=== PATIENT | female | born 1950 | race Hispanic/Latino ===

== ENCOUNTER 2017-03-18 13:21 | Emergency (ER) | payer MEDICARE, BC ==
[~2017-03-18] VITALS: Ht 165.1 cm; Wt 90.7 kg
[~2017-03-18 13:21] MED LIST: ALPRAZOLAM0.5 MG PO; COLESTIPOL HCL1 GM PO; EMBREL; ENBREL25 MG INJ; GABAPENTIN100 MG PO; HYDROCODONE; HYDROXYZINE HCL25 MG PO; LYRICA50 MG PO; MYRBETRIQ50 MG PO; NORCO 10-325 T1 EACH PO; OTEZLA; OXYBUTYNIN CHLO10 MG PO; OXYBUTYNIN CHLOR5 M1 PO; OXYBUTYNIN PO; PANTOPRAZOLE SO40 MG PO; PEPCID20 MG PO; SERTRALINE HCL50 MG PO; TRAMADOL-ACETAMI1 EA PO; TRAZODONE HCL50 MG PO; TRAZODONE PO; TRIAMCINOLONE A15 G3 TOP; TYLENOL WITH C1 EACH PO; ULTRAM 50MG50 MG PO; VICTOZA; VICTOZA 3-0.6 MG/0.1 IJ; VICTOZA INJ; VICTOZA PO; VIIBRYD40 MG PO; XARELTO10 MG PO; ZANTAC
[2017-03-18 14:53] LABS: BASOPHILS % 0.6 % (0.0-1.0); BILIRUBIN,URINE NEGATIVE (NEGATIVE); CLARITY,URINE HAZY (CLEAR); COLOR,URINE RED (YELLOW); EOSINOPHILS # (AUTO) 0.3 (0.0-0.4); EOSINOPHILS % 9.5 % (0.0-6.0); HEMATOCRIT 33.3 % (34.2-44.1); KETONES,URINE NEGATIVE (NEGATIVE); LEUKOCYTE ESTERASE ,URINE NEGATIVE (NEGATIVE); LYMPHOCYTES # (AUTO) 0.9 (1.0-3.2); LYMPHOCYTES % 25.8 % (18.0-39.1); MEAN CORPUSCULAR HEMOGLOBIN 33.4 pg (28-32); MEAN CORPUSCULAR VOLUME 101.2 fL (81-99); MONOCYTES # (AUTO) 0.3 (0.2-0.8); MONOCYTES % 7.3 % (4.4-11.3); NEUTROPHILS % 56.5 % (38.7-80.0); NITRITE,URINE NEGATIVE (NEGATIVE); PLATELET COUNT 65 x10e3/uL (140-360); PROTEIN,URINE DIPSTICK 3+ (NEGATIVE); RED BLOOD COUNT 3.29 x10e6/uL (3.6-5.1); RED CELL DISTRIBUTION WIDTH 17.2 % (11.7-14.4); URINE UROBILINOGEN 0.2 mg/dL (0.2 - 1)
[2017-03-18 15:00] LABS: INR 1.06; PROTHROMBIN TIME 14.3 seconds (11.9-14.5)
[2017-03-18 15:01] LABS: PARTIAL THROMBOPLASTIN TIME 31.8 seconds (23.8-35.5)
[2017-03-18 15:05] LABS: RBC,URINE >50 /HPF (0-5); WBC,URINE (MAN) 0-5 /HPF (0-5)
[2017-03-18 15:06] LABS: BACTERIA,URINE FEW /HPF; EPITHELIAL CELLS,URINE FEW /LPF; MUCUS,URINE MODERATE (RARE)
[2017-03-18 15:10] LABS: ALANINE AMINOTRANSFERASE 25 IU/L (0-55); ALBUMIN/GLOBULIN RATIO 0.6 (0.8-2.0); ALKALINE PHOSPHATASE 298 IU/L (40-150); ANION GAP 12.3 mmol/L (8-16); BLOOD UREA NITROGEN 15 mg/dL (7-26); BUN/CREATININE RATIO 18 (6-25); CALCIUM 8.7 mg/dL (8.4-10.2); CARBON DIOXIDE 26 mmol/L (22-29); CHLORIDE 104 mmol/L (98-107); CREATININE, SERUM 0.82 mg/dL (0.57-1.11); EST GLOMERULAR FILTRATION RATE > 60 ML/MIN (60-); GLUCOSE 241 mg/dL (74-118); POTASSIUM 4.3 mmol/L (3.5-5.1); SODIUM 138 mmol/L (136-145)
[2017-03-18 16:17] VITALS: BP 110/73
== END 2017-03-18 16:35 | disposition home or self-care (01) ==
LOC: ER 13:21
DX: R31.9 Hematuria, unspecified (principal); I10 Essential (primary) hypertension; E11.9 Type 2 diabetes mellitus without complications; I25.2 Old myocardial infarction; I25.10 Atherosclerotic heart disease of native coronary artery without angina pectoris; G62.9 Polyneuropathy, unspecified; Z86.2 Personal history of diseases of the blood and blood-forming organs and certain disorders involving the immune mechanism
CPT/HCPCS: 36415; 80053; 81001; 85025; 85610; 85730; 99283

== ENCOUNTER 2017-07-28 16:42 | Inpatient (IN) | payer MEDICARE, BC ==
[~2017-07-28] VITALS: Ht 165.1 cm; Wt 99.3 kg
[2017-07-28] MEDS ORDERED: ASPIRIN 81 MG CHEW TAB PO ONE ×2 (17:00→22:30)
[2017-07-28 17:38] LABS: BASOPHILS % 0.7 % (0.0-1.0); EOSINOPHILS # (AUTO) 0.2 (0.0-0.4); HEMATOCRIT 34.1 % (34.2-44.1); LYMPHOCYTES # (AUTO) 1.3 (1.0-3.2); LYMPHOCYTES % 32.7 % (18.0-39.1); MEAN CORPUSCULAR HEMOGLOBIN 30.9 pg (28-32); MEAN CORPUSCULAR HGB CONC 32.3 g/dL (31-35); MEAN CORPUSCULAR VOLUME 95.8 fL (81-99); MONOCYTES # (AUTO) 0.4 (0.2-0.8); MONOCYTES % 9.2 % (4.4-11.3); NEUTROPHILS # (AUTO) 2.1 (2.1-6.9); NEUTROPHILS % 52.2 % (38.7-80.0); PLATELET COUNT 74 x10e3/uL (140-360); RED BLOOD COUNT 3.56 x10e6/uL (3.6-5.1); RED CELL DISTRIBUTION WIDTH 15.2 % (11.7-14.4)
[2017-07-28] MEDS ORDERED: ONDANSETRON HCL 4 MG ORAL DISINTEGRATING TAB PO ONE (17:45)
[2017-07-28 17:48] LABS: INR 1.25; PROTHROMBIN TIME 14.8 seconds (11.9-14.5)
[2017-07-28 17:49] LABS: PARTIAL THROMBOPLASTIN TIME 29.8 seconds (23.8-35.5)
[2017-07-28 17:59] LABS: ALANINE AMINOTRANSFERASE 36 IU/L (0-55); ALBUMIN 3.3 g/dL (3.5-5.0); ALBUMIN/GLOBULIN RATIO 0.8 (0.8-2.0); ALKALINE PHOSPHATASE 239 IU/L (40-150); ANION GAP 12.6 mmol/L (8-16); BLOOD UREA NITROGEN 12 mg/dL (7-26); BUN/CREATININE RATIO 16 (6-25); CALCIUM 8.5 mg/dL (8.4-10.2); CARBON DIOXIDE 27 mmol/L (22-29); CHLORIDE 106 mmol/L (98-107); CREATINE KINASE 311 IU/L (29-168); CREATININE, SERUM 0.74 mg/dL (0.57-1.11); EST GLOMERULAR FILTRATION RATE > 60 ML/MIN (60-); GLUCOSE 164 mg/dL (74-118); POTASSIUM 3.6 mmol/L (3.5-5.1); SODIUM 142 mmol/L (136-145)
[2017-07-28 18:30] LABS: CLARITY,URINE SL CLOUDY (CLEAR); COLOR,URINE YELLOW (YELLOW); KETONES,URINE NEGATIVE (NEGATIVE); LEUKOCYTE ESTERASE ,URINE NEGATIVE (NEGATIVE); NITRITE,URINE NEGATIVE (NEGATIVE); PROTEIN,URINE DIPSTICK NEGATIVE (NEGATIVE)
[2017-07-28 18:31] LABS: BILIRUBIN,URINE NEGATIVE (NEGATIVE); URINE UROBILINOGEN 4 mg/dL (0.2 - 1)
[2017-07-28 18:43] LABS: BACTERIA,URINE MANY /HPF; RBC,URINE 0-5 /HPF (0-5); WBC,URINE (MAN) 0-5 /HPF (0-5)
--- NOTE | 2017-07-28 18:43 | Diagnostic Imaging Report ---
PROCEDURE: A single AP view of the chest. COMPARISON: Patients [facility], , CHEST SINGLE (PORTABLE), 02/05/2017, 11:56. INDICATIONS: CHEST PAIN FINDINGS: Lines/tubes: None. Lungs: The lungs are well inflated and clear. There is no evidence of pneumonia or overt pulmonary edema. Pleura: There is no pleural effusion or pneumothorax. Heart and mediastinum: Stable mild prominence of the cardiac silhouette, which may be partly due to AP projection. Central pulmonary venous congestion. Bones: No acute bony abnormality. IMPRESSION: 1. mild central pulmonary venous congestion. Girma Jamison M.D. Dictated by: Girma Jamison M.D. on 07/28/2017 at 18:45 Electronically approved by: Girma Jamison M.D. on 07/28/2017 at 18:45
[2017-07-28 18:44] LABS: EPITHELIAL CELLS,URINE FEW /LPF; MUCUS,URINE FEW (RARE)
[2017-07-28] MEDS ORDERED: PANTOPRAZOLE 40 MG 10ML VIAL IV STA (20:37)
[2017-07-28] MEDS ORDERED: SODIUM CHLORIDE 0.9% 1000ML 1,000 ML IV STA (20:37)
--- NOTE | 2017-07-28 22:18 | Diagnostic Imaging Report ---
EXAM: CT CHEST W DATE: 07/28/2017 8:37 PM INDICATION: \S\PE PROTOCOL, PLEURITIC CP/SOB AND POS D-DIMER \S\[id number] \S\2100 COMPARISON: None TECHNIQUE: Multidetector CT scanning of the chest was performed. Coronal and sagittal multiplanar reformations were obtained. IV Contrast: 100 ml Isovue 370/300 FINDINGS: LUNGS AND PLEURA: Nonspecific 5 mm right upper lobe nodule. Mild bibasilar scarring with right lower lobe bronchiolectasis. HEART, MEDIASTINUM, VESSELS: Cardiomegaly. Scattered coronary artery and aortic atherosclerotic calcification. Main pulmonary artery is mildly enlarged, 3.3 cm. Slightly suboptimal contrast bolus; otherwise no evidence of acute pulmonary artery embolism. UPPER ABDOMEN: Cirrhotic liver with splenomegaly. Cholecystectomy MUSCULOSKELETAL: Incidental remote anterior right rib fracture. IMPRESSION: 1. No evidence of acute pulmonary artery embolism. 2. Nonspecific 5 mm right upper lobe nodule. Consider 12 month follow-up if at high risk for lung cancer. 3. Cirrhosis with evidence of portal hypertension. Signed by: Dr Julia Ortiz MD on 07/28/2017 10:15 PM
[2017-07-28] MEDS ORDERED: DEXTROSE 50% SYRINGE 50 ML IV PRN (22:30)
[2017-07-29] VITALS (8 sets, daily range): BP systolic 113–169; BP diastolic 65–94
[2017-07-29] MEDS ORDERED: GABAPENTIN 100 MG CAP PO SCH (00:45)
[2017-07-29] MEDS ORDERED: TRAZODONE HCL 50 MG TAB PO SCH ×2 (00:45→21:00)
[2017-07-29] MEDS ORDERED: HYDROCODONE PO SCH (00:45)
[2017-07-29 01:40] LABS: CREATINE KINASE 365 IU/L (29-168)
[2017-07-29 02:41] LABS: FREE THYROXINE INDEX 1.7548 (1.4-3.8); THYROID STIMULATING HORMONE 3.403 uIU/mL (0.350-4.940)
[2017-07-29] MEDS ORDERED: SODIUM CHLORIDE 0.9% 50ML 50 ML ONE (04:19)
[2017-07-29] MEDS ORDERED: IOPAMIDOL 370 MG/ML 200 ML INFUS..BTL INJ ONE (04:20)
[2017-07-29 07:07] LABS: ALANINE AMINOTRANSFERASE 32 IU/L (0-55); ALBUMIN 2.7 g/dL (3.5-5.0); ALBUMIN/GLOBULIN RATIO 0.8 (0.8-2.0); ALKALINE PHOSPHATASE 226 IU/L (40-150); ANION GAP 7.7 mmol/L (8-16); BLOOD UREA NITROGEN 11 mg/dL (7-26); BUN/CREATININE RATIO 17 (6-25); CALCIUM 8.1 mg/dL (8.4-10.2); CARBON DIOXIDE 27 mmol/L (22-29); CHLORIDE 105 mmol/L (98-107); CHOL/HDL RATIO 1.7 (3.0-3.6); CHOLESTEROL 134 MD/DL (0-199); CREATININE, SERUM 0.63 mg/dL (0.57-1.11); EST GLOMERULAR FILTRATION RATE > 60 ML/MIN (60-); GLUCOSE 116 mg/dL (74-118); HDL CHOLESTEROL 77 MG/DL (40-60); LDL CHOLESTEROL 46 MG/DL (60-130); POTASSIUM 3.7 mmol/L (3.5-5.1); SODIUM 136 mmol/L (136-145); TRIGLYCERIDES 55 MG/DL (0-149)
[2017-07-29 07:28] LABS: CREATINE KINASE 406 IU/L (29-168)
[2017-07-29 07:49] LABS: BASOPHILS % 1.1 % (0.0-1.0); EOSINOPHILS # (AUTO) 0.1 (0.0-0.4); EOSINOPHILS % 6.3 % (0.0-6.0); HEMATOCRIT 28.5 % (34.2-44.1); HEMOGLOBIN 9.3 g/dL (12.0-16.0); LYMPHOCYTES # (AUTO) 0.7 (1.0-3.2); LYMPHOCYTES % 36.5 % (18.0-39.1); MEAN CORPUSCULAR HEMOGLOBIN 30.9 pg (28-32); MEAN CORPUSCULAR HGB CONC 32.6 g/dL (31-35); MEAN CORPUSCULAR VOLUME 94.7 fL (81-99); MONOCYTES # (AUTO) 0.2 (0.2-0.8); MONOCYTES % 10.6 % (4.4-11.3); NEUTROPHILS # (AUTO) 0.9 (2.1-6.9); NEUTROPHILS % 45.5 % (38.7-80.0); RED BLOOD COUNT 3.01 x10e6/uL (3.6-5.1); RED CELL DISTRIBUTION WIDTH 15.1 % (11.7-14.4)
[2017-07-29 07:56] LABS: PLATELET COUNT 47 x10e3/uL (140-360)
[2017-07-29] MEDS: INSULIN REGULAR, HUMAN 100 UNIT/1 ML 3ML VIAL SQ SCH ×4 (09:29→20:42)
[2017-07-29] MEDS: ASPIRIN 81 MG ENTERIC COATED PO SCH (09:29)
[2017-07-29 09:41] LABS: PLATELET ESTIMATE MARKEDLY DECREASED; PLATELET MORPHOLOGY COMMENT FEW LARGE; RBC MORPHOLOGY COMMENT NORMAL
[2017-07-29 09:42] LABS: ANISOCYTOSIS SLIG; HYPOCHROMASIA SLIGHT; POIKILOCYTOSIS SLIGHT
[2017-07-29] MEDS: GABAPENTIN 300 MG CAP PO SCH ×2 (15:03→20:44)
[2017-07-29 15:29] LABS: CREATINE KINASE 405 IU/L (29-168)
[2017-07-29] MEDS ORDERED: ACETAMINOPHEN 325 MG TAB PO PRN ×2 (16:15→18:45)
[2017-07-29] MEDS: HYDROCODONE/APAP 5MG-325MG TAB PO PRN ×2 (16:54→23:36)
[2017-07-29] MEDS: AMLODIPINE BESYLATE 5 MG TAB PO SCH (18:36)
[2017-07-29] MEDS: METOPROLOL TARTRATE 25 MG TAB PO SCH (18:36)
--- NOTE | 2017-07-29 20:03 | History and Physical ---
HISTORY OF PRESENT ILLNESS: A 66-year-old female, past medical history positive for diabetes with polyneuropathy, cirrhosis of the liver, history of right above knee amputation that came to the hospital because she was transferred from Dr. Terry's office because of palpitation and chest pain. So far, EKG is normal and troponins are completely normal. REVIEW OF SYSTEMS: CARDIOVASCULAR: She did have an episode of chest pain which is resolved and palpitations which are resolved. RESPIRATORY: No shortness of breath. No cough. GASTROINTESTINAL: No nausea, no vomiting, no diarrhea. GENITOURINARY: No dysuria, but she does have frequent urination. ALLERGIES: ALLERGIC TO MORPHINE. SOCIAL HISTORY: She does not smoke. She does not drink. PAST MEDICAL HISTORY: Overactive bladder, diabetes mellitus type 2 with polyneuropathy, cirrhosis of the liver, pancytopenia, history of right above knee amputation, history of obesity, history of hypertension, history of anemia, history hyperlipidemia, gastroesophageal reflux disease, anxiety, depression. PHYSICAL EXAMINATION: VITAL SIGNS: Blood pressure 146/88, temperature 98.8, heart rate 96 per minute, respiratory rate is 18 per minute, oxygen saturation 97%. Chest CT is completely normal. No evidence of pulmonary embolism. She has a lung nodule. LABS: On the BMP, sodium 136, potassium 3.7, chloride 105, CO2 27, BUN 11, creatinine 0.63, glucose 116. On the CBC, white blood count 1.99, hemoglobin 9.3, hematocrit 28.5, platelet count 47,000. PT 14.8, INR 1.25, PTT 29.8. AST 76, ALT 32, total bilirubin 1.5, alkaline phosphatase 226. FINAL IMPRESSION: 1. Episode of chest pain with negative troponins and normal electrocardiogram. 2. Palpitations which are resolved. 3. Overactive bladder. 4. Uncontrolled diabetes mellitus type 2 with diabetic polyneuropathy. 5. Cirrhosis of the liver. 6. Pancytopenia secondary to cirrhosis of the liver. 7. Left knee pain. 8. Bilateral shoulder pain. PLAN OF TREATMENT: We are going to continue aspirin 81 mg daily. Continue monitoring blood sugar a.c. and nightly. [place] 5 per 325 mg q.4 h. as needed for severe pain and Tylenol 325 mg q.4 h. as needed for mild to moderate pain or fever. Continue gabapentin 600 mg twice a day. She is taking trazodone 100 mg at bedtime also. Cardiology consult with Dr. Terry. We are going to also start her on Vesicare 5 mg daily for the overactive bladder and I am going to order UA and urine culture also. Continue with the rest of medications. We are going to also consult Dr. Tripathi for physical therapy. The patient is unable to ambulate due to the right above knee amputation. She is extremely limited because of that and progressive weakness. So we are going to see if she can qualify for inpatient rehab. Job#: [id number] LUIS FELIPE
--- NOTE | 2017-07-29 20:10 | Diagnostic Imaging Report ---
EXAMINATION: SHOULDER RIGHT COMPLETE 07/29/2017 6:37 PM COMPARISON: None INDICATION: Right shoulder pain DISCUSSION: 2 views of the right shoulder (AP internal and external rotation) Internal and external rotation are adequate No fracture or dislocation. Degenerative changes at the right acromioclavicular joint. Soft tissues are unremarkable IMPRESSION: No acute radiographic abnormality of the right shoulder Gatito Moreau MD Signed by: Dr. Gatito Moreau M.D. on 07/29/2017 8:07 PM
--- NOTE | 2017-07-29 20:11 | Diagnostic Imaging Report ---
EXAMINATION: SHOULDER LEFT COMPLETE 07/29/2017 6:37 PM COMPARISON: None INDICATION: Left shoulder pain DISCUSSION: 2 views of the left shoulder (AP internal and external rotation) Internal and external rotation are adequate No fracture or dislocation. Joint spaces are maintained. Soft tissues are unremarkable IMPRESSION: No acute radiographic abnormality of the left shoulder Gatito Moreau MD Signed by: Dr. Gatito Moreau M.D. on 07/29/2017 8:08 PM
--- NOTE | 2017-07-29 20:14 | Diagnostic Imaging Report ---
EXAMINATION: KNEE LEFT THREE VIEWS 07/29/2017 6:37 PM COMPARISON: None INDICATION: Left knee and ankle pain DISCUSSION: 2 views of the left knee (AP and lateral) Hardware components of a left total knee arthroplasty are in anatomic alignment. No evidence of loosening or other hardware complication. No fracture or dislocation. There is heterotopic bone formation. No fracture. IMPRESSION: Postsurgical changes to the left knee. No fracture. Gatito Moreau MD Signed by: Dr. Gatito Moreau M.D. on 07/29/2017 8:11 PM
--- NOTE | 2017-07-29 20:16 | Diagnostic Imaging Report ---
EXAMINATION: ANKLE 3+ VIEWS LEFT 07/29/2017 6:37 PM COMPARISON: None INDICATION: Left ankle pain DISCUSSION: 3 views of the left ankle (AP, lateral, and oblique) No fracture or dislocation. Degenerative changes of the left ankle. The bones are demineralized. Small calcaneal heel spur and Achilles tendon enthesophyte. Soft tissues are unremarkable IMPRESSION: No acute radiographic abnormality of the left ankle Gatito Moreau MD Signed by: Dr. Gatito Moreau M.D. on 07/29/2017 8:12 PM
[2017-07-29] MEDS: TRAZODONE HCL 50 MG TAB PO SCH (20:44)
--- NOTE | 2017-07-29 21:14 | Consultation ---
DATE OF CONSULTATION: July 29, 2017 REASON FOR CONSULTATION: 1. History of right AKA. 2. Cirrhosis of the liver. 3. Diabetes. 4. Diabetic peripheral polyneuropathy. 5. Recent chest pains. HISTORY: This 66-year-old female who came in to the hospital because of chest pain and palpitations. EKG was normal. Troponins were normal. She has concomitant right AKA. She has a prosthesis, but says that the home health nurse that she was getting was pretty much not able to do anything for her, could not get her up and mobilize. She had a stump sales trainee. Her workup is in progress, and I am being asked to evaluate for rehab needs. The patient also had a recent fall about a week ago. PAST MEDICAL HISTORY: Includes diabetes, diabetic peripheral neuropathy, cirrhosis of the liver, pancytopenia, history of right AKA, obesity, hypertension, anemia, history of hyperlipidemia, reflux, anxiety, depression. PAST SURGICAL HISTORY: Right AKA. ALLERGIES: MORPHINE. HABITS: Nonsmoker, nondrinker. LABORATORY DATA: White cell count 1.89, hemoglobin 9.3, hematocrit 28.5, platelets 47,000, sodium 136. PHYSICAL EXAMINATION GENERAL: The patient is awake and alert, lying in bed in no apparent distress at this time, following commands. For the most part feels well; otherwise, except for some soreness to her backside where she fell. Sensory krishnamurthy, there is neuropathic changes to the left leg. Also, had some tingling sensation to right residual limb. The residual limb is healed well. EYES: Gaze is conjugate. HEART: Regular rate and rhythm. LUNGS: Clear. ABDOMEN: Obese. Bowel sounds are heard. EXTREMITIES: Full range of motion to the arms. She feels weak overall. The left leg demonstrates functional range of motion. The right leg she can move her hip fairly and again the stump has healed. She ___ with her stump sales trainee. IMPRESSION 1. Chest pains. Her pain has improved. Cardiac workup essentially negative. 2. Patient with right [id number] and has not in home therapy been able to get her up and mobilized and use her prosthesis properly. She, in fact, fell the other day. 3. Diabetic neuropathy effecting gait and mobility. 4. Obesity. 5. History of previous leg infections. 6. Cirrhosis of the liver. PLAN: Given her situation, the fact that she probably needs inpatient rehab, so that they can really work on her prosthesis, and prosthetic gait training. She does not really have rehab outpatient, and given her medical issues and her functional issues, inpatient rehab would be of benefit because she will need medical management as well as acute PT and OT management. Will work on trying to get her to rehab on Tuesday. PRECAUTIONS: Falls. Thank you once again for allowing me to participate in the care of this very interesting patient. Job#: [id number]
--- NOTE | 2017-07-29 21:51 | Consultation ---
DATE OF CONSULTATION: CARDIOLOGY CONSULTATION REASON FOR CONSULTATION: Chest pain. PROFESSOR OF MUSIC PHYSICIAN: Dr. Granda. HISTORY OF PRESENT ILLNESS: Ms. Harden is a 66-year-old female that was seen in our clinic yesterday and requested to come to the ER due to reports of chest pain for the last 3 weeks and found to be in A-flutter with a rapid ventricular response. The patient reports experiencing chest pain at rest for the last 3 weeks, however, she was not sure what to do about it, she came to our clinic. Upon examination, the patient was requested to go to the ER. At this moment, the patient denies any chest pain or palpitation. Her EKG, she is currently in sinus rhythm. She does report that she had been in good health, however, she did experience a fall about a week ago and now is experiencing severe left knee and leg pain and also increased swelling. She denies any fever, chills, dizziness, syncope, dysuria or constipation. REVIEW OF SYSTEMS: Negative except as mentioned above. PAST MEDICAL HISTORY: 1. Diabetes mellitus. 2. Hypertension. 3. Dyslipidemia. 4. Prior infected right knee prosthesis, now status post AKA. 5. History of type 2 AR. 6. Anemia. 7. Thrombocytopenia. PAST SURGICAL HISTORY: Knee replacement, right AKA, hysterectomy, appendectomy. FAMILY HISTORY: Noncontributory. PHYSICAL EXAMINATION: VITAL SIGNS: Temperature 98.8, pulse 96, respiratory rate 18, blood pressure 146/88, oxygen saturation 97% on room air. GENERAL: Alert and oriented times 3. Resting comfortably in bed. Does not appear to be in any acute distress at this time. NECK: Supple. No JVD noted. LUNGS: Diminished breath sounds in posterior lower lobes. Otherwise, clear to auscultation. CARDIOVASCULAR: Regular rate and rhythm. Normal S1, S2. A 3/6 systolic ejection murmur noted. ABDOMEN: Soft, nontender. LOWER EXTREMITIES: Right AKA. Left lower extremity 4+ pitting edema, tender to touch. SKIN: Scattered psoriasis patches throughout. CARDIOVASCULAR MEDICATION: Aspirin 81 mg p.o. daily. LABS: WBC 1.89, hemoglobin 9.3, hematocrit 28.5, platelets 47,000. Sodium 136, potassium 3.7, BUN 11, creatinine 0.63. Creatinine kinase 405, CK-MB 2.80, troponin less than 0.001. LDL 46, HDL 77, total cholesterol 134, triglycerides 55. IMAGING: Chest x-ray with mild central pulmonary venous congestion. Chest CT with no evidence of pulmonary emboli and a nonspecific right upper lobe nodule and liver cirrhosis with evidence of hypertension. Telemetry: Sinus tachycardia. IMPRESSION: 1. Paroxysmal atrial flutter, currently in sinus rhythm. 2. Portal hypertension. 3. Liver cirrhosis. 4. Leukopenia. 5. Thrombocytopenia. 6. Anemia. PLAN: Continue with maintaining the patient on telemetry. Discontinue aspirin for now in the light of thrombocytopenia and platelet count less than 50,000. Initiate beta martha and calcium channel martha for now. Consider hematology consult. Obtain left lower extremity Doppler, rule out DVT. Echo ordered, already completed. Consider infectious disease consult in light of leukopenia above. Monitor this patient very closely. Thank you, Dr. Granda, for this consultation. Will continue to follow the patient. Job#: [id number]
[2017-07-30] VITALS (9 sets, daily range): BP systolic 105–135; BP diastolic 55–72
[2017-07-30] MEDS: INSULIN REGULAR, HUMAN 100 UNIT/1 ML 3ML VIAL SQ SCH ×4 (08:53→20:40)
[2017-07-30] MEDS: SOLIFENACIN SUCCINATE 5 MG TAB PO SCH (08:54)
[2017-07-30] MEDS: AMLODIPINE BESYLATE 5 MG TAB PO SCH (08:54)
[2017-07-30] MEDS: ASPIRIN 81 MG ENTERIC COATED PO SCH (08:54)
[2017-07-30] MEDS: GABAPENTIN 300 MG CAP PO SCH ×2 (08:54→20:38)
[2017-07-30] MEDS: FUROSEMIDE 40 MG TAB PO SCH (08:54)
[2017-07-30] MEDS: METOPROLOL TARTRATE 25 MG TAB PO SCH ×2 (08:54→16:55)
[2017-07-30] MEDS: LIRAGLUTIDE 0.6 MG IJ SCH (09:00)
[2017-07-30] MEDS ORDERED: ETANERCEPT 50 MG SQ SCH (09:00)
[2017-07-30] MEDS: HYDROCODONE/APAP 5MG-325MG TAB PO PRN ×2 (11:56→20:41)
--- NOTE | 2017-07-30 14:41 | Progress Note ---
DATE: July 30, 2017 CARDIOLOGY PROGRESS NOTE REFERRING PHYSICIAN: John Granda MD SUBJECTIVE: Shortness of breath overall improved. No chest pain currently, feels better. TELEMETRY: Sinus rhythm. OBJECTIVE VITAL SIGNS: Temperature 96.9, heart rate 67, respiratory rate 18, blood pressure 105/59. O2 sat is 98% on room air. GENERAL: No acute distress. CHEST: Clear to auscultation. CARDIOVASCULAR: Regular rate and rhythm. Normal S1 and S2. ABDOMEN: Soft. EXTREMITIES: Right AKA. There is 2+ edema to left lower extremity. Psoriasis patches throughout. CARDIOVASCULAR MEDICATIONS: Include: 1. Furosemide 40 mg daily. 2. Aspirin 81 mg daily. LABS: Studies from yesterday: White blood cells 1.8, hemoglobin 9.3, platelets 47. INR 1.2. Glucose 161. Troponins were negative x4. Creatinine was 0.6. ASSESSMENT 1. Paroxysmal atrial flutter, currently in sinus rhythm. 2. Portal hypertension. 3. Liver cirrhosis. 4. Pancytopenia. 5. Diabetes mellitus. 6. Hypertension. 7. Dyslipidemia. 8. Status post right above-knee amputation. 9. History of type-2 myocardial infarction in the past. RECOMMENDATIONS 1. Platelets less than 50,000. Can hold off aspirin for now. Once recovered, can resume as needed. 2. Beta martha and amlodipine as well as diuretics can be continued. 3. Consider hematology consultation. 4. Echo reviewed, please see report. 5. Will follow closely with you. Job#: [id number]
[2017-07-30] MEDS: TRAZODONE HCL 50 MG TAB PO SCH (20:38)
[2017-07-31] VITALS (7 sets, daily range): BP systolic 105–126; BP diastolic 59–75
[2017-07-31] MEDS: INSULIN REGULAR, HUMAN 100 UNIT/1 ML 3ML VIAL SQ SCH ×4 (07:30→20:36)
[2017-07-31] MEDS: LIRAGLUTIDE 0.6 MG IJ SCH (07:56)
[2017-07-31] MEDS: METOPROLOL TARTRATE 25 MG TAB PO SCH ×2 (08:44→16:42)
[2017-07-31] MEDS: ASPIRIN 81 MG ENTERIC COATED PO SCH (08:44)
[2017-07-31] MEDS: HYDROCODONE/APAP 5MG-325MG TAB PO PRN ×2 (08:44→20:21)
[2017-07-31] MEDS: GABAPENTIN 300 MG CAP PO SCH (08:44)
[2017-07-31] MEDS: FUROSEMIDE 40 MG TAB PO SCH (08:44)
[2017-07-31] MEDS: AMLODIPINE BESYLATE 5 MG TAB PO SCH (08:44)
[2017-07-31] MEDS: SOLIFENACIN SUCCINATE 5 MG TAB PO SCH (08:44)
[2017-07-31] MEDS ORDERED: ASPIRIN 81 MG CHEW TAB PO ONE (14:30)
--- NOTE | 2017-07-31 15:08 | Progress Note ---
DATE: July 31, 2017 CARDIOLOGY PROGRESS NOTE SUBJECTIVE: Feels better today. Breathing improved. No chest pain. OBJECTIVE VITALS: Temperature 98 degrees, heart rate 69, respiratory rate 19, blood pressure 105/59, O2 sat 95% on room air. GENERAL: No acute distress. CHEST: Clear to auscultation. CARDIOVASCULAR: Regular rate and rhythm. Normal S1 and S2. No S3. No S4. Systolic ejection murmur 1/6. ABDOMEN: Soft, nontender. EXTREMITIES: Right AKA. There is 1+ edema to left lower extremity. Psoriasis patches throughout. CARDIOVASCULAR MEDICATIONS 1. Furosemide 40 mg daily. 2. Amlodipine 5 mg daily. 3. Metoprolol titrate 25 mg b.i.d. 4. Aspirin 81 mg daily. TELEMETRY: Sinus rhythm. ASSESSMENT 1. Paroxysmal atrial flutter, currently in sinus rhythm. 2. Portal hypertension in the setting of liver cirrhosis. 3. Severe pancytopenia. 4. Diabetes mellitus. 5. Hypertension. 6. Dyslipidemia. 7. Status post right above-knee amputation. 8. History of type-2 myocardial infarction in the past. RECOMMENDATIONS 1. Continue current cardiovascular medications, beta martha and calcium channel martha. 2. For platelets less than 50,000, can hold aspirin. No cell block count today, will order for tomorrow. Glucose 170. Job#: [id number]
[2017-07-31 15:18] LABS: CREATINE KINASE 383 IU/L (29-168)
[2017-07-31] MEDS: SODIUM CHLORIDE 0.9% 1000ML 1,000 ML IV SCH (16:38)
[2017-07-31] MEDS: GABAPENTIN 400 MG CAP PO SCH (16:38)
[2017-07-31] MEDS: TRAZODONE HCL 50 MG TAB PO SCH (20:36)
[2017-08-01] VITALS: BP 112/70
[2017-08-01 04:15] VITALS: BP 95/56
[2017-08-01] MEDS: SODIUM CHLORIDE 0.9% 1000ML 1,000 ML IV SCH (05:10)
[2017-08-01 06:37] LABS: BASOPHILS % 0.7 % (0.0-1.0); EOSINOPHILS # (AUTO) 0.2 (0.0-0.4); HEMATOCRIT 28.4 % (34.2-44.1); LYMPHOCYTES # (AUTO) 0.9 (1.0-3.2); LYMPHOCYTES % 32.6 % (18.0-39.1); MEAN CORPUSCULAR HEMOGLOBIN 31.1 pg (28-32); MEAN CORPUSCULAR HGB CONC 32.4 g/dL (31-35); MEAN CORPUSCULAR VOLUME 95.9 fL (81-99); MONOCYTES # (AUTO) 0.4 (0.2-0.8); MONOCYTES % 13.8 % (4.4-11.3); NEUTROPHILS # (AUTO) 1.2 (2.1-6.9); NEUTROPHILS % 44.5 % (38.7-80.0); PLATELET COUNT 51 x10e3/uL (140-360); RED BLOOD COUNT 2.96 x10e6/uL (3.6-5.1); RED CELL DISTRIBUTION WIDTH 15.7 % (11.7-14.4)
[2017-08-01 06:41] LABS: HEMOGLOBIN 9.2 g/dL (12.0-16.0)
[2017-08-01] MEDS: INSULIN REGULAR, HUMAN 100 UNIT/1 ML 3ML VIAL SQ SCH ×4 (07:30→21:00)
[2017-08-01] MEDS: HYDROCODONE/APAP 5MG-325MG TAB PO PRN ×2 (07:42→21:01)
[2017-08-01] MEDS: LIRAGLUTIDE 0.6 MG IJ SCH (07:50)
[2017-08-01] MEDS: GABAPENTIN 400 MG CAP PO SCH ×2 (07:57→16:49)
[2017-08-01] MEDS: AMLODIPINE BESYLATE 5 MG TAB PO SCH (07:57)
[2017-08-01] MEDS: SOLIFENACIN SUCCINATE 5 MG TAB PO SCH (07:57)
[2017-08-01] MEDS: METOPROLOL TARTRATE 25 MG TAB PO SCH ×2 (07:57→16:49)
[2017-08-01] MEDS: FUROSEMIDE 40 MG TAB PO SCH (07:57)
[2017-08-01 08:00] VITALS: BP 114/55
--- NOTE | 2017-08-01 11:32 | Progress Note ---
DATE: August 01, 2017 CARDIOLOGY PROGRESS NOTE SUBJECTIVE: The patient denies chest pain or shortness of breath. She is pending admission to inpatient rehab. OBJECTIVE VITALS: Temperature 96.9 degrees, pulse 75, respiratory rate 18, blood pressure 114/55, oxygen saturation 98% on room air. GENERAL: Awake, alert, in no acute distress. CHEST: Clear to auscultation bilaterally. No wheezes or crackles. CARDIOVASCULAR: Normal rate, regular rhythm. Normal S1 and S2. A systolic murmur 1/6. ABDOMEN: Soft, nontender. EXTREMITIES: Status post right AKA. There is 1+ pitting edema in the left lower extremity. Psoriasis noted. CARDIAC MEDICATIONS 1. Furosemide 40 mg p.o. daily. 2. Amlodipine 5 mg p.o. daily. 3. Metoprolol titrate 25 mg p.o. b.i.d. LABS: WBC 2.76, hemoglobin 9.2, hematocrit 28.4, platelets 51. TELEMETRY: Normal sinus rhythm. IMPRESSION 1. Paroxysmal atrial flutter, currently sinus rhythm. 2. Portal hypertension in the setting of liver cirrhosis. 3. Severe pancytopenia. 4. Diabetes mellitus. 5. Hypertension. 6. Dyslipidemia. 7. Status post right above-knee amputation. 8. History of type-2 myocardial infarction. RECOMMENDATIONS: Continue current cardiac medications. The patient is not anticoagulated due to her thrombocytopenia. As her platelets have now risen over 50,000, resume low-dose aspirin. Monitor patient on telemetry. Thank you for this consult. We will continue to follow. Job#: [id number]
[2017-08-01 11:59] VITALS: BP 114/64
[2017-08-01] MEDS: DIPHENHYDRAMINE HCL 25 MG CAP PO PRN ×2 (13:36→19:43)
[2017-08-01 15:09] LABS: BILIRUBIN,URINE NEGATIVE (NEGATIVE); CLARITY,URINE CLEAR (CLEAR); COLOR,URINE YELLOW (YELLOW); KETONES,URINE NEGATIVE (NEGATIVE); LEUKOCYTE ESTERASE ,URINE NEGATIVE (NEGATIVE); NITRITE,URINE NEGATIVE (NEGATIVE); PROTEIN,URINE DIPSTICK NEGATIVE (NEGATIVE); URINE UROBILINOGEN 0.2 mg/dL (0.2 - 1)
[2017-08-01 15:18] LABS: EPITHELIAL CELLS,URINE RARE /LPF; MUCUS,URINE FEW (RARE); RBC,URINE 0-5 /HPF (0-5); WBC,URINE (MAN) 0-5 /HPF (0-5)
[2017-08-01 16:00] VITALS: BP 121/62
[2017-08-01 20:00] VITALS: BP 130/74
[2017-08-01] MEDS: TRAZODONE HCL 50 MG TAB PO SCH (21:00)
[2017-08-02] VITALS: BP 135/70
[2017-08-02 04:00] VITALS: BP 121/69
[2017-08-02] MEDS: INSULIN REGULAR, HUMAN 100 UNIT/1 ML 3ML VIAL SQ SCH ×3 (07:30→16:30)
[2017-08-02 07:48] VITALS: BP 106/72
[2017-08-02] MEDS: FUROSEMIDE 40 MG TAB PO SCH (08:12)
[2017-08-02] MEDS: GABAPENTIN 400 MG CAP PO SCH ×2 (08:12→16:35)
[2017-08-02] MEDS: SOLIFENACIN SUCCINATE 5 MG TAB PO SCH (08:12)
[2017-08-02] MEDS: METOPROLOL TARTRATE 25 MG TAB PO SCH ×2 (09:00→16:45)
[2017-08-02] MEDS ORDERED: ASPIRIN 81 MG ENTERIC COATED PO SCH (09:00)
[2017-08-02] MEDS: LIRAGLUTIDE 0.6 MG IJ SCH (09:00)
[2017-08-02] MEDS: AMLODIPINE BESYLATE 5 MG TAB PO SCH (09:00)
[2017-08-02 11:57] VITALS: BP 106/72
[2017-08-02 12:20] VITALS: BP 125/92
--- NOTE | 2017-08-02 14:29 | Progress Note ---
DATE: August 02, 2017 CARDIOLOGY PROGRESS NOTE SUBJECTIVE: Patient denies chest pain or shortness of breath. She is awaiting transfer to inpatient rehab. OBJECTIVE VITAL SIGNS: Temperature 96.4 degrees, pulse 89, respiratory rate 18, blood pressure 125/92, oxygen saturation 95% on room air. GENERAL: Awake, alert, in no acute distress. LUNGS: Clear to auscultation bilaterally. No wheezes or crackles. CARDIOVASCULAR: Normal rate, regular rhythm. Normal S1 and S2. Systolic murmur 1/6. ABDOMEN: Soft, nontender. EXTREMITIES: Status post right AKA, 1+ pitting edema of the left lower extremity. Dressings are noted. Psoriasis is present. CARDIAC MEDICATIONS 1. Aspirin 81 mg p.o. daily. 2. Furosemide 40 mg p.o. daily. 3. Amlodipine 5 mg p.o. daily. 4. Metoprolol tartrate 25 mg p.o. b.i.d. LABS: None today. TELEMETRY: Normal sinus rhythm. IMPRESSION 1. Paroxysmal atrial flutter, currently sinus rhythm. 2. Portal hypertension in the setting of liver cirrhosis. 3. Severe pancytopenia. 4. Diabetes mellitus. 5. Hypertension. 6. Dyslipidemia. 7. Status post right above-knee amputation. 8. History of type II myocardial infarction. RECOMMENDATIONS: Continue current cardiac medications. Patient is not on anticoagulation due to her thrombocytopenia. Monitor patient on telemetry while she is admitted. Physical therapy and rehabilitation as tolerated. Thank you for this consult. We will continue to follow. Job#: [id number] EV
[2017-08-02 15:55] VITALS: BP 121/83
--- NOTE | 2017-08-02 16:12 | Discharge Summary ---
Ms. Harden is a 66-year-old female with history of diabetes with neuropathy, liver cirrhosis, right above-knee amputation. She came to the emergency room complaining of chest pain and palpitations. She was seen by the international editorial producer. EKG and troponin were normal. Then the patient was found to have pancytopenia secondary to cirrhosis. The plan is today she is going to go to [facility] to continue her treatment. On physical examination, she is awake and alert. Temperature is 97.4, blood pressure 106/72. The heart is regular rate. The lungs are clear to auscultation. Abdomen is soft. On the blood work, potassium is 3.7, creatinine 0.63, glucose 116, white count 2.76, hemoglobin 9.2, platelets 51. ASSESSMENT AND PLAN 1. Episode of chest pain and palpitations, resolved. 2. Overactive bladder on VESIcare. 3. Urinary frequency. We are going to put a Wynn catheter. 4. Uncontrolled diabetes with neuropathy. 5. Liver cirrhosis. 6. Pancytopenia. 7. Right above-knee amputation of the leg. The plan at the present time is to continue all the medications. The patient is going to be transferred to [facility] to continue her treatment. All of this was discussed with the patient, and all questions were answered to satisfaction. Please see home medication reconciliation list. Job#: [id number]
[2017-08-02] MEDS: DIPHENHYDRAMINE HCL 25 MG CAP PO PRN (17:15)
[2017-08-02] MEDS: HYDROCODONE/APAP 5MG-325MG TAB PO PRN (17:15)
== END 2017-08-02 17:44 | DRG 309 ==
LOC: ER 16:49 → MED/SURG3 23:06
PROVIDERS: ADMIT Internal Medicine; ATTEND Internal Medicine
DX: I48.92 Unspecified atrial flutter (principal); D61.818 Other pancytopenia; K74.60 Unspecified cirrhosis of liver; D69.6 Thrombocytopenia, unspecified; E78.5 Hyperlipidemia, unspecified; I10 Essential (primary) hypertension; I25.2 Old myocardial infarction; D64.9 Anemia, unspecified; K21.9 Gastro-esophageal reflux disease without esophagitis; Z88.5 Allergy status to narcotic agent; R00.2 Palpitations; N32.81 Overactive bladder; E11.42 Type 2 diabetes mellitus with diabetic polyneuropathy; E11.65 Type 2 diabetes mellitus with hyperglycemia; M25.562 Pain in left knee; M25.512 Pain in left shoulder; Z89.611 Acquired absence of right leg above knee; D72.819 Decreased white blood cell count, unspecified; R35.0 Frequency of micturition
CPT/HCPCS: 36415; 71045; 71260; 80053; 80061; 81001; 82550; 82553; 82948; 83880; 84436; 84443; 84479; 84484; 85025; 85379; 85610; 85730; 93005; 93306; 93971; 97139; 99284; J7030; Q9967

== ENCOUNTER → 2018-03-06 | Outpatient (CLI) | payer MEDICARE, BC ==
[2018-03-06 17:52] LABS: BASOPHILS % 0.5 % (0.0-1.0); HEMOGLOBIN 8.4 g/dL (12.0-16.0); LYMPHOCYTES % 23.4 % (18.0-39.1); MEAN CORPUSCULAR HEMOGLOBIN 30.8 pg (28-32); MEAN CORPUSCULAR HGB CONC 31.1 g/dL (31-35); MEAN CORPUSCULAR VOLUME 98.9 fL (81-99); MONOCYTES # (AUTO) 0.3 (0.2-0.8); MONOCYTES % 8.3 % (4.4-11.3); NEUTROPHILS # (AUTO) 2.8 (2.1-6.9); NEUTROPHILS % 67.6 % (38.7-80.0); PLATELET COUNT 87 x10e3/uL (140-360); RED BLOOD COUNT 2.73 x10e6/uL (3.6-5.1); RED CELL DISTRIBUTION WIDTH 19.4 % (11.7-14.4)
[2018-03-06 18:54] LABS: ERYTHROCYTE SEDIMENTATION RATE 115 mm/hr (0-20)
== END ==
LOC: LAB 17:05
PROVIDERS: ATTEND Specialist
DX: T84.53XD Infection and inflammatory reaction due to internal right knee prosthesis, subsequent encounter (principal)
CPT/HCPCS: 36415; 85025; 85651; 86140

== ENCOUNTER 2018-05-11 11:50 | Inpatient (IN) | payer MEDICARE, BC ==
[~2018-05-11] VITALS: Ht 165.1 cm; Wt 101.2 kg
--- OUTSIDE RECORDS SUMMARY | 2018-05-11 11:57 | XMS REPORT ---
[facility] Address Unknown Phone Unavailable Care Team Providers Care Private Duty Lpn Name Role Phone JESSICA JOHN Unavailable Unavailable Jeanna WONG Unavailable Unavailable EDEN ALVAREZ Unavailable Unavailable Payers Payer Name Policy Type Policy Number Effective Date Expiration Date Problems This patient has no known problems. Allergies, Adverse Reactions, Alerts Allergy Name Allergy Type Status Severity Reaction(s) Onset Date Inactive Date Treating Clinician Comments No Known Allergies DA Active U 2018-04-18 00:00:00 No Known Allergies DA Active U 2018-04-07 00:00:00 No Known Allergies DA Active U 2018-01-25 00:00:00 No Known Allergies DA Active U 2017-10-19 00:00:00 Medications This patient has no known medications. Results Test Description Test Time Test Comments Text Results Atomic Results Result Comments GLUBED 2018-04-24 16:48:00 GLUBED (test code=GLUBED) 130 mg/dL 74-106 Performed by certified paper core machine operator at [facility] [id number] 11:41:00* Test Item Value Reference Range Comments GLUBED (test code=GLUBED) 134 mg/dL 74-106 Performed by certified paper core machine operator at [facility] [id number] 07:04:00* Test Item Value Reference Range Comments GLUBED (test code=GLUBED) 141 mg/dL 74-106 [facility] paper core [facility] [id number] 21:36:00* Test Item Value Reference Range Comments GLUBED (test code=GLUBED) 229 mg/dL 74-106 [facility] certified paper core machine [facility] [id number] 16:49:00* Test Item Value Reference Range Comments GLUBED (test code=GLUBED) 142 mg/dL 74-106 Performed by certified paper core machine operator at [facility] [id number] 12:26:00* Test Item Value Reference Range Comments GLUBED (test code=GLUBED) 130 mg/dL 74-106 Performed by certified paper core machine operator at [facility] [id number] 07:00:00* Test Item Value Reference Range Comments GLUBED (test code=GLUBED) 130 mg/dL 74-106 [facility] certified paper core machine [facility] COMPREHENSIVE METABOLIC [id number] 05:10:00* Test Item Value Reference Range Comments SODIUM (test code=NA) 138 mmol/L 136-145 POTASSIUM (test code=K) 4.0 mmol/L 3.5-5.1 CHLORIDE (test code=CL) 104.0 mmol/L 98-107 CARBON DIOXIDE (test code=CO2) 25.0 mmol/L 21-32 ANION GAP (test code=GAP) 13.0 10-20 GLUCOSE (test code=GLU) 119 mg/dL 74-106 BLOOD UREA NITROGEN (test code=BUN) 26 mg/dL 7-18 GLOMERULAR FILTRATION RATE (test code=GFR) 45 mL/min >=60 Estimated GFR by using Modified MDRD formula.Chronic kidney disease is defined as either kidney damageor GFR <60 mL/min/1.73 m2 for >3 months. CREATININE (test code=CREAT) 1.20 mg/dL 0.55-1.02 Note change in reference range due to change in reagent. BUN/CREATININE RATIO (test code=BUN/CREA) 20.8 10-20 TOTAL PROTEIN (test code=PROT) 6.8 gram/dL 6.4-8.2 ALBUMIN (test code=ALB) 2.0 g/dL 3.4-5.0 GLOBULIN (test code=GLOB) 4.8 gram/dL 2.7-4.2 ALBUMIN/GLOBULIN RATIO (test code=A/G) 0.4 0.75-1.50 CALCIUM (test code=CA) 7.6 mg/dL 8.5-10.1 BILIRUBIN TOTAL (test code=BILT) 1.10 mg/dL 0.0-1.0 SGOT/AST (test code=AST) 59 IUnit/L 15-37 SGPT/ALT (test code=ALT) 30 IUnit/L 12-78 ALKALINE PHOSPHATASE TOTAL (test code=ALKP) 162 IUnit/L 45-117 Note change in reference range due to change in reagent. CBC W/AUTO [id number] 04:54:00* Test Item Value Reference Range Comments WHITE BLOOD CELL (test code=WBC) 4.3 K/mm3 4.5-12.5 RED BLOOD CELL (test code=RBC) 2.87 mill/mm3 3.7-5.2 HEMOGLOBIN (test code=HGB) 8.8 gram/dL 11.5-15.5 HEMATOCRIT (test code=HCT) 27.7 % 36.0-46.0 MEAN CELL VOLUME (test code=MCV) 96.5 fL 80-98 MEAN CELL HGB (test code=MCH) 30.7 picogram 27.0-33.0 MEAN CELL HGB CONCETRATION (test code=MCHC) 31.8 gram/dL 33.0-36.0 RED CELL DISTRIBUTION WIDTH (test code=RDW) 19.2 % 11.6-16.2 RED CELL DISTRIBUTION WIDTH SD (test code=RDW-SD) 65.6 fL 37.0-51.0 PLATELET COUNT (test code=PLT) 75 K/mm3 150-450 MEAN PLATELET VOLUME (test code=MPV) 10.9 fL 6.7-11.0 NEUTROPHIL % (test code=NT%) 65.4 % 39.0-69.0 IMMATURE GRANULOCYTE % (test code=IG%) 0.2 % 0.0-5.0 LYMPHOCYTE % (test code=LY%) 18.6 % 25.0-55.0 MONOCYTE % (test code=MO%) 12.0 % 0.0-10.0 EOSINOPHIL % (test code=EO%) 3.1 % 0.0-5.0 BASOPHIL % (test code=BA%) 0.7 % 0.0-1.0 NUCLEATED RBC % (test code=NRBC%) 0.0 % 0-0 NEUTROPHIL # (test code=NT#) 2.78 K/mm3 1.8-7.7 IMMATURE GRANULOCYTE # (test code=IG#) 0.01 x10 3/uL 0-0.03 LYMPHOCYTE # (test code=LY#) 0.79 K/mm3 1.0-5.0 MONOCYTE # (test code=MO#) 0.51 K/mm3 0-0.8 EOSINOPHIL # (test code=EO#) 0.13 K/mm3 0.0-0.5 BASOPHIL # (test code=BA#) 0.03 K/mm3 0.0-0.2 NUCLEATED RBC # (test code=NRBC#) 0.00 K/mm3 0.0-0.1 MANUAL DIFF REQUIRED (test code=MDIFF) NO, ONLY SCAN NEEDED DIFFERENTIAL [id number] 04:54:00* Test Item Value Reference Range Comments STAIN ACCEPTABILITY (test code=STN ACCEPTABLE) STAIN ACCEPTABLE POLYCHROMASIA (test code=POLC) 1+ ANISOCYTOSIS (test code=ANISO) 1+ PLATELET ESTIMATE (test code=PLTEST) DECREASED PLATELET MORPHOLOGY (test code=PLTMORPH) NORMAL [id number] 04:54:00* Test Item Value Reference Range Comments AMMONIA (test code=AMM) 125 umol/L 11-32 COMPREHENSIVE METABOLIC [id number] 04:50:00* Test Item Value Reference Range Comments SODIUM (test code=NA) 138 mmol/L 136-145 POTASSIUM (test code=K) 4.0 mmol/L 3.5-5.1 CHLORIDE (test code=CL) 104.0 mmol/L 98-107 CARBON DIOXIDE (test code=CO2) mmol/L 21-32 ANION GAP (test code=GAP) 10-20 GLUCOSE (test code=GLU) mg/dL 74-106 BLOOD UREA NITROGEN (test code=BUN) mg/dL 7-18 GLOMERULAR FILTRATION RATE (test code=GFR) mL/min >=60 CREATININE (test code=CREAT) mg/dL 0.55-1.02 BUN/CREATININE RATIO (test code=BUN/CREA) 10-20 TOTAL PROTEIN (test code=PROT) gram/dL 6.4-8.2 ALBUMIN (test code=ALB) g/dL 3.4-5.0 GLOBULIN (test code=GLOB) gram/dL 2.7-4.2 ALBUMIN/GLOBULIN RATIO (test code=A/G) 0.75-1.50 CALCIUM (test code=CA) mg/dL 8.5-10.1 BILIRUBIN TOTAL (test code=BILT) mg/dL 0.0-1.0 SGOT/AST (test code=AST) IUnit/L 15-37 SGPT/ALT (test code=ALT) IUnit/L 12-78 ALKALINE PHOSPHATASE TOTAL (test code=ALKP) IUnit/L 45-117 CBC W/AUTO [id number] 04:38:00* Test Item Value Reference Range Comments WHITE BLOOD CELL (test code=WBC) 4.3 K/mm3 4.5-12.5 RED BLOOD CELL (test code=RBC) 2.87 mill/mm3 3.7-5.2 HEMOGLOBIN (test code=HGB) 8.8 gram/dL 11.5-15.5 HEMATOCRIT (test code=HCT) 27.7 % 36.0-46.0 MEAN CELL VOLUME (test code=MCV) 96.5 fL 80-98 MEAN CELL HGB (test code=MCH) 30.7 picogram 27.0-33.0 MEAN CELL HGB CONCETRATION (test code=MCHC) 31.8 gram/dL 33.0-36.0 RED CELL DISTRIBUTION WIDTH (test code=RDW) 19.2 % 11.6-16.2 RED CELL DISTRIBUTION WIDTH SD (test code=RDW-SD) 65.6 fL 37.0-51.0 PLATELET COUNT (test code=PLT) 75 K/mm3 150-450 MEAN PLATELET VOLUME (test code=MPV) 10.9 fL 6.7-11.0 NEUTROPHIL % (test code=NT%) 65.4 % 39.0-69.0 IMMATURE GRANULOCYTE % (test code=IG%) 0.2 % 0.0-5.0 LYMPHOCYTE % (test code=LY%) 18.6 % 25.0-55.0 MONOCYTE % (test code=MO%) 12.0 % 0.0-10.0 EOSINOPHIL % (test code=EO%) 3.1 % 0.0-5.0 BASOPHIL % (test code=BA%) 0.7 % 0.0-1.0 NUCLEATED RBC % (test code=NRBC%) 0.0 % 0-0 NEUTROPHIL # (test code=NT#) 2.78 K/mm3 1.8-7.7 IMMATURE GRANULOCYTE # (test code=IG#) 0.01 x10 3/uL 0-0.03 LYMPHOCYTE # (test code=LY#) 0.79 K/mm3 1.0-5.0 MONOCYTE # (test code=MO#) 0.51 K/mm3 0-0.8 EOSINOPHIL # (test code=EO#) 0.13 K/mm3 0.0-0.5 BASOPHIL # (test code=BA#) 0.03 K/mm3 0.0-0.2 NUCLEATED RBC # (test code=NRBC#) 0.00 K/mm3 0.0-0.1 MANUAL DIFF REQUIRED (test code=MDIFF) NO, ONLY SCAN NEEDED DIFFERENTIAL [id number] 04:38:00* Test Item Value Reference Range Comments STAIN ACCEPTABILITY (test code=STN ACCEPTABLE) CABOT RINGS (test code=CAB) MORPHOLOGY COMMENT (test code=MOC) PLATELET ESTIMATE (test code=PLTEST) PLATELET MORPHOLOGY (test code=PLTMORPH) CBC W/AUTO [id number] 04:38:00* Test Item Value Reference Range Comments WHITE BLOOD CELL (test code=WBC) 4.3 K/mm3 4.5-12.5 RED BLOOD CELL (test code=RBC) 2.87 mill/mm3 3.7-5.2 HEMOGLOBIN (test code=HGB) 8.8 gram/dL 11.5-15.5 HEMATOCRIT (test code=HCT) 27.7 % 36.0-46.0 MEAN CELL VOLUME (test code=MCV) 96.5 fL 80-98 MEAN CELL HGB (test code=MCH) 30.7 picogram 27.0-33.0 MEAN CELL HGB CONCETRATION (test code=MCHC) 31.8 gram/dL 33.0-36.0 RED CELL DISTRIBUTION WIDTH (test code=RDW) 19.2 % 11.6-16.2 RED CELL DISTRIBUTION WIDTH SD (test code=RDW-SD) 65.6 fL 37.0-51.0 PLATELET COUNT (test code=PLT) 75 K/mm3 150-450 MEAN PLATELET VOLUME (test code=MPV) 10.9 fL 6.7-11.0 NEUTROPHIL % (test code=NT%) 65.4 % 39.0-69.0 IMMATURE GRANULOCYTE % (test code=IG%) 0.2 % 0.0-5.0 LYMPHOCYTE % (test code=LY%) 18.6 % 25.0-55.0 MONOCYTE % (test code=MO%) 12.0 % 0.0-10.0 EOSINOPHIL % (test code=EO%) 3.1 % 0.0-5.0 BASOPHIL % (test code=BA%) 0.7 % 0.0-1.0 NUCLEATED RBC % (test code=NRBC%) 0.0 % 0-0 NEUTROPHIL # (test code=NT#) 2.78 K/mm3 1.8-7.7 IMMATURE GRANULOCYTE # (test code=IG#) 0.01 x10 3/uL 0-0.03 LYMPHOCYTE # (test code=LY#) 0.79 K/mm3 1.0-5.0 MONOCYTE # (test code=MO#) 0.51 K/mm3 0-0.8 EOSINOPHIL # (test code=EO#) 0.13 K/mm3 0.0-0.5 BASOPHIL # (test code=BA#) 0.03 K/mm3 0.0-0.2 NUCLEATED RBC # (test code=NRBC#) 0.00 K/mm3 0.0-0.1 MANUAL DIFF REQUIRED (test code=MDIFF) NO, ONLY SCAN NEEDED DIFFERENTIAL [id number] 04:38:00* Test Item Value Reference Range Comments STAIN ACCEPTABILITY (test code=STN ACCEPTABLE) MORPHOLOGY COMMENT (test code=MOC) PLATELET ESTIMATE (test code=PLTEST) PLATELET MORPHOLOGY (test code=PLTMORPH) CBC W/AUTO [id number] 04:38:00* Test Item Value Reference Range Comments WHITE BLOOD CELL (test code=WBC) 4.3 K/mm3 4.5-12.5 RED BLOOD CELL (test code=RBC) 2.87 mill/mm3 3.7-5.2 HEMOGLOBIN (test code=HGB) 8.8 gram/dL 11.5-15.5 HEMATOCRIT (test code=HCT) 27.7 % 36.0-46.0 MEAN CELL VOLUME (test code=MCV) 96.5 fL 80-98 MEAN CELL HGB (test code=MCH) 30.7 picogram 27.0-33.0 MEAN CELL HGB CONCETRATION (test code=MCHC) 31.8 gram/dL 33.0-36.0 RED CELL DISTRIBUTION WIDTH (test code=RDW) 19.2 % 11.6-16.2 RED CELL DISTRIBUTION WIDTH SD (test code=RDW-SD) 65.6 fL 37.0-51.0 PLATELET COUNT (test code=PLT) 75 K/mm3 150-450 MEAN PLATELET VOLUME (test code=MPV) 10.9 fL 6.7-11.0 NEUTROPHIL % (test code=NT%) 65.4 % 39.0-69.0 IMMATURE GRANULOCYTE % (test code=IG%) 0.2 % 0.0-5.0 LYMPHOCYTE % (test code=LY%) 18.6 % 25.0-55.0 MONOCYTE % (test code=MO%) 12.0 % 0.0-10.0 EOSINOPHIL % (test code=EO%) 3.1 % 0.0-5.0 BASOPHIL % (test code=BA%) 0.7 % 0.0-1.0 NUCLEATED RBC % (test code=NRBC%) 0.0 % 0-0 NEUTROPHIL # (test code=NT#) 2.78 K/mm3 1.8-7.7 IMMATURE GRANULOCYTE # (test code=IG#) 0.01 x10 3/uL 0-0.03 LYMPHOCYTE # (test code=LY#) 0.79 K/mm3 1.0-5.0 MONOCYTE # (test code=MO#) 0.51 K/mm3 0-0.8 EOSINOPHIL # (test code=EO#) 0.13 K/mm3 0.0-0.5 BASOPHIL # (test code=BA#) 0.03 K/mm3 0.0-0.2 NUCLEATED RBC # (test code=NRBC#) 0.00 K/mm3 0.0-0.1 MANUAL DIFF REQUIRED (test code=MDIFF) NO, ONLY SCAN NEEDED DIFFERENTIAL [id number] 04:38:00* Test Item Value Reference Range Comments STAIN ACCEPTABILITY (test code=STN ACCEPTABLE) MORPHOLOGY COMMENT (test code=MOC) PLATELET ESTIMATE (test code=PLTEST) PLATELET MORPHOLOGY (test code=PLTMORPH) CBC W/AUTO [id number] 04:38:00* Test Item Value Reference Range Comments WHITE BLOOD CELL (test code=WBC) 4.3 K/mm3 4.5-12.5 RED BLOOD CELL (test code=RBC) 2.87 mill/mm3 3.7-5.2 HEMOGLOBIN (test code=HGB) 8.8 gram/dL 11.5-15.5 HEMATOCRIT (test code=HCT) 27.7 % 36.0-46.0 MEAN CELL VOLUME (test code=MCV) 96.5 fL 80-98 MEAN CELL HGB (test code=MCH) 30.7 picogram 27.0-33.0 MEAN CELL HGB CONCETRATION (test code=MCHC) 31.8 gram/dL 33.0-36.0 RED CELL DISTRIBUTION WIDTH (test code=RDW) 19.2 % 11.6-16.2 RED CELL DISTRIBUTION WIDTH SD (test code=RDW-SD) 65.6 fL 37.0-51.0 PLATELET COUNT (test code=PLT) 75 K/mm3 150-450 MEAN PLATELET VOLUME (test code=MPV) 10.9 fL 6.7-11.0 NEUTROPHIL % (test code=NT%) 65.4 % 39.0-69.0 IMMATURE GRANULOCYTE % (test code=IG%) 0.2 % 0.0-5.0 LYMPHOCYTE % (test code=LY%) 18.6 % 25.0-55.0 MONOCYTE % (test code=MO%) 12.0 % 0.0-10.0 EOSINOPHIL % (test code=EO%) 3.1 % 0.0-5.0 BASOPHIL % (test code=BA%) 0.7 % 0.0-1.0 NUCLEATED RBC % (test code=NRBC%) 0.0 % 0-0 NEUTROPHIL # (test code=NT#) 2.78 K/mm3 1.8-7.7 IMMATURE GRANULOCYTE # (test code=IG#) 0.01 x10 3/uL 0-0.03 LYMPHOCYTE # (test code=LY#) 0.79 K/mm3 1.0-5.0 MONOCYTE # (test code=MO#) 0.51 K/mm3 0-0.8 EOSINOPHIL # (test code=EO#) 0.13 K/mm3 0.0-0.5 BASOPHIL # (test code=BA#) 0.03 K/mm3 0.0-0.2 NUCLEATED RBC # (test code=NRBC#) 0.00 K/mm3 0.0-0.1 MANUAL DIFF REQUIRED (test code=MDIFF) NO, ONLY SCAN NEEDED DIFFERENTIAL [id number] 04:38:00* Test Item Value Reference Range Comments STAIN ACCEPTABILITY (test code=STN ACCEPTABLE) CABOT RINGS (test code=CAB) MORPHOLOGY COMMENT (test code=MOC) PLATELET ESTIMATE (test code=PLTEST) PLATELET MORPHOLOGY (test code=PLTMORPH) [id number] 21:59:00* Test Item Value Reference Range Comments GLUBED (test code=GLUBED) 146 mg/dL 74-106 [facility] paper core [facility] [id number] 16:11:00* Test Item Value Reference Range Comments GLUBED (test code=GLUBED) 125 mg/dL 74-106 Performed by certified paper core machine operator at [facility] [id number] 06:36:00* Test Item Value Reference Range Comments GLUBED (test code=GLUBED) 112 mg/dL 74-106 [facility] certified paper core machine operator [facility] BASIC METABOLIC [id number] 06:05:00* Test Item Value Reference Range Comments SODIUM (test code=NA) 138 mmol/L 136-145 POTASSIUM (test code=K) 3.8 mmol/L 3.5-5.1 CHLORIDE (test code=CL) 104.0 mmol/L 98-107 CARBON DIOXIDE (test code=CO2) 25.0 mmol/L 21-32 ANION GAP (test code=GAP) 12.8 10-20 GLUCOSE (test code=GLU) 96 mg/dL 74-106 BLOOD UREA NITROGEN (test code=BUN) 30 mg/dL 7-18 GLOMERULAR FILTRATION RATE (test code=GFR) 38 mL/min >=60 Estimated GFR by using Modified MDRD formula.Chronic kidney disease is defined as either kidney damageor GFR <60 mL/min/1.73 m2 for >3 months. CREATININE (test code=CREAT) 1.40 mg/dL 0.55-1.02 Note change in reference range due to change in reagent. BUN/CREATININE RATIO (test code=BUN/CREA) 20.8 10-20 CALCIUM (test code=CA) 7.8 mg/dL 8.5-10.1 BASIC METABOLIC [id number] 05:46:00* Test Item Value Reference Range Comments SODIUM (test code=NA) 138 mmol/L 136-145 POTASSIUM (test code=K) 3.8 mmol/L 3.5-5.1 CHLORIDE (test code=CL) 104.0 mmol/L 98-107 CARBON DIOXIDE (test code=CO2) mmol/L 21-32 ANION GAP (test code=GAP) 10-20 GLUCOSE (test code=GLU) mg/dL 74-106 BLOOD UREA NITROGEN (test code=BUN) mg/dL 7-18 GLOMERULAR FILTRATION RATE (test code=GFR) mL/min >=60 CREATININE (test code=CREAT) mg/dL 0.55-1.02 BUN/CREATININE RATIO (test code=BUN/CREA) 10-20 CALCIUM (test code=CA) mg/dL 8.5-10.1 [id number] 04:40:00* Test Item Value Reference Range Comments AMMONIA (test code=AMM) 80 umol/L 11-32 [id number] 21:50:00* Test Item Value Reference Range Comments GLUBED (test code=GLUBED) 160 mg/dL 74-106 Performed by certified paper core machine operator at [facility] [id number] 16:26:00* Test Item Value Reference Range Comments GLUBED (test code=GLUBED) 148 mg/dL 74-106 Performed by certified paper core machine operator at [facility] [id number] 12:22:00* Test Item Value Reference Range Comments GLUBED (test code=GLUBED) 137 mg/dL 74-106 Performed by certified paper core machine operator at [facility] [id number] 12:21:00* Test Item Value Reference Range Comments GLUBED (test code=GLUBED) 117 mg/dL 74-106 Performed by certified paper core machine operator at [facility] BASIC METABOLIC [id number] 05:22:00* Test Item Value Reference Range Comments SODIUM (test code=NA) 140 mmol/L 136-145 POTASSIUM (test code=K) 3.7 mmol/L 3.5-5.1 CHLORIDE (test code=CL) 105.0 mmol/L 98-107 CARBON DIOXIDE (test code=CO2) 26.0 mmol/L 21-32 ANION GAP (test code=GAP) 12.7 10-20 GLUCOSE (test code=GLU) 102 mg/dL 74-106 BLOOD UREA NITROGEN (test code=BUN) 28 mg/dL 7-18 GLOMERULAR FILTRATION RATE (test code=GFR) 41 mL/min >=60 Estimated GFR by using Modified MDRD formula.Chronic kidney disease is defined as either kidney damageor GFR <60 mL/min/1.73 m2 for >3 months. CREATININE (test code=CREAT) 1.30 mg/dL 0.55-1.02 Note change in reference range due to change in reagent. BUN/CREATININE RATIO (test code=BUN/CREA) 21.7 10-20 CALCIUM (test code=CA) 8.0 mg/dL 8.5-10.1 [id number] 05:12:00* Test Item Value Reference Range Comments AMMONIA (test code=AMM) 62 umol/L 11 BASIC METABOLIC [id number] 05:11:00* Test Item Value Reference Range Comments SODIUM (test code=NA) 140 mmol/L 136-145 POTASSIUM (test code=K) 3.7 mmol/L 3.5-5.1 CHLORIDE (test code=CL) 105.0 mmol/L 98-107 CARBON DIOXIDE (test code=CO2) mmol/L -32 ANION GAP (test code=GAP) 10-20 GLUCOSE (test code=GLU) mg/dL 74-106 BLOOD UREA NITROGEN (test code=BUN) mg/dL 7-18 GLOMERULAR FILTRATION RATE (test code=GFR) mL/min >=60 CREATININE (test code=CREAT) mg/dL 0.55-1.02 BUN/CREATININE RATIO (test code=BUN/CREA) 10-20 CALCIUM (test code=CA) mg/dL 8.5-10.1 [id number] 21:49:00* Test Item Value Reference Range Comments GLUBED (test code=GLUBED) 92 mg/dL 74-106 Performed by certified paper core machine operator at [facility] [id number] 15:23:00* Test Item Value Reference Range Comments GLUBED (test code=GLUBED) 132 mg/dL 74-106 Performed by certified paper core machine operator at [facility] [id number] 11:18:00* Test Item Value Reference Range Comments GLUBED (test code=GLUBED) 187 mg/dL 74-106 Performed by certified paper core machine operator at [facility] - US ABDOMEN [id number] 07:37:00 Name: ALEX STANTON [facility] : 1950 Age/S: 67 / F [place] Unit #: [id number] Loc: [place] [address] Phys: Nicole Aguiar Acct: [id number] Dis Date: Status: ADM IN PHONE #: [phone] Exam Date: 04/20/2018 0019 FAX #: [phone] Reason: us abd screen for ascites EXAMS: CPT CODE: [id number] US ABDOMEN LTD [id number] EXAM: Ultrasound abdomen, limited; INFORMATION: HISTORY of cirrhosis; screening for ascites; FINDINGS: The liver shows a nodular surface and coarse echotexture, consistent with cirrhosis; no focal lesions. Status post cholecystectomy; no biliary dilatation. Spleen and pancreas are unremarkable; The right kidney is of normal size and shape; it measures 10.9 x 4.8 x 5.5 cm; no hydronephrosis, no stones and no parenchymal abnormalities. There is no evidence of ascites. IMPRESSION: 1. No ascites. 2. Cirrhotic liver. at 0737 Reported and signed by: Gonsalo Mayorga M.D. CC: Blayne Lopez Shama PA Technologist: SOREN WONG RDMS Trnscb Date/Time: 04/20/2018 (0737) [facility] Print D/T: S: 04/20/2018 (0740) Probe: PAGE 1 Signed Report CBC W/AUTO [id number] 06:56:00* Test Item Value Reference Range Comments WHITE BLOOD CELL (test code=WBC) 4.1 K/mm3 4.5-12.5 RED BLOOD CELL (test code=RBC) 2.95 mill/mm3 3.7-5.2 HEMOGLOBIN (test code=HGB) 9.0 gram/dL 11.5-15.5 HEMATOCRIT (test code=HCT) 28.6 % 36.0-46.0 MEAN CELL VOLUME (test code=MCV) 96.9 fL 80-98 MEAN CELL HGB (test code=MCH) 30.5 picogram 27.0-33.0 MEAN CELL HGB CONCETRATION (test code=MCHC) 31.5 gram/dL 33.0-36.0 RED CELL DISTRIBUTION WIDTH (test code=RDW) 19.7 % 11.6-16.2 RED CELL DISTRIBUTION WIDTH SD (test code=RDW-SD) 69.7 fL 37.0-51.0 PLATELET COUNT (test code=PLT) 82 K/mm3 150-450 MEAN PLATELET VOLUME (test code=MPV) 11.5 fL 6.7-11.0 NEUTROPHIL % (test code=NT%) 60.2 % 39.0-69.0 IMMATURE GRANULOCYTE % (test code=IG%) 0.2 % 0.0-5.0 LYMPHOCYTE % (test code=LY%) 23.8 % 25.0-55.0 MONOCYTE % (test code=MO%) 12.9 % 0.0-10.0 EOSINOPHIL % (test code=EO%) 2.2 % 0.0-5.0 BASOPHIL % (test code=BA%) 0.7 % 0.0-1.0 NUCLEATED RBC % (test code=NRBC%) 0.0 % 0-0 NEUTROPHIL # (test code=NT#) 2.48 K/mm3 1.8-7.7 IMMATURE GRANULOCYTE # (test code=IG#) 0.01 x10 3/uL 0-0.03 LYMPHOCYTE # (test code=LY#) 0.98 K/mm3 1.0-5.0 MONOCYTE # (test code=MO#) 0.53 K/mm3 0-0.8 EOSINOPHIL # (test code=EO#) 0.09 K/mm3 0.0-0.5 BASOPHIL # (test code=BA#) 0.03 K/mm3 0.0-0.2 NUCLEATED RBC # (test code=NRBC#) 0.00 K/mm3 0.0-0.1 MANUAL DIFF REQUIRED (test code=MDIFF) NO, ONLY SCAN NEEDED DIFFERENTIAL [id number] 06:56:00* Test Item Value Reference Range Comments STAIN ACCEPTABILITY (test code=STN ACCEPTABLE) STAIN ACCEPTABLE PLATELET ESTIMATE (test code=PLTEST) DECREASED PLATELET MORPHOLOGY (test code=PLTMORPH) NORMAL BASIC METABOLIC [id number] 06:02:00* Test Item Value Reference Range Comments SODIUM (test code=NA) 142 mmol/L 136-145 POTASSIUM (test code=K) 3.6 mmol/L 3.5-5.1 CHLORIDE (test code=CL) 106.0 mmol/L 98-107 CARBON DIOXIDE (test code=CO2) 28.0 mmol/L 21-32 ANION GAP (test code=GAP) 11.6 10-20 GLUCOSE (test code=GLU) 137 mg/dL 74-106 BLOOD UREA NITROGEN (test code=BUN) 28 mg/dL 7-18 GLOMERULAR FILTRATION RATE (test code=GFR) 38 mL/min >=60 Estimated GFR by using Modified MDRD formula.Chronic kidney disease is defined as either kidney damageor GFR <60 mL/min/1.73 m2 for >3 months. CREATININE (test code=CREAT) 1.40 mg/dL 0.55-1.02 Note change in reference range due to change in reagent. BUN/CREATININE RATIO (test code=BUN/CREA) 20.1 10-20 CALCIUM (test code=CA) 7.9 mg/dL 8.5-10.1 BASIC METABOLIC [id number] 05:58:00* Test Item Value Reference Range Comments SODIUM (test code=NA) 142 mmol/L 136-145 POTASSIUM (test code=K) 3.6 mmol/L 3.5-5.1 CHLORIDE (test code=CL) 106.0 mmol/L 98-107 CARBON DIOXIDE (test code=CO2) mmol/L 21-32 ANION GAP (test code=GAP) 10-20 GLUCOSE (test code=GLU) mg/dL 74-106 BLOOD UREA NITROGEN (test code=BUN) mg/dL 7-18 GLOMERULAR FILTRATION RATE (test code=GFR) mL/min >=60 CREATININE (test code=CREAT) mg/dL 0.55-1.02 BUN/CREATININE RATIO (test code=BUN/CREA) 10-20 CALCIUM (test code=CA) mg/dL 8.5-10.1 [id number] 05:45:00* Test Item Value Reference Range Comments GLUBED (test code=GLUBED) 114 mg/dL 74-106 Performed by certified paper core machine operator at [facility] CBC W/AUTO [id number] 05:36:00* Test Item Value Reference Range Comments WHITE BLOOD CELL (test code=WBC) 4.1 K/mm3 4.5-12.5 RED BLOOD CELL (test code=RBC) 2.95 mill/mm3 3.7-5.2 HEMOGLOBIN (test code=HGB) 9.0 gram/dL 11.5-15.5 HEMATOCRIT (test code=HCT) 28.6 % 36.0-46.0 MEAN CELL VOLUME (test code=MCV) 96.9 fL 80-98 MEAN CELL HGB (test code=MCH) 30.5 picogram 27.0-33.0 MEAN CELL HGB CONCETRATION (test code=MCHC) 31.5 gram/dL 33.0-36.0 RED CELL DISTRIBUTION WIDTH (test code=RDW) 19.7 % 11.6-16.2 RED CELL DISTRIBUTION WIDTH SD (test code=RDW-SD) 69.7 fL 37.0-51.0 PLATELET COUNT (test code=PLT) 82 K/mm3 150-450 MEAN PLATELET VOLUME (test code=MPV) 11.5 fL 6.7-11.0 NEUTROPHIL % (test code=NT%) 60.2 % 39.0-69.0 IMMATURE GRANULOCYTE % (test code=IG%) 0.2 % 0.0-5.0 LYMPHOCYTE % (test code=LY%) 23.8 % 25.0-55.0 MONOCYTE % (test code=MO%) 12.9 % 0.0-10.0 EOSINOPHIL % (test code=EO%) 2.2 % 0.0-5.0 BASOPHIL % (test code=BA%) 0.7 % 0.0-1.0 NUCLEATED RBC % (test code=NRBC%) 0.0 % 0-0 NEUTROPHIL # (test code=NT#) 2.48 K/mm3 1.8-7.7 IMMATURE GRANULOCYTE # (test code=IG#) 0.01 x10 3/uL 0-0.03 LYMPHOCYTE # (test code=LY#) 0.98 K/mm3 1.0-5.0 MONOCYTE # (test code=MO#) 0.53 K/mm3 0-0.8 EOSINOPHIL # (test code=EO#) 0.09 K/mm3 0.0-0.5 BASOPHIL # (test code=BA#) 0.03 K/mm3 0.0-0.2 NUCLEATED RBC # (test code=NRBC#) 0.00 K/mm3 0.0-0.1 MANUAL DIFF REQUIRED (test code=MDIFF) NO, ONLY SCAN NEEDED DIFFERENTIAL [id number] 05:36:00* Test Item Value Reference Range Comments STAIN ACCEPTABILITY (test code=STN ACCEPTABLE) CABOT RINGS (test code=CAB) MORPHOLOGY COMMENT (test code=MOC) PLATELET ESTIMATE (test code=PLTEST) PLATELET MORPHOLOGY (test code=PLTMORPH) CBC W/AUTO [id number] 05:36:00* Test Item Value Reference Range Comments WHITE BLOOD CELL (test code=WBC) 4.1 K/mm3 4.5-12.5 RED BLOOD CELL (test code=RBC) 2.95 mill/mm3 3.7-5.2 HEMOGLOBIN (test code=HGB) 9.0 gram/dL 11.5-15.5 HEMATOCRIT (test code=HCT) 28.6 % 36.0-46.0 MEAN CELL VOLUME (test code=MCV) 96.9 fL 80-98 MEAN CELL HGB (test code=MCH) 30.5 picogram 27.0-33.0 MEAN CELL HGB CONCETRATION (test code=MCHC) 31.5 gram/dL 33.0-36.0 RED CELL DISTRIBUTION WIDTH (test code=RDW) 19.7 % 11.6-16.2 RED CELL DISTRIBUTION WIDTH SD (test code=RDW-SD) 69.7 fL 37.0-51.0 PLATELET COUNT (test code=PLT) 82 K/mm3 150-450 MEAN PLATELET VOLUME (test code=MPV) 11.5 fL 6.7-11.0 NEUTROPHIL % (test code=NT%) 60.2 % 39.0-69.0 IMMATURE GRANULOCYTE % (test code=IG%) 0.2 % 0.0-5.0 LYMPHOCYTE % (test code=LY%) 23.8 % 25.0-55.0 MONOCYTE % (test code=MO%) 12.9 % 0.0-10.0 EOSINOPHIL % (test code=EO%) 2.2 % 0.0-5.0 BASOPHIL % (test code=BA%) 0.7 % 0.0-1.0 NUCLEATED RBC % (test code=NRBC%) 0.0 % 0-0 NEUTROPHIL # (test code=NT#) 2.48 K/mm3 1.8-7.7 IMMATURE GRANULOCYTE # (test code=IG#) 0.01 x10 3/uL 0-0.03 LYMPHOCYTE # (test code=LY#) 0.98 K/mm3 1.0-5.0 MONOCYTE # (test code=MO#) 0.53 K/mm3 0-0.8 EOSINOPHIL # (test code=EO#) 0.09 K/mm3 0.0-0.5 BASOPHIL # (test code=BA#) 0.03 K/mm3 0.0-0.2 NUCLEATED RBC # (test code=NRBC#) 0.00 K/mm3 0.0-0.1 MANUAL DIFF REQUIRED (test code=MDIFF) NO, ONLY SCAN NEEDED DIFFERENTIAL [id number] 05:36:00* Test Item Value Reference Range Comments STAIN ACCEPTABILITY (test code=STN ACCEPTABLE) CABOT RINGS (test code=CAB) MORPHOLOGY COMMENT (test code=MOC) PLATELET ESTIMATE (test code=PLTEST) PLATELET MORPHOLOGY (test code=PLTMORPH) CBC W/AUTO [id number] 05:36:00* Test Item Value Reference Range Comments WHITE BLOOD CELL (test code=WBC) 4.1 K/mm3 4.5-12.5 RED BLOOD CELL (test code=RBC) 2.95 mill/mm3 3.7-5.2 HEMOGLOBIN (test code=HGB) 9.0 gram/dL 11.5-15.5 HEMATOCRIT (test code=HCT) 28.6 % 36.0-46.0 MEAN CELL VOLUME (test code=MCV) 96.9 fL 80-98 MEAN CELL HGB (test code=MCH) 30.5 picogram 27.0-33.0 MEAN CELL HGB CONCETRATION (test code=MCHC) 31.5 gram/dL 33.0-36.0 RED CELL DISTRIBUTION WIDTH (test code=RDW) 19.7 % 11.6-16.2 RED CELL DISTRIBUTION WIDTH SD (test code=RDW-SD) 69.7 fL 37.0-51.0 PLATELET COUNT (test code=PLT) 82 K/mm3 150-450 MEAN PLATELET VOLUME (test code=MPV) 11.5 fL 6.7-11.0 NEUTROPHIL % (test code=NT%) 60.2 % 39.0-69.0 IMMATURE GRANULOCYTE % (test code=IG%) 0.2 % 0.0-5.0 LYMPHOCYTE % (test code=LY%) 23.8 % 25.0-55.0 MONOCYTE % (test code=MO%) 12.9 % 0.0-10.0 EOSINOPHIL % (test code=EO%) 2.2 % 0.0-5.0 BASOPHIL % (test code=BA%) 0.7 % 0.0-1.0 NUCLEATED RBC % (test code=NRBC%) 0.0 % 0-0 NEUTROPHIL # (test code=NT#) 2.48 K/mm3 1.8-7.7 IMMATURE GRANULOCYTE # (test code=IG#) 0.01 x10 3/uL 0-0.03 LYMPHOCYTE # (test code=LY#) 0.98 K/mm3 1.0-5.0 MONOCYTE # (test code=MO#) 0.53 K/mm3 0-0.8 EOSINOPHIL # (test code=EO#) 0.09 K/mm3 0.0-0.5 BASOPHIL # (test code=BA#) 0.03 K/mm3 0.0-0.2 NUCLEATED RBC # (test code=NRBC#) 0.00 K/mm3 0.0-0.1 MANUAL DIFF REQUIRED (test code=MDIFF) NO, ONLY SCAN NEEDED DIFFERENTIAL [id number] 05:36:00* Test Item Value Reference Range Comments STAIN ACCEPTABILITY (test code=STN ACCEPTABLE) MORPHOLOGY COMMENT (test code=MOC) PLATELET ESTIMATE (test code=PLTEST) PLATELET MORPHOLOGY (test code=PLTMORPH) CBC W/AUTO [id number] 05:36:00* Test Item Value Reference Range Comments WHITE BLOOD CELL (test code=WBC) 4.1 K/mm3 4.5-12.5 RED BLOOD CELL (test code=RBC) 2.95 mill/mm3 3.7-5.2 HEMOGLOBIN (test code=HGB) 9.0 gram/dL 11.5-15.5 HEMATOCRIT (test code=HCT) 28.6 % 36.0-46.0 MEAN CELL VOLUME (test code=MCV) 96.9 fL 80-98 MEAN CELL HGB (test code=MCH) 30.5 picogram 27.0-33.0 MEAN CELL HGB CONCETRATION (test code=MCHC) 31.5 gram/dL 33.0-36.0 RED CELL DISTRIBUTION WIDTH (test code=RDW) 19.7 % 11.6-16.2 RED CELL DISTRIBUTION WIDTH SD (test code=RDW-SD) 69.7 fL 37.0-51.0 PLATELET COUNT (test code=PLT) 82 K/mm3 150-450 MEAN PLATELET VOLUME (test code=MPV) 11.5 fL 6.7-11.0 NEUTROPHIL % (test code=NT%) 60.2 % 39.0-69.0 IMMATURE GRANULOCYTE % (test code=IG%) 0.2 % 0.0-5.0 LYMPHOCYTE % (test code=LY%) 23.8 % 25.0-55.0 MONOCYTE % (test code=MO%) 12.9 % 0.0-10.0 EOSINOPHIL % (test code=EO%) 2.2 % 0.0-5.0 BASOPHIL % (test code=BA%) 0.7 % 0.0-1.0 NUCLEATED RBC % (test code=NRBC%) 0.0 % 0-0 NEUTROPHIL # (test code=NT#) 2.48 K/mm3 1.8-7.7 IMMATURE GRANULOCYTE # (test code=IG#) 0.01 x10 3/uL 0-0.03 LYMPHOCYTE # (test code=LY#) 0.98 K/mm3 1.0-5.0 MONOCYTE # (test code=MO#) 0.53 K/mm3 0-0.8 EOSINOPHIL # (test code=EO#) 0.09 K/mm3 0.0-0.5 BASOPHIL # (test code=BA#) 0.03 K/mm3 0.0-0.2 NUCLEATED RBC # (test code=NRBC#) 0.00 K/mm3 0.0-0.1 MANUAL DIFF REQUIRED (test code=MDIFF) NO, ONLY SCAN NEEDED DIFFERENTIAL [id number] 05:36:00* Test Item Value Reference Range Comments STAIN ACCEPTABILITY (test code=STN ACCEPTABLE) CABOT RINGS (test code=CAB) MORPHOLOGY COMMENT (test code=MOC) PLATELET ESTIMATE (test code=PLTEST) PLATELET MORPHOLOGY (test code=PLTMORPH) [id number] 05:16:00* Test Item Value Reference Range Comments AMMONIA (test code=AMM) 91 umol/L 11-32 ACUTE HEPATITIS [id number] 04:11:00* Test Item Value Reference Range Comments AB HEPATITIS A IGM (test code=HAVMAB) Negative Negative AG HEPAT B SURF (test code=HBSAG) Negative Negative HEPATITIS B CORE ANTIBODY,IGM (test code=HBCMAB) Negative Negative AB HEPATITIS C (test code=HCVAB) <0.1 0.0-0.9 INFCE Result Units: s/co ratio Negative: < 0.8 Indeterminate: 0.8 - 0.9 Positive: > 0.9 The CDC recommends that a positive HCV antibody result be followed up with a HCV Nucleic Acid Amplification test (323930).Performed At: [facility] [address] [id number] Lawson Walker MD Ph:[phone] [id number] 20:46:00* Test Item Value Reference Range Comments GLUBED (test code=GLUBED) 121 mg/dL 74-106 Performed by certified paper core machine operator at [facility] BASIC METABOLIC [id number] 18:53:00* Test Item Value Reference Range Comments SODIUM (test code=NA) 141 mmol/L 136-145 POTASSIUM (test code=K) 5.2 mmol/L 3.5-5.1 CHLORIDE (test code=CL) 105.0 mmol/L 98-107 CARBON DIOXIDE (test code=CO2) 24.0 mmol/L 21-32 ANION GAP (test code=GAP) 17.2 10-20 GLUCOSE (test code=GLU) 144 mg/dL 74-106 BLOOD UREA NITROGEN (test code=BUN) 28 mg/dL 7-18 GLOMERULAR FILTRATION RATE (test code=GFR) 35 mL/min >=60 Estimated GFR by using Modified MDRD formula.Chronic kidney disease is defined as either kidney damageor GFR <60 mL/min/1.73 m2 for >3 months. CREATININE (test code=CREAT) 1.50 mg/dL 0.55-1.02 Note change in reference range due to change in reagent. BUN/CREATININE RATIO (test code=BUN/CREA) 18.9 10-20 CALCIUM (test code=CA) 7.9 mg/dL 8.5-10.1 [id number] 16:18:00* Test Item Value Reference Range Comments GLUBED (test code=GLUBED) 102 mg/dL 74-106 Performed by certified paper core machine operator at [facility] [id number] 12:14:00* Test Item Value Reference Range Comments GLUBED (test code=GLUBED) 154 mg/dL 74-106 Performed by certified paper core machine operator at [facility] CBC W/AUTO [id number] 10:20:00* Test Item Value Reference Range Comments WHITE BLOOD CELL (test code=WBC) 3.1 K/mm3 4.5-12.5 RED BLOOD CELL (test code=RBC) 2.93 mill/mm3 3.7-5.2 HEMOGLOBIN (test code=HGB) 8.7 gram/dL 11.5-15.5 HEMATOCRIT (test code=HCT) 28.8 % 36.0-46.0 MEAN CELL VOLUME (test code=MCV) 98.3 fL 80-98 MEAN CELL HGB (test code=MCH) 29.7 picogram 27.0-33.0 MEAN CELL HGB CONCETRATION (test code=MCHC) 30.2 gram/dL 33.0-36.0 RED CELL DISTRIBUTION WIDTH (test code=RDW) 20.2 % 11.6-16.2 RED CELL DISTRIBUTION WIDTH SD (test code=RDW-SD) 72.4 fL 37.0-51.0 PLATELET COUNT (test code=PLT) 75 K/mm3 150-450 MEAN PLATELET VOLUME (test code=MPV) 11.2 fL 6.7-11.0 NEUTROPHIL % (test code=NT%) 56.4 % 39.0-69.0 IMMATURE GRANULOCYTE % (test code=IG%) 0.3 % 0.0-5.0 LYMPHOCYTE % (test code=LY%) 29.0 % 25.0-55.0 MONOCYTE % (test code=MO%) 12.4 % 0.0-10.0 EOSINOPHIL % (test code=EO%) 1.3 % 0.0-5.0 BASOPHIL % (test code=BA%) 0.6 % 0.0-1.0 NUCLEATED RBC % (test code=NRBC%) 0.0 % 0-0 NEUTROPHIL # (test code=NT#) 1.77 K/mm3 1.8-7.7 IMMATURE GRANULOCYTE # (test code=IG#) 0.01 x10 3/uL 0-0.03 LYMPHOCYTE # (test code=LY#) 0.91 K/mm3 1.0-5.0 MONOCYTE # (test code=MO#) 0.39 K/mm3 0-0.8 EOSINOPHIL # (test code=EO#) 0.04 K/mm3 0.0-0.5 BASOPHIL # (test code=BA#) 0.02 K/mm3 0.0-0.2 NUCLEATED RBC # (test code=NRBC#) 0.00 K/mm3 0.0-0.1 MANUAL DIFF REQUIRED (test code=MDIFF) NO, ONLY SCAN NEEDED DIFFERENTIAL [id number] 10:20:00* Test Item Value Reference Range Comments STAIN ACCEPTABILITY (test code=STN ACCEPTABLE) STAIN ACCEPTABLE HYPOCHROMIA (test code=HYPO) 1+ ANISOCYTOSIS (test code=ANISO) 1+ MACROCYTOSIS (test code=MACR) 1+ PLATELET ESTIMATE (test code=PLTEST) DECREASED PLATELET MORPHOLOGY (test code=PLTMORPH) NORMAL [id number] 07:50:00* Test Item Value Reference Range Comments GLUBED (test code=GLUBED) 104 mg/dL 74-106 Performed by certified paper core machine operator at [facility] CBC W/AUTO [id number] 07:21:00* Test Item Value Reference Range Comments WHITE BLOOD CELL (test code=WBC) 3.1 K/mm3 4.5-12.5 RED BLOOD CELL (test code=RBC) 2.93 mill/mm3 3.7-5.2 HEMOGLOBIN (test code=HGB) 8.7 gram/dL 11.5-15.5 HEMATOCRIT (test code=HCT) 28.8 % 36.0-46.0 MEAN CELL VOLUME (test code=MCV) 98.3 fL 80-98 MEAN CELL HGB (test code=MCH) 29.7 picogram 27.0-33.0 MEAN CELL HGB CONCETRATION (test code=MCHC) 30.2 gram/dL 33.0-36.0 RED CELL DISTRIBUTION WIDTH (test code=RDW) 20.2 % 11.6-16.2 RED CELL DISTRIBUTION WIDTH SD (test code=RDW-SD) 72.4 fL 37.0-51.0 PLATELET COUNT (test code=PLT) 75 K/mm3 150-450 MEAN PLATELET VOLUME (test code=MPV) 11.2 fL 6.7-11.0 NEUTROPHIL % (test code=NT%) 56.4 % 39.0-69.0 IMMATURE GRANULOCYTE % (test code=IG%) 0.3 % 0.0-5.0 LYMPHOCYTE % (test code=LY%) 29.0 % 25.0-55.0 MONOCYTE % (test code=MO%) 12.4 % 0.0-10.0 EOSINOPHIL % (test code=EO%) 1.3 % 0.0-5.0 BASOPHIL % (test code=BA%) 0.6 % 0.0-1.0 NUCLEATED RBC % (test code=NRBC%) 0.0 % 0-0 NEUTROPHIL # (test code=NT#) 1.77 K/mm3 1.8-7.7 IMMATURE GRANULOCYTE # (test code=IG#) 0.01 x10 3/uL 0-0.03 LYMPHOCYTE # (test code=LY#) 0.91 K/mm3 1.0-5.0 MONOCYTE # (test code=MO#) 0.39 K/mm3 0-0.8 EOSINOPHIL # (test code=EO#) 0.04 K/mm3 0.0-0.5 BASOPHIL # (test code=BA#) 0.02 K/mm3 0.0-0.2 NUCLEATED RBC # (test code=NRBC#) 0.00 K/mm3 0.0-0.1 MANUAL DIFF REQUIRED (test code=MDIFF) NO, ONLY SCAN NEEDED DIFFERENTIAL [id number] 07:21:00* Test Item Value Reference Range Comments STAIN ACCEPTABILITY (test code=STN ACCEPTABLE) CABOT RINGS (test code=CAB) MORPHOLOGY COMMENT (test code=MOC) PLATELET ESTIMATE (test code=PLTEST) PLATELET MORPHOLOGY (test code=PLTMORPH) CBC W/AUTO [id number] 07:21:00* Test Item Value Reference Range Comments WHITE BLOOD CELL (test code=WBC) 3.1 K/mm3 4.5-12.5 RED BLOOD CELL (test code=RBC) 2.93 mill/mm3 3.7-5.2 HEMOGLOBIN (test code=HGB) 8.7 gram/dL 11.5-15.5 HEMATOCRIT (test code=HCT) 28.8 % 36.0-46.0 MEAN CELL VOLUME (test code=MCV) 98.3 fL 80-98 MEAN CELL HGB (test code=MCH) 29.7 picogram 27.0-33.0 MEAN CELL HGB CONCETRATION (test code=MCHC) 30.2 gram/dL 33.0-36.0 RED CELL DISTRIBUTION WIDTH (test code=RDW) 20.2 % 11.6-16.2 RED CELL DISTRIBUTION WIDTH SD (test code=RDW-SD) 72.4 fL 37.0-51.0 PLATELET COUNT (test code=PLT) 75 K/mm3 150-450 MEAN PLATELET VOLUME (test code=MPV) 11.2 fL 6.7-11.0 NEUTROPHIL % (test code=NT%) 56.4 % 39.0-69.0 IMMATURE GRANULOCYTE % (test code=IG%) 0.3 % 0.0-5.0 LYMPHOCYTE % (test code=LY%) 29.0 % 25.0-55.0 MONOCYTE % (test code=MO%) 12.4 % 0.0-10.0 EOSINOPHIL % (test code=EO%) 1.3 % 0.0-5.0 BASOPHIL % (test code=BA%) 0.6 % 0.0-1.0 NUCLEATED RBC % (test code=NRBC%) 0.0 % 0-0 NEUTROPHIL # (test code=NT#) 1.77 K/mm3 1.8-7.7 IMMATURE GRANULOCYTE # (test code=IG#) 0.01 x10 3/uL 0-0.03 LYMPHOCYTE # (test code=LY#) 0.91 K/mm3 1.0-5.0 MONOCYTE # (test code=MO#) 0.39 K/mm3 0-0.8 EOSINOPHIL # (test code=EO#) 0.04 K/mm3 0.0-0.5 BASOPHIL # (test code=BA#) 0.02 K/mm3 0.0-0.2 NUCLEATED RBC # (test code=NRBC#) 0.00 K/mm3 0.0-0.1 MANUAL DIFF REQUIRED (test code=MDIFF) NO, ONLY SCAN NEEDED DIFFERENTIAL [id number] 07:21:00* Test Item Value Reference Range Comments STAIN ACCEPTABILITY (test code=STN ACCEPTABLE) CABOT RINGS (test code=CAB) MORPHOLOGY COMMENT (test code=MOC) PLATELET ESTIMATE (test code=PLTEST) PLATELET MORPHOLOGY (test code=PLTMORPH) CBC W/AUTO [id number] 07:21:00* Test Item Value Reference Range Comments WHITE BLOOD CELL (test code=WBC) 3.1 K/mm3 4.5-12.5 RED BLOOD CELL (test code=RBC) 2.93 mill/mm3 3.7-5.2 HEMOGLOBIN (test code=HGB) 8.7 gram/dL 11.5-15.5 HEMATOCRIT (test code=HCT) 28.8 % 36.0-46.0 MEAN CELL VOLUME (test code=MCV) 98.3 fL 80-98 MEAN CELL HGB (test code=MCH) 29.7 picogram 27.0-33.0 MEAN CELL HGB CONCETRATION (test code=MCHC) 30.2 gram/dL 33.0-36.0 RED CELL DISTRIBUTION WIDTH (test code=RDW) 20.2 % 11.6-16.2 RED CELL DISTRIBUTION WIDTH SD (test code=RDW-SD) 72.4 fL 37.0-51.0 PLATELET COUNT (test code=PLT) 75 K/mm3 150-450 MEAN PLATELET VOLUME (test code=MPV) 11.2 fL 6.7-11.0 NEUTROPHIL % (test code=NT%) 56.4 % 39.0-69.0 IMMATURE GRANULOCYTE % (test code=IG%) 0.3 % 0.0-5.0 LYMPHOCYTE % (test code=LY%) 29.0 % 25.0-55.0 MONOCYTE % (test code=MO%) 12.4 % 0.0-10.0 EOSINOPHIL % (test code=EO%) 1.3 % 0.0-5.0 BASOPHIL % (test code=BA%) 0.6 % 0.0-1.0 NUCLEATED RBC % (test code=NRBC%) 0.0 % 0-0 NEUTROPHIL # (test code=NT#) 1.77 K/mm3 1.8-7.7 IMMATURE GRANULOCYTE # (test code=IG#) 0.01 x10 3/uL 0-0.03 LYMPHOCYTE # (test code=LY#) 0.91 K/mm3 1.0-5.0 MONOCYTE # (test code=MO#) 0.39 K/mm3 0-0.8 EOSINOPHIL # (test code=EO#) 0.04 K/mm3 0.0-0.5 BASOPHIL # (test code=BA#) 0.02 K/mm3 0.0-0.2 NUCLEATED RBC # (test code=NRBC#) 0.00 K/mm3 0.0-0.1 MANUAL DIFF REQUIRED (test code=MDIFF) NO, ONLY SCAN NEEDED DIFFERENTIAL [id number] 07:21:00* Test Item Value Reference Range Comments STAIN ACCEPTABILITY (test code=STN ACCEPTABLE) MORPHOLOGY COMMENT (test code=MOC) PLATELET ESTIMATE (test code=PLTEST) PLATELET MORPHOLOGY (test code=PLTMORPH) CBC W/AUTO [id number] 07:21:00* Test Item Value Reference Range Comments WHITE BLOOD CELL (test code=WBC) 3.1 K/mm3 4.5-12.5 RED BLOOD CELL (test code=RBC) 2.93 mill/mm3 3.7-5.2 HEMOGLOBIN (test code=HGB) 8.7 gram/dL 11.5-15.5 HEMATOCRIT (test code=HCT) 28.8 % 36.0-46.0 MEAN CELL VOLUME (test code=MCV) 98.3 fL 80-98 MEAN CELL HGB (test code=MCH) 29.7 picogram 27.0-33.0 MEAN CELL HGB CONCETRATION (test code=MCHC) 30.2 gram/dL 33.0-36.0 RED CELL DISTRIBUTION WIDTH (test code=RDW) 20.2 % 11.6-16.2 RED CELL DISTRIBUTION WIDTH SD (test code=RDW-SD) 72.4 fL 37.0-51.0 PLATELET COUNT (test code=PLT) 75 K/mm3 150-450 MEAN PLATELET VOLUME (test code=MPV) 11.2 fL 6.7-11.0 NEUTROPHIL % (test code=NT%) 56.4 % 39.0-69.0 IMMATURE GRANULOCYTE % (test code=IG%) 0.3 % 0.0-5.0 LYMPHOCYTE % (test code=LY%) 29.0 % 25.0-55.0 MONOCYTE % (test code=MO%) 12.4 % 0.0-10.0 EOSINOPHIL % (test code=EO%) 1.3 % 0.0-5.0 BASOPHIL % (test code=BA%) 0.6 % 0.0-1.0 NUCLEATED RBC % (test code=NRBC%) 0.0 % 0-0 NEUTROPHIL # (test code=NT#) 1.77 K/mm3 1.8-7.7 IMMATURE GRANULOCYTE # (test code=IG#) 0.01 x10 3/uL 0-0.03 LYMPHOCYTE # (test code=LY#) 0.91 K/mm3 1.0-5.0 MONOCYTE # (test code=MO#) 0.39 K/mm3 0-0.8 EOSINOPHIL # (test code=EO#) 0.04 K/mm3 0.0-0.5 BASOPHIL # (test code=BA#) 0.02 K/mm3 0.0-0.2 NUCLEATED RBC # (test code=NRBC#) 0.00 K/mm3 0.0-0.1 MANUAL DIFF REQUIRED (test code=MDIFF) NO, ONLY SCAN NEEDED DIFFERENTIAL [id number] 07:21:00* Test Item Value Reference Range Comments STAIN ACCEPTABILITY (test code=STN ACCEPTABLE) CABOT RINGS (test code=CAB) MORPHOLOGY COMMENT (test code=MOC) PLATELET ESTIMATE (test code=PLTEST) PLATELET MORPHOLOGY (test code=PLTMORPH) BASIC METABOLIC [id number] 07:19:00* Test Item Value Reference Range Comments SODIUM (test code=NA) 144 mmol/L 136-145 RESULT VERIFIED BY REPEAT ANALYSIS POTASSIUM (test code=K) 3.9 mmol/L 3.5-5.1 CHLORIDE (test code=CL) 106.0 mmol/L 98-107 CARBON DIOXIDE (test code=CO2) 30.0 mmol/L 21-32 ANION GAP (test code=GAP) 11.9 10-20 GLUCOSE (test code=GLU) 97 mg/dL 74-106 BLOOD UREA NITROGEN (test code=BUN) 29 mg/dL 7-18 GLOMERULAR FILTRATION RATE (test code=GFR) 50 mL/min >=60 Estimated GFR by using Modified MDRD formula.Chronic kidney disease is defined as either kidney damageor GFR <60 mL/min/1.73 m2 for >3 months. CREATININE (test code=CREAT) 1.10 mg/dL 0.55-1.02 Note change in reference range due to change in reagent. BUN/CREATININE RATIO (test code=BUN/CREA) 25.9 10-20 CALCIUM (test code=CA) 8.0 mg/dL 8.5-10.1 [id number] 06:45:00* Test Item Value Reference Range Comments AMMONIA (test code=AMM) 103 umol/L 11-32 ARTERIAL BLOOD [id number] 18:47:00* Test Item Value Reference Range Comments ARTERIAL BLOOD GAS PH (test code=PHA) 7.57 7.35-7.45 Results called to and read back by Violette MCGOVERN 18:46 04/18/2018; by SOCRATES ARTERIAL BLOOD GAS PCO2 (test code=PCO2A) 32.6 mm Hg 35-45 ARTERIAL BLOOD GAS PO2 (test code=PO2A) 73.8 mmHg 80-100 BICARBONATE TOTAL HCO3 (test code=HCO3) 28.9 mmol/L 23.0-27.0 BASE EXCESS (test code=JIMMY) 6.8 mmol/L -3.0-5.0 Results called to and read back by Violette MCGOVERN 18:04/18/2018; by SOCRATES ABRuth O2 SATURATION (test code=SATA) 95.1 % 90.0-98.0 ABG TYPE (test code=TYPEA) Arterial FIO2 (test code=FIO2A) 21.0 ABG SITE (test code=SITEA) Rt RADIAL ARTERY MODIFIED ALLENS (test code=MODALL) Yes CHECK PERFORMED HEMATOCRIT (test code=HCT/ABG) 32 % 35-47 TOTAL HGB (test code=THB) 10.8 gram/dL 11.5-15.5 HGB O2 SAT (test code=HBOSAT) 93.8 % 94.00-98.00 CARBOXYHEMOGLOBIN (test code=HOHGBT) 1.0 %totalHg 0.5-1.5 METHEMOGLOBIN (test code=METHGB) 0.4 % 0.0-1.50 O2 CONTENT (test code=O2CT) 14.3 % vol 18.0-22.0 [id number] 17:30:00* Test Item Value Reference Range Comments GLUBED (test code=GLUBED) 78 mg/dL 74-106 Performed by certified paper core machine operator at [facility] B-TYPE NATRIURETIC [id number] 09:37:00* Test Item Value Reference Range Comments B-TYPE NATRIURETIC PEPTIDE (test code=BNP) 8.63 pgram/mL 0-100 URINALYSIS [id number] 09:18:00* Test Item Value Reference Range Comments UA COLOR (test code=COLU) DARK YELLOW YELLOW UA APPEARANCE (test code=APPU) CLEAR CLEAR UA GLUCOSE DIPSTICK (test code=DGLUU) NEGATIVE mg/dL NEGATIVE UA BILIRUBIN DIPSTICK (test code=BILU) NEGATIVE mg/dL NEGATIVE UA KETONE DIPSTICK (test code=KETU) Negative mg/dL NEGATIVE UA SPECIFIC GRAVITY (test code=SGU) 1.014 1.001-1.035 UA BLOOD DIPSTICK (test code=VIJAY) 3+ (Large) NEGATIVE UA PH DIPSTICK (test code=RACHNA) 8.0 5.0-8.0 UA PROTEIN DIPSTICK (test code=PROU) 30 (1+) mg/dL NEGATIVE UA UROBILINIOGEN DIPSTICK (test code=URO) 1 mg/dL (1+) mg/dL 0.0-0.2 UA NITRITE DIPSTICK (test code=ROCKY) NEGATIVE NEGATIVE UA LEUKOCYTE ESTERASE W REFLEX (test code=LEUUR) NEGATIVE NEGATIVE UA WBC (test code=WBCU) >50 per HPF 0-5 IN SOME URINARY TRACT INFECTIONS THERE MAY NOT BE ENOUGHWBCs IN THE URINE TO TRIGGER AN AUTOMATIC (REFLEX) URINECULTURE. A SEPERATE ORDER FOR URINE CULTURE IS RECOMMENDEDIF THERE IS STRONG SUPPORT FOR A URINARY TRACT INFECTIONCLINICALLY. UA RBC (test code=RBCU) 10-15 per HPF 0-5 UA EPITHELIAL CELLS (test code=EPIU) FEW per HPF Few UA BACTERIA (test code=BACU) RARE per HPF NONE Urine Source? Clean CatchDRUGS OF ABUSE SCREEN [id number] 09:18:00* Test Item Value Reference Range Comments URN COCAINE (test code=COCAURN) NEGATIVE <300 ng/mL URN CANNABINOIDS (test code=CANNABURN) POSITIVE <50 ng/mL This test provides only a preliminary test result. A morespecific alternate chemical method must be used in order toobtain a confirmed analytical result. Gas chromatography/mass spectrometry (GC/MS) is thepreferred confirmatory method. Other chemical confirmationmethods are available. Clinical consideration and professional judgment should be applied to any drug of abusetest result, particularly when preliminary positive resultsare used.Unconfirmed screening results must not be used fornon-medical purposes (e.g., employment testing, legaltesting). URN AMPHETAMINE (test code=AMPHETURN) NEGATIVE <1000 ng/mL URN BARBITURATE (test code=BARBITURN) NEGATIVE <200 ng/mL URN BENZODIAZEPINE (test code=BENZOURN) NEGATIVE <200 ng/mL URN OPIATES (test code=OPIATURN) NEGATIVE <300 ng/mL URN PHENCYCLIDINE (PCP) (test code=PHENCURN) NEGATIVE <25 ng/mL URN METHADONE (test code=METHAURN) NEGATIVE <300 ng/mL Urine Source? Clean CatchURINALYSIS [id number] 09:12:00* Test Item Value Reference Range Comments UA COLOR (test code=COLU) DARK YELLOW YELLOW UA APPEARANCE (test code=APPU) CLEAR CLEAR UA GLUCOSE DIPSTICK (test code=DGLUU) NEGATIVE mg/dL NEGATIVE UA BILIRUBIN DIPSTICK (test code=BILU) NEGATIVE mg/dL NEGATIVE UA KETONE DIPSTICK (test code=KETU) Negative mg/dL NEGATIVE UA SPECIFIC GRAVITY (test code=SGU) 1.014 1.001-1.035 UA BLOOD DIPSTICK (test code=VIJAY) 3+ (Large) NEGATIVE UA PH DIPSTICK (test code=RACHNA) 8.0 5.0-8.0 UA PROTEIN DIPSTICK (test code=PROU) 30 (1+) mg/dL NEGATIVE UA UROBILINIOGEN DIPSTICK (test code=URO) 1 mg/dL (1+) mg/dL 0.0-0.2 UA NITRITE DIPSTICK (test code=ROCKY) NEGATIVE NEGATIVE UA LEUKOCYTE ESTERASE W REFLEX (test code=LEUUR) NEGATIVE NEGATIVE UA WBC (test code=WBCU) per HPF 0-5 Urine Source? Clean CatchDRUGS OF ABUSE SCREEN [id number] 09:12:00* Test Item Value Reference Range Comments URN COCAINE (test code=COCAURN) NEGATIVE <300 ng/mL URN CANNABINOIDS (test code=CANNABURN) POSITIVE <50 ng/mL This test provides only a preliminary test result. A morespecific alternate chemical method must be used in order toobtain a confirmed analytical result. Gas chromatography/mass spectrometry (GC/MS) is thepreferred confirmatory method. Other chemical confirmationmethods are available. Clinical consideration and professional judgment should be applied to any drug of abusetest result, particularly when preliminary positive resultsare used.Unconfirmed screening results must not be used fornon-medical purposes (e.g., employment testing, legaltesting). URN AMPHETAMINE (test code=AMPHETURN) NEGATIVE <1000 ng/mL URN BARBITURATE (test code=BARBITURN) NEGATIVE <200 ng/mL URN BENZODIAZEPINE (test code=BENZOURN) NEGATIVE <200 ng/mL URN OPIATES (test code=OPIATURN) NEGATIVE <300 ng/mL URN PHENCYCLIDINE (PCP) (test code=PHENCURN) NEGATIVE <25 ng/mL URN METHADONE (test code=METHAURN) NEGATIVE <300 ng/mL Urine Source? Clean CatchURINALYSIS [id number] 08:58:00* Test Item Value Reference Range Comments UA COLOR (test code=COLU) DARK YELLOW YELLOW UA APPEARANCE (test code=APPU) CLEAR CLEAR UA GLUCOSE DIPSTICK (test code=DGLUU) NEGATIVE mg/dL NEGATIVE UA BILIRUBIN DIPSTICK (test code=BILU) NEGATIVE mg/dL NEGATIVE UA KETONE DIPSTICK (test code=KETU) Negative mg/dL NEGATIVE UA SPECIFIC GRAVITY (test code=SGU) 1.014 1.001-1.035 UA BLOOD DIPSTICK (test code=VIJAY) 3+ (Large) NEGATIVE UA PH DIPSTICK (test code=RACHNA) 8.0 5.0-8.0 UA PROTEIN DIPSTICK (test code=PROU) 30 (1+) mg/dL NEGATIVE UA UROBILINIOGEN DIPSTICK (test code=URO) 1 mg/dL (1+) mg/dL 0.0-0.2 UA NITRITE DIPSTICK (test code=ROCKY) NEGATIVE NEGATIVE UA LEUKOCYTE ESTERASE W REFLEX (test code=LEUUR) NEGATIVE NEGATIVE UA WBC (test code=WBCU) per HPF 0-5 Urine Source? Clean CatchDRUGS OF ABUSE SCREEN [id number] 08:58:00* Test Item Value Reference Range Comments URN COCAINE (test code=COCAURN) <300 ng/mL URN CANNABINOIDS (test code=CANNABURN) <50 ng/mL URN AMPHETAMINE (test code=AMPHETURN) <1000 ng/mL URN BARBITURATE (test code=BARBITURN) <200 ng/mL URN BENZODIAZEPINE (test code=BENZOURN) <200 ng/mL URN OPIATES (test code=OPIATURN) <300 ng/mL URN PHENCYCLIDINE (PCP) (test code=PHENCURN) <25 ng/mL URN METHADONE (test code=METHAURN) <300 ng/mL Urine Source? Clean CatchBASIC METABOLIC [id number] 08:57:00* Test Item Value Reference Range Comments SODIUM (test code=NA) 139 mmol/L 136-145 POTASSIUM (test code=K) 5.7 mmol/L 3.5-5.1 CHLORIDE (test code=CL) 102.0 mmol/L 98-107 CARBON DIOXIDE (test code=CO2) 31.0 mmol/L 21-32 ANION GAP (test code=GAP) 11.7 10-20 GLUCOSE (test code=GLU) 194 mg/dL 74-106 BLOOD UREA NITROGEN (test code=BUN) 27 mg/dL 7-18 GLOMERULAR FILTRATION RATE (test code=GFR) 55 mL/min >=60 Estimated GFR by using Modified MDRD formula.Chronic kidney disease is defined as either kidney damageor GFR <60 mL/min/1.73 m2 for >3 months. CREATININE (test code=CREAT) 1.00 mg/dL 0.55-1.02 Note change in reference range due to change in reagent. BUN/CREATININE RATIO (test code=BUN/CREA) 26.5 10-20 CALCIUM (test code=CA) 7.5 mg/dL 8.5-10.1 HEPATIC FUNCTION [id number] 08:57:00* Test Item Value Reference Range Comments TOTAL PROTEIN (test code=PROT) 7.1 gram/dL 6.4-8.2 ALBUMIN (test code=ALB) 2.0 g/dL 3.4-5.0 GLOBULIN (test code=GLOB) 5.1 gram/dL 2.7-4.2 ALBUMIN/GLOBULIN RATIO (test code=A/G) 0.4 0.75-1.50 BILIRUBIN TOTAL (test code=BILT) 1.00 mg/dL 0.0-1.0 BILIRUBIN DIRECT (test code=BILD) 0.37 mg/dL 0.0-0.20 SGOT/AST (test code=AST) 62 IUnit/L 15-37 SGPT/ALT (test code=ALT) 28 IUnit/L 12-78 ALKALINE PHOSPHATASE TOTAL (test code=ALKP) 174 IUnit/L 45-117 Note change in reference range due to change in reagent. [id number] 08:57:00* Test Item Value Reference Range Comments TROPONIN-I (test code=TROPI) <0.015 ng/mL 0-0.045 [id number] 08:57:00* Test Item Value Reference Range Comments ACETAMINOPHEN (test code=ACET) < 10 mcg/mL 10-30 A RANGE OF 10-30 mcg/mL IS A THERAPEUTIC RANGE. TOXIC CONCENTRATIONS: >150 mcg/mL AT 4 HOURS AFTER INGESTION >=50 mcg/mL AT 12 HOURS AFTER INGESTION [id number] 08:57:00* Test Item Value Reference Range Comments SALICYLATE (test code=LUNA) < 1.7 mg/dL 2.8-20.0 [id number] 08:57:00* Test Item Value Reference Range Comments ALCOHOL (test code=ALC) < 3 mg/dL 0.0-3.0 INTERPRETIVE DATA NOTE: POSITIVE SCREENING RESULTS SHOULD BE CONSIDERED PRESUMPTIVE.WHEN COLLECTED FOR MEDICAL PURPOSES ONLY. SPECIMEN WILL NOTBE COLLECTED BY CHAIN OF CUSTODY.IF A CONFIRMATION OF POSITIVE RESULTS IS DESIRED, ACONFIRMATION TEST MUST BE REQUESTED BY THE PHYSICIAN AT ANADDITIONAL CHARGE TO THE PATIENT. CBC W/AUTO [id number] 08:53:00* Test Item Value Reference Range Comments WHITE BLOOD CELL (test code=WBC) 3.7 K/mm3 4.5-12.5 RED BLOOD CELL (test code=RBC) 3.06 mill/mm3 3.7-5.2 HEMOGLOBIN (test code=HGB) 9.0 gram/dL 11.5-15.5 HEMATOCRIT (test code=HCT) 29.5 % 36.0-46.0 MEAN CELL VOLUME (test code=MCV) 96.4 fL 80-98 MEAN CELL HGB (test code=MCH) 29.4 picogram 27.0-33.0 MEAN CELL HGB CONCETRATION (test code=MCHC) 30.5 gram/dL 33.0-36.0 RED CELL DISTRIBUTION WIDTH (test code=RDW) 19.8 % 11.6-16.2 RED CELL DISTRIBUTION WIDTH SD (test code=RDW-SD) 69.3 fL 37.0-51.0 PLATELET COUNT (test code=PLT) 78 K/mm3 150-450 MEAN PLATELET VOLUME (test code=MPV) 11.7 fL 6.7-11.0 NEUTROPHIL % (test code=NT%) 73.8 % 39.0-69.0 IMMATURE GRANULOCYTE % (test code=IG%) 1.1 % 0.0-5.0 LYMPHOCYTE % (test code=LY%) 13.9 % 25.0-55.0 MONOCYTE % (test code=MO%) 9.9 % 0.0-10.0 EOSINOPHIL % (test code=EO%) 0.8 % 0.0-5.0 BASOPHIL % (test code=BA%) 0.5 % 0.0-1.0 NUCLEATED RBC % (test code=NRBC%) 0.0 % 0-0 NEUTROPHIL # (test code=NT#) 2.76 K/mm3 1.8-7.7 IMMATURE GRANULOCYTE # (test code=IG#) 0.04 x10 3/uL 0-0.03 LYMPHOCYTE # (test code=LY#) 0.52 K/mm3 1.0-5.0 MONOCYTE # (test code=MO#) 0.37 K/mm3 0-0.8 EOSINOPHIL # (test code=EO#) 0.03 K/mm3 0.0-0.5 BASOPHIL # (test code=BA#) 0.02 K/mm3 0.0-0.2 NUCLEATED RBC # (test code=NRBC#) 0.00 K/mm3 0.0-0.1 MANUAL DIFF REQUIRED (test code=MDIFF) NO, ONLY SCAN NEEDED DIFFERENTIAL [id number] 08:53:00* Test Item Value Reference Range Comments STAIN ACCEPTABILITY (test code=STN ACCEPTABLE) STAIN ACCEPTABLE ANISOCYTOSIS (test code=ANISO) 1+ MACROCYTOSIS (test code=MACR) 1+ PLATELET ESTIMATE (test code=PLTEST) DECREASED PLATELET MORPHOLOGY (test code=PLTMORPH) SIZE VARIABLE [id number] 08:44:00* Test Item Value Reference Range Comments AMMONIA (test code=AMM) 268 umol/L 11-32 BASIC METABOLIC [id number] 08:43:00* Test Item Value Reference Range Comments SODIUM (test code=NA) 139 mmol/L 136-145 POTASSIUM (test code=K) 5.7 mmol/L 3.5-5.1 CHLORIDE (test code=CL) 102.0 mmol/L 98-107 CARBON DIOXIDE (test code=CO2) mmol/L 21-32 ANION GAP (test code=GAP) 10-20 GLUCOSE (test code=GLU) mg/dL 74-106 BLOOD UREA NITROGEN (test code=BUN) mg/dL 7-18 GLOMERULAR FILTRATION RATE (test code=GFR) mL/min >=60 CREATININE (test code=CREAT) mg/dL 0.55-1.02 BUN/CREATININE RATIO (test code=BUN/CREA) 10-20 CALCIUM (test code=CA) mg/dL 8.5-10.1 HEPATIC FUNCTION [id number] 08:43:00* Test Item Value Reference Range Comments TOTAL PROTEIN (test code=PROT) gram/dL 6.4-8.2 ALBUMIN (test code=ALB) g/dL 3.4-5.0 GLOBULIN (test code=GLOB) gram/dL 2.7-4.2 ALBUMIN/GLOBULIN RATIO (test code=A/G) 0.75-1.50 BILIRUBIN TOTAL (test code=BILT) mg/dL 0.0-1.0 BILIRUBIN DIRECT (test code=BILD) mg/dL 0.0-0.20 SGOT/AST (test code=AST) IUnit/L 15-37 SGPT/ALT (test code=ALT) IUnit/L 12-78 ALKALINE PHOSPHATASE TOTAL (test code=ALKP) IUnit/L 45-117 [id number] 08:43:00* Test Item Value Reference Range Comments TROPONIN-I (test code=TROPI) ng/mL 0-0.045 [id number] 08:43:00* Test Item Value Reference Range Comments ACETAMINOPHEN (test code=ACET) mcg/mL 10-30 [id number] 08:43:00* Test Item Value Reference Range Comments SALICYLATE (test code=LUNA) mg/dL 2.8-20.0 [id number] 08:43:00* Test Item Value Reference Range Comments ALCOHOL (test code=ALC) mg/dL 0-3 PROTHROMBIN [id number] 08:40:00* Test Item Value Reference Range Comments PROTHROMBIN TIME PATIENT (test code=PTP) 12.2 seconds 9.0-14.0 INTERNATIONAL NORMAL RATIO (test code=INR) 1.0 0.8-1.2 The therapeutic range for oral anticoagulant therapy formost indications is an international normalized ratio (INR)of between 2.0 and 3.0. The recommended therapeutic INRrange for various clinical situations is listed below: Clinical Situation INR range Pulmonary e mbolism treatment (2.0-3.0)Venous thrombosis treatmentVenous thrombosis prophylaxis (high risk surgery)Prevention of systemic embolism from: Acute myocardial infarction Valvular heart disease Atrial fibrillation Mechanical prosthetic heart valves (2.5-3.5) IS PATIENT ON ANTICOAGULANTS? NTHROMBOPLASTIN TIME [id number] 08:40:00* Test Item Value Reference Range Comments THROMBOPLASTIN TIME PARTIAL (test code=PTT) 30.5 seconds 25.0-36.5 IS PATIENT ON ANTICOAGULANTS? [id number] 08:33:00* Test Item Value Reference Range Comments GLUBED (test code=GLUBED) 192 mg/dL 74-106 Performed by certified paper core machine operator at [facility] - CT HEAD/BRAIN W/O [id number] 08:14:00 Name: ALEX STANTON [facility] : 1950 Age/S: 67 / F [address] Unit #: [id number] Loc: [place] [address] Phys: Xavier Davila MD Acct: [id number] Dis Date: Status: REG ER PHONE #: [phone] Exam Date: 04/18/2018 0749 FAX #: [phone] Reason: Altered Mental Status EXAMS: CPT CODE: [id number] CT HEAD/BRAIN W/O CONT 84613 HISTORY: Confusion COMPARISON: March 22, 2018. CT brain without contrast: Automated exposure control. No acute intracranial bleeds or extra-axial collections are noted. No acute territorial vascular infarction is noted. The sulci, gyri, ventricles and subarachnoid spaces and the basilar cisterns are normal for patient's age. No herniation or hydrocephalus or midline shift is noted. Mild periventricular ischemic gliosis is noted. Age-appropriate atrophy is noted as well. Portions of the visualized paranasal sinuses are normal. No obvious bony calvarial defect is noted. Right mastoiditis. IMPRESSION: No acute intracranial bleeds or extra-axial collections. No acute territorial vascular infarction. No herniation or hydrocephalus or midline shift. Chronic white matter ischemic disease and atrophy . Right mastoiditis. at 0814 Reported and signed by: José Miguel Elias M.D. CC: Xavier Davila MD; John Lopez Technologist:Alexandro Montano RT(R),(MR),(CT); CTDI: DLP: Trnscb Date/Time: 04/18/2018 (813) [email or web address] Orig Print D/T: S: 04/18/2018 (816) CTDI: DLP: PAGE 1 Signed Report CBC W/AUTO [id number] 08:12:00* Test Item Value Reference Range Comments WHITE BLOOD CELL (test code=WBC) 3.7 K/mm3 4.5-12.5 RED BLOOD CELL (test code=RBC) 3.06 mill/mm3 3.7-5.2 HEMOGLOBIN (test code=HGB) 9.0 gram/dL 11.5-15.5 HEMATOCRIT (test code=HCT) 29.5 % 36.0-46.0 MEAN CELL VOLUME (test code=MCV) 96.4 fL 80-98 MEAN CELL HGB (test code=MCH) 29.4 picogram 27.0-33.0 MEAN CELL HGB CONCETRATION (test code=MCHC) 30.5 gram/dL 33.0-36.0 RED CELL DISTRIBUTION WIDTH (test code=RDW) 19.8 % 11.6-16.2 RED CELL DISTRIBUTION WIDTH SD (test code=RDW-SD) 69.3 fL 37.0-51.0 PLATELET COUNT (test code=PLT) 78 K/mm3 150-450 MEAN PLATELET VOLUME (test code=MPV) 11.7 fL 6.7-11.0 NEUTROPHIL % (test code=NT%) 73.8 % 39.0-69.0 IMMATURE GRANULOCYTE % (test code=IG%) 1.1 % 0.0-5.0 LYMPHOCYTE % (test code=LY%) 13.9 % 25.0-55.0 MONOCYTE % (test code=MO%) 9.9 % 0.0-10.0 EOSINOPHIL % (test code=EO%) 0.8 % 0.0-5.0 BASOPHIL % (test code=BA%) 0.5 % 0.0-1.0 NUCLEATED RBC % (test code=NRBC%) 0.0 % 0-0 NEUTROPHIL # (test code=NT#) 2.76 K/mm3 1.8-7.7 IMMATURE GRANULOCYTE # (test code=IG#) 0.04 x10 3/uL 0-0.03 LYMPHOCYTE # (test code=LY#) 0.52 K/mm3 1.0-5.0 MONOCYTE # (test code=MO#) 0.37 K/mm3 0-0.8 EOSINOPHIL # (test code=EO#) 0.03 K/mm3 0.0-0.5 BASOPHIL # (test code=BA#) 0.02 K/mm3 0.0-0.2 NUCLEATED RBC # (test code=NRBC#) 0.00 K/mm3 0.0-0.1 MANUAL DIFF REQUIRED (test code=MDIFF) NO, ONLY SCAN NEEDED DIFFERENTIAL [id number] 08:12:00* Test Item Value Reference Range Comments STAIN ACCEPTABILITY (test code=STN ACCEPTABLE) CABOT RINGS (test code=CAB) MORPHOLOGY COMMENT (test code=MOC) PLATELET ESTIMATE (test code=PLTEST) PLATELET MORPHOLOGY (test code=PLTMORPH) CBC W/AUTO [id number] 08:12:00* Test Item Value Reference Range Comments WHITE BLOOD CELL (test code=WBC) 3.7 K/mm3 4.5-12.5 RED BLOOD CELL (test code=RBC) 3.06 mill/mm3 3.7-5.2 HEMOGLOBIN (test code=HGB) 9.0 gram/dL 11.5-15.5 HEMATOCRIT (test code=HCT) 29.5 % 36.0-46.0 MEAN CELL VOLUME (test code=MCV) 96.4 fL 80-98 MEAN CELL HGB (test code=MCH) 29.4 picogram 27.0-33.0 MEAN CELL HGB CONCETRATION (test code=MCHC) 30.5 gram/dL 33.0-36.0 RED CELL DISTRIBUTION WIDTH (test code=RDW) 19.8 % 11.6-16.2 RED CELL DISTRIBUTION WIDTH SD (test code=RDW-SD) 69.3 fL 37.0-51.0 PLATELET COUNT (test code=PLT) 78 K/mm3 150-450 MEAN PLATELET VOLUME (test code=MPV) 11.7 fL 6.7-11.0 NEUTROPHIL % (test code=NT%) 73.8 % 39.0-69.0 IMMATURE GRANULOCYTE % (test code=IG%) 1.1 % 0.0-5.0 LYMPHOCYTE % (test code=LY%) 13.9 % 25.0-55.0 MONOCYTE % (test code=MO%) 9.9 % 0.0-10.0 EOSINOPHIL % (test code=EO%) 0.8 % 0.0-5.0 BASOPHIL % (test code=BA%) 0.5 % 0.0-1.0 NUCLEATED RBC % (test code=NRBC%) 0.0 % 0-0 NEUTROPHIL # (test code=NT#) 2.76 K/mm3 1.8-7.7 IMMATURE GRANULOCYTE # (test code=IG#) 0.04 x10 3/uL 0-0.03 LYMPHOCYTE # (test code=LY#) 0.52 K/mm3 1.0-5.0 MONOCYTE # (test code=MO#) 0.37 K/mm3 0-0.8 EOSINOPHIL # (test code=EO#) 0.03 K/mm3 0.0-0.5 BASOPHIL # (test code=BA#) 0.02 K/mm3 0.0-0.2 NUCLEATED RBC # (test code=NRBC#) 0.00 K/mm3 0.0-0.1 MANUAL DIFF REQUIRED (test code=MDIFF) NO, ONLY SCAN NEEDED DIFFERENTIAL [id number] 08:12:00* Test Item Value Reference Range Comments STAIN ACCEPTABILITY (test code=STN ACCEPTABLE) CABOT RINGS (test code=CAB) MORPHOLOGY COMMENT (test code=MOC) PLATELET ESTIMATE (test code=PLTEST) PLATELET MORPHOLOGY (test code=PLTMORPH) CBC W/AUTO [id number] 08:12:00* Test Item Value Reference Range Comments WHITE BLOOD CELL (test code=WBC) 3.7 K/mm3 4.5-12.5 RED BLOOD CELL (test code=RBC) 3.06 mill/mm3 3.7-5.2 HEMOGLOBIN (test code=HGB) 9.0 gram/dL 11.5-15.5 HEMATOCRIT (test code=HCT) 29.5 % 36.0-46.0 MEAN CELL VOLUME (test code=MCV) 96.4 fL 80-98 MEAN CELL HGB (test code=MCH) 29.4 picogram 27.0-33.0 MEAN CELL HGB CONCETRATION (test code=MCHC) 30.5 gram/dL 33.0-36.0 RED CELL DISTRIBUTION WIDTH (test code=RDW) 19.8 % 11.6-16.2 RED CELL DISTRIBUTION WIDTH SD (test code=RDW-SD) 69.3 fL 37.0-51.0 PLATELET COUNT (test code=PLT) 78 K/mm3 150-450 MEAN PLATELET VOLUME (test code=MPV) 11.7 fL 6.7-11.0 NEUTROPHIL % (test code=NT%) 73.8 % 39.0-69.0 IMMATURE GRANULOCYTE % (test code=IG%) 1.1 % 0.0-5.0 LYMPHOCYTE % (test code=LY%) 13.9 % 25.0-55.0 MONOCYTE % (test code=MO%) 9.9 % 0.0-10.0 EOSINOPHIL % (test code=EO%) 0.8 % 0.0-5.0 BASOPHIL % (test code=BA%) 0.5 % 0.0-1.0 NUCLEATED RBC % (test code=NRBC%) 0.0 % 0-0 NEUTROPHIL # (test code=NT#) 2.76 K/mm3 1.8-7.7 IMMATURE GRANULOCYTE # (test code=IG#) 0.04 x10 3/uL 0-0.03 LYMPHOCYTE # (test code=LY#) 0.52 K/mm3 1.0-5.0 MONOCYTE # (test code=MO#) 0.37 K/mm3 0-0.8 EOSINOPHIL # (test code=EO#) 0.03 K/mm3 0.0-0.5 BASOPHIL # (test code=BA#) 0.02 K/mm3 0.0-0.2 NUCLEATED RBC # (test code=NRBC#) 0.00 K/mm3 0.0-0.1 MANUAL DIFF REQUIRED (test code=MDIFF) NO, ONLY SCAN NEEDED DIFFERENTIAL [id number] 08:12:00* Test Item Value Reference Range Comments STAIN ACCEPTABILITY (test code=STN ACCEPTABLE) MORPHOLOGY COMMENT (test code=MOC) PLATELET ESTIMATE (test code=PLTEST) PLATELET MORPHOLOGY (test code=PLTMORPH) CBC W/AUTO [id number] 08:12:00* Test Item Value Reference Range Comments WHITE BLOOD CELL (test code=WBC) 3.7 K/mm3 4.5-12.5 RED BLOOD CELL (test code=RBC) 3.06 mill/mm3 3.7-5.2 HEMOGLOBIN (test code=HGB) 9.0 gram/dL 11.5-15.5 HEMATOCRIT (test code=HCT) 29.5 % 36.0-46.0 MEAN CELL VOLUME (test code=MCV) 96.4 fL 80-98 MEAN CELL HGB (test code=MCH) 29.4 picogram 27.0-33.0 MEAN CELL HGB CONCETRATION (test code=MCHC) 30.5 gram/dL 33.0-36.0 RED CELL DISTRIBUTION WIDTH (test code=RDW) 19.8 % 11.6-16.2 RED CELL DISTRIBUTION WIDTH SD (test code=RDW-SD) 69.3 fL 37.0-51.0 PLATELET COUNT (test code=PLT) 78 K/mm3 150-450 MEAN PLATELET VOLUME (test code=MPV) 11.7 fL 6.7-11.0 NEUTROPHIL % (test code=NT%) 73.8 % 39.0-69.0 IMMATURE GRANULOCYTE % (test code=IG%) 1.1 % 0.0-5.0 LYMPHOCYTE % (test code=LY%) 13.9 % 25.0-55.0 MONOCYTE % (test code=MO%) 9.9 % 0.0-10.0 EOSINOPHIL % (test code=EO%) 0.8 % 0.0-5.0 BASOPHIL % (test code=BA%) 0.5 % 0.0-1.0 NUCLEATED RBC % (test code=NRBC%) 0.0 % 0-0 NEUTROPHIL # (test code=NT#) 2.76 K/mm3 1.8-7.7 IMMATURE GRANULOCYTE # (test code=IG#) 0.04 x10 3/uL 0-0.03 LYMPHOCYTE # (test code=LY#) 0.52 K/mm3 1.0-5.0 MONOCYTE # (test code=MO#) 0.37 K/mm3 0-0.8 EOSINOPHIL # (test code=EO#) 0.03 K/mm3 0.0-0.5 BASOPHIL # (test code=BA#) 0.02 K/mm3 0.0-0.2 NUCLEATED RBC # (test code=NRBC#) 0.00 K/mm3 0.0-0.1 MANUAL DIFF REQUIRED (test code=MDIFF) NO, ONLY SCAN NEEDED DIFFERENTIAL [id number] 08:12:00* Test Item Value Reference Range Comments STAIN ACCEPTABILITY (test code=STN ACCEPTABLE) CABOT RINGS (test code=CAB) MORPHOLOGY COMMENT (test code=MOC) PLATELET ESTIMATE (test code=PLTEST) PLATELET MORPHOLOGY (test code=PLTMORPH) - XR CHEST 1 [id number] 07:35:00 FAX: Xavier Davila Dix: B St: REG FAX: John Motta MD [phone] Name: ALEX STANTON [facility] : 1950 Age/S: 67/F [address] Unit #: [id number] Loc: [place] [address] Phys: Xavier Davila MD Acct: [id number] Dis Date: Status: REG ER PHONE #: [phone] Exam Date: 04/18/2018724 FAX #: [phone] Reason: Altered Mental Status EXAMS: CPT CODE: [id number] XR CHEST 1 V 18910 EXAM: Chest x-ray, one view; INFORMATION: Altered mental status, confused and aggressive; IMPRESSION: Compared with the recent study from April 07, 2018 there are increased vascular markings which may in part be due to atelectatic changes but more likely due to mild left heart failure. This is combined with mild cardiomegaly. at 0735 Reported and signed by: Gonsalo Mayorga M.D. CC: Xavier Davila MD; John Lopez Technologist: RT MINE(More) Trnscrd Date/Time/By: 04/18/2018 (0735) : By: AgustoGRW Orig Print D/T: S: 04/18/2018 (0738) PAGE 1 Signed Report [id number] 16:52:00* Test Item Value Reference Range Comments GLUBED (test code=GLUBED) 221 mg/dL 74-106 Performed by certified paper core machine operator at [facility] BASIC METABOLIC [id number] 11:02:00* Test Item Value Reference Range Comments SODIUM (test code=NA) 141 mmol/L 136-145 POTASSIUM (test code=K) 3.5 mmol/L 3.5-5.1 CHLORIDE (test code=CL) 103.0 mmol/L 98-107 CARBON DIOXIDE (test code=CO2) 27.0 mmol/L 21-32 ANION GAP (test code=GAP) 14.5 10-20 GLUCOSE (test code=GLU) 94 mg/dL 74-106 BLOOD UREA NITROGEN (test code=BUN) 14 mg/dL 7-18 GLOMERULAR FILTRATION RATE (test code=GFR) 50 mL/min >=60 Estimated GFR by using Modified MDRD formula.Chronic kidney disease is defined as either kidney damageor GFR <60 mL/min/1.73 m2 for >3 months. CREATININE (test code=CREAT) 1.10 mg/dL 0.55-1.02 Note change in reference range due to change in reagent. BUN/CREATININE RATIO (test code=BUN/CREA) 12.5 10-20 CALCIUM (test code=CA) 7.7 mg/dL 8.5-10.1 BASIC METABOLIC [id number] 10:52:00* Test Item Value Reference Range Comments SODIUM (test code=NA) 141 mmol/L 136-145 POTASSIUM (test code=K) 3.5 mmol/L 3.5-5.1 CHLORIDE (test code=CL) 103.0 mmol/L 98-107 CARBON DIOXIDE (test code=CO2) mmol/L 21-32 ANION GAP (test code=GAP) 10-20 GLUCOSE (test code=GLU) mg/dL 74-106 BLOOD UREA NITROGEN (test code=BUN) mg/dL 7-18 GLOMERULAR FILTRATION RATE (test code=GFR) mL/min >=60 CREATININE (test code=CREAT) mg/dL 0.55-1.02 BUN/CREATININE RATIO (test code=BUN/CREA) 10-20 CALCIUM (test code=CA) mg/dL 8.5-10.1 CBC W/AUTO [id number] 05:23:00* Test Item Value Reference Range Comments WHITE BLOOD CELL (test code=WBC) 3.0 K/mm3 4.5-12.5 RED BLOOD CELL (test code=RBC) 2.81 mill/mm3 3.7-5.2 HEMOGLOBIN (test code=HGB) 8.2 gram/dL 11.5-15.5 HEMATOCRIT (test code=HCT) 26.1 % 36.0-46.0 MEAN CELL VOLUME (test code=MCV) 92.9 fL 80-98 MEAN CELL HGB (test code=MCH) 29.2 picogram 27.0-33.0 MEAN CELL HGB CONCETRATION (test code=MCHC) 31.4 gram/dL 33.0-36.0 RED CELL DISTRIBUTION WIDTH (test code=RDW) 18.2 % 11.6-16.2 RED CELL DISTRIBUTION WIDTH SD (test code=RDW-SD) 59.7 fL 37.0-51.0 PLATELET COUNT (test code=PLT) 81 K/mm3 150-450 MEAN PLATELET VOLUME (test code=MPV) 10.9 fL 6.7-11.0 NEUTROPHIL % (test code=NT%) 53.6 % 39.0-69.0 IMMATURE GRANULOCYTE % (test code=IG%) 0.3 % 0.0-5.0 LYMPHOCYTE % (test code=LY%) 31.5 % 25.0-55.0 MONOCYTE % (test code=MO%) 12.6 % 0.0-10.0 EOSINOPHIL % (test code=EO%) 1.0 % 0.0-5.0 BASOPHIL % (test code=BA%) 1.0 % 0.0-1.0 NUCLEATED RBC % (test code=NRBC%) 0.0 % 0-0 NEUTROPHIL # (test code=NT#) 1.62 K/mm3 1.8-7.7 IMMATURE GRANULOCYTE # (test code=IG#) 0.01 x10 3/uL 0-0.03 LYMPHOCYTE # (test code=LY#) 0.95 K/mm3 1.0-5.0 MONOCYTE # (test code=MO#) 0.38 K/mm3 0-0.8 EOSINOPHIL # (test code=EO#) 0.03 K/mm3 0.0-0.5 BASOPHIL # (test code=BA#) 0.03 K/mm3 0.0-0.2 NUCLEATED RBC # (test code=NRBC#) 0.00 K/mm3 0.0-0.1 MANUAL DIFF REQUIRED (test code=MDIFF) NO, ONLY SCAN NEEDED DIFFERENTIAL [id number] 05:23:00* Test Item Value Reference Range Comments STAIN ACCEPTABILITY (test code=STN ACCEPTABLE) STAIN ACCEPTABLE ANISOCYTOSIS (test code=ANISO) 1+ PLATELET ESTIMATE (test code=PLTEST) DECREASED PLATELET MORPHOLOGY (test code=PLTMORPH) SIZE VARIABLE CBC W/AUTO [id number] 04:55:00* Test Item Value Reference Range Comments WHITE BLOOD CELL (test code=WBC) 3.0 K/mm3 4.5-12.5 RED BLOOD CELL (test code=RBC) 2.81 mill/mm3 3.7-5.2 HEMOGLOBIN (test code=HGB) 8.2 gram/dL 11.5-15.5 HEMATOCRIT (test code=HCT) 26.1 % 36.0-46.0 MEAN CELL VOLUME (test code=MCV) 92.9 fL 80-98 MEAN CELL HGB (test code=MCH) 29.2 picogram 27.0-33.0 MEAN CELL HGB CONCETRATION (test code=MCHC) 31.4 gram/dL 33.0-36.0 RED CELL DISTRIBUTION WIDTH (test code=RDW) 18.2 % 11.6-16.2 RED CELL DISTRIBUTION WIDTH SD (test code=RDW-SD) 59.7 fL 37.0-51.0 PLATELET COUNT (test code=PLT) 81 K/mm3 150-450 MEAN PLATELET VOLUME (test code=MPV) 10.9 fL 6.7-11.0 NEUTROPHIL % (test code=NT%) 53.6 % 39.0-69.0 IMMATURE GRANULOCYTE % (test code=IG%) 0.3 % 0.0-5.0 LYMPHOCYTE % (test code=LY%) 31.5 % 25.0-55.0 MONOCYTE % (test code=MO%) 12.6 % 0.0-10.0 EOSINOPHIL % (test code=EO%) 1.0 % 0.0-5.0 BASOPHIL % (test code=BA%) 1.0 % 0.0-1.0 NUCLEATED RBC % (test code=NRBC%) 0.0 % 0-0 NEUTROPHIL # (test code=NT#) 1.62 K/mm3 1.8-7.7 IMMATURE GRANULOCYTE # (test code=IG#) 0.01 x10 3/uL 0-0.03 LYMPHOCYTE # (test code=LY#) 0.95 K/mm3 1.0-5.0 MONOCYTE # (test code=MO#) 0.38 K/mm3 0-0.8 EOSINOPHIL # (test code=EO#) 0.03 K/mm3 0.0-0.5 BASOPHIL # (test code=BA#) 0.03 K/mm3 0.0-0.2 NUCLEATED RBC # (test code=NRBC#) 0.00 K/mm3 0.0-0.1 MANUAL DIFF REQUIRED (test code=MDIFF) NO, ONLY SCAN NEEDED DIFFERENTIAL [id number] 04:55:00* Test Item Value Reference Range Comments STAIN ACCEPTABILITY (test code=STN ACCEPTABLE) CABOT RINGS (test code=CAB) MORPHOLOGY COMMENT (test code=MOC) PLATELET ESTIMATE (test code=PLTEST) PLATELET MORPHOLOGY (test code=PLTMORPH) CBC W/AUTO [id number] 04:55:00* Test Item Value Reference Range Comments WHITE BLOOD CELL (test code=WBC) 3.0 K/mm3 4.5-12.5 RED BLOOD CELL (test code=RBC) 2.81 mill/mm3 3.7-5.2 HEMOGLOBIN (test code=HGB) 8.2 gram/dL 11.5-15.5 HEMATOCRIT (test code=HCT) 26.1 % 36.0-46.0 MEAN CELL VOLUME (test code=MCV) 92.9 fL 80-98 MEAN CELL HGB (test code=MCH) 29.2 picogram 27.0-33.0 MEAN CELL HGB CONCETRATION (test code=MCHC) 31.4 gram/dL 33.0-36.0 RED CELL DISTRIBUTION WIDTH (test code=RDW) 18.2 % 11.6-16.2 RED CELL DISTRIBUTION WIDTH SD (test code=RDW-SD) 59.7 fL 37.0-51.0 PLATELET COUNT (test code=PLT) 81 K/mm3 150-450 MEAN PLATELET VOLUME (test code=MPV) 10.9 fL 6.7-11.0 NEUTROPHIL % (test code=NT%) 53.6 % 39.0-69.0 IMMATURE GRANULOCYTE % (test code=IG%) 0.3 % 0.0-5.0 LYMPHOCYTE % (test code=LY%) 31.5 % 25.0-55.0 MONOCYTE % (test code=MO%) 12.6 % 0.0-10.0 EOSINOPHIL % (test code=EO%) 1.0 % 0.0-5.0 BASOPHIL % (test code=BA%) 1.0 % 0.0-1.0 NUCLEATED RBC % (test code=NRBC%) 0.0 % 0-0 NEUTROPHIL # (test code=NT#) 1.62 K/mm3 1.8-7.7 IMMATURE GRANULOCYTE # (test code=IG#) 0.01 x10 3/uL 0-0.03 LYMPHOCYTE # (test code=LY#) 0.95 K/mm3 1.0-5.0 MONOCYTE # (test code=MO#) 0.38 K/mm3 0-0.8 EOSINOPHIL # (test code=EO#) 0.03 K/mm3 0.0-0.5 BASOPHIL # (test code=BA#) 0.03 K/mm3 0.0-0.2 NUCLEATED RBC # (test code=NRBC#) 0.00 K/mm3 0.0-0.1 MANUAL DIFF REQUIRED (test code=MDIFF) NO, ONLY SCAN NEEDED DIFFERENTIAL [id number] 04:55:00* Test Item Value Reference Range Comments STAIN ACCEPTABILITY (test code=STN ACCEPTABLE) MORPHOLOGY COMMENT (test code=MOC) PLATELET ESTIMATE (test code=PLTEST) PLATELET MORPHOLOGY (test code=PLTMORPH) CBC W/AUTO [id number] 04:55:00* Test Item Value Reference Range Comments WHITE BLOOD CELL (test code=WBC) 3.0 K/mm3 4.5-12.5 RED BLOOD CELL (test code=RBC) 2.81 mill/mm3 3.7-5.2 HEMOGLOBIN (test code=HGB) 8.2 gram/dL 11.5-15.5 HEMATOCRIT (test code=HCT) 26.1 % 36.0-46.0 MEAN CELL VOLUME (test code=MCV) 92.9 fL 80-98 MEAN CELL HGB (test code=MCH) 29.2 picogram 27.0-33.0 MEAN CELL HGB CONCETRATION (test code=MCHC) 31.4 gram/dL 33.0-36.0 RED CELL DISTRIBUTION WIDTH (test code=RDW) 18.2 % 11.6-16.2 RED CELL DISTRIBUTION WIDTH SD (test code=RDW-SD) 59.7 fL 37.0-51.0 PLATELET COUNT (test code=PLT) 81 K/mm3 150-450 MEAN PLATELET VOLUME (test code=MPV) 10.9 fL 6.7-11.0 NEUTROPHIL % (test code=NT%) 53.6 % 39.0-69.0 IMMATURE GRANULOCYTE % (test code=IG%) 0.3 % 0.0-5.0 LYMPHOCYTE % (test code=LY%) 31.5 % 25.0-55.0 MONOCYTE % (test code=MO%) 12.6 % 0.0-10.0 EOSINOPHIL % (test code=EO%) 1.0 % 0.0-5.0 BASOPHIL % (test code=BA%) 1.0 % 0.0-1.0 NUCLEATED RBC % (test code=NRBC%) 0.0 % 0-0 NEUTROPHIL # (test code=NT#) 1.62 K/mm3 1.8-7.7 IMMATURE GRANULOCYTE # (test code=IG#) 0.01 x10 3/uL 0-0.03 LYMPHOCYTE # (test code=LY#) 0.95 K/mm3 1.0-5.0 MONOCYTE # (test code=MO#) 0.38 K/mm3 0-0.8 EOSINOPHIL # (test code=EO#) 0.03 K/mm3 0.0-0.5 BASOPHIL # (test code=BA#) 0.03 K/mm3 0.0-0.2 NUCLEATED RBC # (test code=NRBC#) 0.00 K/mm3 0.0-0.1 MANUAL DIFF REQUIRED (test code=MDIFF) NO, ONLY SCAN NEEDED DIFFERENTIAL [id number] 04:55:00* Test Item Value Reference Range Comments STAIN ACCEPTABILITY (test code=STN ACCEPTABLE) MORPHOLOGY COMMENT (test code=MOC) PLATELET ESTIMATE (test code=PLTEST) PLATELET MORPHOLOGY (test code=PLTMORPH) CBC W/AUTO [id number] 04:55:00* Test Item Value Reference Range Comments WHITE BLOOD CELL (test code=WBC) 3.0 K/mm3 4.5-12.5 RED BLOOD CELL (test code=RBC) 2.81 mill/mm3 3.7-5.2 HEMOGLOBIN (test code=HGB) 8.2 gram/dL 11.5-15.5 HEMATOCRIT (test code=HCT) 26.1 % 36.0-46.0 MEAN CELL VOLUME (test code=MCV) 92.9 fL 80-98 MEAN CELL HGB (test code=MCH) 29.2 picogram 27.0-33.0 MEAN CELL HGB CONCETRATION (test code=MCHC) 31.4 gram/dL 33.0-36.0 RED CELL DISTRIBUTION WIDTH (test code=RDW) 18.2 % 11.6-16.2 RED CELL DISTRIBUTION WIDTH SD (test code=RDW-SD) 59.7 fL 37.0-51.0 PLATELET COUNT (test code=PLT) 81 K/mm3 150-450 MEAN PLATELET VOLUME (test code=MPV) 10.9 fL 6.7-11.0 NEUTROPHIL % (test code=NT%) 53.6 % 39.0-69.0 IMMATURE GRANULOCYTE % (test code=IG%) 0.3 % 0.0-5.0 LYMPHOCYTE % (test code=LY%) 31.5 % 25.0-55.0 MONOCYTE % (test code=MO%) 12.6 % 0.0-10.0 EOSINOPHIL % (test code=EO%) 1.0 % 0.0-5.0 BASOPHIL % (test code=BA%) 1.0 % 0.0-1.0 NUCLEATED RBC % (test code=NRBC%) 0.0 % 0-0 NEUTROPHIL # (test code=NT#) 1.62 K/mm3 1.8-7.7 IMMATURE GRANULOCYTE # (test code=IG#) 0.01 x10 3/uL 0-0.03 LYMPHOCYTE # (test code=LY#) 0.95 K/mm3 1.0-5.0 MONOCYTE # (test code=MO#) 0.38 K/mm3 0-0.8 EOSINOPHIL # (test code=EO#) 0.03 K/mm3 0.0-0.5 BASOPHIL # (test code=BA#) 0.03 K/mm3 0.0-0.2 NUCLEATED RBC # (test code=NRBC#) 0.00 K/mm3 0.0-0.1 MANUAL DIFF REQUIRED (test code=MDIFF) NO, ONLY SCAN NEEDED DIFFERENTIAL [id number] 04:55:00* Test Item Value Reference Range Comments STAIN ACCEPTABILITY (test code=STN ACCEPTABLE) CABOT RINGS (test code=CAB) MORPHOLOGY COMMENT (test code=MOC) PLATELET ESTIMATE (test code=PLTEST) PLATELET MORPHOLOGY (test code=PLTMORPH) [id number] 20:45:00* Test Item Value Reference Range Comments GLUBED (test code=GLUBED) 124 mg/dL 74-106 Performed by certified paper core machine operator at [facility] [id number] 17:04:00* Test Item Value Reference Range Comments GLUBED (test code=GLUBED) 93 mg/dL 74-106 Performed by certified paper core machine operator at [facility] [id number] 12:50:00* Test Item Value Reference Range Comments GLUBED (test code=GLUBED) 144 mg/dL 74-106 Performed by certified paper core machine operator at [facility] [id number] 12:38:00* Test Item Value Reference Range Comments AMMONIA (test code=AMM) 117 umol/L - [id number] 08:41:00* Test Item Value Reference Range Comments GLUBED (test code=GLUBED) 99 mg/dL 74-106 Performed by certified paper core machine operator at [facility] CBC W/AUTO [id number] 06:01:00* Test Item Value Reference Range Comments WHITE BLOOD CELL (test code=WBC) 2.8 K/mm3 4.5-12.5 RED BLOOD CELL (test code=RBC) 2.59 mill/mm3 3.7-5.2 HEMOGLOBIN (test code=HGB) 7.3 gram/dL 11.5-15.5 HEMATOCRIT (test code=HCT) 24.2 % 36.0-46.0 MEAN CELL VOLUME (test code=MCV) 93.4 fL 80-98 MEAN CELL HGB (test code=MCH) 28.2 picogram 27.0-33.0 MEAN CELL HGB CONCETRATION (test code=MCHC) 30.2 gram/dL 33.0-36.0 RED CELL DISTRIBUTION WIDTH (test code=RDW) 18.8 % 11.6-16.2 RED CELL DISTRIBUTION WIDTH SD (test code=RDW-SD) 62.8 fL 37.0-51.0 PLATELET COUNT (test code=PLT) 80 K/mm3 150-450 MEAN PLATELET VOLUME (test code=MPV) 11.1 fL 6.7-11.0 NEUTROPHIL % (test code=NT%) 52.4 % 39.0-69.0 IMMATURE GRANULOCYTE % (test code=IG%) 0.4 % 0.0-5.0 LYMPHOCYTE % (test code=LY%) 29.3 % 25.0-55.0 MONOCYTE % (test code=MO%) 16.8 % 0.0-10.0 EOSINOPHIL % (test code=EO%) 0.4 % 0.0-5.0 BASOPHIL % (test code=BA%) 0.7 % 0.0-1.0 NUCLEATED RBC % (test code=NRBC%) 0.0 % 0-0 NEUTROPHIL # (test code=NT#) 1.47 K/mm3 1.8-7.7 IMMATURE GRANULOCYTE # (test code=IG#) 0.01 x10 3/uL 0-0.03 LYMPHOCYTE # (test code=LY#) 0.82 K/mm3 1.0-5.0 MONOCYTE # (test code=MO#) 0.47 K/mm3 0-0.8 EOSINOPHIL # (test code=EO#) 0.01 K/mm3 0.0-0.5 BASOPHIL # (test code=BA#) 0.02 K/mm3 0.0-0.2 NUCLEATED RBC # (test code=NRBC#) 0.00 K/mm3 0.0-0.1 MANUAL DIFF REQUIRED (test code=MDIFF) NO, ONLY SCAN NEEDED DIFFERENTIAL [id number] 06:01:00* Test Item Value Reference Range Comments STAIN ACCEPTABILITY (test code=STN ACCEPTABLE) STAIN ACCEPTABLE ANISOCYTOSIS (test code=ANISO) 1+ PLATELET ESTIMATE (test code=PLTEST) DECREASED PLATELET MORPHOLOGY (test code=PLTMORPH) NORMAL CBC W/AUTO [id number] 05:44:00* Test Item Value Reference Range Comments WHITE BLOOD CELL (test code=WBC) 2.8 K/mm3 4.5-12.5 RED BLOOD CELL (test code=RBC) 2.59 mill/mm3 3.7-5.2 HEMOGLOBIN (test code=HGB) 7.3 gram/dL 11.5-15.5 HEMATOCRIT (test code=HCT) 24.2 % 36.0-46.0 MEAN CELL VOLUME (test code=MCV) 93.4 fL 80-98 MEAN CELL HGB (test code=MCH) 28.2 picogram 27.0-33.0 MEAN CELL HGB CONCETRATION (test code=MCHC) 30.2 gram/dL 33.0-36.0 RED CELL DISTRIBUTION WIDTH (test code=RDW) 18.8 % 11.6-16.2 RED CELL DISTRIBUTION WIDTH SD (test code=RDW-SD) 62.8 fL 37.0-51.0 PLATELET COUNT (test code=PLT) 80 K/mm3 150-450 MEAN PLATELET VOLUME (test code=MPV) 11.1 fL 6.7-11.0 NEUTROPHIL % (test code=NT%) 52.4 % 39.0-69.0 IMMATURE GRANULOCYTE % (test code=IG%) 0.4 % 0.0-5.0 LYMPHOCYTE % (test code=LY%) 29.3 % 25.0-55.0 MONOCYTE % (test code=MO%) 16.8 % 0.0-10.0 EOSINOPHIL % (test code=EO%) 0.4 % 0.0-5.0 BASOPHIL % (test code=BA%) 0.7 % 0.0-1.0 NUCLEATED RBC % (test code=NRBC%) 0.0 % 0-0 NEUTROPHIL # (test code=NT#) 1.47 K/mm3 1.8-7.7 IMMATURE GRANULOCYTE # (test code=IG#) 0.01 x10 3/uL 0-0.03 LYMPHOCYTE # (test code=LY#) 0.82 K/mm3 1.0-5.0 MONOCYTE # (test code=MO#) 0.47 K/mm3 0-0.8 EOSINOPHIL # (test code=EO#) 0.01 K/mm3 0.0-0.5 BASOPHIL # (test code=BA#) 0.02 K/mm3 0.0-0.2 NUCLEATED RBC # (test code=NRBC#) 0.00 K/mm3 0.0-0.1 MANUAL DIFF REQUIRED (test code=MDIFF) NO, ONLY SCAN NEEDED DIFFERENTIAL [id number] 05:44:00* Test Item Value Reference Range Comments STAIN ACCEPTABILITY (test code=STN ACCEPTABLE) CABOT RINGS (test code=CAB) MORPHOLOGY COMMENT (test code=MOC) PLATELET ESTIMATE (test code=PLTEST) PLATELET MORPHOLOGY (test code=PLTMORPH) CBC W/AUTO [id number] 05:44:00* Test Item Value Reference Range Comments WHITE BLOOD CELL (test code=WBC) 2.8 K/mm3 4.5-12.5 RED BLOOD CELL (test code=RBC) 2.59 mill/mm3 3.7-5.2 HEMOGLOBIN (test code=HGB) 7.3 gram/dL 11.5-15.5 HEMATOCRIT (test code=HCT) 24.2 % 36.0-46.0 MEAN CELL VOLUME (test code=MCV) 93.4 fL 80-98 MEAN CELL HGB (test code=MCH) 28.2 picogram 27.0-33.0 MEAN CELL HGB CONCETRATION (test code=MCHC) 30.2 gram/dL 33.0-36.0 RED CELL DISTRIBUTION WIDTH (test code=RDW) 18.8 % 11.6-16.2 RED CELL DISTRIBUTION WIDTH SD (test code=RDW-SD) 62.8 fL 37.0-51.0 PLATELET COUNT (test code=PLT) 80 K/mm3 150-450 MEAN PLATELET VOLUME (test code=MPV) 11.1 fL 6.7-11.0 NEUTROPHIL % (test code=NT%) 52.4 % 39.0-69.0 IMMATURE GRANULOCYTE % (test code=IG%) 0.4 % 0.0-5.0 LYMPHOCYTE % (test code=LY%) 29.3 % 25.0-55.0 MONOCYTE % (test code=MO%) 16.8 % 0.0-10.0 EOSINOPHIL % (test code=EO%) 0.4 % 0.0-5.0 BASOPHIL % (test code=BA%) 0.7 % 0.0-1.0 NUCLEATED RBC % (test code=NRBC%) 0.0 % 0-0 NEUTROPHIL # (test code=NT#) 1.47 K/mm3 1.8-7.7 IMMATURE GRANULOCYTE # (test code=IG#) 0.01 x10 3/uL 0-0.03 LYMPHOCYTE # (test code=LY#) 0.82 K/mm3 1.0-5.0 MONOCYTE # (test code=MO#) 0.47 K/mm3 0-0.8 EOSINOPHIL # (test code=EO#) 0.01 K/mm3 0.0-0.5 BASOPHIL # (test code=BA#) 0.02 K/mm3 0.0-0.2 NUCLEATED RBC # (test code=NRBC#) 0.00 K/mm3 0.0-0.1 MANUAL DIFF REQUIRED (test code=MDIFF) NO, ONLY SCAN NEEDED DIFFERENTIAL [id number] 05:44:00* Test Item Value Reference Range Comments STAIN ACCEPTABILITY (test code=STN ACCEPTABLE) CABOT RINGS (test code=CAB) MORPHOLOGY COMMENT (test code=MOC) PLATELET ESTIMATE (test code=PLTEST) PLATELET MORPHOLOGY (test code=PLTMORPH) CBC W/AUTO [id number] 05:44:00* Test Item Value Reference Range Comments WHITE BLOOD CELL (test code=WBC) 2.8 K/mm3 4.5-12.5 RED BLOOD CELL (test code=RBC) 2.59 mill/mm3 3.7-5.2 HEMOGLOBIN (test code=HGB) 7.3 gram/dL 11.5-15.5 HEMATOCRIT (test code=HCT) 24.2 % 36.0-46.0 MEAN CELL VOLUME (test code=MCV) 93.4 fL 80-98 MEAN CELL HGB (test code=MCH) 28.2 picogram 27.0-33.0 MEAN CELL HGB CONCETRATION (test code=MCHC) 30.2 gram/dL 33.0-36.0 RED CELL DISTRIBUTION WIDTH (test code=RDW) 18.8 % 11.6-16.2 RED CELL DISTRIBUTION WIDTH SD (test code=RDW-SD) 62.8 fL 37.0-51.0 PLATELET COUNT (test code=PLT) 80 K/mm3 150-450 MEAN PLATELET VOLUME (test code=MPV) 11.1 fL 6.7-11.0 NEUTROPHIL % (test code=NT%) 52.4 % 39.0-69.0 IMMATURE GRANULOCYTE % (test code=IG%) 0.4 % 0.0-5.0 LYMPHOCYTE % (test code=LY%) 29.3 % 25.0-55.0 MONOCYTE % (test code=MO%) 16.8 % 0.0-10.0 EOSINOPHIL % (test code=EO%) 0.4 % 0.0-5.0 BASOPHIL % (test code=BA%) 0.7 % 0.0-1.0 NUCLEATED RBC % (test code=NRBC%) 0.0 % 0-0 NEUTROPHIL # (test code=NT#) 1.47 K/mm3 1.8-7.7 IMMATURE GRANULOCYTE # (test code=IG#) 0.01 x10 3/uL 0-0.03 LYMPHOCYTE # (test code=LY#) 0.82 K/mm3 1.0-5.0 MONOCYTE # (test code=MO#) 0.47 K/mm3 0-0.8 EOSINOPHIL # (test code=EO#) 0.01 K/mm3 0.0-0.5 BASOPHIL # (test code=BA#) 0.02 K/mm3 0.0-0.2 NUCLEATED RBC # (test code=NRBC#) 0.00 K/mm3 0.0-0.1 MANUAL DIFF REQUIRED (test code=MDIFF) NO, ONLY SCAN NEEDED DIFFERENTIAL [id number] 05:44:00* Test Item Value Reference Range Comments STAIN ACCEPTABILITY (test code=STN ACCEPTABLE) MORPHOLOGY COMMENT (test code=MOC) PLATELET ESTIMATE (test code=PLTEST) PLATELET MORPHOLOGY (test code=PLTMORPH) CBC W/AUTO [id number] 05:44:00* Test Item Value Reference Range Comments WHITE BLOOD CELL (test code=WBC) 2.8 K/mm3 4.5-12.5 RED BLOOD CELL (test code=RBC) 2.59 mill/mm3 3.7-5.2 HEMOGLOBIN (test code=HGB) 7.3 gram/dL 11.5-15.5 HEMATOCRIT (test code=HCT) 24.2 % 36.0-46.0 MEAN CELL VOLUME (test code=MCV) 93.4 fL 80-98 MEAN CELL HGB (test code=MCH) 28.2 picogram 27.0-33.0 MEAN CELL HGB CONCETRATION (test code=MCHC) 30.2 gram/dL 33.0-36.0 RED CELL DISTRIBUTION WIDTH (test code=RDW) 18.8 % 11.6-16.2 RED CELL DISTRIBUTION WIDTH SD (test code=RDW-SD) 62.8 fL 37.0-51.0 PLATELET COUNT (test code=PLT) 80 K/mm3 150-450 MEAN PLATELET VOLUME (test code=MPV) 11.1 fL 6.7-11.0 NEUTROPHIL % (test code=NT%) 52.4 % 39.0-69.0 IMMATURE GRANULOCYTE % (test code=IG%) 0.4 % 0.0-5.0 LYMPHOCYTE % (test code=LY%) 29.3 % 25.0-55.0 MONOCYTE % (test code=MO%) 16.8 % 0.0-10.0 EOSINOPHIL % (test code=EO%) 0.4 % 0.0-5.0 BASOPHIL % (test code=BA%) 0.7 % 0.0-1.0 NUCLEATED RBC % (test code=NRBC%) 0.0 % 0-0 NEUTROPHIL # (test code=NT#) 1.47 K/mm3 1.8-7.7 IMMATURE GRANULOCYTE # (test code=IG#) 0.01 x10 3/uL 0-0.03 LYMPHOCYTE # (test code=LY#) 0.82 K/mm3 1.0-5.0 MONOCYTE # (test code=MO#) 0.47 K/mm3 0-0.8 EOSINOPHIL # (test code=EO#) 0.01 K/mm3 0.0-0.5 BASOPHIL # (test code=BA#) 0.02 K/mm3 0.0-0.2 NUCLEATED RBC # (test code=NRBC#) 0.00 K/mm3 0.0-0.1 MANUAL DIFF REQUIRED (test code=MDIFF) NO, ONLY SCAN NEEDED DIFFERENTIAL [id number] 05:44:00* Test Item Value Reference Range Comments STAIN ACCEPTABILITY (test code=STN ACCEPTABLE) CABOT RINGS (test code=CAB) MORPHOLOGY COMMENT (test code=MOC) PLATELET ESTIMATE (test code=PLTEST) PLATELET MORPHOLOGY (test code=PLTMORPH) [id number] 20:59:00* Test Item Value Reference Range Comments GLUBED (test code=GLUBED) 125 mg/dL 74-106 Performed by certified paper core machine operator at [facility] [id number] 16:43:00* Test Item Value Reference Range Comments GLUBED (test code=GLUBED) 162 mg/dL 74-106 Performed by certified paper core machine operator at [facility] [id number] 11:57:00* Test Item Value Reference Range Comments GLUBED (test code=GLUBED) 162 mg/dL 74-106 Performed by certified paper core machine operator at [facility] CBC W/AUTO [id number] 08:43:00* Test Item Value Reference Range Comments WHITE BLOOD CELL (test code=WBC) 2.7 K/mm3 4.5-12.5 RED BLOOD CELL (test code=RBC) 2.54 mill/mm3 3.7-5.2 HEMOGLOBIN (test code=HGB) 7.4 gram/dL 11.5-15.5 HEMATOCRIT (test code=HCT) 23.2 % 36.0-46.0 MEAN CELL VOLUME (test code=MCV) 91.3 fL 80-98 MEAN CELL HGB (test code=MCH) 29.1 picogram 27.0-33.0 MEAN CELL HGB CONCETRATION (test code=MCHC) 31.9 gram/dL 33.0-36.0 RED CELL DISTRIBUTION WIDTH (test code=RDW) 19.2 % 11.6-16.2 RED CELL DISTRIBUTION WIDTH SD (test code=RDW-SD) 63.5 fL 37.0-51.0 PLATELET COUNT (test code=PLT) 86 K/mm3 150-450 RESULT VERIFIED BY REPEAT ANALYSIS MEAN PLATELET VOLUME (test code=MPV) 11.4 fL 6.7-11.0 NEUTROPHIL % (test code=NT%) 53.6 % 39.0-69.0 IMMATURE GRANULOCYTE % (test code=IG%) 0.4 % 0.0-5.0 LYMPHOCYTE % (test code=LY%) 32.5 % 25.0-55.0 MONOCYTE % (test code=MO%) 12.4 % 0.0-10.0 EOSINOPHIL % (test code=EO%) 0.0 % 0.0-5.0 BASOPHIL % (test code=BA%) 1.1 % 0.0-1.0 NUCLEATED RBC % (test code=NRBC%) 0.0 % 0-0 NEUTROPHIL # (test code=NT#) 1.47 K/mm3 1.8-7.7 IMMATURE GRANULOCYTE # (test code=IG#) 0.01 x10 3/uL 0-0.03 LYMPHOCYTE # (test code=LY#) 0.89 K/mm3 1.0-5.0 MONOCYTE # (test code=MO#) 0.34 K/mm3 0-0.8 EOSINOPHIL # (test code=EO#) 0.00 K/mm3 0.0-0.5 BASOPHIL # (test code=BA#) 0.03 K/mm3 0.0-0.2 NUCLEATED RBC # (test code=NRBC#) 0.00 K/mm3 0.0-0.1 MANUAL DIFF REQUIRED (test code=MDIFF) NO, ONLY SCAN NEEDED DIFFERENTIAL [id number] 08:43:00* Test Item Value Reference Range Comments STAIN ACCEPTABILITY (test code=STN ACCEPTABLE) STAIN ACCEPTABLE POLYCHROMASIA (test code=POLC) 1+ ANISOCYTOSIS (test code=ANISO) 1+ MACROCYTOSIS (test code=MACR) 1+ PLATELET ESTIMATE (test code=PLTEST) DECREASED PLATELET MORPHOLOGY (test code=PLTMORPH) NORMAL [id number] 08:23:00* Test Item Value Reference Range Comments GLUBED (test code=GLUBED) 129 mg/dL 74-106 Performed by certified paper core machine operator at [facility] [id number] 08:06:00* Test Item Value Reference Range Comments GLUBED (test code=GLUBED) 125 mg/dL 74-106 Performed by certified paper core machine operator at [facility] CBC W/AUTO [id number] 07:35:00* Test Item Value Reference Range Comments WHITE BLOOD CELL (test code=WBC) 2.7 K/mm3 4.5-12.5 RED BLOOD CELL (test code=RBC) 2.54 mill/mm3 3.7-5.2 HEMOGLOBIN (test code=HGB) 7.4 gram/dL 11.5-15.5 HEMATOCRIT (test code=HCT) 23.2 % 36.0-46.0 MEAN CELL VOLUME (test code=MCV) 91.3 fL 80-98 MEAN CELL HGB (test code=MCH) 29.1 picogram 27.0-33.0 MEAN CELL HGB CONCETRATION (test code=MCHC) 31.9 gram/dL 33.0-36.0 RED CELL DISTRIBUTION WIDTH (test code=RDW) 19.2 % 11.6-16.2 RED CELL DISTRIBUTION WIDTH SD (test code=RDW-SD) 63.5 fL 37.0-51.0 PLATELET COUNT (test code=PLT) 86 K/mm3 150-450 RESULT VERIFIED BY REPEAT ANALYSIS MEAN PLATELET VOLUME (test code=MPV) 11.4 fL 6.7-11.0 NEUTROPHIL % (test code=NT%) 53.6 % 39.0-69.0 IMMATURE GRANULOCYTE % (test code=IG%) 0.4 % 0.0-5.0 LYMPHOCYTE % (test code=LY%) 32.5 % 25.0-55.0 MONOCYTE % (test code=MO%) 12.4 % 0.0-10.0 EOSINOPHIL % (test code=EO%) 0.0 % 0.0-5.0 BASOPHIL % (test code=BA%) 1.1 % 0.0-1.0 NUCLEATED RBC % (test code=NRBC%) 0.0 % 0-0 NEUTROPHIL # (test code=NT#) 1.47 K/mm3 1.8-7.7 IMMATURE GRANULOCYTE # (test code=IG#) 0.01 x10 3/uL 0-0.03 LYMPHOCYTE # (test code=LY#) 0.89 K/mm3 1.0-5.0 MONOCYTE # (test code=MO#) 0.34 K/mm3 0-0.8 EOSINOPHIL # (test code=EO#) 0.00 K/mm3 0.0-0.5 BASOPHIL # (test code=BA#) 0.03 K/mm3 0.0-0.2 NUCLEATED RBC # (test code=NRBC#) 0.00 K/mm3 0.0-0.1 MANUAL DIFF REQUIRED (test code=MDIFF) NO, ONLY SCAN NEEDED DIFFERENTIAL [id number] 07:35:00* Test Item Value Reference Range Comments STAIN ACCEPTABILITY (test code=STN ACCEPTABLE) CABOT RINGS (test code=CAB) MORPHOLOGY COMMENT (test code=MOC) PLATELET ESTIMATE (test code=PLTEST) PLATELET MORPHOLOGY (test code=PLTMORPH) CBC W/AUTO [id number] 07:35:00* Test Item Value Reference Range Comments WHITE BLOOD CELL (test code=WBC) 2.7 K/mm3 4.5-12.5 RED BLOOD CELL (test code=RBC) 2.54 mill/mm3 3.7-5.2 HEMOGLOBIN (test code=HGB) 7.4 gram/dL 11.5-15.5 HEMATOCRIT (test code=HCT) 23.2 % 36.0-46.0 MEAN CELL VOLUME (test code=MCV) 91.3 fL 80-98 MEAN CELL HGB (test code=MCH) 29.1 picogram 27.0-33.0 MEAN CELL HGB CONCETRATION (test code=MCHC) 31.9 gram/dL 33.0-36.0 RED CELL DISTRIBUTION WIDTH (test code=RDW) 19.2 % 11.6-16.2 RED CELL DISTRIBUTION WIDTH SD (test code=RDW-SD) 63.5 fL 37.0-51.0 PLATELET COUNT (test code=PLT) 86 K/mm3 150-450 RESULT VERIFIED BY REPEAT ANALYSIS MEAN PLATELET VOLUME (test code=MPV) 11.4 fL 6.7-11.0 NEUTROPHIL % (test code=NT%) 53.6 % 39.0-69.0 IMMATURE GRANULOCYTE % (test code=IG%) 0.4 % 0.0-5.0 LYMPHOCYTE % (test code=LY%) 32.5 % 25.0-55.0 MONOCYTE % (test code=MO%) 12.4 % 0.0-10.0 EOSINOPHIL % (test code=EO%) 0.0 % 0.0-5.0 BASOPHIL % (test code=BA%) 1.1 % 0.0-1.0 NUCLEATED RBC % (test code=NRBC%) 0.0 % 0-0 NEUTROPHIL # (test code=NT#) 1.47 K/mm3 1.8-7.7 IMMATURE GRANULOCYTE # (test code=IG#) 0.01 x10 3/uL 0-0.03 LYMPHOCYTE # (test code=LY#) 0.89 K/mm3 1.0-5.0 MONOCYTE # (test code=MO#) 0.34 K/mm3 0-0.8 EOSINOPHIL # (test code=EO#) 0.00 K/mm3 0.0-0.5 BASOPHIL # (test code=BA#) 0.03 K/mm3 0.0-0.2 NUCLEATED RBC # (test code=NRBC#) 0.00 K/mm3 0.0-0.1 MANUAL DIFF REQUIRED (test code=MDIFF) NO, ONLY SCAN NEEDED DIFFERENTIAL [id number] 07:35:00* Test Item Value Reference Range Comments STAIN ACCEPTABILITY (test code=STN ACCEPTABLE) CABOT RINGS (test code=CAB) MORPHOLOGY COMMENT (test code=MOC) PLATELET ESTIMATE (test code=PLTEST) PLATELET MORPHOLOGY (test code=PLTMORPH) CBC W/AUTO [id number] 07:35:00* Test Item Value Reference Range Comments WHITE BLOOD CELL (test code=WBC) 2.7 K/mm3 4.5-12.5 RED BLOOD CELL (test code=RBC) 2.54 mill/mm3 3.7-5.2 HEMOGLOBIN (test code=HGB) 7.4 gram/dL 11.5-15.5 HEMATOCRIT (test code=HCT) 23.2 % 36.0-46.0 MEAN CELL VOLUME (test code=MCV) 91.3 fL 80-98 MEAN CELL HGB (test code=MCH) 29.1 picogram 27.0-33.0 MEAN CELL HGB CONCETRATION (test code=MCHC) 31.9 gram/dL 33.0-36.0 RED CELL DISTRIBUTION WIDTH (test code=RDW) 19.2 % 11.6-16.2 RED CELL DISTRIBUTION WIDTH SD (test code=RDW-SD) 63.5 fL 37.0-51.0 PLATELET COUNT (test code=PLT) 86 K/mm3 150-450 RESULT VERIFIED BY REPEAT ANALYSIS MEAN PLATELET VOLUME (test code=MPV) 11.4 fL 6.7-11.0 NEUTROPHIL % (test code=NT%) 53.6 % 39.0-69.0 IMMATURE GRANULOCYTE % (test code=IG%) 0.4 % 0.0-5.0 LYMPHOCYTE % (test code=LY%) 32.5 % 25.0-55.0 MONOCYTE % (test code=MO%) 12.4 % 0.0-10.0 EOSINOPHIL % (test code=EO%) 0.0 % 0.0-5.0 BASOPHIL % (test code=BA%) 1.1 % 0.0-1.0 NUCLEATED RBC % (test code=NRBC%) 0.0 % 0-0 NEUTROPHIL # (test code=NT#) 1.47 K/mm3 1.8-7.7 IMMATURE GRANULOCYTE # (test code=IG#) 0.01 x10 3/uL 0-0.03 LYMPHOCYTE # (test code=LY#) 0.89 K/mm3 1.0-5.0 MONOCYTE # (test code=MO#) 0.34 K/mm3 0-0.8 EOSINOPHIL # (test code=EO#) 0.00 K/mm3 0.0-0.5 BASOPHIL # (test code=BA#) 0.03 K/mm3 0.0-0.2 NUCLEATED RBC # (test code=NRBC#) 0.00 K/mm3 0.0-0.1 MANUAL DIFF REQUIRED (test code=MDIFF) NO, ONLY SCAN NEEDED DIFFERENTIAL [id number] 07:35:00* Test Item Value Reference Range Comments STAIN ACCEPTABILITY (test code=STN ACCEPTABLE) MORPHOLOGY COMMENT (test code=MOC) PLATELET ESTIMATE (test code=PLTEST) PLATELET MORPHOLOGY (test code=PLTMORPH) CBC W/AUTO [id number] 07:35:00* Test Item Value Reference Range Comments WHITE BLOOD CELL (test code=WBC) 2.7 K/mm3 4.5-12.5 RED BLOOD CELL (test code=RBC) 2.54 mill/mm3 3.7-5.2 HEMOGLOBIN (test code=HGB) 7.4 gram/dL 11.5-15.5 HEMATOCRIT (test code=HCT) 23.2 % 36.0-46.0 MEAN CELL VOLUME (test code=MCV) 91.3 fL 80-98 MEAN CELL HGB (test code=MCH) 29.1 picogram 27.0-33.0 MEAN CELL HGB CONCETRATION (test code=MCHC) 31.9 gram/dL 33.0-36.0 RED CELL DISTRIBUTION WIDTH (test code=RDW) 19.2 % 11.6-16.2 RED CELL DISTRIBUTION WIDTH SD (test code=RDW-SD) 63.5 fL 37.0-51.0 PLATELET COUNT (test code=PLT) 86 K/mm3 150-450 RESULT VERIFIED BY REPEAT ANALYSIS MEAN PLATELET VOLUME (test code=MPV) 11.4 fL 6.7-11.0 NEUTROPHIL % (test code=NT%) 53.6 % 39.0-69.0 IMMATURE GRANULOCYTE % (test code=IG%) 0.4 % 0.0-5.0 LYMPHOCYTE % (test code=LY%) 32.5 % 25.0-55.0 MONOCYTE % (test code=MO%) 12.4 % 0.0-10.0 EOSINOPHIL % (test code=EO%) 0.0 % 0.0-5.0 BASOPHIL % (test code=BA%) 1.1 % 0.0-1.0 NUCLEATED RBC % (test code=NRBC%) 0.0 % 0-0 NEUTROPHIL # (test code=NT#) 1.47 K/mm3 1.8-7.7 IMMATURE GRANULOCYTE # (test code=IG#) 0.01 x10 3/uL 0-0.03 LYMPHOCYTE # (test code=LY#) 0.89 K/mm3 1.0-5.0 MONOCYTE # (test code=MO#) 0.34 K/mm3 0-0.8 EOSINOPHIL # (test code=EO#) 0.00 K/mm3 0.0-0.5 BASOPHIL # (test code=BA#) 0.03 K/mm3 0.0-0.2 NUCLEATED RBC # (test code=NRBC#) 0.00 K/mm3 0.0-0.1 MANUAL DIFF REQUIRED (test code=MDIFF) NO, ONLY SCAN NEEDED DIFFERENTIAL [id number] 07:35:00* Test Item Value Reference Range Comments STAIN ACCEPTABILITY (test code=STN ACCEPTABLE) CABOT RINGS (test code=CAB) MORPHOLOGY COMMENT (test code=MOC) PLATELET ESTIMATE (test code=PLTEST) PLATELET MORPHOLOGY (test code=PLTMORPH) [id number] 20:37:00* Test Item Value Reference Range Comments GLUBED (test code=GLUBED) 140 mg/dL 74-106 Performed by certified paper core machine operator at [facility] [id number] 12:48:00* Test Item Value Reference Range Comments GLUBED (test code=GLUBED) 116 mg/dL 74-106 Performed by certified paper core machine operator at [facility] CBC W/AUTO [id number] 12:16:00* Test Item Value Reference Range Comments WHITE BLOOD CELL (test code=WBC) 2.8 K/mm3 4.5-12.5 RED BLOOD CELL (test code=RBC) 2.73 mill/mm3 3.7-5.2 HEMOGLOBIN (test code=HGB) 7.9 gram/dL 11.5-15.5 HEMATOCRIT (test code=HCT) 25.2 % 36.0-46.0 MEAN CELL VOLUME (test code=MCV) 92.3 fL 80-98 MEAN CELL HGB (test code=MCH) 28.9 picogram 27.0-33.0 MEAN CELL HGB CONCETRATION (test code=MCHC) 31.3 gram/dL 33.0-36.0 RED CELL DISTRIBUTION WIDTH (test code=RDW) 19.5 % 11.6-16.2 RED CELL DISTRIBUTION WIDTH SD (test code=RDW-SD) 65.2 fL 37.0-51.0 PLATELET COUNT (test code=PLT) 61 K/mm3 150-450 RESULT VERIFIED BY REPEAT ANALYSIS MEAN PLATELET VOLUME (test code=MPV) 11.3 fL 6.7-11.0 NEUTROPHIL % (test code=NT%) 64.6 % 39.0-69.0 IMMATURE GRANULOCYTE % (test code=IG%) 0.0 % 0.0-5.0 LYMPHOCYTE % (test code=LY%) 22.4 % 25.0-55.0 MONOCYTE % (test code=MO%) 11.9 % 0.0-10.0 EOSINOPHIL % (test code=EO%) 0.4 % 0.0-5.0 BASOPHIL % (test code=BA%) 0.7 % 0.0-1.0 NUCLEATED RBC % (test code=NRBC%) 0.0 % 0-0 NEUTROPHIL # (test code=NT#) 1.79 K/mm3 1.8-7.7 IMMATURE GRANULOCYTE # (test code=IG#) 0.00 x10 3/uL 0-0.03 LYMPHOCYTE # (test code=LY#) 0.62 K/mm3 1.0-5.0 MONOCYTE # (test code=MO#) 0.33 K/mm3 0-0.8 EOSINOPHIL # (test code=EO#) 0.01 K/mm3 0.0-0.5 BASOPHIL # (test code=BA#) 0.02 K/mm3 0.0-0.2 NUCLEATED RBC # (test code=NRBC#) 0.00 K/mm3 0.0-0.1 MANUAL DIFF REQUIRED (test code=MDIFF) NO, ONLY SCAN NEEDED 04/08/18 0803DIFFERENTIAL [id number] 12:16:00* Test Item Value Reference Range Comments STAIN ACCEPTABILITY (test code=STN ACCEPTABLE) STAIN ACCEPTABLE POLYCHROMASIA (test code=POLC) 1+ PLATELET ESTIMATE (test code=PLTEST) DECREASED PLATELET MORPHOLOGY (test code=PLTMORPH) NORMAL 04/08/18 [id number] 11:52:00* Test Item Value Reference Range Comments GLUBED (test code=GLUBED) 91 mg/dL 74-106 Performed by certified paper core machine operator at [facility] BASIC METABOLIC [id number] 11:13:00* Test Item Value Reference Range Comments SODIUM (test code=NA) 139 mmol/L 136-145 POTASSIUM (test code=K) 4.9 mmol/L 3.5-5.1 CHLORIDE (test code=CL) 108.0 mmol/L 98-107 CARBON DIOXIDE (test code=CO2) 25.0 mmol/L 21-32 ANION GAP (test code=GAP) 10.9 10-20 GLUCOSE (test code=GLU) 95 mg/dL 74-106 BLOOD UREA NITROGEN (test code=BUN) 17 mg/dL 7-18 GLOMERULAR FILTRATION RATE (test code=GFR) > 60 mL/min >=60 Estimated GFR by using Modified MDRD formula.Chronic kidney disease is defined as either kidney damageor GFR <60 mL/min/1.73 m2 for >3 months. CREATININE (test code=CREAT) 0.80 mg/dL 0.55-1.02 Note change in reference range due to change in reagent. BUN/CREATININE RATIO (test code=BUN/CREA) 20.4 10-20 CALCIUM (test code=CA) 7.7 mg/dL 8.5-10.1 04/08/18 0802CBC W/AUTO [id number] 10:31:00* Test Item Value Reference Range Comments WHITE BLOOD CELL (test code=WBC) 2.8 K/mm3 4.5-12.5 RED BLOOD CELL (test code=RBC) 2.73 mill/mm3 3.7-5.2 HEMOGLOBIN (test code=HGB) 7.9 gram/dL 11.5-15.5 HEMATOCRIT (test code=HCT) 25.2 % 36.0-46.0 MEAN CELL VOLUME (test code=MCV) 92.3 fL 80-98 MEAN CELL HGB (test code=MCH) 28.9 picogram 27.0-33.0 MEAN CELL HGB CONCETRATION (test code=MCHC) 31.3 gram/dL 33.0-36.0 RED CELL DISTRIBUTION WIDTH (test code=RDW) 19.5 % 11.6-16.2 RED CELL DISTRIBUTION WIDTH SD (test code=RDW-SD) 65.2 fL 37.0-51.0 PLATELET COUNT (test code=PLT) 61 K/mm3 150-450 RESULT VERIFIED BY REPEAT ANALYSIS MEAN PLATELET VOLUME (test code=MPV) 11.3 fL 6.7-11.0 NEUTROPHIL % (test code=NT%) 64.6 % 39.0-69.0 IMMATURE GRANULOCYTE % (test code=IG%) 0.0 % 0.0-5.0 LYMPHOCYTE % (test code=LY%) 22.4 % 25.0-55.0 MONOCYTE % (test code=MO%) 11.9 % 0.0-10.0 EOSINOPHIL % (test code=EO%) 0.4 % 0.0-5.0 BASOPHIL % (test code=BA%) 0.7 % 0.0-1.0 NUCLEATED RBC % (test code=NRBC%) 0.0 % 0-0 NEUTROPHIL # (test code=NT#) 1.79 K/mm3 1.8-7.7 IMMATURE GRANULOCYTE # (test code=IG#) 0.00 x10 3/uL 0-0.03 LYMPHOCYTE # (test code=LY#) 0.62 K/mm3 1.0-5.0 MONOCYTE # (test code=MO#) 0.33 K/mm3 0-0.8 EOSINOPHIL # (test code=EO#) 0.01 K/mm3 0.0-0.5 BASOPHIL # (test code=BA#) 0.02 K/mm3 0.0-0.2 NUCLEATED RBC # (test code=NRBC#) 0.00 K/mm3 0.0-0.1 MANUAL DIFF REQUIRED (test code=MDIFF) NO, ONLY SCAN NEEDED 04/08/18802DIFFERENTIAL [id number] 10:31:00* Test Item Value Reference Range Comments STAIN ACCEPTABILITY (test code=STN ACCEPTABLE) CABOT RINGS (test code=CAB) MORPHOLOGY COMMENT (test code=MOC) PLATELET ESTIMATE (test code=PLTEST) PLATELET MORPHOLOGY (test code=PLTMORPH) 04/08/18 0803CBC W/AUTO [id number] 10:31:00* Test Item Value Reference Range Comments WHITE BLOOD CELL (test code=WBC) 2.8 K/mm3 4.5-12.5 RED BLOOD CELL (test code=RBC) 2.73 mill/mm3 3.7-5.2 HEMOGLOBIN (test code=HGB) 7.9 gram/dL 11.5-15.5 HEMATOCRIT (test code=HCT) 25.2 % 36.0-46.0 MEAN CELL VOLUME (test code=MCV) 92.3 fL 80-98 MEAN CELL HGB (test code=MCH) 28.9 picogram 27.0-33.0 MEAN CELL HGB CONCETRATION (test code=MCHC) 31.3 gram/dL 33.0-36.0 RED CELL DISTRIBUTION WIDTH (test code=RDW) 19.5 % 11.6-16.2 RED CELL DISTRIBUTION WIDTH SD (test code=RDW-SD) 65.2 fL 37.0-51.0 PLATELET COUNT (test code=PLT) 61 K/mm3 150-450 RESULT VERIFIED BY REPEAT ANALYSIS MEAN PLATELET VOLUME (test code=MPV) 11.3 fL 6.7-11.0 NEUTROPHIL % (test code=NT%) 64.6 % 39.0-69.0 IMMATURE GRANULOCYTE % (test code=IG%) 0.0 % 0.0-5.0 LYMPHOCYTE % (test code=LY%) 22.4 % 25.0-55.0 MONOCYTE % (test code=MO%) 11.9 % 0.0-10.0 EOSINOPHIL % (test code=EO%) 0.4 % 0.0-5.0 BASOPHIL % (test code=BA%) 0.7 % 0.0-1.0 NUCLEATED RBC % (test code=NRBC%) 0.0 % 0-0 NEUTROPHIL # (test code=NT#) 1.79 K/mm3 1.8-7.7 IMMATURE GRANULOCYTE # (test code=IG#) 0.00 x10 3/uL 0-0.03 LYMPHOCYTE # (test code=LY#) 0.62 K/mm3 1.0-5.0 MONOCYTE # (test code=MO#) 0.33 K/mm3 0-0.8 EOSINOPHIL # (test code=EO#) 0.01 K/mm3 0.0-0.5 BASOPHIL # (test code=BA#) 0.02 K/mm3 0.0-0.2 NUCLEATED RBC # (test code=NRBC#) 0.00 K/mm3 0.0-0.1 MANUAL DIFF REQUIRED (test code=MDIFF) NO, ONLY SCAN NEEDED 04/08/18 0803DIFFERENTIAL [id number] 10:31:00* Test Item Value Reference Range Comments STAIN ACCEPTABILITY (test code=STN ACCEPTABLE) MORPHOLOGY COMMENT (test code=MOC) PLATELET ESTIMATE (test code=PLTEST) PLATELET MORPHOLOGY (test code=PLTMORPH) 04/08/18 0803CBC W/AUTO [id number] 10:31:00* Test Item Value Reference Range Comments WHITE BLOOD CELL (test code=WBC) 2.8 K/mm3 4.5-12.5 RED BLOOD CELL (test code=RBC) 2.73 mill/mm3 3.7-5.2 HEMOGLOBIN (test code=HGB) 7.9 gram/dL 11.5-15.5 HEMATOCRIT (test code=HCT) 25.2 % 36.0-46.0 MEAN CELL VOLUME (test code=MCV) 92.3 fL 80-98 MEAN CELL HGB (test code=MCH) 28.9 picogram 27.0-33.0 MEAN CELL HGB CONCETRATION (test code=MCHC) 31.3 gram/dL 33.0-36.0 RED CELL DISTRIBUTION WIDTH (test code=RDW) 19.5 % 11.6-16.2 RED CELL DISTRIBUTION WIDTH SD (test code=RDW-SD) 65.2 fL 37.0-51.0 PLATELET COUNT (test code=PLT) 61 K/mm3 150-450 RESULT VERIFIED BY REPEAT ANALYSIS MEAN PLATELET VOLUME (test code=MPV) 11.3 fL 6.7-11.0 NEUTROPHIL % (test code=NT%) 64.6 % 39.0-69.0 IMMATURE GRANULOCYTE % (test code=IG%) 0.0 % 0.0-5.0 LYMPHOCYTE % (test code=LY%) 22.4 % 25.0-55.0 MONOCYTE % (test code=MO%) 11.9 % 0.0-10.0 EOSINOPHIL % (test code=EO%) 0.4 % 0.0-5.0 BASOPHIL % (test code=BA%) 0.7 % 0.0-1.0 NUCLEATED RBC % (test code=NRBC%) 0.0 % 0-0 NEUTROPHIL # (test code=NT#) 1.79 K/mm3 1.8-7.7 IMMATURE GRANULOCYTE # (test code=IG#) 0.00 x10 3/uL 0-0.03 LYMPHOCYTE # (test code=LY#) 0.62 K/mm3 1.0-5.0 MONOCYTE # (test code=MO#) 0.33 K/mm3 0-0.8 EOSINOPHIL # (test code=EO#) 0.01 K/mm3 0.0-0.5 BASOPHIL # (test code=BA#) 0.02 K/mm3 0.0-0.2 NUCLEATED RBC # (test code=NRBC#) 0.00 K/mm3 0.0-0.1 MANUAL DIFF REQUIRED (test code=MDIFF) NO, ONLY SCAN NEEDED 04/08/18 0803DIFFERENTIAL [id number] 10:31:00* Test Item Value Reference Range Comments STAIN ACCEPTABILITY (test code=STN ACCEPTABLE) MORPHOLOGY COMMENT (test code=MOC) PLATELET ESTIMATE (test code=PLTEST) PLATELET MORPHOLOGY (test code=PLTMORPH) 04/08/18 0803CBC W/AUTO [id number] 10:31:00* Test Item Value Reference Range Comments WHITE BLOOD CELL (test code=WBC) 2.8 K/mm3 4.5-12.5 RED BLOOD CELL (test code=RBC) 2.73 mill/mm3 3.7-5.2 HEMOGLOBIN (test code=HGB) 7.9 gram/dL 11.5-15.5 HEMATOCRIT (test code=HCT) 25.2 % 36.0-46.0 MEAN CELL VOLUME (test code=MCV) 92.3 fL 80-98 MEAN CELL HGB (test code=MCH) 28.9 picogram 27.0-33.0 MEAN CELL HGB CONCETRATION (test code=MCHC) 31.3 gram/dL 33.0-36.0 RED CELL DISTRIBUTION WIDTH (test code=RDW) 19.5 % 11.6-16.2 RED CELL DISTRIBUTION WIDTH SD (test code=RDW-SD) 65.2 fL 37.0-51.0 PLATELET COUNT (test code=PLT) 61 K/mm3 150-450 RESULT VERIFIED BY REPEAT ANALYSIS MEAN PLATELET VOLUME (test code=MPV) 11.3 fL 6.7-11.0 NEUTROPHIL % (test code=NT%) 64.6 % 39.0-69.0 IMMATURE GRANULOCYTE % (test code=IG%) 0.0 % 0.0-5.0 LYMPHOCYTE % (test code=LY%) 22.4 % 25.0-55.0 MONOCYTE % (test code=MO%) 11.9 % 0.0-10.0 EOSINOPHIL % (test code=EO%) 0.4 % 0.0-5.0 BASOPHIL % (test code=BA%) 0.7 % 0.0-1.0 NUCLEATED RBC % (test code=NRBC%) 0.0 % 0-0 NEUTROPHIL # (test code=NT#) 1.79 K/mm3 1.8-7.7 IMMATURE GRANULOCYTE # (test code=IG#) 0.00 x10 3/uL 0-0.03 LYMPHOCYTE # (test code=LY#) 0.62 K/mm3 1.0-5.0 MONOCYTE # (test code=MO#) 0.33 K/mm3 0-0.8 EOSINOPHIL # (test code=EO#) 0.01 K/mm3 0.0-0.5 BASOPHIL # (test code=BA#) 0.02 K/mm3 0.0-0.2 NUCLEATED RBC # (test code=NRBC#) 0.00 K/mm3 0.0-0.1 MANUAL DIFF REQUIRED (test code=MDIFF) NO, ONLY SCAN NEEDED 04/08/18 0803DIFFERENTIAL [id number] 10:31:00* Test Item Value Reference Range Comments STAIN ACCEPTABILITY (test code=STN ACCEPTABLE) CABOT RINGS (test code=CAB) MORPHOLOGY COMMENT (test code=MOC) PLATELET ESTIMATE (test code=PLTEST) PLATELET MORPHOLOGY (test code=PLTMORPH) 04/08/18 0803HGB [id number] 04:10:00* Test Item Value Reference Range Comments HEMOGLOBIN (test code=HGB) 6.6 gram/dL 11.5-15.5 HEMATOCRIT (test code=HCT) 21.9 % 36.0-46.0 Results called to [id number] by ORACIO 04/08/18 0410Critical results verified and read back by Nurse? Y [id number] METABOLIC [id number] 16:10:00* Test Item Value Reference Range Comments SODIUM (test code=NA) 138 mmol/L 136-145 POTASSIUM (test code=K) 5.3 mmol/L 3.5-5.1 CHLORIDE (test code=CL) 106.0 mmol/L 98-107 CARBON DIOXIDE (test code=CO2) 26.0 mmol/L 21-32 ANION GAP (test code=GAP) 11.3 10-20 GLUCOSE (test code=GLU) 99 mg/dL 74-106 BLOOD UREA NITROGEN (test code=BUN) 19 mg/dL 7-18 GLOMERULAR FILTRATION RATE (test code=GFR) > 60 mL/min >=60 Estimated GFR by using Modified MDRD formula.Chronic kidney disease is defined as either kidney damageor GFR <60 mL/min/1.73 m2 for >3 months. CREATININE (test code=CREAT) 0.90 mg/dL 0.55-1.02 Note change in reference range due to change in reagent. BUN/CREATININE RATIO (test code=BUN/CREA) 21.6 10-20 CALCIUM (test code=CA) 8.1 mg/dL 8.5-10.1 HEPATIC FUNCTION [id number] 16:10:00* Test Item Value Reference Range Comments TOTAL PROTEIN (test code=PROT) 7.4 gram/dL 6.4-8.2 ALBUMIN (test code=ALB) 1.8 g/dL 3.4-5.0 GLOBULIN (test code=GLOB) 5.6 gram/dL 2.7-4.2 ALBUMIN/GLOBULIN RATIO (test code=A/G) 0.3 0.75-1.50 BILIRUBIN TOTAL (test code=BILT) 1.00 mg/dL 0.0-1.0 BILIRUBIN DIRECT (test code=BILD) 0.36 mg/dL 0.0-0.20 SGOT/AST (test code=AST) 43 IUnit/L 15-37 SGPT/ALT (test code=ALT) 18 IUnit/L 12-78 ALKALINE PHOSPHATASE TOTAL (test code=ALKP) 147 IUnit/L 45-117 Note change in reference range due to change in reagent. [id number] 16:10:00* Test Item Value Reference Range Comments TROPONIN-I (test code=TROPI) <0.015 ng/mL 0-0.045 BASIC METABOLIC [id number] 15:55:00* Test Item Value Reference Range Comments SODIUM (test code=NA) 138 mmol/L 136-145 POTASSIUM (test code=K) 5.3 mmol/L 3.5-5.1 CHLORIDE (test code=CL) 106.0 mmol/L 98-107 CARBON DIOXIDE (test code=CO2) mmol/L 21-32 ANION GAP (test code=GAP) 10-20 GLUCOSE (test code=GLU) mg/dL 74-106 BLOOD UREA NITROGEN (test code=BUN) mg/dL 7-18 GLOMERULAR FILTRATION RATE (test code=GFR) mL/min >=60 CREATININE (test code=CREAT) mg/dL 0.55-1.02 BUN/CREATININE RATIO (test code=BUN/CREA) 10-20 CALCIUM (test code=CA) mg/dL 8.5-10.1 HEPATIC FUNCTION [id number] 15:55:00* Test Item Value Reference Range Comments TOTAL PROTEIN (test code=PROT) gram/dL 6.4-8.2 ALBUMIN (test code=ALB) g/dL 3.4-5.0 GLOBULIN (test code=GLOB) gram/dL 2.7-4.2 ALBUMIN/GLOBULIN RATIO (test code=A/G) 0.75-1.50 BILIRUBIN TOTAL (test code=BILT) mg/dL 0.0-1.0 BILIRUBIN DIRECT (test code=BILD) mg/dL 0.0-0.20 SGOT/AST (test code=AST) IUnit/L 15-37 SGPT/ALT (test code=ALT) IUnit/L 12-78 ALKALINE PHOSPHATASE TOTAL (test code=ALKP) IUnit/L 45-117 [id number] 15:55:00* Test Item Value Reference Range Comments TROPONIN-I (test code=TROPI) ng/mL 0-0.045 PROTHROMBIN [id number] 14:08:00* Test Item Value Reference Range Comments PROTHROMBIN TIME PATIENT (test code=PTP) 12.2 seconds 9.0-14.0 INTERNATIONAL NORMAL RATIO (test code=INR) 1.0 0.8-1.2 The therapeutic range for oral anticoagulant therapy formost indications is an international normalized ratio (INR)of between 2.0 and 3.0. The recommended therapeutic INRrange for various clinical situations is listed below: Clinical Situation INR range Pulmonary e mbolism treatment (2.0-3.0)Venous thrombosis treatmentVenous thrombosis prophylaxis (high risk surgery)Prevention of systemic embolism from: Acute myocardial infarction Valvular heart disease Atrial fibrillation Mechanical prosthetic heart valves (2.5-3.5) IS PATIENT ON ANTICOAGULANTS? NTHROMBOPLASTIN TIME [id number] 14:08:00* Test Item Value Reference Range Comments THROMBOPLASTIN TIME PARTIAL (test code=PTT) 22.3 seconds 25.0-36.5 IS PATIENT ON ANTICOAGULANTS? NCBC W/O [id number] 14:00:00* Test Item Value Reference Range Comments WHITE BLOOD CELL (test code=WBC) 3.1 K/mm3 4.5-12.5 RED BLOOD CELL (test code=RBC) 2.09 mill/mm3 3.7-5.2 HEMOGLOBIN (test code=HGB) 6.3 gram/dL 11.5-15.5 RESULT VERIFIED BY REPEAT ANALYSIS HEMATOCRIT (test code=HCT) 20.5 % 36.0-46.0 Results called to [id number] by MATTIE 04/07/18 1359Critical results verified and read back by Nurse? Y MEAN CELL VOLUME (test code=MCV) 98.1 fL 80-98 MEAN CELL HGB (test code=MCH) 30.1 picogram 27.0-33.0 MEAN CELL HGB CONCETRATION (test code=MCHC) 30.7 gram/dL 33.0-36.0 RED CELL DISTRIBUTION WIDTH (test code=RDW) 16.9 % 11.6-16.2 PLATELET COUNT (test code=PLT) 96 K/mm3 150-450 MEAN PLATELET VOLUME (test code=MPV) 11.4 fL 6.7-11.0 - XR CHEST 1 [id number] 13:37:00 FAX: Drew Muñoz DO [place]: St: PRE Name: ALEX LANDRUM [facility] : [birth year] Age/S: 67[facility]F [address] [facility]: [id number] Loc: [place] [address] Phys: Drew Muñoz DO Acct: [id number] Dis Date: Status: PRE ER PHONE #: [phone] Exam Date: 04/07/2018 1326 FAX #: [phone] Reason: CHEST PAIN EXAMS: CPT CODE: [id number] XR CHEST 1 V 60935 HISTORY: Chest pain. COMPARISON: March 22, 2018. No acute infiltrates, effusion or c ongestion is noted. Suboptimal inspiration. Dependent changes. Cardiomegaly. IMPRESSION: No acute infi ltrates, effusion or congestion. at 0621 Reported and signed by: Stuart Elias M.D. CC: Drew Muñoz DO Technologist: Inder YODER(R) Trnscrd Date/Time/By: 04/07/2018 (2107) : By: [email or web address] Orig Print D/T: S: 04/07/2018 (6633) PAGE 1 Signed Report SERUM [id number] 13:16:00* Test Item Value Reference Range Comments SERUM IRON (test code=IRON) 43 ug/dL 50-175 VITAMIN [id number] 13:16:00* Test Item Value Reference Range Comments VITAMIN B12 (test code=VITB12) 1015 pg/mL 193-986 FOLIC [id number] 13:16:00* Test Item Value Reference Range Comments FOLIC ACID (test code=FOL) 6.4 ng/mL 3.10-17.50 [id number] 13:16:00* Test Item Value Reference Range Comments FERRITIN (test code=NGUYỄN) 16 ng/mL 8-388 VITAMIN D 1,58-[id number] 13:16:00* Test Item Value Reference Range Comments VITAMIN D 1,25-DIHYDROXY (test cyit=TYEP237) 22.9 pg/mL 19.9-79.3 Performed At: [facility] [id number] Sanjai MD Ph:[phone] performed at: [facility] [address] [place] [address] [id number] 16:18:00* Test Item Value Reference Range Comments GLUBED (test code=GLUBED) 124 mg/dL 74-106 Performed by certified paper core machine operator at [facility] CBC W/AUTO [id number] 13:35:00* Test Item Value Reference Range Comments WHITE BLOOD CELL (test code=WBC) 2.2 K/mm3 4.5-12.5 RED BLOOD CELL (test code=RBC) 2.97 mill/mm3 3.7-5.2 HEMOGLOBIN (test code=HGB) 8.6 gram/dL 11.5-15.5 HEMATOCRIT (test code=HCT) 29.5 % 36.0-46.0 MEAN CELL VOLUME (test code=MCV) 99.3 fL 80-98 MEAN CELL HGB (test code=MCH) 29.0 picogram 27.0-33.0 MEAN CELL HGB CONCETRATION (test code=MCHC) 29.2 gram/dL 33.0-36.0 RED CELL DISTRIBUTION WIDTH (test code=RDW) 17.9 % 11.6-16.2 RED CELL DISTRIBUTION WIDTH SD (test code=RDW-SD) 64.3 fL 37.0-51.0 PLATELET COUNT (test code=PLT) 81 K/mm3 150-450 MEAN PLATELET VOLUME (test code=MPV) 11.7 fL 6.7-11.0 NEUTROPHIL % (test code=NT%) 53.6 % 39.0-69.0 IMMATURE GRANULOCYTE % (test code=IG%) 0.9 % 0.0-5.0 LYMPHOCYTE % (test code=LY%) 27.9 % 25.0-55.0 MONOCYTE % (test code=MO%) 16.7 % 0.0-10.0 EOSINOPHIL % (test code=EO%) 0.0 % 0.0-5.0 BASOPHIL % (test code=BA%) 0.9 % 0.0-1.0 NUCLEATED RBC % (test code=NRBC%) 0.0 % 0-0 NEUTROPHIL # (test code=NT#) 1.19 K/mm3 1.8-7.7 IMMATURE GRANULOCYTE # (test code=IG#) 0.02 x10 3/uL 0-0.03 LYMPHOCYTE # (test code=LY#) 0.62 K/mm3 1.0-5.0 MONOCYTE # (test code=MO#) 0.37 K/mm3 0-0.8 EOSINOPHIL # (test code=EO#) 0.00 K/mm3 0.0-0.5 BASOPHIL # (test code=BA#) 0.02 K/mm3 0.0-0.2 NUCLEATED RBC # (test code=NRBC#) 0.00 K/mm3 0.0-0.1 MANUAL DIFF REQUIRED (test code=MDIFF) NO, ONLY SCAN NEEDED DIFFERENTIAL [id number] 13:35:00* Test Item Value Reference Range Comments STAIN ACCEPTABILITY (test code=STN ACCEPTABLE) STAIN ACCEPTABLE POLYCHROMASIA (test code=POLC) 1+ HYPOCHROMIA (test code=HYPO) 1+ ANISOCYTOSIS (test code=ANISO) 1+ PLATELET ESTIMATE (test code=PLTEST) DECREASED PLATELET MORPHOLOGY (test code=PLTMORPH) NORMAL CBC W/AUTO [id number] 12:40:00* Test Item Value Reference Range Comments WHITE BLOOD CELL (test code=WBC) 2.2 K/mm3 4.5-12.5 RED BLOOD CELL (test code=RBC) 2.97 mill/mm3 3.7-5.2 HEMOGLOBIN (test code=HGB) 8.6 gram/dL 11.5-15.5 HEMATOCRIT (test code=HCT) 29.5 % 36.0-46.0 MEAN CELL VOLUME (test code=MCV) 99.3 fL 80-98 MEAN CELL HGB (test code=MCH) 29.0 picogram 27.0-33.0 MEAN CELL HGB CONCETRATION (test code=MCHC) 29.2 gram/dL 33.0-36.0 RED CELL DISTRIBUTION WIDTH (test code=RDW) 17.9 % 11.6-16.2 RED CELL DISTRIBUTION WIDTH SD (test code=RDW-SD) 64.3 fL 37.0-51.0 PLATELET COUNT (test code=PLT) 81 K/mm3 150-450 MEAN PLATELET VOLUME (test code=MPV) 11.7 fL 6.7-11.0 NEUTROPHIL % (test code=NT%) 53.6 % 39.0-69.0 IMMATURE GRANULOCYTE % (test code=IG%) 0.9 % 0.0-5.0 LYMPHOCYTE % (test code=LY%) 27.9 % 25.0-55.0 MONOCYTE % (test code=MO%) 16.7 % 0.0-10.0 EOSINOPHIL % (test code=EO%) 0.0 % 0.0-5.0 BASOPHIL % (test code=BA%) 0.9 % 0.0-1.0 NUCLEATED RBC % (test code=NRBC%) 0.0 % 0-0 NEUTROPHIL # (test code=NT#) 1.19 K/mm3 1.8-7.7 IMMATURE GRANULOCYTE # (test code=IG#) 0.02 x10 3/uL 0-0.03 LYMPHOCYTE # (test code=LY#) 0.62 K/mm3 1.0-5.0 MONOCYTE # (test code=MO#) 0.37 K/mm3 0-0.8 EOSINOPHIL # (test code=EO#) 0.00 K/mm3 0.0-0.5 BASOPHIL # (test code=BA#) 0.02 K/mm3 0.0-0.2 NUCLEATED RBC # (test code=NRBC#) 0.00 K/mm3 0.0-0.1 MANUAL DIFF REQUIRED (test code=MDIFF) NO, ONLY SCAN NEEDED DIFFERENTIAL [id number] 12:40:00* Test Item Value Reference Range Comments STAIN ACCEPTABILITY (test code=STN ACCEPTABLE) CABOT RINGS (test code=CAB) MORPHOLOGY COMMENT (test code=MOC) PLATELET ESTIMATE (test code=PLTEST) PLATELET MORPHOLOGY (test code=PLTMORPH) CBC W/AUTO [id number] 12:40:00* Test Item Value Reference Range Comments WHITE BLOOD CELL (test code=WBC) 2.2 K/mm3 4.5-12.5 RED BLOOD CELL (test code=RBC) 2.97 mill/mm3 3.7-5.2 HEMOGLOBIN (test code=HGB) 8.6 gram/dL 11.5-15.5 HEMATOCRIT (test code=HCT) 29.5 % 36.0-46.0 MEAN CELL VOLUME (test code=MCV) 99.3 fL 80-98 MEAN CELL HGB (test code=MCH) 29.0 picogram 27.0-33.0 MEAN CELL HGB CONCETRATION (test code=MCHC) 29.2 gram/dL 33.0-36.0 RED CELL DISTRIBUTION WIDTH (test code=RDW) 17.9 % 11.6-16.2 RED CELL DISTRIBUTION WIDTH SD (test code=RDW-SD) 64.3 fL 37.0-51.0 PLATELET COUNT (test code=PLT) 81 K/mm3 150-450 MEAN PLATELET VOLUME (test code=MPV) 11.7 fL 6.7-11.0 NEUTROPHIL % (test code=NT%) 53.6 % 39.0-69.0 IMMATURE GRANULOCYTE % (test code=IG%) 0.9 % 0.0-5.0 LYMPHOCYTE % (test code=LY%) 27.9 % 25.0-55.0 MONOCYTE % (test code=MO%) 16.7 % 0.0-10.0 EOSINOPHIL % (test code=EO%) 0.0 % 0.0-5.0 BASOPHIL % (test code=BA%) 0.9 % 0.0-1.0 NUCLEATED RBC % (test code=NRBC%) 0.0 % 0-0 NEUTROPHIL # (test code=NT#) 1.19 K/mm3 1.8-7.7 IMMATURE GRANULOCYTE # (test code=IG#) 0.02 x10 3/uL 0-0.03 LYMPHOCYTE # (test code=LY#) 0.62 K/mm3 1.0-5.0 MONOCYTE # (test code=MO#) 0.37 K/mm3 0-0.8 EOSINOPHIL # (test code=EO#) 0.00 K/mm3 0.0-0.5 BASOPHIL # (test code=BA#) 0.02 K/mm3 0.0-0.2 NUCLEATED RBC # (test code=NRBC#) 0.00 K/mm3 0.0-0.1 MANUAL DIFF REQUIRED (test code=MDIFF) NO, ONLY SCAN NEEDED DIFFERENTIAL [id number] 12:40:00* Test Item Value Reference Range Comments STAIN ACCEPTABILITY (test code=STN ACCEPTABLE) CABOT RINGS (test code=CAB) MORPHOLOGY COMMENT (test code=MOC) PLATELET ESTIMATE (test code=PLTEST) PLATELET MORPHOLOGY (test code=PLTMORPH) CBC W/AUTO [id number] 12:40:00* Test Item Value Reference Range Comments WHITE BLOOD CELL (test code=WBC) 2.2 K/mm3 4.5-12.5 RED BLOOD CELL (test code=RBC) 2.97 mill/mm3 3.7-5.2 HEMOGLOBIN (test code=HGB) 8.6 gram/dL 11.5-15.5 HEMATOCRIT (test code=HCT) 29.5 % 36.0-46.0 MEAN CELL VOLUME (test code=MCV) 99.3 fL 80-98 MEAN CELL HGB (test code=MCH) 29.0 picogram 27.0-33.0 MEAN CELL HGB CONCETRATION (test code=MCHC) 29.2 gram/dL 33.0-36.0 RED CELL DISTRIBUTION WIDTH (test code=RDW) 17.9 % 11.6-16.2 RED CELL DISTRIBUTION WIDTH SD (test code=RDW-SD) 64.3 fL 37.0-51.0 PLATELET COUNT (test code=PLT) 81 K/mm3 150-450 MEAN PLATELET VOLUME (test code=MPV) 11.7 fL 6.7-11.0 NEUTROPHIL % (test code=NT%) 53.6 % 39.0-69.0 IMMATURE GRANULOCYTE % (test code=IG%) 0.9 % 0.0-5.0 LYMPHOCYTE % (test code=LY%) 27.9 % 25.0-55.0 MONOCYTE % (test code=MO%) 16.7 % 0.0-10.0 EOSINOPHIL % (test code=EO%) 0.0 % 0.0-5.0 BASOPHIL % (test code=BA%) 0.9 % 0.0-1.0 NUCLEATED RBC % (test code=NRBC%) 0.0 % 0-0 NEUTROPHIL # (test code=NT#) 1.19 K/mm3 1.8-7.7 IMMATURE GRANULOCYTE # (test code=IG#) 0.02 x10 3/uL 0-0.03 LYMPHOCYTE # (test code=LY#) 0.62 K/mm3 1.0-5.0 MONOCYTE # (test code=MO#) 0.37 K/mm3 0-0.8 EOSINOPHIL # (test code=EO#) 0.00 K/mm3 0.0-0.5 BASOPHIL # (test code=BA#) 0.02 K/mm3 0.0-0.2 NUCLEATED RBC # (test code=NRBC#) 0.00 K/mm3 0.0-0.1 MANUAL DIFF REQUIRED (test code=MDIFF) NO, ONLY SCAN NEEDED DIFFERENTIAL [id number] 12:40:00* Test Item Value Reference Range Comments STAIN ACCEPTABILITY (test code=STN ACCEPTABLE) MORPHOLOGY COMMENT (test code=MOC) PLATELET ESTIMATE (test code=PLTEST) PLATELET MORPHOLOGY (test code=PLTMORPH) CBC W/AUTO [id number] 12:40:00* Test Item Value Reference Range Comments WHITE BLOOD CELL (test code=WBC) 2.2 K/mm3 4.5-12.5 RED BLOOD CELL (test code=RBC) 2.97 mill/mm3 3.7-5.2 HEMOGLOBIN (test code=HGB) 8.6 gram/dL 11.5-15.5 HEMATOCRIT (test code=HCT) 29.5 % 36.0-46.0 MEAN CELL VOLUME (test code=MCV) 99.3 fL 80-98 MEAN CELL HGB (test code=MCH) 29.0 picogram 27.0-33.0 MEAN CELL HGB CONCETRATION (test code=MCHC) 29.2 gram/dL 33.0-36.0 RED CELL DISTRIBUTION WIDTH (test code=RDW) 17.9 % 11.6-16.2 RED CELL DISTRIBUTION WIDTH SD (test code=RDW-SD) 64.3 fL 37.0-51.0 PLATELET COUNT (test code=PLT) 81 K/mm3 150-450 MEAN PLATELET VOLUME (test code=MPV) 11.7 fL 6.7-11.0 NEUTROPHIL % (test code=NT%) 53.6 % 39.0-69.0 IMMATURE GRANULOCYTE % (test code=IG%) 0.9 % 0.0-5.0 LYMPHOCYTE % (test code=LY%) 27.9 % 25.0-55.0 MONOCYTE % (test code=MO%) 16.7 % 0.0-10.0 EOSINOPHIL % (test code=EO%) 0.0 % 0.0-5.0 BASOPHIL % (test code=BA%) 0.9 % 0.0-1.0 NUCLEATED RBC % (test code=NRBC%) 0.0 % 0-0 NEUTROPHIL # (test code=NT#) 1.19 K/mm3 1.8-7.7 IMMATURE GRANULOCYTE # (test code=IG#) 0.02 x10 3/uL 0-0.03 LYMPHOCYTE # (test code=LY#) 0.62 K/mm3 1.0-5.0 MONOCYTE # (test code=MO#) 0.37 K/mm3 0-0.8 EOSINOPHIL # (test code=EO#) 0.00 K/mm3 0.0-0.5 BASOPHIL # (test code=BA#) 0.02 K/mm3 0.0-0.2 NUCLEATED RBC # (test code=NRBC#) 0.00 K/mm3 0.0-0.1 MANUAL DIFF REQUIRED (test code=MDIFF) NO, ONLY SCAN NEEDED DIFFERENTIAL [id number] 12:40:00* Test Item Value Reference Range Comments STAIN ACCEPTABILITY (test code=STN ACCEPTABLE) CABOT RINGS (test code=CAB) MORPHOLOGY COMMENT (test code=MOC) PLATELET ESTIMATE (test code=PLTEST) PLATELET MORPHOLOGY (test code=PLTMORPH) [id number] 08:33:00* Test Item Value Reference Range Comments GLUBED (test code=GLUBED) 95 mg/dL 74-106 Performed by certified paper core machine operator at [facility] [id number] 22:18:00* Test Item Value Reference Range Comments GLUBED (test code=GLUBED) 139 mg/dL 74-106 Performed by certified paper core machine operator at [facility] [id number] 16:49:00* Test Item Value Reference Range Comments GLUBED (test code=GLUBED) 129 mg/dL 74-106 Performed by certified paper core machine operator at [facility] [id number] 09:41:00* Test Item Value Reference Range Comments GLUBED (test code=GLUBED) 80 mg/dL 74-106 Performed by certified paper core machine operator at [facility] [id number] 19:59:00* Test Item Value Reference Range Comments GLUBED (test code=GLUBED) 164 mg/dL 74-106 Performed by certified paper core machine operator at [facility] [id number] 17:25:00* Test Item Value Reference Range Comments GLUBED (test code=GLUBED) 105 mg/dL 74-106 Performed by certified paper core machine operator at [facility] [id number] 11:59:00* Test Item Value Reference Range Comments GLUBED (test code=GLUBED) 96 mg/dL 74-106 Performed by certified paper core machine operator at [facility] HGB [id number] 10:31:00* Test Item Value Reference Range Comments HEMOGLOBIN (test code=HGB) 8.3 gram/dL 11.5-15.5 HEMATOCRIT (test code=HCT) 28.0 % 36.0-46.0 [id number] 20:22:00* Test Item Value Reference Range Comments GLUBED (test code=GLUBED) 87 mg/dL 74-106 Performed by certified paper core machine operator at [facility] [id number] 16:01:00* Test Item Value Reference Range Comments GLUBED (test code=GLUBED) 103 mg/dL 74-106 Performed by certified paper core machine operator at [facility] [id number] 13:48:00* Test Item Value Reference Range Comments GLUBED (test code=GLUBED) 90 mg/dL 74-106 Performed by certified paper core machine operator at [facility] CBC W/AUTO [id number] 13:36:00* Test Item Value Reference Range Comments WHITE BLOOD CELL (test code=WBC) 2.5 K/mm3 4.5-12.5 RED BLOOD CELL (test code=RBC) 2.26 mill/mm3 3.7-5.2 HEMOGLOBIN (test code=HGB) 6.7 gram/dL 11.5-15.5 HEMATOCRIT (test code=HCT) 21.9 % 36.0-46.0 RESULT VERIFIED BY REPEAT ANALYSISCritical results verified and read back by Nurse? Y MEAN CELL VOLUME (test code=MCV) 96.9 fL 80-98 MEAN CELL HGB (test code=MCH) 29.6 picogram 27.0-33.0 MEAN CELL HGB CONCETRATION (test code=MCHC) 30.6 gram/dL 33.0-36.0 RED CELL DISTRIBUTION WIDTH (test code=RDW) 19.7 % 11.6-16.2 RED CELL DISTRIBUTION WIDTH SD (test code=RDW-SD) 70.1 fL 37.0-51.0 PLATELET COUNT (test code=PLT) 67 K/mm3 150-450 MEAN PLATELET VOLUME (test code=MPV) 11.1 fL 6.7-11.0 NEUTROPHIL % (test code=NT%) 61.3 % 39.0-69.0 IMMATURE GRANULOCYTE % (test code=IG%) 0.0 % 0.0-5.0 LYMPHOCYTE % (test code=LY%) 25.8 % 25.0-55.0 MONOCYTE % (test code=MO%) 12.1 % 0.0-10.0 EOSINOPHIL % (test code=EO%) 0.0 % 0.0-5.0 BASOPHIL % (test code=BA%) 0.8 % 0.0-1.0 NUCLEATED RBC % (test code=NRBC%) 0.0 % 0-0 NEUTROPHIL # (test code=NT#) 1.52 K/mm3 1.8-7.7 IMMATURE GRANULOCYTE # (test code=IG#) 0.00 x10 3/uL 0-0.03 LYMPHOCYTE # (test code=LY#) 0.64 K/mm3 1.0-5.0 MONOCYTE # (test code=MO#) 0.30 K/mm3 0-0.8 EOSINOPHIL # (test code=EO#) 0.00 K/mm3 0.0-0.5 BASOPHIL # (test code=BA#) 0.02 K/mm3 0.0-0.2 NUCLEATED RBC # (test code=NRBC#) 0.00 K/mm3 0.0-0.1 MANUAL DIFF REQUIRED (test code=MDIFF) NO, ONLY SCAN NEEDED DIFFERENTIAL [id number] 13:36:00* Test Item Value Reference Range Comments STAIN ACCEPTABILITY (test code=STN ACCEPTABLE) STAIN ACCEPTABLE HYPOCHROMIA (test code=HYPO) 1+ ANISOCYTOSIS (test code=ANISO) 1+ PLATELET ESTIMATE (test code=PLTEST) DECREASED PLATELET MORPHOLOGY (test code=PLTMORPH) APPEAR LARGE SERUM [id number] 12:16:00* Test Item Value Reference Range Comments SERUM IRON (test code=IRON) 43 ug/dL 50-175 VITAMIN [id number] 12:16:00* Test Item Value Reference Range Comments VITAMIN B12 (test code=VITB12) 1015 pg/mL 193-986 FOLIC [id number] 12:16:00* Test Item Value Reference Range Comments FOLIC ACID (test code=FOL) 6.4 ng/mL 3.10-17.50 [id number] 12:16:00* Test Item Value Reference Range Comments FERRITIN (test code=NGUYỄN) 16 ng/mL 8-388 VITAMIN D 1,77-[id number] 12:16:00* Test Item Value Reference Range Comments VITAMIN D 1,25-DIHYDROXY (test ncwr=[id number]) pgram/mL CBC W/AUTO [id number] 11:52:00* Test Item Value Reference Range Comments WHITE BLOOD CELL (test code=WBC) 2.5 K/mm3 4.5-12.5 RED BLOOD CELL (test code=RBC) 2.26 mill/mm3 3.7-5.2 HEMOGLOBIN (test code=HGB) 6.7 gram/dL 11.5-15.5 HEMATOCRIT (test code=HCT) 21.9 % 36.0-46.0 RESULT VERIFIED BY REPEAT ANALYSISCritical results verified and read back by Nurse? Y MEAN CELL VOLUME (test code=MCV) 96.9 fL 80-98 MEAN CELL HGB (test code=MCH) 29.6 picogram 27.0-33.0 MEAN CELL HGB CONCETRATION (test code=MCHC) 30.6 gram/dL 33.0-36.0 RED CELL DISTRIBUTION WIDTH (test code=RDW) 19.7 % 11.6-16.2 RED CELL DISTRIBUTION WIDTH SD (test code=RDW-SD) 70.1 fL 37.0-51.0 PLATELET COUNT (test code=PLT) 67 K/mm3 150-450 MEAN PLATELET VOLUME (test code=MPV) 11.1 fL 6.7-11.0 NEUTROPHIL % (test code=NT%) 61.3 % 39.0-69.0 IMMATURE GRANULOCYTE % (test code=IG%) 0.0 % 0.0-5.0 LYMPHOCYTE % (test code=LY%) 25.8 % 25.0-55.0 MONOCYTE % (test code=MO%) 12.1 % 0.0-10.0 EOSINOPHIL % (test code=EO%) 0.0 % 0.0-5.0 BASOPHIL % (test code=BA%) 0.8 % 0.0-1.0 NUCLEATED RBC % (test code=NRBC%) 0.0 % 0-0 NEUTROPHIL # (test code=NT#) 1.52 K/mm3 1.8-7.7 IMMATURE GRANULOCYTE # (test code=IG#) 0.00 x10 3/uL 0-0.03 LYMPHOCYTE # (test code=LY#) 0.64 K/mm3 1.0-5.0 MONOCYTE # (test code=MO#) 0.30 K/mm3 0-0.8 EOSINOPHIL # (test code=EO#) 0.00 K/mm3 0.0-0.5 BASOPHIL # (test code=BA#) 0.02 K/mm3 0.0-0.2 NUCLEATED RBC # (test code=NRBC#) 0.00 K/mm3 0.0-0.1 MANUAL DIFF REQUIRED (test code=MDIFF) NO, ONLY SCAN NEEDED DIFFERENTIAL [id number] 11:52:00* Test Item Value Reference Range Comments STAIN ACCEPTABILITY (test code=STN ACCEPTABLE) MORPHOLOGY COMMENT (test code=MOC) PLATELET ESTIMATE (test code=PLTEST) PLATELET MORPHOLOGY (test code=PLTMORPH) CBC W/AUTO [id number] 11:49:00* Test Item Value Reference Range Comments WHITE BLOOD CELL (test code=WBC) 2.5 K/mm3 4.5-12.5 RED BLOOD CELL (test code=RBC) 2.26 mill/mm3 3.7-5.2 HEMOGLOBIN (test code=HGB) 6.7 gram/dL 11.5-15.5 HEMATOCRIT (test code=HCT) 21.9 % 36.0-46.0 RESULT VERIFIED BY REPEAT ANALYSISCritical results verified and read back by Nurse? Y MEAN CELL VOLUME (test code=MCV) 96.9 fL 80-98 MEAN CELL HGB (test code=MCH) 29.6 picogram 27.0-33.0 MEAN CELL HGB CONCETRATION (test code=MCHC) 30.6 gram/dL 33.0-36.0 RED CELL DISTRIBUTION WIDTH (test code=RDW) 19.7 % 11.6-16.2 RED CELL DISTRIBUTION WIDTH SD (test code=RDW-SD) 70.1 fL 37.0-51.0 PLATELET COUNT (test code=PLT) 67 K/mm3 150-450 MEAN PLATELET VOLUME (test code=MPV) 11.1 fL 6.7-11.0 NEUTROPHIL % (test code=NT%) 61.3 % 39.0-69.0 IMMATURE GRANULOCYTE % (test code=IG%) 0.0 % 0.0-5.0 LYMPHOCYTE % (test code=LY%) 25.8 % 25.0-55.0 MONOCYTE % (test code=MO%) 12.1 % 0.0-10.0 EOSINOPHIL % (test code=EO%) 0.0 % 0.0-5.0 BASOPHIL % (test code=BA%) 0.8 % 0.0-1.0 NUCLEATED RBC % (test code=NRBC%) 0.0 % 0-0 NEUTROPHIL # (test code=NT#) 1.52 K/mm3 1.8-7.7 IMMATURE GRANULOCYTE # (test code=IG#) 0.00 x10 3/uL 0-0.03 LYMPHOCYTE # (test code=LY#) 0.64 K/mm3 1.0-5.0 MONOCYTE # (test code=MO#) 0.30 K/mm3 0-0.8 EOSINOPHIL # (test code=EO#) 0.00 K/mm3 0.0-0.5 BASOPHIL # (test code=BA#) 0.02 K/mm3 0.0-0.2 NUCLEATED RBC # (test code=NRBC#) 0.00 K/mm3 0.0-0.1 MANUAL DIFF REQUIRED (test code=MDIFF) NO, ONLY SCAN NEEDED DIFFERENTIAL [id number] 11:49:00* Test Item Value Reference Range Comments STAIN ACCEPTABILITY (test code=STN ACCEPTABLE) CABOT RINGS (test code=CAB) MORPHOLOGY COMMENT (test code=MOC) PLATELET ESTIMATE (test code=PLTEST) PLATELET MORPHOLOGY (test code=PLTMORPH) CBC W/AUTO [id number] 11:49:00* Test Item Value Reference Range Comments WHITE BLOOD CELL (test code=WBC) 2.5 K/mm3 4.5-12.5 RED BLOOD CELL (test code=RBC) 2.26 mill/mm3 3.7-5.2 HEMOGLOBIN (test code=HGB) 6.7 gram/dL 11.5-15.5 HEMATOCRIT (test code=HCT) 21.9 % 36.0-46.0 RESULT VERIFIED BY REPEAT ANALYSISCritical results verified and read back by Nurse? Y MEAN CELL VOLUME (test code=MCV) 96.9 fL 80-98 MEAN CELL HGB (test code=MCH) 29.6 picogram 27.0-33.0 MEAN CELL HGB CONCETRATION (test code=MCHC) 30.6 gram/dL 33.0-36.0 RED CELL DISTRIBUTION WIDTH (test code=RDW) 19.7 % 11.6-16.2 RED CELL DISTRIBUTION WIDTH SD (test code=RDW-SD) 70.1 fL 37.0-51.0 PLATELET COUNT (test code=PLT) 67 K/mm3 150-450 MEAN PLATELET VOLUME (test code=MPV) 11.1 fL 6.7-11.0 NEUTROPHIL % (test code=NT%) 61.3 % 39.0-69.0 IMMATURE GRANULOCYTE % (test code=IG%) 0.0 % 0.0-5.0 LYMPHOCYTE % (test code=LY%) 25.8 % 25.0-55.0 MONOCYTE % (test code=MO%) 12.1 % 0.0-10.0 EOSINOPHIL % (test code=EO%) 0.0 % 0.0-5.0 BASOPHIL % (test code=BA%) 0.8 % 0.0-1.0 NUCLEATED RBC % (test code=NRBC%) 0.0 % 0-0 NEUTROPHIL # (test code=NT#) 1.52 K/mm3 1.8-7.7 IMMATURE GRANULOCYTE # (test code=IG#) 0.00 x10 3/uL 0-0.03 LYMPHOCYTE # (test code=LY#) 0.64 K/mm3 1.0-5.0 MONOCYTE # (test code=MO#) 0.30 K/mm3 0-0.8 EOSINOPHIL # (test code=EO#) 0.00 K/mm3 0.0-0.5 BASOPHIL # (test code=BA#) 0.02 K/mm3 0.0-0.2 NUCLEATED RBC # (test code=NRBC#) 0.00 K/mm3 0.0-0.1 MANUAL DIFF REQUIRED (test code=MDIFF) NO, ONLY SCAN NEEDED DIFFERENTIAL [id number] 11:49:00* Test Item Value Reference Range Comments STAIN ACCEPTABILITY (test code=STN ACCEPTABLE) MORPHOLOGY COMMENT (test code=MOC) PLATELET ESTIMATE (test code=PLTEST) PLATELET MORPHOLOGY (test code=PLTMORPH) CBC W/AUTO [id number] 11:49:00* Test Item Value Reference Range Comments WHITE BLOOD CELL (test code=WBC) 2.5 K/mm3 4.5-12.5 RED BLOOD CELL (test code=RBC) 2.26 mill/mm3 3.7-5.2 HEMOGLOBIN (test code=HGB) 6.7 gram/dL 11.5-15.5 HEMATOCRIT (test code=HCT) 21.9 % 36.0-46.0 RESULT VERIFIED BY REPEAT ANALYSISCritical results verified and read back by Nurse? Y MEAN CELL VOLUME (test code=MCV) 96.9 fL 80-98 MEAN CELL HGB (test code=MCH) 29.6 picogram 27.0-33.0 MEAN CELL HGB CONCETRATION (test code=MCHC) 30.6 gram/dL 33.0-36.0 RED CELL DISTRIBUTION WIDTH (test code=RDW) 19.7 % 11.6-16.2 RED CELL DISTRIBUTION WIDTH SD (test code=RDW-SD) 70.1 fL 37.0-51.0 PLATELET COUNT (test code=PLT) 67 K/mm3 150-450 MEAN PLATELET VOLUME (test code=MPV) 11.1 fL 6.7-11.0 NEUTROPHIL % (test code=NT%) 61.3 % 39.0-69.0 IMMATURE GRANULOCYTE % (test code=IG%) 0.0 % 0.0-5.0 LYMPHOCYTE % (test code=LY%) 25.8 % 25.0-55.0 MONOCYTE % (test code=MO%) 12.1 % 0.0-10.0 EOSINOPHIL % (test code=EO%) 0.0 % 0.0-5.0 BASOPHIL % (test code=BA%) 0.8 % 0.0-1.0 NUCLEATED RBC % (test code=NRBC%) 0.0 % 0-0 NEUTROPHIL # (test code=NT#) 1.52 K/mm3 1.8-7.7 IMMATURE GRANULOCYTE # (test code=IG#) 0.00 x10 3/uL 0-0.03 LYMPHOCYTE # (test code=LY#) 0.64 K/mm3 1.0-5.0 MONOCYTE # (test code=MO#) 0.30 K/mm3 0-0.8 EOSINOPHIL # (test code=EO#) 0.00 K/mm3 0.0-0.5 BASOPHIL # (test code=BA#) 0.02 K/mm3 0.0-0.2 NUCLEATED RBC # (test code=NRBC#) 0.00 K/mm3 0.0-0.1 MANUAL DIFF REQUIRED (test code=MDIFF) NO, ONLY SCAN NEEDED DIFFERENTIAL [id number] 11:49:00* Test Item Value Reference Range Comments STAIN ACCEPTABILITY (test code=STN ACCEPTABLE) CABOT RINGS (test code=CAB) MORPHOLOGY COMMENT (test code=MOC) PLATELET ESTIMATE (test code=PLTEST) PLATELET MORPHOLOGY (test code=PLTMORPH) [id number] 08:28:00* Test Item Value Reference Range Comments GLUBED (test code=GLUBED) 91 mg/dL 74-106 Performed by certified paper core machine operator at [facility] [id number] 22:08:00* Test Item Value Reference Range Comments GLUBED (test code=GLUBED) 118 mg/dL 74-106 Performed by certified paper core machine operator at [facility] [id number] 16:55:00* Test Item Value Reference Range Comments GLUBED (test code=GLUBED) 86 mg/dL 74-106 Performed by certified paper core machine operator at [facility] HGB [id number] 16:01:00* Test Item Value Reference Range Comments HEMOGLOBIN (test code=HGB) 7.1 gram/dL 11.5-15.5 HEMATOCRIT (test code=HCT) 24.6 % 36.0-46.0 [id number] 15:01:00* Test Item Value Reference Range Comments GLUBED (test code=GLUBED) 95 mg/dL 74-106 Performed by certified paper core machine operator at [facility] [id number] 12:45:00* Test Item Value Reference Range Comments GLUBED (test code=GLUBED) 61 mg/dL 74-106 Performed by certified paper core machine operator at [facility] CBC W/AUTO [id number] 10:17:00* Test Item Value Reference Range Comments WHITE BLOOD CELL (test code=WBC) 2.5 K/mm3 4.5-12.5 RED BLOOD CELL (test code=RBC) 2.13 mill/mm3 3.7-5.2 HEMOGLOBIN (test code=HGB) 6.2 gram/dL 11.5-15.5 HEMATOCRIT (test code=HCT) 21.2 % 36.0-46.0 Results called to [id number] by TERESSA 03/23/18 1016Critical results verified and read back by Nurse? Y MEAN CELL VOLUME (test code=MCV) 99.5 fL 80-98 MEAN CELL HGB (test code=MCH) 29.1 picogram 27.0-33.0 MEAN CELL HGB CONCETRATION (test code=MCHC) 29.2 gram/dL 33.0-36.0 RED CELL DISTRIBUTION WIDTH (test code=RDW) 20.8 % 11.6-16.2 RED CELL DISTRIBUTION WIDTH SD (test code=RDW-SD) 74.3 fL 37.0-51.0 PLATELET COUNT (test code=PLT) 69 K/mm3 150-450 MEAN PLATELET VOLUME (test code=MPV) 11.2 fL 6.7-11.0 NEUTROPHIL % (test code=NT%) 62.1 % 39.0-69.0 IMMATURE GRANULOCYTE % (test code=IG%) 0.4 % 0.0-5.0 LYMPHOCYTE % (test code=LY%) 24.7 % 25.0-55.0 MONOCYTE % (test code=MO%) 12.0 % 0.0-10.0 EOSINOPHIL % (test code=EO%) 0.0 % 0.0-5.0 BASOPHIL % (test code=BA%) 0.8 % 0.0-1.0 NUCLEATED RBC % (test code=NRBC%) 0.0 % 0-0 NEUTROPHIL # (test code=NT#) 1.56 K/mm3 1.8-7.7 IMMATURE GRANULOCYTE # (test code=IG#) 0.01 x10 3/uL 0-0.03 LYMPHOCYTE # (test code=LY#) 0.62 K/mm3 1.0-5.0 MONOCYTE # (test code=MO#) 0.30 K/mm3 0-0.8 EOSINOPHIL # (test code=EO#) 0.00 K/mm3 0.0-0.5 BASOPHIL # (test code=BA#) 0.02 K/mm3 0.0-0.2 NUCLEATED RBC # (test code=NRBC#) 0.00 K/mm3 0.0-0.1 MANUAL DIFF REQUIRED (test code=MDIFF) NO HGB [id number] 05:48:00* Test Item Value Reference Range Comments HEMOGLOBIN (test code=HGB) 6.5 gram/dL 11.5-15.5 HEMATOCRIT (test code=HCT) 21.7 % 36.0-46.0 Results called to [id number] by CINDA 03/23/18 0548Critical results verified and read back by Nurse? Y [id number] 22:09:00* Test Item Value Reference Range Comments GLUBED (test code=GLUBED) 70 mg/dL 74-106 Performed by certified paper core machine operator at [facility] URINALYSIS [id number] 20:07:00* Test Item Value Reference Range Comments UA COLOR (test code=COLU) ISRA YELLOW UA APPEARANCE (test code=APPU) TURBID CLEAR UA GLUCOSE DIPSTICK (test code=DGLUU) NEGATIVE mg/dL NEGATIVE UA BILIRUBIN DIPSTICK (test code=BILU) NEGATIVE mg/dL NEGATIVE UA KETONE DIPSTICK (test code=KETU) Negative mg/dL NEGATIVE UA SPECIFIC GRAVITY (test code=SGU) 1.013 1.001-1.035 UA BLOOD DIPSTICK (test code=VIJAY) 3+ (Large) NEGATIVE UA PH DIPSTICK (test code=RACHNA) 7.0 5.0-8.0 UA PROTEIN DIPSTICK (test code=PROU) 30 (1+) mg/dL NEGATIVE UA UROBILINIOGEN DIPSTICK (test code=URO) 4.0 (2+) mg/dL NEGATIVE UA NITRITE DIPSTICK (test code=ROCKY) POSITIVE NEGATIVE UA LEUKOCYTE ESTERASE W REFLEX (test code=LEUUR) 3+ NEGATIVE UA WBC (test code=WBCU) >50 #/HPF 0-5 UA RBC (test code=RBCU) >20 #/HPF 0-5 UA WBC CLUMPS (test code=WBCUCL) >10 /HPF NONE UA EPITHELIAL CELLS (test code=EPIU) FEW per HPF FEW UA BACTERIA (test code=BACU) MANY #/HPF NONE UA RENAL CELLS (test code=RENNY) 0-2 #/HPF 0-5 Urine Source? Clean CatchURINALYSIS [id number] 20:03:00* Test Item Value Reference Range Comments UA COLOR (test code=COLU) ISRA YELLOW UA APPEARANCE (test code=APPU) TURBID CLEAR UA GLUCOSE DIPSTICK (test code=DGLUU) NEGATIVE mg/dL NEGATIVE UA BILIRUBIN DIPSTICK (test code=BILU) NEGATIVE mg/dL NEGATIVE UA KETONE DIPSTICK (test code=KETU) Negative mg/dL NEGATIVE UA SPECIFIC GRAVITY (test code=SGU) 1.013 1.001-1.035 UA BLOOD DIPSTICK (test code=VIJAY) 3+ (Large) NEGATIVE UA PH DIPSTICK (test code=RACHNA) 7.0 5.0-8.0 UA PROTEIN DIPSTICK (test code=PROU) 30 (1+) mg/dL NEGATIVE UA UROBILINIOGEN DIPSTICK (test code=URO) 4.0 (2+) mg/dL NEGATIVE UA NITRITE DIPSTICK (test code=ROCKY) POSITIVE NEGATIVE UA LEUKOCYTE ESTERASE W REFLEX (test code=LEUUR) 3+ NEGATIVE UA WBC (test code=WBCU) per HPF 0-5 Urine Source? Clean Catch- XR CHEST 1 [id number] 19:08:00 FAX: Beth Pizarro DO Dix: B St: REG Name: ALEX LANDRUM [facility] : [birth year] Age/S: 67/F [address] Unit #: [id number] Loc: [place] [address] Phys: Beth Pizarro DO Acct: [id number] Dis Date: Status: REG ER PHONE #: [phone] Exam Date: 03/22/2018 190 FAX #: [phone] Reason: Altered Mental Status EXAMS: CPT CODE: [id number] XR CHEST 1 V 32200 EXAM: Chest x-ray, one view; INFORMATION: Altered mental status; IMPRESSION: 1. Mild cardiomegaly. 2. No evidence of acute cardiothoracic abnormal ities. 3. No major change compared with a study from January 28, 2018. at 1908 Reporte d and signed by: Gonsalo Mayorga M.D. CC: Beth Duke DO Technologist: SAI GARCIA; MARI ERNST RT (R) Trnscrd Date/Time/By: 03/22/2018 (1907) : By: AgustoGRW Orig Print D/T: S: 03/22/2018 (1910) PAGE 1 Signed Report CBC W/AUTO [id number] 18:57:00* Test Item Value Reference Range Comments WHITE BLOOD CELL (test code=WBC) 3.4 K/mm3 4.5-12.5 RED BLOOD CELL (test code=RBC) 2.19 mill/mm3 3.7-5.2 HEMOGLOBIN (test code=HGB) 6.4 gram/dL 11.5-15.5 HEMATOCRIT (test code=HCT) 22.4 % 36.0-46.0 MEAN CELL VOLUME (test code=MCV) 102.3 fL 80-98 MEAN CELL HGB (test code=MCH) 29.2 picogram 27.0-33.0 MEAN CELL HGB CONCETRATION (test code=MCHC) 28.6 gram/dL 33.0-36.0 RED CELL DISTRIBUTION WIDTH (test code=RDW) 18.5 % 11.6-16.2 RED CELL DISTRIBUTION WIDTH SD (test code=RDW-SD) 69.0 fL 37.0-51.0 PLATELET COUNT (test code=PLT) 95 K/mm3 150-450 MEAN PLATELET VOLUME (test code=MPV) 11.5 fL 6.7-11.0 NEUTROPHIL % (test code=NT%) 64.5 % 39.0-69.0 IMMATURE GRANULOCYTE % (test code=IG%) 0.3 % 0.0-5.0 LYMPHOCYTE % (test code=LY%) 24.5 % 25.0-55.0 MONOCYTE % (test code=MO%) 10.1 % 0.0-10.0 EOSINOPHIL % (test code=EO%) 0.0 % 0.0-5.0 BASOPHIL % (test code=BA%) 0.6 % 0.0-1.0 NUCLEATED RBC % (test code=NRBC%) 0.0 % 0-0 NEUTROPHIL # (test code=NT#) 2.16 K/mm3 1.8-7.7 IMMATURE GRANULOCYTE # (test code=IG#) 0.01 x10 3/uL 0-0.03 LYMPHOCYTE # (test code=LY#) 0.82 K/mm3 1.0-5.0 MONOCYTE # (test code=MO#) 0.34 K/mm3 0-0.8 EOSINOPHIL # (test code=EO#) 0.00 K/mm3 0.0-0.5 BASOPHIL # (test code=BA#) 0.02 K/mm3 0.0-0.2 NUCLEATED RBC # (test code=NRBC#) 0.00 K/mm3 0.0-0.1 MANUAL DIFF REQUIRED (test code=MDIFF) NO, ONLY SCAN NEEDED DIFFERENTIAL [id number] 18:57:00* Test Item Value Reference Range Comments STAIN ACCEPTABILITY (test code=STN ACCEPTABLE) STAIN ACCEPTABLE POLYCHROMASIA (test code=POLC) 1+ HYPOCHROMIA (test code=HYPO) 2+ ANISOCYTOSIS (test code=ANISO) 1+ MACROCYTOSIS (test code=MACR) 1+ PLATELET ESTIMATE (test code=PLTEST) DECREASED PLATELET MORPHOLOGY (test code=PLTMORPH) SIZE VARIABLE BASIC METABOLIC [id number] 18:52:00* Test Item Value Reference Range Comments SODIUM (test code=NA) 142 mmol/L 136-145 POTASSIUM (test code=K) 4.0 mmol/L 3.5-5.1 CHLORIDE (test code=CL) 106.0 mmol/L 98-107 CARBON DIOXIDE (test code=CO2) 31.0 mmol/L 21-32 ANION GAP (test code=GAP) 9.0 10-20 GLUCOSE (test code=GLU) 64 mg/dL 74-106 BLOOD UREA NITROGEN (test code=BUN) 15 mg/dL 7-18 GLOMERULAR FILTRATION RATE (test code=GFR) > 60 mL/min >=60 Estimated GFR by using Modified MDRD formula.Chronic kidney disease is defined as either kidney damageor GFR <60 mL/min/1.73 m2 for >3 months. CREATININE (test code=CREAT) 0.90 mg/dL 0.55-1.02 Note change in reference range due to change in reagent. BUN/CREATININE RATIO (test code=BUN/CREA) 17.4 10-20 CALCIUM (test code=CA) 7.5 mg/dL 8.5-10.1 HEPATIC FUNCTION [id number] 18:52:00* Test Item Value Reference Range Comments TOTAL PROTEIN (test code=PROT) 6.9 gram/dL 6.4-8.2 ALBUMIN (test code=ALB) 1.7 g/dL 3.4-5.0 GLOBULIN (test code=GLOB) 5.2 gram/dL 2.7-4.2 ALBUMIN/GLOBULIN RATIO (test code=A/G) 0.3 0.75-1.50 BILIRUBIN TOTAL (test code=BILT) 0.90 mg/dL 0.0-1.0 BILIRUBIN DIRECT (test code=BILD) 0.55 mg/dL 0.0-0.20 SGOT/AST (test code=AST) 51 IUnit/L 15-37 SGPT/ALT (test code=ALT) 18 IUnit/L 12-78 ALKALINE PHOSPHATASE TOTAL (test code=ALKP) 161 IUnit/L 45-117 Note change in reference range due to change in reagent. [id number] 18:52:00* Test Item Value Reference Range Comments TROPONIN-I (test code=TROPI) <0.015 ng/mL 0-0.045 BASIC METABOLIC [id number] 18:48:00* Test Item Value Reference Range Comments SODIUM (test code=NA) 142 mmol/L 136-145 POTASSIUM (test code=K) 4.0 mmol/L 3.5-5.1 CHLORIDE (test code=CL) 106.0 mmol/L 98-107 CARBON DIOXIDE (test code=CO2) mmol/L 21-32 ANION GAP (test code=GAP) 10-20 GLUCOSE (test code=GLU) mg/dL 74-106 BLOOD UREA NITROGEN (test code=BUN) mg/dL 7-18 GLOMERULAR FILTRATION RATE (test code=GFR) mL/min >=60 CREATININE (test code=CREAT) mg/dL 0.55-1.02 BUN/CREATININE RATIO (test code=BUN/CREA) 10-20 CALCIUM (test code=CA) mg/dL 8.5-10.1 HEPATIC FUNCTION [id number] 18:48:00* Test Item Value Reference Range Comments TOTAL PROTEIN (test code=PROT) gram/dL 6.4-8.2 ALBUMIN (test code=ALB) g/dL 3.4-5.0 GLOBULIN (test code=GLOB) gram/dL 2.7-4.2 ALBUMIN/GLOBULIN RATIO (test code=A/G) 0.75-1.50 BILIRUBIN TOTAL (test code=BILT) mg/dL 0.0-1.0 BILIRUBIN DIRECT (test code=BILD) mg/dL 0.0-0.20 SGOT/AST (test code=AST) IUnit/L 15-37 SGPT/ALT (test code=ALT) IUnit/L 12-78 ALKALINE PHOSPHATASE TOTAL (test code=ALKP) IUnit/L 45-117 [id number] 18:48:00* Test Item Value Reference Range Comments TROPONIN-I (test code=TROPI) ng/mL 0-0.045 [id number] 18:48:00* Test Item Value Reference Range Comments AMMONIA (test code=AMM) 146 umol/L 11-32 THROMBOPLASTIN TIME [id number] 18:42:00* Test Item Value Reference Range Comments THROMBOPLASTIN TIME PARTIAL (test code=PTT) 33.3 seconds 25.0-36.5 IS PATIENT ON ANTICOAGULANTS? N- CT HEAD/BRAIN W/O [id number] 18:36:00 Name: ALEX STANTON [facility] : 1950 Age/S: 67 / F [address] Unit #: [id number] Loc: [place] [address] Phys: Aaron Pizarro DO Acct: [id number] Di s Date: Status: PRE ER PHONE #: Exam Date: 03/22/20181820 FAX #: Reason: Altered Mental Status EXAMS: CPT CODE: [id number] CT HEAD/BRAIN W/O CONT [id number] EXAM: CT of the head; INFORMATION: AMS; TECHNIQUE AND FINDINGS: CT dose reduction protocol; The ventricles are symmetric and of normal di ameter; normal width of basilar cisterns and sulci; normal valero/white mat ter differentiation; no evidence of intra or extra-axial hemorrhage, mass lesion or midline shift. Bone windows show no abnormalities. There is opacification of right mastoid air cells. IMPRESSION: 1. Normal CT scan of the brain. 2. Right mastoiditis. at 1836 Report ed and signed by: Gonsalo Mayorga M.D. CC: Beth Pizarro DO Technologist:Geovanna Kan RT(R); STEPAN Isidro CTDI: DLP: Trnscb Date/Time: 03/22/2018 (183) [email or web address] Orig Print D/T: S: 03/22/2018 (183) CTDI: DLP: PAGE 1 Signed Report CBC W/AUTO [id number] 18:33:00* Test Item Value Reference Range Comments WHITE BLOOD CELL (test code=WBC) 3.4 K/mm3 4.5-12.5 RED BLOOD CELL (test code=RBC) 2.19 mill/mm3 3.7-5.2 HEMOGLOBIN (test code=HGB) 6.4 gram/dL 11.5-15.5 HEMATOCRIT (test code=HCT) 22.4 % 36.0-46.0 MEAN CELL VOLUME (test code=MCV) 102.3 fL 80-98 MEAN CELL HGB (test code=MCH) 29.2 picogram 27.0-33.0 MEAN CELL HGB CONCETRATION (test code=MCHC) 28.6 gram/dL 33.0-36.0 RED CELL DISTRIBUTION WIDTH (test code=RDW) 18.5 % 11.6-16.2 RED CELL DISTRIBUTION WIDTH SD (test code=RDW-SD) 69.0 fL 37.0-51.0 PLATELET COUNT (test code=PLT) 95 K/mm3 150-450 MEAN PLATELET VOLUME (test code=MPV) 11.5 fL 6.7-11.0 NEUTROPHIL % (test code=NT%) 64.5 % 39.0-69.0 IMMATURE GRANULOCYTE % (test code=IG%) 0.3 % 0.0-5.0 LYMPHOCYTE % (test code=LY%) 24.5 % 25.0-55.0 MONOCYTE % (test code=MO%) 10.1 % 0.0-10.0 EOSINOPHIL % (test code=EO%) 0.0 % 0.0-5.0 BASOPHIL % (test code=BA%) 0.6 % 0.0-1.0 NUCLEATED RBC % (test code=NRBC%) 0.0 % 0-0 NEUTROPHIL # (test code=NT#) 2.16 K/mm3 1.8-7.7 IMMATURE GRANULOCYTE # (test code=IG#) 0.01 x10 3/uL 0-0.03 LYMPHOCYTE # (test code=LY#) 0.82 K/mm3 1.0-5.0 MONOCYTE # (test code=MO#) 0.34 K/mm3 0-0.8 EOSINOPHIL # (test code=EO#) 0.00 K/mm3 0.0-0.5 BASOPHIL # (test code=BA#) 0.02 K/mm3 0.0-0.2 NUCLEATED RBC # (test code=NRBC#) 0.00 K/mm3 0.0-0.1 MANUAL DIFF REQUIRED (test code=MDIFF) NO, ONLY SCAN NEEDED DIFFERENTIAL [id number] 18:33:00* Test Item Value Reference Range Comments STAIN ACCEPTABILITY (test code=STN ACCEPTABLE) CABOT RINGS (test code=CAB) MORPHOLOGY COMMENT (test code=MOC) PLATELET ESTIMATE (test code=PLTEST) PLATELET MORPHOLOGY (test code=PLTMORPH) CBC W/AUTO [id number] 18:33:00* Test Item Value Reference Range Comments WHITE BLOOD CELL (test code=WBC) 3.4 K/mm3 4.5-12.5 RED BLOOD CELL (test code=RBC) 2.19 mill/mm3 3.7-5.2 HEMOGLOBIN (test code=HGB) 6.4 gram/dL 11.5-15.5 HEMATOCRIT (test code=HCT) 22.4 % 36.0-46.0 MEAN CELL VOLUME (test code=MCV) 102.3 fL 80-98 MEAN CELL HGB (test code=MCH) 29.2 picogram 27.0-33.0 MEAN CELL HGB CONCETRATION (test code=MCHC) 28.6 gram/dL 33.0-36.0 RED CELL DISTRIBUTION WIDTH (test code=RDW) 18.5 % 11.6-16.2 RED CELL DISTRIBUTION WIDTH SD (test code=RDW-SD) 69.0 fL 37.0-51.0 PLATELET COUNT (test code=PLT) 95 K/mm3 150-450 MEAN PLATELET VOLUME (test code=MPV) 11.5 fL 6.7-11.0 NEUTROPHIL % (test code=NT%) 64.5 % 39.0-69.0 IMMATURE GRANULOCYTE % (test code=IG%) 0.3 % 0.0-5.0 LYMPHOCYTE % (test code=LY%) 24.5 % 25.0-55.0 MONOCYTE % (test code=MO%) 10.1 % 0.0-10.0 EOSINOPHIL % (test code=EO%) 0.0 % 0.0-5.0 BASOPHIL % (test code=BA%) 0.6 % 0.0-1.0 NUCLEATED RBC % (test code=NRBC%) 0.0 % 0-0 NEUTROPHIL # (test code=NT#) 2.16 K/mm3 1.8-7.7 IMMATURE GRANULOCYTE # (test code=IG#) 0.01 x10 3/uL 0-0.03 LYMPHOCYTE # (test code=LY#) 0.82 K/mm3 1.0-5.0 MONOCYTE # (test code=MO#) 0.34 K/mm3 0-0.8 EOSINOPHIL # (test code=EO#) 0.00 K/mm3 0.0-0.5 BASOPHIL # (test code=BA#) 0.02 K/mm3 0.0-0.2 NUCLEATED RBC # (test code=NRBC#) 0.00 K/mm3 0.0-0.1 MANUAL DIFF REQUIRED (test code=MDIFF) NO, ONLY SCAN NEEDED DIFFERENTIAL [id number] 18:33:00* Test Item Value Reference Range Comments STAIN ACCEPTABILITY (test code=STN ACCEPTABLE) MORPHOLOGY COMMENT (test code=MOC) PLATELET ESTIMATE (test code=PLTEST) PLATELET MORPHOLOGY (test code=PLTMORPH) CBC W/AUTO [id number] 18:33:00* Test Item Value Reference Range Comments WHITE BLOOD CELL (test code=WBC) 3.4 K/mm3 4.5-12.5 RED BLOOD CELL (test code=RBC) 2.19 mill/mm3 3.7-5.2 HEMOGLOBIN (test code=HGB) 6.4 gram/dL 11.5-15.5 HEMATOCRIT (test code=HCT) 22.4 % 36.0-46.0 MEAN CELL VOLUME (test code=MCV) 102.3 fL 80-98 MEAN CELL HGB (test code=MCH) 29.2 picogram 27.0-33.0 MEAN CELL HGB CONCETRATION (test code=MCHC) 28.6 gram/dL 33.0-36.0 RED CELL DISTRIBUTION WIDTH (test code=RDW) 18.5 % 11.6-16.2 RED CELL DISTRIBUTION WIDTH SD (test code=RDW-SD) 69.0 fL 37.0-51.0 PLATELET COUNT (test code=PLT) 95 K/mm3 150-450 MEAN PLATELET VOLUME (test code=MPV) 11.5 fL 6.7-11.0 NEUTROPHIL % (test code=NT%) 64.5 % 39.0-69.0 IMMATURE GRANULOCYTE % (test code=IG%) 0.3 % 0.0-5.0 LYMPHOCYTE % (test code=LY%) 24.5 % 25.0-55.0 MONOCYTE % (test code=MO%) 10.1 % 0.0-10.0 EOSINOPHIL % (test code=EO%) 0.0 % 0.0-5.0 BASOPHIL % (test code=BA%) 0.6 % 0.0-1.0 NUCLEATED RBC % (test code=NRBC%) 0.0 % 0-0 NEUTROPHIL # (test code=NT#) 2.16 K/mm3 1.8-7.7 IMMATURE GRANULOCYTE # (test code=IG#) 0.01 x10 3/uL 0-0.03 LYMPHOCYTE # (test code=LY#) 0.82 K/mm3 1.0-5.0 MONOCYTE # (test code=MO#) 0.34 K/mm3 0-0.8 EOSINOPHIL # (test code=EO#) 0.00 K/mm3 0.0-0.5 BASOPHIL # (test code=BA#) 0.02 K/mm3 0.0-0.2 NUCLEATED RBC # (test code=NRBC#) 0.00 K/mm3 0.0-0.1 MANUAL DIFF REQUIRED (test code=MDIFF) NO, ONLY SCAN NEEDED DIFFERENTIAL [id number] 18:33:00* Test Item Value Reference Range Comments STAIN ACCEPTABILITY (test code=STN ACCEPTABLE) MORPHOLOGY COMMENT (test code=MOC) PLATELET ESTIMATE (test code=PLTEST) PLATELET MORPHOLOGY (test code=PLTMORPH) CBC W/AUTO [id number] 18:33:00* Test Item Value Reference Range Comments WHITE BLOOD CELL (test code=WBC) 3.4 K/mm3 4.5-12.5 RED BLOOD CELL (test code=RBC) 2.19 mill/mm3 3.7-5.2 HEMOGLOBIN (test code=HGB) 6.4 gram/dL 11.5-15.5 HEMATOCRIT (test code=HCT) 22.4 % 36.0-46.0 MEAN CELL VOLUME (test code=MCV) 102.3 fL 80-98 MEAN CELL HGB (test code=MCH) 29.2 picogram 27.0-33.0 MEAN CELL HGB CONCETRATION (test code=MCHC) 28.6 gram/dL 33.0-36.0 RED CELL DISTRIBUTION WIDTH (test code=RDW) 18.5 % 11.6-16.2 RED CELL DISTRIBUTION WIDTH SD (test code=RDW-SD) 69.0 fL 37.0-51.0 PLATELET COUNT (test code=PLT) 95 K/mm3 150-450 MEAN PLATELET VOLUME (test code=MPV) 11.5 fL 6.7-11.0 NEUTROPHIL % (test code=NT%) 64.5 % 39.0-69.0 IMMATURE GRANULOCYTE % (test code=IG%) 0.3 % 0.0-5.0 LYMPHOCYTE % (test code=LY%) 24.5 % 25.0-55.0 MONOCYTE % (test code=MO%) 10.1 % 0.0-10.0 EOSINOPHIL % (test code=EO%) 0.0 % 0.0-5.0 BASOPHIL % (test code=BA%) 0.6 % 0.0-1.0 NUCLEATED RBC % (test code=NRBC%) 0.0 % 0-0 NEUTROPHIL # (test code=NT#) 2.16 K/mm3 1.8-7.7 IMMATURE GRANULOCYTE # (test code=IG#) 0.01 x10 3/uL 0-0.03 LYMPHOCYTE # (test code=LY#) 0.82 K/mm3 1.0-5.0 MONOCYTE # (test code=MO#) 0.34 K/mm3 0-0.8 EOSINOPHIL # (test code=EO#) 0.00 K/mm3 0.0-0.5 BASOPHIL # (test code=BA#) 0.02 K/mm3 0.0-0.2 NUCLEATED RBC # (test code=NRBC#) 0.00 K/mm3 0.0-0.1 MANUAL DIFF REQUIRED (test code=MDIFF) NO, ONLY SCAN NEEDED DIFFERENTIAL [id number] 18:33:00* Test Item Value Reference Range Comments STAIN ACCEPTABILITY (test code=STN ACCEPTABLE) CABOT RINGS (test code=CAB) MORPHOLOGY COMMENT (test code=MOC) PLATELET ESTIMATE (test code=PLTEST) PLATELET MORPHOLOGY (test code=PLTMORPH) SHOULDER RIGHT COMPLETE [place] [address] Patient Name: ALEX STANTON MR #: [id number] : 1950 Age/Sex: 66/F Req #: [id number] Adm Physician: JOHN LOPEZ MD Ordered by: JOHN LOPEZ MD Report #: [id number] Location: MED/SURG3 Room/Bed: [facility] Procedure: [id number] DX/SHOULDER RIGHT COMPLETE Exam Date: 07/29/17 Exam Time: 1857 REPORT STATUS: Signed EXAMINATION: SHOULDER RIGHT COMPLETE 07/29/2017 6:37 PM COMPARISON: None INDICATION: Right shoulder pain DISCUSSION: 2 views of the right shoulder (AP internal and external rotation) Internal and external rotation are adequate No fracture or dis location. Degenerative changes at the right acromioclavicular joint. Soft ti ssues are unremarkable IMPRESSION: No acute radiographic abnormality of the right shoulder Deion Carter MD Signed by: Dr. Deion Carter M.D. on 07/29/2017 8:07 PM Dictated By: DEION CARTER MD 06 Transcribed By: NIRMALA on 03/17 COPY TO: JOHN LOPEZ MD SHOULDER LEFT COMPLETE [place] [address] Patient Name: ALEX STANTON MR #: [id number] : 1950 Age/Sex: 66/F Req #: [id number] Adm Physician: JOHN LOPEZ MD Ordered by: JOHN LOPEZ MD Report #: [id number] Loc ation: MED/SURG3 Room/Bed: [facility] Procedure: DX/SHOULDER LEFT COMPLETE Exam Date: 07/29/17 Exam Time: 1857 REPORT STATUS: Signed EXAMINATION: SHOULDER LEFT COMPLETE 07/29/2017 6:37 PM COMPARISON: None INDICATION: Left shoulder pain DISCUSSION: 2 views of the left shoulder (AP internal and external rot ation) Internal and external rotation are adequate No fracture or disloca tion. Joint spaces are maintained. Soft tissues are unremarkable IMPRES MONO: No acute radiographic abnormality of the left shoulder Deion francisco MD Signed by: Dr. Deion Carter M.D. on 07/29/2017 8:08 PM Dic tated By: DEION CARTER MD 07 Transcribed By: NIRMALA on 07/29/172007 COPY TO: JOHN VELAZQUEZ MD KNEE LEFT THREE VIEWS [place] [address] Patient Name: ALEX STANTON MR #: [id number] : 1950 Age/Sex: 66/F Req #: [id number] [facility] Physician: JOHN LOPEZ MD Ordered by: JOHN LOPEZ MD Report #: [id number] Location: [facility] Room/Bed: [facility] Procedure: DX/KNEE LEFT THREE VIEWS Exam Date: 07/29/17 Exam T unique: 1858 REPORT STATUS: Signed EXAMINATION: KNEE LEFT THREE VIEWS 07/29/2017 6:37 PM COMPARISON: None INDICATION: Left knee and ankle yonas n DISCUSSION: 2 views of the left knee (AP and lateral) Hardwar e components of a left total knee arthroplasty are in anatomic alignment. No e vidence of loosening or other hardware complication. No fracture or dislocatio n. There is heterotopic bone formation. No fracture. IMPRESSION: Po stsurgical changes to the left knee. No fracture. Deion Carter MD Si gned by: Dr. Deion Carter M.D. on 07/29/2017 8:11 PM Dictated By: DEION CARTER MD 10 Transcribed By: NIRMALA on 07/29/172010 COPY TO: JOHN LOPEZ MD ANKLE 3+ VIEWS LEFT [place] [address] Patient Name: ALEX STANTON MR #: [id number] : 1950 Age/Sex: 66/F Req #: [id number] Adm Physician: JOHN LOPEZ MD Ordered by: JOHN LOPEZ MD Report #: [id number] Location: MED/SURG3 Room/Bed: [facility] Procedure: [id number] DX/ANKLE 3+ VIEWS LEFT Exam Date: 07/29/17 Exam Patricio e: 1858 REPORT STATUS: Signed EXAMINATION: ANKLE 3+ VIEWS LEFT 2017 6:37 PM COMPARISON: None INDICATION: Left ankle pain D ISCUSSION: 3 views of the left ankle (AP, lateral, and oblique) No fractu re or dislocation. Degenerative changes of the left ankle. The bones are dem ineralized. Small calcaneal heel spur and Achilles tendon enthesophyte. Soft tissues are unremarkable IMPRESSION: No acute radiographic abnormality of the left ankle Deion Carter MD Signed by: Josr Sims on 07/29/2017 8:12 PM Dictated By: DEION CARTER MD 11 Transcribed By: NIRMALA on 03/17 COPY TO: JOHN LOPEZ MD CT CHEST W [place] [address] Patient Name: ALEX STANTON MR #: [id number] : 1950 Age/Sex: 66/F Req #: [id number] Adm Physician: Ordered by: CARLOS PEDROZA MD Report #: [id number] Location: ER Room/Bed: Procedure: [id number] CT/CT CHEST W Exam Date: 07/28/17 Exam Time: 2100 REPORT STATUS: Signed EXAM: CT CHEST W DATE: 07/28/2017 8:37 PM INDICATION: S PE PROTOCOL, PL EURITIC CP/SOB AND POS D-DIMER S [id number] COMPARISON: None TECHNIQUE: M ultidetector CT scanning of the chest was performed. Coronal and sagittal mul tiplanar reformations were obtained. IV Contrast: 100 ml Isovue 370/300 FINDINGS: LUNGS AND PLEURA: Nonspecific 5 mm right upper lobe nodule. Mild bibasilar scarring with right lower lobe bronchiolectasis. HEART, MEDIAST INUM, VESSELS: Cardiomegaly. Scattered coronary artery and aortic atherosclero tic calcification. Main pulmonary artery is mildly enlarged, 3.3 cm. Slightly suboptimal contrast bolus; otherwise no evidence of acute pulmonary artery em bolism. UPPER ABDOMEN: Cirrhotic liver with splenomegaly. Cholecystectomy MUSCULOSKELETAL: Incidental remote anterior right rib fracture. IMPRESSION: 1. No evidence of acute pulmonary artery embolism. 2. Nonspecific 5 mm right upper lobe nodule. Consider 12 month follow-up if at high risk for lung can cer. 3. Cirrhosis with evidence of portal hypertension. Signed by: Dr Zach Alfaro MD on 07/28/2017 10:15 PM Dictated By: LILIANA ALFARO MD Carmen ctronically Signed By: LILIANA ALFARO MD on 07/28/172214 Transcribed By: DAVID RAN on 07/28/172214 COPY TO: CARLOS PEDROZA MD CHEST SINGLE (PORTABLE) [place] [address] Patient Name: ALEX STANTON MR #: [id number] : 1950 Age/Sex: 66/F Req #: [id number] Adm Physician: Ordered by: PAVITHRA ROMAN MD Report #: [id number] Location: ER Room/Bed: Procedure: [id number] DX/CHEST SINGLE (PORTAB LE) Exam Date: 07/28/17 Exam Time: 1800 REPORT STATUS: Signed PROCEDURE: A single AP view of the chest. COMPARISON: [facility], DX, CHEST SINGLE (PORTABLE), 02/05/2017, 11:56. INDICATIONS: CHEST PAIN FINDINGS: Lines/tubes: None. Marilia gs: The lungs are well inflated and clear. There is no evidence of pneumonia or overt pulmonary edema. Pleura: There is no pleural effusion or pneumo thorax. Heart and mediastinum: Stable mild prominence of the cardiac si lhouette, which may be partly due to AP projection. Central pulmonary venous congestion. Bones: No acute bony abnormality. IMPRESSION: 1. mild central pulmonary venous congestion. Girma Morris M.D. Dictated by: Girma Morris M.D. on 07/28/2017 at 18:45 Electronica lly approved by: Girma Morris M.D. on 07/28/2017 at 18:45 Dictated By: GIRMA MORRIS MD 44 Transcribed By: SUZANNE on 07/28/171844 COPY TO: PAVITHRA STEPHEN MD CHEST SINGLE (PORTABLE) [place] [address] Patient Name: ALEX STANTON MR #: [id number] : 1950 Age/Sex: 66/F Req #: [id number] Adm Physician: JOHN LOPEZ MD Ordered by: GLORIA CALIX MD Report #: [id number] Location: [facility] Room/Bed: [facility] Procedure: [id number] DX/CHEST SINGLE (PORTABLE) Exam Date: 02/05/17 Exam Time: 1210 REPORT STATUS: Signed EXAMINATION: Chest, CHEST SINGLE (PO RTABLE) INDICATION: Shortness of breath. COMPARISON: Chest 2 view s 01/10/2012 FINDINGS: LINES: Right peripherally inserted ce ntral venous catheter with tip projecting over the expected region of the supe rior vena cava. Heart: Normal cardiac silhouette. Vascular: The pulmo nary vasculature is within normal limits. Atherosclerotic calcifications of t he aortic arch. Mediastinum: No mediastinal, hilar, or axillary mass or lym phadenopathy. Lungs: No parenchymal mass. No focal consolidation. The lung volumes are present bilaterally. Bilateral perihilar opacifications. Ple ura: No pleural effusion. No pneumothorax. Bones: No acute osseous abnorm ality. Degenerative changes of the thoracic spine. Soft tissues: Normal . Impression: Bilateral perihilar opacifications may represent pulmonary edema. Signed by: Dr. Billy Beckford M.D. on 02/05/2017 12:24 PM Dicta lorenza By: BILLY BECKFORD MD 122 4 Transcribed By: NIRMALA on 02/05/17 1224 COPY TO: GLORIA CALIX MD KNEE RIGHT THREE VIEWS [place] [address] Patient Name: ALEX STANTON MR #: [id number] : 1950 Age/Sex: 66/F Req #: [id number] Adm Physician: Ordered by: OBINNA BOBO [employer] Report #: [id number] Location: ER Room/Bed: Procedure: [id number] DX/KNEE RIGHT THREE VIE WS Exam Date: 02/02/17 Exam Time: 1150 REPORT STATUS: Signed PROCEDURE: X-RAY RIGHT KNEE, THREE OR MORE VIEWS MANDY RISON: None. INDICATIONS: INFECTED KNEE, DIABETIC, KNEE PAIN REPLACEME NT FINDINGS: Postoperative changes of remote right total knee arthrop lasty are present with interval removal of the tibial and fibular prostheses. Cemented filling of the osseous defect is present. Cortical irregularity along the anterior surface of the cortex at the level of the distal femur is visualized best on the lateral projection. CONCLUSION: Mildly displac ed fracture of the distal right femur. Postoperative changes of total knee art hroplasty with subsequent removal of the surgical hardware. Dictated b y: Billy Beckford M.D. on 02/02/2017 at 14:18 Electronically approved by: Billy Beckford M.D. on 02/02/2017 at 14:18 Dictated By: BILLY BECKFORD MD 17 Transcribed By: SUZANNE on 02/02/171417 COPY TO: OBINNA BOBO [employer] CHEST XRAY LINE PLACEMENT [place] [address] Patient Name: ALEX STANTON MR #: [id number] : 1950 Age/Sex: 66/F Req #: [id number] Adm Physician: JOHN LOPEZ MD Ordered by: JOHN LOPEZ MD Report #: [id number] Location: MED[facility]URG [facility] Procedure: [id number] DX/CHEST XRAY LINE PLACEMENT Exam Date: Exam Time: REPORT STATUS: Signed PROCEDURE: A single AP view of the chest. COMPARISON: Same day at 1516 hrs. INDICATIONS: PICC LINE PLACEMENT FINDINGS: See below. IMPRESSION: Interval retraction of right PICC with tip overlying the inferior SVC. Pulmonary status is unchanged. No vi sible pneumothorax. Dictated by: Danita Hodgson M.D. on 12/28/2016 at 18: 07 Electronically approved by: Danita Hodgson M.D. on 12/28/2016 at 18:0 7 Dictated By: DANITA HODGSON MD 06 Transcribed By: SUZANNE on 12/28/161806 WORM PACKER Y TO: JOHN LOPEZ MD CHEST XRAY LINE PLACEMENT [place] [address] Patient Name: ALEX STANTON MR #: [id number] : 1950 Age/Sex: 66/F Req #: [id number] Adm Physician: JOHN LOPEZ MD Ordered by: EDEN ALVAREZ MD Report #: [id number] Location: MED/SURG Room/Bed: 109-1 Procedure: [id number] DX/CHEST XRAY LINE PLACEMENT Exam Date: 12/28/16 Expamela m Time: 1632 REPORT STATUS: Signed PROCEDURE: A single AP view of the chest. COMPARISON: Same day at 1445 hrs. INDICATIONS: PICC LINE P LACEMENT FINDINGS: See below. IMPRESSION: Interval adva ncement of right PICC, with tip now overlying the right atrium. Pulmonary s tatus is unchanged. No visible pneumothorax. Dictated by: Danita Hodgson M.D. on 12/28/2016 at 16:44 Electronically approved by: Danita Hodgson M.D. on 12/28/2016 at 16:44 Dictated By: DANITA HODGSON MD El ectronically Signed By: DANITA HODGSON MD on 12/28/161643 Transcribed By: SUZANNE on 12/28/161643 COPY TO: EDEN ALVAREZ MD CHEST XRAY LINE PLACEMENT [place] [address] Patient Name: ALEX STANTON MR #: [id number] : 1950 Age/Sex: 66/F Req #: [id number] Adm Physician: JOHN LOPEZ MD Ordered by: EDEN ALVARZE MD Report #: [id number] Location: MED/SURG Room/Bed: 109-1 Procedure: [id number] DX/CHEST XRAY LINE PLACEMENT Exam Date: 12/28/16 Sonny johnson Time: 1550 REPORT STATUS: Signed PROCEDURE: A single AP view of the chest. COMPARISON: 11/08/16 INDICATIONS: PICC LINE PLACEMENT FINDINGS: Lines/tubes: Status post right upper extremity PICC placement w ith tip overlying right brachiocephalic or proximal SVC. Lungs: Limited by low lung volumes and body habitus. Significant central peribronchovascular thickening/cuffing. Pleura: There is no pleural effusion or pneumothorax. Heart and mediastinum: Enlarged cardiac silhouette. Bones: No acute bony abnormality. IMPRESSION: Status post right upper extremity PICC placement with tip overlying right brachiocephalic or proximal SVC. No visi ble pneumothorax. Limited by low lung volumes and body habitus. Significant ce ntral peribronchovascular thickening/cuffing, accentuated by low lung volu mes. Underlying infiltrates cannot be excluded. Dictated by: Danita Mayorga i, M.D. on 12/28/2016 at 16:14 Electronically approved by: Danita Hodgson M.D. on 12/28/2016 at 16:14 Dictated By: DANITA Torres lectronically Signed By: DANITA HODGSON MD on 12/28/161613 Transcribed By: [facility] E on 12/28/161613 COPY TO: EDEN ALVAREZ MD KNEE RIGHT 1-2 VIEWS [place] [address] Patient Name: ALEX STANTON MR #: [id number] DO B: 1950 Age/Sex: 66/F Req #: [id number] Adm Physici an: JOHN LOPEZ MD Ordered by: EDEN ALVAREZ MD Report #: [id number] Loc ation: MED/SURG Room/Bed: 109-1 Procedure: [id number] DX/KNEE RIGHT 1-2 VIEWS Exam Date: 12/28/16 Exam Patricio e: 1255 REPORT STATUS: Signed PROCEDURE: X-RAY RIGHT KNEE, ONE OR TWO V IEWS COMPARISON: 11/09/16 INDICATIONS: POST OPERATIVE RIGHT KNEE SURGERY FINDINGS: See conclusion. CONCLUSION: Status post removal of right knee prosthesis with surrounding soft tissue swelling, surgical drain, air and ayush consistent with recent surgery. Loss of joint spaces. Nond isplaced anterior distal femoral fracture. Dictated by: Rani Barba on 12/28/2016 at 13:45 Electronically approved by: Devante Barba on 12/28/2016 at 13:45 Dictated By: DANITA HODGSON MD Electr onically Signed By: DANITA HODGSON MD on 12/28/16 1345 Transcribed By: SUZANNE on 12/28/16 1345 COPY TO: EDEN ALVAREZ MD KNEE RIGHT 1-2 VIEWS [place] [address] Patient Name: ALEX STANTON MR #: [id number] DO B: 1950 Age/Sex: 66/F Req #: [id number] Adm Physici an: JOHN LOEPZ MD Ordered by: EDEN ALVAREZ MD Report #: [id number] Loc ation: MED/SURG Room/Bed: 114-1 Procedure: DX/KNEE RIGHT 1-2 VIEWS Exam Date: 11/09/16 Exam Patricio e: 1330 REPORT STATUS: Signed PROCEDURE: X-RAY RIGHT KNEE, ONE OR TWO VIEWS COMPARISON: Patients [facility], DX, KNEE RIGHT 1-2 VIEWS, 01/12/2016, 13:20. INDICATIONS: POST KNEE SURGERY, THIRD KNEE REPLACEME NT FINDINGS: Status post total right knee arthroplasty with intact stemm ed femoral and tibial prosthetic components in adequate anatomic alignment . There is post-operative suprapatellar effusion, soft tissue swelling and g as. Overlying surgical drain. Multiple surgical skin ayush. No acute fra cture-dislocation. CONCLUSION: Status post total right knee arthroplas ty with intact prosthesis in adequate anatomic alignment. Ramona Manley M.D. Dictated by: Ramona Manley M.D. on 11/09/2016 at 14:52 Electronically approved by: Ramona Manley M.D. on 7 at 14:52 Dictated By: CHRIS MANLEY MD, MD Electronically S igned By: CHRIS MANLEY MD, MD on 11/09/161451 Transcribed By: USZANNE on 1451 COPY TO: EDEN ALVAREZ MD [facility] [place] [address] Patient Name: ALEX STANTON MR #: [id number] : 1950 Age/Sex: 66/F Req #: [id number] Adm Physician: JOHN LOPEZ MD Ordered by: CARLOS PEDROZA MD Report #: [id number] Loc ation: MED/SURG Room/Bed: 114 Procedure: DX/CHEST SINGLE (PORTABLE) Exam Date: 11/08/16 Exam Time: 2200 REPORT STATUS: Signed EXAM: CHEST SINGLE (PORTABLE), AP 1 vi ew DATE: 11/08/2016 9:13 PM Time stamp on exam: 2153 hours INDICATION: Preop for knee surgery COMPARISON: AP view of the chest September 06, 2016 FINDINGS: LINES/TUBES: None LUNGS: Low inspiration with bibasilar atelectasis and vascular prominence. PLEURA: No effusions or pneumothorax. HEART AND MEDIASTINUM: Stable enlargement of the cardiomediastinal silhouette with prom inent central vessels and right paratracheal stripe likely due to ectatic vasc ulature. BONES AND SOFT TISSUES: No acute findings. IMPRESSION: No interval change from prior exam. Signed by: Rani Merino on 11/08/2016 10:16 PM Dictated By: GIBSON BLANCAS MD Electronically Si gned By: GIBSON BLANCAS MD on 11/08/162215 Transcribed By: NIRMALA on 11/08/162215 COPY TO: CARLOS PEDROZA MD [facility] COMPLETE [place] [address] Patient Name: ALEX STANTON MR #: [id number] : 1950 Age/Sex: 66/F Req #: [id number] Adm Physician: JOHN LOPEZ MD Ordered by: DOROTA HOLLIS MD Report #: [id number] Location: [facility] Room/Bed: [place] [address] Procedure: U S/US ABDOMEN COMPLETE Exam Date: 11/03/16 Exam Time: 1740 REPORT STATUS: Signed PROCEDURE: ABDOMINAL ULTRASOUND COMPARI SON: [facility], US, US ABDOMEN LIMITED, 05/31/2016, 10:48. I NDICATIONS: Liver cirrhosis, evaluate liver and spleen FINDINGS: Liver: 19.0 cm. Nodular contour. Increased hepatic parenchymal echogenicity. No focal mass. Main portal vein: 1.2 cm. Hepatopetal flow. Gallbladd er: Absent. Common Bile Duct: 0.5 cm. No echogenic filling defect. Sonograp hic Pinto's sign: Negative Right kidney: 10.9 cm. No solid or cystic mass , echogenic calculi, or hydronephrosis. Normal parenchymal echogenicity. Le ft kidney: 12.0 cm. No solid or cystic mass, echogenic calculi, or hydronephr osis. Normal parenchymal echogenicity. Spleen: 15.7 cm. No focal lesions. Pancreas: The visualized portions of the pancreas are normal. Inferior vena cava: Normal. Aorta: Normal. Ascites: None. CONCLUSION: 1. hepatomegaly with nodular contour suggestive of cirrhosis. Increased paren chymal echogenicity, representing fatty infiltration. No focal lesions. 2. Splenomegaly, which may reflect portal hypertension. Haritha Morris M.D. Dictated by: Girma Morris M.D. on 11/03/2016 at 19:13 Electronically approved by: Girma Morris M.D. on 11/03/2016 at 19:13 Dictated By: GIRMA MORRIS MD 12 Transcribed By: SUZANNE on 11/03/161912 COPY TO: DOROTA HOLLIS MD CHEST SINGLE (PORTABLE) [place] [address] Patient Name: ALEX STANTON MR #: [id number] : 1950 Age/Sex: 66/F Req #: [id number] Adm Physician: Ordered by: MABEL WONG MD Report #: [id number] Location: ER Room/Bed: Procedure: [id number] DX/CHEST SINGLE (PORTABLE) Exam Date: Exam Time: REPORT STATUS: Signed PROCEDURE: A single AP view of the chest. COMPARISON: Portable chest . INDICATIONS: Cough FINDINGS: Lines/tubes: None. Lungs: Low lung volumes are present bilaterally. Bibasilar atelectasis. No parenchymal mass. Pleura: There is no pleural effusion or pneumothorax. Heart and mediastinum: The heart and the mediastinum are unremarkable. Bones: No acute bony abnormality. Degenerative changes of the thoracic spine. IMPRESSION: No acute radiographic abnormality. Dictate d by: Billy Beckford M.D. on 09/06/2016 at 18:23 Electronically approved by : Billy Beckford M.D. on 09/06/2016 at 18:23 Dictated By: BILLY WHELAN MD 22 Transcribed By : SUZANNE on 09/06/161822 COPY TO: MABEL WONG MD, I [place] [address] Patient Name: ALEX STANTON MR #: [id number] : 1950 Age/Sex: 66/F Req #: [id number] Adm Physician: JOHN LOPEZ MD Ordered by: JENNIFER MESSINA MD Report #: [id number] Lo cation: IMSOPHIE Room/Bed: IMCU 186-1 Procedure: 1 NM/G I BLEED Exam Date: 08/03/16 Exam Time: 1100 REPORT STATUS: Signed Tagged-RBC GI Bleed Study Clinical informatio n: 65-year-old female with anemia and dark stools.. Discussion: The patient 's own red blood cells were labeled with 27 mCi of technetium-99m pertechnetat e using the in vitro method (UltraTag). Dynamic images of the abdomen were ob tained through 60 minutes. Distribution of tracer activity appears physiolo gic throughout the abdomen. No abnormal accumulation of tracer is seen within the gastrointestinal lumen. Impression: No scan evidence of active g astrointestinal bleeding at this time. Signed by: Dr. Ellen Long M.D. on 08/03/2016 1:41 PM Dictated By: ELLEN LONG MD Electronically Sign ed By: ELLEN LONG MD on 08/03/16 1341 Transcribed By: NIRMALA on 08/03/16 1341 COPY TO: JENNIFER MESSINA MD CHEST SINGLE (PORTABLE) [place] [address] Patient Name: ALEX STANTON MR #: [id number] : 1950 Age/Sex: 66/F Req #: [id number] Adm Physician: JOHN LOPEZ MD Ordered by: MABEL WONG MD Report #: [id number] Loca tion: [facility] Room/Bed: [place] [address] Procedure: DX/CHEST SINGLE (PORTABLE) Exam Date: 08/02/16 Exam Time: 1500 REPORT STATUS: Signed PROCEDURE: A single AP view of the c hest. COMPARISON: Portable chest 05/28/2016. INDICATIONS: CHEST YONAS N FINDINGS: Lines/tubes: None. Lungs: Low lung volumes are pr esent bilaterally. Bibasilar atelectasis. No parenchymal mass. Pleura: There is no pleural effusion or pneumothorax. Heart and mediastinum: The heart and the mediastinum are unremarkable. Bones: No acute bony abnorma lity. Degenerative changes of the thoracic spine. IMPRESSION: No acute radiographic abnormality. Dictated by: Billy Beckford M.D. on 017 at 15:53 Electronically approved by: Billy Beckford M.D. on 08/02/2016 at 15:53 Dictated By: BILLY BECKFORD MD 52 Transcribed By: SUZANNE on 08/02/163 WORM PACKER Y TO: MABEL WONG MD US ABDOMEN LIMITED [place] [address] Patient Name: ALEX STANTON MR #: [id number] : 1950 Age/Sex: 66/F Req #: [id number] Adm Physician: JOHN LOPEZ MD Ordered by: JENNIFER MESSINA MD Report #: [id number] Location: MED/SURG2 Room/Bed: [facility] Procedure: [id number] US/US ABDOMEN LIMITED Exam Date: 05/31/16 Exam Patricio e: 1048 REPORT STATUS: Signed PROCEDURE: LIMITED ABDOMINAL ULTRASOUND COMPARISON: Right upper quadrant ultrasound 03/26/2016. INDICATIONS: Cir rhosis, anemia FINDINGS: Liver: 16.5 cm. Increased hepatic parenc hymal echogenicity. Minimal nodular contour. No focal mass. Main portal ve in: 1.4 cm. Hepatopedal flow. Gallbladder: Cholecystectomy. Common Bile Duct: 7.0 mm. No echogenic filling defect. Sonographic Pinto's sign: Negati ve. Right kidney: 10.5 cm. No solid or cystic mass, echogenic calculi, or hydronephrosis. Normal parenchymal echogenicity. Pancreas: The pancreas was insufficiently visualized for comment secondary to overlying bowel gas and i ncreased body habitus. Inferior vena cava: Normal. Aorta: Normal. Asci natalya: None. CONCLUSION: 1. No acute sonographic abnormality. 2. Hepatic steatosis. Minimal hepatomegaly. 3. Nodular contour of the liver may r epresent cirrhosis. Dictated by: Billy Beckford M.D. on 05/31/2016 a t 12:31 Electronically approved by: Billy Beckford M.D. on 05/31/2016 at 12 :31 Dictated By: BILLY BECKFORD MD 1231 Transcribed By: SUZANNE on 05/31/16 1231 COPY TO: JENNIFER MESSINA MD CHEST SINGLE (PORTABLE) [place] [address] Patient Name: ALEX STANTON MR #: [id number] : 1950 Age/Sex: 66/F Req #: [id number] Adm Physician: JOHN LOPEZ MD Ordered by: OBINNA STEVENSON MD Report #: [id number] Location: MED/SURG2 Room/Bed: [facility] Procedure: DX/CHEST SINGLE (PORTABLE) Exam Date: 05/28/16 Exam Time: 2054 REPORT STATUS: Signed EXAM: CHEST SINGLE (PORTABLE), AP Portable DATE: 05/28/2016 8:23 PM Time stamp on exam: 2056 hours INDICAT ION: Blood transfusion COMPARISON: AP view of the chest were 17/10/2016 FI NDINGS: LINES/TUBES: None LUNGS: No consolidations or edema. PLEURA : No effusions or pneumothorax. HEART AND MEDIASTINUM: Cardiomegaly and ned tral vascular congestion. BONES AND SOFT TISSUES: No acute findings. I MPRESSION: Cardiomegaly and central vascular congestion. Signed by: Dr. Gibson Blancas M.D. on 05/28/2016 9:46 PM Dictated By: GIBSON AUSTIN MD 45 Transcribed By: NIRMALA on 05/28/162145 COPY TO: OBINNA STEVENSON MD CHEST SINGLE (PORTABLE) [place] [address] Patient Name: ALEX STANTON MR #: [id number] : 1950 Age/Sex: 66/F Req #: [id number] Adm Physician: JOHN LOPEZ MD Ordered by: JENNIFER MESSINA MD Report #: [id number] Location: MED/SURG3 Room/Bed: [facility] Procedure: [id number] DX/CHEST SINGLE (PORTABLE) Exam Date: 03/27/16 Exa m Time: 444 REPORT STATUS: Signed EXAMINATION: CHEST SINGLE (PORTABLE ) INDICATION: Pneumonia, follow-up COMPARISON: 03/25/19 FINDINGS: TUBES and LINES: Right upper extremity PICC line is in good position with tip overlying the distal SVC LUNGS: Lungs are not we ll inflated. There are bibasilar atelectasis. There is perihilar interstiti al opacities, consistent with fluid overload/ interstitial edema. PLEURA: Small right pleural effusion is now visualized HEART AND MEDIASTINUM: Ca rdiac size is mildly enlarged. There are atherosclerotic calcifications within the aorta. BONES AND SOFT TISSUES: No acute osseous lesion. Soft tissues are unremarkable. UPPER ABDOMEN: No free air under the diaphragm. IMPRESSION: Findings are compatible with worsening fluid overload/pulmonary edema. Pneumonia is not longer conspicuous. Signed by: Dr. Amilcar hudson M.D. on 03/27/2016 5:36 AM Dictated By: AMILCAR CASTORENA MD El ectronically Signed By: AMILCAR CASTORENA MD on 03/27/16535 Transcribed By : NIRMALA on 03/27/16535 COPY TO: JENNIFER MESSINA MD LIVER [place] [address] Patient Name: ALEX STANTON MR #: [id number] DO B: 1950 Age/Sex: 66/F Req #: [id number] Adm Physici an: JOHN LOPEZ MD Ordered by: JOHN LOPEZ MD Report #: [id number] Loc ation: MED/SURG3 Room/Bed: [facility] Procedure: [id number] US/US LIVER Exam Date: 03/26/16 Exam Time: 1310 REPORT STATUS: Signed PROCEDURE: US LIVER COMPARISON: None. INDICA TIONS: Elevated Billirubin FINDINGS: LIVER: Size: 16.8 cm in the right midclavicular line, mildly enlarged Appearance: Heterogeneous ech ogenicity, nodular contour Mass: No focal masses GALLBLADDER: Cho lecystectomy. BILE DUCTS: Intrahepatic Ducts: No dilation E xtrahepatic Ducts: Common bile duct measures 0.7 cm, normal. PANCREAS: Visualized portions of the neck and proximal body are normal. RIGHT KIDNE Y: Size: 13.6cm in length Echogenicity: Normal Collecting System: No hydronephrosis Stone: None Cyst/Mass: None VESSELS: Aorta: Vi sualized portions are normal. Inferior Vena Cava: Visualized portions are no rmal. Main Portal Vein: 1 cm, normal size with hepatopedal flow. FREE FLUID: No ascites or pleural effusions. CONCLUSION: 1. Nodular contour of the liver suggestive of cirrhosis. 2. Cholecystectomy. 3. Otherw ise, unremarkable right upper quadrant ultrasound. Dictated by: Rodo Gibson M.D. on 03/26/2016 at 14:41 Electronically approved by: Nuno Gibson M.D. on 03/26/2016 at 14:41 Dictated By: FREIDA MARIN MD 1441 Transcribed By: SUZANNE on 03/26/16 1441 COPY TO: JOHN LOPEZ MD CHEST XRAY LINE PLACEMENT [place] [address] Patient Name: ALXE STANTON MR #: [id number] : 1950 Age/Sex: 66/F Req #: [id number] Adm Physician: JOHN LOPEZ MD Ordered by: JOHN LOPEZ MD Report #: [id number] Location: MED/SURG3 Room/Bed: [facility] Procedure: [id number] DX/CHEST XRAY LINE PLACEMENT Exam Date: Exam Time: REPORT STATUS: Signed EXAMINATION: CHEST XRAY LINE PLACEMENT 03/25 7:11 PM COMPARISON: Chest x-ray from 03/24/2016. INDICATION: Phoebe e placement. DISCUSSION: LINES: Right approach PICC has its tip in the distal SVC. LUNGS: Increasing interstitial opacities. PLEURA: No pleural effusion or pneumothorax. HEART AND MEDIASTINUM: The heart is mil dly enlarged. BONES AND SOFT TISSUES: No acute osseous lesion. The soft ti ssues are normal. IMPRESSION: Increasing interstitial opacities sugge st worsening pulmonary edema. Right PICC tip is in the distal SVC. Signed by: Dr. Bjorn Kennedy M.D. on 03/25/2016 7:28 PM Dictated By: BJORN KENNEDY MD 27 Transcribed By: NIRMALA on 03/25/161927 COPY TO: JOHN LOPEZ MD CHEST SINGLE (PORTABLE) [place] [address] Patient Name: ALEX STANTON MR #: [id number] : 1950 Age/Sex: 66/F Req #: [id number] Adm Physician: JOHN LOPEZ MD Ordered by: OBINNA STEVENSON MD Report #: [id number] Location: MED/SURG3 Room/Bed: [facility] Procedure: DX/CHEST SINGLE (PORTABLE) Exam Date: 03/24/16 Exam Time: 2039 REPORT STATUS: Signed EXAMINATION: CHEST SINGLE (PO RTABLE) INDICATION: Fever. COMPARISON: 01/12/2016 and 01/09/2016 FINDINGS: TUBES and LINES: EKG leads overlie the chest. Right PICC line has been removed. LUNGS: Lungs are not well inflated. T here are bibasilar atelectasis. Patchy perihilar opacities right [place] n left with mid left lung involvement is suspicious for multifocal pneumonia PLEURA: No pleural effusion or pneumothorax. HEART AND MEDIASTINUM: C ardiac size is mildly enlarged. BONES AND SOFT TISSUES: No acute osseo us lesion. Moderate degenerative changes of the right glenohumeral joint. Soft tissues are unremarkable. UPPER ABDOMEN: No free air under the diaphragm. IMPRESSION: Findings are suspicious for atypical infection involving the hilar regions and left midlung Signed by: Dr. Amilcar Piedra M.D. on 03/24/2016 9:04 PM Dictated By: AMILCAR CASTORENA MD 03 Transcribed By: NIRMALA on 03/24/162103 COPY TO: OBINNA STEVENSON MD CHEST XRAY LINE PLACEMENT [place] [address] Patient Name: ALEX STANTON MR #: [id number] : 1950 Age/Sex: 66/F Req #: [id number] Adm Physician: EDEN ALVAREZ MD Ordered by: EDEN ALVAREZ MD Report #: [id number] Location: MED/SURG Room/Bed: [facility] Procedure: [id number] DX/CHEST XRAY LINE PLACEMENT Exam Date: 01/12/16 Sonny m Time: 1610 REPORT STATUS: Signed PROCEDURE: A single AP view of the chest. COMPARISON: Chest 2 views 01/09/2016 INDICATIONS: PICC LINE PLACEMENT FINDINGS: Lines/tubes: Right peripherally inserted cent ral venous catheter with tip projecting over the expected region of the super ior vena cava. Lungs: The lungs are well inflated and clear. There is no evidence of pneumonia or pulmonary edema. Bibasilar atelectasis. Pleura : There is no pleural effusion or pneumothorax. Heart and mediastinum: T he heart and the mediastinum are unremarkable. Bones: No acute bony abnor mality. Degenerative changes of the thoracic spine. IMPRESSION: No acute radiographic abnormality. Dictated by: Billy Beckford M.D. on 12/29 at 17:18 Electronically approved by: Billy Beckford M.D. on 016 at 17:18 Dictated By: BILLY BECKFORD MD Electronically Sign ed By: BILLY BECKFORD MD on 01/12/161717 Transcribed By: SUZANNE on 01/12/161717 COPY TO: EDEN ALVAREZ MD KNEE RIGHT 1-2 VIEWS [place] [address] Patient Name: ALEX STANTON MR #: [id number] : 1950 Age/Sex: 66/F Req #: [id number] Adm Physician: EDEN ALVAREZ MD Ordered by: EDEN ALVAREZ MD Report #: [id number] Loc ation: MED/SURG Room/Bed: [facility] Procedure: [id number] DX/KNEE RIGHT 1-2 VIEWS Exam Date: 01/12/16 Exam Patricio e: 1307 REPORT STATUS: Signed PROCEDURE: X-RAY RIGHT KNEE, ONE OR TWO V IEWS COMPARISON: None. INDICATIONS: POST OPERATIVE KNEE SURGERY FIND INGS: See conclusion. CONCLUSION: Status post total right knee r eplacement with surrounding soft tissue swelling, air and ayush consistent with recent surgery. No acute fractures. Dictated by: Devante Fabian on 01/12/2016 at 13:43 Electronically approved by: Billy Beckford M.D. o n 01/12/2016 at 13:43 Dictated By: BILLY BECKFORD MD Electronic ally Signed By: BILLY BECKFORD MD on 01/12/16 1343 Transcribed By: SUZANNE on 1343 COPY TO: EDEN ALVAREZ MD CHEST 2 VIEWS [place] [address] Patient Name: ALEX STANTON MR #: [id number] : 1950 Age/Sex: 66/F Req #: [id number] Adm Physician: EDEN ALVAREZ MD Ordered by: EDEN ALVAREZ MD Report #: [id number] Loc ation: MED/SURG Room/Bed: 106 Procedure: [id number] DX/CHEST 2 VIEWS Exam Date: 01/09/16 Exam Time: 1350 REPORT STATUS: Signed PROCEDURE: CHEST 2 VIEWS TECHNIQUE: PA and lateral chest INDICATION: Preoperative evaluation for right knee replacement COMPARISON: [facility], DX, CHEST 2 VIEWS, 09/19/2015, 14:26. FINDINGS: Lungs are clear and symmetrically inflated. No pleural effu sions. Mild cardiac enlargement with left ventricular prominence. Normal m ediastinal contour and central vasculature. Intact skeleton. CONCLUSIO N: Mild cardiomegaly with left ventricular hypertrophy unchanged from August 2015. Dictated by: Dianna Villarreal M.D. on 01/09/2016 at 14:2 4 Electronically approved by: Dianna Villarreal M.D. on 01/09/2016 at 14:24 Dictated By: DIANNA VILLARREAL MD 1424 Transcribed By: SUZANNE on 01/09/161423 COPY TO: EDEN ALVAREZ MD CHEST 2 VIEWS [facility] [address] [place] [address] Patient Name: ALEX STANTON MR #: [id number] : 1950 Age/Sex: 66/F Req #: [id number] Adm Physician: Ordered by: EDEN ALVAREZ MD Report #: [id number] Location: OR Room/Bed: Procedure: [id number] DX/CHEST 2 VIEWS Exam Date : 09/19/15 Exam Time: 1430 REPORT STATUS: Ikm d PROCEDURE: Frontal and lateral views of the chest. COMPARISON: [facility], DX, CHEST SINGLE (NOT PORTABLE), 08/14/2015, 8:37. INDICATIONS: PRE-OPERATIVE CHEST XRAY FOR RIGHT KNEE SURGERY FINDING S: Lines/tubes: None. Lungs: The lungs are well inflated. There is no evidence of pneumonia or pulmonary edema. Pleura: There is no pleural effusion or pneumothorax. Stable eventration of the right anterior hemidiaphr agm. Heart and mediastinum: Stable borderline to mild enlargement of the cardiac silhouette. Unchanged prominence of the pulmonary arteries. Mild ce ntral pulmonary venous congestion Bones: No acute bony abnormality. IMPRESSION: 1. stable borderline to mild enlargement of cardiac silhouet te and mild central pulmonary venous congestion. No overt pulmonary edema, consolidation, or effusion. Girma Morris M.D. Dictated by: Althea Morris M.D. on 09/19/2015 at 15:06 Electronically approved by: Girma Morris M.D. on 09/19/2015 at 15:06 Dictated By: ZACH MORRIS MD 1501 Tr anscribed By: SUZANNE on 09/19/15 1506 COPY TO: EDEN ALVAREZ MD G I BLEED [facility] [address] [place] [id number] Patient Name: ALEX STANTON MR #: [id number] : 1950 Age/Sex: 66/F Req #: [id number] Adm Physician: JOHN LOPEZ MD Ordered by: JENNIFER MESSINA MD Report #: [id number] Location: MED/SURG3 Room/Bed: [facility] Procedure: [id number] NM/G I BLEED Exam Date: 08/18/15 Exam Time: 1521 REPORT STATUS: Signed Tagged-RBC GI Bleed Study for Detection of Active GI Bleed Clinical information: 64-year-old female with positive guaiac, ane morgan and is easy bruisability. Discussion: The patient's own red blood levon ls were labeled with 22.5 mCi of technetium-99m pertechnetate using the in vit ro method (UltraTag). Dynamic images of the abdomen were obtained through 60 minutes. Distribution of tracer activity appears physiologic throughout the abdomen. No abnormal accumulation of tracer is seen within the gastrointesti nal lumen. Impression: No scan evidence of active gastrointestinal bl eeding at this time. Dictated By: ELLEN LONG MD 1403 Transcribed By: NIRMALA on 08/18/15 2943 COPY TO: JENNIFER MESSINA MD ANKLE 3 + VIEWS RIGHT [address], [place] [address] Patient Name: ALEX STANTON MR #: [id number] : 1950 Age/Sex: 66/F Req #: [id number] Adm Physician: JOHN LOPEZ MD Ordered by: KENZIE THOMAS MD, MD Report #: [id number] Location: [facility] Room/Bed: [facility] Procedure: [id number] DX/ANKLE 3 + VIEWS RIGHT Exam Date: 08/14/15 Ex am Time: 0855 REPORT STATUS: Signed PROCEDURE: X-RAY RIGHT ANKLE, COM PLETE INDICATION: Pain COMPARISON: None. FINDINGS: Mild so ft tissue swelling adjacent to the lateral malleolus. The ankle mortise is in tact. No fracture or dislocation. Bony spurring of the calcaneus. CONCLUSION: Soft tissue swelling without evidence of acute bony abnormal ity. Nora Landa D.O. Dictated by: Nora Landa D.O. on 08/14/2015 at 9:58 Electronically approved by: Kojo Nolan on 08/14/2015 at 9:58 Dictated By: NORA LANDA DO Electro nically Signed By: NORA LANDA DO on 08/14/15 0950 Transcribed By: SUZANNE on 0 08/14/15 0958 COPY TO: KENZIE THOMAS CHEST SINGLE (NOT PORTABLE) [facility] [address] [place] [address] Patient Name: ALEX STANTON MR #: [id number] DO B: 1950 Age/Sex: 66/F Req #: [id number] Adm Physici an: JOHN LOPEZ MD Ordered by: KENZIE THOMAS MD, MD Report #: [id number] Location: MED/SURG3 Room/Bed: 295-1 Procedure: [id number] DX/CHEST SINGLE (NOT PORTABLE) Exam Date: 08/14/15 Exam Time: 0855 REPORT STATUS: Signed PROCEDURE: X-RAY CHEST, ONE VIEW COMPARISON: None. INDICATIONS: RIGHT KNEE/ANKLE PAIN FINDINGS: There are no consolidations, pleural effusions or pneumothorax. The cardiomediastinal silhouette is prominent. The pulmonary vasculature is normal. There are no acute osseous abnormalities. CONCLUSION: No ac [place] cardiopulmonary abnormality. Nora Landa D.O. Dictated by: Nora Landa D.O. on 08/14/2015 at 9:52 Electronically approved by: Russell Landa D.O. on 08/14/2015 at 9:52 Dictated By: NORA SMART DO 0944 Transcribe d By: SUZANNE on 08/14/15 0952 COPY TO: KENZIE THOMAS KNEE RIGHT THREE VIEWS [place] [address] Patient Name: ALEX STANTON MR #: [id number] : 1950 Age/Sex: 66/F Req #: [id number] Adm Physician: JOHN LOPEZ MD Ordered by: KENZIE THOMAS MD, MD Report #: [id number] Location: MED/SURG3 Room/Bed: 295-1 Procedure: [id number] DX/KNEE RIGHT THREE VIEWS Exam Date: 08/14/15 E xam Time: 0855 REPORT STATUS: Signed PROCEDURE: X-RAY RIGHT KNEE, THREE OR MORE VIEWS COMPARISON: None. INDICATIONS: RIGHT KNEE PAIN FINDIN GS: See conclusion. CONCLUSION: Status post total right knee rep lacement with no acute fractures. Mild soft tissue swelling about the knee. S mall suprapatellar effusion. Lucency adjacent to the femoral prosthesis is in determinate but could represent some loosening. MRI of the knee may provide a dditional information. Nora Landa D.O. Dictated by: Nora Landa D.O. on 08/14/2015 at 9:56 Electronically approved by: Nora deshpande D.O. on 08/14/2015 at 9:56 Dictated By: NORA Savage 0947 Transcribed By: SUZANNE on 08/14/15 0956 COPY TO: KENZIE THOMAS
[2018-05-11] MEDS ORDERED: SODIUM CHLORIDE 0.9% 1000ML 1,000 ML ONE (13:11)
[2018-05-11 13:43] LABS: BASOPHILS % 0.2 % (0.0-1.0); EOSINOPHILS # (AUTO) 0.1 (0.0-0.4); EOSINOPHILS % 2.7 % (0.0-6.0); LYMPHOCYTES # (AUTO) 0.6 (1.0-3.2); LYMPHOCYTES % 14.3 % (18.0-39.1); MEAN CORPUSCULAR HEMOGLOBIN 32.2 pg (28-32); MEAN CORPUSCULAR HGB CONC 30.1 g/dL (31-35); MEAN CORPUSCULAR VOLUME 107.1 fL (81-99); MONOCYTES # (AUTO) 0.4 (0.2-0.8); MONOCYTES % 8.5 % (4.4-11.3); NEUTROPHILS # (AUTO) 3.3 (2.1-6.9); NEUTROPHILS % 73.9 % (38.7-80.0); PLATELET COUNT 94 x10e3/uL (140-360); RED BLOOD COUNT 1.83 x10e6/uL (3.6-5.1); RED CELL DISTRIBUTION WIDTH 19.7 % (11.7-14.4)
[2018-05-11 13:47] LABS: INR 1.01; PROTHROMBIN TIME 13.8 seconds (11.9-14.5)
[2018-05-11 13:54] LABS: ALBUMIN 2.2 g/dL (3.5-5.0); ALBUMIN/GLOBULIN RATIO 0.6 (0.8-2.0); ANION GAP 11.1 mmol/L (8-16); CALCIUM 7.4 mg/dL (8.4-10.2); CREATININE, SERUM 1.6 mg/dL (0.57-1.11); POTASSIUM 4.1 mmol/L (3.5-5.1)
[2018-05-11 13:59] LABS: HEMATOCRIT 19.6 % (34.2-44.1); HEMOGLOBIN 5.9 g/dL (12.0-16.0)
[2018-05-11] MEDS ORDERED: SODIUM CHLORIDE 0.9% 250ML 250 ML IV ONE (14:30)
[2018-05-11] MEDS ORDERED: SODIUM CHLORIDE 0.9% 1000ML 1,000 ML IV SCH (14:45)
[2018-05-11] MEDS ORDERED: PANTOPRAZOLE INJ 80 MG in SODIUM CHLORIDE 0.9% 100 ML IV SCH (15:30)
[2018-05-11] MEDS ORDERED: DEXTROSE 50% SYRINGE 50 ML IV PRN (15:30)
[2018-05-11] MEDS ORDERED: PANTOPRAZOLE 40 MG 10ML VIAL IV ONE (15:45)
--- NOTE | 2018-05-11 15:47 | NUR ---
PATIENT UNCERTAIN OF HOME MEDS; LEFT MSG WITH SON TO CALL BACK
[2018-05-11] MEDS: INSULIN LISPRO 100 UNIT/1 ML 3ML VIAL SQ SCH ×2 (16:30→21:00)
[2018-05-11 17:00] VITALS: BP 84/54
[2018-05-11 17:02] LABS: CREATINE KINASE MB 1.9 ng/mL (0-5.0)
[2018-05-11 17:33] VITALS: BP 54/64
[2018-05-11] MEDS: PANTOPRAZOL 40MG/SOD CHL 0.9% 50 ML IV SCH ×2 (17:56→21:37)
[2018-05-11 18:00] VITALS: BP 101/63
[2018-05-11 19:00] VITALS: BP 94/60
[2018-05-11] MEDS ORDERED: SODIUM CHLORIDE 0.9% 250ML 250 ML ONE (20:16)
[2018-05-11] MEDS ORDERED: HYDROMORPHONE 1MG/1ML INJ IV PRN (21:30)
[2018-05-11] MEDS: SODIUM CHLORIDE 0.9% 1000ML 1,000 ML IV SCH (21:31)
[2018-05-11] MEDS: TRAZODONE HCL 50 MG TAB PO SCH (21:37)
[2018-05-11] MEDS: GABAPENTIN 300 MG CAP PO SCH (21:37)
[2018-05-11] MEDS: HYDROMORPHONE 2MG/ML 2 MG/ML ML IV PRN (21:37)
[2018-05-11 23:59] VITALS: BP 81/54
[2018-05-12] VITALS (19 sets, daily range): BP systolic 72–112; BP diastolic 56–77
[2018-05-12] MEDS ORDERED: SODIUM CHLORIDE 0.9% 250ML 250 ML ONE (00:09)
[2018-05-12] MEDS: PANTOPRAZOL 40MG/SOD CHL 0.9% 50 ML IV SCH ×5 (03:02→22:00)
[2018-05-12] MEDS: HYDROMORPHONE 2MG/ML 2 MG/ML ML IV PRN (03:03)
[2018-05-12] MEDS: SODIUM CHLORIDE 0.9% 1000ML 1,000 ML IV SCH ×4 (03:53→23:18)
[2018-05-12 05:08] LABS: HEMOGLOBIN 8.7 g/dL (12.0-16.0)
[2018-05-12 05:41] LABS: ANION GAP 11.3 mmol/L (8-16); CALCIUM 7.2 mg/dL (8.4-10.2); CREATINE KINASE MB 1.2 ng/mL (0-5.0); CREATININE, SERUM 1.15 mg/dL (0.57-1.11); POTASSIUM 4.3 mmol/L (3.5-5.1)
[2018-05-12 05:50] LABS: FERRITIN 55.57 ng/mL (4.63-204.00)
[2018-05-12 06:10] LABS: FOLATE 4.2 ng/mL (7.0-15.4)
[2018-05-12] MEDS ORDERED: LASIX40 MG PO (07:08)
[2018-05-12] MEDS: INSULIN LISPRO 100 UNIT/1 ML 3ML VIAL SQ SCH ×4 (07:30→21:00)
[2018-05-12] MEDS: GABAPENTIN 300 MG CAP PO SCH ×2 (11:30→17:00)
[2018-05-12] MEDS: LACTULOSE SYRUP 20 GM/30 ML UDC PO SCH (11:30)
[2018-05-12] MEDS ORDERED: SODIUM CHLORIDE 0.9% 500ML 500 ML ONE (11:55)
[2018-05-12 13:50] LABS: HEMATOCRIT 30.2 % (34.2-44.1); HEMOGLOBIN 9.6 g/dL (12.0-16.0)
[2018-05-12 14:17] LABS: CREATINE KINASE MB 0.9 ng/mL (0-5.0)
[2018-05-12 18:38] LABS: HEMATOCRIT 25.8 % (34.2-44.1); HEMOGLOBIN 8.1 g/dL (12.0-16.0)
[2018-05-12] MEDS ORDERED: PROPOFOL IV EMULSION 10 MG/ML 50 ML VIAL ONE (18:45)
[2018-05-12] MEDS ORDERED: GLUCAGON FOR INJ 1 MG VIAL ONE (18:45)
[2018-05-12] MEDS ORDERED: METOCLOPRAMIDE HCL 10 MG/2ML VIAL ONE (18:45)
[2018-05-12] MEDS: TRAZODONE HCL 50 MG TAB PO SCH (23:16)
[2018-05-13] VITALS (14 sets, daily range): BP systolic 81–136; BP diastolic 51–78
--- NOTE | 2018-05-13 02:23 | NUR ---
egd completed in endo and back to room this evening. patient alert and asking for food. dr. jenkins at bedside earlier and spoke with patient and son. pt can have full liquids. vss. pt denies pain.
[2018-05-13] MEDS: PANTOPRAZOL 40MG/SOD CHL 0.9% 50 ML IV SCH ×4 (03:00→17:12)
--- NOTE | 2018-05-13 04:48 | Operative Report ---
DATE OF PROCEDURE: 05/12/2018 SURGEON: Gerson Denton MD PROCEDURE: EGD with fulguration of gastric vascular ectasia with APC probe. INDICATIONS FOR PROCEDURE: Anemia and history of GAVE. MEDICATIONS: The patient was done under MAC, please see anesthesiologist's note. PROCEDURE IN DETAIL: With the patient in the left lateral decubitus position, flexible fiberoptic Olympus gastroscope was introduced into the esophagus under direct visualization without any difficulty. Grade 1 esophageal varices were noted without active bleeding or stigmata of recent hemorrhage. There was a small sliding hiatal hernia noted and the vascular ectasia was noted in the hiatal hernia sac and somewhat fulgurated with the APC probe. The scope was then advanced with ease into the stomach and numerous vascular ectasias were noted in the antrum and fulguration was carried out with the APC probe with excellent hemostasis. Pylorus was normal in contour and shape. It was intubated with ease and the scope was advanced all the way to the second portion of the duodenum. The scope was then withdrawn slowly. Mucosa overlying the proximal second portion and the duodenal bulb appeared to be within normal limits. The scope was then withdrawn back into the stomach and retroflexed. Mucosa overlying the fundus and the cardia grossly appeared to be within normal limits. The scope was then straightened out and it was subsequently withdrawn. The patient tolerated the procedure well. IMPRESSION: 1. Grade 1 esophageal varices without active bleeding or stigmata of recent hemorrhage. 2. Small sliding hiatal hernia. 3. Vascular ectasia and hiatal hernia sac fulgurated with APC probe. 4. Gastric antral vascular ectasia fulgurated with APC probe. PLAN: Follow H and H. Add Carafate 1 g p.o. a.c. t.i.d. and at bedtime. Start full liquid diet. Gerson Denton MD [facility] /[id number] cc: MD John Guillen MD
[2018-05-13] MEDS: SODIUM CHLORIDE 0.9% 1000ML 1,000 ML IV SCH (06:21)
[2018-05-13 07:16] LABS: ANION GAP 7.9 mmol/L (8-16); BLOOD UREA NITROGEN 18 mg/dL (7-26); BUN/CREATININE RATIO 21 (6-25); CALCIUM 7.2 mg/dL (8.4-10.2); CARBON DIOXIDE 27 mmol/L (22-29); CHLORIDE 110 mmol/L (98-107); CREATININE, SERUM 0.87 mg/dL (0.57-1.11); EST GLOMERULAR FILTRATION RATE > 60 ML/MIN (60-); GLUCOSE 80 mg/dL (74-118); POTASSIUM 3.9 mmol/L (3.5-5.1); SODIUM 141 mmol/L (136-145)
[2018-05-13 07:16] LABS: BASOPHILS % 0.7 % (0.0-1.0); EOSINOPHILS # (AUTO) 0.1 (0.0-0.4); EOSINOPHILS % 3.7 % (0.0-6.0); HEMATOCRIT 24.2 % (34.2-44.1); HEMOGLOBIN 7.7 g/dL (12.0-16.0); LYMPHOCYTES # (AUTO) 0.6 (1.0-3.2); LYMPHOCYTES % 22.7 % (18.0-39.1); MEAN CORPUSCULAR HEMOGLOBIN 30.8 pg (28-32); MEAN CORPUSCULAR HGB CONC 31.8 g/dL (31-35); MEAN CORPUSCULAR VOLUME 96.8 fL (81-99); MONOCYTES # (AUTO) 0.2 (0.2-0.8); MONOCYTES % 8.8 % (4.4-11.3); NEUTROPHILS # (AUTO) 1.7 (2.1-6.9); NEUTROPHILS % 63.4 % (38.7-80.0); PLATELET COUNT 54 x10e3/uL (140-360); RED CELL DISTRIBUTION WIDTH 23.2 % (11.7-14.4)
--- NOTE | 2018-05-13 07:16 | NUR ---
nursing report given to day shift RN
[2018-05-13] MEDS: INSULIN LISPRO 100 UNIT/1 ML 3ML VIAL SQ SCH ×4 (07:30→20:53)
[2018-05-13] MEDS: SUCRALFATE 1 GM TAB PO SCH ×4 (07:32→21:03)
[2018-05-13] MEDS: GABAPENTIN 300 MG CAP PO SCH ×2 (10:00→17:14)
[2018-05-13] MEDS: LACTULOSE SYRUP 20 GM/30 ML UDC PO SCH ×3 (10:00→21:03)
[2018-05-13 12:09] LABS: HEMATOCRIT 26.8 % (34.2-44.1); HEMOGLOBIN 8.6 g/dL (12.0-16.0)
[2018-05-13 18:22] LABS: HEMATOCRIT 30.7 % (34.2-44.1); HEMOGLOBIN 9.5 g/dL (12.0-16.0)
[2018-05-13] MEDS: TRAZODONE HCL 50 MG TAB PO SCH (21:03)
[2018-05-14] VITALS (9 sets, daily range): BP systolic 93–134; BP diastolic 59–104
[2018-05-14] MEDS: PANTOPRAZOL 40MG/SOD CHL 0.9% 50 ML IV SCH ×3 (00:11→10:16)
--- NOTE | 2018-05-14 05:36 | NUR ---
dr Josr Denton made round, and ordered to change diet to ADA diet mechanical soft 1800 calories. order carried out.
[2018-05-14 05:42] LABS: BASOPHILS % 0.5 % (0.0-1.0); EOSINOPHILS # (AUTO) 0.1 (0.0-0.4); EOSINOPHILS % 3.7 % (0.0-6.0); HEMATOCRIT 23.7 % (34.2-44.1); HEMOGLOBIN 7.6 g/dL (12.0-16.0); LYMPHOCYTES # (AUTO) 0.8 (1.0-3.2); LYMPHOCYTES % 20.6 % (18.0-39.1); MEAN CORPUSCULAR HEMOGLOBIN 31.3 pg (28-32); MEAN CORPUSCULAR HGB CONC 32.1 g/dL (31-35); MEAN CORPUSCULAR VOLUME 97.5 fL (81-99); MONOCYTES # (AUTO) 0.4 (0.2-0.8); MONOCYTES % 10.1 % (4.4-11.3); NEUTROPHILS # (AUTO) 2.5 (2.1-6.9); NEUTROPHILS % 64.8 % (38.7-80.0); PLATELET COUNT 59 x10e3/uL (140-360); RED BLOOD COUNT 2.43 x10e6/uL (3.6-5.1); RED CELL DISTRIBUTION WIDTH 22.6 % (11.7-14.4)
[2018-05-14 05:59] LABS: ALBUMIN 1.8 g/dL (3.5-5.0); ALBUMIN/GLOBULIN RATIO 0.5 (0.8-2.0); ANION GAP 7.8 mmol/L (8-16); CALCIUM 7.4 mg/dL (8.4-10.2); CREATININE, SERUM 0.98 mg/dL (0.57-1.11); POTASSIUM 3.8 mmol/L (3.5-5.1)
[2018-05-14] MEDS: INSULIN LISPRO 100 UNIT/1 ML 3ML VIAL SQ SCH ×4 (07:30→21:35)
[2018-05-14] MEDS: SUCRALFATE 1 GM TAB PO SCH ×5 (07:30→21:31)
[2018-05-14] MEDS: LACTULOSE SYRUP 20 GM/30 ML UDC PO SCH ×2 (09:00→16:34)
[2018-05-14] MEDS: GABAPENTIN 300 MG CAP PO SCH ×2 (09:00→16:34)
[2018-05-14] MEDS: HYDROMORPHONE 2MG/ML 2 MG/ML ML IV PRN ×2 (10:16→21:44)
[2018-05-14] MEDS: DIPHENHYDRAMINE HCL 25 MG CAP PO PRN (12:00)
--- NOTE | 2018-05-14 13:30 | NUR ---
transferred patient to [facility]
--- NOTE | 2018-05-14 13:58 | NUR ---
Received transfer from [facility], alert and responsive, states has been having itching, was medicated this morning, will follow and treat, IV line left EJ in place, call light within reach, denies pain at this time, will monitor
[2018-05-14] MEDS ORDERED: FOLIC ACID 1 MG TAB PO ONE (20:00)
--- NOTE | 2018-05-14 20:00 | NUR ---
Patient refused SCD.
[2018-05-14] MEDS ORDERED: SODIUM CHLORIDE 0.9% 250ML 250 ML ONE (21:15)
[2018-05-14] MEDS: TRAZODONE HCL 50 MG TAB PO SCH (21:31)
[2018-05-14] MEDS: IRON SUCROSE 100 MG in SODIUM CHLORIDE 0.9% 100 ML 100 ML IV SCH (21:45)
[2018-05-15] VITALS (7 sets, daily range): BP systolic 99–119; BP diastolic 53–68
[2018-05-15] MEDS ORDERED: CYANOCOBALAMIN INJ 1,000 MCG/ML VIAL IM ONE
[2018-05-15 05:46] LABS: BASOPHILS % 0.3 % (0.0-1.0); EOSINOPHILS # (AUTO) 0.1 (0.0-0.4); EOSINOPHILS % 4.4 % (0.0-6.0); HEMOGLOBIN 7.5 g/dL (12.0-16.0); LYMPHOCYTES # (AUTO) 0.5 (1.0-3.2); LYMPHOCYTES % 16.7 % (18.0-39.1); MEAN CORPUSCULAR HEMOGLOBIN 30.9 pg (28-32); MEAN CORPUSCULAR HGB CONC 31.3 g/dL (31-35); MEAN CORPUSCULAR VOLUME 98.8 fL (81-99); MONOCYTES # (AUTO) 0.3 (0.2-0.8); MONOCYTES % 10.7 % (4.4-11.3); NEUTROPHILS # (AUTO) 2.1 (2.1-6.9); NEUTROPHILS % 67.6 % (38.7-80.0); PLATELET COUNT 60 x10e3/uL (140-360); RED BLOOD COUNT 2.43 x10e6/uL (3.6-5.1); RED CELL DISTRIBUTION WIDTH 22.5 % (11.7-14.4)
[2018-05-15 06:09] LABS: ALBUMIN 1.8 g/dL (3.5-5.0); ALBUMIN/GLOBULIN RATIO 0.5 (0.8-2.0); CALCIUM 7.4 mg/dL (8.4-10.2); CREATININE, SERUM 1.18 mg/dL (0.57-1.11)
--- NOTE | 2018-05-15 07:15 | NUR ---
PT RESTING IN BED AA0X3. FAMILY IS AT BEDSIDE. PT DENIES PAIN AT THIS TIME. PT HAS A LEFT EJ 18 SL . PT HAS A DIAPER ON . AKA OT THE RIGHT LOWER EXTREMITY. PT UNDERSTANDS PLAN OF CARE OF REASON WHY SHE WILL STAY TODAY ( MD LOPEZ STATES WE WILL MONITOR H&H ONE MORE DAY). WILL CONTINUE TO CARE FOR PT AT THIS TIME. SIDE RAILSX2, BED WHEELS LOCKED ,CALL LIGHT IS WITHIN EASY REACH, INSTRUCTED TO CALL FOR ASSISTANCE IF NEEDED
[2018-05-15] MEDS: FOLIC ACID 1 MG TAB PO SCH (08:42)
[2018-05-15] MEDS: LACTULOSE SYRUP 20 GM/30 ML UDC PO SCH ×2 (08:42→17:09)
[2018-05-15] MEDS: SUCRALFATE 1 GM TAB PO SCH ×4 (08:42→21:00)
[2018-05-15] MEDS: GABAPENTIN 300 MG CAP PO SCH ×2 (08:42→17:09)
[2018-05-15] MEDS: CYANOCOBALAMIN INJ 1,000 MCG/ML VIAL IM SCH (08:42)
[2018-05-15] MEDS: PANTOPRAZOLE SOD 40 MG TABEC PO SCH (08:42)
[2018-05-15] MEDS: INSULIN LISPRO 100 UNIT/1 ML 3ML VIAL SQ SCH ×4 (08:43→21:00)
--- NOTE | 2018-05-15 12:35 | Progress Note ---
DATE: Internal Medicine Progress Note SUBJECTIVE: The patient is doing better. Still is very confused and sleepy. PHYSICAL EXAMINATION: HEART: Showed regular rhythm. No murmur or added sound. LUNGS: Clear bilaterally. ABDOMEN: Soft. EXTREMITIES: Showed right above-knee amputation. FINAL IMPRESSION: 1. Acute anemia secondary to upper gastrointestinal bleed. 2. Cirrhosis of the liver. 3. Hepatic encephalopathy. 4. Diabetes mellitus type 2 with diabetic neuropathy. PLAN OF TREATMENT: Continue monitoring hemoglobin and hematocrit. Continue lactulose. Continue B12. Continue iron infusion. MD IMANI [facility] /[id number]
[2018-05-15] MEDS: LIDOCAINE 5% PATCH TP SCH (13:20)
[2018-05-15] MEDS: DIPHENHYDRAMINE HCL 25 MG CAP PO PRN (15:14)
[2018-05-15] MEDS: HYDROMORPHONE 2MG/ML 2 MG/ML ML IV PRN (15:14)
[2018-05-15] MEDS: IRON SUCROSE 100 MG in SODIUM CHLORIDE 0.9% 100 ML 100 ML IV SCH (20:00)
--- NOTE | 2018-05-15 20:00 | NUR ---
INITIAL ASSESSMENT COMPLETE, VS STABLE, NO DISTRESS NOTED, PT WITH LT AKA, DIAPER ON PT, LEFT EJ INTACT, CALL LIGHT IN REACH,
[2018-05-15] MEDS: TRAZODONE HCL 50 MG TAB PO SCH (21:00)
[2018-05-16 00:24] VITALS: BP 117/65
--- NOTE | 2018-05-16 00:30 | NUR ---
pt in bed, no distress noted, call light in reach, bed changed, vs stable
[2018-05-16] MEDS: HYDROMORPHONE 2MG/ML 2 MG/ML ML IV PRN (03:28)
[2018-05-16] MEDS: DIPHENHYDRAMINE HCL 25 MG CAP PO PRN (03:28)
[2018-05-16 04:00] VITALS: BP 106/56
[2018-05-16 06:05] LABS: BASOPHILS % 0.6 % (0.0-1.0); EOSINOPHILS # (AUTO) 0.2 (0.0-0.4); EOSINOPHILS % 5.6 % (0.0-6.0); HEMATOCRIT 25.1 % (34.2-44.1); LYMPHOCYTES # (AUTO) 0.6 (1.0-3.2); LYMPHOCYTES % 19.7 % (18.0-39.1); MEAN CORPUSCULAR HEMOGLOBIN 31.4 pg (28-32); MEAN CORPUSCULAR HGB CONC 31.9 g/dL (31-35); MEAN CORPUSCULAR VOLUME 98.4 fL (81-99); MONOCYTES # (AUTO) 0.4 (0.2-0.8); MONOCYTES % 13.5 % (4.4-11.3); NEUTROPHILS # (AUTO) 1.9 (2.1-6.9); NEUTROPHILS % 60.3 % (38.7-80.0); PLATELET COUNT 65 x10e3/uL (140-360); RED BLOOD COUNT 2.55 x10e6/uL (3.6-5.1); RED CELL DISTRIBUTION WIDTH 22.6 % (11.7-14.4)
--- NOTE | 2018-05-16 06:37 | NUR ---
pt in bed, no distress noted, call light in reach, vs stable
--- NOTE | 2018-05-16 07:20 | NUR ---
pt resting in bed aa0x3. pt c/o pain to neck 10/07, will administer morning lidocaine patch for comfort. pt has her left ej 18 sl patent and dry. pt refused to be turned. states she can turn herself. will continue monitor pt at this time, side railsx2, bed wheels locked, call light is within easy reach, instructed to call for assistance if needed
[2018-05-16] MEDS: INSULIN LISPRO 100 UNIT/1 ML 3ML VIAL SQ SCH (07:30)
[2018-05-16 07:55] VITALS: BP 106/59
[2018-05-16 08:25] VITALS: BP 106/59
[2018-05-16] MEDS: SUCRALFATE 1 GM TAB PO SCH (08:25)
[2018-05-16] MEDS: CYANOCOBALAMIN INJ 1,000 MCG/ML VIAL IM SCH (08:26)
[2018-05-16] MEDS: GABAPENTIN 300 MG CAP PO SCH (08:26)
[2018-05-16] MEDS: LIDOCAINE 5% PATCH TP SCH (08:26)
[2018-05-16] MEDS: FOLIC ACID 1 MG TAB PO SCH (08:26)
[2018-05-16] MEDS: PANTOPRAZOLE SOD 40 MG TABEC PO SCH (08:26)
[2018-05-16] MEDS: LACTULOSE SYRUP 20 GM/30 ML UDC PO SCH (08:26)
--- NOTE | 2018-05-16 08:38 | NUR ---
SPOKE WITH MD Josr MESSINA REGARDING PT DC . MD SHAR BYNUM. STATES TO FOLLOW UP AT HIS OFFICE IN 1-2 WEEKS
[2018-05-16] MEDS ORDERED: TRAMADOL/APAP 37.5MG-325MG TAB PO PRN (08:45)
--- NOTE | 2018-05-16 08:52 | NUR ---
FAXING CLINICALS TO [facility] FOR RESUME OF CARE
[2018-05-16] MEDS ORDERED: ULTRACET TABLE1 EACH PO (09:34)
--- NOTE | 2018-05-16 09:53 | NUR ---
discharge instructions and prescriptions given. pt verbalized understanding . iv dc pressure dressing applied and taped. pt is now waiting on ride
--- NOTE | 2018-05-16 11:29 | NUR ---
PT OFF UNIT TO HOME VIA WHEEL CHAIR TO HOME
[2018-05-16 11:58] VITALS: BP 93/56
[2018-05-16] MEDS ORDERED: LIDOCAINE 5% PATCH TP SCH (12:50)
--- NOTE | 2018-05-17 05:40 | Discharge Summary ---
HOSPITAL COURSE: This is a 67-year-old female, who had a past medical history positive for cirrhosis of the liver, history of diabetes, history of hypertension, status post right above-knee amputation, came with anemia and confusion. She was found to have portal hypertension with varicose veins. She underwent EGD with fulguration with APC probe. Received blood transfusion, iron infusion, . Hemoglobin is 8.0 right now, ammonia level is normal. The patient is complaining of neck pain. She might go home today. PHYSICAL EXAMINATION: VITAL SIGNS: Blood pressure 106/69, temperature 98.5, heart rate 97 per minute, respiratory rate 18 per minute, and oxygen saturation 94%. HEART: Showed regular rhythm. LUNGS: Clear bilaterally. ABDOMEN: Soft. EXTREMITIES: Show right above-knee amputation. LABORATORY DATA: Blood work, with a sodium 137, potassium 4.0, chloride 107, CO2 of 26, BUN 13, creatinine 1.18, glucose 155. CBC, white blood count 3.19, hemoglobin 8.0, hematocrit 25.1, and platelet count 65,000. PT is 13.8, INR 1.01, PTT 32.0. AST 31, ALT 14, total bilirubin 1.1, alkaline phosphatase 110. FINAL IMPRESSION: 1. Upper gastrointestinal bleed secondary to varicose veins, status post fulguration. 2. Acute anemia secondary to upper gastrointestinal bleed secondary to portal hypertension and varicose veins . 3. Confusion secondary to hepatic encephalopathy, which is resolved. 4. Neck pain. 5. Uncontrolled diabetes mellitus type 2 with diabetic neuropathy. 6. Cirrhosis of the liver. PLAN OF TREATMENT: Continue with gabapentin 600 mg twice a day, Ultram 50 mg q.6 hours as needed for pain, twice a day, Lidoderm patch . Continue trazodone 200 mg at bedtime, Protonix 40 mg daily. Continue Carafate 1 g before meals folic acid 1 mg daily. FOLLOWUP: The patient is going to be discharged today. Follow up with me in a week. Home health has been arranged. MD IMANI [facility]/[facility] /[id number]
== END 2018-05-16 11:10 | disposition home health service (06) | DRG 432 ==
LOC: ER 11:50 → ERHOLD 15:32 → ICU 16:13 → IMCU 05-13 10:42 → MED/SURG 05-14 13:50
PROVIDERS: ADMIT Internal Medicine; ATTEND Internal Medicine
PROC: 30233N1 Transfusion of Nonautologous Red Blood Cells into Peripheral Vein, Percutaneous Approach (ICD-10-PCS; 2018-05-11)
PROC: 06L38ZZ Occlusion of Esophageal Vein, Via Natural or Artificial Opening Endoscopic (ICD-10-PCS; principal; 2018-05-12 21:51)
DX: K74.60 Unspecified cirrhosis of liver (principal); I85.11 Secondary esophageal varices with bleeding; K31.811 Angiodysplasia of stomach and duodenum with bleeding; D62 Acute posthemorrhagic anemia; K76.6 Portal hypertension; K44.9 Diaphragmatic hernia without obstruction or gangrene; J44.9 Chronic obstructive pulmonary disease, unspecified; K21.9 Gastro-esophageal reflux disease without esophagitis; E11.22 Type 2 diabetes mellitus with diabetic chronic kidney disease; I12.9 Hypertensive chronic kidney disease with stage 1 through stage 4 chronic kidney disease, or unspecified chronic kidney disease; N18.3 Chronic kidney disease, stage 3 (moderate); E78.5 Hyperlipidemia, unspecified; K72.90 Hepatic failure, unspecified without coma; K76.0 Fatty (change of) liver, not elsewhere classified; E11.40 Type 2 diabetes mellitus with diabetic neuropathy, unspecified; E11.65 Type 2 diabetes mellitus with hyperglycemia
CPT/HCPCS: 36415; 43255; 80048; 80053; 82140; 82270; 82550; 82553; 82607; 82728; 82746; 82948; 83540; 84466; 84484; 85014; 85018; 85025; 85045; 85610; 85730; 86850; 86900; 86920; 93005; 99284; J1610; J1756; J2765; J3420; J7030; J7040; J7050; P9016

== ENCOUNTER 2018-10-06 18:03 | Inpatient (IN) | payer MEDICARE, BC ==
[~2018-10-06] VITALS: Ht 165.1 cm; Wt 101.6 kg
[~2018-10-06 18:03] MED LIST changes: +LASIX40 MG PO; +ULTRACET TABLE1 EACH PO
[2018-10-06 18:34] LABS: BASOPHILS % 0.2 % (0.0-1.0); EOSINOPHILS # (AUTO) 0.3 (0.0-0.4); EOSINOPHILS % 7.2 % (0.0-6.0); LYMPHOCYTES # (AUTO) 0.7 (1.0-3.2); LYMPHOCYTES % 16.8 % (18.0-39.1); MEAN CORPUSCULAR HEMOGLOBIN 32.9 pg (28-32); MEAN CORPUSCULAR HGB CONC 31.8 g/dL (31-35); MEAN CORPUSCULAR VOLUME 103.5 fL (81-99); MONOCYTES # (AUTO) 0.4 (0.2-0.8); MONOCYTES % 9.8 % (4.4-11.3); NEUTROPHILS # (AUTO) 2.8 (2.1-6.9); NEUTROPHILS % 65.5 % (38.7-80.0); PLATELET COUNT 86 x10e3/uL (140-360); RED BLOOD COUNT 1.73 x10e6/uL (3.6-5.1); RED CELL DISTRIBUTION WIDTH 18.2 % (11.7-14.4)
[2018-10-06 18:35] LABS: BILIRUBIN,URINE NEGATIVE (NEGATIVE); CLARITY,URINE CLEAR (CLEAR); COLOR,URINE YELLOW (YELLOW); KETONES,URINE NEGATIVE (NEGATIVE); LEUKOCYTE ESTERASE ,URINE NEGATIVE (NEGATIVE); NITRITE,URINE NEGATIVE (NEGATIVE); PROTEIN,URINE DIPSTICK NEGATIVE (NEGATIVE); URINE UROBILINOGEN 1 mg/dL (0.2 - 1)
[2018-10-06 18:45] LABS: INR 1.07; PROTHROMBIN TIME 14.4 seconds (11.9-14.5)
[2018-10-06] MEDS ORDERED: SODIUM CHLORIDE 0.9% 1000ML 1,000 ML IV SCH (18:45)
[2018-10-06 18:46] LABS: PARTIAL THROMBOPLASTIN TIME 34.6 seconds (23.8-35.5)
[2018-10-06 18:48] LABS: HEMATOCRIT 17.9 % (34.2-44.1); HEMOGLOBIN 5.7 g/dL (12.0-16.0)
[2018-10-06] MEDS ORDERED: SODIUM CHLORIDE 0.9% 1000ML 1,000 ML ONE (18:50)
[2018-10-06 18:59] LABS: EPITHELIAL CELLS,URINE RARE /LPF
[2018-10-06] MEDS ORDERED: FAMOTIDINE 20 MG/2 ML VIAL IV ONE ×2 (19:00→23:31)
[2018-10-06] MEDS ORDERED: LACTULOSE SYRUP 20 GM/30 ML UDC PO PRN (19:00)
[2018-10-06] MEDS ORDERED: SODIUM CHLORIDE 0.9% 250ML 250 ML IV ONE (19:00)
[2018-10-06 19:02] LABS: ALANINE AMINOTRANSFERASE 14 IU/L (0-55); ALBUMIN 2.1 g/dL (3.5-5.0); ALBUMIN/GLOBULIN RATIO 0.8 (0.8-2.0); ALKALINE PHOSPHATASE 158 IU/L (40-150); ANION GAP 7.1 mmol/L (8-16); BLOOD UREA NITROGEN 19 mg/dL (7-26); BUN/CREATININE RATIO 23 (6-25); CALCIUM 7.8 mg/dL (8.4-10.2); CARBON DIOXIDE 37 mmol/L (22-29); CHLORIDE 99 mmol/L (98-107); CREATINE KINASE 41 IU/L (29-168); CREATININE, SERUM 0.81 mg/dL (0.57-1.11); EST GLOMERULAR FILTRATION RATE > 60 ML/MIN (60-); GLUCOSE 100 mg/dL (74-118); POTASSIUM 3.1 mmol/L (3.5-5.1); SODIUM 140 mmol/L (136-145)
--- NOTE | 2018-10-06 19:30 | NUR ---
ATTEMPTED TO OBTAIN MED LIST. PT DOES NOT KNOW MEDICATIONS. PATIENT STATES THAT FAMILY TO VISIT [facility] AND CAN OBTAIN LIST FROM SISTER.
[2018-10-06] MEDS: SODIUM CHLORIDE 0.9% 1000ML 1,000 ML IV SCH ×2 (19:40→22:58)
--- NOTE | 2018-10-06 20:06 | Diagnostic Imaging Report ---
Examination: Single AP view of the chest. COMPARISON: CT chest 07/28/2017 INDICATION: AMS, weakness IMPRESSION: 1. Lines and Tubes: None 2. Markedly hypoinflated lungs. No consolidation or effusion. 3. Prominent cardiac silhouette and central pulmonary vascular crowding due to low lung volumes. 4. No acute bony abnormalities. Signed by: Dr. Girma Jamison M.D. on 10/06/2018 8:03 PM
--- NOTE | 2018-10-06 20:06 | Diagnostic Imaging Report ---
EXAMINATION: Head CT without contrast. HISTORY:Altered mental status. COMPARISON:None. TECHNIQUE: Multidetector axial images were obtained from the foramen magnum to the vertex without contrast. The images were reconstructed using brain and bone algorithms. Thin section brain images were reformatted into coronal and sagittal planes. Dose modulation, iterative reconstruction, and/or weight based adjustment of the mA/kV was utilized to reduce the radiation dose to as low as reasonably achievable. Intravenous contrast: None IMAGE QUALITY: Acceptable. FINDINGS: Skull/scalp: Nonspecific left parieto-occipital scalp soft tissue swelling that extends to the right parietal scalp near the vertex. No acute depressed or displaced calvarial fracture. Parenchyma: Nonspecific few, scattered supratentorial white matter hypodensity are likely related to small vessel ischemic changes. No acute hemorrhage, mass or acute major vascular territorial infarct. Arteries: No density suggestive of thrombosis. Atherosclerotic calcification in bilateral carotid siphon. Dural sinuses: No abnormal density suggestive of thrombosis. Ventricles: No hydrocephalus or displacement. Extra-axial spaces: No abnormal density. Brain volume: Mild generalized cerebral volume loss. Craniocervical junction: No mass, Chiari malformation, or basilar invagination. Sella: No mass. Paranasal/mastoid sinuses: Partial opacification of right mastoid air cells. IMPRESSION: 1. Nonspecific moderate left parieto-occipital and right parietal scalp soft tissue swelling may represent hematoma if there is clinical history of trauma or represent soft tissue edema and inflammation in appropriate clinical setting. No acute fracture or underlying osseous abnormality. 2. No acute intracranial abnormality. 3. Mild supratentorial white matter microvascular ischemic changes. 4. Mild generalized cerebral volume loss. Signed by: Dr. Monae Jordan M.D. on 10/06/2018 8:02 PM
[2018-10-06] MEDS ORDERED: POTASSIUM CHLORIDE 20MEQ/15ML UDC ONE (20:28)
[2018-10-06] MEDS ORDERED: POTASSIUM CHLORIDE 20MEQ/15ML UDC PO ONE (20:30)
[2018-10-06 21:00] VITALS: BP 102/60
--- NOTE | 2018-10-06 21:40 | NUR ---
Received patient from ER via stretcher. Lethargic, easily arouse, obeys commands. Denies pain at this time. No resp distress at this time. Has 02 n/c @ 2L. Call light within reach and instructed to call for assistance. Bed alarm on.
[2018-10-06 21:48] VITALS: BP 111/60
[2018-10-06 23:56] VITALS: BP 109/62
[2018-10-07] VITALS (9 sets, daily range): BP systolic 108–138; BP diastolic 57–84
--- NOTE | 2018-10-07 00:30 | NUR ---
Started blood transfusion at this time. DENAE, patient tolerated well.
[2018-10-07] MEDS ORDERED: XIFAXAN550 MG (01:49)
[2018-10-07] MEDS ORDERED: PANTOPRAZOLE SO40 MG PO (01:49)
[2018-10-07] MEDS ORDERED: BENADRYL25 M1 (01:49)
[2018-10-07] MEDS ORDERED: SUCRALFATE1 GM PO (01:49)
[2018-10-07] MEDS ORDERED: LACTULOSE20 GM/30 M PO (01:49)
[2018-10-07] MEDS ORDERED: AMLODIPINE BESYL5 MG PO (01:49)
[2018-10-07] MEDS ORDERED: DETROL LA4 MG PO (01:49)
[2018-10-07] MEDS ORDERED: PROPRANOLOL HCL20 MG (01:49)
[2018-10-07] MEDS ORDERED: TRAZODONE HCL300 MG (01:52)
--- NOTE | 2018-10-07 04:00 | NUR ---
Completed first unit of blood. Patient tolerated well.
[2018-10-07] MEDS ORDERED: SODIUM CHLORIDE 0.9% 250ML 250 ML ONE (04:25)
[2018-10-07] MEDS: FUROSEMIDE INJ 10 MG/ML 2 ML VIAL IV PRN ×3 (04:30→14:47)
--- NOTE | 2018-10-07 04:30 | NUR ---
Started second unit of blood at this time.
--- NOTE | 2018-10-07 07:00 | NUR ---
BEDSIDE SHIFT CHANGE REPORT FROM SAMAN MUNOZ. PT DENIES NEEDS AT THIS TIME.
[2018-10-07] MEDS: SODIUM CHLORIDE 0.9% 1000ML 1,000 ML IV SCH ×2 (10:57→18:57)
--- NOTE | 2018-10-07 15:20 | NUR ---
Nutrition Screen Note RD Recommendation for Physician: Continue diet as ordered Plan of Care: RD following, monitoring for tolerance and adequacy Nutrition reason for involvement: Nutrition Risk Trigger - MST Primary Diagnose(s):severe anemia, hepatic encephalopathy PMH: Right AKA, T2DM, liver cirrhosis, anemia, Ht:65 in Wt:224lb BMI:37.3 kg/m2 IBW:125lb +/-10% IBW not adjusted for right AKA RD Assessment: (10/07/2018) Chart reviewed. Labs and meds reviewed. Initial encounter with patient. Pt lethargic and confused. Pt ate about half of her lunch tray. Pt was not able to provide a nutrition hx at time of visit. No N,V. Overweight/obesity. Pt was able to feed herself. No known food allergies. Current Diet:Cardiac Malnutrition Evaluation (10/07/2018) The patient does not meet criteria for a specified degree of malnutrition at this time. Will re-evaluate at follow-up as appropriate. Diet Education Needs Assessment: Diet education not indicated. Nutrition Care Level: Low Signed: Gaudencio Curtis RD, LD, [facility]
[2018-10-08] VITALS (8 sets, daily range): BP systolic 116–136; BP diastolic 60–74
[2018-10-08] MEDS ORDERED: RIFAXIMIN 550 MG TABLET PO STA (02:18)
--- NOTE | 2018-10-08 02:43 | NUR ---
Dr. Rani Denton here for rounding. Orders received.
[2018-10-08] MEDS: SODIUM CHLORIDE 0.9% 1000ML 1,000 ML IV SCH ×3 (03:27→18:57)
[2018-10-08 06:03] LABS: BASOPHILS % 0.3 % (0.0-1.0); EOSINOPHILS # (AUTO) 0.3 (0.0-0.4); EOSINOPHILS % 7.2 % (0.0-6.0); HEMATOCRIT 23.8 % (34.2-44.1); HEMOGLOBIN 7.6 g/dL (12.0-16.0); LYMPHOCYTES # (AUTO) 0.7 (1.0-3.2); LYMPHOCYTES % 18.8 % (18.0-39.1); MEAN CORPUSCULAR HEMOGLOBIN 31.8 pg (28-32); MEAN CORPUSCULAR HGB CONC 31.9 g/dL (31-35); MEAN CORPUSCULAR VOLUME 99.6 fL (81-99); MONOCYTES # (AUTO) 0.4 (0.2-0.8); MONOCYTES % 10.4 % (4.4-11.3); NEUTROPHILS # (AUTO) 2.2 (2.1-6.9); PLATELET COUNT 70 x10e3/uL (140-360); RED BLOOD COUNT 2.39 x10e6/uL (3.6-5.1); RED CELL DISTRIBUTION WIDTH 20.5 % (11.7-14.4)
[2018-10-08 06:19] LABS: ANION GAP 10.2 mmol/L (8-16); BLOOD UREA NITROGEN 12 mg/dL (7-26); BUN/CREATININE RATIO 18 (6-25); CALCIUM 8.2 mg/dL (8.4-10.2); CARBON DIOXIDE 31 mmol/L (22-29); CHLORIDE 105 mmol/L (98-107); CREATININE, SERUM 0.66 mg/dL (0.57-1.11); EST GLOMERULAR FILTRATION RATE > 60 ML/MIN (60-); GLUCOSE 105 mg/dL (74-118); POTASSIUM 3.2 mmol/L (3.5-5.1); SODIUM 143 mmol/L (136-145)
--- NOTE | 2018-10-08 10:04 | NUR ---
Call placed to Dr. Josr Denton regarding medication contraindication. Awaiting call back.
[2018-10-08] MEDS: RIFAXIMIN 550 MG TABLET PO SCH ×2 (10:14→17:32)
--- NOTE | 2018-10-08 10:14 | NUR ---
melvin to give Xifaxan per Dr. Josr Denton
[2018-10-08 10:44] LABS: FERRITIN 27.08 ng/mL (4.63-204.00)
[2018-10-08] MEDS ORDERED: POTASSIUM CHLORIDE 10MEQ EA PO NR (10:45)
[2018-10-08] MEDS ORDERED: SODIUM CHLORIDE 0.9% 250ML 250 ML IV NR (10:45)
[2018-10-08] MEDS ORDERED: FUROSEMIDE INJ 10 MG/ML 2 ML VIAL IV PRN (10:45)
[2018-10-08 11:04] LABS: FOLATE 5.5 ng/mL (7.0-15.4)
--- NOTE | 2018-10-08 12:40 | NUR ---
Blood product administration stopped due to infiltrated IV. Blood returned to blood bank and new unit ordered after patent IV access obtained. See chart for details.
[2018-10-08] MEDS ORDERED: SODIUM CHLORIDE 0.9% 250ML 250 ML IV SCH (13:00)
--- NOTE | 2018-10-08 18:03 | NUR ---
Blood product administration complete at this time. No s/s of transfusion reactions observed or reported. 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
--- NOTE | 2018-10-08 20:30 | NUR ---
Patient returned from radiology.
--- NOTE | 2018-10-08 20:53 | Diagnostic Imaging Report ---
Tagged-RBC GI Bleed Study Clinical information: 68-year-old female with severe anemia. Discussion: The patient's own red blood cells were labeled with 25 mCi of technetium-99m pertechnetate using the in vitro method (UltraTag). Dynamic images of the abdomen were obtained through 60 minutes. Distribution of tracer activity appears physiologic throughout the abdomen except that the spleen has an unusually high uptake of the labeled red blood cells. No abnormal accumulation of tracer is seen within the gastrointestinal lumen. Impression: 1. No scan evidence of active gastrointestinal bleeding at this time. 2. Increased uptake of RBC's by the spleen suggests hemolytic anemia or other process of alteration of RBC's. Signed by: Dr. Ellen Long M.D. on 10/08/2018 8:49 PM
[2018-10-09] VITALS (7 sets, daily range): BP systolic 107–137; BP diastolic 57–83
[2018-10-09] MEDS: TRAZODONE HCL 50 MG TAB PO PRN ×2 (00:09→21:52)
--- NOTE | 2018-10-09 00:31 | NUR ---
Obtained consent for EGD - Enteroscopy at this time.
[2018-10-09] MEDS: SODIUM CHLORIDE 0.9% 1000ML 1,000 ML IV SCH ×3 (03:12→21:52)
[2018-10-09 05:30] LABS: BASOPHILS % 0.8 % (0.0-1.0); EOSINOPHILS # (AUTO) 0.2 (0.0-0.4); EOSINOPHILS % 6.3 % (0.0-6.0); HEMATOCRIT 25.4 % (34.2-44.1); HEMOGLOBIN 8.1 g/dL (12.0-16.0); LYMPHOCYTES # (AUTO) 0.6 (1.0-3.2); LYMPHOCYTES % 16.1 % (18.0-39.1); MEAN CORPUSCULAR HEMOGLOBIN 31.4 pg (28-32); MEAN CORPUSCULAR HGB CONC 31.9 g/dL (31-35); MEAN CORPUSCULAR VOLUME 98.4 fL (81-99); MONOCYTES # (AUTO) 0.4 (0.2-0.8); MONOCYTES % 10.1 % (4.4-11.3); NEUTROPHILS # (AUTO) 2.4 (2.1-6.9); NEUTROPHILS % 66.4 % (38.7-80.0); PLATELET COUNT 65 x10e3/uL (140-360); RED BLOOD COUNT 2.58 x10e6/uL (3.6-5.1); RED CELL DISTRIBUTION WIDTH 20.5 % (11.7-14.4)
[2018-10-09 05:59] LABS: ANION GAP 9.3 mmol/L (8-16); BLOOD UREA NITROGEN 9 mg/dL (7-26); BUN/CREATININE RATIO 16 (6-25); CALCIUM 8.3 mg/dL (8.4-10.2); CARBON DIOXIDE 30 mmol/L (22-29); CHLORIDE 103 mmol/L (98-107); CREATININE, SERUM 0.56 mg/dL (0.57-1.11); EST GLOMERULAR FILTRATION RATE > 60 ML/MIN (60-); GLUCOSE 99 mg/dL (74-118); POTASSIUM 3.3 mmol/L (3.5-5.1); SODIUM 139 mmol/L (136-145)
[2018-10-09 08:24] LABS: ANISOCYTOSIS SLIGHT; EOSINOPHILS % (MANUAL) 1 % (0-7); LYMPHOCYTES % (MANUAL) 14 % (19-48); MONOCYTES % (MANUAL) 5 % (3.4-9.0); NEUTROPHILS % (MANUAL) 80 % (40-74); PLATELET ESTIMATE MARKEDLY DECREASED; PLATELET MORPHOLOGY COMMENT NORMAL; POIKILOCYTOSIS SLIGHT; RBC MORPHOLOGY COMMENT ABNORMAL
[2018-10-09] MEDS: RIFAXIMIN 550 MG TABLET PO SCH (09:00)
--- NOTE | 2018-10-09 12:15 | NUR ---
EDUCATED ABOUT IMM, SIGNED, FILED IN CHART, WITH COPY LEFT WITH FAMILY AT BEDSIDE.
[2018-10-09] MEDS ORDERED: POTASSIUM CHLORIDE 20 MEQ TAB CR PO ONE (13:44)
[2018-10-09] MEDS ORDERED: DIPHENHYDRAMINE HCL 25 MG CAP PO PRN (14:45)
[2018-10-09] MEDS ORDERED: GABAPENTIN 100 MG CAP PO SCH (14:45)
[2018-10-09] MEDS ORDERED: TRAMADOL/APAP 37.5MG-325MG TAB PO PRN (14:45)
--- NOTE | 2018-10-09 16:09 | Progress Note ---
DATE: Internal Medicine Progress Note SUBJECTIVE: The patient is confused. PHYSICAL EXAMINATION: VITAL SIGNS: Blood pressure 125/66, temperature 99 degrees, heart rate 92 per minute, respiratory rate 16 per minute, oxygen saturation 95%. HEART: Showed regular rhythm. Normal S1 and S2 sound. LUNGS: Clear bilaterally. ABDOMEN: Soft. EXTREMITIES: Show no evidence of edema, but she has right above-knee amputation. LABORATORY DATA: On the BMP; sodium 139, potassium 3.3, chloride 103, CO2 of 30, BUN 9, creatinine 0.56, glucose 99. On the CBC; white blood count 3.67, hemoglobin 8.1, hematocrit 25.4, platelet count 65,000. PT 14.4, INR 1.07, PTT 34.6. AST 31, ALT 14, total bilirubin 1.7, alkaline phosphatase 158. IMPRESSION: 1. Hepatic encephalopathy. 2. Acute on chronic anemia. 3. Cirrhosis of the liver. 4. Diabetes mellitus type 2. 5. Hypokalemia. 6. Morbid obesity. The patient received blood transfusion. Hemoglobin is 8.1. We are going to discontinue the IV fluids. Continue with the lactulose 20 g twice a day. Ammonia level tomorrow, CBC tomorrow. Xifaxan 550 mg twice a day, trazodone 300 mg at bedtime. MD IMANI Olmstead/LUPIS /[id number]
[2018-10-09] MEDS: LACTULOSE SYRUP 20 GM/30 ML UDC PO SCH (17:04)
[2018-10-09] MEDS: RIFAXIMIN 550 MG TABLET PEG SCH (17:04)
[2018-10-09] MEDS: SUCRALFATE 1 GM TAB PO SCH ×2 (17:04→21:52)
[2018-10-09] MEDS: FUROSEMIDE 40 MG TAB PO SCH (17:04)
[2018-10-09] MEDS: PANTOPRAZOLE SOD 40 MG TABEC PO SCH (17:04)
[2018-10-09] MEDS: TOLTERODINE TARTRATE 4 MG CAPCR PO SCH (21:52)
[2018-10-09] MEDS: GABAPENTIN 300 MG CAP PO SCH (21:52)
[2018-10-10] VITALS (8 sets, daily range): BP systolic 113–148; BP diastolic 67–83
[2018-10-10 05:02] LABS: BASOPHILS % 0.3 % (0.0-1.0); EOSINOPHILS # (AUTO) 0.2 (0.0-0.4); EOSINOPHILS % 5.9 % (0.0-6.0); HEMATOCRIT 24.2 % (34.2-44.1); HEMOGLOBIN 7.9 g/dL (12.0-16.0); LYMPHOCYTES # (AUTO) 0.7 (1.0-3.2); LYMPHOCYTES % 22.1 % (18.0-39.1); MEAN CORPUSCULAR HEMOGLOBIN 32.1 pg (28-32); MEAN CORPUSCULAR HGB CONC 32.6 g/dL (31-35); MEAN CORPUSCULAR VOLUME 98.4 fL (81-99); MONOCYTES # (AUTO) 0.3 (0.2-0.8); MONOCYTES % 10.6 % (4.4-11.3); NEUTROPHILS # (AUTO) 1.9 (2.1-6.9); NEUTROPHILS % 61.1 % (38.7-80.0); PLATELET COUNT 57 x10e3/uL (140-360); RED BLOOD COUNT 2.46 x10e6/uL (3.6-5.1); RED CELL DISTRIBUTION WIDTH 19.6 % (11.7-14.4)
[2018-10-10 05:32] LABS: ANION GAP 10.7 mmol/L (8-16); BLOOD UREA NITROGEN 11 mg/dL (7-26); BUN/CREATININE RATIO 18 (6-25); CARBON DIOXIDE 28 mmol/L (22-29); CHLORIDE 105 mmol/L (98-107); CREATININE, SERUM 0.62 mg/dL (0.57-1.11); EST GLOMERULAR FILTRATION RATE > 60 ML/MIN (60-); GLUCOSE 95 mg/dL (74-118); POTASSIUM 3.7 mmol/L (3.5-5.1); SODIUM 140 mmol/L (136-145)
--- NOTE | 2018-10-10 06:41 | NUR ---
report given to day nurse. patient is resting comfortably in bed. bed is in lowest position and call garza is within reach.
[2018-10-10] MEDS: LIRAGLUTIDE 0.6 MG IJ SCH (09:00)
[2018-10-10] MEDS: PANTOPRAZOLE SOD 40 MG TABEC PO SCH ×2 (09:00→17:57)
[2018-10-10] MEDS: SUCRALFATE 1 GM TAB PO SCH ×3 (09:00→20:19)
[2018-10-10] MEDS: LACTULOSE SYRUP 20 GM/30 ML UDC PO SCH ×2 (09:00→17:57)
[2018-10-10] MEDS: GABAPENTIN 300 MG CAP PO SCH ×2 (09:00→20:19)
[2018-10-10] MEDS: RIFAXIMIN 550 MG TABLET PEG SCH ×2 (09:00→17:57)
[2018-10-10] MEDS: FUROSEMIDE 40 MG TAB PO SCH ×2 (09:00→17:57)
--- NOTE | 2018-10-10 10:33 | Progress Note ---
DATE: Internal Medicine Progress Note SUBJECTIVE: She is doing well, more oriented today. PHYSICAL EXAMINATION: HEART: Showed regular rhythm. Normal S1, S2 sound. LUNGS: Clear bilaterally. ABDOMEN: Soft. EXTREMITIES: Show right above-knee amputation. VITAL SIGNS: Blood pressure 121/71, temperature 98 degrees, heart rate 111 per minute, respiratory rate 18 per minute, and oxygen saturation 99%. LABORATORY DATA: On the BMP; sodium 140, potassium 3.7, chloride 105, CO2 28, BUN 11, creatinine 0.62, glucose 95. On the CBC; white blood count 3.03, hemoglobin 7.9, hematocrit 24.2, platelet count 57,000. PT 14.4, INR 1.07, PTT 34.6. AST 31, ALT of 14, total bilirubin 1.7, alkaline phosphatase 158. FINAL IMPRESSION: 1. Zyobs-xb-vbnpoke anemia. 2. Hepatic encephalopathy secondary to cirrhosis of the liver. 3. Cirrhosis of the liver. 4. Diabetes mellitus type 2. 5. Hypokalemia. 6. Morbid obesity. PLAN OF TREATMENT: 1. The patient going to get an EGD today to rule out GI bleed. 2. Continue with IV fluids. 3. Continue lactulose 20 g twice a day. 4. Trazodone 300 mg at bedtime. 5. Amlodipine 5 mg daily. 6. Protonix 40 mg twice a day. 7. Ultracet 1 tablet q.6 hours as needed. 8. Benadryl 25 mg at bedtime as needed. 9. Xifaxan 550 mg twice a day. 10. Furosemide 40 mg twice a day. 11. Carafate 1 g three times a day. 12. Gabapentin 600 mg twice a day. 13. Lactulose 20 g twice a day. 14. Detrol LA 4 mg at bedtime. MD IMANI Olmstead/LUPIS /[id number]
[2018-10-10] MEDS: SODIUM CHLORIDE 0.9% 1000ML 1,000 ML IV SCH ×2 (10:57→22:02)
--- NOTE | 2018-10-10 11:12 | NUR ---
patient resting in bed, Alert with no distress, on NPO
[2018-10-10] MEDS ORDERED: PROPOFOL IV EMULSION 10 MG/ML 50 ML VIAL ONE (14:24)
[2018-10-10] MEDS ORDERED: LIDOCAINE HCL 2% LOCAL INJ 5 ML SDV VIAL INJ ONE (14:24)
[2018-10-10] MEDS ORDERED: FENTANYL CITRATE/PF 100MCG/2 ML INJ ONE (14:42)
--- NOTE | 2018-10-10 14:46 | NUR ---
Patient off the unit for EGD, Stable
--- NOTE | 2018-10-10 16:40 | NUR ---
patient back from EGD, Stable, on IV fluids,
[2018-10-10] MEDS: AMLODIPINE BESYLATE 5 MG TAB PO SCH (17:57)
--- NOTE | 2018-10-10 19:00 | NUR ---
received report from day nurse. patient is resting comfortably in bed. bed is in lowest position and call garza is within reach. will continue to monitor patient.
[2018-10-10] MEDS: TOLTERODINE TARTRATE 4 MG CAPCR PO SCH (20:19)
[2018-10-10] MEDS: TRAZODONE HCL 50 MG TAB PO PRN (22:02)
[2018-10-11 00:44] VITALS: BP 127/68
[2018-10-11 05:23] LABS: BASOPHILS % 0.4 % (0.0-1.0); EOSINOPHILS # (AUTO) 0.3 (0.0-0.4); EOSINOPHILS % 5.6 % (0.0-6.0); HEMATOCRIT 26.4 % (34.2-44.1); HEMOGLOBIN 8.5 g/dL (12.0-16.0); LYMPHOCYTES # (AUTO) 0.7 (1.0-3.2); LYMPHOCYTES % 15.9 % (18.0-39.1); MEAN CORPUSCULAR HEMOGLOBIN 32.2 pg (28-32); MEAN CORPUSCULAR HGB CONC 32.2 g/dL (31-35); MONOCYTES # (AUTO) 0.5 (0.2-0.8); MONOCYTES % 11.2 % (4.4-11.3); NEUTROPHILS % 66.5 % (38.7-80.0); PLATELET COUNT 69 x10e3/uL (140-360); RED BLOOD COUNT 2.64 x10e6/uL (3.6-5.1); RED CELL DISTRIBUTION WIDTH 19.5 % (11.7-14.4)
--- NOTE | 2018-10-11 05:39 | Operative Report ---
DATE OF PROCEDURE: 10/10/2018 SURGEON: Gerson Denton MD PROCEDURE: Small bowel enteroscopy note. INDICATIONS FOR PROCEDURE: Anemia, guaiac-positive stools. MEDICATIONS: The patient was done under MAC, please see anesthesiologist's note. PROCEDURE IN DETAIL: With the patient in left lateral decubitus position, a flexible fiberoptic Olympus pediatric colonoscope was inserted into the esophagus under direct visualization and advanced to approximately 120 cm from the incisors. It could not be advanced any further as the small bowel was excessively spastic and irritable and did not distend adequately with air insufflation. The patient was frequently belching the insufflated air. The scope was then withdrawn slowly whatever was visualized, the mucosa overlying the small bowel examined, grossly appeared to be within normal limits. The scope was then withdrawn back into the stomach and several erosions were noted in the antrum without active bleeding. There was also some scattered vascular ectasia noted in the antrum and body. The scope was then retroflexed and mucosa overlying the fundus grossly appeared to be within normal limits. There were some also vascular ectasia noted in the cardia. The scope was subsequently withdrawn and the patient tolerated the procedure well. IMPRESSION: 1. Enteroscopy to approximately 120 cm from the incisors, scope could not be advanced any further as the small bowel was excessively spastic and irritable and could not be adequately distended with air insufflation. The patient was belching the insufflated air during the procedure. 2. No esophageal varices were noted. 3. Vascular ectasia, cardia without active bleeding. 4. Erosive gastritis. 5. Scattered vascular ectasia in antrum and body without active bleeding. PLAN: We will augment current antibiotic therapy. The patient will need electively an EGD with fulguration of the vascular ectasia with APC probe. Gerson Denton MD [facility] [place]/MOD /[id number] cc: John Granda MD
[2018-10-11 05:52] VITALS: BP 117/69
--- NOTE | 2018-10-11 07:00 | NUR ---
RCD PT AT BED PT IS ALERT AND ORIENTED PT RESTING ON BED NO SIGNS OF ANY DISTRESS NOTED IV PATENT BED LOW AND LOCKED CALL LIGHT IN REACH
[2018-10-11 07:16] LABS: ANISOCYTOSIS SLIGHT; PLATELET ESTIMATE MARKEDLY DECREASED; PLATELET MORPHOLOGY COMMENT NORMAL; RBC MORPHOLOGY COMMENT NORMAL
[2018-10-11 07:17] LABS: OVALOCYTES FEW
[2018-10-11 08:00] VITALS: BP 122/78
[2018-10-11 08:15] VITALS: BP 122/78
[2018-10-11] MEDS: FUROSEMIDE 40 MG TAB PO SCH ×2 (09:00→16:20)
[2018-10-11] MEDS: SUCRALFATE 1 GM TAB PO SCH ×2 (09:00→15:00)
[2018-10-11] MEDS: LACTULOSE SYRUP 20 GM/30 ML UDC PO SCH ×2 (09:00→16:20)
[2018-10-11] MEDS: LIRAGLUTIDE 0.6 MG IJ SCH (09:00)
[2018-10-11] MEDS: GABAPENTIN 300 MG CAP PO SCH (09:00)
[2018-10-11] MEDS: PANTOPRAZOLE SOD 40 MG TABEC PO SCH ×2 (09:00→16:20)
[2018-10-11] MEDS: AMLODIPINE BESYLATE 5 MG TAB PO SCH (09:00)
[2018-10-11] MEDS: RIFAXIMIN 550 MG TABLET PEG SCH ×2 (09:00→16:20)
[2018-10-11] MEDS: SODIUM CHLORIDE 0.9% 1000ML 1,000 ML IV SCH ×2 (09:08→10:57)
[2018-10-11] MEDS ORDERED: SPIRONOLACTONE25 MG PO (09:13)
[2018-10-11] MEDS ORDERED: LASIX40 MG PO (09:14)
[2018-10-11] MEDS ORDERED: NORVASC5 MG PO (09:14)
--- NOTE | 2018-10-11 09:16 | NUR ---
PAGED DR Josr CARY TO GET DISCHARGE APPROVAL
--- NOTE | 2018-10-11 10:06 | NUR ---
DR Josr MESSINA RETURNED THE CALL HE IS OK TO DISCHARGE THE PT
--- NOTE | 2018-10-11 11:06 | NUR ---
EDUCATED ABOUT IMM, SIGNED, FILED IN CHART, WITH COPY LEFT WITH FAMILY AT BEDSIDE.
[2018-10-11 11:52] VITALS: BP 122/87
--- NOTE | 2018-10-11 12:15 | Progress Note ---
DATE: Internal Medicine Progress Note SUBJECTIVE: She is doing well. No significant complaint today. She had an endoscopy done yesterday, which showed no esophageal varices, vascular ectasia in the cardia without active bleeding, erosive gastritis, scattered vascular ectasia in the antrum and the body without active bleeding. Dr. Denton tried an enteroscopy to approximately 120 cm from the incisors, the scope could not be advanced any further as the small bowel was excessively spastic and irritable and could not be adequately distended with air insufflation. PHYSICAL EXAMINATION: HEART: Showed regular rhythm. Normal S1, S2 sound. LUNGS: Clear bilaterally. ABDOMEN: Soft. LABORATORY DATA: On the BMP, sodium 140, potassium 3.7, chloride 105, CO2 of 28, BUN 11, creatinine 0.62, and glucose 95. CBC, white blood count 4.46, hemoglobin 8.5, hematocrit 26.4, and platelet count 69,000. FINAL IMPRESSION: 1. Acute anemia. 2. Pancytopenia. 3. Cirrhosis of the liver. 4. Hypertension. 5. Diabetes mellitus type 2 with diabetic neuropathy. PLAN OF TREATMENT: Continue: 1. Lactulose 20 g twice a day. 2. Trazodone 300 mg at bedtime. 3. Amlodipine 5 mg daily. 4. Protonix 40 mg twice a day. 5. Ultracet 1 tablet q.6 hours as needed. 6. Xifaxan 550 mg twice a day. 7. Furosemide 40 mg twice a day. 8. Carafate 1 g before meals. 9. Gabapentin 600 mg twice a day. 10. Detrol LA 4 mg daily. Tentative discharge for today if okay with Dr. Denton. MD IMANI Olmstead/LUPIS /[id number]
--- NOTE | 2018-10-11 19:10 | NUR ---
PT RESTING ON BED BED SIDE REPORT GIVEN TO ONCOMING NURSE
--- NOTE | 2018-10-12 02:39 | Discharge Summary ---
HOSPITAL COURSE: The patient is a 68-year-old female with past medical history positive for end-stage cirrhosis of the liver, history of diabetes, right above-knee amputation, came here with confusion and anemia. She received blood transfusion. She was restarted on lactulose and Xifaxan. The patient is much more alert now. Hemoglobin and hematocrit are stable. EGD showed no evidence of any active bleeding. The patient is going home today if okay with the consultants. PHYSICAL EXAMINATION: HEART: Showed regular rhythm. Normal S1 and S2 sound. LUNGS: Clear bilaterally. ABDOMEN: Soft. FINAL IMPRESSION: 1. Hlhzn-dx-ugmchgu anemia. 2. Pancytopenia secondary to cirrhosis of the liver. 3. Cirrhosis of the liver. 4. Diabetes mellitus type 2 with diabetic neuropathy. 5. Hypertension. PLAN OF TREATMENT: Continue current medication regimen that I already dictated in my progress note. Follow up with me in a couple of weeks. MD IMANI Olmstead/LUPIS /[id number]
== END 2018-10-11 19:12 | disposition home or self-care (01) | DRG 811 ==
LOC: ER 18:06 → ERHOLD 19:15 → MED/SURG2 21:27
PROVIDERS: ADMIT Internal Medicine; ATTEND Internal Medicine
PROC: 30250N1 (ICD-10-PCS; principal; 2018-10-08)
PROC: 0DJ08ZZ Inspection of Upper Intestinal Tract, Via Natural or Artificial Opening Endoscopic (ICD-10-PCS; 2018-10-10)
DX: D62 Acute posthemorrhagic anemia (principal); K31.811 Angiodysplasia of stomach and duodenum with bleeding; K29.71 Gastritis, unspecified, with bleeding; D61.818 Other pancytopenia; K31.819 Angiodysplasia of stomach and duodenum without bleeding; K72.90 Hepatic failure, unspecified without coma; K74.60 Unspecified cirrhosis of liver; E87.6 Hypokalemia; E11.40 Type 2 diabetes mellitus with diabetic neuropathy, unspecified; Z79.4 Long term (current) use of insulin; I10 Essential (primary) hypertension; I25.10 Atherosclerotic heart disease of native coronary artery without angina pectoris; E66.01 Morbid (severe) obesity due to excess calories; Z68.37 Body mass index [BMI] 37.0-37.9, adult
CPT/HCPCS: 36415; 43239; 70450; 71045; 78278; 80048; 80053; 81001; 82140; 82270; 82550; 82553; 82607; 82728; 82746; 82948; 83540; 83735; 84466; 84484; 85025; 85045; 85610; 85730; 86850; 86900; 86920; 93005; 96361; 97139; 99285; A9512; J1940; J2001; J3010; J7030; J7050; P9016

== ENCOUNTER 2018-10-20 18:30 | Observation (INO) | payer MEDICARE, BC ==
[~2018-10-20] VITALS: Ht 152.4 cm; Wt 104.9 kg
[~2018-10-20 18:30] MED LIST changes: +AMLODIPINE BESYL5 MG PO; +BENADRYL25 M1; +DETROL LA4 MG PO; +LACTULOSE20 GM/30 M PO; +NORVASC5 MG PO; +PROPRANOLOL HCL20 MG; +SPIRONOLACTONE25 MG PO; +SUCRALFATE1 GM PO; +TRAZODONE HCL300 MG; +XIFAXAN550 MG
[2018-10-20 19:36] LABS: BASOPHILS % 1.1 % (0.0-1.0); EOSINOPHILS # (AUTO) 0.3 (0.0-0.4); EOSINOPHILS % 8.9 % (0.0-6.0); LYMPHOCYTES # (AUTO) 0.7 (1.0-3.2); LYMPHOCYTES % 17.4 % (18.0-39.1); MEAN CORPUSCULAR HEMOGLOBIN 31.8 pg (28-32); MEAN CORPUSCULAR HGB CONC 30.8 g/dL (31-35); MEAN CORPUSCULAR VOLUME 103.2 fL (81-99); MONOCYTES # (AUTO) 0.4 (0.2-0.8); MONOCYTES % 11.3 % (4.4-11.3); NEUTROPHILS # (AUTO) 2.3 (2.1-6.9); PLATELET COUNT 94 x10e3/uL (140-360); RED CELL DISTRIBUTION WIDTH 18.6 % (11.7-14.4)
[2018-10-20 19:41] LABS: HEMATOCRIT 22.7 % (34.2-44.1)
[2018-10-20 19:47] LABS: INR 1.01; PROTHROMBIN TIME 13.8 seconds (11.9-14.5)
[2018-10-20 19:48] LABS: PARTIAL THROMBOPLASTIN TIME 24.6 seconds (23.8-35.5)
[2018-10-20 20:07] LABS: ALANINE AMINOTRANSFERASE 14 IU/L (0-55); ALBUMIN 2.4 g/dL (3.5-5.0); ALBUMIN/GLOBULIN RATIO 0.8 (0.8-2.0); ALKALINE PHOSPHATASE 133 IU/L (40-150); ANION GAP 11.2 mmol/L (8-16); BLOOD UREA NITROGEN 13 mg/dL (7-26); BUN/CREATININE RATIO 15 (6-25); CALCIUM 8.1 mg/dL (8.4-10.2); CARBON DIOXIDE 34 mmol/L (22-29); CHLORIDE 95 mmol/L (98-107); CREATINE KINASE 124 IU/L (29-168); CREATININE, SERUM 0.85 mg/dL (0.57-1.11); EST GLOMERULAR FILTRATION RATE > 60 ML/MIN (60-); GLUCOSE 104 mg/dL (74-118); POTASSIUM 3.2 mmol/L (3.5-5.1); SODIUM 137 mmol/L (136-145)
--- NOTE | 2018-10-20 20:52 | NUR ---
consent obtained for transfusion of blood
[2018-10-20] MEDS ORDERED: ONDANSETRON HCL INJ 2MG/ML 2ML 2 MG/ML VIAL IV PRN (21:00)
[2018-10-20] MEDS ORDERED: SODIUM CHLORIDE FLUSH 10 ML SYR INJ PRN (21:00)
[2018-10-20] MEDS ORDERED: SODIUM CHLORIDE 0.9% 250ML 250 ML IV ONE (21:00)
[2018-10-20] MEDS ORDERED: SPIRONOLACTONE25 MG PO (21:06)
[2018-10-20] MEDS ORDERED: ULTRAM 50MG50 MG PO (21:06)
[2018-10-20] MEDS ORDERED: LACTULOSE10 GM/151 PO (21:06)
[2018-10-20] MEDS ORDERED: POTASSIUM CHLO10 MEQ PO (21:06)
[2018-10-20] MEDS ORDERED: AMLODIPINE BESYL5 MG PO (21:07)
[2018-10-20] MEDS ORDERED: LOPRESSOR25 MG PO (21:09)
[2018-10-20] MEDS ORDERED: GLIMEPIRIDE2 MG PO (21:09)
[2018-10-20] MEDS ORDERED: TRAZODONE HCL50 MG PO (21:09)
[2018-10-20] MEDS ORDERED: PROPRANOLOL HCL60 MG PO (21:09)
[2018-10-20] MEDS ORDERED: FUROSEMIDE40 MG PO (21:09)
[2018-10-20] MEDS ORDERED: GABAPENTIN600 MG PO (21:09)
[2018-10-20] MEDS ORDERED: XIFAXAN550 MG PO (21:10)
[2018-10-20] MEDS ORDERED: DEXTROSE 50% SYRINGE 50 ML IV PRN (21:15)
[2018-10-20 22:15] VITALS: BP 106/59
[2018-10-20 22:18] VITALS: BP 106/59
[2018-10-20 22:27] VITALS: BP 106/59
[2018-10-20] MEDS ORDERED: SODIUM CHLORIDE 0.9% 500ML 500 ML ONE (22:57)
[2018-10-20 23:20] VITALS: BP 111/63
[2018-10-20 23:35] VITALS: BP 103/58
[2018-10-20 23:50] VITALS: BP 116/57
[2018-10-21] VITALS (14 sets, daily range): BP systolic 84–118; BP diastolic 50–72
[2018-10-21] MEDS: FUROSEMIDE INJ 10 MG/ML 2 ML VIAL IV PRN ×2 (01:40→05:38)
[2018-10-21 06:08] LABS: BASOPHILS % 0.6 % (0.0-1.0); EOSINOPHILS # (AUTO) 0.3 (0.0-0.4); EOSINOPHILS % 7.9 % (0.0-6.0); HEMATOCRIT 27.3 % (34.2-44.1); HEMOGLOBIN 8.7 g/dL (12.0-16.0); LYMPHOCYTES # (AUTO) 0.6 (1.0-3.2); LYMPHOCYTES % 17.2 % (18.0-39.1); MEAN CORPUSCULAR HEMOGLOBIN 31.3 pg (28-32); MEAN CORPUSCULAR HGB CONC 31.9 g/dL (31-35); MEAN CORPUSCULAR VOLUME 98.2 fL (81-99); MONOCYTES # (AUTO) 0.5 (0.2-0.8); MONOCYTES % 13.8 % (4.4-11.3); NEUTROPHILS # (AUTO) 2.1 (2.1-6.9); NEUTROPHILS % 60.2 % (38.7-80.0); PLATELET COUNT 81 x10e3/uL (140-360); RED BLOOD COUNT 2.78 x10e6/uL (3.6-5.1); RED CELL DISTRIBUTION WIDTH 19.3 % (11.7-14.4)
[2018-10-21 06:26] LABS: ANION GAP 12.2 mmol/L (8-16); BLOOD UREA NITROGEN 14 mg/dL (7-26); BUN/CREATININE RATIO 16 (6-25); CALCIUM 8.1 mg/dL (8.4-10.2); CARBON DIOXIDE 35 mmol/L (22-29); CHLORIDE 97 mmol/L (98-107); CREATININE, SERUM 0.88 mg/dL (0.57-1.11); EST GLOMERULAR FILTRATION RATE > 60 ML/MIN (60-); GLUCOSE 147 mg/dL (74-118); POTASSIUM 3.2 mmol/L (3.5-5.1); SODIUM 141 mmol/L (136-145)
--- NOTE | 2018-10-21 07:20 | NUR ---
PATIENT IS ALERT AND IS IN STABLE CONDITION WITH NO S/S OF RESPIRATORY DISTRESS. NO PAIN VOICED. TELEMETRY, PUREWICK AND DIAPER APPLIED. PATIENT HAS A RIGHT AKA. LEFT LOWER EXTREMITY NONPITTING. DAUGHTER PRESENT IN ROOM. CALL LIGHT IS WITHIN REACH, PATIENT INSTRUCTED TO CALL FOR ASSISTANCE NEEDED.
[2018-10-21] MEDS: INSULIN REGULAR, HUMAN 100 UNIT/1 ML 3ML VIAL SQ SCH ×2 (07:30→11:30)
[2018-10-21] MEDS ORDERED: POTASSIUM CHLORIDE 20 MEQ TAB CR PO NR (12:00)
--- NOTE | 2018-10-21 17:35 | NUR ---
PATIENT DISCHARGE HOME- PATIENT OFF THE UNIT AT 1509 PER HER OWN PERSONAL WHEELCHAIR ACCOMPANIED BY STAFF MEMBER TO THE FRONT LOBBY. PATIENT IN STABLE CONDITION WITH NO S/S OF RESPIRATORY DISTRESS. IV REMOVED WITH TIP INTACT. DISCHARGE TEACHING AND INSTRUCTIONS GIVEN TO THE PATIENT. ALL PERSONAL ITEMS TAKEN WITH THE PATIENT AND HER SON.
[2018-10-21] MEDS ORDERED: FAMOTIDINE 20 MG/2 ML VIAL IV SCH (21:00)
== END 2018-10-21 15:09 | disposition home or self-care (01) ==
LOC: ER 18:30 → ERHOLD 20:50 → MED/SURG3 22:06
PROVIDERS: ADMIT Internal Medicine; ATTEND Internal Medicine
DX: D50.0 Iron deficiency anemia secondary to blood loss (chronic) (principal); Z82.49 Family history of ischemic heart disease and other diseases of the circulatory system; Z83.3 Family history of diabetes mellitus; E11.51 Type 2 diabetes mellitus with diabetic peripheral angiopathy without gangrene; I48.91 Unspecified atrial fibrillation; I25.10 Atherosclerotic heart disease of native coronary artery without angina pectoris; Z79.84 Long term (current) use of oral hypoglycemic drugs
CPT/HCPCS: 36415 ×2; 36430; 80048; 80053; 82550; 82553; 82948; 84484; 85025 ×2; 85610; 85730; 86850; 86900; 86920; 99284; G0378 ×2; J1817; J1940; J7040; P9016 ×2

== ENCOUNTER → 2018-12-01 | Outpatient (CLI) | payer MEDICARE, BC ==
[~2018-12-01] MED LIST changes: +FUROSEMIDE40 MG PO; +GABAPENTIN600 MG PO; +GLIMEPIRIDE2 MG PO; +LACTULOSE10 GM/151 PO; +LOPRESSOR25 MG PO; +POTASSIUM CHLO10 MEQ PO; +PROPRANOLOL HCL60 MG PO; +XIFAXAN550 MG PO
--- NOTE | 2018-12-01 11:40 | Diagnostic Imaging Report ---
EXAM: Focused Ultrasound Evaluation of the abdomen INDICATION: ^[id number] ^1109 ^ASCITES COMPARISON: None TECHNIQUE: Monahan scale images of the 4 quadrants of the abdomen were obtained. FINDINGS/IMPRESSION: Trace ascites in the right and left upper quadrants, insufficient for safe performance of paracentesis. Signed by: Reed Haddad MD on 12/01/2018 11:37 AM
== END ==
LOC: US 10:41
PROVIDERS: ATTEND Internal Medicine
DX: R18.8 Other ascites (principal)
CPT/HCPCS: 76705

== ENCOUNTER → 2019-01-12 | Outpatient (CLI) | payer MEDICARE, BC ==
--- NOTE | 2019-01-12 17:39 | Myoview Stress Test ---
DATE OF STUDY: 01/12/2019 07:59:00 Stress Test - Treadmill ONLY REPORT TITLE: Cardiology Nuclear Stress Test BODY AFTER REPORT TITLE: STRESS SUMMARY: The patient underwent pharmacologic stress test under the usual Lexiscan protocol. Baseline heart rate was 78 beats per minute and bety to a maximum of 90 beats per minute. Blood pressure was 101/63 at rest and bety to 105/65 during stress. The patient elicited no cardiac symptoms throughout the stress protocol. ELECTROCARDIOGRAPHIC STRESS SUMMARY: The patient's baseline 12-lead electrocardiogram showed normal sinus rhythm with nonspecific ST-T wave abnormalities. There are no ST changes or arrhythmias noted throughout the stress protocol. MYOCARDIAL PERFUSION IMAGING: The patient received technetium-99m tetrofosmin with 11 millicuries at rest and 33 millicuries at stress. Myocardial perfusion images revealed a small mild inferior defect that improved with stress compared with rest. Gated images revealed a normal left ventricular ejection fraction estimated at 66%. CONCLUSIONS: 1. Normal clinical, electrocardiographic, and hemodynamic Lexiscan stress test. 2. Normal myocardial perfusion imaging showing a small mild inferior attenuation artifact. 3. Left ventricular ejection fraction of 66%. DO DULCE MARIA Orourke/GUILLERMOL /[id number]
== END ==
LOC: NM 07:49
PROVIDERS: ATTEND Internal Medicine Interventional Cardiology
DX: I20.8 Other forms of angina pectoris (principal)
CPT/HCPCS: 78452; 93017; A9502

== ENCOUNTER 2019-01-22 15:53 | Observation (INO) | payer MEDICARE, BC ==
[~2019-01-22] VITALS: Ht 162.6 cm; Wt 91.2 kg
[2019-01-22 17:05] LABS: BASOPHILS % 0.8 % (0.0-1.0); EOSINOPHILS # (AUTO) 0.3 (0.0-0.4); EOSINOPHILS % 8.9 % (0.0-6.0); LYMPHOCYTES # (AUTO) 0.6 (1.0-3.2); LYMPHOCYTES % 15.5 % (18.0-39.1); MEAN CORPUSCULAR HEMOGLOBIN 26.6 pg (28-32); MEAN CORPUSCULAR VOLUME 91.6 fL (81-99); MONOCYTES # (AUTO) 0.4 (0.2-0.8); NEUTROPHILS # (AUTO) 2.4 (2.1-6.9); NEUTROPHILS % 63.3 % (38.7-80.0); RED BLOOD COUNT 2.37 x10e6/uL (3.6-5.1); RED CELL DISTRIBUTION WIDTH 16.5 % (11.7-14.4)
[2019-01-22 17:06] LABS: PLATELET COUNT 79 x10e3/uL (140-360)
[2019-01-22 17:07] LABS: HEMATOCRIT 21.7 % (34.2-44.1); HEMOGLOBIN 6.3 g/dL (12.0-16.0)
--- NOTE | 2019-01-22 17:09 | NUR ---
md and primary nurse notified of h/h
[2019-01-22 17:11] LABS: INR 1.03; PARTIAL THROMBOPLASTIN TIME 32.9 seconds (23.8-35.5)
[2019-01-22 17:20] LABS: ALANINE AMINOTRANSFERASE 14 IU/L (0-55); ALBUMIN 2.6 g/dL (3.5-5.0); ALBUMIN/GLOBULIN RATIO 0.7 (0.8-2.0); ALKALINE PHOSPHATASE 137 IU/L (40-150); AMYLASE 63 U/L (25-125); ANION GAP 9.6 mmol/L (8-16); BLOOD UREA NITROGEN 10 mg/dL (7-26); BUN/CREATININE RATIO 12 (6-25); CALCIUM 8.1 mg/dL (8.4-10.2); CARBON DIOXIDE 34 mmol/L (22-29); CHLORIDE 96 mmol/L (98-107); CREATINE KINASE 44 IU/L (29-168); CREATININE, SERUM 0.83 mg/dL (0.57-1.11); EST GLOMERULAR FILTRATION RATE > 60 ML/MIN (60-); GLUCOSE 83 mg/dL (74-118); LIPASE 27 U/L (8-78); POTASSIUM 3.6 mmol/L (3.5-5.1); SODIUM 136 mmol/L (136-145)
--- NOTE | 2019-01-22 17:33 | Diagnostic Imaging Report ---
EXAMINATION: CHEST SINGLE (PORTABLE) INDICATION: Anemia COMPARISON: Chest radiograph 10/06/2018 FINDINGS: LINES/TUBES:EKG leads overlie the chest. LUNGS:The lung volumes are low. No focal consolidation. Central pulmonary vascular congestion without davion pulmonary edema. PLEURA:No pleural effusion or pneumothorax. MEDIASTINUM:Cardiomediastinal silhouette is stably enlarged. BONES/SOFT TISSUES:No acute osseous injury. ABDOMEN:No free air under the diaphragm. IMPRESSION: Low lung volumes. No focal pneumonia or davion pulmonary edema. Unchanged cardiomegaly and central pulmonary vascular congestion. Signed by: Reed Haddad MD on 01/22/2019 5:29 PM
[2019-01-22] MEDS ORDERED: SODIUM CHLORIDE 0.9% 250ML 250 ML IV ONE (18:30)
[2019-01-22 19:26] VITALS: BP 116/61
--- NOTE | 2019-01-22 21:18 | NUR ---
Patient arrived from ED via stretcher, assisted to transfer to bed with x2 nurse assist. She is awake, alert denies any CP, SOB or dizziness at this time. Tele#[phone] verified with telegraph office manager. Diaper changed and patient repositioned for comfort. POC discussed. Patient instructed to call for assistance as needed and verbalized understanding. Bed in lowest position, locked and call garza within reach.
[2019-01-22 21:28] VITALS: BP 116/61
[2019-01-22 21:34] VITALS: BP 116/61
--- NOTE | 2019-01-22 22:30 | NUR ---
x2 nurse at bedside for blood verification. first unit of blood initiated at time per orders. this nurse in rm first 15 min of transfusion. no ss of distress noted. no reaction noted. pt tolerating well. call garza within reach. primary nurse notified.
[2019-01-22] MEDS ORDERED: SODIUM CHLORIDE 0.9% 250ML 250 ML ONE (22:35)
[2019-01-22] MEDS: TRAZODONE HCL 50 MG TAB PO SCH ×2 (23:28→23:53)
[2019-01-23] VITALS: BP 89/56
[2019-01-23] MEDS ORDERED: TRAMADOL HCL 50 MG TAB PO PRN
[2019-01-23] MEDS ORDERED: TRAMADOL HCL 50 MG TAB PO SCH
--- NOTE | 2019-01-23 | NUR ---
Patient tolerating unit PRBC's without any s/s of reaction. Will continue to monitor.
[2019-01-23] MEDS ORDERED: SODIUM CHLORIDE 0.9% 250ML 250 ML ONE (02:11)
[2019-01-23 04:00] VITALS: BP 99/64
--- NOTE | 2019-01-23 06:10 | NUR ---
Second unit complete of PRBC's and patient tolerated well without any signs or symptoms of reaction. Call garza within reach.
[2019-01-23 07:32] VITALS: BP 107/62
[2019-01-23] MEDS ORDERED: GLIMEPIRIDE 2 MG TAB PO SCH (08:00)
[2019-01-23 08:29] LABS: BASOPHILS % 0.6 % (0.0-1.0); EOSINOPHILS # (AUTO) 0.2 (0.0-0.4); EOSINOPHILS % 7.1 % (0.0-6.0); HEMATOCRIT 24.5 % (34.2-44.1); HEMOGLOBIN 7.5 g/dL (12.0-16.0); LYMPHOCYTES # (AUTO) 0.5 (1.0-3.2); LYMPHOCYTES % 15.4 % (18.0-39.1); MEAN CORPUSCULAR HEMOGLOBIN 27.6 pg (28-32); MEAN CORPUSCULAR HGB CONC 30.6 g/dL (31-35); MEAN CORPUSCULAR VOLUME 90.1 fL (81-99); MONOCYTES # (AUTO) 0.3 (0.2-0.8); MONOCYTES % 9.6 % (4.4-11.3); NEUTROPHILS # (AUTO) 2.2 (2.1-6.9); NEUTROPHILS % 66.7 % (38.7-80.0); PLATELET COUNT 66 x10e3/uL (140-360); RED BLOOD COUNT 2.72 x10e6/uL (3.6-5.1); RED CELL DISTRIBUTION WIDTH 16.7 % (11.7-14.4)
[2019-01-23] MEDS ORDERED: AMLODIPINE BESYLATE 5 MG TAB PO SCH (09:00)
[2019-01-23] MEDS ORDERED: RIFAXIMIN 550 MG TABLET PO SCH (09:00)
[2019-01-23] MEDS ORDERED: GABAPENTIN 300 MG CAP PO SCH (09:00)
[2019-01-23] MEDS ORDERED: PANTOPRAZOLE 40 MG 10ML VIAL IV SCH (09:00)
[2019-01-23] MEDS ORDERED: LACTULOSE SYRUP 20 GM/30 ML UDC PO SCH (09:00)
[2019-01-23] MEDS ORDERED: SPIRONOLACTONE 25 MG TAB PO SCH (09:00)
[2019-01-23] MEDS ORDERED: POTASSIUM CHLORIDE 10MEQ EA PO SCH (09:00)
[2019-01-23] MEDS ORDERED: FUROSEMIDE 40 MG TAB PO SCH (09:00)
[2019-01-23] MEDS ORDERED: PROPRANOLOL HCL 60 MG ER CAP PO SCH (09:00)
[2019-01-23] MEDS ORDERED: METOPROLOL TARTRATE 25 MG TAB PO SCH (09:00)
--- NOTE | 2019-01-23 09:10 | NUR ---
DAY 1 OBS 24 HRS UP AT 6PM ANEMIA, LIVER DX AND THROMBOCYTOPENIA HGB 6.3; TRANSFUSED 2 UNITS UP TO 7.5 STOOL OB PENDING PLATELETS 79 AND 66 BARRIERS TO DC: STOOL OB PER DR SAHNI POSSIBLE DC HOME TODAY AFTER STOOL OB BACK
[2019-01-23 11:44] VITALS: BP 102/62
--- NOTE | 2019-01-23 16:55 | Discharge Summary ---
HOSPITAL COURSE: Ms. Harden is a 68-year-old female with history of diabetes, liver cirrhosis, right above knee amputation of her leg, pancytopenia due to liver cirrhosis, recurrent episodes of admission due to anemia. She was found to have very low hemoglobin at her PCP's office, so she was called and sent to the emergency room. PHYSICAL EXAMINATION: GENERAL: She is awake and alert. She is feeling better. She wants to go home. She received already 2 units of packed red blood cells. VITAL SIGNS: Temperature is 97.7, blood pressure 107/62. HEART: Regular rate. LUNGS: Clear to auscultation. ABDOMEN: Soft. LABORATORY DATA: On the blood work, white count 3.24, hemoglobin 7.5, hematocrit 24.5. Potassium 3.6, creatinine 0.83, glucose 136. Stool guaiac is pending. Chest x-ray shows low lung volume and unchanged cardiomegaly with central pulmonary vascular congestion. DISCHARGE DIAGNOSES: 1. Ddhed-hb-juztbpp anemia. 2. Pancytopenia secondary to liver cirrhosis. 3. Liver cirrhosis. 4. Diabetes type 2 with right above-knee amputation. 5. Right above-knee amputation. 6. Hypertension. PLAN: At present time is to the discharge the patient home. She already received 2 units of packed red blood cells. She needs follow up with Dr. Granda next week, so we can monitor her CBC then. The patient states she was feeling fine. She just came because she was called telling her that her hemoglobin was very low. Followup with a Dr. Gerson Denton, apparently her GI doctor. All this was discussed in extensive with the patient. All questions were answered to satisfaction. Please see home medication reconciliation list. MD BASSEM Guillen/GUILLERMOL /[id number]
[2019-01-23] MEDS ORDERED: TRAZODONE HCL 50 MG TAB PO SCH (21:00)
== END 2019-01-23 14:50 | disposition home or self-care (01) ==
LOC: ER 15:53 → ERHOLD 18:21 → IMCU 21:20
PROVIDERS: ADMIT Internal Medicine; ATTEND Internal Medicine
DX: D64.9 Anemia, unspecified (principal); R55 Syncope and collapse; D69.6 Thrombocytopenia, unspecified; K74.60 Unspecified cirrhosis of liver; D61.818 Other pancytopenia; E11.9 Type 2 diabetes mellitus without complications; Z89.611 Acquired absence of right leg above knee; Z88.5 Allergy status to narcotic agent; Z79.84 Long term (current) use of oral hypoglycemic drugs
CPT/HCPCS: 36415 ×2; 36430; 71045; 80053; 82150; 82270; 82550; 82553; 82948 ×2; 83690; 84484; 85025 ×2; 85610; 85730; 86850; 86900; 86920; 93005; 99284; C9113; G0378 ×2; J7050 ×2; P9016 ×2

== ENCOUNTER 2019-02-05 19:15 | Emergency (ER) | payer MEDICARE, BC ==
[~2019-02-05] VITALS: Ht 162.6 cm; Wt 91.2 kg
[2019-02-05 20:04] LABS: BASOPHILS % 0.7 % (0.0-1.0); EOSINOPHILS # (AUTO) 0.4 (0.0-0.4); EOSINOPHILS % 9.3 % (0.0-6.0); HEMATOCRIT 27.1 % (34.2-44.1); HEMOGLOBIN 7.9 g/dL (12.0-16.0); LYMPHOCYTES # (AUTO) 0.7 (1.0-3.2); LYMPHOCYTES % 16.4 % (18.0-39.1); MEAN CORPUSCULAR HEMOGLOBIN 27.1 pg (28-32); MEAN CORPUSCULAR HGB CONC 29.2 g/dL (31-35); MEAN CORPUSCULAR VOLUME 93.1 fL (81-99); MONOCYTES # (AUTO) 0.3 (0.2-0.8); MONOCYTES % 7.9 % (4.4-11.3); NEUTROPHILS # (AUTO) 2.8 (2.1-6.9); NEUTROPHILS % 65.5 % (38.7-80.0); RED BLOOD COUNT 2.91 x10e6/uL (3.6-5.1); RED CELL DISTRIBUTION WIDTH 17.7 % (11.7-14.4)
[2019-02-05 20:05] LABS: PLATELET COUNT 94 x10e3/uL (140-360)
[2019-02-05 20:14] LABS: ANION GAP 11.7 mmol/L (8-16); BLOOD UREA NITROGEN 15 mg/dL (7-26); BUN/CREATININE RATIO 18 (6-25); CALCIUM 8.5 mg/dL (8.4-10.2); CARBON DIOXIDE 27 mmol/L (22-29); CHLORIDE 97 mmol/L (98-107); CREATININE, SERUM 0.84 mg/dL (0.57-1.11); EST GLOMERULAR FILTRATION RATE > 60 ML/MIN (60-); GLUCOSE 267 mg/dL (74-118); POTASSIUM 3.7 mmol/L (3.5-5.1); SODIUM 132 mmol/L (136-145)
[2019-02-05 22:48] VITALS: BP 110/82
[2019-02-07] MEDS ORDERED: SUCRALFATE1 GM PO (16:47)
[2019-02-07] MEDS ORDERED: PANTOPRAZOLE SO40 MG PO (16:47)
[2019-02-07] MEDS ORDERED: VITAMIN D250 MCG PO (16:47)
[2019-02-07] MEDS ORDERED: CYMBALTA30 MG PO (16:47)
== END 2019-02-05 23:01 | disposition home or self-care (01) ==
LOC: ER 19:15
DX: D50.9 Iron deficiency anemia, unspecified (principal)
CPT/HCPCS: 36415; 80048; 85025; 86850; 86900; 99283

== ENCOUNTER → 2019-02-09 | Day surgery (SDC) | payer MEDICARE, BC ==
[2019-02-08 13:16] LABS: BASOPHILS % 0.6 % (0.0-1.0); EOSINOPHILS # (AUTO) 0.3 (0.0-0.4); EOSINOPHILS % 8.5 % (0.0-6.0); HEMATOCRIT 25.3 % (34.2-44.1); HEMOGLOBIN 7.5 g/dL (12.0-16.0); LYMPHOCYTES # (AUTO) 0.7 (1.0-3.2); LYMPHOCYTES % 18.4 % (18.0-39.1); MEAN CORPUSCULAR HEMOGLOBIN 27.4 pg (28-32); MEAN CORPUSCULAR HGB CONC 29.6 g/dL (31-35); MEAN CORPUSCULAR VOLUME 92.3 fL (81-99); MONOCYTES # (AUTO) 0.3 (0.2-0.8); MONOCYTES % 9.3 % (4.4-11.3); NEUTROPHILS # (AUTO) 2.2 (2.1-6.9); NEUTROPHILS % 62.9 % (38.7-80.0); PLATELET COUNT 71 x10e3/uL (140-360); RED BLOOD COUNT 2.74 x10e6/uL (3.6-5.1)
[2019-02-08 13:22] LABS: INR 1.01; PROTHROMBIN TIME 13.8 seconds (11.9-14.5)
[2019-02-08 13:30] LABS: ALANINE AMINOTRANSFERASE 26 IU/L (0-55); ALBUMIN 2.7 g/dL (3.5-5.0); ALBUMIN/GLOBULIN RATIO 0.8 (0.8-2.0); ALKALINE PHOSPHATASE 158 IU/L (40-150); ANION GAP 13.2 mmol/L (8-16); BLOOD UREA NITROGEN 12 mg/dL (7-26); BUN/CREATININE RATIO 16 (6-25); CALCIUM 8.3 mg/dL (8.4-10.2); CARBON DIOXIDE 27 mmol/L (22-29); CHLORIDE 99 mmol/L (98-107); CREATININE, SERUM 0.77 mg/dL (0.57-1.11); EST GLOMERULAR FILTRATION RATE > 60 ML/MIN (60-); GLUCOSE 179 mg/dL (74-118); POTASSIUM 4.2 mmol/L (3.5-5.1); SODIUM 135 mmol/L (136-145)
[~2019-02-09] MED LIST changes: +CYMBALTA30 MG PO; +FENTANYL CITRATE/PF 100MCG/2 ML INJ ONE; +PROPOFOL IV EMULSION 10 MG/ML 50 ML VIAL ONE; +VICTOZA 2-0.6 MG/0.1 SQ; +VITAMIN D250 MCG PO
[2019-02-09 10:40] VITALS: BP 114/69
--- NOTE | 2019-02-09 18:08 | Operative Report ---
DATE OF PROCEDURE: 02/09/2019 SURGEON: Gerson Denton MD INDICATIONS FOR EGD: Anemia, history of cirrhosis of the liver, history of GAVE. MEDICATIONS: The patient was done under MAC, please see anesthesiologist's note. PROCEDURE IN DETAIL: With the patient lateral decubitus position, a flexible fiberoptic Olympus gastroscope was introduced into the esophagus under direct visualization without any difficulty. Grade 2 esophageal varices were noted in the esophagus without active bleeding. The scope was then advanced with ease into the stomach and some changes compatible with portal hypertensive gastropathy were noted. Gastric antral vascular ectasia were noted and fulguration was carried out with the APC probe with excellent hemostasis. Pylorus was of normal contour and shape, was intubated with ease and the scope was advanced all the way to the second portion of the duodenum. The scope was then withdrawn slowly and the mucosa overlying the proximal second portion and duodenal bulb appeared to be within normal limits. The scope was then withdrawn back into the stomach and retroflexed mucosa overlying the fundus grossly appeared to be within normal limits. Some cardiac varices were noted and also there were some vascular ectasia noted overlying the varices in the cardia. The scope was then straightened out. The stomach was decompressed. The scope was subsequently withdrawn. The patient tolerated the procedure well. IMPRESSION: 1. Esophageal varices grade 2 without active bleeding. 2. Cardiac varices with some overlying vascular ectasia. 3. Portal hypertensive gastropathy. 4. Gastric antral vascular ectasia fulgurated with APC probe with excellent hemostasis. PLAN: Followup H and H. Increase Protonix to 40 mg one p.o. a.c. b.i.d. Continue Carafate 1 g p.o. a.c. t.i.d. and at bedtime. Gerson Denton MD [facility] [place] /[id number] cc: MD Gerson Olmstead MD
== END | disposition home or self-care (01) ==
LOC: OR 05:55
PROVIDERS: ATTEND Internal Medicine Gastroenterology
DX: K74.60 Unspecified cirrhosis of liver (principal); I85.10 Secondary esophageal varices without bleeding; K31.819 Angiodysplasia of stomach and duodenum without bleeding; I86.4 Gastric varices; K76.6 Portal hypertension; K31.89 Other diseases of stomach and duodenum; J44.9 Chronic obstructive pulmonary disease, unspecified; I25.10 Atherosclerotic heart disease of native coronary artery without angina pectoris; I25.2 Old myocardial infarction; E11.22 Type 2 diabetes mellitus with diabetic chronic kidney disease; I12.9 Hypertensive chronic kidney disease with stage 1 through stage 4 chronic kidney disease, or unspecified chronic kidney disease; N18.9 Chronic kidney disease, unspecified; Z88.6 Allergy status to analgesic agent; Z79.84 Long term (current) use of oral hypoglycemic drugs
CPT/HCPCS: 36415; 43270; 80053; 85025; 85610; 85730; J3010

== ENCOUNTER 2019-04-15 00:15 | Inpatient (IN) | payer MEDICARE, BC ==
[~2019-04-15] VITALS: Ht 162.6 cm; Wt 99.1 kg
[~2019-04-15 00:15] MED LIST changes: -FENTANYL CITRATE/PF 100MCG/2 ML INJ ONE; -PROPOFOL IV EMULSION 10 MG/ML 50 ML VIAL ONE
[2019-04-15] MEDS ORDERED: SODIUM CHLORIDE 0.9% 500ML 500 ML IV STA (00:21)
[2019-04-15 01:15] LABS: BASOPHILS % 0.6 % (0.0-1.0); EOSINOPHILS # (AUTO) 0.5 (0.0-0.4); EOSINOPHILS % 8.7 % (0.0-6.0); LYMPHOCYTES # (AUTO) 0.8 (1.0-3.2); LYMPHOCYTES % 15.1 % (18.0-39.1); MEAN CORPUSCULAR HEMOGLOBIN 26.4 pg (28-32); MEAN CORPUSCULAR HGB CONC 28.8 g/dL (31-35); MONOCYTES # (AUTO) 0.6 (0.2-0.8); MONOCYTES % 10.6 % (4.4-11.3); NEUTROPHILS # (AUTO) 3.4 (2.1-6.9); NEUTROPHILS % 64.8 % (38.7-80.0); PLATELET COUNT 88 x10e3/uL (140-360); RED BLOOD COUNT 2.61 x10e6/uL (3.6-5.1); RED CELL DISTRIBUTION WIDTH 16.7 % (11.7-14.4)
--- NOTE | 2019-04-15 01:17 | NUR ---
ER MD AND PRIMARY RN NOTIFIED AND AWARE OF CRITICAL LAB VALUE, HGB 6.9.
[2019-04-15 01:18] LABS: HEMOGLOBIN 6.9 g/dL (12.0-16.0)
[2019-04-15] MEDS ORDERED: SODIUM CHLORIDE 0.9% 250ML 250 ML IV ONE (01:30)
[2019-04-15 01:41] LABS: ALANINE AMINOTRANSFERASE 19 IU/L (0-55); ALBUMIN 2.8 g/dL (3.5-5.0); ALBUMIN/GLOBULIN RATIO 0.8 (0.8-2.0); ALKALINE PHOSPHATASE 162 IU/L (40-150); ANION GAP 13.2 mmol/L (8-16); BLOOD UREA NITROGEN 11 mg/dL (7-26); BUN/CREATININE RATIO 11 (6-25); CALCIUM 8.2 mg/dL (8.4-10.2); CARBON DIOXIDE 27 mmol/L (22-29); CHLORIDE 98 mmol/L (98-107); CREATINE KINASE 44 IU/L (29-168); CREATININE, SERUM 1.02 mg/dL (0.57-1.11); EST GLOMERULAR FILTRATION RATE 54 ML/MIN (60-); GLUCOSE 324 mg/dL (74-118); POTASSIUM 4.2 mmol/L (3.5-5.1); SODIUM 134 mmol/L (136-145)
[2019-04-15 02:05] LABS: ABG HCO3 30 mmol/L (23-28); ABG PCO2 50 mmHg (41-51); ABG PH 7.38 (7.31-7.41); ABG PO2 66 mmHg (80-105)
[2019-04-15 02:47] LABS: CLARITY,URINE CLEAR (CLEAR); COLOR,URINE YELLOW (YELLOW); LEUKOCYTE ESTERASE ,URINE NEGATIVE (NEGATIVE); NITRITE,URINE NEGATIVE (NEGATIVE); PROTEIN,URINE DIPSTICK NEGATIVE (NEGATIVE)
[2019-04-15 02:48] LABS: BACTERIA,URINE FEW /HPF; BILIRUBIN,URINE NEGATIVE (NEGATIVE); EPITHELIAL CELLS,URINE FEW /LPF; KETONES,URINE NEGATIVE (NEGATIVE); URINE UROBILINOGEN 0.2 mg/dL (0.2 - 1); WBC,URINE (MAN) 0-5 /HPF (0-5)
[2019-04-15] MEDS ORDERED: DEXTROSE 50% SYRINGE 50 ML IV PRN (06:45)
--- NOTE | 2019-04-15 07:00 | NUR ---
RECEIVED BEDSIDE REPORT FROM REAL ESTATE RENTAL AGENT. PATIENT SLEEPING, EASILY ARROUSED. RECEIVING 1ST UNIT OF PRBC VIA LEFT AC 20 GAUGE. PATIENT DOES NOT HAVE MED LIST, PER NURSE HE SON WILL BRING IT TO THE HOSPITAL WHEN HE COMES BACK PATIENT LINEN IS SATURATED WITH URINE. LINEN CHANGED, PATIENT CLEANED. PLACED PURE WICK ON PATIENT FOR URINE
[2019-04-15] MEDS: INSULIN REGULAR, HUMAN 100 UNIT/1 ML 3ML VIAL SQ SCH ×4 (07:30→20:50)
--- NOTE | 2019-04-15 08:05 | NUR ---
2ND UNIT PRBC INFUSING. PATIENT TOLERATED 1ST UNIT. PATIENTS SON AT BEDSIDE, URSULA MEDICATION
--- NOTE | 2019-04-15 09:02 | NUR ---
DR. CALIX AT BEDSIDE EVLAUATING PATIENT
[2019-04-15 09:30] LABS: PLATELET ESTIMATE MARKEDLY DECREASED
--- NOTE | 2019-04-15 09:37 | Diagnostic Imaging Report ---
EXAMINATION: CHEST SINGLE (PORTABLE) INDICATION: Pneumonia COMPARISON: Chest radiograph dated 03/20/2019. FINDINGS: LINES/TUBES:None LUNGS:The lungs are hypoinflated.. No focal consolidation or davion pulmonary edema. Mild elevation of the right hemidiaphragm. PLEURA:No pleural effusion or pneumothorax. MEDIASTINUM:The cardiomediastinal silhouette appears unchanged in size and shape. Atherosclerotic calcifications of the thoracic aorta. BONES/SOFT TISSUES:No acute osseous injury. ABDOMEN:No free air under the diaphragm. IMPRESSION: Bilateral hypoinflation. Signed by: Dr. Ramona Manley M.D. on 04/15/2019 9:35 AM
[2019-04-15 09:56] LABS: FERRITIN 12.18 ng/mL (4.63-204.00)
[2019-04-15 10:14] LABS: FOLATE 11.7 ng/mL (7.0-15.4)
--- NOTE | 2019-04-15 10:22 | History and Physical ---
CHIEF COMPLAINT: "My sugar was high." HISTORY OF PRESENT ILLNESS: This is a 68-year-old woman who was brought to [facility] because of elevated glucose levels. The patient has also been more confused over the last couple of days. The patient also states for the past couple of days she has been very weak. The patient denies any melena, hematochezia, but in the emergency room the patient was found to have a hemoglobin of 6.9 g/dL. The patient unfortunately is not a reliable historian. She has history of decompensated liver cirrhosis as well as esophageal varices. She also has a history of recurrent bouts of hepatic encephalopathy. The patient was admitted on March 01, 2019, to [facility] because of anemia. During the hospitalization, the patient underwent EGD, which revealed grade 1-2 esophageal varices without active bleeding or stigmata of recent hemorrhage. 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 In the emergency room on this admission, the patient was found to have white blood cell count of 5200 with 64% segmented neutrophils. The patient's BUN and creatinine is 11 and 1.02 respectively. Serum glucose in emergency room was 324 mg/dL. Urinalysis performed in the emergency room was unremarkable. REVIEW OF SYSTEMS: GENERAL: Weight is increased, but she cannot quantify. No fever or chills, been more confused lately according to family members. HEENT: No headaches. No vision changes. CARDIOVASCULAR/RESPIRATORY: The patient denies any chest pain. No shortness of breath or cough. GI: Denies any melena or hematochezia, but states she has had some mid epigastric pain for past couple of days. The patient unfortunately is a poor historian. GENITOURINARY: The patient denies any UTI symptoms. NEUROMUSCULAR: She is bedbound. The patient states that she has weakness in both of her arms as well as her left lower extremity. PAST MEDICAL HISTORY: 1. Decompensated liver cirrhosis. 2. Esophageal varices. 3. Recurrent upper gastrointestinal bleeding secondary to esophageal varices. 4. Extreme obesity, BMI of 42. 5. Type 2 diabetes with neuropathy. 6. Depression. 7. Mild cognitive impairment. 8. Chronic diastolic congestive heart failure as well as stage 3 chronic kidney disease. 9. Hyperlipidemia. 10. Hypertensive heart disease. 11. Ischemic heart disease. 12. GERD. 13. Anxiety disorder. ALLERGIES: MORPHINE. PAST SURGICAL HISTORY: 1. Left hip replacement. 2. Right knee replacement. 3. Left [id number]-ega-[id number] amputation. 4. Laparoscopic cholecystectomy. 5. Hysterectomy. FAMILY HISTORY: The patient's mother from complications of diabetes mellitus. SOCIAL HISTORY: Ms. Harden is , lives with her . She smokes tobacco. She denies any alcohol use. MEDICATIONS: 1. Cymbalta 60 mg every night. 2. Vitamin D2 of 50,000 units once a week. 3. Furosemide 40 mg b.i.d. 4. Gabapentin 600 mg every 6 hours. 5. Glimepiride 2 mg daily. 6. Lactulose 10 g twice a day. 7. Pantoprazole 40 mg daily. 8. Potassium chloride 10 mEq twice a day. 9. Propranolol 10 mg twice daily. 10. Xifaxan 500 mg twice a day. 11. Spironolactone 25 mg b.i.d. 12. Carafate 1 g every 6 hours. 13. Trazodone 30 mg at bedtime. PHYSICAL EXAMINATION: GENERAL: She is semi alert. She is oriented to herself only. She is confused very easily. She appears to be encephalopathic. VITAL SIGNS: Height is 5 feet 4 inches, weight is 250 pounds, BMI 43. Blood pressure is 100/60. In the emergency room, the blood pressure was as low as 85/65, pulse 78, respiratory rate 22, oxygen saturation 100% on room air, and temperature 98.3. INTEGUMENT: Skin is warm and dry. No obvious pallor. No jaundice or diaphoresis. HEENT: The patient has icteric sclerae. Moist mucous membranes. NECK: Supple. CARDIOVASCULAR: Distant heart sounds. Regular rate and rhythm. No S3 or gallop. LUNGS: No rales. No rhonchi. ABDOMEN: Obese, nontender. Difficult to assess for hepatosplenomegaly due to the patient's body habitus. EXTREMITIES: The patient has a right [id number]-ipx-piqd amputation. The left lower leg has 1+ edema. NEUROLOGIC: She has weakness in all three of her extremities. No pinprick sensation in the plantar aspect left foot. DIAGNOSES: 1. Acute on chronic anemia likely secondary to upper gastrointestinal bleeding. 2. History of esophageal varices. 3. Decompensated liver cirrhosis. 4. Recurrent bouts of hepatic encephalopathy. 5. Extreme obesity, BMI of 43. 6. Type 2 diabetes mellitus with neuropathy. 7. Chronic diastolic congestive heart failure. PLAN: 1. Glucose control. 2. Order chest x-ray. 3. Follow hemoglobin and hematocrit. 4. Transfuse blood. 5. Consult Gastroenterology since the patient may have another esophageal variceal bleed. 6. Poor overall prognosis. 7. Palliative care in the form of hospice should be considered. I spent 50 minutes in the care of this patient. MD STEFAN Ge/GUILLERMOL /[id number] MTDD
[2019-04-15] MEDS: SUCRALFATE 1 GM TAB PO SCH ×3 (11:30→20:50)
[2019-04-15] MEDS: RIFAXIMIN 550 MG TABLET PO SCH ×2 (11:30→16:37)
[2019-04-15] MEDS: LACTULOSE SYRUP 20 GM/30 ML UDC PO SCH ×2 (11:30→16:38)
[2019-04-15 12:26] LABS: HEMATOCRIT 26.5 % (34.2-44.1); HEMOGLOBIN 7.9 g/dL (12.0-16.0)
--- NOTE | 2019-04-15 12:30 | NUR ---
RECEIVED TO RM PT IN STABLE CONDITION, DENIES PAIN AT THIS TIME, L FA 20G NO SS OF INFILTRATION NOTED, UPDATED ON POC VOCIED UNDERSTANDING, CALL LIGHT IN REACH WILL CONTINUE TO MONITOR
[2019-04-15 12:39] VITALS: BP 115/58
[2019-04-15 12:59] VITALS: BP 115/58
[2019-04-15] MEDS: PROPRANOLOL HCL 10 MG TAB PO SCH (16:36)
[2019-04-15] MEDS: SPIRONOLACTONE 25 MG TAB PO SCH (16:36)
[2019-04-15] MEDS: FUROSEMIDE 40 MG TAB PO SCH (16:37)
[2019-04-15] MEDS: POTASSIUM CHLORIDE 10MEQ EA PO SCH (16:37)
[2019-04-15 17:08] VITALS: BP 109/59
--- NOTE | 2019-04-15 19:33 | NUR ---
Received bedside report from day nurse. Patient resting in bed, no s/s of distress or c/o pain at this time. All safety measures in place. Will continue to monitor.
[2019-04-15 20:00] VITALS: BP 115/71
[2019-04-15] MEDS: DULOXETINE HCL 30 MG DELAYED RELEASE PO SCH (20:50)
--- NOTE | 2019-04-15 20:50 | NUR ---
Patient requesting trazodone. Per melvin Fitzpatrick to give patient trazodone as ordered and scheduled.
[2019-04-15] MEDS: TRAZODONE HCL 50 MG TAB PO SCH (20:57)
[2019-04-15 21:38] VITALS: BP 115/71
[2019-04-16] VITALS (8 sets, daily range): BP systolic 98–118; BP diastolic 53–69
[2019-04-16 06:38] LABS: BASOPHILS % 0.3 % (0.0-1.0); EOSINOPHILS # (AUTO) 0.4 (0.0-0.4); EOSINOPHILS % 11.7 % (0.0-6.0); HEMATOCRIT 25.1 % (34.2-44.1); HEMOGLOBIN 7.4 g/dL (12.0-16.0); LYMPHOCYTES # (AUTO) 0.7 (1.0-3.2); LYMPHOCYTES % 19.7 % (18.0-39.1); MEAN CORPUSCULAR HEMOGLOBIN 26.5 pg (28-32); MEAN CORPUSCULAR HGB CONC 29.5 g/dL (31-35); MONOCYTES # (AUTO) 0.4 (0.2-0.8); MONOCYTES % 10.1 % (4.4-11.3); NEUTROPHILS # (AUTO) 2.1 (2.1-6.9); NEUTROPHILS % 57.7 % (38.7-80.0); PLATELET COUNT 62 x10e3/uL (140-360); RED BLOOD COUNT 2.79 x10e6/uL (3.6-5.1); RED CELL DISTRIBUTION WIDTH 18.1 % (11.7-14.4)
--- NOTE | 2019-04-16 06:58 | NUR ---
Received patient lying in bed with eyes open. Respiration even and unlabored without SOB. Call light in reach.
[2019-04-16 07:00] LABS: ALANINE AMINOTRANSFERASE 17 IU/L (0-55); ALBUMIN 2.4 g/dL (3.5-5.0); ALBUMIN/GLOBULIN RATIO 0.8 (0.8-2.0); ALKALINE PHOSPHATASE 148 IU/L (40-150); ANION GAP 10.9 mmol/L (8-16); BLOOD UREA NITROGEN 12 mg/dL (7-26); BUN/CREATININE RATIO 15 (6-25); CALCIUM 7.9 mg/dL (8.4-10.2); CARBON DIOXIDE 27 mmol/L (22-29); CHLORIDE 104 mmol/L (98-107); CREATININE, SERUM 0.78 mg/dL (0.57-1.11); EST GLOMERULAR FILTRATION RATE > 60 ML/MIN (60-); GLUCOSE 143 mg/dL (74-118); POTASSIUM 3.9 mmol/L (3.5-5.1); SODIUM 138 mmol/L (136-145)
--- NOTE | 2019-04-16 07:04 | NUR ---
Bedside report given to day nurse. Patient awake and resting in bed, no s/s of distress or c/o pain at this time. All safety measures in place.
[2019-04-16] MEDS: INSULIN REGULAR, HUMAN 100 UNIT/1 ML 3ML VIAL SQ SCH ×4 (07:30→20:45)
[2019-04-16] MEDS: PROPRANOLOL HCL 10 MG TAB PO SCH ×4 (09:00→19:44)
[2019-04-16] MEDS: SUCRALFATE 1 GM TAB PO SCH ×4 (09:06→22:00)
[2019-04-16] MEDS: SPIRONOLACTONE 25 MG TAB PO SCH ×2 (09:06→19:43)
[2019-04-16] MEDS: PANTOPRAZOLE SOD 40 MG TABEC PO SCH (09:06)
[2019-04-16] MEDS: FUROSEMIDE 40 MG TAB PO SCH ×2 (09:08→19:44)
[2019-04-16] MEDS: LACTULOSE SYRUP 20 GM/30 ML UDC PO SCH ×2 (09:08→19:44)
[2019-04-16] MEDS: POTASSIUM CHLORIDE 10MEQ EA PO SCH ×2 (09:08→19:44)
[2019-04-16] MEDS: RIFAXIMIN 550 MG TABLET PO SCH ×2 (09:08→19:44)
--- NOTE | 2019-04-16 10:35 | NUR ---
Patient is transported via bed for CT at this time.
[2019-04-16 10:43] LABS: BASOPHILS % 0.5 % (0.0-1.0); EOSINOPHILS # (AUTO) 0.5 (0.0-0.4); EOSINOPHILS % 12.4 % (0.0-6.0); HEMOGLOBIN 7.6 g/dL (12.0-16.0); LYMPHOCYTES # (AUTO) 0.6 (1.0-3.2); LYMPHOCYTES % 16.9 % (18.0-39.1); MEAN CORPUSCULAR HGB CONC 30.4 g/dL (31-35); MEAN CORPUSCULAR VOLUME 88.7 fL (81-99); MONOCYTES # (AUTO) 0.4 (0.2-0.8); MONOCYTES % 9.9 % (4.4-11.3); NEUTROPHILS # (AUTO) 2.2 (2.1-6.9); PLATELET COUNT 61 x10e3/uL (140-360); RED BLOOD COUNT 2.82 x10e6/uL (3.6-5.1); RED CELL DISTRIBUTION WIDTH 18.1 % (11.7-14.4)
--- NOTE | 2019-04-16 13:03 | NUR ---
Patient is transported back to room from GI Scan at this time.
[2019-04-16] MEDS: IRON SUCROSE 100 MG in SODIUM CHLORIDE 0.9% 100 ML 100 ML IV SCH (13:07)
[2019-04-16] MEDS ORDERED: HEPARIN SOD (PORCINE) 1000 UNIT/ML SDV ONE (13:23)
--- NOTE | 2019-04-16 15:16 | Diagnostic Imaging Report ---
Tagged-RBC GI Bleed Study Clinical information: 68-year-old male with anemia.. Discussion: The patient's own red blood cells were labeled with 27.5 mCi of technetium-99m pertechnetate using the in vitro method (UltraTag). Dynamic images of the abdomen were obtained through 60 minutes. Distribution of tracer activity appears physiologic throughout the abdomen. No abnormal accumulation of tracer is seen within the gastrointestinal lumen. Impression: No scan evidence of active gastrointestinal bleeding at this time. Signed by: Dr. Ellen Long M.D. on 04/16/2019 3:13 PM
--- NOTE | 2019-04-16 17:33 | Progress Note ---
DATE: Internal Medicine Progress Note SUBJECTIVE: A 68 years old female with past medical history positive for cirrhosis of the liver, diabetes, hypertension, alcohol abuse in the past, hyperlipidemia, admitted with anemia. The patient was seen by Dr. Gerson Denton of Gastroenterology, who recommended a bleeding scan. The patient had several EGDs done in the past, which showed esophageal varices. The patient underwent blood transfusion. Hemoglobin is better now. REVIEW OF SYSTEMS: CARDIOVASCULAR: No chest pain or palpitation. RESPIRATORY: No shortness of breath. No cough. GASTROINTESTINAL: No nausea or vomiting. No diarrhea. GENITOURINARY: No frequency or dysuria. ALLERGIES: ARE LISTED IN THE CHART. PAST MEDICAL HISTORY: Positive for cirrhosis of the liver secondary to alcohol abuse, diabetes mellitus, hypertension. SOCIAL HISTORY: She used to drink alcohol in the past, not anymore. She does not smoke anymore. PHYSICAL EXAMINATION: HEART: Showed regular rhythm. Normal S1, S2 sound. LUNGS: Clear bilaterally. ABDOMEN: Soft. EXTREMITIES: Show right above-knee amputation. VITAL SIGNS: Blood pressure 198/53, temperature 97.5, heart rate 80 per minute, respiratory rate 18 per minute, O2 saturation 94%. LABORATORY DATA: CBC; white blood count is 3.63, hemoglobin 7.4, hematocrit 25.1, MCV is 90, and platelet count 62,000. Neutrophils 57%, lymphocytes 19.7%, monocytes 10.1%, eosinophils 11.7%, basophils 0.3%. BMP; sodium 138, potassium 3.9, chloride 104, CO2 27, BUN 12, creatinine 0.78, glucose 143, calcium 7.9, total bilirubin 1.7, AST 27, ALT 17, alkaline phosphatase 148. Ammonia level is 96. Urinalysis did not show anything. Chest x-ray came back negative. FINAL IMPRESSION: 1. Acute anemia secondary to gastrointestinal bleed. 2. Cirrhosis of the liver. 3. Uncontrolled diabetes mellitus type 2. 4. Obesity. PLAN OF TREATMENT: Continue with iron sucrose 100 mg IV once a day, D50 IV push as needed for hypoglycemia, Cymbalta 60 mg daily, furosemide 40 mg twice a day. Monitor blood sugar before meals and at bedtime. Lactulose 15 g twice a day, Protonix 40 mg daily, potassium 10 mEq twice a day, propranolol 10 mg twice a day, Xifaxan 550 mg twice a day, Aldactone 25 mg twice a day, Carafate 1 g before meals and at bedtime, trazodone 300 mg at bedtime. As I said the bleeding scan has been ordered. We are going to monitor hemoglobin and hematocrit. If bleeding scan is negative, the patient might be able to go home today. MD IMANI Olmstead/LUPIS /[id number]
--- NOTE | 2019-04-16 19:12 | NUR ---
Report given to night coordinator. Respiration even and unlabored without SOB. Call light in reach.
--- NOTE | 2019-04-16 21:00 | NUR ---
PATIENT RESTING IN BED IN STABLE CONDITION, NO SIGNS OF RESPIRATORY DISTRESS NOTED. PUREWICK IN INTACT AND RUNNING AND PATIENT VOICES NO PAIN AT THIS TIME. SKIN IS INTACT PSORIASIS IS NOTED ON LEFT LEG AND RIGHT ARM AND BLOOD SUGAR WAS WITHIN NORMAL RANGE. BED IS IN LOWEST POSITION, SIDE RAILS ARE UP, CALL LIGHT WITHIN REACH, WILL CONTINUE TO MONITOR.
[2019-04-16] MEDS: DULOXETINE HCL 30 MG DELAYED RELEASE PO SCH (22:00)
[2019-04-16] MEDS: TRAZODONE HCL 50 MG TAB PO SCH (22:00)
--- NOTE | 2019-04-17 00:30 | NUR ---
DR. Rani MESSINA HAS MADE ROUNDS WITH THE PATIENT, INFORMED HER THAT SHE WILL UNDERGO A SMALL BOWEL SERIES IN THE MORNING AND TO STAY NPO.
[2019-04-17 02:27] VITALS: BP 90/52
[2019-04-17 04:00] VITALS: BP 89/60
[2019-04-17] MEDS: INSULIN REGULAR, HUMAN 100 UNIT/1 ML 3ML VIAL SQ SCH ×3 (07:30→16:39)
--- NOTE | 2019-04-17 07:52 | NUR ---
am PO meds being held due to NPO status.
[2019-04-17 08:27] VITALS: BP 111/52
[2019-04-17 08:50] VITALS: BP 111/82
[2019-04-17] MEDS: IRON SUCROSE 100 MG in SODIUM CHLORIDE 0.9% 100 ML 100 ML IV SCH (09:03)
--- NOTE | 2019-04-17 10:51 | Progress Note ---
DATE: Internal Medicine Progress Note. SUBJECTIVE: The patient is a doing well. No significant complaint. She is going for a small bowel series today. PHYSICAL EXAMINATION: VITAL SIGNS: Blood pressure 111/52, temperature 96.8, heart rate 95 per minute, respiratory rate 18 per minute, oxygen saturation 95%. HEART: Showed regular rhythm. Normal S1, S2 sound. LUNGS: Clear bilaterally. ABDOMEN: Soft. EXTREMITIES: Show right above-knee amputation. IMAGING: The bleeding scan came back negative for evidence of any active bleeding. LABORATORY DATA: BMP, sodium 138, potassium 3.9, chloride 104, CO2 of 27, BUN 12, creatinine 0.78, glucose 143. CBC; white blood count 3.72, hemoglobin 7.6, hematocrit 25.0, platelet count 61,000. AST 27, ALT 17, total bilirubin 1.7, and alkaline phosphatase 148. ASSESSMENT AND PLAN: The patient is going to go for a small bowel series today. If that is negative, the patient might be able to go home. In the meantime, the patient received iron infusion. Continue to monitoring blood sugar before meals and at bedtime. Continue Cymbalta 60 mg daily, lactulose 15 g twice a day, trazodone 300 mg at bedtime, furosemide 40 mg twice a day, Xifaxan 550 mg twice a day, propranolol 10 mg twice a day, Protonix 40 mg daily, Carafate 1 g before meals and at bedtime, potassium chloride 10 mEq twice a day, and spironolactone 25 mg twice a day, so if small bowel series negative, the patient might be able to go home today. MD IMANI Olmstead/GUILLERMOL /[id number]
[2019-04-17] MEDS: SUCRALFATE 1 GM TAB PO SCH ×3 (11:30→16:30)
[2019-04-17] MEDS: PANTOPRAZOLE SOD 40 MG TABEC PO SCH (13:04)
[2019-04-17] MEDS: SPIRONOLACTONE 25 MG TAB PO SCH ×2 (13:07→16:36)
[2019-04-17] MEDS: LACTULOSE SYRUP 20 GM/30 ML UDC PO SCH ×2 (13:08→16:36)
[2019-04-17] MEDS: RIFAXIMIN 550 MG TABLET PO SCH ×2 (13:08→16:36)
[2019-04-17] MEDS: POTASSIUM CHLORIDE 10MEQ EA PO SCH ×2 (13:08→16:36)
[2019-04-17] MEDS: FUROSEMIDE 40 MG TAB PO SCH ×2 (13:08→16:36)
[2019-04-17] MEDS: PROPRANOLOL HCL 10 MG TAB PO SCH ×2 (13:08→16:36)
--- NOTE | 2019-04-17 16:12 | Diagnostic Imaging Report ---
FLUOROSCOPIC SMALL BOWEL SERIES MARINATOR(S): Reed Haddad MD Indication: Anemia Comparison: None. Radiation Dose: Total dose: 11.7 mGy Total fluoroscopy time: 0.6 minutes Procedure: Small bowel follow through exam was performed using oral barium. Preliminary image was obtained before administration of contrast and serial overhead images were obtained after administration of oral barium. Fluoroscopy was performed and spot images were obtained. DISCUSSION: SMALL BOWEL: Bulb and sweep are normal. Duodenal-jejunal junction is in the normal expected position. Small bowel loops are normal in caliber and distribution. There is no evidence of fistula, mucosal changes, stricture or dilation. The transit time was within normal limits. COLON: Diverticulosis of the sigmoid colon. Partially visualized proximal colon is unremarkable. IMPRESSION: Unremarkable fluoroscopic small bowel series. Sigmoid diverticulosis. Signed by: Reed Haddad MD on 04/17/2019 4:09 PM
[2019-04-17 16:33] VITALS: BP 103/58
== END 2019-04-17 19:59 | disposition home or self-care (01) | DRG 378 ==
LOC: ER 00:15 → ERHOLD 01:55 → OBSVTOIN 09:11 → MED/SURG 12:25
PROVIDERS: ADMIT Internal Medicine; ATTEND Internal Medicine
PROC: 30233N1 Transfusion of Nonautologous Red Blood Cells into Peripheral Vein, Percutaneous Approach (ICD-10-PCS; principal; 2019-04-15)
DX: K92.2 Gastrointestinal hemorrhage, unspecified (principal); D62 Acute posthemorrhagic anemia; I50.32 Chronic diastolic (congestive) heart failure; Z68.41 Body mass index [BMI] 40.0-44.9, adult; I13.0 Hypertensive heart and chronic kidney disease with heart failure and stage 1 through stage 4 chronic kidney disease, or unspecified chronic kidney disease; K70.30 Alcoholic cirrhosis of liver without ascites; I85.10 Secondary esophageal varices without bleeding; K72.90 Hepatic failure, unspecified without coma; E11.65 Type 2 diabetes mellitus with hyperglycemia; E11.40 Type 2 diabetes mellitus with diabetic neuropathy, unspecified; Z79.4 Long term (current) use of insulin; E66.01 Morbid (severe) obesity due to excess calories; Z89.611 Acquired absence of right leg above knee; N18.3 Chronic kidney disease, stage 3 (moderate); E11.22 Type 2 diabetes mellitus with diabetic chronic kidney disease; E78.5 Hyperlipidemia, unspecified; D50.0 Iron deficiency anemia secondary to blood loss (chronic)
CPT/HCPCS: 36415; 36600; 71045; 74250; 78278; 80053; 81001; 82140; 82550; 82553; 82607; 82728; 82746; 82805; 82948; 83540; 83880; 84466; 84484; 85014; 85018; 85025; 85045; 86850; 86900; 86920; 93005; 96372; 99284; A9512; J1644; J1756; J1817; J7040; J7050; P9016

== ENCOUNTER 2019-07-20 18:20 | Inpatient (IN) | payer MEDICARE, BC, OTHER ==
[~2019-07-20] VITALS: Ht 162.6 cm; Wt 107.5 kg
[~2019-07-20 18:20] MED LIST changes: -CYMBALTA60 MG PO; -GADOBENATE DIMEGLUMINE 1 ML IV ONE; -HEMOCYTE PLUS1 EACH PO; -POTASSIUM CHLO20 ME1 PO; -PROPRANOLOL HCL10 MG PO; -SODIUM CHLORIDE 0.9% 50ML 50 ML ONE; -TRAZODONE HCL300 MG PO; -VICTOZA 18 MG/3 ML SC
--- OUTSIDE RECORDS SUMMARY | 2019-07-20 18:27 | XMS REPORT ---
Author Author [facility] t Organization [facility] t Address [address] [place] [address] Phone Unavailable Care Team Providers Care Lube Technician Name Role Phone JOHN LOPEZ MD PCP JOHN LOPEZ Attphys Unavailable Shiv MEYER Attphys Unavailable NEIDA CASTAÑEDA Attphys Unavailable LUKASZ OWUSU Attphys Unavailable MARVIN, Jeanna MONROE Attphys Unavailable EDEN ALVAREZ Attphys Unavailable JOHN LOPEZ Admphys Unavailable Shiv MEYER Admphys Unavailable EDEN ALVAREZ Admphys Unavailable Payers Payer Name Policy Type Policy Number Effective Date Expiration Date Shiv mcknight [facility] [id number] 2008 00:00:00 [facility] Medicare A & B [id number] 2006 00:00:00 [facility] Medicare A & B [id number] 2006 00:00:00 [facility] Employees [id number] 2008 00:00:[address] [facility] Medicare A & B [id number] 2006 00:00:00 [facility] Employees [id number] 2008 00:00:0 0 [facility] Medicare A & B [id number] 2006 00:00:00 [facility] Employees [id number] 2008 00:00:[address] [facility] Medicare A & B [id number] 2006 00:00:00 C [facility] Employees [id number] 2008 00:00:0 0 [facility] Medicare A & B [id number] 2006 00:00:00 C [facility] Employees [id number] 2008 00:00:[address] [facility] Medicare A & B [id number] 2006 00:00:00 C [facility] Employees [id number] 2008 00:00:0 0 [facility] Medicare A & B [id number] 2006 00:00:00 C [facility] Problems Condition Name Condition Details Condition Category Status Onset Date Resolution Date Last Treatment Date Treating Clinician Comments Source Anemia Anemia Problem Active 2015-08-14 00:00:00 [facility] Cellulitis Cellulitis Problem Active 2015-08-14 00:00:00 [facility] Knee pain, right Knee pain, right Problem Active 2015-08-14 00:00:00 [facility] Weakness Weakness Problem Active 2015-08-14 00:00:00 [facility] Chest pain Chest pain Problem Active [facility] Hepatic cirrhosis Cirrhosis Problem Active [facility] Hyperglycemia Hyperglycemia Problem Active [facility] Infected hardware in right lower extremity Infected hardware in right leg Problem Active [facility] Pneumonia Pneumonia Problem Active [facility] Tachycardia Tachycardia Problem Active [facility] Urinary tract infection UTI (urinary tract infection) Problem Active [facility] Volume depletion Volume depletion Problem Active [facility] Elevated troponin level Elevated troponin Problem Active [facility] Allergies, Adverse Reactions, Alerts Allergy Name Allergy Type Status Severity Reaction(s) Onset Date Inacti ve Date Treating Clinician Comments Source No Known Allergies DA Active U 2018-08-29 00:00:00 [facility] No Known Allergies DA Active U 2018-06-30 00:00:00 [facility] No Known Allergies DA Active U 2018-04-18 00:00:00 [facility] No Known Allergies DA Active U 2018-04-07 00:00:00 [facility] No Known Allergies DA Active U 2018-01-25 00:00:00 [facility] No Known Allergies DA Active U 2017-10-19 00:00:00 [facility] Morphine Allergy to Substance Active Moderate itching 2017-03-18 00:00:00 [facility] Medications Ordered Medication Name Filled Medication Name Start Date Stop Da te Current Medication? Ordering Clinician Indication Dosage Frequency Signature (SIG) Comments Components Source Duloxetine Hcl (Cymbalta) 30 Mg Capsule. Duloxetine Hcl (Cymbalta) 30 Mg Capsule. Yes 60 Bedtime [facility] Ergocalciferol (Vitamin D2) (Vitamin D2) 50 Mcg Capsul e Ergocalciferol (Vitamin D2) (Vitamin D2) 50 Mcg Capsule Yes 1.25 Q Week [facility] Furosemide 40 Mg Tablet Furosemide 40 Mg Tablet Yes 40 Twice A Day [facility] Gabapentin 600 Mg Tablet Gabapentin 600 Mg Tablet Yes [address] [facility] Glimepiride 2 Mg Tablet Glimepiride 2 Mg Tablet Yes 2 Daily [facility] Lactulose 10 Gm/15 Ml Solution Lactulose 10 Gm/15 Ml Solution Yes [address] [facility] Pantoprazole Sodium (Protonix) 40 Mg Tablet. Pantopr azole Sodium (Protonix) 40 Mg Tablet. Yes 40 Daily [facility] Potassium Chloride 10 Meq Tablet.er Potassium Chloride 10 Meq Tablet. er Yes 10 Twice A Day [facility] Propranolol Hcl 60 Mg Cap.sa.24h Propranolol Hcl 60 Mg Cap.sa.24h Yes 10 Twice A Day [facility] Rifaximin (Xifaxan) 550 Mg Tablet Rifaximin (Xifaxan) 550 Mg Tablet Yes 550 Twice A Day [facility] Spironolactone 25 Mg Tablet Spironolactone 25 Mg Tablet Yes [address] [facility] Sucralfate 1 Gm Tablet Sucralfate 1 Gm Tablet Yes 1 Every 6 Hours [facility] Trazodone Hcl 50 Mg Tablet Trazodone Hcl 50 Mg Tablet Yes 300 Bedtime [facility] Liraglutide (Victoza 2-Elias) 0.6 Mg/0.1 Ml Pen.injctr, 18 Mg Sub-Q Liraglutide (Victoza 2-Elias) 0.6 Mg/0.1 Ml Pen.injctr, 18 Mg Sub-Q 2019-04-15 00:00:00 No 18 Bedtime [facility] Metoprolol Tartrate (Lopressor) 25 Mg Tab, 25 Mg Oral Metoprolol Tartrate (Lopressor) 25 Mg Tab, 25 Mg Oral 2019-04-15 00:00:00 No 25 Twice A Day [facility] Amlodipine Besylate 5 Mg Tablet, 5 Mg Oral Amlodipine Besylate 5 Mg Tablet, 5 Mg Oral 2019-02-07 00:00:00 No 5 Daily [facility] Tramadol Hcl (Ultram 50MG*) 50 Mg Tab, 50 Mg Oral Tram adol Hcl (Ultram 50MG*) 50 Mg Tab, 50 Mg Oral 2019-02-07 00:00:00 No 50 Every 6 Hours [facility] Amlodipine Besylate 5 Mg Tablet, 5 Mg Oral Amlodipine Besylate 5 Mg Tablet, 5 Mg Oral 2018-10-20 00:00:00 No 5 Daily [facility] Diphenhydramine Hcl (Benadryl) 25 Mg Capsule, 50 Diphe nhydramine Hcl (Benadryl) 25 Mg Capsule, 50 2018-10-20 00:00:00 No 50 Bedtim e [facility] Embrel , 50 Mg Embrel , 50 Mg 2018-10-20 00:00:00 No 50 Twice A Day [facility] Furosemide (Lasix) 40 Mg Tablet, 40 Mg Oral Furosemide (Lasix) 40 Mg Tablet, 40 Mg Oral 2018-10-20 00:00:00 No 40 Twice A Day [facility] Gabapentin 100 Mg Capsule, 600 Mg Oral Gabapentin 100 Mg Capsule , 600 Mg Oral 2018-10-20 00:00:00 No 600 Every 12 Hours [facility] Lactulose 20 Gm/30 Ml Solution, 30 Ml Oral Lactulose 2 0 Gm/30 Ml Solution, 30 Ml Oral 2018-10-20 00:00:00 No 30 Twice A Day [facility] Liraglutide (Victoza 3-Elias) 0.6 Mg/0.1 Ml Pen.injctr, 0.6 Mg Injection Liraglutide (Victoza 3-Elias) 0.6 Mg/0.1 Ml Pen.injctr, 0.6 Mg Injection 2018-10-20 00:00:00 No .6 Daily [facility] Otezla , Otezla , 2018-10-20 00:00:00 No [facility] Pantoprazole Sodium (Protonix) 40 Mg Tablet.dr, 40 Mg Oral Pantoprazole Sodium (Protonix) 40 Mg Tablet.dr, 40 Mg Oral 2018-10-20 00:00:00 No [address] [facility] Propranolol Hcl 20 Mg Tablet, Propranolol Hcl 20 Mg Tablet, 2018-10-20 00:00:00 No Daily [facility] Rifaximin (Xifaxan) 550 Mg Tablet, 550 Rifaximin (Xifaxan) 550 M g Tablet, 550 2018-10-20 00:00:00 No 550 Twice A Day [facility] Spironolactone 25 Mg Tablet, 25 Mg Oral Spironolactone 25 Mg Tablet, 25 Mg Oral 2018-10-20 00:00:00 No 25 Twice A Day [facility] Sucralfate 1 Gm Tablet, 1 Gm Oral Sucralfate 1 Gm Tablet, 1 Gm O ral 2018-10-20 00:00:00 No 1 Three Times A Day for Before Me als [facility] Tolterodine Tartrate (Detrol La) 4 Mg Cap.er.24h, 4 Mg Oral Tolterodine Tartrate (Detrol La) 4 Mg Cap.er.24h, 4 Mg Oral 2018-10-20 00:00:00 No 4 Bedtime [facility] Tramadol Hcl/Acetaminophen (Ultracet Tablet) 1 Each Ta blet, 1 Tab Oral Tramadol Hcl/Acetaminophen (Ultracet Tablet) 1 Each Tablet, 1 Tab Oral 2018-10-20 00:00:00 No 1 Every 6 Hours as needed for Iban n [facility] Trazodone Hcl 300 Mg Tablet, Trazodone Hcl 300 Mg Tablet, 2018-10-20 00:00:00 No Bedtime [facility] Victoza , 6 Units Victoza , 6 Units 2018-10-20 00:00:00 No 6 Daily [facility] Amlodipine Besylate (Norvasc) 5 Mg Tab, 5 Mg Oral Amlo dipine Besylate (Norvasc) 5 Mg Tab, 5 Mg Oral 2018-10-11 00:00:00 No 5 Srini y [facility] Furosemide (Lasix) 40 Mg Tablet, 40 Mg Oral Furosemide (Lasix) 40 Mg Tablet, 40 Mg Oral 2018-10-11 00:00:00 No 40 Twice A Day [facility] Hydrocodone , 500 Mg Hydrocodone , 500 Mg 2018-10-07 00:00:[address] [facility] Trazodone Hcl 50 Mg Tablet, 100 Mg Oral Trazodone Hcl 50 Mg Tablet, 100 Mg Oral 2018-10-07 00:00:00 No 100 Bedtime [facility] Zantac , Zantac , 2018-10-07 00:00:00 No As Need ed [facility] Pantoprazole Sodium (Protonix) 40 Mg Tablet.dr, 40 Mg Oral Pantoprazole Sodium (Protonix) 40 Mg Tablet.dr, 40 Mg Oral 2016-11-05 00:00:00 No 40 Daily [facility] Acetaminophen With Codeine (Tylenol With Codeine #3 Tablet) 1 Each Tablet, 300 Mg Oral Acetaminophen With Codeine (Tylenol With Codeine #3 Tablet) 1 Each Tablet, 300 Mg Oral 2016-11-02 00:00:00 No 300 Twic e A Day [facility] Oxybutynin Chloride (Oxybutynin Chloride Er) 5 Mg Tab. er.24, 30 Mg Oral Oxybutynin Chloride (Oxybutynin Chloride Er) 5 Mg Tab.er.24, 30 Mg Oral 2016-11-02 00:00:00 No 30 Twice A Day [facility] Vilazodone Hydrochloride (Viibryd) 40 Mg Tablet, 40 Mg Oral Vilazodone Hydrochloride (Viibryd) 40 Mg Tablet, 40 Mg Oral 2016-11-02 00:00:00 No 40 Daily [facility] Tramadol Hcl (Ultram 50MG*) 50 Mg Tab, 50 Mg Oral Tram adol Hcl (Ultram 50MG*) 50 Mg Tab, 50 Mg Oral 2016-08-02 00:00:00 No 50 Every 8 Hours as needed for Pain [facility] Trazodone 40 Mg, 80 Mg Oral Trazodone 40 Mg, 80 Mg Oral 2016-05-28 00:00:00 No 80 Bedtime [facility] Oxybutynin , Oral Oxybutynin , Oral 2016-03-27 00:00:00 No Daily [facility] Victoza , Injection Victoza , Injection 2016-03-27 00:00:00 No Daily [facility] Colestipol Hcl,Micronized (Colestipol Hcl) 1 Gm Tablet , 1 Gm Oral Colestipol Hcl,Micronized (Colestipol Hcl) 1 Gm Tablet, 1 Gm Oral 2015-12-30 1 00:00:00 No 1 Daily [facility] Etanercept (Enbrel) 25 Mg Kit, Injection Etanercept (Enbrel) 25 Mg Kit, Injection 2016-01-09 00:00:00 No 2XWK [facility] Gabapentin 100 Mg Capsule, 100 Mg Oral Gabapentin 100 Mg Capsule , 100 Mg Oral 2016-01-09 00:00:00 No 100 Twice A Day [facility] Mirabegron (Myrbetriq) 50 Mg Tab.er.24h, 50 Mg Oral Mi rabegron (Myrbetriq) 50 Mg Tab.er.24h, 50 Mg Oral 2016-01-09 00:00:00 No 50 D aily [facility] Trazodone Hcl 50 Mg Tablet, 50 Mg Oral Trazodone Hcl 50 Mg Table t, 50 Mg Oral 2016-01-09 00:00:00 No 50 Bedtime [facility] Victoza , Victoza , 2016-01-09 00:00:00 No Daily [facility] Oxybutynin Chloride (Oxybutynin Chloride Er) 10 Mg Tab .er.24, 10 Mg Oral Oxybutynin Chloride (Oxybutynin Chloride Er) 10 Mg Tab.er.24, 10 Mg Oral 2015-09-22 00:00:00 No 10 Daily [facility] Pregabalin (Lyrica) 50 Mg Cap, 50 Mg Oral Pregabalin ( Lyrica) 50 Mg Cap, 50 Mg Oral 2015-09-22 00:00:00 No 50 Bedtime [facility] Sertraline Hcl 50 Mg Tablet, 50 Mg Oral Sertraline Hcl 50 Mg Tablet, 50 Mg Oral 2015-09-22 00:00:00 No 50 Daily [facility] Tramadol/Acetaminophen (Tramadol-Acetaminophn 37.5-325 ) 1 Ea Tab, 1 Tab Oral Tramadol/Acetaminophen (Tramadol-Acetaminophn 37.5-325) 1 Ea Tab, 1 Tab Oral 2015-09-22 00:00:00 No 1 As Needed [facility] Victoza , Oral Victoza , Oral 2015-09-22 00:00:00 No Daily [facility] Alprazolam 0.5 Mg Tablet, 0.5 Mg Oral Alprazolam 0.5 Mg Tablet, 0.5 Mg Oral 2015-01-29 00:00:00 No .5 Tid Prn [facility] Famotidine (Pepcid) 20 Mg Tablet, 20 Mg Oral Famotidin e (Pepcid) 20 Mg Tablet, 20 Mg Oral 2015-01-29 00:00:00 No 20 Daily [facility] Hydrocodone Bit/Acetaminophen (Himrod 10-325 Tablet) 1 Each Tablet, 1 Tab Oral Hydrocodone Bit/Acetaminophen (Himrod 10-325 Tablet) 1 Each Tablet, 1 Tab Oral 2015-01-29 00:00:00 No 1 Q6 Prn [facility] Hydroxyzine Hcl 25 Mg Tablet, 25 Mg Oral Hydroxyzine H cl 25 Mg Tablet, 25 Mg Oral 2015-01-29 00:00:00 No 25 Q6 Prn [facility] Trazodone Hcl 50 Mg Tablet, 50 Mg Oral Trazodone Hcl 50 Mg Table t, 50 Mg Oral 2015-01-29 00:00:00 No 50 Daily [facility] Triamcinolone (Triamcinolone Acetonide) 15 Gm Oint, Topically Triamcinolone (Triamcinolone Acetonide) 15 Gm Oint, Topically 2015-01-29 00:00:00 No Twice A Day [facility] Rivaroxaban (Xarelto) 10 Mg Tablet, 10 Mg Oral Rivarox aban (Xarelto) 10 Mg Tablet, 10 Mg Oral 2013-06-13 00:00:00 No 10 Daily [facility] Procedures Procedure Date / Time Performed Performing Clinician [facility] e X-ray of chest, two views 2019-03-20 00:00:00 JESSICAJOHN I [facility] DESTRUCTION OF STOMACH, PYLORUS, ENDO 2019-03-03 00:00:00 GERSON MESSINA [facility] US abdomen complete 2019-03-02 00:00:00 DAYO EDOUARD [facility] TRANSFUSE NONAUT RED BLOOD CELLS IN PERIPH VEIN, PERC 03-01 00:00:00 ABDULLAHI MEYER [facility] EGD LESION ABLATION 2019-02-09 00:00:00 GERSON MESSINA [facility] BLOOD TRANSFUSION SERVICE 2019-01-22 00:00:00 NEIDA CASTAÑEDA [facility] US Abdomen limited 2018-12-01 [facility] [facility] 2018-10-20 00:00:00 HAMIDA STEVENSON [facility] INSPECTION OF UPPER INTESTINAL TRACT, ENDO 2018-10-10 00:00:00 H GERSON EMANUEL [facility] TRANSFUSE NONAUT RED BLOOD CELLS IN PERIPH ART, OPEN 2018-09 00:00:00 GERSON MESSINA [facility] Computed tomography of brain without radiopaque contrast 201 11-05-08 00:00:00 INGRID ZHENG [facility] Encounters Start Date/Time End Date/Time Encounter Type [facility] Encounter ID Source 2019-04-15 09:11:00 2019-04-17 19:59:00 Discharged Inpatient [address] [facility] [id number] [facility] 2019-03-20 13:31:00 2019-03-20 13:31:00 Registered Clinic [address] [facility] [id number] [facility] 2019-03-01 17:07:00 2019-03-04 16:41:00 Discharged Inpatient [address] [facility] [id number] [facility] 2019-02-09 05:55:00 2019-02-09 05:55:00 Registered Surgical Day Care [facility] [id number] [facility] 2019-02-05 19:15:00 2019-02-05 23:01:[address] [facility] [id number] [facility] 2019-01-22 18:21:00 2019-01-23 14:50:00 Discharged Inpatient (obs) [address] [facility] [id number] [facility] 2019-01-12 07:49:00 2019-01-12 07:49:00 Registered Clinic [address] [facility] [id number] [facility] 2018-12-01 10:41:00 2018-12-01 10:41:00 Registered Clinic [address] [facility] [id number] [facility] 2018-10-20 20:50:00 2018-10-21 15:09:00 Discharged Inpatient (obs) [facility] [id number] [facility] 2018-10-06 19:15:00 2018-10-11 19:12:00 Discharged Inpatient [address] [facility] [id number] [facility] 2018-05-11 15:32:00 2018-05-16 11:10:[address] [facility] [id number] [facility] 2018-03-06 17:05:00 2018-03-06 17:05:[address] [facility] [id number] [facility] 2017-07-28 23:06:00 2017-08-02 17:44:00 Discharged Inpatient 1 [facility] [id number] [facility] 2017-03-18 13:21:00 2017-03-18 16:35:[address] [facility] [id number] [facility] 2017-02-02 14:34:00 2017-02-14 19:14:00 Discharged Inpatient ER [facility] [id number] [facility] 2016-12-28 12:38:00 2016-12-29 16:38:00 Discharged Inpatient ER [facility] [id number] [facility] 2016-11-08 23:19:00 2016-11-11 20:15:00 Discharged Inpatient ER [facility] [id number] [facility] 2016-11-02 12:04:00 2016-11-05 17:44:00 Discharged Inpatient (obs) ER [facility] [id number] [facility] 2016-11-02 05:00:00 2016-11-02 05:00:[address] [facility] [id number] [facility] Results Test Description Test Time Test Comments Results Result Comments Source MRI ABDOMEN WOW 2019-07-20 14:12:00 [facility] [address] [address] Patient Name: ALEX STANTON MR #: [id number] : 1950 Age/Sex: 68/F Req #: [id number] [facility] Physician: Ordered by: JOHN LOPEZ MD Report #: [id number] Location: MRI Room/Bed: Procedure: [id number] MRI/MRI ABDOMEN WOW Exam Date: Exam Time: REPORT STATUS: Signed TECHNIQUE: MRI of the abdomen WITHOUT and WITH intravenous contrast. INDICATION: 68-year-old woman with liver mass. COMPARISON: Abdomen ultrasound 03/02/2019. FINDINGS: Suboptimal evaluation secondary to motion artifact and body habitus/ascites. LOWER THORAX: Unremarkable. LIVER: Cirrhotic morphology of the liver. No definite suspicious hepatic lesions. BILIARY: Gallbladder is not clearly visualized and may have been removed. No biliary ductal dilatation or filling defect. SPLEEN: Spleen is prominent and measures 14.5 cm in the anteroposterior dimension. PANCREAS: No focal masses or ductal dilatation. ADRENALS: No adrenal nodules. KIDNEYS/URETERS: No hydronephrosis or solid mass lesions. PERITONEUM/RETROPERITONEUM: Moderate volume ascites. LYMPH NODES: No lymphadenopathy. VESSELS: Portal vein is patent and measures 1.4 cm in diameter. Suspected small recanalized umbilical vein. Abdominal aorta is normal in caliber. GI TRACT: No distention or wall thickening. BONES AND SOFT TISSUES: Degenerative changes of the visualized spine. Mild edema in the soft tissues of the abdomen. IMPRESSION: Suboptimal evaluation secondary to motion artifact and body habitus/ascites. Cirrhosis with portal hypertension and moderate volume ascites. No definite suspicious liver lesion. If there is continued concern for liver mass, then abdomen CT with and without intravenous contrast (liver protocol) may be obtained for further evaluation. Signed by: Tico Thomas MD on 07/20/2019 2:22 PM Dictated By: TICO THOMAS MD [id number] Transcribed By: NIRMALA on 07/20/19 1422 COPY TO: JOHN LOPEZ MD - US ABDOMEN COMPLETE 2019-05-25 13:25:00 Name : ALEX STANTON [facility] : 1950 Age/S: 68 / F [place] Unit #: [id number] Loc: [place] [address] Phys: Virgilio Ram MD Acct: [id number] Dis Date: Status: REG CLI PHONE #: [phone] Exam Date: 05/25/2019 1245 FAX #: [phone] Reason: CIRRHOSIS OF LIVER EXAMS: CPT CODE: [id number] US ABDOMEN COMPLETE [id number] REASON FOR EXAM: CIRRHOSIS OF LIVER EXAM ORDER DATE: 05/25/2019 12:16 PM Attending M.D.: Virgilio Ram MD PROCEDURE: - US ABDOMEN COMPLETE Technique: Grayscale and color Doppler images of the abdomen. Comparison study: CT of the abdomen and pelvis December 08, 2018 FINDINGS: Aorta and IVC: Patent and grossly normal in caliber. Liver: Size: 14.9 cm craniocaudally Parenchyma and contour: Nodular contour with coarsened echotexture Cysts and/or masses: None. Intrahepatic bile ducts: No intrahepatic biliary ductal dilation Common bile duct: 4.1 mm in diameter. No echogenic filling defects in visualized duct. Gallbladder: Surgically absent Portal vein: Portal vein caliber is within normal limits. Portal vein is patent with hepatopetal flow. Pancreas: Incompletely visualized. However the visualized portions are grossly within normal limits. Right kidney: parenchyma echogenicity: Normal echogenicity size: 9.4 x 5.2 x 4.4 cm stones: none cysts/masses: none hydronephrosis: none Left kidney: parenchyma echogenicity: Normal echogenicity size: 9.9 x 5.5 x 4.8 cm stones: none PAGE 1 Signed Report (CONTINUED) Name: ALEX STANTON [facility] : 1950 Age/S: 68 / F [place] Unit #: [id number] Loc: [place] [address] Phys: Virgilio Ram MD Acct: [id number] Dis Date: Status: REG CLI PHONE #: [phone] Exam Date: 05/25/2019 1245 FAX #: [phone] Reason: CIRRHOSIS OF LIVER EXAMS: CPT CODE: [id number] US ABDOMEN COMPLETE 02198 <Continued> cysts/masses: none hydronephrosis: none Spleen: size: 12.2 x 7.0 x 6.6 cm cysts/masses: Parenchyma is sonographically unremarkable. Ascites/pleural effusions: None IMPRESSION: Cirrhotic liver. Splenomegaly. This may be due to portal venous hypertension secondary to patient's cirrhosis. Location: [facility] at 1325 Reported and signed by: Dick Junior MD CC: Virgilio Ram MD; John Lopez Technologist: Montserrat Torres RDMS Trnhib Date/Time: 05/25/2019 (1325) [id number] Orig Print D/T: S: 05/25/2019 (5616) Probe: PAGE 2 Signed Report SMALL BOWEL SERIES 2019-04-17 16:07:[address] [address] Patient Name: ALEX STANTON MR #: [id number] : 1950 Age/Sex: 68/F Req #: [id number] [facility] Physician: JOHN LOPEZ MD Ordered by: GERSON MESSINA MD Report #: [id number] Location: MED/SURG Room/Bed: [facility] Procedure: [id number] DX/SMALL BOWEL SERIES Exam Date: 04/17/19 Exam Time: 1535 REPORT STATUS: Signed FLUOROSCOPIC SMALL BOWEL SERIES COGNOS ADMINISTRATOR(S): Mayra Viramontes MD Indication: Anemia Comparison: None. Radiation Dose: Total dose: 11.7 mGy Total fluoroscopy time: 0.6 minutes Procedure: Small bowel follow through exam was performed using oral barium. Preliminary image was obtained before administration of contrast and serial overhead images were obtained after administration of oral barium. Fluoroscopy was performed and spot images were obtained. DISCUSSION: SMALL BOWEL: Bulb and sweep are normal. Duodenal-jejunal junction is in the normal expected position. Small bowel loops are normal in caliber and distribution. There is no evidence of fistula, mucosal changes, stricture or dilation. The transit time was within normal limits. COLON: Diverticulosis of the sigmoid colon. Partially visualized proximal colon is unremarkable. IMPRESSION: Unremarkable fluoroscopic small bowel series. Sigmoid diverticulosis. Signed by: Mayra Viramontes MD on 04/17/2019 4:09 PM Dictated By: MAYRA VIRAMONTES MD 08 Transcribed By: NIRMALA on 04/17/191608 COPY TO: GERSON MESSINA MD Bedside Glucose 2019-04-17 08:28:00 Test Item Bedside Glucose (test code = 40315-1) 152 70-120 Meter ID: [id number] [facility] PEFEN0414-15-83 15:12:00 [place] [address] Patient Name: ALEX STANTON MR #: [id number] : 1950 Age/Sex: 68/F Req #: [id number] Adm Physician: JOHN LOPEZ MD Ordered by: GERSON MESSINA MD Report #: [id number] Location: MED/SURG Room/Bed: [facility] Procedure: [id number] NM/G I BLEED Exam Date: 04/16/19 Exam Time: 1100 REPORT STATUS: Signed Tagged-RBC GI Bleed Study Clinical information: 68-year-old male with anemia.. Disc ussion: The patient's own red blood cells were labeled with 27.5 mCi of techne tium-99m pertechnetate using the in vitro method (UltraTag). Dynamic images o f the abdomen were obtained through 60 minutes. Distribution of tracer acti vity appears physiologic throughout the abdomen. No abnormal accumulation of tracer is seen within the gastrointestinal lumen. Impression: No scan evidence of active gastrointestinal bleeding at this time. Signed by: Dr. Ellen Long M.D. on 04/16/2019 3:13 PM Dictated By: ELLEN LONG MD Carmen ctronically Signed By: ELLEN LONG MD on 04/16/191512 Transcribed By: NIRMALA on 04/16/191512 COPY TO: GERSON MESSINA MD White Blood Count 2019-04-16 10:46:00* Test Item Value Reference Range Interpretation Comments White Blood Count (test code = 6690-2) 3.72 4.8-10.8 [facility] Blood Ovciv0343-86-43 10:46:00* Test Item Value Reference Range Interpretation Comments Red Blood Count (test code = 789-8) 2.82 3.6-5.1 [facility]cosHemoglobin2020-02-17 10:46:00* Test Item Value Reference Range Interpretation Comments Hemoglobin (test code = 02329-7) 7.6 12.0-16.0 [facility]cosHematocrit2020-02-17 10:46:00* Test Item Value Reference Range Interpretation Comments Hematocrit (test code = 4544-3) 25.0 34.2-44.1 [facility] MarcosMean Corpuscular Xvfszp8619-31-49 10:46:00* Test Item Value Reference Range Interpretation Comments Mean Corpuscular Volume (test code = 787-2) 88.7 81-99 [facility]cosMean Corpuscular Vttckzqvdp2759-26-74 10:46:00* Test Item Value Reference Range Interpretation Comments Mean Corpuscular Hemoglobin (test code = 785-6) 27.0 28-32 [facility]cosMean Corpuscular Hemoglobin Concent 2019-04-16 10:46:00* Test Item Value Reference Range Interpretation Comments Mean Corpuscular Hemoglobin Concent (test code = 786-4) 30.4 31-35 [facility]cosRed Cell Distribution Gacku4754-06-74 10:46:00* Test Item Value Reference Range Interpretation Comments Red Cell Distribution Width (test code = 11875-8) 18.1 11.7 -14.4 [facility]cosPlatelet Qzdtf8288-46-14 10:46:00* Test Item Value Reference Range Interpretation Comments Platelet Count (test code = 777-3) 61 140-360 [facility]cosNeutrophils (%) (Auto)2019-04-16 10:46:00 * Test Item Value Reference Range Interpretation Comments Neutrophils (%) (Auto) (test code = 96583-4) 60.0 38.7-80.0 [facility]cosLymphocytes (%) (Auto)2019-04-16 10:46:00 * Test Item Value Reference Range Interpretation Comments Lymphocytes (%) (Auto) (test code = 736-9) 16.9 18.0-39.1 [facility]cosMonocytes (%) (Auto)2019-04-16 10:46:00* Test Item Value Reference Range Interpretation Comments Monocytes (%) (Auto) (test code = 5905-5) 9.9 4.4-11.3 [facility]cosEosinophils (%) (Auto)2019-04-16 10:46:00 * Test Item Value Reference Range Interpretation Comments Eosinophils (%) (Auto) (test code = 713-8) 12.4 0.0-6.0 [facility]cosBasophils (%) (Auto)2019-04-16 10:46:00* Test Item Value Reference Range Interpretation Comments Basophils (%) (Auto) (test code = 706-2) 0.5 0.0-1.0 [facility] MarcosIM GRANULOCYTES %2019-04-16 10:46:00* Test Item Value Reference Range Interpretation Comments IM GRANULOCYTES % (test code = IM GRANULOCYTES %) 0.3 0.0- 1.0 [facility]cosNeutrophils # (Auto)2019-04-16 10:46:00* Test Item Value Reference Range Interpretation Comments Neutrophils # (Auto) (test code = 751-8) 2.2 2.1-6.9 [facility]cosLymphocytes # (Auto)2019-04-16 10:46:00* Test Item Value Reference Range Interpretation Comments Lymphocytes # (Auto) (test code = 56960-7) 0.6 1.0-3.2 [facility]cosMonocytes # (Auto)2019-04-16 10:46:00* Test Item Value Reference Range Interpretation Comments Monocytes # (Auto) (test code = 742-7) 0.4 0.2-0.8 [facility]cosEosinophils # (Auto)2019-04-16 10:46:00* Test Item Value Reference Range Interpretation Comments Eosinophils # (Auto) (test code = 711-2) 0.5 0.0-0.4 [facility]cosBasophils # (Auto)2019-04-16 10:46:00* Test Item Value Reference Range Interpretation Comments Basophils # (Auto) (test code = 704-7) 0.0 0.0-0.1 [facility] MarcosAbsolute Immature Granulocyte (auto 2019-04-16 10:46:00* Test Item Value Reference Range Interpretation Comments Absolute Immature Granulocyte (auto (natalya t code = Absolute Immature Granulocyte (auto) 0.01 0-0.1 [facility] Hospitalodium Qsuzp4935-34-16 07:01:00* Test Item Value Reference Range Interpretation Comments Sodium Level (test code = 2951-2) 138 136-145 [facility]cosPotassium Uzcgn2204-53-30 07:01:00* Test Item Value Reference Range Interpretation Comments Potassium Level (test code = 2823-3) 3.9 3.5-5.1 [facility]cosChloride Eihvf0365-81-61 07:01:00* Test Item Value Reference Range Interpretation Comments Chloride Level (test code = 2075-0) 104 98-107 [facility] MarcosCarbon Dioxide Lsmzm9497-08-83 07:01:00* Test Item Value Reference Range Interpretation Comments Carbon Dioxide Level (test code = 2028-9) 27 22-29 [facility] MarcosAnion Rke3860-85-15 07:01:00* Test Item Value Reference Range Interpretation Comments Anion Gap (test code = 55667-4) 10.9 8-16 [facility] MarcosBlood Urea Mefvowgw7745-31-28 07:01:00* Test Item Value Reference Range Interpretation Comments Blood Urea Nitrogen (test code = 3094-0) 12 7-26 [facility] MarcosCreatinine2020-02-17 07:01:00* Test Item Value Reference Range Interpretation Comments Creatinine (test code = 2160-0) 0.78 0.57-1.11 [facility] MarcosBUN/Creatinine Ggwvn5612-28-95 07:01:00* Test Item Value Reference Range Interpretation Comments BUN/Creatinine Ratio (test code = 3097-3) 15 6-25 [facility] MarcosEstimat Glomerular Filtration Rate 2019-04-16 07:01:00* Test Item Value Reference Range Interpretation Comments Estimat Glomerular Filtration Rate (test code = 440345458) > 60 >60 Ranges were taken from the National Kidney Disease Education Program and the [facility] Kid[facility] Foundation literature.Reference ranges:60 or greater: Djynoi12-91 ( for 3 consecutive months): Chronic kidney disease 15 or less: Kidney failureChristus Santa Rosa Hospital – San MarcosGlucose Vewxc0331-52-23 07:01:00* Test Item Value Reference Range Interpretation Comments Glucose Level (test code = CJE0483) 143 74-118 [facility] MarcosCalcium Iirrd5160-27-20 07:01:00* Test Item Value Reference Range Interpretation Comments Calcium Level (test code = 25136-2) 7.9 8.4-10.2 [facility] MarcosTotal Zcbonzxlb9534-55-60 07:01:00* Test Item Value Reference Range Interpretation Comments Total Bilirubin (test code = 1975-2) 1.7 0.2-1.2 [facility] MarcosAspartate Amino Transf (AST/SGOT) 2019-04-16 07:01:00* Test Item Value Reference Range Interpretation Comments Aspartate Amino Transf (AST/SGOT) (test code = Aspartate Amino Transf (AST/SGOT)) 27 5-34 [facility] MarcosAlanine Aminotransferase (ALT/SGPT) 2019-04-16 07:01:00* Test Item Value Reference Range Interpretation Comments Alanine Aminotransferase (ALT/SGPT) (test code = 1742-6) 17 0-55 [facility] MarcosTotal Pweuyws4557-17-34 07:01:00* Test Item Value Reference Range Interpretation Comments Total Protein (test code = 2885-2) 5.6 6.5-8.1 [facility] MarcosAlbumin2020-02-17 07:01:00* Test Item Value Reference Range Interpretation Comments Albumin (test code = 1751-7) 2.4 3.5-5.0 [facility] MarcosGlobulin2020-02-17 07:01:00* Test Item Value Reference Range Interpretation Comments Globulin (test code = 58403-3) 3.2 2.3-3.5 [facility] MarcosAlbumin/Globulin Fgjnh0077-66-77 07:01:00 * Test Item Value Reference Range Interpretation Comments Albumin/Globulin Ratio (test code = 1759-0) 0.8 0.8-2.0 [facility] MarcosAlkaline Nghdlhcxamf5389-47-97 07:01:00* Test Item Value Reference Range Interpretation Comments Alkaline Phosphatase (test code = 6768-6) 148 40-150 [facility] MarcosAmmonia2020-02-17 06:49:00* Test Item Value Reference Range Interpretation Comments Ammonia (test code = 08681-0) 96 31-123 [facility] MarcosVitamin B12 Ncvab0290-08-80 10:15:00* Test Item Value Reference Range Interpretation Comments Vitamin B12 Level (test code = 72251-1) 1143 213-816 [facility] MarcosFolate2020-02-16 10:15:00* Test Item Value Reference Range Interpretation Comments Folate (test code = 2284-8) 11.7 7.0-15.4 [facility] MarcosFerritin2020-02-16 10:02:00* Test Item Value Reference Range Interpretation Comments Ferritin (test code = 2276-4) 12.18 4.63-204.00 [facility] MarcosIron Vblnx4029-28-69 09:39:00* Test Item Value Reference Range Interpretation Comments Iron Level (test code = 2498-4) 61 50-170 [facility] MarcosTotal Iron Binding Sozltozw1479-40-03 09:39:00* Test Item Value Reference Range Interpretation Comments Total Iron Binding Capacity (test code = 2500-7) 489 261-4 78 [facility] MarcosPercent Iron Qocupzlmlz1035-02-64 09:39:00* Test Item Value Reference Range Interpretation Comments Percent Iron Saturation (test code = 2502-3) 12 15-50 [facility] MarcosTransferrin2020-02-16 09:39:00* Test Item Value Reference Range Interpretation Comments Transferrin (test code = 3034-6) 349 180-382 [facility] MarcosCHEST SINGLE (PORTABLE)2019-04-15 09:34:00 [facility] [address] [place] [address] Patient Name: ALEX STANTON MR #: [id number] : 1950 Age/Sex: 68/F Req #: [id number] Adm Physician: JOHN LOPEZ MD Ordered by: GLORIA CALIX MD Report #: [id number] Location: [facility] Room/Bed: [place] [address] Procedure: [id number] D X/CHEST SINGLE (PORTABLE) Exam Date: 04/15/19 Exam T unique: 0845 REPORT STATUS: Signed EXAMINATION: CHEST SINGLE (PORTABLE) INDICATION: Pneumonia COMPAR JUAQUIN: Chest radiograph dated 03/20/2019. FINDINGS: LINES/TUBES: None LUNGS:The lungs are hypoinflated.. No focal consolidation or davion pul monary edema. Mild elevation of the right hemidiaphragm. PLEURA:No pleura l effusion or pneumothorax. MEDIASTINUM:The cardiomediastinal silhouette ap pears unchanged in size and shape. Atherosclerotic calcifications of the thora cic aorta. BONES/SOFT TISSUES:No acute osseous injury. ABDOMEN:No free air under the diaphragm. IMPRESSION: Bilateral hypoinflation. S igned by: Dr. Ramona Manley M.D. on 04/15/2019 9:35 AM Dictated By : CHRIS MANLEY MD, MD 4 COPY TO: GLORIA CALIX MD Platelet Zvdaufin6543-87-69 09:31:00* Test Item Value Reference Range Interpretation Comments Platelet Estimate (test code = 80115-5) MARKEDLY DECREASED [facility] MarcosPlatelet Morphology Ivwipan8687-38-02 09:31:00* Test Item Value Reference Range Interpretation Comments Platelet Morphology Comment (test code = 33950-7) NO EDTA PLT CLUMP S [facility] San MarcosPercent Reticulocyte Uywgj6904-09-38 09:28:00* Test Item Value Reference Range Interpretation Comments Percent Reticulocyte Count (test code = 49718-0) 5.0 0.8-2 .2 [facility] MarcosCreatine Kinase AW4527-00-45 06:08:00* Test Item Value Reference Range Interpretation Comments Creatine Kinase MB (test code = 77871-6) 1.50 0-5.0 [facility] MarcosTroponin N1279-71-48 06:08:00* Test Item Value Reference Range Interpretation Comments Troponin I (test code = WSY8721) < 0.001 0-0.300 [facility] MarcosUrine Hivkt7199-46-72 02:48:00* Test Item Value Reference Range Interpretation Comments Urine Color (test code = 5778-6) YELLOW YELLOW [facility] San MarcosUrine Yundfed7865-38-84 02:48:00* Test Item Value Reference Range Interpretation Comments Urine Clarity (test code = 15290-4) CLEAR CLEAR [facility] MarcosUrine Specific Yfdcgjj4202-81-16 02:48:00 * Test Item Value Reference Range Interpretation Comments Urine Specific [place] (test code = 5811-5) 1.025 1.010-1.02 5 [facility] MarcosUrine rN9241-17-80 02:48:00* Test Item Value Reference Range Interpretation Comments Urine pH (test code = 99851-9) 6 5-7 [facility] Leukocyte Zdoawuio7513-83-35 02:48:00* Test Item Value Reference Range Interpretation Comments Urine Leukocyte Esterase (test code = 5799-2) NEGATIVE NEGATIVE [facility] MarcosUrine Zhukrec8223-01-01 02:48:00* Test Item Value Reference Range Interpretation Comments Urine Nitrite (test code = 44610-7) NEGATIVE NEGATIVE [facility] MarcosUrine Icmudev6434-58-20 02:48:00* Test Item Value Reference Range Interpretation Comments Urine Protein (test code = 5804-0) NEGATIVE NEGATIVE [facility] MarcosUrine Glucose (UA)2019-04-15 02:48:00* Test Item Value Reference Range Interpretation Comments Urine Glucose (UA) (test code = 2349-9) 3+ NEGATIVE [facility] MarcosUrine Bzebaye5763-68-62 02:48:00* Test Item Value Reference Range Interpretation Comments Urine Ketones (test code = 36756-3) NEGATIVE NEGATIVE [facility] MarcosUrine Ffgroqbvzuqg4127-20-69 02:48:00* Test Item Value Reference Range Interpretation Comments Urine Urobilinogen (test code = 43651-6) 0.2 0.2-1 [facility] MarcosUrine Ujrzslacq7382-79-45 02:48:00* Test Item Value Reference Range Interpretation Comments Urine Bilirubin (test code = 1978-6) NEGATIVE NEGATIVE [facility] MarcosUrine Ymqcq7912-32-42 02:48:00* Test Item Value Reference Range Interpretation Comments Urine Blood (test code = 58804-3) TRACE NEGATIVE [facility] MarcosUrine FEZ7565-00-64 02:48:00* Test Item Value Reference Range Interpretation Comments Urine WBC (test code = 5821-4) 0-5 0-5 [facility] MarcosUrine TXE6446-30-11 02:48:00* Test Item Value Reference Range Interpretation Comments Urine RBC (test code = 40486-7) 6-10 0-5 [facility] MarcosUrine Arigarkk2387-94-66 02:48:00* Test Item Value Reference Range Interpretation Comments Urine Bacteria (test code = 60034-4) FEW NONE [facility] MarcosUrine Epithelial Ubmip3323-94-03 02:48:00 * Test Item Value Reference Range Interpretation Comments Urine Epithelial Cells (test code = 57476-5) FEW NONE [facility] MarcosB-Type Natriuretic Bmdegdg4610-22-17 02:08:00* Test Item Value Reference Range Interpretation Comments B-Type Natriuretic Peptide (test code = 10171-3) < 10.0 0-100 [facility] MarcosArterial Blood uO9179-88-38 02:06:00* Test Item Value Reference Range Interpretation Comments Arterial Blood pH (test code = 2744-1) 7.38 7.31-7.41 [facility] MarcosArterial Blood Partial Pressure CO2 2019-04-15 02:06:00* Test Item Value Reference Range Interpretation Comments Arterial Blood Partial Pressure CO2 (test code = 2018-8) 50 41-51 [facility] MarcosArterial Blood Partial Pressure O2 2019-04-15 02:06:00* Test Item Value Reference Range Interpretation Comments Arterial Blood Partial Pressure O2 (test code = 2018-8) 66 80-105 [facility] MarcosArterial Blood HJR62259-93-49 02:06:00* Test Item Value Reference Range Interpretation Comments Arterial Blood HCO3 (test code = 1960-4) 30 23-28 [facility] MarcosArterial Blood Base Jgactn7071-16-38 02:06:00* Test Item Value Reference Range Interpretation Comments Arterial Blood Base Excess (test code = 1925-7) 4.0 -2-3 [facility] MarcosArterial Blood Oxygen Saturation 2019-04-15 02:06:00* Test Item Value Reference Range Interpretation Comments Arterial Blood Oxygen Saturation (test code = 2708-6) 92.0 95-98 [facility] MarcosFiO22020-02-16 02:06:00* Test Item Value Reference Range Interpretation Comments FiO2 (test code = FiO2) 21 Pt was on room air when ABG was drawnChristus Santa Rosa Hospital – San Marcos Creatine Ejokev9542-09-22 01:44:00* Test Item Value Reference Range Interpretation Comments Creatine Kinase (test code = 2157-6) 44 29-168 [facility] MarcosCHEST 2 FRGJS8271-18-91 14:17:00 [facility] [address] [place] [address] Patient Name: ALEX STANTON MR #: [id number] : 1950 Age/Sex: 68/F Req #: [id number] Adm Physician: Ordered by: JOHN LOPEZ MD Report #: [id number] Location: [facility] Room/Bed: Procedure: [id number] DX /CHEST 2 VIEWS Exam Date: 03/20/19 Exam Time: 1357 REPORT STATUS: Signed EXAMINATION: CHEST 2 VIEWS INDICATION: Pneumonia COMPARISON: Chest are graft 01/22/2019 FINDINGS: The patient is right rotated. LINES/TU BES:None LUNGS:The lungs are moderately inflated. No focal consolidation or davion pulmonary edema. PLEURA:No pleural effusion or pneumothorax. MEDIASTINUM:The cardiomediastinal silhouette appears unchanged in size and sha pe. Atherosclerotic calcifications of the thoracic aorta. BONES/SOFT TISSUE S:No acute osseous injury. ABDOMEN:No free air under the diaphragm. IMPRESSION: No focal pneumonia or pulmonary edema. Unchanged mild cardi omegaly and central pulmonary venous congestion. Signed by: Mayra Viramontes MD on 03/20/2019 2:19 PM Dictated By: MAYRA VIRAMONTES MD 18 Transcribed By: NIRMALA on 03/20/191418 COPY TO: JOHN LOPEZ MD Hedrvwemgsf4436-12-76 23:21:00* Test Item Value Reference Range Interpretation Comments Haptoglobin (test code = 4542-7) <10 37-355 Please note reference interval changePerformed at: [facility] [address] [id number] Director: Kamaljit dugan MD, Phone: [phone] Santa Rosa Hospital – San MarcosAnti- Mitochondrial Bjhdjaoj8442-54-06 23:21:00* Test Item Value Reference Range Interpretation Comments Anti-Mitochondrial Antibody (test code = 69582-0) <20.0 0.0- 20.0 Negative 0.0 - 20.0 Equivocal 20.1 - 24.9 Positive > 24.9Mitochondrial (M2) Antibodies are found in 90-96% ofpatients with primary bi liary cirrhosis.Performed at: [facility] [address] [id number] Director: Kamaljit Wagner MD, Phone: [phone] Santa Rosa Hospital – San MarcosFolate2020-01-05 01:59:00* Test Item Value Reference Range Interpretation Comments Folate (test code = 2284-8) 7.0 >3.0 A serum folate concentration of less than 3.1 ng/mL isconsidered to represent cl inical deficiency.Performed at: - [address] [id number] Director: Lawson Jalloh MD, Phone: [phone] Heart & Surgical Hospitaltool Occult Fqokc6377-43-48 12:47:00* Test Item Value Reference Range Interpretation Comments Stool Occult Blood (test code = 2335-8) POSITIVE NEGATIVE [facility]EN ZDCKLRRZ7304-37-85 17:55:00 [facility] [address] [address] Patient Name: ALEX STANTON MR #: [id number] : 1950 Age/Sex: 68/F Req #: [id number] Adm Physician: ABDULLAHI MEYER MD Ordered by: DAYO EDOUARD Report #: [id number] Location: MED/SURG Room/Bed: [facility] Procedure: [id number] US/US ABDOMEN COMPLETE Exam Date: 03/02/19 Exam Patricio e: 1636 REPORT STATUS: Signed EX AM: US ABDOMEN COMPLETE DATE: 03/02/2019 12:00 AM INDICATION: Cirrhosis COMPARISON: Abdominal ultrasound 12/01/2018 TECHNIQUE: Transverse and longitud inal monahan scale and color doppler sonographic images of the upper abdomen were obtained. FINDINGS: LIVER 14.2 cm in the right midclavicular line. Coarse echotexture of the liver with nodular surface contour, no masses. SPLEEN 14.3 cm in maximum diameter. Normal echogenicity, no masses. GALLBLADDER Status post cholecystectomy. BILE DUCTS No intra nor ex tra-hepatic biliary dilation. Common bile duct measures 4mm PANCREAS: Vis ualized portions are normal. RIGHT KIDNEY: 9.9 cm Echogenicity: Normal Collecting System: No hydronephrosis Stones: None Cyst/Mass: None LEF T KIDNEY: 9.2 cm Echogenicity: Normal Collecting System: No hydronephrosis Stones: None Cyst/Mass: None VESSELS: Aorta: Visualized portions are within normal size limits Inferior Vena Cava: Visualized portions are normal Main Portal Vein: 1.2 cm, normal size with hepatopetal flow. FREE FLUID: Trace ascites. IMPRESSION: Coarse echotexture and nodular liver surface c ontour consistent with cirrhosis. Mild splenomegaly. Trace ascites. Signed by: Mayra Viramontes MD on 03/02/2019 5:57 PM Dictated By: MAYRA VIRAMONTES MD 56 Transcribed By: JOHN AZAR on 03/02/191756 COPY TO: DAYO EDOUARD Prothrombin Yifv9258-02-26 17:24:00* Test Item Value Reference Range Interpretation Comments Prothrombin Time (test code = 5902-2) 14.6 11.9-14.5 [facility] MarcosProthromb Time International Ratio 2019-03-02 17:24:00* Test Item Value Reference Range Interpretation Comments Prothromb Time International Ratio (test code = 6301-6) 1.09 Oral Anticoagulant Therapy INR Values:1. Low Intensity Therapy 1.5 - 2.02 . Moderate Intensity Therapy 2.0 - 3.03. High Intensity Therapy(1) 2.5 - 3. 54. High Intensity Therapy(2) 3.0 - 4.05. Panic Value INR > 5.0 [facility] MarcosLactate Mousaupoqxybm0648-11-14 11:41:00 * Test Item Value Reference Range Interpretation Comments Lactate Dehydrogenase (test code = 857067755) 191 125-220 [facility] San MarcosActivated Partial Thromboplast Time 2019-02-08 13:28:00* Test Item Value Reference Range Interpretation Comments Activated Partial Thromboplast Time (test code = 64555-7) 30.0 23.8-35.5 [facility] MarcosCHEST SINGLE (PORTABLE)2019-01-22 17:28:00 [place] [address] Patient Name: ALEX STANTON MR #: [id number] : 1950 Age/Sex: 68/F Req #: [id number] Adm Physician: Ordered by: NEIDA CASTAÑEDA MD Report #: [id number] Location: ER Room/Bed: Procedure: [id number] DX/CHEST SINGLE (PORTABLE) Exam Date: 01/22/19 Exam Time: 1703 REPORT STATUS: Signed EXAMINATION: CHEST SINGLE (PORTABLE) INDICATION: Anemia COMPARIS ON: Chest radiograph 10/06/2018 FINDINGS: LINES/TUBES:EKG leads ove rlie the chest. LUNGS:The lung volumes are low. No focal consolidation. Ned tral pulmonary vascular congestion without davion pulmonary edema. PLEURA: No pleural effusion or pneumothorax. MEDIASTINUM:Cardiomediastinal silhouet te is stably enlarged. BONES/SOFT TISSUES:No acute osseous injury. ABD OMEN:No free air under the diaphragm. IMPRESSION: Low lung volumes. N o focal pneumonia or davion pulmonary edema. Unchanged cardiomegaly and cent ral pulmonary vascular congestion. Signed by: Mayra Viramontes MD on 01/22/2019 5:29 PM Dictated By: MAYRA VIRAMONTES MD 28 Transcribed By: NIRMALA on 01/22/191728 COPY TO: NEIDA FLORES MD Amylase [id number] 17:24:00* Test Item Value Reference Range Interpretation Comments Amylase Level (test code = 1798-8) 63 25-125 [facility] 17:24[facility]* Test Item Value Reference Range Interpretation Comments Lipase (test code = 3040-3) 27 8-78 [facility] [id number] 14:26:00 [facility] [address] [address] Patient Name : ALEX STANTON MR #: [id number] : 1950 Age/Sex: 68/F Adm Physician : LUKASZ OWUSU MD Admit Date : 01/12/19 Location : OK Room/Bed : REPORT: Myoview Stress Te st DATE OF STUDY: 01/12/2019 07:59:00 Stress Test - Treadmill ONLY REPORT TITLE: Cardiology Nuclear Stress Test BODY AFTER REPORT TITLE: STRESS SUMMARY: The patient underwent pharmacologic stress test under the usual Lexiscan protocol. Baseline heart rate was 78 beats per minute and bety to a maximum of 90 beats per minute. Blood pressure was 101/63 at rest and bety to 105/65 during stress. The patient elicited no cardiac symptoms thro ughout the stress protocol. ELECTROCARDIOGRAPHIC STRESS SUMMARY: The pat ient's baseline 12-lead electrocardiogram showed normal sinus rhythm with nons pecific ST-T wave abnormalities. There are no ST changes or arrhythmias noted throughout the stress protocol. MYOCARDIAL PERFUSION IMAGING: The patie nt received technetium-99m tetrofosmin with 11 millicuries at rest and 33 mill icuries at stress. Myocardial perfusion images revealed a small mild inferior defect that improved with stress compared with rest. Gated images revealed a normal left ventricular ejection fraction estimated at 66%. CONCLUSIONS: 1. Normal clinical, electrocardiographic, and hemodynamic Lexiscan stress t est. 2. Normal myocardial perfusion imaging showing a small mild inferior atte nuation artifact. 3. Left ventricular ejection fraction of 66%. DO DULCE MARIA Orourke/LUPIS D: 14:26:54 /[id number] Signature Date Dictated By: RASHEL COREY DO Transcribed By: LUPIS on 01/12/19 <Electronically signed by RASHEL COREY DO><<Signature on File>> 01/18/191943 COPY TO: [id number] 12:02:00* Test Item Value Reference Range Interpretation Comments GLUBED (test code = GLUBED) 134 mg/dL 74-106 H Performed by certified collar turner operator at [facility] CBC W/AUTO [id number] 08:24:00* Test Item Value Reference Range Interpretation Comments WHITE BLOOD CELL (test code = WBC) 3.1 K/mm3 4.5-12.5 L RED BLOOD CELL (test code = RBC) 2.66 mill/mm3 3.7-5.2 L HEMOGLOBIN (test code = HGB) 7.9 gram/dL 11.5-15.5 L HEMATOCRIT (test code = HCT) 26.3 % 36.0-46.0 L MEAN CELL VOLUME (test code = MCV) 98.9 fL 80-98 H MEAN CELL HGB (test code = MCH) 29.7 picogram 27.0-33.0 N MEAN CELL HGB CONCETRATION (test code = MCHC) 30.0 gram/dL 33.0-36. 0 L RED CELL DISTRIBUTION WIDTH (test code = RDW) 21.5 % 11.6-16. 2 H RED CELL DISTRIBUTION WIDTH SD (test code = RDW-SD) 74.4 fL 37 .0-51.0 H PLATELET COUNT (test code = PLT) 78 K/mm3 150-450 L MEAN PLATELET VOLUME (test code = MPV) 11.2 fL 6.7-11.0 H NEUTROPHIL % (test code = NT%) 50.4 % 39.0-69.0 N IMMATURE GRANULOCYTE % (test code = IG%) 0.3 % 0.0-5.0 N LYMPHOCYTE % (test code = LY%) 23.7 % 25.0-55.0 L MONOCYTE % (test code = MO%) 13.3 % 0.0-10.0 H EOSINOPHIL % (test code = EO%) 11.7 % 0.0-5.0 H BASOPHIL % (test code = BA%) 0.6 % 0.0-1.0 N NUCLEATED RBC % (test code = NRBC%) 0.0 % 0-0 N NEUTROPHIL # (test code = NT#) 1.55 K/mm3 1.8-7.7 L IMMATURE GRANULOCYTE # (test code = IG#) 0.01 x10 3/uL 0-0.03 N LYMPHOCYTE # (test code = LY#) 0.73 K/mm3 1.0-5.0 L MONOCYTE # (test code = MO#) 0.41 K/mm3 0-0.8 N EOSINOPHIL # (test code = EO#) 0.36 K/mm3 0.0-0.5 N BASOPHIL # (test code = BA#) 0.02 K/mm3 0.0-0.2 N NUCLEATED RBC # (test code = NRBC#) 0.00 K/mm3 0.0-0.1 N MANUAL DIFF REQUIRED (test code = MDIFF) NO, ONLY SCAN NEEDED DIFFERENTIAL [id number] 08:24:00* Test Item Value Reference Range Interpretation Comments STAIN ACCEPTABILITY (test code = STN ACCEPTABLE) STAIN ACCEPTABLE ANISOCYTOSIS (test code = ANISO) 1+ MACROCYTOSIS (test code = MACR) 1+ PLATELET ESTIMATE (test code = PLTEST) DECREASED PLATELET MORPHOLOGY (test code = PLTMORPH) NORMAL CBC W/AUTO [id number] 07:55:00* Test Item Value Reference Range Interpretation Comments WHITE BLOOD CELL (test code = WBC) 3.1 K/mm3 4.5-12.5 L RED BLOOD CELL (test code = RBC) 2.66 mill/mm3 3.7-5.2 L HEMOGLOBIN (test code = HGB) 7.9 gram/dL 11.5-15.5 L HEMATOCRIT (test code = HCT) 26.3 % 36.0-46.0 L MEAN CELL VOLUME (test code = MCV) 98.9 fL 80-98 H MEAN CELL HGB (test code = MCH) 29.7 picogram 27.0-33.0 N MEAN CELL HGB CONCETRATION (test code = MCHC) 30.0 gram/dL 33.0-36. 0 L RED CELL DISTRIBUTION WIDTH (test code = RDW) 21.5 % 11.6-16. 2 H RED CELL DISTRIBUTION WIDTH SD (test code = RDW-SD) 74.4 fL 37 .0-51.0 H PLATELET COUNT (test code = PLT) 78 K/mm3 150-450 L MEAN PLATELET VOLUME (test code = MPV) 11.2 fL 6.7-11.0 H NEUTROPHIL % (test code = NT%) 50.4 % 39.0-69.0 N IMMATURE GRANULOCYTE % (test code = IG%) 0.3 % 0.0-5.0 N LYMPHOCYTE % (test code = LY%) 23.7 % 25.0-55.0 L MONOCYTE % (test code = MO%) 13.3 % 0.0-10.0 H EOSINOPHIL % (test code = EO%) 11.7 % 0.0-5.0 H BASOPHIL % (test code = BA%) 0.6 % 0.0-1.0 N NUCLEATED RBC % (test code = NRBC%) 0.0 % 0-0 N NEUTROPHIL # (test code = NT#) 1.55 K/mm3 1.8-7.7 L IMMATURE GRANULOCYTE # (test code = IG#) 0.01 x10 3/uL 0-0.03 N LYMPHOCYTE # (test code = LY#) 0.73 K/mm3 1.0-5.0 L MONOCYTE # (test code = MO#) 0.41 K/mm3 0-0.8 N EOSINOPHIL # (test code = EO#) 0.36 K/mm3 0.0-0.5 N BASOPHIL # (test code = BA#) 0.02 K/mm3 0.0-0.2 N NUCLEATED RBC # (test code = NRBC#) 0.00 K/mm3 0.0-0.1 N MANUAL DIFF REQUIRED (test code = MDIFF) NO, ONLY SCAN NEEDED DIFFERENTIAL [id number] 07:55:00* Test Item Value Reference Range Interpretation Comments STAIN ACCEPTABILITY (test code = STN ACCEPTABLE) MORPHOLOGY COMMENT (test code = MOC) PLATELET ESTIMATE (test code = PLTEST) PLATELET MORPHOLOGY (test code = PLTMORPH) CBC W/AUTO [id number] 07:53:00* Test Item Value Reference Range Interpretation Comments WHITE BLOOD CELL (test code = WBC) 3.1 K/mm3 4.5-12.5 L RED BLOOD CELL (test code = RBC) 2.66 mill/mm3 3.7-5.2 L HEMOGLOBIN (test code = HGB) 7.9 gram/dL 11.5-15.5 L HEMATOCRIT (test code = HCT) 26.3 % 36.0-46.0 L MEAN CELL VOLUME (test code = MCV) 98.9 fL 80-98 H MEAN CELL HGB (test code = MCH) 29.7 picogram 27.0-33.0 N MEAN CELL HGB CONCETRATION (test code = MCHC) 30.0 gram/dL 33.0-36. 0 L RED CELL DISTRIBUTION WIDTH (test code = RDW) 21.5 % 11.6-16. 2 H RED CELL DISTRIBUTION WIDTH SD (test code = RDW-SD) 74.4 fL 37 .0-51.0 H PLATELET COUNT (test code = PLT) 78 K/mm3 150-450 L MEAN PLATELET VOLUME (test code = MPV) 11.2 fL 6.7-11.0 H NEUTROPHIL % (test code = NT%) 50.4 % 39.0-69.0 N IMMATURE GRANULOCYTE % (test code = IG%) 0.3 % 0.0-5.0 N LYMPHOCYTE % (test code = LY%) 23.7 % 25.0-55.0 L MONOCYTE % (test code = MO%) 13.3 % 0.0-10.0 H EOSINOPHIL % (test code = EO%) 11.7 % 0.0-5.0 H BASOPHIL % (test code = BA%) 0.6 % 0.0-1.0 N NUCLEATED RBC % (test code = NRBC%) 0.0 % 0-0 N NEUTROPHIL # (test code = NT#) 1.55 K/mm3 1.8-7.7 L IMMATURE GRANULOCYTE # (test code = IG#) 0.01 x10 3/uL 0-0.03 N LYMPHOCYTE # (test code = LY#) 0.73 K/mm3 1.0-5.0 L MONOCYTE # (test code = MO#) 0.41 K/mm3 0-0.8 N EOSINOPHIL # (test code = EO#) 0.36 K/mm3 0.0-0.5 N BASOPHIL # (test code = BA#) 0.02 K/mm3 0.0-0.2 N NUCLEATED RBC # (test code = NRBC#) 0.00 K/mm3 0.0-0.1 N MANUAL DIFF REQUIRED (test code = MDIFF) NO, ONLY SCAN NEEDED DIFFERENTIAL [id number] 07:53:00* Test Item Value Reference Range Interpretation Comments STAIN ACCEPTABILITY (test code = STN ACCEPTABLE) CABOT RINGS (test code = CAB) MORPHOLOGY COMMENT (test code = MOC) PLATELET ESTIMATE (test code = PLTEST) PLATELET MORPHOLOGY (test code = PLTMORPH) CBC W/AUTO [id number] 07:53:00* Test Item Value Reference Range Interpretation Comments WHITE BLOOD CELL (test code = WBC) 3.1 K/mm3 4.5-12.5 L RED BLOOD CELL (test code = RBC) 2.66 mill/mm3 3.7-5.2 L HEMOGLOBIN (test code = HGB) 7.9 gram/dL 11.5-15.5 L HEMATOCRIT (test code = HCT) 26.3 % 36.0-46.0 L MEAN CELL VOLUME (test code = MCV) 98.9 fL 80-98 H MEAN CELL HGB (test code = MCH) 29.7 picogram 27.0-33.0 N MEAN CELL HGB CONCETRATION (test code = MCHC) 30.0 gram/dL 33.0-36. 0 L RED CELL DISTRIBUTION WIDTH (test code = RDW) 21.5 % 11.6-16. 2 H RED CELL DISTRIBUTION WIDTH SD (test code = RDW-SD) 74.4 fL 37 .0-51.0 H PLATELET COUNT (test code = PLT) 78 K/mm3 150-450 L MEAN PLATELET VOLUME (test code = MPV) 11.2 fL 6.7-11.0 H NEUTROPHIL % (test code = NT%) 50.4 % 39.0-69.0 N IMMATURE GRANULOCYTE % (test code = IG%) 0.3 % 0.0-5.0 N LYMPHOCYTE % (test code = LY%) 23.7 % 25.0-55.0 L MONOCYTE % (test code = MO%) 13.3 % 0.0-10.0 H EOSINOPHIL % (test code = EO%) 11.7 % 0.0-5.0 H BASOPHIL % (test code = BA%) 0.6 % 0.0-1.0 N NUCLEATED RBC % (test code = NRBC%) 0.0 % 0-0 N NEUTROPHIL # (test code = NT#) 1.55 K/mm3 1.8-7.7 L IMMATURE GRANULOCYTE # (test code = IG#) 0.01 x10 3/uL 0-0.03 N LYMPHOCYTE # (test code = LY#) 0.73 K/mm3 1.0-5.0 L MONOCYTE # (test code = MO#) 0.41 K/mm3 0-0.8 N EOSINOPHIL # (test code = EO#) 0.36 K/mm3 0.0-0.5 N BASOPHIL # (test code = BA#) 0.02 K/mm3 0.0-0.2 N NUCLEATED RBC # (test code = NRBC#) 0.00 K/mm3 0.0-0.1 N MANUAL DIFF REQUIRED (test code = MDIFF) NO, ONLY SCAN NEEDED DIFFERENTIAL [id number] 07:53:00* Test Item Value Reference Range Interpretation Comments STAIN ACCEPTABILITY (test code = STN ACCEPTABLE) MORPHOLOGY COMMENT (test code = MOC) PLATELET ESTIMATE (test code = PLTEST) PLATELET MORPHOLOGY (test code = PLTMORPH) CBC W/AUTO [id number] 07:53:00* Test Item Value Reference Range Interpretation Comments WHITE BLOOD CELL (test code = WBC) 3.1 K/mm3 4.5-12.5 L RED BLOOD CELL (test code = RBC) 2.66 mill/mm3 3.7-5.2 L HEMOGLOBIN (test code = HGB) 7.9 gram/dL 11.5-15.5 L HEMATOCRIT (test code = HCT) 26.3 % 36.0-46.0 L MEAN CELL VOLUME (test code = MCV) 98.9 fL 80-98 H MEAN CELL HGB (test code = MCH) 29.7 picogram 27.0-33.0 N MEAN CELL HGB CONCETRATION (test code = MCHC) 30.0 gram/dL 33.0-36. 0 L RED CELL DISTRIBUTION WIDTH (test code = RDW) 21.5 % 11.6-16. 2 H RED CELL DISTRIBUTION WIDTH SD (test code = RDW-SD) 74.4 fL 37 .0-51.0 H PLATELET COUNT (test code = PLT) 78 K/mm3 150-450 L MEAN PLATELET VOLUME (test code = MPV) 11.2 fL 6.7-11.0 H NEUTROPHIL % (test code = NT%) 50.4 % 39.0-69.0 N IMMATURE GRANULOCYTE % (test code = IG%) 0.3 % 0.0-5.0 N LYMPHOCYTE % (test code = LY%) 23.7 % 25.0-55.0 L MONOCYTE % (test code = MO%) 13.3 % 0.0-10.0 H EOSINOPHIL % (test code = EO%) 11.7 % 0.0-5.0 H BASOPHIL % (test code = BA%) 0.6 % 0.0-1.0 N NUCLEATED RBC % (test code = NRBC%) 0.0 % 0-0 N NEUTROPHIL # (test code = NT#) 1.55 K/mm3 1.8-7.7 L IMMATURE GRANULOCYTE # (test code = IG#) 0.01 x10 3/uL 0-0.03 N LYMPHOCYTE # (test code = LY#) 0.73 K/mm3 1.0-5.0 L MONOCYTE # (test code = MO#) 0.41 K/mm3 0-0.8 N EOSINOPHIL # (test code = EO#) 0.36 K/mm3 0.0-0.5 N BASOPHIL # (test code = BA#) 0.02 K/mm3 0.0-0.2 N NUCLEATED RBC # (test code = NRBC#) 0.00 K/mm3 0.0-0.1 N MANUAL DIFF REQUIRED (test code = MDIFF) NO, ONLY SCAN NEEDED DIFFERENTIAL [id number] 07:53:00* Test Item Value Reference Range Interpretation Comments STAIN ACCEPTABILITY (test code = STN ACCEPTABLE) CABOT RINGS (test code = CAB) MORPHOLOGY COMMENT (test code = MOC) PLATELET ESTIMATE (test code = PLTEST) PLATELET MORPHOLOGY (test code = PLTMORPH) [id number] 16:34:00* Test Item Value Reference Range Interpretation Comments GLUBED (test code = GLUBED) 105 mg/dL 74-106 N Performed by certified collar turner operator at [facility] [id number] 12:33:00* Test Item Value Reference Range Interpretation Comments GLUBED (test code = GLUBED) 145 mg/dL 74-106 H Performed by certified collar turner operator at [facility] CBC W/AUTO [id number] 07:31:00* Test Item Value Reference Range Interpretation Comments WHITE BLOOD CELL (test code = WBC) 2.9 K/mm3 4.5-12.5 L RED BLOOD CELL (test code = RBC) 2.64 mill/mm3 3.7-5.2 L HEMOGLOBIN (test code = HGB) 7.8 gram/dL 11.5-15.5 L HEMATOCRIT (test code = HCT) 25.2 % 36.0-46.0 L MEAN CELL VOLUME (test code = MCV) 95.5 fL 80-98 N MEAN CELL HGB (test code = MCH) 29.5 picogram 27.0-33.0 N MEAN CELL HGB CONCETRATION (test code = MCHC) 31.0 gram/dL 33.0-36. 0 L RED CELL DISTRIBUTION WIDTH (test code = RDW) 22.1 % 11.6-16. 2 H RED CELL DISTRIBUTION WIDTH SD (test code = RDW-SD) 73.6 fL 37 .0-51.0 H PLATELET COUNT (test code = PLT) 75 K/mm3 150-450 L MEAN PLATELET VOLUME (test code = MPV) 10.9 fL 6.7-11.0 N NEUTROPHIL % (test code = NT%) 57.0 % 39.0-69.0 N IMMATURE GRANULOCYTE % (test code = IG%) 0.3 % 0.0-5.0 N LYMPHOCYTE % (test code = LY%) 20.1 % 25.0-55.0 L MONOCYTE % (test code = MO%) 12.3 % 0.0-10.0 H EOSINOPHIL % (test code = EO%) 9.6 % 0.0-5.0 H BASOPHIL % (test code = BA%) 0.7 % 0.0-1.0 N NUCLEATED RBC % (test code = NRBC%) 0.0 % 0-0 N NEUTROPHIL # (test code = NT#) 1.67 K/mm3 1.8-7.7 L IMMATURE GRANULOCYTE # (test code = IG#) 0.01 x10 3/uL 0-0.03 N LYMPHOCYTE # (test code = LY#) 0.59 K/mm3 1.0-5.0 L MONOCYTE # (test code = MO#) 0.36 K/mm3 0-0.8 N EOSINOPHIL # (test code = EO#) 0.28 K/mm3 0.0-0.5 N BASOPHIL # (test code = BA#) 0.02 K/mm3 0.0-0.2 N NUCLEATED RBC # (test code = NRBC#) 0.00 K/mm3 0.0-0.1 N MANUAL DIFF REQUIRED (test code = MDIFF) NO, ONLY SCAN NEEDED DIFFERENTIAL [id number] 07:31:00* Test Item Value Reference Range Interpretation Comments STAIN ACCEPTABILITY (test code = STN ACCEPTABLE) STAIN ACCEPTABLE ANISOCYTOSIS (test code = ANISO) 1+ MACROCYTOSIS (test code = MACR) 1+ PLATELET ESTIMATE (test code = PLTEST) DECREASED PLATELET MORPHOLOGY (test code = PLTMORPH) NORMAL [id number] 05:51:00* Test Item Value Reference Range Interpretation Comments GLUBED (test code = GLUBED) 106 mg/dL 74-106 N Performed by certified collar turner operator at [facility] CBC W/AUTO [id number] 05:12:00* Test Item Value Reference Range Interpretation Comments WHITE BLOOD CELL (test code = WBC) 2.9 K/mm3 4.5-12.5 L RED BLOOD CELL (test code = RBC) 2.64 mill/mm3 3.7-5.2 L HEMOGLOBIN (test code = HGB) 7.8 gram/dL 11.5-15.5 L HEMATOCRIT (test code = HCT) 25.2 % 36.0-46.0 L MEAN CELL VOLUME (test code = MCV) 95.5 fL 80-98 N MEAN CELL HGB (test code = MCH) 29.5 picogram 27.0-33.0 N MEAN CELL HGB CONCETRATION (test code = MCHC) 31.0 gram/dL 33.0-36. 0 L RED CELL DISTRIBUTION WIDTH (test code = RDW) 22.1 % 11.6-16. 2 H RED CELL DISTRIBUTION WIDTH SD (test code = RDW-SD) 73.6 fL 37 .0-51.0 H PLATELET COUNT (test code = PLT) 75 K/mm3 150-450 L MEAN PLATELET VOLUME (test code = MPV) 10.9 fL 6.7-11.0 N NEUTROPHIL % (test code = NT%) 57.0 % 39.0-69.0 N IMMATURE GRANULOCYTE % (test code = IG%) 0.3 % 0.0-5.0 N LYMPHOCYTE % (test code = LY%) 20.1 % 25.0-55.0 L MONOCYTE % (test code = MO%) 12.3 % 0.0-10.0 H EOSINOPHIL % (test code = EO%) 9.6 % 0.0-5.0 H BASOPHIL % (test code = BA%) 0.7 % 0.0-1.0 N NUCLEATED RBC % (test code = NRBC%) 0.0 % 0-0 N NEUTROPHIL # (test code = NT#) 1.67 K/mm3 1.8-7.7 L IMMATURE GRANULOCYTE # (test code = IG#) 0.01 x10 3/uL 0-0.03 N LYMPHOCYTE # (test code = LY#) 0.59 K/mm3 1.0-5.0 L MONOCYTE # (test code = MO#) 0.36 K/mm3 0-0.8 N EOSINOPHIL # (test code = EO#) 0.28 K/mm3 0.0-0.5 N BASOPHIL # (test code = BA#) 0.02 K/mm3 0.0-0.2 N NUCLEATED RBC # (test code = NRBC#) 0.00 K/mm3 0.0-0.1 N MANUAL DIFF REQUIRED (test code = MDIFF) NO, ONLY SCAN NEEDED DIFFERENTIAL [id number] 05:12:00* Test Item Value Reference Range Interpretation Comments STAIN ACCEPTABILITY (test code = STN ACCEPTABLE) CABOT RINGS (test code = CAB) MORPHOLOGY COMMENT (test code = MOC) PLATELET ESTIMATE (test code = PLTEST) PLATELET MORPHOLOGY (test code = PLTMORPH) CBC W/AUTO [id number] 05:12:00* Test Item Value Reference Range Interpretation Comments WHITE BLOOD CELL (test code = WBC) 2.9 K/mm3 4.5-12.5 L RED BLOOD CELL (test code = RBC) 2.64 mill/mm3 3.7-5.2 L HEMOGLOBIN (test code = HGB) 7.8 gram/dL 11.5-15.5 L HEMATOCRIT (test code = HCT) 25.2 % 36.0-46.0 L MEAN CELL VOLUME (test code = MCV) 95.5 fL 80-98 N MEAN CELL HGB (test code = MCH) 29.5 picogram 27.0-33.0 N MEAN CELL HGB CONCETRATION (test code = MCHC) 31.0 gram/dL 33.0-36. 0 L RED CELL DISTRIBUTION WIDTH (test code = RDW) 22.1 % 11.6-16. 2 H RED CELL DISTRIBUTION WIDTH SD (test code = RDW-SD) 73.6 fL 37 .0-51.0 H PLATELET COUNT (test code = PLT) 75 K/mm3 150-450 L MEAN PLATELET VOLUME (test code = MPV) 10.9 fL 6.7-11.0 N NEUTROPHIL % (test code = NT%) 57.0 % 39.0-69.0 N IMMATURE GRANULOCYTE % (test code = IG%) 0.3 % 0.0-5.0 N LYMPHOCYTE % (test code = LY%) 20.1 % 25.0-55.0 L MONOCYTE % (test code = MO%) 12.3 % 0.0-10.0 H EOSINOPHIL % (test code = EO%) 9.6 % 0.0-5.0 H BASOPHIL % (test code = BA%) 0.7 % 0.0-1.0 N NUCLEATED RBC % (test code = NRBC%) 0.0 % 0-0 N NEUTROPHIL # (test code = NT#) 1.67 K/mm3 1.8-7.7 L IMMATURE GRANULOCYTE # (test code = IG#) 0.01 x10 3/uL 0-0.03 N LYMPHOCYTE # (test code = LY#) 0.59 K/mm3 1.0-5.0 L MONOCYTE # (test code = MO#) 0.36 K/mm3 0-0.8 N EOSINOPHIL # (test code = EO#) 0.28 K/mm3 0.0-0.5 N BASOPHIL # (test code = BA#) 0.02 K/mm3 0.0-0.2 N NUCLEATED RBC # (test code = NRBC#) 0.00 K/mm3 0.0-0.1 N MANUAL DIFF REQUIRED (test code = MDIFF) NO, ONLY SCAN NEEDED DIFFERENTIAL [id number] 05:12:00* Test Item Value Reference Range Interpretation Comments STAIN ACCEPTABILITY (test code = STN ACCEPTABLE) MORPHOLOGY COMMENT (test code = MOC) PLATELET ESTIMATE (test code = PLTEST) PLATELET MORPHOLOGY (test code = PLTMORPH) CBC W/AUTO [id number] 05:11:00* Test Item Value Reference Range Interpretation Comments WHITE BLOOD CELL (test code = WBC) 2.9 K/mm3 4.5-12.5 L RED BLOOD CELL (test code = RBC) 2.64 mill/mm3 3.7-5.2 L HEMOGLOBIN (test code = HGB) 7.8 gram/dL 11.5-15.5 L HEMATOCRIT (test code = HCT) 25.2 % 36.0-46.0 L MEAN CELL VOLUME (test code = MCV) 95.5 fL 80-98 N MEAN CELL HGB (test code = MCH) 29.5 picogram 27.0-33.0 N MEAN CELL HGB CONCETRATION (test code = MCHC) 31.0 gram/dL 33.0-36. 0 L RED CELL DISTRIBUTION WIDTH (test code = RDW) 22.1 % 11.6-16. 2 H RED CELL DISTRIBUTION WIDTH SD (test code = RDW-SD) 73.6 fL 37 .0-51.0 H PLATELET COUNT (test code = PLT) 75 K/mm3 150-450 L MEAN PLATELET VOLUME (test code = MPV) 10.9 fL 6.7-11.0 N NEUTROPHIL % (test code = NT%) 57.0 % 39.0-69.0 N IMMATURE GRANULOCYTE % (test code = IG%) 0.3 % 0.0-5.0 N LYMPHOCYTE % (test code = LY%) 20.1 % 25.0-55.0 L MONOCYTE % (test code = MO%) 12.3 % 0.0-10.0 H EOSINOPHIL % (test code = EO%) 9.6 % 0.0-5.0 H BASOPHIL % (test code = BA%) 0.7 % 0.0-1.0 N NUCLEATED RBC % (test code = NRBC%) 0.0 % 0-0 N NEUTROPHIL # (test code = NT#) 1.67 K/mm3 1.8-7.7 L IMMATURE GRANULOCYTE # (test code = IG#) 0.01 x10 3/uL 0-0.03 N LYMPHOCYTE # (test code = LY#) 0.59 K/mm3 1.0-5.0 L MONOCYTE # (test code = MO#) 0.36 K/mm3 0-0.8 N EOSINOPHIL # (test code = EO#) 0.28 K/mm3 0.0-0.5 N BASOPHIL # (test code = BA#) 0.02 K/mm3 0.0-0.2 N NUCLEATED RBC # (test code = NRBC#) 0.00 K/mm3 0.0-0.1 N MANUAL DIFF REQUIRED (test code = MDIFF) NO, ONLY SCAN NEEDED DIFFERENTIAL [id number] 05:11:00* Test Item Value Reference Range Interpretation Comments STAIN ACCEPTABILITY (test code = STN ACCEPTABLE) CABOT RINGS (test code = CAB) MORPHOLOGY COMMENT (test code = MOC) PLATELET ESTIMATE (test code = PLTEST) PLATELET MORPHOLOGY (test code = PLTMORPH) CBC W/AUTO [id number] 05:11:00* Test Item Value Reference Range Interpretation Comments WHITE BLOOD CELL (test code = WBC) 2.9 K/mm3 4.5-12.5 L RED BLOOD CELL (test code = RBC) 2.64 mill/mm3 3.7-5.2 L HEMOGLOBIN (test code = HGB) 7.8 gram/dL 11.5-15.5 L HEMATOCRIT (test code = HCT) 25.2 % 36.0-46.0 L MEAN CELL VOLUME (test code = MCV) 95.5 fL 80-98 N MEAN CELL HGB (test code = MCH) 29.5 picogram 27.0-33.0 N MEAN CELL HGB CONCETRATION (test code = MCHC) 31.0 gram/dL 33.0-36. 0 L RED CELL DISTRIBUTION WIDTH (test code = RDW) 22.1 % 11.6-16. 2 H RED CELL DISTRIBUTION WIDTH SD (test code = RDW-SD) 73.6 fL 37 .0-51.0 H PLATELET COUNT (test code = PLT) 75 K/mm3 150-450 L MEAN PLATELET VOLUME (test code = MPV) 10.9 fL 6.7-11.0 N NEUTROPHIL % (test code = NT%) 57.0 % 39.0-69.0 N IMMATURE GRANULOCYTE % (test code = IG%) 0.3 % 0.0-5.0 N LYMPHOCYTE % (test code = LY%) 20.1 % 25.0-55.0 L MONOCYTE % (test code = MO%) 12.3 % 0.0-10.0 H EOSINOPHIL % (test code = EO%) 9.6 % 0.0-5.0 H BASOPHIL % (test code = BA%) 0.7 % 0.0-1.0 N NUCLEATED RBC % (test code = NRBC%) 0.0 % 0-0 N NEUTROPHIL # (test code = NT#) 1.67 K/mm3 1.8-7.7 L IMMATURE GRANULOCYTE # (test code = IG#) 0.01 x10 3/uL 0-0.03 N LYMPHOCYTE # (test code = LY#) 0.59 K/mm3 1.0-5.0 L MONOCYTE # (test code = MO#) 0.36 K/mm3 0-0.8 N EOSINOPHIL # (test code = EO#) 0.28 K/mm3 0.0-0.5 N BASOPHIL # (test code = BA#) 0.02 K/mm3 0.0-0.2 N NUCLEATED RBC # (test code = NRBC#) 0.00 K/mm3 0.0-0.1 N MANUAL DIFF REQUIRED (test code = MDIFF) NO, ONLY SCAN NEEDED DIFFERENTIAL [id number] 05:11:00* Test Item Value Reference Range Interpretation Comments STAIN ACCEPTABILITY (test code = STN ACCEPTABLE) CABOT RINGS (test code = CAB) MORPHOLOGY COMMENT (test code = MOC) PLATELET ESTIMATE (test code = PLTEST) PLATELET MORPHOLOGY (test code = PLTMORPH) [id number] 21:16:00* Test Item Value Reference Range Interpretation Comments GLUBED (test code = GLUBED) 139 mg/dL 74-106 H Performed by certified collar turner operator at [facility] HGB [id number] 19:55:00* Test Item Value Reference Range Interpretation Comments HEMOGLOBIN (test code = HGB) 8.0 gram/dL 11.5-15.5 L HEMATOCRIT (test code = HCT) 27.0 % 36.0-46.0 L [id number] 18:56:00* Test Item Value Reference Range Interpretation Comments GLUBED (test code = GLUBED) 101 mg/dL 74-106 N Performed by certified collar turner operator at [facility] HGB [id number] 13:48:00* Test Item Value Reference Range Interpretation Comments HEMOGLOBIN (test code = HGB) 8.0 gram/dL 11.5-15.5 L HEMATOCRIT (test code = HCT) 26.9 % 36.0-46.0 L [id number] 13:01:00* Test Item Value Reference Range Interpretation Comments GLUBED (test code = GLUBED) 106 mg/dL 74-106 N Performed by certified collar turner operator at [facility] [id number] 13:01:00* Test Item Value Reference Range Interpretation Comments GLUBED (test code = GLUBED) < 10 mg/dL 74-106 LL Test performed as P.O.C. by nursing staff.[facility] CBC W/AUTO [id number] 10:45:00* Test Item Value Reference Range Interpretation Comments WHITE BLOOD CELL (test code = WBC) 2.5 K/mm3 4.5-12.5 L RED BLOOD CELL (test code = RBC) 2.47 mill/mm3 3.7-5.2 L HEMOGLOBIN (test code = HGB) 7.1 gram/dL 11.5-15.5 L HEMATOCRIT (test code = HCT) 24.2 % 36.0-46.0 L MEAN CELL VOLUME (test code = MCV) 98.0 fL 80-98 N MEAN CELL HGB (test code = MCH) 28.7 picogram 27.0-33.0 N MEAN CELL HGB CONCETRATION (test code = MCHC) 29.3 gram/dL 33.0-36. 0 L RED CELL DISTRIBUTION WIDTH (test code = RDW) 21.9 % 11.6-16. 2 H RED CELL DISTRIBUTION WIDTH SD (test code = RDW-SD) 76.8 fL 37 .0-51.0 H PLATELET COUNT (test code = PLT) 67 K/mm3 150-450 L MEAN PLATELET VOLUME (test code = MPV) 11.0 fL 6.7-11.0 N NEUTROPHIL % (test code = NT%) 62.7 % 39.0-69.0 N IMMATURE GRANULOCYTE % (test code = IG%) 0.4 % 0.0-5.0 N LYMPHOCYTE % (test code = LY%) 18.1 % 25.0-55.0 L MONOCYTE % (test code = MO%) 8.0 % 0.0-10.0 N EOSINOPHIL % (test code = EO%) 10.4 % 0.0-5.0 H BASOPHIL % (test code = BA%) 0.4 % 0.0-1.0 N NUCLEATED RBC % (test code = NRBC%) 0.0 % 0-0 N NEUTROPHIL # (test code = NT#) 1.56 K/mm3 1.8-7.7 L IMMATURE GRANULOCYTE # (test code = IG#) 0.01 x10 3/uL 0-0.03 N LYMPHOCYTE # (test code = LY#) 0.45 K/mm3 1.0-5.0 L MONOCYTE # (test code = MO#) 0.20 K/mm3 0-0.8 N EOSINOPHIL # (test code = EO#) 0.26 K/mm3 0.0-0.5 N BASOPHIL # (test code = BA#) 0.01 K/mm3 0.0-0.2 N NUCLEATED RBC # (test code = NRBC#) 0.00 K/mm3 0.0-0.1 N MANUAL DIFF REQUIRED (test code = MDIFF) NO, ONLY SCAN NEEDED DIFFERENTIAL [id number] 10:45:00* Test Item Value Reference Range Interpretation Comments STAIN ACCEPTABILITY (test code = STN ACCEPTABLE) STAIN ACCEPTABLE POLYCHROMASIA (test code = POLC) 1+ HYPOCHROMIA (test code = HYPO) 1+ ANISOCYTOSIS (test code = ANISO) 1+ PLATELET ESTIMATE (test code = PLTEST) DECREASED PLATELET MORPHOLOGY (test code = PLTMORPH) NORMAL CBC W/AUTO [id number] 10:16:00* Test Item Value Reference Range Interpretation Comments WHITE BLOOD CELL (test code = WBC) 2.5 K/mm3 4.5-12.5 L RED BLOOD CELL (test code = RBC) 2.47 mill/mm3 3.7-5.2 L HEMOGLOBIN (test code = HGB) 7.1 gram/dL 11.5-15.5 L HEMATOCRIT (test code = HCT) 24.2 % 36.0-46.0 L MEAN CELL VOLUME (test code = MCV) 98.0 fL 80-98 N MEAN CELL HGB (test code = MCH) 28.7 picogram 27.0-33.0 N MEAN CELL HGB CONCETRATION (test code = MCHC) 29.3 gram/dL 33.0-36. 0 L RED CELL DISTRIBUTION WIDTH (test code = RDW) 21.9 % 11.6-16. 2 H RED CELL DISTRIBUTION WIDTH SD (test code = RDW-SD) 76.8 fL 37 .0-51.0 H PLATELET COUNT (test code = PLT) 67 K/mm3 150-450 L MEAN PLATELET VOLUME (test code = MPV) 11.0 fL 6.7-11.0 N NEUTROPHIL % (test code = NT%) 62.7 % 39.0-69.0 N IMMATURE GRANULOCYTE % (test code = IG%) 0.4 % 0.0-5.0 N LYMPHOCYTE % (test code = LY%) 18.1 % 25.0-55.0 L MONOCYTE % (test code = MO%) 8.0 % 0.0-10.0 N EOSINOPHIL % (test code = EO%) 10.4 % 0.0-5.0 H BASOPHIL % (test code = BA%) 0.4 % 0.0-1.0 N NUCLEATED RBC % (test code = NRBC%) 0.0 % 0-0 N NEUTROPHIL # (test code = NT#) 1.56 K/mm3 1.8-7.7 L IMMATURE GRANULOCYTE # (test code = IG#) 0.01 x10 3/uL 0-0.03 N LYMPHOCYTE # (test code = LY#) 0.45 K/mm3 1.0-5.0 L MONOCYTE # (test code = MO#) 0.20 K/mm3 0-0.8 N EOSINOPHIL # (test code = EO#) 0.26 K/mm3 0.0-0.5 N BASOPHIL # (test code = BA#) 0.01 K/mm3 0.0-0.2 N NUCLEATED RBC # (test code = NRBC#) 0.00 K/mm3 0.0-0.1 N MANUAL DIFF REQUIRED (test code = MDIFF) NO, ONLY SCAN NEEDED DIFFERENTIAL [id number] 10:16:00* Test Item Value Reference Range Interpretation Comments STAIN ACCEPTABILITY (test code = STN ACCEPTABLE) CABOT RINGS (test code = CAB) MORPHOLOGY COMMENT (test code = MOC) PLATELET ESTIMATE (test code = PLTEST) PLATELET MORPHOLOGY (test code = PLTMORPH) CBC W/AUTO [id number] 10:16:00* Test Item Value Reference Range Interpretation Comments WHITE BLOOD CELL (test code = WBC) 2.5 K/mm3 4.5-12.5 L RED BLOOD CELL (test code = RBC) 2.47 mill/mm3 3.7-5.2 L HEMOGLOBIN (test code = HGB) 7.1 gram/dL 11.5-15.5 L HEMATOCRIT (test code = HCT) 24.2 % 36.0-46.0 L MEAN CELL VOLUME (test code = MCV) 98.0 fL 80-98 N MEAN CELL HGB (test code = MCH) 28.7 picogram 27.0-33.0 N MEAN CELL HGB CONCETRATION (test code = MCHC) 29.3 gram/dL 33.0-36. 0 L RED CELL DISTRIBUTION WIDTH (test code = RDW) 21.9 % 11.6-16. 2 H RED CELL DISTRIBUTION WIDTH SD (test code = RDW-SD) 76.8 fL 37 .0-51.0 H PLATELET COUNT (test code = PLT) 67 K/mm3 150-450 L MEAN PLATELET VOLUME (test code = MPV) 11.0 fL 6.7-11.0 N NEUTROPHIL % (test code = NT%) 62.7 % 39.0-69.0 N IMMATURE GRANULOCYTE % (test code = IG%) 0.4 % 0.0-5.0 N LYMPHOCYTE % (test code = LY%) 18.1 % 25.0-55.0 L MONOCYTE % (test code = MO%) 8.0 % 0.0-10.0 N EOSINOPHIL % (test code = EO%) 10.4 % 0.0-5.0 H BASOPHIL % (test code = BA%) 0.4 % 0.0-1.0 N NUCLEATED RBC % (test code = NRBC%) 0.0 % 0-0 N NEUTROPHIL # (test code = NT#) 1.56 K/mm3 1.8-7.7 L IMMATURE GRANULOCYTE # (test code = IG#) 0.01 x10 3/uL 0-0.03 N LYMPHOCYTE # (test code = LY#) 0.45 K/mm3 1.0-5.0 L MONOCYTE # (test code = MO#) 0.20 K/mm3 0-0.8 N EOSINOPHIL # (test code = EO#) 0.26 K/mm3 0.0-0.5 N BASOPHIL # (test code = BA#) 0.01 K/mm3 0.0-0.2 N NUCLEATED RBC # (test code = NRBC#) 0.00 K/mm3 0.0-0.1 N MANUAL DIFF REQUIRED (test code = MDIFF) NO, ONLY SCAN NEEDED DIFFERENTIAL [id number] 10:16:00* Test Item Value Reference Range Interpretation Comments STAIN ACCEPTABILITY (test code = STN ACCEPTABLE) CABOT RINGS (test code = CAB) MORPHOLOGY COMMENT (test code = MOC) PLATELET ESTIMATE (test code = PLTEST) PLATELET MORPHOLOGY (test code = PLTMORPH) CBC W/AUTO [id number] 10:16:00* Test Item Value Reference Range Interpretation Comments WHITE BLOOD CELL (test code = WBC) 2.5 K/mm3 4.5-12.5 L RED BLOOD CELL (test code = RBC) 2.47 mill/mm3 3.7-5.2 L HEMOGLOBIN (test code = HGB) 7.1 gram/dL 11.5-15.5 L HEMATOCRIT (test code = HCT) 24.2 % 36.0-46.0 L MEAN CELL VOLUME (test code = MCV) 98.0 fL 80-98 N MEAN CELL HGB (test code = MCH) 28.7 picogram 27.0-33.0 N MEAN CELL HGB CONCETRATION (test code = MCHC) 29.3 gram/dL 33.0-36. 0 L RED CELL DISTRIBUTION WIDTH (test code = RDW) 21.9 % 11.6-16. 2 H RED CELL DISTRIBUTION WIDTH SD (test code = RDW-SD) 76.8 fL 37 .0-51.0 H PLATELET COUNT (test code = PLT) 67 K/mm3 150-450 L MEAN PLATELET VOLUME (test code = MPV) 11.0 fL 6.7-11.0 N NEUTROPHIL % (test code = NT%) 62.7 % 39.0-69.0 N IMMATURE GRANULOCYTE % (test code = IG%) 0.4 % 0.0-5.0 N LYMPHOCYTE % (test code = LY%) 18.1 % 25.0-55.0 L MONOCYTE % (test code = MO%) 8.0 % 0.0-10.0 N EOSINOPHIL % (test code = EO%) 10.4 % 0.0-5.0 H BASOPHIL % (test code = BA%) 0.4 % 0.0-1.0 N NUCLEATED RBC % (test code = NRBC%) 0.0 % 0-0 N NEUTROPHIL # (test code = NT#) 1.56 K/mm3 1.8-7.7 L IMMATURE GRANULOCYTE # (test code = IG#) 0.01 x10 3/uL 0-0.03 N LYMPHOCYTE # (test code = LY#) 0.45 K/mm3 1.0-5.0 L MONOCYTE # (test code = MO#) 0.20 K/mm3 0-0.8 N EOSINOPHIL # (test code = EO#) 0.26 K/mm3 0.0-0.5 N BASOPHIL # (test code = BA#) 0.01 K/mm3 0.0-0.2 N NUCLEATED RBC # (test code = NRBC#) 0.00 K/mm3 0.0-0.1 N MANUAL DIFF REQUIRED (test code = MDIFF) NO, ONLY SCAN NEEDED DIFFERENTIAL [id number] 10:16:00* Test Item Value Reference Range Interpretation Comments STAIN ACCEPTABILITY (test code = STN ACCEPTABLE) MORPHOLOGY COMMENT (test code = MOC) PLATELET ESTIMATE (test code = PLTEST) PLATELET MORPHOLOGY (test code = PLTMORPH) CBC W/AUTO [id number] 10:16:00* Test Item Value Reference Range Interpretation Comments WHITE BLOOD CELL (test code = WBC) 2.5 K/mm3 4.5-12.5 L RED BLOOD CELL (test code = RBC) 2.47 mill/mm3 3.7-5.2 L HEMOGLOBIN (test code = HGB) 7.1 gram/dL 11.5-15.5 L HEMATOCRIT (test code = HCT) 24.2 % 36.0-46.0 L MEAN CELL VOLUME (test code = MCV) 98.0 fL 80-98 N MEAN CELL HGB (test code = MCH) 28.7 picogram 27.0-33.0 N MEAN CELL HGB CONCETRATION (test code = MCHC) 29.3 gram/dL 33.0-36. 0 L RED CELL DISTRIBUTION WIDTH (test code = RDW) 21.9 % 11.6-16. 2 H RED CELL DISTRIBUTION WIDTH SD (test code = RDW-SD) 76.8 fL 37 .0-51.0 H PLATELET COUNT (test code = PLT) 67 K/mm3 150-450 L MEAN PLATELET VOLUME (test code = MPV) 11.0 fL 6.7-11.0 N NEUTROPHIL % (test code = NT%) 62.7 % 39.0-69.0 N IMMATURE GRANULOCYTE % (test code = IG%) 0.4 % 0.0-5.0 N LYMPHOCYTE % (test code = LY%) 18.1 % 25.0-55.0 L MONOCYTE % (test code = MO%) 8.0 % 0.0-10.0 N EOSINOPHIL % (test code = EO%) 10.4 % 0.0-5.0 H BASOPHIL % (test code = BA%) 0.4 % 0.0-1.0 N NUCLEATED RBC % (test code = NRBC%) 0.0 % 0-0 N NEUTROPHIL # (test code = NT#) 1.56 K/mm3 1.8-7.7 L IMMATURE GRANULOCYTE # (test code = IG#) 0.01 x10 3/uL 0-0.03 N LYMPHOCYTE # (test code = LY#) 0.45 K/mm3 1.0-5.0 L MONOCYTE # (test code = MO#) 0.20 K/mm3 0-0.8 N EOSINOPHIL # (test code = EO#) 0.26 K/mm3 0.0-0.5 N BASOPHIL # (test code = BA#) 0.01 K/mm3 0.0-0.2 N NUCLEATED RBC # (test code = NRBC#) 0.00 K/mm3 0.0-0.1 N MANUAL DIFF REQUIRED (test code = MDIFF) NO, ONLY SCAN NEEDED DIFFERENTIAL [id number] 10:16:00* Test Item Value Reference Range Interpretation Comments STAIN ACCEPTABILITY (test code = STN ACCEPTABLE) CABOT RINGS (test code = CAB) MORPHOLOGY COMMENT (test code = MOC) PLATELET ESTIMATE (test code = PLTEST) PLATELET MORPHOLOGY (test code = PLTMORPH) HGB [id number] 08:37:00* Test Item Value Reference Range Interpretation Comments HEMOGLOBIN (test code = HGB) 8.6 gram/dL 11.5-15.5 L HEMATOCRIT (test code = HCT) 29.0 % 36.0-46.0 L HGB [id number] 02:08:00* Test Item Value Reference Range Interpretation Comments HEMOGLOBIN (test code = HGB) 7.0 gram/dL 11.5-15.5 L HEMATOCRIT (test code = HCT) 24.2 % 36.0-46.0 L URINALYSIS [id number] 21:13:00* Test Item Value Reference Range Interpretation Comments UA COLOR (test code = COLU) LIGHT YELLOW YELLOW UA APPEARANCE (test code = APPU) CLEAR CLEAR UA GLUCOSE DIPSTICK (test code = DGLUU) NEGATIVE mg/dL NEGATIVE UA BILIRUBIN DIPSTICK (test code = BILU) NEGATIVE NEGATIVE UA KETONE DIPSTICK (test code = KETU) NEGATIVE mg/dL NEGATIVE UA SPECIFIC GRAVITY (test code = SGU) 1.010 1.001-1.035 UA BLOOD DIPSTICK (test code = VIJYA) 1+ (Small) NEGATIVE A UA PH DIPSTICK (test code = RACHNA) 8.5 5.0-8.0 UA PROTEIN DIPSTICK (test code = PROU) NEGATIVE mg/dL Neg-15 UA UROBILINIOGEN DIPSTICK (test code = URO) 1 mg/dL (1+) mg/dL 0.0 -0.2 UA NITRITE DIPSTICK (test code = ROCKY) NEGATIVE NEGATIVE UA LEUKOCYTE ESTERASE W REFLEX (test code = LEUUR) NEGATIVE NEG ATIVE UA WBC (test code = WBCU) 0-5 per HPF 0-5 UA RBC (test code = RBCU) 6-10 #/HPF 0-5 A UA EPITHELIAL CELLS (test code = EPIU) FEW per HPF FEW UA BACTERIA (test code = BACU) FEW #/HPF NONE A UA RENAL CELLS (test code = RENNY) 0-2 #/HPF 0-5 Urine Source? Clean CatchURINALYSIS [id number] 21:08:00* Test Item Value Reference Range Interpretation Comments UA COLOR (test code = COLU) YELLOW UA APPEARANCE (test code = APPU) CLEAR UA BILIRUBIN DIPSTICK (test code = BILU) NEGATIVE UA SPECIFIC GRAVITY (test code = SGU) 1.001-1.035 UA PH DIPSTICK (test code = RACHNA) 5.0-8.0 UA UROBILINIOGEN DIPSTICK (test code = URO) mg/dL 0.0-0.2 UA NITRITE DIPSTICK (test code = ROCKY) NEGATIVE UA LEUKOCYTE ESTERASE W REFLEX (test code = LEUUR) NEG ATIVE UA WBC (test code = WBCU) 0-5 per HPF 0-5 UA RBC (test code = RBCU) 6-10 #/HPF 0-5 A UA EPITHELIAL CELLS (test code = EPIU) FEW per HPF FEW UA BACTERIA (test code = BACU) FEW #/HPF NONE A UA RENAL CELLS (test code = RENNY) 0-2 #/HPF 0-5 Urine Source? Clean [id number] 20:49:00* Test Item Value Reference Range Interpretation Comments AMMONIA (test code = AMM) 116 umol/L 11-32 H BASIC METABOLIC [id number] 20:48:00* Test Item Value Reference Range Interpretation Comments SODIUM (test code = NA) 144 mmol/L 136-145 N POTASSIUM (test code = K) 4.1 mmol/L 3.5-5.1 N CHLORIDE (test code = CL) 105.0 mmol/L 98-107 N CARBON DIOXIDE (test code = CO2) 33.0 mmol/L 21-32 H ANION GAP (test code = GAP) 10.1 10-20 N GLUCOSE (test code = GLU) 114 mg/dL 74-106 H BLOOD UREA NITROGEN (test code = BUN) 12 mg/dL 7-18 N GLOMERULAR FILTRATION RATE (test code = GFR) > 60 mL/min >=60 Estimated GFR by using Modified MDRD formula.Chronic kidney disease is defined as either kidney damageor GFR <60 mL/min/1.73 m2 for >3 months. CREATININE (test code = CREAT) 0.80 mg/dL 0.55-1.02 N Note change in reference range due to change in reagent. BUN/CREATININE RATIO (test code = BUN/CREA) 15.1 10-20 N CALCIUM (test code = CA) 8.4 mg/dL 8.5-10.1 L HEPATIC FUNCTION [id number] 20:48:00* Test Item Value Reference Range Interpretation Comments TOTAL PROTEIN (test code = PROT) 6.3 gram/dL 6.4-8.2 L ALBUMIN (test code = ALB) 2.4 g/dL 3.4-5.0 L GLOBULIN (test code = GLOB) 3.9 gram/dL 2.7-4.2 N ALBUMIN/GLOBULIN RATIO (test code = A/G) 0.6 0.75-1.50 L BILIRUBIN TOTAL (test code = BILT) 2.00 mg/dL 0.0-1.0 H BILIRUBIN DIRECT (test code = BILD) 0.93 mg/dL 0.0-0.20 H SGOT/AST (test code = AST) 32 IUnit/L 15-37 N SGPT/ALT (test code = ALT) 19 IUnit/L 12-78 N ALKALINE PHOSPHATASE TOTAL (test code = ALKP) 165 IUnit/L 45-117 H Note change in reference range due to change in reagent. [id number] 20:48:00* Test Item Value Reference Range Interpretation Comments LIPASE (test code = LIP) 45 U/L 73.0-393.0 L [id number] 20:48:00* Test Item Value Reference Range Interpretation Comments TROPONIN-I (test code = TROPI) <0.015 ng/mL 0-0.045 N - CT HEAD/BRAIN W/O [id number] 20:43:00 Name: ALEX STANTON [facility] : 1950 Age/S: 68 / F [address] [facility] Unit #: [id number] Loc: [place] [address] Phys: Sugey Burkett MD Acct: [id number] Dis Date: Status: REG ER PHONE #: [phone] Exam Date: 12/20/20182022 FAX #: [phone] Reason: ams EXAMS: CPT CODE: [id number] CT HEAD/BRAIN W/O CONT 26660 HISTORY: ams TECHNIQUE: Noncontrast 2.[address] of the head. Examination acquired within 24 hours of arrival. Automated exposure control for dose reduction. COMPARISON: Noncontrast CT brain June 30, 2018 FINDINGS: No lacerations or contusions of the scalp or facial soft tissues. Calvarium and skull base are intact. No acute hemorrhage. No intracranial mass, mass effect, or midline shift. No effacement of the sulci or lebron- white matter interface. There is age-appropriate cortical atrophy. Mildly decreased attenuation of the periventricular white matter is unchanged from the prior exam and likely represents chronic microvascular ischemic changes. No hydrocephalus.. No extra- axial fluid collection. Visualized paranasal sinuses are clear. Mild opacification of the right mastoid air cells, similar to prior exam. The left mastoid air cells and both middle ear cavities are clear. Prior lens extraction bilaterally. IMPRESSION: No acute intracranial process or significant change from prior exam. See a braulio discussion. Location: [facility] Pao li Signed by Dick Junior MD on 12/20/2018 at 2042 Rep orted and signed by: Dick Junior MD PAGE 1 Sign ed Report (CONTINUED) Name: ALEX STANTON [facility] : 1950 Age/S: 68 / F [address] [facility] Unit #: [id number] Loc: [place] [address] Phys: Sugey Burkett MD Acct: [id number] Dis Date: Status: REG ER PHONE #: [phone] Exam Date: 12/20/20182022 FAX #: [phone] Reason: ams EXAMS: CPT CODE: [id number] CT HEAD/BRAIN W/O CONT 76748 <Continued> CC: Sugey Burkett MD Technologist:STEPAN ACOSTA RT(R) CT CTDI: DLP: Trnscb Date/Time: 12/20/2018 (2042) [email or web address] Orig Print D/T: S: 12/20/2018 (2045) PAGE 2 Signed Report PROTHROMBIN [id number] 20:42:00* Test Item Value Reference Range Interpretation Comments PROTHROMBIN TIME PATIENT (test code = PTP) 13.2 seconds 9.0-14.0 N INTERNATIONAL NORMAL RATIO (test code = INR) 1.1 0.8-1.2 N The therapeutic range for oral anticoagulant therapy [...] (2.5-3.5) IS PATIENT ON ANTICOAGULANTS? NTHROMBOPLASTIN TIME [id number] 20:42:00* Test Item Value Reference Range Interpretation Comments THROMBOPLASTIN TIME PARTIAL (test code = PTT) 34.2 seconds 25.0-36. 5 N IS PATIENT ON ANTICOAGULANTS? NBASIC METABOLIC [id number] 20:37:00* Test Item Value Reference Range Interpretation Comments SODIUM (test code = NA) 144 mmol/L 136-145 N POTASSIUM (test code = K) 4.1 mmol/L 3.5-5.1 N CHLORIDE (test code = CL) 105.0 mmol/L 98-107 N CARBON DIOXIDE (test code = CO2) mmol/L 21-32 ANION GAP (test code = GAP) 10-20 GLUCOSE (test code = GLU) mg/dL 74-106 BLOOD UREA NITROGEN (test code = BUN) mg/dL 7-18 GLOMERULAR FILTRATION RATE (test code = GFR) mL/min >=60 CREATININE (test code = CREAT) mg/dL 0.55-1.02 BUN/CREATININE RATIO (test code = BUN/CREA) 10-20 CALCIUM (test code = CA) mg/dL 8.5-10.1 HEPATIC FUNCTION [id number] 20:37:00* Test Item Value Reference Range Interpretation Comments TOTAL PROTEIN (test code = PROT) gram/dL 6.4-8.2 ALBUMIN (test code = ALB) g/dL 3.4-5.0 GLOBULIN (test code = GLOB) gram/dL 2.7-4.2 ALBUMIN/GLOBULIN RATIO (test code = A/G) 0.75-1.50 BILIRUBIN TOTAL (test code = BILT) mg/dL 0.0-1.0 BILIRUBIN DIRECT (test code = BILD) mg/dL 0.0-0.20 SGOT/AST (test code = AST) IUnit/L 15-37 SGPT/ALT (test code = ALT) IUnit/L 12-78 ALKALINE PHOSPHATASE TOTAL (test code = ALKP) IUnit/L 45-117 [id number] 20:37:00* Test Item Value Reference Range Interpretation Comments LIPASE (test code = LIP) U/L 73.0-393.0 [id number] 20:37:00* Test Item Value Reference Range Interpretation Comments TROPONIN-I (test code = TROPI) ng/mL 0-0.045 CBC W/O [id number] 20:29:00* Test Item Value Reference Range Interpretation Comments WHITE BLOOD CELL (test code = WBC) 3.5 K/mm3 4.5-12.5 L RED BLOOD CELL (test code = RBC) 2.49 mill/mm3 3.7-5.2 L HEMOGLOBIN (test code = HGB) 7.2 gram/dL 11.5-15.5 L HEMATOCRIT (test code = HCT) 24.6 % 36.0-46.0 L MEAN CELL VOLUME (test code = MCV) 98.8 fL 80-98 H MEAN CELL HGB (test code = MCH) 28.9 picogram 27.0-33.0 N MEAN CELL HGB CONCETRATION (test code = MCHC) 29.3 gram/dL 33.0-36. 0 L RED CELL DISTRIBUTION WIDTH (test code = RDW) 21.3 % 11.6-16. 2 H PLATELET COUNT (test code = PLT) 78 K/mm3 150-450 L RESULT VERIFIED BY REPEAT ANALYSIS MEAN PLATELET VOLUME (test code = MPV) 10.9 fL 6.7-11.0 N [id number] 12:28:00* Test Item Value Reference Range Interpretation Comments GLUBED (test code = GLUBED) 123 mg/dL 74-106 H Performed by certified collar turner operator at [facility] [id number] 08:13:00* Test Item Value Reference Range Interpretation Comments GLUBED (test code = GLUBED) 124 mg/dL 74-106 H Performed by certified collar turner operator at [facility] [id number] 21:01:00* Test Item Value Reference Range Interpretation Comments GLUBED (test code = GLUBED) 129 mg/dL 74-106 H Performed by certified collar turner operator at [facility] [id number] 15:56:00* Test Item Value Reference Range Interpretation Comments GLUBED (test code = GLUBED) 155 mg/dL 74-106 H Performed by certified collar turner operator at [facility] BASIC METABOLIC [id number] 12:04:00* Test Item Value Reference Range Interpretation Comments SODIUM (test code = NA) 141 mmol/L 136-145 N POTASSIUM (test code = K) 4.0 mmol/L 3.5-5.1 N CHLORIDE (test code = CL) 109.0 mmol/L 98-107 H CARBON DIOXIDE (test code = CO2) 29.0 mmol/L 21-32 N ANION GAP (test code = GAP) 7.0 10-20 L GLUCOSE (test code = GLU) 131 mg/dL 74-106 H BLOOD UREA NITROGEN (test code = BUN) 6 mg/dL 7-18 L GLOMERULAR FILTRATION RATE (test code = GFR) > 60 mL/min >=60 Estimated GFR by using Modified MDRD formula.Chronic kidney disease is defined as either kidney damageor GFR <60 mL/min/1.73 m2 for >3 months. CREATININE (test code = CREAT) 0.70 mg/dL 0.55-1.02 N Note change in reference range due to change in reagent. BUN/CREATININE RATIO (test code = BUN/CREA) 8.7 10-20 L CALCIUM (test code = CA) 8.0 mg/dL 8.5-10.1 L BASIC METABOLIC [id number] 11:51:00* Test Item Value Reference Range Interpretation Comments SODIUM (test code = NA) 141 mmol/L 136-145 N POTASSIUM (test code = K) 4.0 mmol/L 3.5-5.1 N CHLORIDE (test code = CL) 109.0 mmol/L 98-107 H CARBON DIOXIDE (test code = CO2) mmol/L 21-32 ANION GAP (test code = GAP) 10-20 GLUCOSE (test code = GLU) mg/dL 74-106 BLOOD UREA NITROGEN (test code = BUN) mg/dL 7-18 GLOMERULAR FILTRATION RATE (test code = GFR) mL/min >=60 CREATININE (test code = CREAT) mg/dL 0.55-1.02 BUN/CREATININE RATIO (test code = BUN/CREA) 10-20 CALCIUM (test code = CA) mg/dL 8.5-10.1 [id number] 11:45:00* Test Item Value Reference Range Interpretation Comments GLUBED (test code = GLUBED) 125 mg/dL 74-106 H Performed by certified collar turner operator at [facility] [id number] 08:02:00* Test Item Value Reference Range Interpretation Comments GLUBED (test code = GLUBED) 108 mg/dL 74-106 H Performed by certified collar turner operator at [facility] [id number] 05:07:00* Test Item Value Reference Range Interpretation Comments AMMONIA (test code = AMM) 94 umol/L 11-32 H [id number] 21:06:00* Test Item Value Reference Range Interpretation Comments GLUBED (test code = GLUBED) 139 mg/dL 74-106 H Performed by certified collar turner operator at [facility] CBC W/AUTO [id number] 18:14:00* Test Item Value Reference Range Interpretation Comments WHITE BLOOD CELL (test code = WBC) 3.9 K/mm3 4.5-12.5 L RED BLOOD CELL (test code = RBC) 3.20 mill/mm3 3.7-5.2 L HEMOGLOBIN (test code = HGB) 9.1 gram/dL 11.5-15.5 L HEMATOCRIT (test code = HCT) 31.9 % 36.0-46.0 L MEAN CELL VOLUME (test code = MCV) 99.7 fL 80-98 H RESULT VERIFIED BY REPEAT ANALYSIS MEAN CELL HGB (test code = MCH) 28.4 picogram 27.0-33.0 N MEAN CELL HGB CONCETRATION (test code = MCHC) 28.5 gram/dL 33.0-36. 0 L RED CELL DISTRIBUTION WIDTH (test code = RDW) 17.3 % 11.6-16. 2 H RED CELL DISTRIBUTION WIDTH SD (test code = RDW-SD) 57.8 fL 37 .0-51.0 H PLATELET COUNT (test code = PLT) 63 K/mm3 150-450 L MEAN PLATELET VOLUME (test code = MPV) 11.3 fL 6.7-11.0 H NEUTROPHIL % (test code = NT%) 64.2 % 39.0-69.0 N IMMATURE GRANULOCYTE % (test code = IG%) 0.3 % 0.0-5.0 N LYMPHOCYTE % (test code = LY%) 17.1 % 25.0-55.0 L MONOCYTE % (test code = MO%) 10.1 % 0.0-10.0 H EOSINOPHIL % (test code = EO%) 7.8 % 0.0-5.0 H BASOPHIL % (test code = BA%) 0.5 % 0.0-1.0 N NUCLEATED RBC % (test code = NRBC%) 0.0 % 0-0 N NEUTROPHIL # (test code = NT#) 2.49 K/mm3 1.8-7.7 N IMMATURE GRANULOCYTE # (test code = IG#) 0.01 x10 3/uL 0-0.03 N LYMPHOCYTE # (test code = LY#) 0.66 K/mm3 1.0-5.0 L MONOCYTE # (test code = MO#) 0.39 K/mm3 0-0.8 N EOSINOPHIL # (test code = EO#) 0.30 K/mm3 0.0-0.5 N BASOPHIL # (test code = BA#) 0.02 K/mm3 0.0-0.2 N NUCLEATED RBC # (test code = NRBC#) 0.00 K/mm3 0.0-0.1 N MANUAL DIFF REQUIRED (test code = MDIFF) NO, ONLY SCAN NEEDED DIFFERENTIAL [id number] 18:14:00* Test Item Value Reference Range Interpretation Comments STAIN ACCEPTABILITY (test code = STN ACCEPTABLE) STAIN ACCEPTABLE HYPOCHROMIA (test code = HYPO) 2+ PLATELET ESTIMATE (test code = PLTEST) DECREASED PLATELET MORPHOLOGY (test code = PLTMORPH) NORMAL [id number] 17:51:00* Test Item Value Reference Range Interpretation Comments AMMONIA (test code = AMM) 114 umol/L 11-32 H CBC W/AUTO [id number] 17:38:00* Test Item Value Reference Range Interpretation Comments WHITE BLOOD CELL (test code = WBC) 3.9 K/mm3 4.5-12.5 L RED BLOOD CELL (test code = RBC) 3.20 mill/mm3 3.7-5.2 L HEMOGLOBIN (test code = HGB) 9.1 gram/dL 11.5-15.5 L HEMATOCRIT (test code = HCT) 31.9 % 36.0-46.0 L MEAN CELL VOLUME (test code = MCV) 99.7 fL 80-98 H RESULT VERIFIED BY REPEAT ANALYSIS MEAN CELL HGB (test code = MCH) 28.4 picogram 27.0-33.0 N MEAN CELL HGB CONCETRATION (test code = MCHC) 28.5 gram/dL 33.0-36. 0 L RED CELL DISTRIBUTION WIDTH (test code = RDW) 17.3 % 11.6-16. 2 H RED CELL DISTRIBUTION WIDTH SD (test code = RDW-SD) 57.8 fL 37 .0-51.0 H PLATELET COUNT (test code = PLT) 63 K/mm3 150-450 L MEAN PLATELET VOLUME (test code = MPV) 11.3 fL 6.7-11.0 H NEUTROPHIL % (test code = NT%) 64.2 % 39.0-69.0 N IMMATURE GRANULOCYTE % (test code = IG%) 0.3 % 0.0-5.0 N LYMPHOCYTE % (test code = LY%) 17.1 % 25.0-55.0 L MONOCYTE % (test code = MO%) 10.1 % 0.0-10.0 H EOSINOPHIL % (test code = EO%) 7.8 % 0.0-5.0 H BASOPHIL % (test code = BA%) 0.5 % 0.0-1.0 N NUCLEATED RBC % (test code = NRBC%) 0.0 % 0-0 N NEUTROPHIL # (test code = NT#) 2.49 K/mm3 1.8-7.7 N IMMATURE GRANULOCYTE # (test code = IG#) 0.01 x10 3/uL 0-0.03 N LYMPHOCYTE # (test code = LY#) 0.66 K/mm3 1.0-5.0 L MONOCYTE # (test code = MO#) 0.39 K/mm3 0-0.8 N EOSINOPHIL # (test code = EO#) 0.30 K/mm3 0.0-0.5 N BASOPHIL # (test code = BA#) 0.02 K/mm3 0.0-0.2 N NUCLEATED RBC # (test code = NRBC#) 0.00 K/mm3 0.0-0.1 N MANUAL DIFF REQUIRED (test code = MDIFF) NO, ONLY SCAN NEEDED DIFFERENTIAL [id number] 17:38:00* Test Item Value Reference Range Interpretation Comments STAIN ACCEPTABILITY (test code = STN ACCEPTABLE) CABOT RINGS (test code = CAB) MORPHOLOGY COMMENT (test code = MOC) PLATELET ESTIMATE (test code = PLTEST) PLATELET MORPHOLOGY (test code = PLTMORPH) CBC W/AUTO [id number] 17:38:00* Test Item Value Reference Range Interpretation Comments WHITE BLOOD CELL (test code = WBC) 3.9 K/mm3 4.5-12.5 L RED BLOOD CELL (test code = RBC) 3.20 mill/mm3 3.7-5.2 L HEMOGLOBIN (test code = HGB) 9.1 gram/dL 11.5-15.5 L HEMATOCRIT (test code = HCT) 31.9 % 36.0-46.0 L MEAN CELL VOLUME (test code = MCV) 99.7 fL 80-98 H RESULT VERIFIED BY REPEAT ANALYSIS MEAN CELL HGB (test code = MCH) 28.4 picogram 27.0-33.0 N MEAN CELL HGB CONCETRATION (test code = MCHC) 28.5 gram/dL 33.0-36. 0 L RED CELL DISTRIBUTION WIDTH (test code = RDW) 17.3 % 11.6-16. 2 H RED CELL DISTRIBUTION WIDTH SD (test code = RDW-SD) 57.8 fL 37 .0-51.0 H PLATELET COUNT (test code = PLT) 63 K/mm3 150-450 L MEAN PLATELET VOLUME (test code = MPV) 11.3 fL 6.7-11.0 H NEUTROPHIL % (test code = NT%) 64.2 % 39.0-69.0 N IMMATURE GRANULOCYTE % (test code = IG%) 0.3 % 0.0-5.0 N LYMPHOCYTE % (test code = LY%) 17.1 % 25.0-55.0 L MONOCYTE % (test code = MO%) 10.1 % 0.0-10.0 H EOSINOPHIL % (test code = EO%) 7.8 % 0.0-5.0 H BASOPHIL % (test code = BA%) 0.5 % 0.0-1.0 N NUCLEATED RBC % (test code = NRBC%) 0.0 % 0-0 N NEUTROPHIL # (test code = NT#) 2.49 K/mm3 1.8-7.7 N IMMATURE GRANULOCYTE # (test code = IG#) 0.01 x10 3/uL 0-0.03 N LYMPHOCYTE # (test code = LY#) 0.66 K/mm3 1.0-5.0 L MONOCYTE # (test code = MO#) 0.39 K/mm3 0-0.8 N EOSINOPHIL # (test code = EO#) 0.30 K/mm3 0.0-0.5 N BASOPHIL # (test code = BA#) 0.02 K/mm3 0.0-0.2 N NUCLEATED RBC # (test code = NRBC#) 0.00 K/mm3 0.0-0.1 N MANUAL DIFF REQUIRED (test code = MDIFF) NO, ONLY SCAN NEEDED DIFFERENTIAL [id number] 17:38:00* Test Item Value Reference Range Interpretation Comments STAIN ACCEPTABILITY (test code = STN ACCEPTABLE) CABOT RINGS (test code = CAB) MORPHOLOGY COMMENT (test code = MOC) PLATELET ESTIMATE (test code = PLTEST) PLATELET MORPHOLOGY (test code = PLTMORPH) CBC W/AUTO [id number] 17:38:00* Test Item Value Reference Range Interpretation Comments WHITE BLOOD CELL (test code = WBC) 3.9 K/mm3 4.5-12.5 L RED BLOOD CELL (test code = RBC) 3.20 mill/mm3 3.7-5.2 L HEMOGLOBIN (test code = HGB) 9.1 gram/dL 11.5-15.5 L HEMATOCRIT (test code = HCT) 31.9 % 36.0-46.0 L MEAN CELL VOLUME (test code = MCV) 99.7 fL 80-98 H RESULT VERIFIED BY REPEAT ANALYSIS MEAN CELL HGB (test code = MCH) 28.4 picogram 27.0-33.0 N MEAN CELL HGB CONCETRATION (test code = MCHC) 28.5 gram/dL 33.0-36. 0 L RED CELL DISTRIBUTION WIDTH (test code = RDW) 17.3 % 11.6-16. 2 H RED CELL DISTRIBUTION WIDTH SD (test code = RDW-SD) 57.8 fL 37 .0-51.0 H PLATELET COUNT (test code = PLT) 63 K/mm3 150-450 L MEAN PLATELET VOLUME (test code = MPV) 11.3 fL 6.7-11.0 H NEUTROPHIL % (test code = NT%) 64.2 % 39.0-69.0 N IMMATURE GRANULOCYTE % (test code = IG%) 0.3 % 0.0-5.0 N LYMPHOCYTE % (test code = LY%) 17.1 % 25.0-55.0 L MONOCYTE % (test code = MO%) 10.1 % 0.0-10.0 H EOSINOPHIL % (test code = EO%) 7.8 % 0.0-5.0 H BASOPHIL % (test code = BA%) 0.5 % 0.0-1.0 N NUCLEATED RBC % (test code = NRBC%) 0.0 % 0-0 N NEUTROPHIL # (test code = NT#) 2.49 K/mm3 1.8-7.7 N IMMATURE GRANULOCYTE # (test code = IG#) 0.01 x10 3/uL 0-0.03 N LYMPHOCYTE # (test code = LY#) 0.66 K/mm3 1.0-5.0 L MONOCYTE # (test code = MO#) 0.39 K/mm3 0-0.8 N EOSINOPHIL # (test code = EO#) 0.30 K/mm3 0.0-0.5 N BASOPHIL # (test code = BA#) 0.02 K/mm3 0.0-0.2 N NUCLEATED RBC # (test code = NRBC#) 0.00 K/mm3 0.0-0.1 N MANUAL DIFF REQUIRED (test code = MDIFF) NO, ONLY SCAN NEEDED DIFFERENTIAL [id number] 17:38:00* Test Item Value Reference Range Interpretation Comments STAIN ACCEPTABILITY (test code = STN ACCEPTABLE) MORPHOLOGY COMMENT (test code = MOC) PLATELET ESTIMATE (test code = PLTEST) PLATELET MORPHOLOGY (test code = PLTMORPH) CBC W/AUTO [id number] 17:38:00* Test Item Value Reference Range Interpretation Comments WHITE BLOOD CELL (test code = WBC) 3.9 K/mm3 4.5-12.5 L RED BLOOD CELL (test code = RBC) 3.20 mill/mm3 3.7-5.2 L HEMOGLOBIN (test code = HGB) 9.1 gram/dL 11.5-15.5 L HEMATOCRIT (test code = HCT) 31.9 % 36.0-46.0 L MEAN CELL VOLUME (test code = MCV) 99.7 fL 80-98 H RESULT VERIFIED BY REPEAT ANALYSIS MEAN CELL HGB (test code = MCH) 28.4 picogram 27.0-33.0 N MEAN CELL HGB CONCETRATION (test code = MCHC) 28.5 gram/dL 33.0-36. 0 L RED CELL DISTRIBUTION WIDTH (test code = RDW) 17.3 % 11.6-16. 2 H RED CELL DISTRIBUTION WIDTH SD (test code = RDW-SD) 57.8 fL 37 .0-51.0 H PLATELET COUNT (test code = PLT) 63 K/mm3 150-450 L MEAN PLATELET VOLUME (test code = MPV) 11.3 fL 6.7-11.0 H NEUTROPHIL % (test code = NT%) 64.2 % 39.0-69.0 N IMMATURE GRANULOCYTE % (test code = IG%) 0.3 % 0.0-5.0 N LYMPHOCYTE % (test code = LY%) 17.1 % 25.0-55.0 L MONOCYTE % (test code = MO%) 10.1 % 0.0-10.0 H EOSINOPHIL % (test code = EO%) 7.8 % 0.0-5.0 H BASOPHIL % (test code = BA%) 0.5 % 0.0-1.0 N NUCLEATED RBC % (test code = NRBC%) 0.0 % 0-0 N NEUTROPHIL # (test code = NT#) 2.49 K/mm3 1.8-7.7 N IMMATURE GRANULOCYTE # (test code = IG#) 0.01 x10 3/uL 0-0.03 N LYMPHOCYTE # (test code = LY#) 0.66 K/mm3 1.0-5.0 L MONOCYTE # (test code = MO#) 0.39 K/mm3 0-0.8 N EOSINOPHIL # (test code = EO#) 0.30 K/mm3 0.0-0.5 N BASOPHIL # (test code = BA#) 0.02 K/mm3 0.0-0.2 N NUCLEATED RBC # (test code = NRBC#) 0.00 K/mm3 0.0-0.1 N MANUAL DIFF REQUIRED (test code = MDIFF) NO, ONLY SCAN NEEDED DIFFERENTIAL [id number] 17:38:00* Test Item Value Reference Range Interpretation Comments STAIN ACCEPTABILITY (test code = STN ACCEPTABLE) CABOT RINGS (test code = CAB) MORPHOLOGY COMMENT (test code = MOC) PLATELET ESTIMATE (test code = PLTEST) PLATELET MORPHOLOGY (test code = PLTMORPH) [id number] 15:22:00* Test Item Value Reference Range Interpretation Comments FERRITIN (test code = NGUYỄN) 22 ng/mL 8-388 N [id number] 15:09:00* Test Item Value Reference Range Interpretation Comments GLUBED (test code = GLUBED) 133 mg/dL 74-106 H Performed by certified collar turner operator at [facility] [id number] 11:43:00* Test Item Value Reference Range Interpretation Comments GLUBED (test code = GLUBED) 168 mg/dL 74-106 H Performed by certified collar turner operator at [facility] [id number] 07:31:00* Test Item Value Reference Range Interpretation Comments GLUBED (test code = GLUBED) 90 mg/dL 74-106 N Performed by certified collar turner operator at [facility] [id number] 20:42:00* Test Item Value Reference Range Interpretation Comments GLUBED (test code = GLUBED) 157 mg/dL 74-106 H Performed by certified collar turner operator at [facility] [id number] 20:30:00* Test Item Value Reference Range Interpretation Comments GLUBED (test code = GLUBED) 116 mg/dL 74-106 H Performed by certified collar turner operator at [facility] [id number] 11:22:00* Test Item Value Reference Range Interpretation Comments GLUBED (test code = GLUBED) 147 mg/dL 74-106 H Performed by certified collar turner operator at [facility] CBC W/AUTO [id number] 04:23:00* Test Item Value Reference Range Interpretation Comments WHITE BLOOD CELL (test code = WBC) 3.8 K/mm3 4.5-12.5 L RED BLOOD CELL (test code = RBC) 3.02 mill/mm3 3.7-5.2 L HEMOGLOBIN (test code = HGB) 8.3 gram/dL 11.5-15.5 L HEMATOCRIT (test code = HCT) 26.8 % 36.0-46.0 L MEAN CELL VOLUME (test code = MCV) 88.7 fL 80-98 N MEAN CELL HGB (test code = MCH) 27.5 picogram 27.0-33.0 N MEAN CELL HGB CONCETRATION (test code = MCHC) 31.0 gram/dL 33.0-36. 0 L RED CELL DISTRIBUTION WIDTH (test code = RDW) 15.9 % 11.6-16. 2 N RED CELL DISTRIBUTION WIDTH SD (test code = RDW-SD) 50.4 fL 37 .0-51.0 N PLATELET COUNT (test code = PLT) 67 K/mm3 150-450 L MEAN PLATELET VOLUME (test code = MPV) 11.5 fL 6.7-11.0 H NEUTROPHIL % (test code = NT%) 69.9 % 39.0-69.0 H IMMATURE GRANULOCYTE % (test code = IG%) 0.3 % 0.0-5.0 N LYMPHOCYTE % (test code = LY%) 15.7 % 25.0-55.0 L MONOCYTE % (test code = MO%) 7.6 % 0.0-10.0 N EOSINOPHIL % (test code = EO%) 6.0 % 0.0-5.0 H BASOPHIL % (test code = BA%) 0.5 % 0.0-1.0 N NUCLEATED RBC % (test code = NRBC%) 0.0 % 0-0 N NEUTROPHIL # (test code = NT#) 2.67 K/mm3 1.8-7.7 N IMMATURE GRANULOCYTE # (test code = IG#) 0.01 x10 3/uL 0-0.03 N LYMPHOCYTE # (test code = LY#) 0.60 K/mm3 1.0-5.0 L MONOCYTE # (test code = MO#) 0.29 K/mm3 0-0.8 N EOSINOPHIL # (test code = EO#) 0.23 K/mm3 0.0-0.5 N BASOPHIL # (test code = BA#) 0.02 K/mm3 0.0-0.2 N NUCLEATED RBC # (test code = NRBC#) 0.00 K/mm3 0.0-0.1 N MANUAL DIFF REQUIRED (test code = MDIFF) NO, ONLY SCAN NEEDED DIFFERENTIAL [id number] 04:23:00* Test Item Value Reference Range Interpretation Comments STAIN ACCEPTABILITY (test code = STN ACCEPTABLE) STAIN ACCEPTABLE POLYCHROMASIA (test code = POLC) 1+ ELLIPTOCYTES (test code = ELL) 1+ PLATELET ESTIMATE (test code = PLTEST) DECREASED PLATELET MORPHOLOGY (test code = PLTMORPH) NORMAL BASIC METABOLIC [id number] 04:22:00* Test Item Value Reference Range Interpretation Comments SODIUM (test code = NA) 143 mmol/L 136-145 N POTASSIUM (test code = K) 3.5 mmol/L 3.5-5.1 N CHLORIDE (test code = CL) 109.0 mmol/L 98-107 H CARBON DIOXIDE (test code = CO2) 31.0 mmol/L 21-32 N ANION GAP (test code = GAP) 6.5 10-20 L GLUCOSE (test code = GLU) 100 mg/dL 74-106 N BLOOD UREA NITROGEN (test code = BUN) 9 mg/dL 7-18 N GLOMERULAR FILTRATION RATE (test code = GFR) > 60 mL/min >=60 Estimated GFR by using Modified MDRD formula.Chronic kidney disease is defined as either kidney damageor GFR <60 mL/min/1.73 m2 for >3 months. CREATININE (test code = CREAT) 0.80 mg/dL 0.55-1.02 N Note change in reference range due to change in reagent. BUN/CREATININE RATIO (test code = BUN/CREA) 11.7 10-20 N CALCIUM (test code = CA) 7.8 mg/dL 8.5-10.1 L [id number] 04:22:00* Test Item Value Reference Range Interpretation Comments PHOSPHORUS (test code = PHOS) 2.2 mg/dL 2.5-4.9 L [id number] 04:22:00* Test Item Value Reference Range Interpretation Comments MAGNESIUM (test code = MAG) 2.0 mg/dL 1.8-2.4 N CALCIUM [id number] 04:22:00* Test Item Value Reference Range Interpretation Comments CALCIUM IONIZED (test code = CARYN) 1.18 mmol/L 1.12-1.32 N BASIC METABOLIC [id number] 03:28:00* Test Item Value Reference Range Interpretation Comments SODIUM (test code = NA) 143 mmol/L 136-145 N POTASSIUM (test code = K) 3.5 mmol/L 3.5-5.1 N CHLORIDE (test code = CL) 109.0 mmol/L 98-107 H CARBON DIOXIDE (test code = CO2) 31.0 mmol/L 21-32 N ANION GAP (test code = GAP) 6.5 10-20 L GLUCOSE (test code = GLU) 100 mg/dL 74-106 N BLOOD UREA NITROGEN (test code = BUN) 9 mg/dL 7-18 N GLOMERULAR FILTRATION RATE (test code = GFR) > 60 mL/min >=60 Estimated GFR by using Modified MDRD formula.Chronic kidney disease is defined as either kidney damageor GFR <60 mL/min/1.73 m2 for >3 months. CREATININE (test code = CREAT) 0.80 mg/dL 0.55-1.02 N Note change in reference range due to change in reagent. BUN/CREATININE RATIO (test code = BUN/CREA) 11.7 10-20 N CALCIUM (test code = CA) 7.8 mg/dL 8.5-10.1 L [id number] 03:28:00* Test Item Value Reference Range Interpretation Comments PHOSPHORUS (test code = PHOS) 2.2 mg/dL 2.5-4.9 L [id number] 03:28:00* Test Item Value Reference Range Interpretation Comments MAGNESIUM (test code = MAG) 2.0 mg/dL 1.8-2.4 N CALCIUM [id number] 03:28:00* Test Item Value Reference Range Interpretation Comments CALCIUM IONIZED (test code = CARYN) mmol/L 1.12-1.32 BASIC METABOLIC [id number] 03:21:00* Test Item Value Reference Range Interpretation Comments SODIUM (test code = NA) 143 mmol/L 136-145 N POTASSIUM (test code = K) 3.5 mmol/L 3.5-5.1 N CHLORIDE (test code = CL) 109.0 mmol/L 98-107 H CARBON DIOXIDE (test code = CO2) mmol/L 21-32 ANION GAP (test code = GAP) 10-20 GLUCOSE (test code = GLU) mg/dL 74-106 BLOOD UREA NITROGEN (test code = BUN) mg/dL 7-18 GLOMERULAR FILTRATION RATE (test code = GFR) mL/min >=60 CREATININE (test code = CREAT) mg/dL 0.55-1.02 BUN/CREATININE RATIO (test code = BUN/CREA) 10-20 CALCIUM (test code = CA) mg/dL 8.5-10.1 [id number] 03:21:00* Test Item Value Reference Range Interpretation Comments PHOSPHORUS (test code = PHOS) mg/dL 2.5-4.9 [id number] 03:21:00* Test Item Value Reference Range Interpretation Comments MAGNESIUM (test code = MAG) mg/dL 1.8-2.4 CALCIUM [id number] 03:21:00* Test Item Value Reference Range Interpretation Comments CALCIUM IONIZED (test code = CARYN) mmol/L 1.12-1.32 CBC W/AUTO [id number] 02:59:00* Test Item Value Reference Range Interpretation Comments WHITE BLOOD CELL (test code = WBC) 3.8 K/mm3 4.5-12.5 L RED BLOOD CELL (test code = RBC) 3.02 mill/mm3 3.7-5.2 L HEMOGLOBIN (test code = HGB) 8.3 gram/dL 11.5-15.5 L HEMATOCRIT (test code = HCT) 26.8 % 36.0-46.0 L MEAN CELL VOLUME (test code = MCV) 88.7 fL 80-98 N MEAN CELL HGB (test code = MCH) 27.5 picogram 27.0-33.0 N MEAN CELL HGB CONCETRATION (test code = MCHC) 31.0 gram/dL 33.0-36. 0 L RED CELL DISTRIBUTION WIDTH (test code = RDW) 15.9 % 11.6-16. 2 N RED CELL DISTRIBUTION WIDTH SD (test code = RDW-SD) 50.4 fL 37 .0-51.0 N PLATELET COUNT (test code = PLT) 67 K/mm3 150-450 L MEAN PLATELET VOLUME (test code = MPV) 11.5 fL 6.7-11.0 H NEUTROPHIL % (test code = NT%) 69.9 % 39.0-69.0 H IMMATURE GRANULOCYTE % (test code = IG%) 0.3 % 0.0-5.0 N LYMPHOCYTE % (test code = LY%) 15.7 % 25.0-55.0 L MONOCYTE % (test code = MO%) 7.6 % 0.0-10.0 N EOSINOPHIL % (test code = EO%) 6.0 % 0.0-5.0 H BASOPHIL % (test code = BA%) 0.5 % 0.0-1.0 N NUCLEATED RBC % (test code = NRBC%) 0.0 % 0-0 N NEUTROPHIL # (test code = NT#) 2.67 K/mm3 1.8-7.7 N IMMATURE GRANULOCYTE # (test code = IG#) 0.01 x10 3/uL 0-0.03 N LYMPHOCYTE # (test code = LY#) 0.60 K/mm3 1.0-5.0 L MONOCYTE # (test code = MO#) 0.29 K/mm3 0-0.8 N EOSINOPHIL # (test code = EO#) 0.23 K/mm3 0.0-0.5 N BASOPHIL # (test code = BA#) 0.02 K/mm3 0.0-0.2 N NUCLEATED RBC # (test code = NRBC#) 0.00 K/mm3 0.0-0.1 N MANUAL DIFF REQUIRED (test code = MDIFF) NO, ONLY SCAN NEEDED DIFFERENTIAL [id number] 02:59:00* Test Item Value Reference Range Interpretation Comments STAIN ACCEPTABILITY (test code = STN ACCEPTABLE) CABOT RINGS (test code = CAB) MORPHOLOGY COMMENT (test code = MOC) PLATELET ESTIMATE (test code = PLTEST) PLATELET MORPHOLOGY (test code = PLTMORPH) CBC W/AUTO [id number] 02:59:00* Test Item Value Reference Range Interpretation Comments WHITE BLOOD CELL (test code = WBC) 3.8 K/mm3 4.5-12.5 L RED BLOOD CELL (test code = RBC) 3.02 mill/mm3 3.7-5.2 L HEMOGLOBIN (test code = HGB) 8.3 gram/dL 11.5-15.5 L HEMATOCRIT (test code = HCT) 26.8 % 36.0-46.0 L MEAN CELL VOLUME (test code = MCV) 88.7 fL 80-98 N MEAN CELL HGB (test code = MCH) 27.5 picogram 27.0-33.0 N MEAN CELL HGB CONCETRATION (test code = MCHC) 31.0 gram/dL 33.0-36. 0 L RED CELL DISTRIBUTION WIDTH (test code = RDW) 15.9 % 11.6-16. 2 N RED CELL DISTRIBUTION WIDTH SD (test code = RDW-SD) 50.4 fL 37 .0-51.0 N PLATELET COUNT (test code = PLT) 67 K/mm3 150-450 L MEAN PLATELET VOLUME (test code = MPV) 11.5 fL 6.7-11.0 H NEUTROPHIL % (test code = NT%) 69.9 % 39.0-69.0 H IMMATURE GRANULOCYTE % (test code = IG%) 0.3 % 0.0-5.0 N LYMPHOCYTE % (test code = LY%) 15.7 % 25.0-55.0 L MONOCYTE % (test code = MO%) 7.6 % 0.0-10.0 N EOSINOPHIL % (test code = EO%) 6.0 % 0.0-5.0 H BASOPHIL % (test code = BA%) 0.5 % 0.0-1.0 N NUCLEATED RBC % (test code = NRBC%) 0.0 % 0-0 N NEUTROPHIL # (test code = NT#) 2.67 K/mm3 1.8-7.7 N IMMATURE GRANULOCYTE # (test code = IG#) 0.01 x10 3/uL 0-0.03 N LYMPHOCYTE # (test code = LY#) 0.60 K/mm3 1.0-5.0 L MONOCYTE # (test code = MO#) 0.29 K/mm3 0-0.8 N EOSINOPHIL # (test code = EO#) 0.23 K/mm3 0.0-0.5 N BASOPHIL # (test code = BA#) 0.02 K/mm3 0.0-0.2 N NUCLEATED RBC # (test code = NRBC#) 0.00 K/mm3 0.0-0.1 N MANUAL DIFF REQUIRED (test code = MDIFF) NO, ONLY SCAN NEEDED DIFFERENTIAL [id number] 02:59:00* Test Item Value Reference Range Interpretation Comments STAIN ACCEPTABILITY (test code = STN ACCEPTABLE) CABOT RINGS (test code = CAB) MORPHOLOGY COMMENT (test code = MOC) PLATELET ESTIMATE (test code = PLTEST) PLATELET MORPHOLOGY (test code = PLTMORPH) CBC W/AUTO [id number] 02:59:00* Test Item Value Reference Range Interpretation Comments WHITE BLOOD CELL (test code = WBC) 3.8 K/mm3 4.5-12.5 L RED BLOOD CELL (test code = RBC) 3.02 mill/mm3 3.7-5.2 L HEMOGLOBIN (test code = HGB) 8.3 gram/dL 11.5-15.5 L HEMATOCRIT (test code = HCT) 26.8 % 36.0-46.0 L MEAN CELL VOLUME (test code = MCV) 88.7 fL 80-98 N MEAN CELL HGB (test code = MCH) 27.5 picogram 27.0-33.0 N MEAN CELL HGB CONCETRATION (test code = MCHC) 31.0 gram/dL 33.0-36. 0 L RED CELL DISTRIBUTION WIDTH (test code = RDW) 15.9 % 11.6-16. 2 N RED CELL DISTRIBUTION WIDTH SD (test code = RDW-SD) 50.4 fL 37 .0-51.0 N PLATELET COUNT (test code = PLT) 67 K/mm3 150-450 L MEAN PLATELET VOLUME (test code = MPV) 11.5 fL 6.7-11.0 H NEUTROPHIL % (test code = NT%) 69.9 % 39.0-69.0 H IMMATURE GRANULOCYTE % (test code = IG%) 0.3 % 0.0-5.0 N LYMPHOCYTE % (test code = LY%) 15.7 % 25.0-55.0 L MONOCYTE % (test code = MO%) 7.6 % 0.0-10.0 N EOSINOPHIL % (test code = EO%) 6.0 % 0.0-5.0 H BASOPHIL % (test code = BA%) 0.5 % 0.0-1.0 N NUCLEATED RBC % (test code = NRBC%) 0.0 % 0-0 N NEUTROPHIL # (test code = NT#) 2.67 K/mm3 1.8-7.7 N IMMATURE GRANULOCYTE # (test code = IG#) 0.01 x10 3/uL 0-0.03 N LYMPHOCYTE # (test code = LY#) 0.60 K/mm3 1.0-5.0 L MONOCYTE # (test code = MO#) 0.29 K/mm3 0-0.8 N EOSINOPHIL # (test code = EO#) 0.23 K/mm3 0.0-0.5 N BASOPHIL # (test code = BA#) 0.02 K/mm3 0.0-0.2 N NUCLEATED RBC # (test code = NRBC#) 0.00 K/mm3 0.0-0.1 N MANUAL DIFF REQUIRED (test code = MDIFF) NO, ONLY SCAN NEEDED DIFFERENTIAL [id number] 02:59:00* Test Item Value Reference Range Interpretation Comments STAIN ACCEPTABILITY (test code = STN ACCEPTABLE) MORPHOLOGY COMMENT (test code = MOC) PLATELET ESTIMATE (test code = PLTEST) PLATELET MORPHOLOGY (test code = PLTMORPH) CBC W/AUTO [id number] 02:59:00* Test Item Value Reference Range Interpretation Comments WHITE BLOOD CELL (test code = WBC) 3.8 K/mm3 4.5-12.5 L RED BLOOD CELL (test code = RBC) 3.02 mill/mm3 3.7-5.2 L HEMOGLOBIN (test code = HGB) 8.3 gram/dL 11.5-15.5 L HEMATOCRIT (test code = HCT) 26.8 % 36.0-46.0 L MEAN CELL VOLUME (test code = MCV) 88.7 fL 80-98 N MEAN CELL HGB (test code = MCH) 27.5 picogram 27.0-33.0 N MEAN CELL HGB CONCETRATION (test code = MCHC) 31.0 gram/dL 33.0-36. 0 L RED CELL DISTRIBUTION WIDTH (test code = RDW) 15.9 % 11.6-16. 2 N RED CELL DISTRIBUTION WIDTH SD (test code = RDW-SD) 50.4 fL 37 .0-51.0 N PLATELET COUNT (test code = PLT) 67 K/mm3 150-450 L MEAN PLATELET VOLUME (test code = MPV) 11.5 fL 6.7-11.0 H NEUTROPHIL % (test code = NT%) 69.9 % 39.0-69.0 H IMMATURE GRANULOCYTE % (test code = IG%) 0.3 % 0.0-5.0 N LYMPHOCYTE % (test code = LY%) 15.7 % 25.0-55.0 L MONOCYTE % (test code = MO%) 7.6 % 0.0-10.0 N EOSINOPHIL % (test code = EO%) 6.0 % 0.0-5.0 H BASOPHIL % (test code = BA%) 0.5 % 0.0-1.0 N NUCLEATED RBC % (test code = NRBC%) 0.0 % 0-0 N NEUTROPHIL # (test code = NT#) 2.67 K/mm3 1.8-7.7 N IMMATURE GRANULOCYTE # (test code = IG#) 0.01 x10 3/uL 0-0.03 N LYMPHOCYTE # (test code = LY#) 0.60 K/mm3 1.0-5.0 L MONOCYTE # (test code = MO#) 0.29 K/mm3 0-0.8 N EOSINOPHIL # (test code = EO#) 0.23 K/mm3 0.0-0.5 N BASOPHIL # (test code = BA#) 0.02 K/mm3 0.0-0.2 N NUCLEATED RBC # (test code = NRBC#) 0.00 K/mm3 0.0-0.1 N MANUAL DIFF REQUIRED (test code = MDIFF) NO, ONLY SCAN NEEDED DIFFERENTIAL [id number] 02:59:00* Test Item Value Reference Range Interpretation Comments STAIN ACCEPTABILITY (test code = STN ACCEPTABLE) CABOT RINGS (test code = CAB) MORPHOLOGY COMMENT (test code = MOC) PLATELET ESTIMATE (test code = PLTEST) PLATELET MORPHOLOGY (test code = PLTMORPH) HGB [id number] 22:11:00* Test Item Value Reference Range Interpretation Comments HEMOGLOBIN (test code = HGB) 8.5 gram/dL 11.5-15.5 L HEMATOCRIT (test code = HCT) 28.0 % 36.0-46.0 L [id number] 20:39:00* Test Item Value Reference Range Interpretation Comments GLUBED (test code = GLUBED) 122 mg/dL 74-106 H Performed by certified collar turner operator at [facility] [id number] 16:11:00* Test Item Value Reference Range Interpretation Comments GLUBED (test code = GLUBED) 125 mg/dL 74-106 H Performed by certified collar turner operator at [facility] FE W/TOTAL IRON BINDING CAP.2018-12-09 15:32:00* Test Item Value Reference Range Interpretation Comments SERUM IRON (test code = IRON) 253 ug/dL 50-175 H TOTAL IRON BINDING CAPACITY (test code = TIBC) 329 mcg/dL 250-450 N IRON SATURATION (test code = FESAT) 76.90 % 13-45 H VITAMIN [id number] 15:32:00* Test Item Value Reference Range Interpretation Comments VITAMIN B12 (test code = VITB12) 1411 pg/mL 193-986 H FOLIC [id number] 15:32:00* Test Item Value Reference Range Interpretation Comments FOLIC ACID (test code = FOL) 5.8 ng/mL 3.10-17.50 N CBC W/AUTO [id number] 15:20:00* Test Item Value Reference Range Interpretation Comments WHITE BLOOD CELL (test code = WBC) 3.7 K/mm3 4.5-12.5 L RED BLOOD CELL (test code = RBC) 2.96 mill/mm3 3.7-5.2 L HEMOGLOBIN (test code = HGB) 8.2 gram/dL 11.5-15.5 L HEMATOCRIT (test code = HCT) 26.7 % 36.0-46.0 L MEAN CELL VOLUME (test code = MCV) 90.2 fL 80-98 N MEAN CELL HGB (test code = MCH) 27.7 picogram 27.0-33.0 N MEAN CELL HGB CONCETRATION (test code = MCHC) 30.7 gram/dL 33.0-36. 0 L RED CELL DISTRIBUTION WIDTH (test code = RDW) 16.0 % 11.6-16. 2 N RED CELL DISTRIBUTION WIDTH SD (test code = RDW-SD) 51.8 fL 37 .0-51.0 H PLATELET COUNT (test code = PLT) 66 K/mm3 150-450 L RESULT VERIFIED BY REPEAT ANALYSIS MEAN PLATELET VOLUME (test code = MPV) 11.0 fL 6.7-11.0 N NEUTROPHIL % (test code = NT%) 69.1 % 39.0-69.0 H IMMATURE GRANULOCYTE % (test code = IG%) 0.5 % 0.0-5.0 N LYMPHOCYTE % (test code = LY%) 13.3 % 25.0-55.0 L MONOCYTE % (test code = MO%) 9.5 % 0.0-10.0 N EOSINOPHIL % (test code = EO%) 7.1 % 0.0-5.0 H BASOPHIL % (test code = BA%) 0.5 % 0.0-1.0 N NUCLEATED RBC % (test code = NRBC%) 0.0 % 0-0 N NEUTROPHIL # (test code = NT#) 2.54 K/mm3 1.8-7.7 N IMMATURE GRANULOCYTE # (test code = IG#) 0.02 x10 3/uL 0-0.03 N LYMPHOCYTE # (test code = LY#) 0.49 K/mm3 1.0-5.0 L MONOCYTE # (test code = MO#) 0.35 K/mm3 0-0.8 N EOSINOPHIL # (test code = EO#) 0.26 K/mm3 0.0-0.5 N BASOPHIL # (test code = BA#) 0.02 K/mm3 0.0-0.2 N NUCLEATED RBC # (test code = NRBC#) 0.00 K/mm3 0.0-0.1 N [id number] 11:05:00* Test Item Value Reference Range Interpretation Comments GLUBED (test code = GLUBED) 129 mg/dL 74-106 H Performed by certified collar turner operator at [facility] [id number] 08:31:00* Test Item Value Reference Range Interpretation Comments GLUBED (test code = GLUBED) 93 mg/dL 74-106 N Performed by certified collar turner operator at [facility] B-TYPE NATRIURETIC [id number] 06:25:00* Test Item Value Reference Range Interpretation Comments B-TYPE NATRIURETIC PEPTIDE (test code = BNP) 213.89 pgram/mL 0-100 H CBC W/AUTO [id number] 05:07:00* Test Item Value Reference Range Interpretation Comments WHITE BLOOD CELL (test code = WBC) 4.0 K/mm3 4.5-12.5 L RED BLOOD CELL (test code = RBC) 2.97 mill/mm3 3.7-5.2 L HEMOGLOBIN (test code = HGB) 8.5 gram/dL 11.5-15.5 L HEMATOCRIT (test code = HCT) 26.6 % 36.0-46.0 L MEAN CELL VOLUME (test code = MCV) 89.6 fL 80-98 N MEAN CELL HGB (test code = MCH) 28.6 picogram 27.0-33.0 N MEAN CELL HGB CONCETRATION (test code = MCHC) 32.0 gram/dL 33.0-36. 0 L RED CELL DISTRIBUTION WIDTH (test code = RDW) 15.6 % 11.6-16. 2 N RED CELL DISTRIBUTION WIDTH SD (test code = RDW-SD) 49.1 fL 37 .0-51.0 N PLATELET COUNT (test code = PLT) 70 K/mm3 150-450 L MEAN PLATELET VOLUME (test code = MPV) 11.8 fL 6.7-11.0 H NEUTROPHIL % (test code = NT%) 64.1 % 39.0-69.0 N IMMATURE GRANULOCYTE % (test code = IG%) 0.5 % 0.0-5.0 N LYMPHOCYTE % (test code = LY%) 16.0 % 25.0-55.0 L MONOCYTE % (test code = MO%) 11.3 % 0.0-10.0 H EOSINOPHIL % (test code = EO%) 7.3 % 0.0-5.0 H BASOPHIL % (test code = BA%) 0.8 % 0.0-1.0 N NUCLEATED RBC % (test code = NRBC%) 0.0 % 0-0 N NEUTROPHIL # (test code = NT#) 2.57 K/mm3 1.8-7.7 N IMMATURE GRANULOCYTE # (test code = IG#) 0.02 x10 3/uL 0-0.03 N LYMPHOCYTE # (test code = LY#) 0.64 K/mm3 1.0-5.0 L MONOCYTE # (test code = MO#) 0.45 K/mm3 0-0.8 N EOSINOPHIL # (test code = EO#) 0.29 K/mm3 0.0-0.5 N BASOPHIL # (test code = BA#) 0.03 K/mm3 0.0-0.2 N NUCLEATED RBC # (test code = NRBC#) 0.00 K/mm3 0.0-0.1 N MANUAL DIFF REQUIRED (test code = MDIFF) NO, ONLY SCAN NEEDED DIFFERENTIAL [id number] 05:07:00* Test Item Value Reference Range Interpretation Comments STAIN ACCEPTABILITY (test code = STN ACCEPTABLE) STAIN ACCEPTABLE POLYCHROMASIA (test code = POLC) 2+ ANISOCYTOSIS (test code = ANISO) 1+ MORPHOLOGY COMMENT (test code = MOC) NORMAL PLATELET ESTIMATE (test code = PLTEST) DECREASED PLATELET MORPHOLOGY (test code = PLTMORPH) NORMAL RETICULOCYTE [id number] 05:07:00* Test Item Value Reference Range Interpretation Comments RETICULOCYTE COUNT (test code = RETICT) 3.6 % 0.5-2.0 H RETIC COUNT ABSOLUTE (test code = RET#) 0.107 mill/mm3 0.016-0.095 H IMMATURE RETICULOCYTE FRACTION (test code = IRF) 32.7 % 3.0-1 5.9 H Values above normal range indicate an increase in RBCcellular response from bone marrow. RETICULOCYTE HGB EQUIVALENT (test code = RETHE) 20.1 pg 28.2-3 5.7 L RET-He is a direct estimate of recent functionalavailability of iron in the cell, therefore, decreasedRET-He is indicative of iron deficiency. COMPREHENSIVE METABOLIC [id number] 05:01:00* Test Item Value Reference Range Interpretation Comments SODIUM (test code = NA) 141 mmol/L 136-145 N POTASSIUM (test code = K) 3.6 mmol/L 3.5-5.1 N CHLORIDE (test code = CL) 106.0 mmol/L 98-107 N CARBON DIOXIDE (test code = CO2) 29.0 mmol/L 21-32 N ANION GAP (test code = GAP) 9.6 10-20 L GLUCOSE (test code = GLU) 121 mg/dL 74-106 H BLOOD UREA NITROGEN (test code = BUN) 14 mg/dL 7-18 N GLOMERULAR FILTRATION RATE (test code = GFR) 55 mL/min >=60 Estimated GFR by using Modified MDRD formula.Chronic kidney disease is defined as either kidney damageor GFR <60 mL/min/1.73 m2 for >3 months. CREATININE (test code = CREAT) 1.00 mg/dL 0.55-1.02 N Note change in reference range due to change in reagent. BUN/CREATININE RATIO (test code = BUN/CREA) 13.9 10-20 N TOTAL PROTEIN (test code = PROT) 5.3 gram/dL 6.4-8.2 L ALBUMIN (test code = ALB) 2.1 g/dL 3.4-5.0 L GLOBULIN (test code = GLOB) 3.2 gram/dL 2.7-4.2 N ALBUMIN/GLOBULIN RATIO (test code = A/G) 0.7 0.75-1.50 L CALCIUM (test code = CA) 7.2 mg/dL 8.5-10.1 L BILIRUBIN TOTAL (test code = BILT) 2.90 mg/dL 0.0-1.0 H SGOT/AST (test code = AST) 24 IUnit/L 15-37 N SGPT/ALT (test code = ALT) 15 IUnit/L 12-78 N ALKALINE PHOSPHATASE TOTAL (test code = ALKP) 128 IUnit/L 45-117 H Note change in reference range due to change in reagent. [id number] 05:01:00* Test Item Value Reference Range Interpretation Comments PHOSPHORUS (test code = PHOS) 2.8 mg/dL 2.5-4.9 N [id number] 05:01:00* Test Item Value Reference Range Interpretation Comments MAGNESIUM (test code = MAG) 2.0 mg/dL 1.8-2.4 N CALCIUM [id number] 05:01:00* Test Item Value Reference Range Interpretation Comments CALCIUM IONIZED (test code = CARYN) 1.15 mmol/L 1.12-1.32 N CBC W/AUTO [id number] 04:51:00* Test Item Value Reference Range Interpretation Comments WHITE BLOOD CELL (test code = WBC) 4.0 K/mm3 4.5-12.5 L RED BLOOD CELL (test code = RBC) 2.97 mill/mm3 3.7-5.2 L HEMOGLOBIN (test code = HGB) 8.5 gram/dL 11.5-15.5 L HEMATOCRIT (test code = HCT) 26.6 % 36.0-46.0 L MEAN CELL VOLUME (test code = MCV) 89.6 fL 80-98 N MEAN CELL HGB (test code = MCH) 28.6 picogram 27.0-33.0 N MEAN CELL HGB CONCETRATION (test code = MCHC) 32.0 gram/dL 33.0-36. 0 L RED CELL DISTRIBUTION WIDTH (test code = RDW) 15.6 % 11.6-16. 2 N RED CELL DISTRIBUTION WIDTH SD (test code = RDW-SD) 49.1 fL 37 .0-51.0 N PLATELET COUNT (test code = PLT) 70 K/mm3 150-450 L MEAN PLATELET VOLUME (test code = MPV) 11.8 fL 6.7-11.0 H NEUTROPHIL % (test code = NT%) 64.1 % 39.0-69.0 N IMMATURE GRANULOCYTE % (test code = IG%) 0.5 % 0.0-5.0 N LYMPHOCYTE % (test code = LY%) 16.0 % 25.0-55.0 L MONOCYTE % (test code = MO%) 11.3 % 0.0-10.0 H EOSINOPHIL % (test code = EO%) 7.3 % 0.0-5.0 H BASOPHIL % (test code = BA%) 0.8 % 0.0-1.0 N NUCLEATED RBC % (test code = NRBC%) 0.0 % 0-0 N NEUTROPHIL # (test code = NT#) 2.57 K/mm3 1.8-7.7 N IMMATURE GRANULOCYTE # (test code = IG#) 0.02 x10 3/uL 0-0.03 N LYMPHOCYTE # (test code = LY#) 0.64 K/mm3 1.0-5.0 L MONOCYTE # (test code = MO#) 0.45 K/mm3 0-0.8 N EOSINOPHIL # (test code = EO#) 0.29 K/mm3 0.0-0.5 N BASOPHIL # (test code = BA#) 0.03 K/mm3 0.0-0.2 N NUCLEATED RBC # (test code = NRBC#) 0.00 K/mm3 0.0-0.1 N MANUAL DIFF REQUIRED (test code = MDIFF) NO, ONLY SCAN NEEDED DIFFERENTIAL [id number] 04:51:00* Test Item Value Reference Range Interpretation Comments STAIN ACCEPTABILITY (test code = STN ACCEPTABLE) CABOT RINGS (test code = CAB) MORPHOLOGY COMMENT (test code = MOC) PLATELET ESTIMATE (test code = PLTEST) PLATELET MORPHOLOGY (test code = PLTMORPH) RETICULOCYTE [id number] 04:51:00* Test Item Value Reference Range Interpretation Comments RETICULOCYTE COUNT (test code = RETICT) 3.6 % 0.5-2.0 H RETIC COUNT ABSOLUTE (test code = RET#) 0.107 mill/mm3 0.016-0.095 H IMMATURE RETICULOCYTE FRACTION (test code = IRF) 32.7 % 3.0-1 5.9 H Values above normal range indicate an increase in RBCcellular response from bone marrow. RETICULOCYTE HGB EQUIVALENT (test code = RETHE) 20.1 pg 28.2-3 5.7 L RET-He is a direct estimate of recent functionalavailability of iron in the cell, therefore, decreasedRET-He is indicative of iron deficiency. CBC W/AUTO [id number] 04:51:00* Test Item Value Reference Range Interpretation Comments WHITE BLOOD CELL (test code = WBC) 4.0 K/mm3 4.5-12.5 L RED BLOOD CELL (test code = RBC) 2.97 mill/mm3 3.7-5.2 L HEMOGLOBIN (test code = HGB) 8.5 gram/dL 11.5-15.5 L HEMATOCRIT (test code = HCT) 26.6 % 36.0-46.0 L MEAN CELL VOLUME (test code = MCV) 89.6 fL 80-98 N MEAN CELL HGB (test code = MCH) 28.6 picogram 27.0-33.0 N MEAN CELL HGB CONCETRATION (test code = MCHC) 32.0 gram/dL 33.0-36. 0 L RED CELL DISTRIBUTION WIDTH (test code = RDW) 15.6 % 11.6-16. 2 N RED CELL DISTRIBUTION WIDTH SD (test code = RDW-SD) 49.1 fL 37 .0-51.0 N PLATELET COUNT (test code = PLT) 70 K/mm3 150-450 L MEAN PLATELET VOLUME (test code = MPV) 11.8 fL 6.7-11.0 H NEUTROPHIL % (test code = NT%) 64.1 % 39.0-69.0 N IMMATURE GRANULOCYTE % (test code = IG%) 0.5 % 0.0-5.0 N LYMPHOCYTE % (test code = LY%) 16.0 % 25.0-55.0 L MONOCYTE % (test code = MO%) 11.3 % 0.0-10.0 H EOSINOPHIL % (test code = EO%) 7.3 % 0.0-5.0 H BASOPHIL % (test code = BA%) 0.8 % 0.0-1.0 N NUCLEATED RBC % (test code = NRBC%) 0.0 % 0-0 N NEUTROPHIL # (test code = NT#) 2.57 K/mm3 1.8-7.7 N IMMATURE GRANULOCYTE # (test code = IG#) 0.02 x10 3/uL 0-0.03 N LYMPHOCYTE # (test code = LY#) 0.64 K/mm3 1.0-5.0 L MONOCYTE # (test code = MO#) 0.45 K/mm3 0-0.8 N EOSINOPHIL # (test code = EO#) 0.29 K/mm3 0.0-0.5 N BASOPHIL # (test code = BA#) 0.03 K/mm3 0.0-0.2 N NUCLEATED RBC # (test code = NRBC#) 0.00 K/mm3 0.0-0.1 N MANUAL DIFF REQUIRED (test code = MDIFF) NO, ONLY SCAN NEEDED DIFFERENTIAL [id number] 04:51:00* Test Item Value Reference Range Interpretation Comments STAIN ACCEPTABILITY (test code = STN ACCEPTABLE) CABOT RINGS (test code = CAB) MORPHOLOGY COMMENT (test code = MOC) PLATELET ESTIMATE (test code = PLTEST) PLATELET MORPHOLOGY (test code = PLTMORPH) RETICULOCYTE [id number] 04:51:00* Test Item Value Reference Range Interpretation Comments RETICULOCYTE COUNT (test code = RETICT) 3.6 % 0.5-2.0 H RETIC COUNT ABSOLUTE (test code = RET#) 0.107 mill/mm3 0.016-0.095 H IMMATURE RETICULOCYTE FRACTION (test code = IRF) 32.7 % 3.0-1 5.9 H Values above normal range indicate an increase in RBCcellular response from bone marrow. RETICULOCYTE HGB EQUIVALENT (test code = RETHE) 20.1 pg 28.2-3 5.7 L RET-He is a direct estimate of recent functionalavailability of iron in the cell, therefore, decreasedRET-He is indicative of iron deficiency. CBC W/AUTO [id number] 04:51:00* Test Item Value Reference Range Interpretation Comments WHITE BLOOD CELL (test code = WBC) 4.0 K/mm3 4.5-12.5 L RED BLOOD CELL (test code = RBC) 2.97 mill/mm3 3.7-5.2 L HEMOGLOBIN (test code = HGB) 8.5 gram/dL 11.5-15.5 L HEMATOCRIT (test code = HCT) 26.6 % 36.0-46.0 L MEAN CELL VOLUME (test code = MCV) 89.6 fL 80-98 N MEAN CELL HGB (test code = MCH) 28.6 picogram 27.0-33.0 N MEAN CELL HGB CONCETRATION (test code = MCHC) 32.0 gram/dL 33.0-36. 0 L RED CELL DISTRIBUTION WIDTH (test code = RDW) 15.6 % 11.6-16. 2 N RED CELL DISTRIBUTION WIDTH SD (test code = RDW-SD) 49.1 fL 37 .0-51.0 N PLATELET COUNT (test code = PLT) 70 K/mm3 150-450 L MEAN PLATELET VOLUME (test code = MPV) 11.8 fL 6.7-11.0 H NEUTROPHIL % (test code = NT%) 64.1 % 39.0-69.0 N IMMATURE GRANULOCYTE % (test code = IG%) 0.5 % 0.0-5.0 N LYMPHOCYTE % (test code = LY%) 16.0 % 25.0-55.0 L MONOCYTE % (test code = MO%) 11.3 % 0.0-10.0 H EOSINOPHIL % (test code = EO%) 7.3 % 0.0-5.0 H BASOPHIL % (test code = BA%) 0.8 % 0.0-1.0 N NUCLEATED RBC % (test code = NRBC%) 0.0 % 0-0 N NEUTROPHIL # (test code = NT#) 2.57 K/mm3 1.8-7.7 N IMMATURE GRANULOCYTE # (test code = IG#) 0.02 x10 3/uL 0-0.03 N LYMPHOCYTE # (test code = LY#) 0.64 K/mm3 1.0-5.0 L MONOCYTE # (test code = MO#) 0.45 K/mm3 0-0.8 N EOSINOPHIL # (test code = EO#) 0.29 K/mm3 0.0-0.5 N BASOPHIL # (test code = BA#) 0.03 K/mm3 0.0-0.2 N NUCLEATED RBC # (test code = NRBC#) 0.00 K/mm3 0.0-0.1 N MANUAL DIFF REQUIRED (test code = MDIFF) NO, ONLY SCAN NEEDED DIFFERENTIAL [id number] 04:51:00* Test Item Value Reference Range Interpretation Comments STAIN ACCEPTABILITY (test code = STN ACCEPTABLE) MORPHOLOGY COMMENT (test code = MOC) PLATELET ESTIMATE (test code = PLTEST) PLATELET MORPHOLOGY (test code = PLTMORPH) RETICULOCYTE [id number] 04:51:00* Test Item Value Reference Range Interpretation Comments RETICULOCYTE COUNT (test code = RETICT) 3.6 % 0.5-2.0 H RETIC COUNT ABSOLUTE (test code = RET#) 0.107 mill/mm3 0.016-0.095 H IMMATURE RETICULOCYTE FRACTION (test code = IRF) 32.7 % 3.0-1 5.9 H Values above normal range indicate an increase in RBCcellular response from bone marrow. RETICULOCYTE HGB EQUIVALENT (test code = RETHE) 20.1 pg 28.2-3 5.7 L RET-He is a direct estimate of recent functionalavailability of iron in the cell, therefore, decreasedRET-He is indicative of iron deficiency. CBC W/AUTO [id number] 04:51:00* Test Item Value Reference Range Interpretation Comments WHITE BLOOD CELL (test code = WBC) 4.0 K/mm3 4.5-12.5 L RED BLOOD CELL (test code = RBC) 2.97 mill/mm3 3.7-5.2 L HEMOGLOBIN (test code = HGB) 8.5 gram/dL 11.5-15.5 L HEMATOCRIT (test code = HCT) 26.6 % 36.0-46.0 L MEAN CELL VOLUME (test code = MCV) 89.6 fL 80-98 N MEAN CELL HGB (test code = MCH) 28.6 picogram 27.0-33.0 N MEAN CELL HGB CONCETRATION (test code = MCHC) 32.0 gram/dL 33.0-36. 0 L RED CELL DISTRIBUTION WIDTH (test code = RDW) 15.6 % 11.6-16. 2 N RED CELL DISTRIBUTION WIDTH SD (test code = RDW-SD) 49.1 fL 37 .0-51.0 N PLATELET COUNT (test code = PLT) 70 K/mm3 150-450 L MEAN PLATELET VOLUME (test code = MPV) 11.8 fL 6.7-11.0 H NEUTROPHIL % (test code = NT%) 64.1 % 39.0-69.0 N IMMATURE GRANULOCYTE % (test code = IG%) 0.5 % 0.0-5.0 N LYMPHOCYTE % (test code = LY%) 16.0 % 25.0-55.0 L MONOCYTE % (test code = MO%) 11.3 % 0.0-10.0 H EOSINOPHIL % (test code = EO%) 7.3 % 0.0-5.0 H BASOPHIL % (test code = BA%) 0.8 % 0.0-1.0 N NUCLEATED RBC % (test code = NRBC%) 0.0 % 0-0 N NEUTROPHIL # (test code = NT#) 2.57 K/mm3 1.8-7.7 N IMMATURE GRANULOCYTE # (test code = IG#) 0.02 x10 3/uL 0-0.03 N LYMPHOCYTE # (test code = LY#) 0.64 K/mm3 1.0-5.0 L MONOCYTE # (test code = MO#) 0.45 K/mm3 0-0.8 N EOSINOPHIL # (test code = EO#) 0.29 K/mm3 0.0-0.5 N BASOPHIL # (test code = BA#) 0.03 K/mm3 0.0-0.2 N NUCLEATED RBC # (test code = NRBC#) 0.00 K/mm3 0.0-0.1 N MANUAL DIFF REQUIRED (test code = MDIFF) NO, ONLY SCAN NEEDED DIFFERENTIAL [id number] 04:51:00* Test Item Value Reference Range Interpretation Comments STAIN ACCEPTABILITY (test code = STN ACCEPTABLE) CABOT RINGS (test code = CAB) MORPHOLOGY COMMENT (test code = MOC) PLATELET ESTIMATE (test code = PLTEST) PLATELET MORPHOLOGY (test code = PLTMORPH) RETICULOCYTE [id number] 04:51:00* Test Item Value Reference Range Interpretation Comments RETICULOCYTE COUNT (test code = RETICT) 3.6 % 0.5-2.0 H RETIC COUNT ABSOLUTE (test code = RET#) 0.107 mill/mm3 0.016-0.095 H IMMATURE RETICULOCYTE FRACTION (test code = IRF) 32.7 % 3.0-1 5.9 H Values above normal range indicate an increase in RBCcellular response from bone marrow. RETICULOCYTE HGB EQUIVALENT (test code = RETHE) 20.1 pg 28.2-3 5.7 L RET-He is a direct estimate of recent functionalavailability of iron in the cell, therefore, decreasedRET-He is indicative of iron deficiency. COMPREHENSIVE METABOLIC [id number] 04:42:00* Test Item Value Reference Range Interpretation Comments SODIUM (test code = NA) mmol/L 136-145 POTASSIUM (test code = K) mmol/L 3.5-5.1 CHLORIDE (test code = CL) mmol/L 98-107 CARBON DIOXIDE (test code = CO2) mmol/L 21-32 ANION GAP (test code = GAP) 10-20 GLUCOSE (test code = GLU) mg/dL 74-106 BLOOD UREA NITROGEN (test code = BUN) mg/dL 7-18 GLOMERULAR FILTRATION RATE (test code = GFR) mL/min >=60 CREATININE (test code = CREAT) mg/dL 0.55-1.02 BUN/CREATININE RATIO (test code = BUN/CREA) 10-20 TOTAL PROTEIN (test code = PROT) gram/dL 6.4-8.2 ALBUMIN (test code = ALB) g/dL 3.4-5.0 GLOBULIN (test code = GLOB) gram/dL 2.7-4.2 ALBUMIN/GLOBULIN RATIO (test code = A/G) 0.75-1.50 CALCIUM (test code = CA) mg/dL 8.5-10.1 BILIRUBIN TOTAL (test code = BILT) mg/dL 0.0-1.0 SGOT/AST (test code = AST) IUnit/L 15-37 SGPT/ALT (test code = ALT) IUnit/L 12-78 ALKALINE PHOSPHATASE TOTAL (test code = ALKP) IUnit/L 45-117 [id number] 04:42:00* Test Item Value Reference Range Interpretation Comments PHOSPHORUS (test code = PHOS) mg/dL 2.5-4.9 [id number] 04:42:00* Test Item Value Reference Range Interpretation Comments MAGNESIUM (test code = MAG) mg/dL 1.8-2.4 CALCIUM [id number] 04:42:00* Test Item Value Reference Range Interpretation Comments CALCIUM IONIZED (test code = CARYN) 1.15 mmol/L 1.12-1.32 N [id number] 04:42:00* Test Item Value Reference Range Interpretation Comments AMMONIA (test code = AMM) 114 umol/L 11-32 H [id number] 20:08:00* Test Item Value Reference Range Interpretation Comments GLUBED (test code = GLUBED) 105 mg/dL 74-106 N Performed by certified collar turner operator at [facility] PLATELET [id number] 19:45:00* Test Item Value Reference Range Interpretation Comments PLATELET COUNT (test code = PLT) 67 K/mm3 150-450 L RESULT VERIFIED BY REPEAT ANALYSIS [id number] 16:33:00* Test Item Value Reference Range Interpretation Comments GLUBED (test code = GLUBED) 132 mg/dL 74-106 H Performed by certified collar turner operator at [facility] HGB [id number] 15:25:00* Test Item Value Reference Range Interpretation Comments HEMOGLOBIN (test code = HGB) 6.7 gram/dL 11.5-15.5 L HEMATOCRIT (test code = HCT) 21.5 % 36.0-46.0 LL Results called to [id number] by V.LAB.LL 12/08/18 1525Critical results verified and read back by Nurse? Y [id number] 15:02:00* Test Item Value Reference Range Interpretation Comments GLUBED (test code = GLUBED) 134 mg/dL 74-106 H Performed by certified collar turner operator at [facility] - CT ABD PELVIS W/O [id number] 14:23:00 Name: ALEX STANTON [facility] : 1950 Age/S: 68 / F [address] [facility] Unit #: [id number] Loc: [place] [address] Phys: Kevin Cutler MD Acct: [id number] Dis Date: Status: ADM IN PHONE #: [phone] Exam Date: 12/08/2018 1255 FAX #: [phone] Reason: ANEMIA, R/O GI BLEED EXAMS: CPT CODE: [id number] CT ABD PELVIS W/O CONT 00010 HISTORY: Anemia and evaluate for GI bleed. COMPARISON: CT scan from August 30, 2018. CT of abdomen and pelvis: Stone protocol. Automated exposure control. CT of abdomen: The lung bases demonstrating dependent changes bilaterally. Cirrhotic nodular shrunken liver without discrete parenchymal mass is being obscured extensively by beam hardening artifact from patient's overlying arms. Patient is post cholecystectomy. The liver measured 13.3 cm in length. The spleen is moderately enlarged at 17 cm in AP direction. Small perisplenic varices visible. The stomach distended incompletely and is limited in evaluation. Small perigastric varices. No periesophageal varices visible on this noncontrast study. Noncontrast pancreas is normal. Adrenals are normal. Kidneys are free from hydroureteronephrosis. No calyceal stones. No pathologic adenopathy. Mild atherosclerotic change of the unopacified abdominal and pelvic vasculature. No bowel obstruction or colitis or di verticulitis or enteritis. Constipation. Small fluid in either paracolic g utter. Moderate perihepatic fluid as well. CT PELVIS: Pelvic bowel loops are unobstructed. Appendix is not visible however no inflammatory changes are noted. Mild sigmoid diverticulosis. Unremarkable urinary bladder. Moderate pelvic free fluid. No free air. No pelvic pathologic adenopathy. Patient is post hysterectomy. Diffu se subcutaneous edema. Fluid collection as well in the subcutaneous tissue s subjacent to the umbilicus. No lytic or blastic lesions are noted within the bony skeleton. DJD. IMPRESSION: PAGE 1 Signed Report (CONTINUED) Name: ALEX STANTON [facility] : 1950 Age/S : 68 / F [address] [facility] Unit #: [id number] Loc: [place] [address] Phys: Kevin Cutler MD Acct: [id number] Dis Date: Status: ADM IN PHONE #: [phone] Exam Date: 12/08/2018 1255 FAX #: [phone] Reason: A NEMIA, R/O GI BLEED EXAMS: CPT CODE: [id number] CT ABD PELVIS W/O CONT 03084 <Continued> Nodular cirrhotic shrunken liver without discrete mass on this noncontrast study with moderate perihepatic fluid. Patient is post cholecystectomy. Mild splenomegaly at 17 cm in length. Perisplenic and perigastric varices barely visible on this noncontrast exam. Moderate ascites. Fluid in the paracolic gutters as well. No bowel obstruction or colitis or diverticulitis or enteritis with mild sigmoid diverticulosis. Appendix is not visible. No overt evidence for hemorrhage. Diffuse subcutaneous edema. at 1423 Reported and signed by: José Miguel Elias M.D. CC: John Lopez; Kevin Cutler MD Technologist:Alexandro Montano RT(R),(MR),(CT) CTDI: DLP: Trnscb Date/Time: 12/08/2018 (1423) t.[email or web address] Orig Print D/T: S: 12/08/2018 (2580) PAGE 2 Signed Report [id number] 14:20:00* Test Item Value Reference Range Interpretation Comments GLYCOSYLATED HEMOGLOBIN (HA1C) (test code = GLYHGB) < 3.5 % HbA1 4. 8-6.0 L ESTIMATED AVERAGE GLUCOSE (test code = EAG) 54 MG/DL PT HARDSTICK COULD NOT AHOLD OF ALEXANDER PÉREZ.SC1 [id number] 12:28:00* Test Item Value Reference Range Interpretation Comments HEMOGLOBIN (test code = HGB) 6.8 gram/dL 11.5-15.5 L RESULT VERIFIED BY REPEAT ANALYSIS HEMATOCRIT (test code = HCT) 22.6 % 36.0-46.0 L [id number] 08:41:00* Test Item Value Reference Range Interpretation Comments GLUBED (test code = GLUBED) 95 mg/dL 74-106 N Performed by certified collar turner operator at [facility] B-TYPE NATRIURETIC [id number] 19:03:00* Test Item Value Reference Range Interpretation Comments B-TYPE NATRIURETIC PEPTIDE (test code = BNP) 201.28 pgram/mL 0-100 H PROTHROMBIN [id number] 18:49:00* Test Item Value Reference Range Interpretation Comments PROTHROMBIN TIME PATIENT (test code = PTP) 14.3 seconds 9.0-14.0 H INTERNATIONAL NORMAL RATIO (test code = INR) 1.2 0.8-1.2 N The therapeutic range for oral anticoagulant therapy [...] (2.5-3.5) IS PATIENT ON ANTICOAGULANTS? NTHROMBOPLASTIN TIME [id number] 18:49:00* Test Item Value Reference Range Interpretation Comments THROMBOPLASTIN TIME PARTIAL (test code = PTT) 31.2 seconds 25.0-36. 5 N IS PATIENT ON ANTICOAGULANTS? NCBC W/O [id number] 18:38:00* Test Item Value Reference Range Interpretation Comments WHITE BLOOD CELL (test code = WBC) 4.3 K/mm3 4.5-12.5 L RED BLOOD CELL (test code = RBC) 1.64 mill/mm3 3.7-5.2 L HEMOGLOBIN (test code = HGB) 4.2 gram/dL 11.5-15.5 L HEMATOCRIT (test code = HCT) 15.0 % 36.0-46.0 Results called to [id number] by [employer]. 12/07/18 1828Critical results verified and read back by Nurse? Y MEAN CELL VOLUME (test code = MCV) 91.5 fL 80-98 N MEAN CELL HGB (test code = MCH) 25.6 picogram 27.0-33.0 L MEAN CELL HGB CONCETRATION (test code = MCHC) 28.0 gram/dL 33.0-36. 0 L RED CELL DISTRIBUTION WIDTH (test code = RDW) 16.2 % 11.6-16. 2 N PLATELET COUNT (test code = PLT) 97 K/mm3 150-450 L MEAN PLATELET VOLUME (test code = MPV) 11.9 fL 6.7-11.0 H BASIC METABOLIC [id number] 18:35:00* Test Item Value Reference Range Interpretation Comments SODIUM (test code = NA) 139 mmol/L 136-145 N POTASSIUM (test code = K) 3.2 mmol/L 3.5-5.1 L CHLORIDE (test code = CL) 103.0 mmol/L 98-107 N CARBON DIOXIDE (test code = CO2) 29.0 mmol/L 21-32 N ANION GAP (test code = GAP) 10.2 10-20 N GLUCOSE (test code = GLU) 81 mg/dL 74-106 N BLOOD UREA NITROGEN (test code = BUN) 15 mg/dL 7-18 N GLOMERULAR FILTRATION RATE (test code = GFR) 37 mL/min >=60 Estimated GFR by using Modified MDRD formula.Chronic kidney disease is defined as either kidney damageor GFR <60 mL/min/1.73 m2 for >3 months. CREATININE (test code = CREAT) 1.40 mg/dL 0.55-1.02 H Note change in reference range due to change in reagent. BUN/CREATININE RATIO (test code = BUN/CREA) 11.1 10-20 N CALCIUM (test code = CA) 7.9 mg/dL 8.5-10.1 L HEPATIC FUNCTION [id number] 18:35:00* Test Item Value Reference Range Interpretation Comments TOTAL PROTEIN (test code = PROT) 5.9 gram/dL 6.4-8.2 L ALBUMIN (test code = ALB) 2.3 g/dL 3.4-5.0 L GLOBULIN (test code = GLOB) 3.6 gram/dL 2.7-4.2 N ALBUMIN/GLOBULIN RATIO (test code = A/G) 0.6 0.75-1.50 L BILIRUBIN TOTAL (test code = BILT) 1.30 mg/dL 0.0-1.0 H BILIRUBIN DIRECT (test code = BILD) 0.69 mg/dL 0.0-0.20 H SGOT/AST (test code = AST) 24 IUnit/L 15-37 N SGPT/ALT (test code = ALT) 17 IUnit/L 12-78 N ALKALINE PHOSPHATASE TOTAL (test code = ALKP) 147 IUnit/L 45-117 H Note change in reference range due to change in reagent. [id number] 18:35:00* Test Item Value Reference Range Interpretation Comments MAGNESIUM (test code = MAG) 2.1 mg/dL 1.8-2.4 N [id number] 18:35:00* Test Item Value Reference Range Interpretation Comments TROPONIN-I (test code = TROPI) <0.015 ng/mL 0-0.045 N [id number] 18:28:00* Test Item Value Reference Range Interpretation Comments AMMONIA (test code = AMM) 74 umol/L 11-32 H BASIC METABOLIC [id number] 18:24:00* Test Item Value Reference Range Interpretation Comments SODIUM (test code = NA) 139 mmol/L 136-145 N POTASSIUM (test code = K) 3.2 mmol/L 3.5-5.1 L CHLORIDE (test code = CL) 103.0 mmol/L 98-107 N CARBON DIOXIDE (test code = CO2) mmol/L 21-32 ANION GAP (test code = GAP) 10-20 GLUCOSE (test code = GLU) mg/dL 74-106 BLOOD UREA NITROGEN (test code = BUN) mg/dL 7-18 GLOMERULAR FILTRATION RATE (test code = GFR) mL/min >=60 CREATININE (test code = CREAT) mg/dL 0.55-1.02 BUN/CREATININE RATIO (test code = BUN/CREA) 10-20 CALCIUM (test code = CA) mg/dL 8.5-10.1 HEPATIC FUNCTION [id number] 18:24:00* Test Item Value Reference Range Interpretation Comments TOTAL PROTEIN (test code = PROT) gram/dL 6.4-8.2 ALBUMIN (test code = ALB) g/dL 3.4-5.0 GLOBULIN (test code = GLOB) gram/dL 2.7-4.2 ALBUMIN/GLOBULIN RATIO (test code = A/G) 0.75-1.50 BILIRUBIN TOTAL (test code = BILT) mg/dL 0.0-1.0 BILIRUBIN DIRECT (test code = BILD) mg/dL 0.0-0.20 SGOT/AST (test code = AST) IUnit/L 15-37 SGPT/ALT (test code = ALT) IUnit/L 12-78 ALKALINE PHOSPHATASE TOTAL (test code = ALKP) IUnit/L 45-117 [id number] 18:24:00* Test Item Value Reference Range Interpretation Comments MAGNESIUM (test code = MAG) mg/dL 1.8-2.4 [id number] 18:24:00* Test Item Value Reference Range Interpretation Comments TROPONIN-I (test code = TROPI) ng/mL 0-0.045 - XR CHEST 1 [id number] 16:55:00 FAX: Elaine Fleming [phone] [place]: [address]: REG Name: ALEX [facility]DRUM [facility] : 09[birth year]18 [birth year] Age/S: 68/F [address] [facility] Unit #: [id number] Loc: [place] [address] Phys: Elaine Golden MD Acct: [id number] Dis Date: Status: REG ER PHONE #: [phone] Exam Date: 12/07/2018 1650 FAX #: [phone] Reason: Shortness of Breath EXAMS: CPT CODE: [id number] XR CHEST 1 V [id number] REASON FOR EXAM: Shortness of Breath Exam Order Date: 12/07/2018 4:16 PM Ordering M.D.: Elaine Golden MD PROCEDURE: - XR CHEST 1 V COMPARISON: Frontal chest x-ray August 29, 2018 FINDINGS: Lung volumes are diminished which causes crowding of the bronchovascular structures. The cardiomediastinal silhouette appears markedly e nlarged however this may be secondary to low lung volumes. M usculoskeletal structures are within normal limits. The visualized upper abdomen is within normal limits. IMPRESSION: Diminished lung volumes with crowding of the bronchovascular structu res. Cardiomegaly is present however this may be a spurious finding secondary to diminished lung volumes. at 1655 Reported and signed by: Dick Junior MD CC: Elaine Golden MD Technologist: SAI GARCIA; RT OKSANA(More) Pranav rnscrd Date/Time/By: 12/07/2018 (1654) : By: [email or web address] Orig Print D/T: S: 12/07/2018 (1658) PAGE 1 Sign ed Report US ABDOMEN [id number] 11:35:00 [place] [address] Patient Name: ALEX STANTON MR #: [id number] : 1950 Age/Sex: 68/F Req #: [id number] Adm Physician: Ordered by: JOHN LOPEZ MD Report #: [id number] Location: Room/Bed: Procedure: [id number] US /US ABDOMEN LIMITED Exam Date: 12/01/18 Exam Time: 1 109 REPORT STATUS: Signed EXAM: Focused Ultrasound Evaluation of the abdomen INDICATION: 110 ASCITES COMPARISON: None TECHNIQUE: Monahan scale image s of the 4 quadrants of the abdomen were obtained. FINDINGS/IMPRESSION: Trace ascites in the right and left upper quadrants, insufficient for safe per formance of paracentesis. Signed by: Mayra Viramontes MD on 12/01/2018 11:37 AM Dictated By: MAYRA VIRAMONTES MD 36 COPY TO: Aaron LOPEZ MD [id number] 07:18:00* Test Item Value Reference Range Interpretation Comments Anisocytosis (test code = 702-1) [facility]IGHT [facility]2019-08-14 07:18:00* Test Item Value Reference Range Interpretation Comments Macrocytosis (test code = 738-5) SLIGHT [facility]valocytes2019-08-14 07:18:00* Test Item Value Reference Range Interpretation Comments Ovalocytes (test code = 774-0) FEW [facility] Cell Morphology [id number] 07:18:00* Test Item Value Reference Range Interpretation Comments Red Cell Morphology Comment (test code = 6742-1) NORMAL [facility]Magnesium [id number] 15:35:00* Test Item Value Reference Range Interpretation Comments Magnesium Level (test code = 20986-3) 1.7 1.3-2.1 [facility] Total Cells Counted 2018-10-09 08:25:00* Test Item Value Reference Range Interpretation Comments Differential Total Cells Counted (test code = Differen tial Total Cells Counted) 100 [facility]Neutrophils % (Manual)2018-10-09 08:25:00 * Test Item Value Reference Range Interpretation Comments Neutrophils % (Manual) (test code = 02838-7) 80 40-74 [facility]ymphocytes % (Manual)2018-10-09 08:25:00 * Test Item Value Reference Range Interpretation Comments Lymphocytes % (Manual) (test code = 737-7) 14 19-48 [facility] % (Manual)2018-10-09 08:25:00* Test Item Value Reference Range Interpretation Comments Monocytes % (Manual) (test code = 744-3) 5 3.4-9.0 [facility]osin[facility] % (Manual)2018-10-09 08:25:00 * Test Item Value Reference Range Interpretation Comments Eosinophils % (Manual) (test code = 714-6) 1 0-7 [facility]Poikilocytosis2019-08-12 08:25:00* Test Item Value Reference Range Interpretation Comments Poikilocytosis (test code = 779-9) SLIGHT [facility]G I [id number] 20:39:00 [facility] [address] [place] [address] Patient Name: ALEX STANTON MR #: [id number] : 1950 Age/Sex: 68/F Req #: [id number] Adm Physician: JOHN LOPEZ MD Ordered by: GERSON MESSINA MD Report #: [id number] Location: MED/SURG2 Room/Bed: [facility] Procedure: 0811-000 1 NM/G I BLEED Exam Date: Exam Time: REPORT STATUS: Signed Tagged-RBC GI Bleed David dy Clinical information: 68-year-old female with severe anemia. Discus jakub: The patient's own red blood cells were labeled with 25 mCi of technetium -99m pertechnetate using the in vitro method (UltraTag). Dynamic images of th e abdomen were obtained through 60 minutes. Distribution of tracer activity appears physiologic throughout the abdomen except that the spleen has an unus ually high uptake of the labeled red blood cells. No abnormal accumulation of tracer is seen within the gastrointestinal lumen. Impression: 1. No scan evidence of active gastrointestinal bleeding at this time. 2. Incre ased uptake of RBC's by the spleen suggests hemolytic anemia or other process of alteration of RBC's. Signed by: Dr. Ellen Long M.D. on 10/08/2018 8: 49 PM Dictated By: ELLEN LONG MD 48 Transcribed By: NIRMALA on 10/08/182048 COPY TO: GERSON ROBLEDO MD CHEST SINGLE (PORTABLE)2018-10-06 20:02:00 [place] [address] Patient Name: ALEX STANTON MR #: [id number] : 1950 Age/Sex: 68/F Req #: [id number] Adm Physician: SHIVA MESSINA MD Ordered by: INGRID ZHENG SLACK LINE YARDER Report #: [id number] Location: [facility] Room/Bed: [place] [address] Procedure: 9 DX/CHEST SINGLE (PORTABLE) Exam Date: 10/06/18 Sonny johnson Time: 1942 REPORT STATUS: Signed Examination: Single AP view of the chest. COMPARISON: CT chest 07/28/2017 INDICATION: AMS, weakness IMPRESSION: 1. Lines and Tubes: None 2. Markedly hypoinflated lungs. No consolidation or effusion. 3. Prom inent cardiac silhouette and central pulmonary vascular crowding due to low alexandrea ng volumes. 4. No acute bony abnormalities. Signed by: Dr. Girma Morris M.D. on 10/06/2018 8:03 PM Dictated By: GIRMA MORRIS MD Elect ronically Signed By: GIRMA MORRIS MD on 10/06/182002 Transcribed By: NIRMALA on 10/06/182002 COPY TO: INGRID ZHENG NP CT BRAIN [id number] 19:55:00 [place] [address] Patient Name: ALEX STANTON MR #: [id number] : 1950 Age/Sex: 68/F Req #: [id number] Adm Physician: SHIVA MESSINA MD Ordered by: INGRID ZHENG NP Report #: [id number] Location: [facility] Room/Bed: [place] [address] Procedure: 808-[address]/CT BRAIN WO Exam Date: 10/06/18 Exam Time: 1942 REPORT STATUS: Signed EXAMINATI ON: Head CT without contrast. HISTORY:Altered mental status. COMP ARISON:None. TECHNIQUE: Multidetector axial images were obtained from the fora men magnum to the vertex without contrast. The images were reconstructed using brain and bone algorithms. Thin section brain images were reformatted into c oronal and sagittal planes. Dose modulation, iterative reconstruction, and/o r weight based adjustment of the mA/kV was utilized to reduce the radiation do se to as low as reasonably achievable. Intravenous contrast: None IMAGE QUALITY: Acceptable. FINDINGS: Skull/scalp: Nonspecific left pa rieto-occipital scalp soft tissue swelling that extends to the right parietal scalp near the vertex. No acute depressed or displaced calvarial fracture. Parenchyma: Nonspecific few, scattered supratentorial white matter hypodens ity are likely related to small vessel ischemic changes. No acute hemorrhage, mass or acute major vascular territorial infarct. Arteries: No density sug gestive of thrombosis. Atherosclerotic calcification in bilateral carotid siph on. Dural sinuses: No abnormal density suggestive of thrombosis. Ventricles: No hydrocephalus or displacement. Extra-axial spaces: No abno rmal density. Brain volume: Mild generalized cerebral volume loss. Craniocervical junction: No mass, Chiari malformation, or basilar invaginatio n. Sella: No mass. Paranasal/mastoid sinuses: Partial opacification of right mastoid air cells. IMPRESSION: 1. Nonspecific moderate left parieto-occipital and right parietal scalp soft tissue swelling may repre sent hematoma if there is clinical history of trauma or represent soft tissue edema and inflammation in appropriate clinical setting. No acute fracture or u nderlying osseous abnormality. 2. No acute intracranial abnormality. 3 . Mild supratentorial white matter microvascular ischemic changes. 4. Mild generalized cerebral volume loss. Signed by: Dr. Porfirio Jordan M.D. on 8:02 PM Dictated By: PORFIRIO JORDAN MD 01 Transcribed By: NIRMALA on 10/06/182001 COPY TO: INGRID ZHENG NP Urine Hyaline [id number] 18:59:00 * Test Item Value Reference Range Interpretation Comments Urine Hyaline Casts (test code = 27245-4) 6-10 0-1 [facility]GLUBED2019-07-08 15:50:00* Test Item Value Reference Range Interpretation Comments GLUBED (test code = GLUBED) 101 mg/dL 74-106 N Performed by certified collar turner operator at [facility] [id number] 11:12:00* Test Item Value Reference Range Interpretation Comments GLUBED (test code = GLUBED) 122 mg/dL 74-106 H Performed by certified collar turner operator at [facility] [id number] 06:48:00* Test Item Value Reference Range Interpretation Comments AMMONIA (test code = AMM) 66 umol/L 11-32 H [id number] 02:29:00* Test Item Value Reference Range Interpretation Comments GLUBED (test code = GLUBED) 99 mg/dL 74-106 N Performed by certified collar turner operator at [facility] [id number] 17:03:00* Test Item Value Reference Range Interpretation Comments GLUBED (test code = GLUBED) 118 mg/dL 74-106 H Performed by certified collar turner operator at [facility] [id number] 17:03:00* Test Item Value Reference Range Interpretation Comments GLUBED (test code = GLUBED) 130 mg/dL 74-106 H Performed by certified collar turner operator at [facility] [id number] 14:21:00* Test Item Value Reference Range Interpretation Comments GLUBED (test code = GLUBED) 127 mg/dL 74-106 H Performed by certified collar turner operator at [facility] [id number] 05:37:00* Test Item Value Reference Range Interpretation Comments GLUBED (test code = GLUBED) 86 mg/dL 74-106 N Performed by certified collar turner operator at [facility] [id number] 17:45:00* Test Item Value Reference Range Interpretation Comments GLUBED (test code = GLUBED) 126 mg/dL 74-106 H Performed by certified collar turner operator at [facility] [id number] 17:45:00* Test Item Value Reference Range Interpretation Comments GLUBED (test code = GLUBED) 94 mg/dL 74-106 N Performed by certified collar turner operator at [facility] CBC W/AUTO [id number] 08:22:00* Test Item Value Reference Range Interpretation Comments WHITE BLOOD CELL (test code = WBC) 5.3 K/mm3 4.5-12.5 N RED BLOOD CELL (test code = RBC) 3.03 mill/mm3 3.7-5.2 L HEMOGLOBIN (test code = HGB) 9.2 gram/dL 11.5-15.5 L HEMATOCRIT (test code = HCT) 30.3 % 36.0-46.0 L MEAN CELL VOLUME (test code = MCV) 100.0 fL 80-98 H MEAN CELL HGB (test code = MCH) 30.4 picogram 27.0-33.0 N MEAN CELL HGB CONCETRATION (test code = MCHC) 30.4 gram/dL 33.0-36. 0 L RED CELL DISTRIBUTION WIDTH (test code = RDW) 16.2 % 11.6-16. 2 N RED CELL DISTRIBUTION WIDTH SD (test code = RDW-SD) 56.1 fL 37 .0-51.0 H PLATELET COUNT (test code = PLT) 71 K/mm3 150-450 L MEAN PLATELET VOLUME (test code = MPV) 11.1 fL 6.7-11.0 H NEUTROPHIL % (test code = NT%) 59.6 % 39.0-69.0 N IMMATURE GRANULOCYTE % (test code = IG%) 0.4 % 0.0-5.0 N LYMPHOCYTE % (test code = LY%) 18.4 % 25.0-55.0 L MONOCYTE % (test code = MO%) 13.8 % 0.0-10.0 H EOSINOPHIL % (test code = EO%) 7.2 % 0.0-5.0 H BASOPHIL % (test code = BA%) 0.6 % 0.0-1.0 N NUCLEATED RBC % (test code = NRBC%) 0.0 % 0-0 N NEUTROPHIL # (test code = NT#) 3.15 K/mm3 1.8-7.7 N IMMATURE GRANULOCYTE # (test code = IG#) 0.02 x10 3/uL 0-0.03 N LYMPHOCYTE # (test code = LY#) 0.97 K/mm3 1.0-5.0 L MONOCYTE # (test code = MO#) 0.73 K/mm3 0-0.8 N EOSINOPHIL # (test code = EO#) 0.38 K/mm3 0.0-0.5 N BASOPHIL # (test code = BA#) 0.03 K/mm3 0.0-0.2 N NUCLEATED RBC # (test code = NRBC#) 0.00 K/mm3 0.0-0.1 N MANUAL DIFF REQUIRED (test code = MDIFF) NO, ONLY SCAN NEEDED DIFFERENTIAL [id number] 08:22:00* Test Item Value Reference Range Interpretation Comments STAIN ACCEPTABILITY (test code = STN ACCEPTABLE) STAIN ACCEPTABLE PLATELET ESTIMATE (test code = PLTEST) DECREASED PLATELET MORPHOLOGY (test code = PLTMORPH) NORMAL CBC W/AUTO [id number] 07:40:00* Test Item Value Reference Range Interpretation Comments WHITE BLOOD CELL (test code = WBC) 5.3 K/mm3 4.5-12.5 N RED BLOOD CELL (test code = RBC) 3.03 mill/mm3 3.7-5.2 L HEMOGLOBIN (test code = HGB) 9.2 gram/dL 11.5-15.5 L HEMATOCRIT (test code = HCT) 30.3 % 36.0-46.0 L MEAN CELL VOLUME (test code = MCV) 100.0 fL 80-98 H MEAN CELL HGB (test code = MCH) 30.4 picogram 27.0-33.0 N MEAN CELL HGB CONCETRATION (test code = MCHC) 30.4 gram/dL 33.0-36. 0 L RED CELL DISTRIBUTION WIDTH (test code = RDW) 16.2 % 11.6-16. 2 N RED CELL DISTRIBUTION WIDTH SD (test code = RDW-SD) 56.1 fL 37 .0-51.0 H PLATELET COUNT (test code = PLT) 71 K/mm3 150-450 L MEAN PLATELET VOLUME (test code = MPV) 11.1 fL 6.7-11.0 H NEUTROPHIL % (test code = NT%) 59.6 % 39.0-69.0 N IMMATURE GRANULOCYTE % (test code = IG%) 0.4 % 0.0-5.0 N LYMPHOCYTE % (test code = LY%) 18.4 % 25.0-55.0 L MONOCYTE % (test code = MO%) 13.8 % 0.0-10.0 H EOSINOPHIL % (test code = EO%) 7.2 % 0.0-5.0 H BASOPHIL % (test code = BA%) 0.6 % 0.0-1.0 N NUCLEATED RBC % (test code = NRBC%) 0.0 % 0-0 N NEUTROPHIL # (test code = NT#) 3.15 K/mm3 1.8-7.7 N IMMATURE GRANULOCYTE # (test code = IG#) 0.02 x10 3/uL 0-0.03 N LYMPHOCYTE # (test code = LY#) 0.97 K/mm3 1.0-5.0 L MONOCYTE # (test code = MO#) 0.73 K/mm3 0-0.8 N EOSINOPHIL # (test code = EO#) 0.38 K/mm3 0.0-0.5 N BASOPHIL # (test code = BA#) 0.03 K/mm3 0.0-0.2 N NUCLEATED RBC # (test code = NRBC#) 0.00 K/mm3 0.0-0.1 N MANUAL DIFF REQUIRED (test code = MDIFF) NO, ONLY SCAN NEEDED DIFFERENTIAL [id number] 07:40:00* Test Item Value Reference Range Interpretation Comments STAIN ACCEPTABILITY (test code = STN ACCEPTABLE) CABOT RINGS (test code = CAB) MORPHOLOGY COMMENT (test code = MOC) PLATELET ESTIMATE (test code = PLTEST) PLATELET MORPHOLOGY (test code = PLTMORPH) CBC W/AUTO [id number] 07:40:00* Test Item Value Reference Range Interpretation Comments WHITE BLOOD CELL (test code = WBC) 5.3 K/mm3 4.5-12.5 N RED BLOOD CELL (test code = RBC) 3.03 mill/mm3 3.7-5.2 L HEMOGLOBIN (test code = HGB) 9.2 gram/dL 11.5-15.5 L HEMATOCRIT (test code = HCT) 30.3 % 36.0-46.0 L MEAN CELL VOLUME (test code = MCV) 100.0 fL 80-98 H MEAN CELL HGB (test code = MCH) 30.4 picogram 27.0-33.0 N MEAN CELL HGB CONCETRATION (test code = MCHC) 30.4 gram/dL 33.0-36. 0 L RED CELL DISTRIBUTION WIDTH (test code = RDW) 16.2 % 11.6-16. 2 N RED CELL DISTRIBUTION WIDTH SD (test code = RDW-SD) 56.1 fL 37 .0-51.0 H PLATELET COUNT (test code = PLT) 71 K/mm3 150-450 L MEAN PLATELET VOLUME (test code = MPV) 11.1 fL 6.7-11.0 H NEUTROPHIL % (test code = NT%) 59.6 % 39.0-69.0 N IMMATURE GRANULOCYTE % (test code = IG%) 0.4 % 0.0-5.0 N LYMPHOCYTE % (test code = LY%) 18.4 % 25.0-55.0 L MONOCYTE % (test code = MO%) 13.8 % 0.0-10.0 H EOSINOPHIL % (test code = EO%) 7.2 % 0.0-5.0 H BASOPHIL % (test code = BA%) 0.6 % 0.0-1.0 N NUCLEATED RBC % (test code = NRBC%) 0.0 % 0-0 N NEUTROPHIL # (test code = NT#) 3.15 K/mm3 1.8-7.7 N IMMATURE GRANULOCYTE # (test code = IG#) 0.02 x10 3/uL 0-0.03 N LYMPHOCYTE # (test code = LY#) 0.97 K/mm3 1.0-5.0 L MONOCYTE # (test code = MO#) 0.73 K/mm3 0-0.8 N EOSINOPHIL # (test code = EO#) 0.38 K/mm3 0.0-0.5 N BASOPHIL # (test code = BA#) 0.03 K/mm3 0.0-0.2 N NUCLEATED RBC # (test code = NRBC#) 0.00 K/mm3 0.0-0.1 N MANUAL DIFF REQUIRED (test code = MDIFF) NO, ONLY SCAN NEEDED DIFFERENTIAL [id number] 07:40:00* Test Item Value Reference Range Interpretation Comments STAIN ACCEPTABILITY (test code = STN ACCEPTABLE) CABOT RINGS (test code = CAB) MORPHOLOGY COMMENT (test code = MOC) PLATELET ESTIMATE (test code = PLTEST) PLATELET MORPHOLOGY (test code = PLTMORPH) CBC W/AUTO [id number] 07:40:00* Test Item Value Reference Range Interpretation Comments WHITE BLOOD CELL (test code = WBC) 5.3 K/mm3 4.5-12.5 N RED BLOOD CELL (test code = RBC) 3.03 mill/mm3 3.7-5.2 L HEMOGLOBIN (test code = HGB) 9.2 gram/dL 11.5-15.5 L HEMATOCRIT (test code = HCT) 30.3 % 36.0-46.0 L MEAN CELL VOLUME (test code = MCV) 100.0 fL 80-98 H MEAN CELL HGB (test code = MCH) 30.4 picogram 27.0-33.0 N MEAN CELL HGB CONCETRATION (test code = MCHC) 30.4 gram/dL 33.0-36. 0 L RED CELL DISTRIBUTION WIDTH (test code = RDW) 16.2 % 11.6-16. 2 N RED CELL DISTRIBUTION WIDTH SD (test code = RDW-SD) 56.1 fL 37 .0-51.0 H PLATELET COUNT (test code = PLT) 71 K/mm3 150-450 L MEAN PLATELET VOLUME (test code = MPV) 11.1 fL 6.7-11.0 H NEUTROPHIL % (test code = NT%) 59.6 % 39.0-69.0 N IMMATURE GRANULOCYTE % (test code = IG%) 0.4 % 0.0-5.0 N LYMPHOCYTE % (test code = LY%) 18.4 % 25.0-55.0 L MONOCYTE % (test code = MO%) 13.8 % 0.0-10.0 H EOSINOPHIL % (test code = EO%) 7.2 % 0.0-5.0 H BASOPHIL % (test code = BA%) 0.6 % 0.0-1.0 N NUCLEATED RBC % (test code = NRBC%) 0.0 % 0-0 N NEUTROPHIL # (test code = NT#) 3.15 K/mm3 1.8-7.7 N IMMATURE GRANULOCYTE # (test code = IG#) 0.02 x10 3/uL 0-0.03 N LYMPHOCYTE # (test code = LY#) 0.97 K/mm3 1.0-5.0 L MONOCYTE # (test code = MO#) 0.73 K/mm3 0-0.8 N EOSINOPHIL # (test code = EO#) 0.38 K/mm3 0.0-0.5 N BASOPHIL # (test code = BA#) 0.03 K/mm3 0.0-0.2 N NUCLEATED RBC # (test code = NRBC#) 0.00 K/mm3 0.0-0.1 N MANUAL DIFF REQUIRED (test code = MDIFF) NO, ONLY SCAN NEEDED DIFFERENTIAL [id number] 07:40:00* Test Item Value Reference Range Interpretation Comments STAIN ACCEPTABILITY (test code = STN ACCEPTABLE) MORPHOLOGY COMMENT (test code = MOC) PLATELET ESTIMATE (test code = PLTEST) PLATELET MORPHOLOGY (test code = PLTMORPH) CBC W/AUTO [id number] 07:40:00* Test Item Value Reference Range Interpretation Comments WHITE BLOOD CELL (test code = WBC) 5.3 K/mm3 4.5-12.5 N RED BLOOD CELL (test code = RBC) 3.03 mill/mm3 3.7-5.2 L HEMOGLOBIN (test code = HGB) 9.2 gram/dL 11.5-15.5 L HEMATOCRIT (test code = HCT) 30.3 % 36.0-46.0 L MEAN CELL VOLUME (test code = MCV) 100.0 fL 80-98 H MEAN CELL HGB (test code = MCH) 30.4 picogram 27.0-33.0 N MEAN CELL HGB CONCETRATION (test code = MCHC) 30.4 gram/dL 33.0-36. 0 L RED CELL DISTRIBUTION WIDTH (test code = RDW) 16.2 % 11.6-16. 2 N RED CELL DISTRIBUTION WIDTH SD (test code = RDW-SD) 56.1 fL 37 .0-51.0 H PLATELET COUNT (test code = PLT) 71 K/mm3 150-450 L MEAN PLATELET VOLUME (test code = MPV) 11.1 fL 6.7-11.0 H NEUTROPHIL % (test code = NT%) 59.6 % 39.0-69.0 N IMMATURE GRANULOCYTE % (test code = IG%) 0.4 % 0.0-5.0 N LYMPHOCYTE % (test code = LY%) 18.4 % 25.0-55.0 L MONOCYTE % (test code = MO%) 13.8 % 0.0-10.0 H EOSINOPHIL % (test code = EO%) 7.2 % 0.0-5.0 H BASOPHIL % (test code = BA%) 0.6 % 0.0-1.0 N NUCLEATED RBC % (test code = NRBC%) 0.0 % 0-0 N NEUTROPHIL # (test code = NT#) 3.15 K/mm3 1.8-7.7 N IMMATURE GRANULOCYTE # (test code = IG#) 0.02 x10 3/uL 0-0.03 N LYMPHOCYTE # (test code = LY#) 0.97 K/mm3 1.0-5.0 L MONOCYTE # (test code = MO#) 0.73 K/mm3 0-0.8 N EOSINOPHIL # (test code = EO#) 0.38 K/mm3 0.0-0.5 N BASOPHIL # (test code = BA#) 0.03 K/mm3 0.0-0.2 N NUCLEATED RBC # (test code = NRBC#) 0.00 K/mm3 0.0-0.1 N MANUAL DIFF REQUIRED (test code = MDIFF) NO, ONLY SCAN NEEDED DIFFERENTIAL [id number] 07:40:00* Test Item Value Reference Range Interpretation Comments STAIN ACCEPTABILITY (test code = STN ACCEPTABLE) CABOT RINGS (test code = CAB) MORPHOLOGY COMMENT (test code = MOC) PLATELET ESTIMATE (test code = PLTEST) PLATELET MORPHOLOGY (test code = PLTMORPH) [id number] 05:49:00* Test Item Value Reference Range Interpretation Comments GLUBED (test code = GLUBED) 97 mg/dL 74-106 N Performed by certified collar turner operator at [facility] ALPHA FETOPROTEIN TUMOR [id number] 03:06:00* Test Item Value Reference Range Interpretation Comments ALPHA FETOPROTEIN TUMOR MARKER (test code = AFPTM) 4.3 ng/mL 0.0 -8.3 [facility] Electrochemiluminescence Immunoassay(ECLIA)Values obtained with different assay methods or kits cannotbe used interchangeably. Results cannot be interpreted asabsolute evidence of the presence or absence of malignantdisease.This test is not interpretable in females.Performed At: [facility] [id number] Lawson Walker MD Ph:[phone] [id number] 21:20:00* Test Item Value Reference Range Interpretation Comments GLUBED (test code = GLUBED) 81 mg/dL 74-106 N Performed by certified collar turner operator at [facility] [id number] 17:02:00* Test Item Value Reference Range Interpretation Comments GLUBED (test code = GLUBED) 65 mg/dL 74-106 L Performed by certified collar turner operator at [facility] COMPREHENSIVE METABOLIC [id number] 07:45:00* Test Item Value Reference Range Interpretation Comments SODIUM (test code = NA) 143 mmol/L 136-145 N POTASSIUM (test code = K) 3.7 mmol/L 3.5-5.1 N CHLORIDE (test code = CL) 107.0 mmol/L 98-107 N CARBON DIOXIDE (test code = CO2) 32.0 mmol/L 21-32 N ANION GAP (test code = GAP) 7.7 10-20 L GLUCOSE (test code = GLU) 115 mg/dL 74-106 H BLOOD UREA NITROGEN (test code = BUN) 15 mg/dL 7-18 N GLOMERULAR FILTRATION RATE (test code = GFR) > 60 mL/min >=60 Estimated GFR by using Modified MDRD formula.Chronic kidney disease is defined as either kidney damageor GFR <60 mL/min/1.73 m2 for >3 months. CREATININE (test code = CREAT) 0.80 mg/dL 0.55-1.02 N Note change in reference range due to change in reagent. BUN/CREATININE RATIO (test code = BUN/CREA) 19.7 10-20 N TOTAL PROTEIN (test code = PROT) 6.0 gram/dL 6.4-8.2 L ALBUMIN (test code = ALB) 2.5 g/dL 3.4-5.0 L GLOBULIN (test code = GLOB) 3.5 gram/dL 2.7-4.2 N ALBUMIN/GLOBULIN RATIO (test code = A/G) 0.7 0.75-1.50 L CALCIUM (test code = CA) 8.2 mg/dL 8.5-10.1 L BILIRUBIN TOTAL (test code = BILT) 1.80 mg/dL 0.0-1.0 H SGOT/AST (test code = AST) 29 IUnit/L 15-37 N SGPT/ALT (test code = ALT) 15 IUnit/L 12-78 N ALKALINE PHOSPHATASE TOTAL (test code = ALKP) 148 IUnit/L 45-117 H Note change in reference range due to change in reagent. COMPREHENSIVE METABOLIC [id number] 07:20:00* Test Item Value Reference Range Interpretation Comments SODIUM (test code = NA) 143 mmol/L 136-145 N POTASSIUM (test code = K) 3.7 mmol/L 3.5-5.1 N CHLORIDE (test code = CL) 107.0 mmol/L 98-107 N CARBON DIOXIDE (test code = CO2) mmol/L 21-32 ANION GAP (test code = GAP) 10-20 GLUCOSE (test code = GLU) mg/dL 74-106 BLOOD UREA NITROGEN (test code = BUN) mg/dL 7-18 GLOMERULAR FILTRATION RATE (test code = GFR) mL/min >=60 CREATININE (test code = CREAT) mg/dL 0.55-1.02 BUN/CREATININE RATIO (test code = BUN/CREA) 10-20 TOTAL PROTEIN (test code = PROT) gram/dL 6.4-8.2 ALBUMIN (test code = ALB) g/dL 3.4-5.0 GLOBULIN (test code = GLOB) gram/dL 2.7-4.2 ALBUMIN/GLOBULIN RATIO (test code = A/G) 0.75-1.50 CALCIUM (test code = CA) mg/dL 8.5-10.1 BILIRUBIN TOTAL (test code = BILT) mg/dL 0.0-1.0 SGOT/AST (test code = AST) IUnit/L 15-37 SGPT/ALT (test code = ALT) IUnit/L 12-78 ALKALINE PHOSPHATASE TOTAL (test code = ALKP) IUnit/L 45-117 CBC W/AUTO [id number] 06:35:00* Test Item Value Reference Range Interpretation Comments WHITE BLOOD CELL (test code = WBC) 5.6 K/mm3 4.5-12.5 N RED BLOOD CELL (test code = RBC) 2.94 mill/mm3 3.7-5.2 L HEMOGLOBIN (test code = HGB) 9.0 gram/dL 11.5-15.5 L RESULT VERIFIED BY REPEAT ANALYSIS HEMATOCRIT (test code = HCT) 28.7 % 36.0-46.0 L MEAN CELL VOLUME (test code = MCV) 97.6 fL 80-98 N MEAN CELL HGB (test code = MCH) 30.6 picogram 27.0-33.0 N MEAN CELL HGB CONCETRATION (test code = MCHC) 31.4 gram/dL 33.0-36. 0 L RED CELL DISTRIBUTION WIDTH (test code = RDW) 15.7 % 11.6-16. 2 N RED CELL DISTRIBUTION WIDTH SD (test code = RDW-SD) 54.2 fL 37 .0-51.0 H PLATELET COUNT (test code = PLT) 74 K/mm3 150-450 L MEAN PLATELET VOLUME (test code = MPV) 11.3 fL 6.7-11.0 H NEUTROPHIL % (test code = NT%) 79.6 % 39.0-69.0 H IMMATURE GRANULOCYTE % (test code = IG%) 0.7 % 0.0-5.0 N LYMPHOCYTE % (test code = LY%) 9.9 % 25.0-55.0 L MONOCYTE % (test code = MO%) 8.2 % 0.0-10.0 N EOSINOPHIL % (test code = EO%) 1.4 % 0.0-5.0 N BASOPHIL % (test code = BA%) 0.2 % 0.0-1.0 N NUCLEATED RBC % (test code = NRBC%) 0.0 % 0-0 N NEUTROPHIL # (test code = NT#) 4.48 K/mm3 1.8-7.7 N IMMATURE GRANULOCYTE # (test code = IG#) 0.04 x10 3/uL 0-0.03 H LYMPHOCYTE # (test code = LY#) 0.56 K/mm3 1.0-5.0 L MONOCYTE # (test code = MO#) 0.46 K/mm3 0-0.8 N EOSINOPHIL # (test code = EO#) 0.08 K/mm3 0.0-0.5 N BASOPHIL # (test code = BA#) 0.01 K/mm3 0.0-0.2 N NUCLEATED RBC # (test code = NRBC#) 0.00 K/mm3 0.0-0.1 N MANUAL DIFF REQUIRED (test code = MDIFF) NO [id number] 05:43:00* Test Item Value Reference Range Interpretation Comments GLUBED (test code = GLUBED) 99 mg/dL 74-106 N Performed by certified collar turner operator at [facility] [id number] 21:57:00* Test Item Value Reference Range Interpretation Comments GLUBED (test code = GLUBED) 119 mg/dL 74-106 H Performed by certified collar turner operator at [facility] [id number] 16:29:00* Test Item Value Reference Range Interpretation Comments GLUBED (test code = GLUBED) 169 mg/dL 74-106 H [facility] [id number] 12:17:00* Test Item Value Reference Range Interpretation Comments AMMONIA (test code = AMM) 74 umol/L 11-32 H [id number] 12:05:00* Test Item Value Reference Range Interpretation Comments GLUBED (test code = GLUBED) 170 mg/dL 74-106 H [facility] CBC W/AUTO [id number] 06:22:00* Test Item Value Reference Range Interpretation Comments WHITE BLOOD CELL (test code = WBC) 2.8 K/mm3 4.5-12.5 L RED BLOOD CELL (test code = RBC) 2.27 mill/mm3 3.7-5.2 L HEMOGLOBIN (test code = HGB) 7.0 gram/dL 11.5-15.5 L HEMATOCRIT (test code = HCT) 22.5 % 36.0-46.0 L MEAN CELL VOLUME (test code = MCV) 99.1 fL 80-98 H MEAN CELL HGB (test code = MCH) 30.8 picogram 27.0-33.0 N MEAN CELL HGB CONCETRATION (test code = MCHC) 31.1 gram/dL 33.0-36. 0 L RED CELL DISTRIBUTION WIDTH (test code = RDW) 15.7 % 11.6-16. 2 N RED CELL DISTRIBUTION WIDTH SD (test code = RDW-SD) 55.0 fL 37 .0-51.0 H PLATELET COUNT (test code = PLT) 64 K/mm3 150-450 L MEAN PLATELET VOLUME (test code = MPV) 11.4 fL 6.7-11.0 H NEUTROPHIL % (test code = NT%) 88.4 % 39.0-69.0 H IMMATURE GRANULOCYTE % (test code = IG%) 0.7 % 0.0-5.0 N LYMPHOCYTE % (test code = LY%) 7.9 % 25.0-55.0 L MONOCYTE % (test code = MO%) 2.2 % 0.0-10.0 N EOSINOPHIL % (test code = EO%) 0.4 % 0.0-5.0 N BASOPHIL % (test code = BA%) 0.4 % 0.0-1.0 N NUCLEATED RBC % (test code = NRBC%) 0.0 % 0-0 N NEUTROPHIL # (test code = NT#) 2.46 K/mm3 1.8-7.7 N IMMATURE GRANULOCYTE # (test code = IG#) 0.02 x10 3/uL 0-0.03 N LYMPHOCYTE # (test code = LY#) 0.22 K/mm3 1.0-5.0 L MONOCYTE # (test code = MO#) 0.06 K/mm3 0-0.8 N EOSINOPHIL # (test code = EO#) 0.01 K/mm3 0.0-0.5 N BASOPHIL # (test code = BA#) 0.01 K/mm3 0.0-0.2 N NUCLEATED RBC # (test code = NRBC#) 0.00 K/mm3 0.0-0.1 N MANUAL DIFF REQUIRED (test code = MDIFF) NO, ONLY SCAN NEEDED DIFFERENTIAL [id number] 06:22:00* Test Item Value Reference Range Interpretation Comments STAIN ACCEPTABILITY (test code = STN ACCEPTABLE) STAIN ACCEPTABLE POLYCHROMASIA (test code = POLC) 1+ HYPOCHROMIA (test code = HYPO) 1+ PLATELET ESTIMATE (test code = PLTEST) DECREASED PLATELET MORPHOLOGY (test code = PLTMORPH) NORMAL [id number] 05:19:00* Test Item Value Reference Range Interpretation Comments GLUBED (test code = GLUBED) 159 mg/dL 74-106 H Performed by certified collar turner operator at [facility] CBC W/AUTO [id number] 05:09:00* Test Item Value Reference Range Interpretation Comments WHITE BLOOD CELL (test code = WBC) 2.8 K/mm3 4.5-12.5 L RED BLOOD CELL (test code = RBC) 2.27 mill/mm3 3.7-5.2 L HEMOGLOBIN (test code = HGB) 7.0 gram/dL 11.5-15.5 L HEMATOCRIT (test code = HCT) 22.5 % 36.0-46.0 L MEAN CELL VOLUME (test code = MCV) 99.1 fL 80-98 H MEAN CELL HGB (test code = MCH) 30.8 picogram 27.0-33.0 N MEAN CELL HGB CONCETRATION (test code = MCHC) 31.1 gram/dL 33.0-36. 0 L RED CELL DISTRIBUTION WIDTH (test code = RDW) 15.7 % 11.6-16. 2 N RED CELL DISTRIBUTION WIDTH SD (test code = RDW-SD) 55.0 fL 37 .0-51.0 H PLATELET COUNT (test code = PLT) 64 K/mm3 150-450 L MEAN PLATELET VOLUME (test code = MPV) 11.4 fL 6.7-11.0 H NEUTROPHIL % (test code = NT%) 88.4 % 39.0-69.0 H IMMATURE GRANULOCYTE % (test code = IG%) 0.7 % 0.0-5.0 N LYMPHOCYTE % (test code = LY%) 7.9 % 25.0-55.0 L MONOCYTE % (test code = MO%) 2.2 % 0.0-10.0 N EOSINOPHIL % (test code = EO%) 0.4 % 0.0-5.0 N BASOPHIL % (test code = BA%) 0.4 % 0.0-1.0 N NUCLEATED RBC % (test code = NRBC%) 0.0 % 0-0 N NEUTROPHIL # (test code = NT#) 2.46 K/mm3 1.8-7.7 N IMMATURE GRANULOCYTE # (test code = IG#) 0.02 x10 3/uL 0-0.03 N LYMPHOCYTE # (test code = LY#) 0.22 K/mm3 1.0-5.0 L MONOCYTE # (test code = MO#) 0.06 K/mm3 0-0.8 N EOSINOPHIL # (test code = EO#) 0.01 K/mm3 0.0-0.5 N BASOPHIL # (test code = BA#) 0.01 K/mm3 0.0-0.2 N NUCLEATED RBC # (test code = NRBC#) 0.00 K/mm3 0.0-0.1 N MANUAL DIFF REQUIRED (test code = MDIFF) NO, ONLY SCAN NEEDED DIFFERENTIAL [id number] 05:09:00* Test Item Value Reference Range Interpretation Comments STAIN ACCEPTABILITY (test code = STN ACCEPTABLE) CABOT RINGS (test code = CAB) MORPHOLOGY COMMENT (test code = MOC) PLATELET ESTIMATE (test code = PLTEST) PLATELET MORPHOLOGY (test code = PLTMORPH) CBC W/AUTO [id number] 05:09:00* Test Item Value Reference Range Interpretation Comments WHITE BLOOD CELL (test code = WBC) 2.8 K/mm3 4.5-12.5 L RED BLOOD CELL (test code = RBC) 2.27 mill/mm3 3.7-5.2 L HEMOGLOBIN (test code = HGB) 7.0 gram/dL 11.5-15.5 L HEMATOCRIT (test code = HCT) 22.5 % 36.0-46.0 L MEAN CELL VOLUME (test code = MCV) 99.1 fL 80-98 H MEAN CELL HGB (test code = MCH) 30.8 picogram 27.0-33.0 N MEAN CELL HGB CONCETRATION (test code = MCHC) 31.1 gram/dL 33.0-36. 0 L RED CELL DISTRIBUTION WIDTH (test code = RDW) 15.7 % 11.6-16. 2 N RED CELL DISTRIBUTION WIDTH SD (test code = RDW-SD) 55.0 fL 37 .0-51.0 H PLATELET COUNT (test code = PLT) 64 K/mm3 150-450 L MEAN PLATELET VOLUME (test code = MPV) 11.4 fL 6.7-11.0 H NEUTROPHIL % (test code = NT%) 88.4 % 39.0-69.0 H IMMATURE GRANULOCYTE % (test code = IG%) 0.7 % 0.0-5.0 N LYMPHOCYTE % (test code = LY%) 7.9 % 25.0-55.0 L MONOCYTE % (test code = MO%) 2.2 % 0.0-10.0 N EOSINOPHIL % (test code = EO%) 0.4 % 0.0-5.0 N BASOPHIL % (test code = BA%) 0.4 % 0.0-1.0 N NUCLEATED RBC % (test code = NRBC%) 0.0 % 0-0 N NEUTROPHIL # (test code = NT#) 2.46 K/mm3 1.8-7.7 N IMMATURE GRANULOCYTE # (test code = IG#) 0.02 x10 3/uL 0-0.03 N LYMPHOCYTE # (test code = LY#) 0.22 K/mm3 1.0-5.0 L MONOCYTE # (test code = MO#) 0.06 K/mm3 0-0.8 N EOSINOPHIL # (test code = EO#) 0.01 K/mm3 0.0-0.5 N BASOPHIL # (test code = BA#) 0.01 K/mm3 0.0-0.2 N NUCLEATED RBC # (test code = NRBC#) 0.00 K/mm3 0.0-0.1 N MANUAL DIFF REQUIRED (test code = MDIFF) NO, ONLY SCAN NEEDED DIFFERENTIAL [id number] 05:09:00* Test Item Value Reference Range Interpretation Comments STAIN ACCEPTABILITY (test code = STN ACCEPTABLE) CABOT RINGS (test code = CAB) MORPHOLOGY COMMENT (test code = MOC) PLATELET ESTIMATE (test code = PLTEST) PLATELET MORPHOLOGY (test code = PLTMORPH) CBC W/AUTO [id number] 05:09:00* Test Item Value Reference Range Interpretation Comments WHITE BLOOD CELL (test code = WBC) 2.8 K/mm3 4.5-12.5 L RED BLOOD CELL (test code = RBC) 2.27 mill/mm3 3.7-5.2 L HEMOGLOBIN (test code = HGB) 7.0 gram/dL 11.5-15.5 L HEMATOCRIT (test code = HCT) 22.5 % 36.0-46.0 L MEAN CELL VOLUME (test code = MCV) 99.1 fL 80-98 H MEAN CELL HGB (test code = MCH) 30.8 picogram 27.0-33.0 N MEAN CELL HGB CONCETRATION (test code = MCHC) 31.1 gram/dL 33.0-36. 0 L RED CELL DISTRIBUTION WIDTH (test code = RDW) 15.7 % 11.6-16. 2 N RED CELL DISTRIBUTION WIDTH SD (test code = RDW-SD) 55.0 fL 37 .0-51.0 H PLATELET COUNT (test code = PLT) 64 K/mm3 150-450 L MEAN PLATELET VOLUME (test code = MPV) 11.4 fL 6.7-11.0 H NEUTROPHIL % (test code = NT%) 88.4 % 39.0-69.0 H IMMATURE GRANULOCYTE % (test code = IG%) 0.7 % 0.0-5.0 N LYMPHOCYTE % (test code = LY%) 7.9 % 25.0-55.0 L MONOCYTE % (test code = MO%) 2.2 % 0.0-10.0 N EOSINOPHIL % (test code = EO%) 0.4 % 0.0-5.0 N BASOPHIL % (test code = BA%) 0.4 % 0.0-1.0 N NUCLEATED RBC % (test code = NRBC%) 0.0 % 0-0 N NEUTROPHIL # (test code = NT#) 2.46 K/mm3 1.8-7.7 N IMMATURE GRANULOCYTE # (test code = IG#) 0.02 x10 3/uL 0-0.03 N LYMPHOCYTE # (test code = LY#) 0.22 K/mm3 1.0-5.0 L MONOCYTE # (test code = MO#) 0.06 K/mm3 0-0.8 N EOSINOPHIL # (test code = EO#) 0.01 K/mm3 0.0-0.5 N BASOPHIL # (test code = BA#) 0.01 K/mm3 0.0-0.2 N NUCLEATED RBC # (test code = NRBC#) 0.00 K/mm3 0.0-0.1 N MANUAL DIFF REQUIRED (test code = MDIFF) NO, ONLY SCAN NEEDED DIFFERENTIAL [id number] 05:09:00* Test Item Value Reference Range Interpretation Comments STAIN ACCEPTABILITY (test code = STN ACCEPTABLE) MORPHOLOGY COMMENT (test code = MOC) PLATELET ESTIMATE (test code = PLTEST) PLATELET MORPHOLOGY (test code = PLTMORPH) CBC W/AUTO [id number] 05:09:00* Test Item Value Reference Range Interpretation Comments WHITE BLOOD CELL (test code = WBC) 2.8 K/mm3 4.5-12.5 L RED BLOOD CELL (test code = RBC) 2.27 mill/mm3 3.7-5.2 L HEMOGLOBIN (test code = HGB) 7.0 gram/dL 11.5-15.5 L HEMATOCRIT (test code = HCT) 22.5 % 36.0-46.0 L MEAN CELL VOLUME (test code = MCV) 99.1 fL 80-98 H MEAN CELL HGB (test code = MCH) 30.8 picogram 27.0-33.0 N MEAN CELL HGB CONCETRATION (test code = MCHC) 31.1 gram/dL 33.0-36. 0 L RED CELL DISTRIBUTION WIDTH (test code = RDW) 15.7 % 11.6-16. 2 N RED CELL DISTRIBUTION WIDTH SD (test code = RDW-SD) 55.0 fL 37 .0-51.0 H PLATELET COUNT (test code = PLT) 64 K/mm3 150-450 L MEAN PLATELET VOLUME (test code = MPV) 11.4 fL 6.7-11.0 H NEUTROPHIL % (test code = NT%) 88.4 % 39.0-69.0 H IMMATURE GRANULOCYTE % (test code = IG%) 0.7 % 0.0-5.0 N LYMPHOCYTE % (test code = LY%) 7.9 % 25.0-55.0 L MONOCYTE % (test code = MO%) 2.2 % 0.0-10.0 N EOSINOPHIL % (test code = EO%) 0.4 % 0.0-5.0 N BASOPHIL % (test code = BA%) 0.4 % 0.0-1.0 N NUCLEATED RBC % (test code = NRBC%) 0.0 % 0-0 N NEUTROPHIL # (test code = NT#) 2.46 K/mm3 1.8-7.7 N IMMATURE GRANULOCYTE # (test code = IG#) 0.02 x10 3/uL 0-0.03 N LYMPHOCYTE # (test code = LY#) 0.22 K/mm3 1.0-5.0 L MONOCYTE # (test code = MO#) 0.06 K/mm3 0-0.8 N EOSINOPHIL # (test code = EO#) 0.01 K/mm3 0.0-0.5 N BASOPHIL # (test code = BA#) 0.01 K/mm3 0.0-0.2 N NUCLEATED RBC # (test code = NRBC#) 0.00 K/mm3 0.0-0.1 N MANUAL DIFF REQUIRED (test code = MDIFF) NO, ONLY SCAN NEEDED DIFFERENTIAL [id number] 05:09:00* Test Item Value Reference Range Interpretation Comments STAIN ACCEPTABILITY (test code = STN ACCEPTABLE) CABOT RINGS (test code = CAB) MORPHOLOGY COMMENT (test code = MOC) PLATELET ESTIMATE (test code = PLTEST) PLATELET MORPHOLOGY (test code = PLTMORPH) [id number] 20:41:00* Test Item Value Reference Range Interpretation Comments GLUBED (test code = GLUBED) 79 mg/dL 74-106 N Performed by certified collar turner operator at [facility] - CT ABD PELVIS [id number] 19:31:00 Name: ALEX STANTON [facility] : 1950 Age/S: 67 / F [address] Unit #: [id number] Loc: [place] [address] Phys: Alessandra Tompkins MD Acct: [id number] Dis Date: Status: ADM IN PHONE #: [phone] Exam Date: 08/30/2018 192 FAX #: [phone] Reason: cirrhosis EXAMS: CPT CODE: [id number] CT ABD PELVIS W/CONT [id number] REASON FOR EXAM: cirrhosis EXAM ORDER DATE: 08/30/2018 5:36 PM Ordering M.Edna: Alessandra Tompkins MD PROCEDURE: - CT ABD PELVIS W/CONT COMPARISON: FINDINGS: CT images of the abdomen and pelvis were obtained with IV and without oral contrast at 5mm. Dose modulation, iterative reconstruction, and/or weight based adjustment of the MA/KV was utilized to reduce the radiation dose to as low as reasonably achievable. Intravenous contrast: 100cc of Omnipaque 370. The pancreas is unremarkable. The patient is status post cholecystectomy The kidneys are within normal limits. The urinary bladder is unremarkable. The colon, small bowel, and stomach are within normal limits without evidence of obstruction. The appendix was not seen No evidence of free air within the. 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 Mild ascites. Carmen ctronically Signed by Jaime Cole on 08/30/2018 at 1931 Reported and signed by: Drew Cole M.D. CC: Alessandra Tompkins MD; John Villavicencio i Technologist:Geovanna Kan RT(R) CTDI: DLP: Trnscb Date/Time: 08/30/2018 (1930) tWERO Orig Print D/T: S: 08/30/2018 (193) PAGE 1 Signed Report [id number] 19:19:00* Test Item Value Reference Range Interpretation Comments AMMONIA (test code = AMM) 86 umol/L 11-32 H CBC W/AUTO [id number] 17:12:00* Test Item Value Reference Range Interpretation Comments WHITE BLOOD CELL (test code = WBC) 4.5 K/mm3 4.5-12.5 N RED BLOOD CELL (test code = RBC) 2.57 mill/mm3 3.7-5.2 L HEMOGLOBIN (test code = HGB) 7.7 gram/dL 11.5-15.5 L RESULT VERIFIED BY REPEAT ANALYSIS HEMATOCRIT (test code = HCT) 25.0 % 36.0-46.0 L MEAN CELL VOLUME (test code = MCV) 97.3 fL 80-98 N MEAN CELL HGB (test code = MCH) 30.0 picogram 27.0-33.0 N MEAN CELL HGB CONCETRATION (test code = MCHC) 30.8 gram/dL 33.0-36. 0 L RED CELL DISTRIBUTION WIDTH (test code = RDW) 15.9 % 11.6-16. 2 N RED CELL DISTRIBUTION WIDTH SD (test code = RDW-SD) 56.0 fL 37 .0-51.0 H PLATELET COUNT (test code = PLT) 77 K/mm3 150-450 L RESULT VERIFIED BY REPEAT ANALYSIS MEAN PLATELET VOLUME (test code = MPV) 11.1 fL 6.7-11.0 H NEUTROPHIL % (test code = NT%) 69.9 % 39.0-69.0 H IMMATURE GRANULOCYTE % (test code = IG%) 0.7 % 0.0-5.0 N LYMPHOCYTE % (test code = LY%) 13.3 % 25.0-55.0 L MONOCYTE % (test code = MO%) 10.4 % 0.0-10.0 H EOSINOPHIL % (test code = EO%) 5.3 % 0.0-5.0 H BASOPHIL % (test code = BA%) 0.4 % 0.0-1.0 N NUCLEATED RBC % (test code = NRBC%) 0.0 % 0-0 N NEUTROPHIL # (test code = NT#) 3.15 K/mm3 1.8-7.7 N IMMATURE GRANULOCYTE # (test code = IG#) 0.03 x10 3/uL 0-0.03 N LYMPHOCYTE # (test code = LY#) 0.60 K/mm3 1.0-5.0 L MONOCYTE # (test code = MO#) 0.47 K/mm3 0-0.8 N EOSINOPHIL # (test code = EO#) 0.24 K/mm3 0.0-0.5 N BASOPHIL # (test code = BA#) 0.02 K/mm3 0.0-0.2 N NUCLEATED RBC # (test code = NRBC#) 0.00 K/mm3 0.0-0.1 N MANUAL DIFF REQUIRED (test code = MDIFF) NO, ONLY SCAN NEEDED QNS, REDRAW TO [employer]. 08/30/18 1539DIFFERENTIAL [id number] 17:12:00* Test Item Value Reference Range Interpretation Comments STAIN ACCEPTABILITY (test code = STN ACCEPTABLE) STAIN ACCEPTABLE POLYCHROMASIA (test code = POLC) 1+ PLATELET ESTIMATE (test code = PLTEST) DECREASED PLATELET MORPHOLOGY (test code = PLTMORPH) NORMAL QNS, REDRAW TO [employer]. 08/30/18 1539CBC W/AUTO [id number] 16:32:00 * Test Item Value Reference Range Interpretation Comments WHITE BLOOD CELL (test code = WBC) 4.5 K/mm3 4.5-12.5 N RED BLOOD CELL (test code = RBC) 2.57 mill/mm3 3.7-5.2 L HEMOGLOBIN (test code = HGB) 7.7 gram/dL 11.5-15.5 L RESULT VERIFIED BY REPEAT ANALYSIS HEMATOCRIT (test code = HCT) 25.0 % 36.0-46.0 L MEAN CELL VOLUME (test code = MCV) 97.3 fL 80-98 N MEAN CELL HGB (test code = MCH) 30.0 picogram 27.0-33.0 N MEAN CELL HGB CONCETRATION (test code = MCHC) 30.8 gram/dL 33.0-36. 0 L RED CELL DISTRIBUTION WIDTH (test code = RDW) 15.9 % 11.6-16. 2 N RED CELL DISTRIBUTION WIDTH SD (test code = RDW-SD) 56.0 fL 37 .0-51.0 H PLATELET COUNT (test code = PLT) 77 K/mm3 150-450 L RESULT VERIFIED BY REPEAT ANALYSIS MEAN PLATELET VOLUME (test code = MPV) 11.1 fL 6.7-11.0 H NEUTROPHIL % (test code = NT%) 69.9 % 39.0-69.0 H IMMATURE GRANULOCYTE % (test code = IG%) 0.7 % 0.0-5.0 N LYMPHOCYTE % (test code = LY%) 13.3 % 25.0-55.0 L MONOCYTE % (test code = MO%) 10.4 % 0.0-10.0 H EOSINOPHIL % (test code = EO%) 5.3 % 0.0-5.0 H BASOPHIL % (test code = BA%) 0.4 % 0.0-1.0 N NUCLEATED RBC % (test code = NRBC%) 0.0 % 0-0 N NEUTROPHIL # (test code = NT#) 3.15 K/mm3 1.8-7.7 N IMMATURE GRANULOCYTE # (test code = IG#) 0.03 x10 3/uL 0-0.03 N LYMPHOCYTE # (test code = LY#) 0.60 K/mm3 1.0-5.0 L MONOCYTE # (test code = MO#) 0.47 K/mm3 0-0.8 N EOSINOPHIL # (test code = EO#) 0.24 K/mm3 0.0-0.5 N BASOPHIL # (test code = BA#) 0.02 K/mm3 0.0-0.2 N NUCLEATED RBC # (test code = NRBC#) 0.00 K/mm3 0.0-0.1 N MANUAL DIFF REQUIRED (test code = MDIFF) NO, ONLY SCAN NEEDED QNS, REDRAW TO [employer] 08/30/18 1539DIFFERENTIAL [id number] 16:32:00* Test Item Value Reference Range Interpretation Comments STAIN ACCEPTABILITY (test code = STN ACCEPTABLE) CABOT RINGS (test code = CAB) MORPHOLOGY COMMENT (test code = MOC) PLATELET ESTIMATE (test code = PLTEST) PLATELET MORPHOLOGY (test code = PLTMORPH) QNS, REDRAW TO [employer] 08/30/18 1539CBC W/AUTO [id number] 16:32:00 * Test Item Value Reference Range Interpretation Comments WHITE BLOOD CELL (test code = WBC) 4.5 K/mm3 4.5-12.5 N RED BLOOD CELL (test code = RBC) 2.57 mill/mm3 3.7-5.2 L HEMOGLOBIN (test code = HGB) 7.7 gram/dL 11.5-15.5 L RESULT VERIFIED BY REPEAT ANALYSIS HEMATOCRIT (test code = HCT) 25.0 % 36.0-46.0 L MEAN CELL VOLUME (test code = MCV) 97.3 fL 80-98 N MEAN CELL HGB (test code = MCH) 30.0 picogram 27.0-33.0 N MEAN CELL HGB CONCETRATION (test code = MCHC) 30.8 gram/dL 33.0-36. 0 L RED CELL DISTRIBUTION WIDTH (test code = RDW) 15.9 % 11.6-16. 2 N RED CELL DISTRIBUTION WIDTH SD (test code = RDW-SD) 56.0 fL 37 .0-51.0 H PLATELET COUNT (test code = PLT) 77 K/mm3 150-450 L RESULT VERIFIED BY REPEAT ANALYSIS MEAN PLATELET VOLUME (test code = MPV) 11.1 fL 6.7-11.0 H NEUTROPHIL % (test code = NT%) 69.9 % 39.0-69.0 H IMMATURE GRANULOCYTE % (test code = IG%) 0.7 % 0.0-5.0 N LYMPHOCYTE % (test code = LY%) 13.3 % 25.0-55.0 L MONOCYTE % (test code = MO%) 10.4 % 0.0-10.0 H EOSINOPHIL % (test code = EO%) 5.3 % 0.0-5.0 H BASOPHIL % (test code = BA%) 0.4 % 0.0-1.0 N NUCLEATED RBC % (test code = NRBC%) 0.0 % 0-0 N NEUTROPHIL # (test code = NT#) 3.15 K/mm3 1.8-7.7 N IMMATURE GRANULOCYTE # (test code = IG#) 0.03 x10 3/uL 0-0.03 N LYMPHOCYTE # (test code = LY#) 0.60 K/mm3 1.0-5.0 L MONOCYTE # (test code = MO#) 0.47 K/mm3 0-0.8 N EOSINOPHIL # (test code = EO#) 0.24 K/mm3 0.0-0.5 N BASOPHIL # (test code = BA#) 0.02 K/mm3 0.0-0.2 N NUCLEATED RBC # (test code = NRBC#) 0.00 K/mm3 0.0-0.1 N MANUAL DIFF REQUIRED (test code = MDIFF) NO, ONLY SCAN NEEDED QNS, REDRAW TO [employer]. 08/30/18 1539DIFFERENTIAL [id number] 16:32:00* Test Item Value Reference Range Interpretation Comments STAIN ACCEPTABILITY (test code = STN ACCEPTABLE) MORPHOLOGY COMMENT (test code = MOC) PLATELET ESTIMATE (test code = PLTEST) PLATELET MORPHOLOGY (test code = PLTMORPH) QNS, REDRAW TO [employer] 08/30/18 1539CBC W/AUTO [id number] 16:32:00 * Test Item Value Reference Range Interpretation Comments WHITE BLOOD CELL (test code = WBC) 4.5 K/mm3 4.5-12.5 N RED BLOOD CELL (test code = RBC) 2.57 mill/mm3 3.7-5.2 L HEMOGLOBIN (test code = HGB) 7.7 gram/dL 11.5-15.5 L RESULT VERIFIED BY REPEAT ANALYSIS HEMATOCRIT (test code = HCT) 25.0 % 36.0-46.0 L MEAN CELL VOLUME (test code = MCV) 97.3 fL 80-98 N MEAN CELL HGB (test code = MCH) 30.0 picogram 27.0-33.0 N MEAN CELL HGB CONCETRATION (test code = MCHC) 30.8 gram/dL 33.0-36. 0 L RED CELL DISTRIBUTION WIDTH (test code = RDW) 15.9 % 11.6-16. 2 N RED CELL DISTRIBUTION WIDTH SD (test code = RDW-SD) 56.0 fL 37 .0-51.0 H PLATELET COUNT (test code = PLT) 77 K/mm3 150-450 L RESULT VERIFIED BY REPEAT ANALYSIS MEAN PLATELET VOLUME (test code = MPV) 11.1 fL 6.7-11.0 H NEUTROPHIL % (test code = NT%) 69.9 % 39.0-69.0 H IMMATURE GRANULOCYTE % (test code = IG%) 0.7 % 0.0-5.0 N LYMPHOCYTE % (test code = LY%) 13.3 % 25.0-55.0 L MONOCYTE % (test code = MO%) 10.4 % 0.0-10.0 H EOSINOPHIL % (test code = EO%) 5.3 % 0.0-5.0 H BASOPHIL % (test code = BA%) 0.4 % 0.0-1.0 N NUCLEATED RBC % (test code = NRBC%) 0.0 % 0-0 N NEUTROPHIL # (test code = NT#) 3.15 K/mm3 1.8-7.7 N IMMATURE GRANULOCYTE # (test code = IG#) 0.03 x10 3/uL 0-0.03 N LYMPHOCYTE # (test code = LY#) 0.60 K/mm3 1.0-5.0 L MONOCYTE # (test code = MO#) 0.47 K/mm3 0-0.8 N EOSINOPHIL # (test code = EO#) 0.24 K/mm3 0.0-0.5 N BASOPHIL # (test code = BA#) 0.02 K/mm3 0.0-0.2 N NUCLEATED RBC # (test code = NRBC#) 0.00 K/mm3 0.0-0.1 N MANUAL DIFF REQUIRED (test code = MDIFF) NO, ONLY SCAN NEEDED QNS, REDRAW TO [employer] 08/30/18 [id number] [id number] 16:32:00* Test Item Value Reference Range Interpretation Comments STAIN ACCEPTABILITY (test code = STN ACCEPTABLE) MORPHOLOGY COMMENT (test code = MOC) PLATELET ESTIMATE (test code = PLTEST) PLATELET MORPHOLOGY (test code = PLTMORPH) QNS, REDRAW TO [employer] 08/30/18 [id number] W/AUTO [id number] 16:32:00 * Test Item Value Reference Range Interpretation Comments WHITE BLOOD CELL (test code = WBC) 4.5 K/mm3 4.5-12.5 N RED BLOOD CELL (test code = RBC) 2.57 mill/mm3 3.7-5.2 L HEMOGLOBIN (test code = HGB) 7.7 gram/dL 11.5-15.5 L RESULT VERIFIED BY REPEAT ANALYSIS HEMATOCRIT (test code = HCT) 25.0 % 36.0-46.0 L MEAN CELL VOLUME (test code = MCV) 97.3 fL 80-98 N MEAN CELL HGB (test code = MCH) 30.0 picogram 27.0-33.0 N MEAN CELL HGB CONCETRATION (test code = MCHC) 30.8 gram/dL 33.0-36. 0 L RED CELL DISTRIBUTION WIDTH (test code = RDW) 15.9 % 11.6-16. 2 N RED CELL DISTRIBUTION WIDTH SD (test code = RDW-SD) 56.0 fL 37 .0-51.0 H PLATELET COUNT (test code = PLT) 77 K/mm3 150-450 L RESULT VERIFIED BY REPEAT ANALYSIS MEAN PLATELET VOLUME (test code = MPV) 11.1 fL 6.7-11.0 H NEUTROPHIL % (test code = NT%) 69.9 % 39.0-69.0 H IMMATURE GRANULOCYTE % (test code = IG%) 0.7 % 0.0-5.0 N LYMPHOCYTE % (test code = LY%) 13.3 % 25.0-55.0 L MONOCYTE % (test code = MO%) 10.4 % 0.0-10.0 H EOSINOPHIL % (test code = EO%) 5.3 % 0.0-5.0 H BASOPHIL % (test code = BA%) 0.4 % 0.0-1.0 N NUCLEATED RBC % (test code = NRBC%) 0.0 % 0-0 N NEUTROPHIL # (test code = NT#) 3.15 K/mm3 1.8-7.7 N IMMATURE GRANULOCYTE # (test code = IG#) 0.03 x10 3/uL 0-0.03 N LYMPHOCYTE # (test code = LY#) 0.60 K/mm3 1.0-5.0 L MONOCYTE # (test code = MO#) 0.47 K/mm3 0-0.8 N EOSINOPHIL # (test code = EO#) 0.24 K/mm3 0.0-0.5 N BASOPHIL # (test code = BA#) 0.02 K/mm3 0.0-0.2 N NUCLEATED RBC # (test code = NRBC#) 0.00 K/mm3 0.0-0.1 N MANUAL DIFF REQUIRED (test code = MDIFF) NO, ONLY SCAN NEEDED QNS, REDRAW TO [facility], [facility]. 08/30/18 [id number] [id number] 16:32:00* Test Item Value Reference Range Interpretation Comments STAIN ACCEPTABILITY (test code = STN ACCEPTABLE) CABOT RINGS (test code = CAB) MORPHOLOGY COMMENT (test code = MOC) PLATELET ESTIMATE (test code = PLTEST) PLATELET MORPHOLOGY (test code = PLTMORPH) ROQUE, REDRAW TO [employer] 08/30/18 [id number] 12:38:00* Test Item Value Reference Range Interpretation Comments GLUBED (test code = GLUBED) 88 mg/dL 74-106 N Performed by certified collar turner operator at [facility] [id number] 07:24:00* Test Item Value Reference Range Interpretation Comments GLUBED (test code = GLUBED) 102 mg/dL 74-106 N Performed by certified collar turner operator at [facility] [id number] 23:13:00* Test Item Value Reference Range Interpretation Comments GLUBED (test code = GLUBED) 127 mg/dL 74-106 H Performed by certified collar turner operator at [facility] [id number] 21:19:00* Test Item Value Reference Range Interpretation Comments GLUBED (test code = GLUBED) 50 mg/dL 74-106 L Performed by certified collar turner operator at [facility] [id number] 18:46:00* Test Item Value Reference Range Interpretation Comments AMMONIA (test code = AMM) 54 umol/L 11-32 H B-TYPE NATRIURETIC [id number] 14:49:00* Test Item Value Reference Range Interpretation Comments B-TYPE NATRIURETIC PEPTIDE (test code = BNP) 88.07 pgram/mL 0-100 N BASIC METABOLIC [id number] 14:45:00* Test Item Value Reference Range Interpretation Comments SODIUM (test code = NA) 140 mmol/L 136-145 N POTASSIUM (test code = K) 3.9 mmol/L 3.5-5.1 N CHLORIDE (test code = CL) 102.0 mmol/L 98-107 N CARBON DIOXIDE (test code = CO2) 31.0 mmol/L 21-32 N ANION GAP (test code = GAP) 10.9 10-20 N GLUCOSE (test code = GLU) 93 mg/dL 74-106 N BLOOD UREA NITROGEN (test code = BUN) 14 mg/dL 7-18 N GLOMERULAR FILTRATION RATE (test code = GFR) 55 mL/min >=60 Estimated GFR by using Modified MDRD formula.Chronic kidney disease is defined as either kidney damageor GFR <60 mL/min/1.73 m2 for >3 months. CREATININE (test code = CREAT) 1.00 mg/dL 0.55-1.02 N Note change in reference range due to change in reagent. BUN/CREATININE RATIO (test code = BUN/CREA) 14.0 10-20 N CALCIUM (test code = CA) 7.6 mg/dL 8.5-10.1 L HEPATIC FUNCTION [id number] 14:45:00* Test Item Value Reference Range Interpretation Comments TOTAL PROTEIN (test code = PROT) 5.9 gram/dL 6.4-8.2 L ALBUMIN (test code = ALB) 2.3 g/dL 3.4-5.0 L GLOBULIN (test code = GLOB) 3.6 gram/dL 2.7-4.2 N ALBUMIN/GLOBULIN RATIO (test code = A/G) 0.6 0.75-1.50 L BILIRUBIN TOTAL (test code = BILT) 1.40 mg/dL 0.0-1.0 H BILIRUBIN DIRECT (test code = BILD) 0.52 mg/dL 0.0-0.20 H SGOT/AST (test code = AST) 34 IUnit/L 15-37 N SGPT/ALT (test code = ALT) 18 IUnit/L 12-78 N ALKALINE PHOSPHATASE TOTAL (test code = ALKP) 167 IUnit/L 45-117 H Note change in reference range due to change in reagent. [id number] 14:45:00* Test Item Value Reference Range Interpretation Comments LIPASE (test code = LIP) 67 U/L 73.0-393.0 L [id number] 14:45:00* Test Item Value Reference Range Interpretation Comments MAGNESIUM (test code = MAG) 2.1 mg/dL 1.8-2.4 N THYROID PROFILE [id number] 14:45:00* Test Item Value Reference Range Interpretation Comments T3 UPTAKE (test code = T3UP) 34.0 % 30.0-40.0 N T4 (THYROXINE) (test code = T4) 9.4 ug/dL 4.5-13.9 N T7 (FREE THYROXINE INDEX) (test code = T7) 3.19 FTI 1.3-5.1 N THYROID STIMULATING HORMONE (test code = TSH) 3.120 uIU/mL 0.36-3.7 4 N TSH REFERENCE RANGES: EUTHYROID: 0.35 - 4.3 mIU/mL HYPO : > 5.5 mIU/mL HYPER : < 0.35 mIU/mL [id number] 14:45:00* Test Item Value Reference Range Interpretation Comments TROPONIN-I (test code = TROPI) <0.015 ng/mL 0-0.045 N BASIC METABOLIC [id number] 14:31:00* Test Item Value Reference Range Interpretation Comments SODIUM (test code = NA) 140 mmol/L 136-145 N POTASSIUM (test code = K) 3.9 mmol/L 3.5-5.1 N CHLORIDE (test code = CL) 102.0 mmol/L 98-107 N CARBON DIOXIDE (test code = CO2) mmol/L 21-32 ANION GAP (test code = GAP) 10-20 GLUCOSE (test code = GLU) mg/dL 74-106 BLOOD UREA NITROGEN (test code = BUN) mg/dL 7-18 GLOMERULAR FILTRATION RATE (test code = GFR) mL/min >=60 CREATININE (test code = CREAT) mg/dL 0.55-1.02 BUN/CREATININE RATIO (test code = BUN/CREA) 10-20 CALCIUM (test code = CA) mg/dL 8.5-10.1 HEPATIC FUNCTION [id number] 14:31:00* Test Item Value Reference Range Interpretation Comments TOTAL PROTEIN (test code = PROT) gram/dL 6.4-8.2 ALBUMIN (test code = ALB) g/dL 3.4-5.0 GLOBULIN (test code = GLOB) gram/dL 2.7-4.2 ALBUMIN/GLOBULIN RATIO (test code = A/G) 0.75-1.50 BILIRUBIN TOTAL (test code = BILT) mg/dL 0.0-1.0 BILIRUBIN DIRECT (test code = BILD) mg/dL 0.0-0.20 SGOT/AST (test code = AST) IUnit/L 15-37 SGPT/ALT (test code = ALT) IUnit/L 12-78 ALKALINE PHOSPHATASE TOTAL (test code = ALKP) IUnit/L 45-117 [id number] 14:31:00* Test Item Value Reference Range Interpretation Comments LIPASE (test code = LIP) U/L 73.0-393.0 [id number] 14:31:00* Test Item Value Reference Range Interpretation Comments MAGNESIUM (test code = MAG) mg/dL 1.8-2.4 THYROID PROFILE [id number] 14:31:00* Test Item Value Reference Range Interpretation Comments T3 UPTAKE (test code = T3UP) % 30.0-40.0 T4 (THYROXINE) (test code = T4) ug/dL 4.5-13.9 T7 (FREE THYROXINE INDEX) (test code = T7) FTI 1.3-5.1 THYROID STIMULATING HORMONE (test code = TSH) uIU/mL 0.36-3.7 4 [id number] 14:31:00* Test Item Value Reference Range Interpretation Comments TROPONIN-I (test code = TROPI) ng/mL 0-0.045 PROTHROMBIN [id number] 14:31:00* Test Item Value Reference Range Interpretation Comments PROTHROMBIN TIME PATIENT (test code = PTP) 13.5 seconds 9.0-14.0 N INTERNATIONAL NORMAL RATIO (test code = INR) 1.2 0.8-1.2 N The therapeutic range for oral anticoagulant therapy [...] (2.5-3.5) IS PATIENT ON ANTICOAGULANTS? NTHROMBOPLASTIN TIME [id number] 14:31:00* Test Item Value Reference Range Interpretation Comments THROMBOPLASTIN TIME PARTIAL (test code = PTT) 33.4 seconds 25.0-36. 5 N IS PATIENT ON ANTICOAGULANTS? NCBC W/O [id number] 14:27:00* Test Item Value Reference Range Interpretation Comments WHITE BLOOD CELL (test code = WBC) 4.2 K/mm3 4.5-12.5 L RED BLOOD CELL (test code = RBC) 1.45 mill/mm3 3.7-5.2 L HEMOGLOBIN (test code = HGB) 4.3 gram/dL 11.5-15.5 L HEMATOCRIT (test code = HCT) 14.8 % 36.0-46.0 LL Results called to by ORACIO 08/29/18 1427Critical results verified and read back by Nurse? Y MEAN CELL VOLUME (test code = MCV) 102.1 fL 80-98 H MEAN CELL HGB (test code = MCH) 29.7 picogram 27.0-33.0 N MEAN CELL HGB CONCETRATION (test code = MCHC) 29.1 gram/dL 33.0-36. 0 L RED CELL DISTRIBUTION WIDTH (test code = RDW) 15.9 % 11.6-16. 2 N PLATELET COUNT (test code = PLT) 97 K/mm3 150-450 L MEAN PLATELET VOLUME (test code = MPV) 11.2 fL 6.7-11.0 H - XR CHEST 1 [id number] 14:12:00 FAX: Kadie Garcia MD [phone] [place]: St: PRE Name: ALEX [facility]DRUM [facility] : [birth year] Age/S: 67/F [address] [facility] Unit #: [id number] Loc: [place] [address] Phys: Kadie Garcia MD Acct: [id number] Dis Date: Status: PRE ER PHONE #: [phone] Exam Date: 08/29/2018 1355 FAX #: [phone] Reason: Shortness of Breath EXAMS: CPT CODE: [id number] XR CHEST 1 V 16546 HISTORY: Shortness of breath. COMPARISON: July 10, 2018. No acute infiltrates, effusion or congestion is noted. Suboptimal inspiration with dependent changes. Ca rdiomegaly. IMPRESSION: No acute infiltrates , effusion or congestion. Suboptimal inspiration with dependent changes. at 1412 Reported and signed by: José Miguel Elias M.D. CC: Kadie Garcia MD Technol ogist: Arielle Tyson(R); Treva YDOER(R) Trnscrd Date/Time/ By: 08/29/2018 (1412) : By: [email or web address] Orig Print D/T: S: 08/29/2018 (8 415) PAGE 1 Signed Report [id number] 11:42:00* Test Item Value Reference Range Interpretation Comments GLUBED (test code = GLUBED) 145 mg/dL 74-106 H Performed by certified collar turner operator at [facility] [id number] 06:32:00* Test Item Value Reference Range Interpretation Comments GLUBED (test code = GLUBED) 98 mg/dL 74-106 N Performed by certified collar turner operator at [facility] [id number] 05:15:00* Test Item Value Reference Range Interpretation Comments AMMONIA (test code = AMM) 46 umol/L 11-32 H BASIC METABOLIC [id number] 21:31:00* Test Item Value Reference Range Interpretation Comments SODIUM (test code = NA) 136 mmol/L 136-145 N POTASSIUM (test code = K) 3.3 mmol/L 3.5-5.1 L CHLORIDE (test code = CL) 108.0 mmol/L 98-107 H CARBON DIOXIDE (test code = CO2) 21.0 mmol/L 21-32 N ANION GAP (test code = GAP) 10.3 10-20 N GLUCOSE (test code = GLU) 133 mg/dL 74-106 H BLOOD UREA NITROGEN (test code = BUN) 26 mg/dL 7-18 H GLOMERULAR FILTRATION RATE (test code = GFR) 38 mL/min >=60 Estimated GFR by using Modified MDRD formula.Chronic kidney disease is defined as either kidney damageor GFR <60 mL/min/1.73 m2 for >3 months. CREATININE (test code = CREAT) 1.40 mg/dL 0.55-1.02 H Note change in reference range due to change in reagent. BUN/CREATININE RATIO (test code = BUN/CREA) 18.6 10-20 N CALCIUM (test code = CA) 7.5 mg/dL 8.5-10.1 L BASIC METABOLIC [id number] 21:25:00* Test Item Value Reference Range Interpretation Comments SODIUM (test code = NA) 136 mmol/L 136-145 N POTASSIUM (test code = K) 3.3 mmol/L 3.5-5.1 L CHLORIDE (test code = CL) 108.0 mmol/L 98-107 H CARBON DIOXIDE (test code = CO2) mmol/L 21-32 ANION GAP (test code = GAP) 10-20 GLUCOSE (test code = GLU) mg/dL 74-106 BLOOD UREA NITROGEN (test code = BUN) mg/dL 7-18 GLOMERULAR FILTRATION RATE (test code = GFR) mL/min >=60 CREATININE (test code = CREAT) mg/dL 0.55-1.02 BUN/CREATININE RATIO (test code = BUN/CREA) 10-20 CALCIUM (test code = CA) mg/dL 8.5-10.1 [id number] 21:22:00* Test Item Value Reference Range Interpretation Comments GLUBED (test code = GLUBED) 127 mg/dL 74-106 H Performed by certified collar turner operator at [facility] [id number] 16:27:00* Test Item Value Reference Range Interpretation Comments GLUBED (test code = GLUBED) 117 mg/dL 74-106 H Performed by certified collar turner operator at [facility] [id number] 11:34:00* Test Item Value Reference Range Interpretation Comments GLUBED (test code = GLUBED) 116 mg/dL 74-106 H Performed by certified collar turner operator at [facility] [id number] 05:36:00* Test Item Value Reference Range Interpretation Comments GLUBED (test code = GLUBED) 100 mg/dL 74-106 N Performed by certified collar turner operator at [facility] [id number] 05:36:00* Test Item Value Reference Range Interpretation Comments GLUBED (test code = GLUBED) 125 mg/dL 74-106 H Performed by certified collar turner operator at [facility] [id number] 22:45:00* Test Item Value Reference Range Interpretation Comments TROPONIN-I (test code = TROPI) <0.015 ng/mL 0-0.045 N [id number] 17:01:00* Test Item Value Reference Range Interpretation Comments GLUBED (test code = GLUBED) 132 mg/dL 74-106 H Performed by certified collar turner operator at [facility] CBC W/MANUAL [id number] 15:06:00* Test Item Value Reference Range Interpretation Comments WHITE BLOOD CELL (test code = WBC) 2.5 K/mm3 4.5-12.5 L RED BLOOD CELL (test code = RBC) 2.85 mill/mm3 3.7-5.2 L HEMOGLOBIN (test code = HGB) 8.6 gram/dL 11.5-15.5 L HEMATOCRIT (test code = HCT) 26.3 % 36.0-46.0 L MEAN CELL VOLUME (test code = MCV) 92.3 fL 80-98 N MEAN CELL HGB (test code = MCH) 30.2 picogram 27.0-33.0 N MEAN CELL HGB CONCETRATION (test code = MCHC) 32.7 gram/dL 33.0-36. 0 L RED CELL DISTRIBUTION WIDTH (test code = RDW) 16.3 % 11.6-16. 2 H RED CELL DISTRIBUTION WIDTH SD (test code = RDW-SD) 55.0 fL 37 .0-51.0 H PLATELET COUNT (test code = PLT) 56 K/mm3 150-450 L MEAN PLATELET VOLUME (test code = MPV) 10.8 fL 6.7-11.0 N IMMATURE GRANULOCYTE % (test code = IG%) 1.6 % 0.0-5.0 N NUCLEATED RBC % (test code = NRBC%) 0.0 % 0-0 N NEUTROPHIL # (test code = NT#) 1.91 K/mm3 1.8-7.7 N IMMATURE GRANULOCYTE # (test code = IG#) 0.04 x10 3/uL 0-0.03 H LYMPHOCYTE # (test code = LY#) 0.21 K/mm3 1.0-5.0 L MONOCYTE # (test code = MO#) 0.28 K/mm3 0-0.8 N EOSINOPHIL # (test code = EO#) 0.04 K/mm3 0.0-0.5 N BASOPHIL # (test code = BA#) 0.01 K/mm3 0.0-0.2 N NUCLEATED RBC # (test code = NRBC#) 0.00 K/mm3 0.0-0.1 N MANUAL DIFF REQUIRED (test code = MDIFF) YES STAIN ACCEPTABILITY (test code = STN ACCEPTABLE) STAIN ACCEPTABLE TOTAL CELLS COUNTED (test code = TCC) 100 #CELLS SEGMENTED NEUTROPHILS (test code = SEG) 82 % 39-69 H BAND NEUTROPHIL (test code = BAND) 1 % 0-10 N LYMPHOCYTE (test code = LYMPH) 8 % 25-55 L MONOCYTE (test code = MON) 8 % 0-10 N EOSINOPHIL (test code = EOS) 1 % 0.0-5.0 N POIKILOCYTOSIS (test code = POIK) 1+ BASOPHILIC STIPPLING (test code = STP) 1+ ELLIPTOCYTES (test code = ELL) 1+ PLATELET ESTIMATE (test code = PLTEST) ADEQUATE PLATELET MORPHOLOGY (test code = PLTMORPH) NORMAL PT WENT FOR PROCEDURE PER ALEXANDER SOLIMAN @[facility].LAB.SP3 07/04/400635GNX W/MANUAL DIFF 2018-07-04 14:47:00* Test Item Value Reference Range Interpretation Comments WHITE BLOOD CELL (test code = WBC) 2.5 K/mm3 4.5-12.5 L RED BLOOD CELL (test code = RBC) 2.85 mill/mm3 3.7-5.2 L HEMOGLOBIN (test code = HGB) 8.6 gram/dL 11.5-15.5 L HEMATOCRIT (test code = HCT) 26.3 % 36.0-46.0 L MEAN CELL VOLUME (test code = MCV) 92.3 fL 80-98 N MEAN CELL HGB (test code = MCH) 30.2 picogram 27.0-33.0 N MEAN CELL HGB CONCETRATION (test code = MCHC) 32.7 gram/dL 33.0-36. 0 L RED CELL DISTRIBUTION WIDTH (test code = RDW) 16.3 % 11.6-16. 2 H RED CELL DISTRIBUTION WIDTH SD (test code = RDW-SD) 55.0 fL 37 .0-51.0 H PLATELET COUNT (test code = PLT) 56 K/mm3 150-450 L MEAN PLATELET VOLUME (test code = MPV) 10.8 fL 6.7-11.0 N IMMATURE GRANULOCYTE % (test code = IG%) 1.6 % 0.0-5.0 N NUCLEATED RBC % (test code = NRBC%) 0.0 % 0-0 N NEUTROPHIL # (test code = NT#) 1.91 K/mm3 1.8-7.7 N IMMATURE GRANULOCYTE # (test code = IG#) 0.04 x10 3/uL 0-0.03 H LYMPHOCYTE # (test code = LY#) 0.21 K/mm3 1.0-5.0 L MONOCYTE # (test code = MO#) 0.28 K/mm3 0-0.8 N EOSINOPHIL # (test code = EO#) 0.04 K/mm3 0.0-0.5 N BASOPHIL # (test code = BA#) 0.01 K/mm3 0.0-0.2 N NUCLEATED RBC # (test code = NRBC#) 0.00 K/mm3 0.0-0.1 N MANUAL DIFF REQUIRED (test code = MDIFF) YES STAIN ACCEPTABILITY (test code = STN ACCEPTABLE) STAIN ACCEPTABLE TOTAL CELLS COUNTED (test code = TCC) 100 #CELLS SEGMENTED NEUTROPHILS (test code = SEG) 82 % 39-69 H BAND NEUTROPHIL (test code = BAND) 1 % 0-10 N LYMPHOCYTE (test code = LYMPH) 8 % 25-55 L MONOCYTE (test code = MON) 8 % 0-10 N EOSINOPHIL (test code = EOS) 1 % 0.0-5.0 N POIKILOCYTOSIS (test code = POIK) 1+ BASOPHILIC STIPPLING (test code = STP) 1+ ELLIPTOCYTES (test code = ELL) 1+ PLATELET ESTIMATE (test code = PLTEST) ADEQUATE PLATELET MORPHOLOGY (test code = PLTMORPH) PT WENT FOR PROCEDURE PER ALEXANDER SOLIMAN @[facility].LAB.SP3 07/04/220277- XR SMALL INTESTINE 2018-07-04 14:33:00 FAX: Gerson Roque MD [phone] [place]: St: ADM FAX: John Motta MD [phone] Name[facility] 1950 Age/S: 67/F [address] [facility] Unit #: [id number] Loc: V.[address] [place] [address] Phys: Gerson Messina MD Acct: [id number] Dis Date: Status: ADM IN PHONE #: [phone] Exam Date: 07/04/2018 1226 FAX #: [phone] Reason: anemia EXAMS: CPT CODE: [id number] XR SMALL INTESTINE 64562 HISTORY: Anemia. COMPARISON: None available. Auricular Therapist view of the abdomen demonstrating mild distention of the small and large bowel loops. Gastric folds are moderately thickened. Correlate for gastritis. The small bowel loops are normal in caliber. No thickening. No displacement. Transit time to the colon is within normal limits. Terminal ileum is poorly visible but normal in appearance. IMPRESSION: Normal small bowel series without enteritis. No thickening of small bowel folds or displacement. Incidental note made of moderately thickened gastric folds suggestive of gastritis. Fluoroscopy time utilized was 0.5 minutes and 18 images were obtained during the study. at 1433 Reported and signed by: José Miguel Elias M.D. CC: Gerson Messina MD; John Lopez Technologist: RT MINE(More) Trnscrd Date/Time/By: 07/04/2018 (7983) : By: [email or web address] Orig Print D/T: S: 07/04/2018 (0699) PAGE 1 Signed Report CBC W/MANUAL [id number] 13:46:00* Test Item Value Reference Range Interpretation Comments WHITE BLOOD CELL (test code = WBC) 2.5 K/mm3 4.5-12.5 L RED BLOOD CELL (test code = RBC) 2.85 mill/mm3 3.7-5.2 L HEMOGLOBIN (test code = HGB) 8.6 gram/dL 11.5-15.5 L HEMATOCRIT (test code = HCT) 26.3 % 36.0-46.0 L MEAN CELL VOLUME (test code = MCV) 92.3 fL 80-98 N MEAN CELL HGB (test code = MCH) 30.2 picogram 27.0-33.0 N MEAN CELL HGB CONCETRATION (test code = MCHC) 32.7 gram/dL 33.0-36. 0 L RED CELL DISTRIBUTION WIDTH (test code = RDW) 16.3 % 11.6-16. 2 H RED CELL DISTRIBUTION WIDTH SD (test code = RDW-SD) 55.0 fL 37 .0-51.0 H PLATELET COUNT (test code = PLT) 56 K/mm3 150-450 L MEAN PLATELET VOLUME (test code = MPV) 10.8 fL 6.7-11.0 N IMMATURE GRANULOCYTE % (test code = IG%) 1.6 % 0.0-5.0 N NUCLEATED RBC % (test code = NRBC%) 0.0 % 0-0 N NEUTROPHIL # (test code = NT#) 1.91 K/mm3 1.8-7.7 N IMMATURE GRANULOCYTE # (test code = IG#) 0.04 x10 3/uL 0-0.03 H LYMPHOCYTE # (test code = LY#) 0.21 K/mm3 1.0-5.0 L MONOCYTE # (test code = MO#) 0.28 K/mm3 0-0.8 N EOSINOPHIL # (test code = EO#) 0.04 K/mm3 0.0-0.5 N BASOPHIL # (test code = BA#) 0.01 K/mm3 0.0-0.2 N NUCLEATED RBC # (test code = NRBC#) 0.00 K/mm3 0.0-0.1 N MANUAL DIFF REQUIRED (test code = MDIFF) YES STAIN ACCEPTABILITY (test code = STN ACCEPTABLE) TOTAL CELLS COUNTED (test code = TCC) #CELLS SEGMENTED NEUTROPHILS (test code = SEG) % 39-69 LYMPHOCYTE (test code = LYMPH) % 25-55 MONOCYTE (test code = MON) % 0-10 EOSINOPHIL (test code = EOS) % 0.0-5.0 CABOT RINGS (test code = CAB) MORPHOLOGY COMMENT (test code = MOC) PLATELET ESTIMATE (test code = PLTEST) PLATELET MORPHOLOGY (test code = PLTMORPH) PT WENT FOR PROCEDURE PER RN JANNY @[email or web address] 07/04/297655IRX W/MANUAL DIFF 2018-07-04 13:46:00* Test Item Value Reference Range Interpretation Comments WHITE BLOOD CELL (test code = WBC) 2.5 K/mm3 4.5-12.5 L RED BLOOD CELL (test code = RBC) 2.85 mill/mm3 3.7-5.2 L HEMOGLOBIN (test code = HGB) 8.6 gram/dL 11.5-15.5 L HEMATOCRIT (test code = HCT) 26.3 % 36.0-46.0 L MEAN CELL VOLUME (test code = MCV) 92.3 fL 80-98 N MEAN CELL HGB (test code = MCH) 30.2 picogram 27.0-33.0 N MEAN CELL HGB CONCETRATION (test code = MCHC) 32.7 gram/dL 33.0-36. 0 L RED CELL DISTRIBUTION WIDTH (test code = RDW) 16.3 % 11.6-16. 2 H RED CELL DISTRIBUTION WIDTH SD (test code = RDW-SD) 55.0 fL 37 .0-51.0 H PLATELET COUNT (test code = PLT) 56 K/mm3 150-450 L MEAN PLATELET VOLUME (test code = MPV) 10.8 fL 6.7-11.0 N IMMATURE GRANULOCYTE % (test code = IG%) 1.6 % 0.0-5.0 N NUCLEATED RBC % (test code = NRBC%) 0.0 % 0-0 N NEUTROPHIL # (test code = NT#) 1.91 K/mm3 1.8-7.7 N IMMATURE GRANULOCYTE # (test code = IG#) 0.04 x10 3/uL 0-0.03 H LYMPHOCYTE # (test code = LY#) 0.21 K/mm3 1.0-5.0 L MONOCYTE # (test code = MO#) 0.28 K/mm3 0-0.8 N EOSINOPHIL # (test code = EO#) 0.04 K/mm3 0.0-0.5 N BASOPHIL # (test code = BA#) 0.01 K/mm3 0.0-0.2 N NUCLEATED RBC # (test code = NRBC#) 0.00 K/mm3 0.0-0.1 N MANUAL DIFF REQUIRED (test code = MDIFF) YES STAIN ACCEPTABILITY (test code = STN ACCEPTABLE) TOTAL CELLS COUNTED (test code = TCC) #CELLS SEGMENTED NEUTROPHILS (test code = SEG) % 39-69 LYMPHOCYTE (test code = LYMPH) % 25-55 MONOCYTE (test code = MON) % 0-10 EOSINOPHIL (test code = EOS) % 0.0-5.0 MORPHOLOGY COMMENT (test code = MOC) PLATELET ESTIMATE (test code = PLTEST) PLATELET MORPHOLOGY (test code = PLTMORPH) PT WENT FOR PROCEDURE PER ALEXANDER SOLIMAN @[email or web address] 07/04/214569JBJ W/MANUAL DIFF 2018-07-04 13:46:00* Test Item Value Reference Range Interpretation Comments WHITE BLOOD CELL (test code = WBC) 2.5 K/mm3 4.5-12.5 L RED BLOOD CELL (test code = RBC) 2.85 mill/mm3 3.7-5.2 L HEMOGLOBIN (test code = HGB) 8.6 gram/dL 11.5-15.5 L HEMATOCRIT (test code = HCT) 26.3 % 36.0-46.0 L MEAN CELL VOLUME (test code = MCV) 92.3 fL 80-98 N MEAN CELL HGB (test code = MCH) 30.2 picogram 27.0-33.0 N MEAN CELL HGB CONCETRATION (test code = MCHC) 32.7 gram/dL 33.0-36. 0 L RED CELL DISTRIBUTION WIDTH (test code = RDW) 16.3 % 11.6-16. 2 H RED CELL DISTRIBUTION WIDTH SD (test code = RDW-SD) 55.0 fL 37 .0-51.0 H PLATELET COUNT (test code = PLT) 56 K/mm3 150-450 L MEAN PLATELET VOLUME (test code = MPV) 10.8 fL 6.7-11.0 N IMMATURE GRANULOCYTE % (test code = IG%) 1.6 % 0.0-5.0 N NUCLEATED RBC % (test code = NRBC%) 0.0 % 0-0 N NEUTROPHIL # (test code = NT#) 1.91 K/mm3 1.8-7.7 N IMMATURE GRANULOCYTE # (test code = IG#) 0.04 x10 3/uL 0-0.03 H LYMPHOCYTE # (test code = LY#) 0.21 K/mm3 1.0-5.0 L MONOCYTE # (test code = MO#) 0.28 K/mm3 0-0.8 N EOSINOPHIL # (test code = EO#) 0.04 K/mm3 0.0-0.5 N BASOPHIL # (test code = BA#) 0.01 K/mm3 0.0-0.2 N NUCLEATED RBC # (test code = NRBC#) 0.00 K/mm3 0.0-0.1 N MANUAL DIFF REQUIRED (test code = MDIFF) YES STAIN ACCEPTABILITY (test code = STN ACCEPTABLE) TOTAL CELLS COUNTED (test code = TCC) #CELLS SEGMENTED NEUTROPHILS (test code = SEG) % 39-69 LYMPHOCYTE (test code = LYMPH) % 25-55 MONOCYTE (test code = MON) % 0-10 MORPHOLOGY COMMENT (test code = MOC) PLATELET ESTIMATE (test code = PLTEST) PLATELET MORPHOLOGY (test code = PLTMORPH) PT WENT FOR PROCEDURE PER ALEXANDER SOLIMAN @[email or web address] 07/04/532894HRT W/MANUAL DIFF 2018-07-04 13:45:00* Test Item Value Reference Range Interpretation Comments WHITE BLOOD CELL (test code = WBC) 2.5 K/mm3 4.5-12.5 L RED BLOOD CELL (test code = RBC) 2.85 mill/mm3 3.7-5.2 L HEMOGLOBIN (test code = HGB) 8.6 gram/dL 11.5-15.5 L HEMATOCRIT (test code = HCT) 26.3 % 36.0-46.0 L MEAN CELL VOLUME (test code = MCV) 92.3 fL 80-98 N MEAN CELL HGB (test code = MCH) 30.2 picogram 27.0-33.0 N MEAN CELL HGB CONCETRATION (test code = MCHC) 32.7 gram/dL 33.0-36. 0 L RED CELL DISTRIBUTION WIDTH (test code = RDW) 16.3 % 11.6-16. 2 H RED CELL DISTRIBUTION WIDTH SD (test code = RDW-SD) 55.0 fL 37 .0-51.0 H PLATELET COUNT (test code = PLT) 56 K/mm3 150-450 L MEAN PLATELET VOLUME (test code = MPV) 10.8 fL 6.7-11.0 N IMMATURE GRANULOCYTE % (test code = IG%) 1.6 % 0.0-5.0 N NUCLEATED RBC % (test code = NRBC%) 0.0 % 0-0 N NEUTROPHIL # (test code = NT#) 1.91 K/mm3 1.8-7.7 N IMMATURE GRANULOCYTE # (test code = IG#) 0.04 x10 3/uL 0-0.03 H LYMPHOCYTE # (test code = LY#) 0.21 K/mm3 1.0-5.0 L MONOCYTE # (test code = MO#) 0.28 K/mm3 0-0.8 N EOSINOPHIL # (test code = EO#) 0.04 K/mm3 0.0-0.5 N BASOPHIL # (test code = BA#) 0.01 K/mm3 0.0-0.2 N NUCLEATED RBC # (test code = NRBC#) 0.00 K/mm3 0.0-0.1 N MANUAL DIFF REQUIRED (test code = MDIFF) YES STAIN ACCEPTABILITY (test code = STN ACCEPTABLE) TOTAL CELLS COUNTED (test code = TCC) #CELLS SEGMENTED NEUTROPHILS (test code = SEG) % 39-69 LYMPHOCYTE (test code = LYMPH) % 25-55 MONOCYTE (test code = MON) % 0-10 EOSINOPHIL (test code = EOS) % 0.0-5.0 CABOT RINGS (test code = CAB) MORPHOLOGY COMMENT (test code = MOC) PLATELET ESTIMATE (test code = PLTEST) PLATELET MORPHOLOGY (test code = PLTMORPH) PT WENT FOR PROCEDURE PER ALEXANDER SOLIMAN @[facility].[email or web address] 07/04/[id number] W/MANUAL DIFF 2018-07-04 13:45:00* Test Item Value Reference Range Interpretation Comments WHITE BLOOD CELL (test code = WBC) 2.5 K/mm3 4.5-12.5 L RED BLOOD CELL (test code = RBC) 2.85 mill/mm3 3.7-5.2 L HEMOGLOBIN (test code = HGB) 8.6 gram/dL 11.5-15.5 L HEMATOCRIT (test code = HCT) 26.3 % 36.0-46.0 L MEAN CELL VOLUME (test code = MCV) 92.3 fL 80-98 N MEAN CELL HGB (test code = MCH) 30.2 picogram 27.0-33.0 N MEAN CELL HGB CONCETRATION (test code = MCHC) 32.7 gram/dL 33.0-36. 0 L RED CELL DISTRIBUTION WIDTH (test code = RDW) 16.3 % 11.6-16. 2 H RED CELL DISTRIBUTION WIDTH SD (test code = RDW-SD) 55.0 fL 37 .0-51.0 H PLATELET COUNT (test code = PLT) 56 K/mm3 150-450 L MEAN PLATELET VOLUME (test code = MPV) 10.8 fL 6.7-11.0 N IMMATURE GRANULOCYTE % (test code = IG%) 1.6 % 0.0-5.0 N NUCLEATED RBC % (test code = NRBC%) 0.0 % 0-0 N NEUTROPHIL # (test code = NT#) 1.91 K/mm3 1.8-7.7 N IMMATURE GRANULOCYTE # (test code = IG#) 0.04 x10 3/uL 0-0.03 H LYMPHOCYTE # (test code = LY#) 0.21 K/mm3 1.0-5.0 L MONOCYTE # (test code = MO#) 0.28 K/mm3 0-0.8 N EOSINOPHIL # (test code = EO#) 0.04 K/mm3 0.0-0.5 N BASOPHIL # (test code = BA#) 0.01 K/mm3 0.0-0.2 N NUCLEATED RBC # (test code = NRBC#) 0.00 K/mm3 0.0-0.1 N MANUAL DIFF REQUIRED (test code = MDIFF) YES STAIN ACCEPTABILITY (test code = STN ACCEPTABLE) TOTAL CELLS COUNTED (test code = TCC) #CELLS SEGMENTED NEUTROPHILS (test code = SEG) % 39-69 LYMPHOCYTE (test code = LYMPH) % 25-55 MONOCYTE (test code = MON) % 0-10 EOSINOPHIL (test code = EOS) % 0.0-5.0 CABOT RINGS (test code = CAB) MORPHOLOGY COMMENT (test code = MOC) PLATELET ESTIMATE (test code = PLTEST) PLATELET MORPHOLOGY (test code = PLTMORPH) PT WENT FOR PROCEDURE PER ALEXANDER SOLIMAN @[facility].[email or web address] 07/04/[id number] 13:11:00* Test Item Value Reference Range Interpretation Comments SERUM IRON (test code = IRON) 82 ug/dL 50-175 N VITAMIN [id number] 13:11:00* Test Item Value Reference Range Interpretation Comments VITAMIN B12 (test code = VITB12) 878 pg/mL 193-986 N FOLIC [id number] 13:11:00* Test Item Value Reference Range Interpretation Comments FOLIC ACID (test code = FOL) 7.2 ng/mL 3.10-17.50 N [id number] 13:11:00* Test Item Value Reference Range Interpretation Comments FERRITIN (test code = NGUYỄN) 10 ng/mL 8-388 N VITAMIN D 1,85-[id number] 13:11:00* Test Item Value Reference Range Interpretation Comments VITAMIN D 1,25-DIHYDROXY (test code = UIBI791) 35.4 pg/mL 19.9-79 .3 Performed At: [facility] [id number] Sanjai MD Ph:[id number] performed at: [facility] [address] [place] [address] [id number] 04:28:00* Test Item Value Reference Range Interpretation Comments GLUBED (test code = GLUBED) 137 mg/dL 74-106 H Performed by certified collar turner operator at [facility] [id number] 21:06:00* Test Item Value Reference Range Interpretation Comments GLUBED (test code = GLUBED) 159 mg/dL 74-106 H Performed by certified collar turner operator at [facility] BASIC METABOLIC [id number] 17:39:00* Test Item Value Reference Range Interpretation Comments SODIUM (test code = NA) 134 mmol/L 136-145 L POTASSIUM (test code = K) 3.6 mmol/L 3.5-5.1 N CHLORIDE (test code = CL) 100.0 mmol/L 98-107 N CARBON DIOXIDE (test code = CO2) 28.0 mmol/L 21-32 N ANION GAP (test code = GAP) 9.6 10-20 L GLUCOSE (test code = GLU) 149 mg/dL 74-106 H BLOOD UREA NITROGEN (test code = BUN) 30 mg/dL 7-18 H GLOMERULAR FILTRATION RATE (test code = GFR) 25 mL/min >=60 Estimated GFR by using Modified MDRD formula.Chronic kidney disease is defined as either kidney damageor GFR <60 mL/min/1.73 m2 for >3 months. CREATININE (test code = CREAT) 2.00 mg/dL 0.55-1.02 H Note change in reference range due to change in reagent. BUN/CREATININE RATIO (test code = BUN/CREA) 15.0 10-20 N CALCIUM (test code = CA) 8.2 mg/dL 8.5-10.1 L LACTIC [id number] 17:35:00* Test Item Value Reference Range Interpretation Comments LACTIC ACID (test code = LACT) 1.7 mmol/L 0.4-1.9 N BASIC METABOLIC [id number] 17:35:00* Test Item Value Reference Range Interpretation Comments SODIUM (test code = NA) 134 mmol/L 136-145 L POTASSIUM (test code = K) 3.6 mmol/L 3.5-5.1 N CHLORIDE (test code = CL) 100.0 mmol/L 98-107 N CARBON DIOXIDE (test code = CO2) mmol/L 21-32 ANION GAP (test code = GAP) 10-20 GLUCOSE (test code = GLU) mg/dL 74-106 BLOOD UREA NITROGEN (test code = BUN) mg/dL 7-18 GLOMERULAR FILTRATION RATE (test code = GFR) mL/min >=60 CREATININE (test code = CREAT) mg/dL 0.55-1.02 BUN/CREATININE RATIO (test code = BUN/CREA) 10-20 CALCIUM (test code = CA) mg/dL 8.5-10.1 CBC W/O [id number] 17:30:00* Test Item Value Reference Range Interpretation Comments WHITE BLOOD CELL (test code = WBC) 4.1 K/mm3 4.5-12.5 L RED BLOOD CELL (test code = RBC) 2.41 mill/mm3 3.7-5.2 L HEMOGLOBIN (test code = HGB) 7.1 gram/dL 11.5-15.5 L HEMATOCRIT (test code = HCT) 23.0 % 36.0-46.0 L MEAN CELL VOLUME (test code = MCV) 95.4 fL 80-98 N MEAN CELL HGB (test code = MCH) 29.5 picogram 27.0-33.0 N MEAN CELL HGB CONCETRATION (test code = MCHC) 30.9 gram/dL 33.0-36. 0 L RED CELL DISTRIBUTION WIDTH (test code = RDW) 16.4 % 11.6-16. 2 H PLATELET COUNT (test code = PLT) 64 K/mm3 150-450 L MEAN PLATELET VOLUME (test code = MPV) 11.4 fL 6.7-11.0 H [id number] 17:10:00* Test Item Value Reference Range Interpretation Comments GLUBED (test code = GLUBED) 138 mg/dL 74-106 H Performed by certified collar turner operator at [facility] - NM ACUTE GI BLOOD [id number] 13:59:00 FAX: Gerson Roque MD [phone] [place]: St: [facility] FAX: John Motta MD [phone] Name: ALEX [facility] : 1950 Age/S: 67/F [address] [facility] Unit #: [id number] Loc: [id number] [place] [address] Phys: Gerson Messina MD Acct: [id number] Dis Date: Status: ADM IN PHONE #: [phone] Exam Date: 07/03/2018 1230 FAX #: [phone] Reason: ANEMIA EXAMS: CPT CODE: [id number] NM ACUTE GI BLOOD LOSS 88196 HISTORY: Anemia. COMPARISON: None available. GI bleeding study: 27.7 mCi of technetium 99 M tagged autologous red blood cell administered. Images obtained in sequential fashion over the abdomen. Normal uptake within the liver, spleen and heart. Excre tion from the kidneys into the bladder. No areas of abnormal uptake to sug gest active bleeding. IMPRESSION: No abn ormal uptake to suggest active bleed. at 6775 Reported and signed b y: José Miguel Elias M.D. CC: Gerson Messina MD; John Lopez Technologist: Lester Calvillo [facility] Trnscrd Date/Time/By: 07/03/2018 (2920) : By: [email or web address] Orig Print D/T: S: 07/03/2018 (3094) PAGE 1 Signed Report [id number] 13:42:00 * Test Item Value Reference Range Interpretation Comments GLUBED (test code = GLUBED) 129 mg/dL 74-106 H Performed by certified collar turner operator at [facility] CBC W/MANUAL [id number] 11:48:00* Test Item Value Reference Range Interpretation Comments WHITE BLOOD CELL (test code = WBC) 4.7 K/mm3 4.5-12.5 N RED BLOOD CELL (test code = RBC) 2.81 mill/mm3 3.7-5.2 L HEMOGLOBIN (test code = HGB) 8.3 gram/dL 11.5-15.5 L HEMATOCRIT (test code = HCT) 27.0 % 36.0-46.0 L MEAN CELL VOLUME (test code = MCV) 96.1 fL 80-98 N MEAN CELL HGB (test code = MCH) 29.5 picogram 27.0-33.0 N MEAN CELL HGB CONCETRATION (test code = MCHC) 30.7 gram/dL 33.0-36. 0 L RED CELL DISTRIBUTION WIDTH (test code = RDW) 16.5 % 11.6-16. 2 H RED CELL DISTRIBUTION WIDTH SD (test code = RDW-SD) 57.5 fL 37 .0-51.0 H PLATELET COUNT (test code = PLT) 50 K/mm3 150-450 L RESULT VERIFIED BY REPEAT ANALYSIS MEAN PLATELET VOLUME (test code = MPV) 12.2 fL 6.7-11.0 H IMMATURE GRANULOCYTE % (test code = IG%) 0.6 % 0.0-5.0 N NUCLEATED RBC % (test code = NRBC%) 0.0 % 0-0 N NEUTROPHIL # (test code = NT#) 3.95 K/mm3 1.8-7.7 N IMMATURE GRANULOCYTE # (test code = IG#) 0.03 x10 3/uL 0-0.03 N LYMPHOCYTE # (test code = LY#) 0.25 K/mm3 1.0-5.0 L MONOCYTE # (test code = MO#) 0.39 K/mm3 0-0.8 N EOSINOPHIL # (test code = EO#) 0.02 K/mm3 0.0-0.5 N BASOPHIL # (test code = BA#) 0.01 K/mm3 0.0-0.2 N NUCLEATED RBC # (test code = NRBC#) 0.00 K/mm3 0.0-0.1 N MANUAL DIFF REQUIRED (test code = MDIFF) YES STAIN ACCEPTABILITY (test code = STN ACCEPTABLE) STAIN ACCEPTABLE TOTAL CELLS COUNTED (test code = TCC) 114 #CELLS SEGMENTED NEUTROPHILS (test code = SEG) 92.1 % 39-69 H BAND NEUTROPHIL (test code = BAND) 0 % 0-10 N LYMPHOCYTE (test code = LYMPH) 1.7 % 25-55 L REACTIVE LYMPH (test code = RELYMPH) 0 % MONOCYTE (test code = MON) 5.3 % 0-10 N EOSINOPHIL (test code = EOS) 0 % 0.0-5.0 N BASOPHIL (test code = BASO) 0 % 0-1.0 N METAMYELOCYTE (test code = META) 0.9 % 0-0 H MYELOCYTE (test code = MYELO) 0 % 0.0-0.0 N PROMYELOCYTE (test code = PROM) 0 % 0-0 N MORPHOLOGY COMMENT (test code = MOC) NORMAL PLATELET ESTIMATE (test code = PLTEST) DECREASED PLATELET MORPHOLOGY (test code = PLTMORPH) NORMAL IMMATURE FORMS (test code = IMMAT) 0 % 0-0 N CBC W/MANUAL [id number] 09:21:00* Test Item Value Reference Range Interpretation Comments WHITE BLOOD CELL (test code = WBC) 4.7 K/mm3 4.5-12.5 N RED BLOOD CELL (test code = RBC) 2.81 mill/mm3 3.7-5.2 L HEMOGLOBIN (test code = HGB) 8.3 gram/dL 11.5-15.5 L HEMATOCRIT (test code = HCT) 27.0 % 36.0-46.0 L MEAN CELL VOLUME (test code = MCV) 96.1 fL 80-98 N MEAN CELL HGB (test code = MCH) 29.5 picogram 27.0-33.0 N MEAN CELL HGB CONCETRATION (test code = MCHC) 30.7 gram/dL 33.0-36. 0 L RED CELL DISTRIBUTION WIDTH (test code = RDW) 16.5 % 11.6-16. 2 H RED CELL DISTRIBUTION WIDTH SD (test code = RDW-SD) 57.5 fL 37 .0-51.0 H PLATELET COUNT (test code = PLT) 50 K/mm3 150-450 L RESULT VERIFIED BY REPEAT ANALYSIS MEAN PLATELET VOLUME (test code = MPV) 12.2 fL 6.7-11.0 H IMMATURE GRANULOCYTE % (test code = IG%) 0.6 % 0.0-5.0 N NUCLEATED RBC % (test code = NRBC%) 0.0 % 0-0 N NEUTROPHIL # (test code = NT#) 3.95 K/mm3 1.8-7.7 N IMMATURE GRANULOCYTE # (test code = IG#) 0.03 x10 3/uL 0-0.03 N LYMPHOCYTE # (test code = LY#) 0.25 K/mm3 1.0-5.0 L MONOCYTE # (test code = MO#) 0.39 K/mm3 0-0.8 N EOSINOPHIL # (test code = EO#) 0.02 K/mm3 0.0-0.5 N BASOPHIL # (test code = BA#) 0.01 K/mm3 0.0-0.2 N NUCLEATED RBC # (test code = NRBC#) 0.00 K/mm3 0.0-0.1 N MANUAL DIFF REQUIRED (test code = MDIFF) YES STAIN ACCEPTABILITY (test code = STN ACCEPTABLE) TOTAL CELLS COUNTED (test code = TCC) #CELLS SEGMENTED NEUTROPHILS (test code = SEG) % 39-69 LYMPHOCYTE (test code = LYMPH) % 25-55 MONOCYTE (test code = MON) % 0-10 EOSINOPHIL (test code = EOS) % 0.0-5.0 CABOT RINGS (test code = CAB) MORPHOLOGY COMMENT (test code = MOC) PLATELET ESTIMATE (test code = PLTEST) PLATELET MORPHOLOGY (test code = PLTMORPH) CBC W/MANUAL [id number] 09:21:00* Test Item Value Reference Range Interpretation Comments WHITE BLOOD CELL (test code = WBC) 4.7 K/mm3 4.5-12.5 N RED BLOOD CELL (test code = RBC) 2.81 mill/mm3 3.7-5.2 L HEMOGLOBIN (test code = HGB) 8.3 gram/dL 11.5-15.5 L HEMATOCRIT (test code = HCT) 27.0 % 36.0-46.0 L MEAN CELL VOLUME (test code = MCV) 96.1 fL 80-98 N MEAN CELL HGB (test code = MCH) 29.5 picogram 27.0-33.0 N MEAN CELL HGB CONCETRATION (test code = MCHC) 30.7 gram/dL 33.0-36. 0 L RED CELL DISTRIBUTION WIDTH (test code = RDW) 16.5 % 11.6-16. 2 H RED CELL DISTRIBUTION WIDTH SD (test code = RDW-SD) 57.5 fL 37 .0-51.0 H PLATELET COUNT (test code = PLT) 50 K/mm3 150-450 L RESULT VERIFIED BY REPEAT ANALYSIS MEAN PLATELET VOLUME (test code = MPV) 12.2 fL 6.7-11.0 H IMMATURE GRANULOCYTE % (test code = IG%) 0.6 % 0.0-5.0 N NUCLEATED RBC % (test code = NRBC%) 0.0 % 0-0 N NEUTROPHIL # (test code = NT#) 3.95 K/mm3 1.8-7.7 N IMMATURE GRANULOCYTE # (test code = IG#) 0.03 x10 3/uL 0-0.03 N LYMPHOCYTE # (test code = LY#) 0.25 K/mm3 1.0-5.0 L MONOCYTE # (test code = MO#) 0.39 K/mm3 0-0.8 N EOSINOPHIL # (test code = EO#) 0.02 K/mm3 0.0-0.5 N BASOPHIL # (test code = BA#) 0.01 K/mm3 0.0-0.2 N NUCLEATED RBC # (test code = NRBC#) 0.00 K/mm3 0.0-0.1 N MANUAL DIFF REQUIRED (test code = MDIFF) YES STAIN ACCEPTABILITY (test code = STN ACCEPTABLE) TOTAL CELLS COUNTED (test code = TCC) #CELLS SEGMENTED NEUTROPHILS (test code = SEG) % 39-69 LYMPHOCYTE (test code = LYMPH) % 25-55 MONOCYTE (test code = MON) % 0-10 EOSINOPHIL (test code = EOS) % 0.0-5.0 MORPHOLOGY COMMENT (test code = MOC) PLATELET ESTIMATE (test code = PLTEST) PLATELET MORPHOLOGY (test code = PLTMORPH) CBC W/MANUAL [id number] 09:21:00* Test Item Value Reference Range Interpretation Comments WHITE BLOOD CELL (test code = WBC) 4.7 K/mm3 4.5-12.5 N RED BLOOD CELL (test code = RBC) 2.81 mill/mm3 3.7-5.2 L HEMOGLOBIN (test code = HGB) 8.3 gram/dL 11.5-15.5 L HEMATOCRIT (test code = HCT) 27.0 % 36.0-46.0 L MEAN CELL VOLUME (test code = MCV) 96.1 fL 80-98 N MEAN CELL HGB (test code = MCH) 29.5 picogram 27.0-33.0 N MEAN CELL HGB CONCETRATION (test code = MCHC) 30.7 gram/dL 33.0-36. 0 L RED CELL DISTRIBUTION WIDTH (test code = RDW) 16.5 % 11.6-16. 2 H RED CELL DISTRIBUTION WIDTH SD (test code = RDW-SD) 57.5 fL 37 .0-51.0 H PLATELET COUNT (test code = PLT) 50 K/mm3 150-450 L RESULT VERIFIED BY REPEAT ANALYSIS MEAN PLATELET VOLUME (test code = MPV) 12.2 fL 6.7-11.0 H IMMATURE GRANULOCYTE % (test code = IG%) 0.6 % 0.0-5.0 N NUCLEATED RBC % (test code = NRBC%) 0.0 % 0-0 N NEUTROPHIL # (test code = NT#) 3.95 K/mm3 1.8-7.7 N IMMATURE GRANULOCYTE # (test code = IG#) 0.03 x10 3/uL 0-0.03 N LYMPHOCYTE # (test code = LY#) 0.25 K/mm3 1.0-5.0 L MONOCYTE # (test code = MO#) 0.39 K/mm3 0-0.8 N EOSINOPHIL # (test code = EO#) 0.02 K/mm3 0.0-0.5 N BASOPHIL # (test code = BA#) 0.01 K/mm3 0.0-0.2 N NUCLEATED RBC # (test code = NRBC#) 0.00 K/mm3 0.0-0.1 N MANUAL DIFF REQUIRED (test code = MDIFF) YES STAIN ACCEPTABILITY (test code = STN ACCEPTABLE) TOTAL CELLS COUNTED (test code = TCC) #CELLS SEGMENTED NEUTROPHILS (test code = SEG) % 39-69 LYMPHOCYTE (test code = LYMPH) % 25-55 MONOCYTE (test code = MON) % 0-10 MORPHOLOGY COMMENT (test code = MOC) PLATELET ESTIMATE (test code = PLTEST) PLATELET MORPHOLOGY (test code = PLTMORPH) CBC W/MANUAL [id number] 09:20:00* Test Item Value Reference Range Interpretation Comments WHITE BLOOD CELL (test code = WBC) 4.7 K/mm3 4.5-12.5 N RED BLOOD CELL (test code = RBC) 2.81 mill/mm3 3.7-5.2 L HEMOGLOBIN (test code = HGB) 8.3 gram/dL 11.5-15.5 L HEMATOCRIT (test code = HCT) 27.0 % 36.0-46.0 L MEAN CELL VOLUME (test code = MCV) 96.1 fL 80-98 N MEAN CELL HGB (test code = MCH) 29.5 picogram 27.0-33.0 N MEAN CELL HGB CONCETRATION (test code = MCHC) 30.7 gram/dL 33.0-36. 0 L RED CELL DISTRIBUTION WIDTH (test code = RDW) 16.5 % 11.6-16. 2 H RED CELL DISTRIBUTION WIDTH SD (test code = RDW-SD) 57.5 fL 37 .0-51.0 H PLATELET COUNT (test code = PLT) 50 K/mm3 150-450 L RESULT VERIFIED BY REPEAT ANALYSIS MEAN PLATELET VOLUME (test code = MPV) 12.2 fL 6.7-11.0 H IMMATURE GRANULOCYTE % (test code = IG%) 0.6 % 0.0-5.0 N NUCLEATED RBC % (test code = NRBC%) 0.0 % 0-0 N NEUTROPHIL # (test code = NT#) 3.95 K/mm3 1.8-7.7 N IMMATURE GRANULOCYTE # (test code = IG#) 0.03 x10 3/uL 0-0.03 N LYMPHOCYTE # (test code = LY#) 0.25 K/mm3 1.0-5.0 L MONOCYTE # (test code = MO#) 0.39 K/mm3 0-0.8 N EOSINOPHIL # (test code = EO#) 0.02 K/mm3 0.0-0.5 N BASOPHIL # (test code = BA#) 0.01 K/mm3 0.0-0.2 N NUCLEATED RBC # (test code = NRBC#) 0.00 K/mm3 0.0-0.1 N MANUAL DIFF REQUIRED (test code = MDIFF) YES STAIN ACCEPTABILITY (test code = STN ACCEPTABLE) TOTAL CELLS COUNTED (test code = TCC) #CELLS SEGMENTED NEUTROPHILS (test code = SEG) % 39-69 LYMPHOCYTE (test code = LYMPH) % 25-55 MONOCYTE (test code = MON) % 0-10 EOSINOPHIL (test code = EOS) % 0.0-5.0 CABOT RINGS (test code = CAB) MORPHOLOGY COMMENT (test code = MOC) PLATELET ESTIMATE (test code = PLTEST) PLATELET MORPHOLOGY (test code = PLTMORPH) CBC W/MANUAL [id number] 09:20:00* Test Item Value Reference Range Interpretation Comments WHITE BLOOD CELL (test code = WBC) 4.7 K/mm3 4.5-12.5 N RED BLOOD CELL (test code = RBC) 2.81 mill/mm3 3.7-5.2 L HEMOGLOBIN (test code = HGB) 8.3 gram/dL 11.5-15.5 L HEMATOCRIT (test code = HCT) 27.0 % 36.0-46.0 L MEAN CELL VOLUME (test code = MCV) 96.1 fL 80-98 N MEAN CELL HGB (test code = MCH) 29.5 picogram 27.0-33.0 N MEAN CELL HGB CONCETRATION (test code = MCHC) 30.7 gram/dL 33.0-36. 0 L RED CELL DISTRIBUTION WIDTH (test code = RDW) 16.5 % 11.6-16. 2 H RED CELL DISTRIBUTION WIDTH SD (test code = RDW-SD) 57.5 fL 37 .0-51.0 H PLATELET COUNT (test code = PLT) 50 K/mm3 150-450 L RESULT VERIFIED BY REPEAT ANALYSIS MEAN PLATELET VOLUME (test code = MPV) 12.2 fL 6.7-11.0 H IMMATURE GRANULOCYTE % (test code = IG%) 0.6 % 0.0-5.0 N NUCLEATED RBC % (test code = NRBC%) 0.0 % 0-0 N NEUTROPHIL # (test code = NT#) 3.95 K/mm3 1.8-7.7 N IMMATURE GRANULOCYTE # (test code = IG#) 0.03 x10 3/uL 0-0.03 N LYMPHOCYTE # (test code = LY#) 0.25 K/mm3 1.0-5.0 L MONOCYTE # (test code = MO#) 0.39 K/mm3 0-0.8 N EOSINOPHIL # (test code = EO#) 0.02 K/mm3 0.0-0.5 N BASOPHIL # (test code = BA#) 0.01 K/mm3 0.0-0.2 N NUCLEATED RBC # (test code = NRBC#) 0.00 K/mm3 0.0-0.1 N MANUAL DIFF REQUIRED (test code = MDIFF) YES STAIN ACCEPTABILITY (test code = STN ACCEPTABLE) TOTAL CELLS COUNTED (test code = TCC) #CELLS SEGMENTED NEUTROPHILS (test code = SEG) % 39-69 LYMPHOCYTE (test code = LYMPH) % 25-55 MONOCYTE (test code = MON) % 0-10 EOSINOPHIL (test code = EOS) % 0.0-5.0 CABOT RINGS (test code = CAB) MORPHOLOGY COMMENT (test code = MOC) PLATELET ESTIMATE (test code = PLTEST) PLATELET MORPHOLOGY (test code = PLTMORPH) [id number] 09:04:00* Test Item Value Reference Range Interpretation Comments GLUBED (test code = GLUBED) 190 mg/dL 74-106 H Performed by certified collar turner operator at [facility] [id number] 08:42:00* Test Item Value Reference Range Interpretation Comments AMMONIA (test code = AMM) 56 umol/L 11-32 H [id number] 20:47:00* Test Item Value Reference Range Interpretation Comments GLUBED (test code = GLUBED) 157 mg/dL 74-106 H Performed by certified collar turner operator at [facility] [id number] 18:21:00* Test Item Value Reference Range Interpretation Comments AMMONIA (test code = AMM) 69 umol/L 11-32 H [id number] 18:05:00* Test Item Value Reference Range Interpretation Comments GLUBED (test code = GLUBED) 203 mg/dL 74-106 H Performed by certified collar turner operator at [facility] [id number] 12:27:00* Test Item Value Reference Range Interpretation Comments GLUBED (test code = GLUBED) 263 mg/dL 74-106 H Performed by certified collar turner operator at [facility] CBC W/MANUAL [id number] 10:42:00* Test Item Value Reference Range Interpretation Comments WHITE BLOOD CELL (test code = WBC) 6.7 K/mm3 4.5-12.5 N RED BLOOD CELL (test code = RBC) 2.47 mill/mm3 3.7-5.2 L HEMOGLOBIN (test code = HGB) 7.3 gram/dL 11.5-15.5 L HEMATOCRIT (test code = HCT) 23.6 % 36.0-46.0 L MEAN CELL VOLUME (test code = MCV) 95.5 fL 80-98 N MEAN CELL HGB (test code = MCH) 29.6 picogram 27.0-33.0 N MEAN CELL HGB CONCETRATION (test code = MCHC) 30.9 gram/dL 33.0-36. 0 L RED CELL DISTRIBUTION WIDTH (test code = RDW) 17.2 % 11.6-16. 2 H RED CELL DISTRIBUTION WIDTH SD (test code = RDW-SD) 59.8 fL 37 .0-51.0 H PLATELET COUNT (test code = PLT) 71 K/mm3 150-450 L MEAN PLATELET VOLUME (test code = MPV) 11.7 fL 6.7-11.0 H IMMATURE GRANULOCYTE % (test code = IG%) 0.4 % 0.0-5.0 N NUCLEATED RBC % (test code = NRBC%) 0.0 % 0-0 N NEUTROPHIL # (test code = NT#) 5.60 K/mm3 1.8-7.7 N IMMATURE GRANULOCYTE # (test code = IG#) 0.03 x10 3/uL 0-0.03 N LYMPHOCYTE # (test code = LY#) 0.44 K/mm3 1.0-5.0 L MONOCYTE # (test code = MO#) 0.53 K/mm3 0-0.8 N EOSINOPHIL # (test code = EO#) 0.08 K/mm3 0.0-0.5 N BASOPHIL # (test code = BA#) 0.02 K/mm3 0.0-0.2 N NUCLEATED RBC # (test code = NRBC#) 0.00 K/mm3 0.0-0.1 N MANUAL DIFF REQUIRED (test code = MDIFF) YES STAIN ACCEPTABILITY (test code = STN ACCEPTABLE) STAIN ACCEPTABLE TOTAL CELLS COUNTED (test code = TCC) 115 #CELLS SEGMENTED NEUTROPHILS (test code = SEG) 86.1 % 39-69 H BAND NEUTROPHIL (test code = BAND) 4.3 % 0-10 N LYMPHOCYTE (test code = LYMPH) 6.1 % 25-55 L REACTIVE LYMPH (test code = RELYMPH) 0 % MONOCYTE (test code = MON) 1.7 % 0-10 N EOSINOPHIL (test code = EOS) 0 % 0.0-5.0 N BASOPHIL (test code = BASO) 0 % 0-1.0 N METAMYELOCYTE (test code = META) 0.9 % 0-0 H MYELOCYTE (test code = MYELO) 0.9 % 0.0-0.0 H PROMYELOCYTE (test code = PROM) 0 % 0-0 N POLYCHROMASIA (test code = POLC) 1+ HYPOCHROMIA (test code = HYPO) 1+ BASOPHILIC STIPPLING (test code = STP) 2+ ANISOCYTOSIS (test code = ANISO) 1+ PLATELET ESTIMATE (test code = PLTEST) DECREASED PLATELET MORPHOLOGY (test code = PLTMORPH) NORMAL IMMATURE FORMS (test code = IMMAT) 0 % 0-0 N CBC W/MANUAL [id number] 08:59:00* Test Item Value Reference Range Interpretation Comments WHITE BLOOD CELL (test code = WBC) 6.7 K/mm3 4.5-12.5 N RED BLOOD CELL (test code = RBC) 2.47 mill/mm3 3.7-5.2 L HEMOGLOBIN (test code = HGB) 7.3 gram/dL 11.5-15.5 L HEMATOCRIT (test code = HCT) 23.6 % 36.0-46.0 L MEAN CELL VOLUME (test code = MCV) 95.5 fL 80-98 N MEAN CELL HGB (test code = MCH) 29.6 picogram 27.0-33.0 N MEAN CELL HGB CONCETRATION (test code = MCHC) 30.9 gram/dL 33.0-36. 0 L RED CELL DISTRIBUTION WIDTH (test code = RDW) 17.2 % 11.6-16. 2 H RED CELL DISTRIBUTION WIDTH SD (test code = RDW-SD) 59.8 fL 37 .0-51.0 H PLATELET COUNT (test code = PLT) 71 K/mm3 150-450 L MEAN PLATELET VOLUME (test code = MPV) 11.7 fL 6.7-11.0 H IMMATURE GRANULOCYTE % (test code = IG%) 0.4 % 0.0-5.0 N NUCLEATED RBC % (test code = NRBC%) 0.0 % 0-0 N NEUTROPHIL # (test code = NT#) 5.60 K/mm3 1.8-7.7 N IMMATURE GRANULOCYTE # (test code = IG#) 0.03 x10 3/uL 0-0.03 N LYMPHOCYTE # (test code = LY#) 0.44 K/mm3 1.0-5.0 L MONOCYTE # (test code = MO#) 0.53 K/mm3 0-0.8 N EOSINOPHIL # (test code = EO#) 0.08 K/mm3 0.0-0.5 N BASOPHIL # (test code = BA#) 0.02 K/mm3 0.0-0.2 N NUCLEATED RBC # (test code = NRBC#) 0.00 K/mm3 0.0-0.1 N MANUAL DIFF REQUIRED (test code = MDIFF) YES STAIN ACCEPTABILITY (test code = STN ACCEPTABLE) TOTAL CELLS COUNTED (test code = TCC) #CELLS SEGMENTED NEUTROPHILS (test code = SEG) % 39-69 LYMPHOCYTE (test code = LYMPH) % 25-55 MONOCYTE (test code = MON) % 0-10 EOSINOPHIL (test code = EOS) % 0.0-5.0 CABOT RINGS (test code = CAB) MORPHOLOGY COMMENT (test code = MOC) PLATELET ESTIMATE (test code = PLTEST) PLATELET MORPHOLOGY (test code = PLTMORPH) CBC W/MANUAL [id number] 08:59:00* Test Item Value Reference Range Interpretation Comments WHITE BLOOD CELL (test code = WBC) 6.7 K/mm3 4.5-12.5 N RED BLOOD CELL (test code = RBC) 2.47 mill/mm3 3.7-5.2 L HEMOGLOBIN (test code = HGB) 7.3 gram/dL 11.5-15.5 L HEMATOCRIT (test code = HCT) 23.6 % 36.0-46.0 L MEAN CELL VOLUME (test code = MCV) 95.5 fL 80-98 N MEAN CELL HGB (test code = MCH) 29.6 picogram 27.0-33.0 N MEAN CELL HGB CONCETRATION (test code = MCHC) 30.9 gram/dL 33.0-36. 0 L RED CELL DISTRIBUTION WIDTH (test code = RDW) 17.2 % 11.6-16. 2 H RED CELL DISTRIBUTION WIDTH SD (test code = RDW-SD) 59.8 fL 37 .0-51.0 H PLATELET COUNT (test code = PLT) 71 K/mm3 150-450 L MEAN PLATELET VOLUME (test code = MPV) 11.7 fL 6.7-11.0 H IMMATURE GRANULOCYTE % (test code = IG%) 0.4 % 0.0-5.0 N NUCLEATED RBC % (test code = NRBC%) 0.0 % 0-0 N NEUTROPHIL # (test code = NT#) 5.60 K/mm3 1.8-7.7 N IMMATURE GRANULOCYTE # (test code = IG#) 0.03 x10 3/uL 0-0.03 N LYMPHOCYTE # (test code = LY#) 0.44 K/mm3 1.0-5.0 L MONOCYTE # (test code = MO#) 0.53 K/mm3 0-0.8 N EOSINOPHIL # (test code = EO#) 0.08 K/mm3 0.0-0.5 N BASOPHIL # (test code = BA#) 0.02 K/mm3 0.0-0.2 N NUCLEATED RBC # (test code = NRBC#) 0.00 K/mm3 0.0-0.1 N MANUAL DIFF REQUIRED (test code = MDIFF) YES STAIN ACCEPTABILITY (test code = STN ACCEPTABLE) TOTAL CELLS COUNTED (test code = TCC) #CELLS SEGMENTED NEUTROPHILS (test code = SEG) % 39-69 LYMPHOCYTE (test code = LYMPH) % 25-55 MONOCYTE (test code = MON) % 0-10 EOSINOPHIL (test code = EOS) % 0.0-5.0 CABOT RINGS (test code = CAB) MORPHOLOGY COMMENT (test code = MOC) PLATELET ESTIMATE (test code = PLTEST) PLATELET MORPHOLOGY (test code = PLTMORPH) CBC W/MANUAL [id number] 08:59:00* Test Item Value Reference Range Interpretation Comments WHITE BLOOD CELL (test code = WBC) 6.7 K/mm3 4.5-12.5 N RED BLOOD CELL (test code = RBC) 2.47 mill/mm3 3.7-5.2 L HEMOGLOBIN (test code = HGB) 7.3 gram/dL 11.5-15.5 L HEMATOCRIT (test code = HCT) 23.6 % 36.0-46.0 L MEAN CELL VOLUME (test code = MCV) 95.5 fL 80-98 N MEAN CELL HGB (test code = MCH) 29.6 picogram 27.0-33.0 N MEAN CELL HGB CONCETRATION (test code = MCHC) 30.9 gram/dL 33.0-36. 0 L RED CELL DISTRIBUTION WIDTH (test code = RDW) 17.2 % 11.6-16. 2 H RED CELL DISTRIBUTION WIDTH SD (test code = RDW-SD) 59.8 fL 37 .0-51.0 H PLATELET COUNT (test code = PLT) 71 K/mm3 150-450 L MEAN PLATELET VOLUME (test code = MPV) 11.7 fL 6.7-11.0 H IMMATURE GRANULOCYTE % (test code = IG%) 0.4 % 0.0-5.0 N NUCLEATED RBC % (test code = NRBC%) 0.0 % 0-0 N NEUTROPHIL # (test code = NT#) 5.60 K/mm3 1.8-7.7 N IMMATURE GRANULOCYTE # (test code = IG#) 0.03 x10 3/uL 0-0.03 N LYMPHOCYTE # (test code = LY#) 0.44 K/mm3 1.0-5.0 L MONOCYTE # (test code = MO#) 0.53 K/mm3 0-0.8 N EOSINOPHIL # (test code = EO#) 0.08 K/mm3 0.0-0.5 N BASOPHIL # (test code = BA#) 0.02 K/mm3 0.0-0.2 N NUCLEATED RBC # (test code = NRBC#) 0.00 K/mm3 0.0-0.1 N MANUAL DIFF REQUIRED (test code = MDIFF) YES STAIN ACCEPTABILITY (test code = STN ACCEPTABLE) TOTAL CELLS COUNTED (test code = TCC) #CELLS SEGMENTED NEUTROPHILS (test code = SEG) % 39-69 LYMPHOCYTE (test code = LYMPH) % 25-55 MONOCYTE (test code = MON) % 0-10 EOSINOPHIL (test code = EOS) % 0.0-5.0 MORPHOLOGY COMMENT (test code = MOC) PLATELET ESTIMATE (test code = PLTEST) PLATELET MORPHOLOGY (test code = PLTMORPH) CBC W/MANUAL [id number] 08:59:00* Test Item Value Reference Range Interpretation Comments WHITE BLOOD CELL (test code = WBC) 6.7 K/mm3 4.5-12.5 N RED BLOOD CELL (test code = RBC) 2.47 mill/mm3 3.7-5.2 L HEMOGLOBIN (test code = HGB) 7.3 gram/dL 11.5-15.5 L HEMATOCRIT (test code = HCT) 23.6 % 36.0-46.0 L MEAN CELL VOLUME (test code = MCV) 95.5 fL 80-98 N MEAN CELL HGB (test code = MCH) 29.6 picogram 27.0-33.0 N MEAN CELL HGB CONCETRATION (test code = MCHC) 30.9 gram/dL 33.0-36. 0 L RED CELL DISTRIBUTION WIDTH (test code = RDW) 17.2 % 11.6-16. 2 H RED CELL DISTRIBUTION WIDTH SD (test code = RDW-SD) 59.8 fL 37 .0-51.0 H PLATELET COUNT (test code = PLT) 71 K/mm3 150-450 L MEAN PLATELET VOLUME (test code = MPV) 11.7 fL 6.7-11.0 H IMMATURE GRANULOCYTE % (test code = IG%) 0.4 % 0.0-5.0 N NUCLEATED RBC % (test code = NRBC%) 0.0 % 0-0 N NEUTROPHIL # (test code = NT#) 5.60 K/mm3 1.8-7.7 N IMMATURE GRANULOCYTE # (test code = IG#) 0.03 x10 3/uL 0-0.03 N LYMPHOCYTE # (test code = LY#) 0.44 K/mm3 1.0-5.0 L MONOCYTE # (test code = MO#) 0.53 K/mm3 0-0.8 N EOSINOPHIL # (test code = EO#) 0.08 K/mm3 0.0-0.5 N BASOPHIL # (test code = BA#) 0.02 K/mm3 0.0-0.2 N NUCLEATED RBC # (test code = NRBC#) 0.00 K/mm3 0.0-0.1 N MANUAL DIFF REQUIRED (test code = MDIFF) YES STAIN ACCEPTABILITY (test code = STN ACCEPTABLE) TOTAL CELLS COUNTED (test code = TCC) #CELLS SEGMENTED NEUTROPHILS (test code = SEG) % 39-69 LYMPHOCYTE (test code = LYMPH) % 25-55 MONOCYTE (test code = MON) % 0-10 MORPHOLOGY COMMENT (test code = MOC) PLATELET ESTIMATE (test code = PLTEST) PLATELET MORPHOLOGY (test code = PLTMORPH) CBC W/MANUAL [id number] 08:59:00* Test Item Value Reference Range Interpretation Comments WHITE BLOOD CELL (test code = WBC) 6.7 K/mm3 4.5-12.5 N RED BLOOD CELL (test code = RBC) 2.47 mill/mm3 3.7-5.2 L HEMOGLOBIN (test code = HGB) 7.3 gram/dL 11.5-15.5 L HEMATOCRIT (test code = HCT) 23.6 % 36.0-46.0 L MEAN CELL VOLUME (test code = MCV) 95.5 fL 80-98 N MEAN CELL HGB (test code = MCH) 29.6 picogram 27.0-33.0 N MEAN CELL HGB CONCETRATION (test code = MCHC) 30.9 gram/dL 33.0-36. 0 L RED CELL DISTRIBUTION WIDTH (test code = RDW) 17.2 % 11.6-16. 2 H RED CELL DISTRIBUTION WIDTH SD (test code = RDW-SD) 59.8 fL 37 .0-51.0 H PLATELET COUNT (test code = PLT) 71 K/mm3 150-450 L MEAN PLATELET VOLUME (test code = MPV) 11.7 fL 6.7-11.0 H IMMATURE GRANULOCYTE % (test code = IG%) 0.4 % 0.0-5.0 N NUCLEATED RBC % (test code = NRBC%) 0.0 % 0-0 N NEUTROPHIL # (test code = NT#) 5.60 K/mm3 1.8-7.7 N IMMATURE GRANULOCYTE # (test code = IG#) 0.03 x10 3/uL 0-0.03 N LYMPHOCYTE # (test code = LY#) 0.44 K/mm3 1.0-5.0 L MONOCYTE # (test code = MO#) 0.53 K/mm3 0-0.8 N EOSINOPHIL # (test code = EO#) 0.08 K/mm3 0.0-0.5 N BASOPHIL # (test code = BA#) 0.02 K/mm3 0.0-0.2 N NUCLEATED RBC # (test code = NRBC#) 0.00 K/mm3 0.0-0.1 N MANUAL DIFF REQUIRED (test code = MDIFF) YES STAIN ACCEPTABILITY (test code = STN ACCEPTABLE) TOTAL CELLS COUNTED (test code = TCC) #CELLS SEGMENTED NEUTROPHILS (test code = SEG) % 39-69 LYMPHOCYTE (test code = LYMPH) % 25-55 MONOCYTE (test code = MON) % 0-10 EOSINOPHIL (test code = EOS) % 0.0-5.0 CABOT RINGS (test code = CAB) MORPHOLOGY COMMENT (test code = MOC) PLATELET ESTIMATE (test code = PLTEST) PLATELET MORPHOLOGY (test code = PLTMORPH) [id number] 08:49:00* Test Item Value Reference Range Interpretation Comments GLUBED (test code = GLUBED) 251 mg/dL 74-106 H Performed by certified collar turner operator at [facility] [id number] 21:05:00* Test Item Value Reference Range Interpretation Comments GLUBED (test code = GLUBED) 165 mg/dL 74-106 H Performed by certified collar turner operator at [facility] [id number] 17:15:00* Test Item Value Reference Range Interpretation Comments GLUBED (test code = GLUBED) 261 mg/dL 74-106 H Performed by certified collar turner operator at [facility] [id number] 16:57:00* Test Item Value Reference Range Interpretation Comments GLUBED (test code = GLUBED) 258 mg/dL 74-106 H Performed by certified collar turner operator at [facility] SERUM [id number] 15:15:00* Test Item Value Reference Range Interpretation Comments SERUM IRON (test code = IRON) 82 ug/dL 50-175 N VITAMIN [id number] 15:15:00* Test Item Value Reference Range Interpretation Comments VITAMIN B12 (test code = VITB12) 878 pg/mL 193-986 N FOLIC [id number] 15:15:00* Test Item Value Reference Range Interpretation Comments FOLIC ACID (test code = FOL) 7.2 ng/mL 3.10-17.50 N [id number] 15:15:00* Test Item Value Reference Range Interpretation Comments FERRITIN (test code = NGUYỄN) 10 ng/mL 8-388 N VITAMIN D 1,49-[id number] 15:15:00* Test Item Value Reference Range Interpretation Comments VITAMIN D 1,25-DIHYDROXY (test code = NOHE654) pgram/mL BASIC METABOLIC [id number] 14:53:00* Test Item Value Reference Range Interpretation Comments SODIUM (test code = NA) 137 mmol/L 136-145 N POTASSIUM (test code = K) 3.9 mmol/L 3.5-5.1 N CHLORIDE (test code = CL) 100.0 mmol/L 98-107 N CARBON DIOXIDE (test code = CO2) 30.0 mmol/L 21-32 N ANION GAP (test code = GAP) 10.9 10-20 N GLUCOSE (test code = GLU) 148 mg/dL 74-106 H BLOOD UREA NITROGEN (test code = BUN) 24 mg/dL 7-18 H GLOMERULAR FILTRATION RATE (test code = GFR) 45 mL/min >=60 Estimated GFR by using Modified MDRD formula.Chronic kidney disease is defined as either kidney damageor GFR <60 mL/min/1.73 m2 for >3 months. CREATININE (test code = CREAT) 1.20 mg/dL 0.55-1.02 H Note change in reference range due to change in reagent. BUN/CREATININE RATIO (test code = BUN/CREA) 20.0 10-20 N CALCIUM (test code = CA) 7.8 mg/dL 8.5-10.1 L [id number] 14:53:00* Test Item Value Reference Range Interpretation Comments AMMONIA (test code = AMM) 125 umol/L 11-32 H CBC W/AUTO [id number] 14:30:00* Test Item Value Reference Range Interpretation Comments WHITE BLOOD CELL (test code = WBC) 4.0 K/mm3 4.5-12.5 L RED BLOOD CELL (test code = RBC) 2.28 mill/mm3 3.7-5.2 L HEMOGLOBIN (test code = HGB) 6.9 gram/dL 11.5-15.5 L HEMATOCRIT (test code = HCT) 22.5 % 36.0-46.0 L MEAN CELL VOLUME (test code = MCV) 98.7 fL 80-98 H MEAN CELL HGB (test code = MCH) 30.3 picogram 27.0-33.0 N MEAN CELL HGB CONCETRATION (test code = MCHC) 30.7 gram/dL 33.0-36. 0 L RED CELL DISTRIBUTION WIDTH (test code = RDW) 15.9 % 11.6-16. 2 N RED CELL DISTRIBUTION WIDTH SD (test code = RDW-SD) 57.3 fL 37 .0-51.0 H PLATELET COUNT (test code = PLT) 80 K/mm3 150-450 L MEAN PLATELET VOLUME (test code = MPV) 11.6 fL 6.7-11.0 H NEUTROPHIL % (test code = NT%) 62.3 % 39.0-69.0 N IMMATURE GRANULOCYTE % (test code = IG%) 0.5 % 0.0-5.0 N LYMPHOCYTE % (test code = LY%) 19.6 % 25.0-55.0 L MONOCYTE % (test code = MO%) 11.1 % 0.0-10.0 H EOSINOPHIL % (test code = EO%) 6.0 % 0.0-5.0 H BASOPHIL % (test code = BA%) 0.5 % 0.0-1.0 N NUCLEATED RBC % (test code = NRBC%) 0.0 % 0-0 N NEUTROPHIL # (test code = NT#) 2.47 K/mm3 1.8-7.7 N IMMATURE GRANULOCYTE # (test code = IG#) 0.02 x10 3/uL 0-0.03 N LYMPHOCYTE # (test code = LY#) 0.78 K/mm3 1.0-5.0 L MONOCYTE # (test code = MO#) 0.44 K/mm3 0-0.8 N EOSINOPHIL # (test code = EO#) 0.24 K/mm3 0.0-0.5 N BASOPHIL # (test code = BA#) 0.02 K/mm3 0.0-0.2 N NUCLEATED RBC # (test code = NRBC#) 0.00 K/mm3 0.0-0.1 N MANUAL DIFF REQUIRED (test code = MDIFF) NO [id number] 11:17:00* Test Item Value Reference Range Interpretation Comments GLUBED (test code = GLUBED) 73 mg/dL 74-106 L Performed by certified collar turner operator at [facility] [id number] 08:40:00* Test Item Value Reference Range Interpretation Comments GLUBED (test code = GLUBED) 103 mg/dL 74-106 N Performed by certified collar turner operator at [facility] [id number] 05:51:00* Test Item Value Reference Range Interpretation Comments GLUBED (test code = GLUBED) 73 mg/dL 74-106 L Performed by certified collar turner operator at [facility] [id number] 04:16:00* Test Item Value Reference Range Interpretation Comments GLUBED (test code = GLUBED) 26 mg/dL 74-106 LL Test performed as P.O.C. by nursing staff.[facility] Not[facility]~Notified Nurse~ [id number] 23:32:00* Test Item Value Reference Range Interpretation Comments GLUBED (test code = GLUBED) 69 mg/dL 74-106 L Performed by certified collar turner operator at [facility] [id number] 23:19:00* Test Item Value Reference Range Interpretation Comments AMMONIA (test code = AMM) 61 umol/L 11-32 H URINALYSIS [id number] 23:16:00* Test Item Value Reference Range Interpretation Comments UA COLOR (test code = COLU) Light-Yellow YELLOW UA APPEARANCE (test code = APPU) Cloudy CLEAR A UA GLUCOSE DIPSTICK (test code = DGLUU) NEGATIVE mg/dL NEGATIVE UA BILIRUBIN DIPSTICK (test code = BILU) NEGATIVE mg/dL NEGATIVE UA KETONE DIPSTICK (test code = KETU) NEGATIVE mg/dL NEGATIVE UA SPECIFIC GRAVITY (test code = SGU) 1.003 1.001-1.035 UA BLOOD DIPSTICK (test code = VIJAY) 0.5 mg/dL (2+) mg/dL NEGATIVE A UA PH DIPSTICK (test code = RACHNA) 5.5 5.0-8.0 UA PROTEIN DIPSTICK (test code = PROU) NEGATIVE mg/dL NEGATIVE UA UROBILINIOGEN DIPSTICK (test code = URO) Normal mg/dL NEGATIVE UA NITRITE DIPSTICK (test code = ROCKY) POSITIVE NEGATIVE A UA LEUKOCYTE ESTERASE W REFLEX (test code = LEUUR) 250 [place]eland/uL [place]eland/u L NEGATIVE A UA WBC (test code = WBCU) 21-50 per HPF 0-5 A UA RBC (test code = RBCU) 21-50 #/HPF 0-5 UA EPITHELIAL CELLS (test code = EPIU) FEW per HPF FEW UA BACTERIA (test code = BACU) MANY #/HPF NONE A UA MUCUS (test code = MUCU) FEW #/LPF FEW Urine Source? Clean Catch- XR CHEST 1 [id number] 23:05:00 FAX: Kadie Garcia MD [phone] [place]: St: REG Name: Sandra ANTONIOFANGALEX [facility] : [birth year] Age/S: 67/F [address] [facility] Unit #: [id number] Loc: [place] [address] Phys: Kadie Garcia MD Acct: [id number] Dis Date: Status: REG ER PHONE #: [phone] Exam Date: 06/30/2018 2301 FAX #: [phone] Reason: Shortness of Breath EXAMS: CPT CODE: [id number] XR CHEST 1 V 19066 EXAM: - XR CHEST 1 V LOCATION: C3 HISTORY: Shortness of Breath COMPARIS ON: None available time of interpretation. FINDINGS: Single view of the chest. Patient is rotated. No indwelling lines or tubes. No pneumothorax. The lungs are clear. No pleural effusions are present. The mediastinal contours are unremarka ble. No acute osseous findings are present. IMPRESSION: No acute cardiopulmonary abnormality. Electronical ly Signed by Spencer Billingsley M.D. on 06/30/2018 at 230 5 Reported and signed by: Spencer Billingsley M.D. CC: Kadie Garcia MD Tech nologist: Vickie Corrales; Wendy Tyson(More) Trnscrd Date/Ti me/By: 06/30/2018 (0765) : By: [email or web address] Orig Print D/T: S: 06/30/2018 (7103) PAGE 1 Signed Report - XR CHEST 1 [id number] 23:05:00 FAX: Kadie Garcia MD [phone] [place]: St: DIS Name: ALEX LANDRUM [facility] : [birth year] Age/S: 67/F [address] [facility] Unit #: [id number] Loc: [address] [place] [address] Phys: Kadie Garcia MD Acct: [id number] Dis Date: [id number] Status: DIS IN PHONE #: [phone] Exam Date: 06/30/2018 230 FAX #: [phone] Reason: Shortness of Breath EXAMS: CPT CODE: [id number] XR CHEST 1 V 78512 EXAM: - XR CHEST 1 V LOCATION: C3 HISTORY: Shortness of Breath COMPARIS ON: None available time of interpretation. FINDINGS: Single view of the chest. Patient is rotated. No indwelling lines or tubes. No pneumothorax. The lungs are clear. No pleural effusions are present. The mediastinal contours are unremarka ble. No acute osseous findings are present. IMPRESSION: No acute cardiopulmonary abnormality. Electronical ly Signed by Spencer Billingsley M.D. on 06/30/2018 at 230 5 Reported and signed by: Spencer Billingsley M.D. CC: Kadie Garcia MD [facility] nologist: Vickie Corrales; Wendy Tyson(R) Trnscrd /Ti me/By: 06/30/2018 (8911) : By: [email or web address] Orig Print D/T: S: 06/30/2018 (9850) PAGE 1 Signed Report - CT HEAD/BRAIN W/O [id number] 22:46:00 Name: ALEX STANTON [facility] : 1950 Age/S: 67 / F [address] Unit #: [id number] Loc: [place] [address] Phys: Mari Garcia MD Acct: [id number] Di s Date: Status: REG ER PHONE #: Exam Date: 06/30/20182238 FAX #: [phone] Reason: CONFUSION EXAMS: CPT CODE: [id number] CT HEAD/BRAIN W/O CONT 88263 REASON FOR EXAM: CONFUSION EXAM ORDER DATE: 06/30/2018 10:28 PM Orderin chinedu Sandoval: Kadie Garcia MD PROCEDURE: - CT HEAD/BRAIN W/O CONT COMPARISON: 04/18/2018 FINDINGS: CT images of the bra in were obtained without IV contrast. Dose modulation, iterative reconstr uction, and/or weight based adjustment of the MA/KV was utilized to reduce the radiation dose to as low as reasonably achievable. The brain parenchyma is within normal limits. The monahan-white matter delineati on is unremarkable. The ventricles, cisterns, and sulci are unremarkable. There is no evidence of hemorrhage, mass, mass effect. There is no eviden ce of acute or old infarct. The calvarium is intact. Minimal opacificati on of the right mastoid air cells IMPRESSION: Unremarkable brain . at 2 246 Reported and signed by: Drew Cole M.D. CC: Kadie Garcia MD Technologist:Malick Arias RT(R)(CT); MAXIMUS CTDI: DLP: Trnscb Date/Time: 06/30/2018 ( 224) [email or web address] Orig Print D/T: S: 06/30/2018 (6949) CTDI: DLP: PAGE 1 Signed Report B-TYPE NATRIURETIC [id number] 21:37:00* Test Item Value Reference Range Interpretation Comments B-TYPE NATRIURETIC PEPTIDE (test code = BNP) 36.23 pgram/mL 0-100 N BASIC METABOLIC [id number] 21:32:00* Test Item Value Reference Range Interpretation Comments SODIUM (test code = NA) 134 mmol/L 136-145 L POTASSIUM (test code = K) 4.4 mmol/L 3.5-5.1 N CHLORIDE (test code = CL) 98.0 mmol/L 98-107 N CARBON DIOXIDE (test code = CO2) 30.0 mmol/L 21-32 N ANION GAP (test code = GAP) 10.4 10-20 N GLUCOSE (test code = GLU) 37 mg/dL 74-106 LL Re sults called to [id number] by V.LAB. 06/30/18 2132Critical results verified and read back by Nurse? Y BLOOD UREA NITROGEN (test code = BUN) 23 mg/dL 7-18 H GLOMERULAR FILTRATION RATE (test code = GFR) 41 mL/min >=60 Estimated GFR by using Modified MDRD formula.Chronic kidney disease is defined as either kidney damageor GFR <60 mL/min/1.73 m2 for >3 months. CREATININE (test code = CREAT) 1.30 mg/dL 0.55-1.02 H Note change in reference range due to change in reagent. BUN/CREATININE RATIO (test code = BUN/CREA) 17.7 10-20 N CALCIUM (test code = CA) 8.0 mg/dL 8.5-10.1 L HEPATIC FUNCTION [id number] 21:32:00* Test Item Value Reference Range Interpretation Comments TOTAL PROTEIN (test code = PROT) 6.8 gram/dL 6.4-8.2 N ALBUMIN (test code = ALB) 2.7 g/dL 3.4-5.0 L GLOBULIN (test code = GLOB) 4.1 gram/dL 2.7-4.2 N ALBUMIN/GLOBULIN RATIO (test code = A/G) 0.7 0.75-1.50 L BILIRUBIN TOTAL (test code = BILT) 1.00 mg/dL 0.0-1.0 N BILIRUBIN DIRECT (test code = BILD) 0.47 mg/dL 0.0-0.20 H SGOT/AST (test code = AST) 44 IUnit/L 15-37 H SGPT/ALT (test code = ALT) 21 IUnit/L 12-78 N ALKALINE PHOSPHATASE TOTAL (test code = ALKP) 124 IUnit/L 45-117 H Note change in reference range due to change in reagent. [id number] 21:32:00* Test Item Value Reference Range Interpretation Comments LIPASE (test code = LIP) 73 U/L 73.0-393.0 N [id number] 21:32:00* Test Item Value Reference Range Interpretation Comments MAGNESIUM (test code = MAG) 2.2 mg/dL 1.8-2.4 N [id number] 21:32:00* Test Item Value Reference Range Interpretation Comments TROPONIN-I (test code = TROPI) <0.015 ng/mL 0-0.045 N BASIC METABOLIC [id number] 21:21:00* Test Item Value Reference Range Interpretation Comments SODIUM (test code = NA) 134 mmol/L 136-145 L POTASSIUM (test code = K) 4.4 mmol/L 3.5-5.1 N CHLORIDE (test code = CL) 98.0 mmol/L 98-107 N CARBON DIOXIDE (test code = CO2) 30.0 mmol/L 21-32 N ANION GAP (test code = GAP) 10.4 10-20 N GLUCOSE (test code = GLU) mg/dL 74-106 BLOOD UREA NITROGEN (test code = BUN) 23 mg/dL 7-18 H GLOMERULAR FILTRATION RATE (test code = GFR) 41 mL/min >=60 Estimated GFR by using Modified MDRD formula.Chronic kidney disease is defined as either kidney damageor GFR <60 mL/min/1.73 m2 for >3 months. CREATININE (test code = CREAT) 1.30 mg/dL 0.55-1.02 H Note change in reference range due to change in reagent. BUN/CREATININE RATIO (test code = BUN/CREA) 17.7 10-20 N CALCIUM (test code = CA) 8.0 mg/dL 8.5-10.1 L HEPATIC FUNCTION [id number] 21:21:00* Test Item Value Reference Range Interpretation Comments TOTAL PROTEIN (test code = PROT) 6.8 gram/dL 6.4-8.2 N ALBUMIN (test code = ALB) 2.7 g/dL 3.4-5.0 L GLOBULIN (test code = GLOB) 4.1 gram/dL 2.7-4.2 N ALBUMIN/GLOBULIN RATIO (test code = A/G) 0.7 0.75-1.50 L BILIRUBIN TOTAL (test code = BILT) 1.00 mg/dL 0.0-1.0 N BILIRUBIN DIRECT (test code = BILD) 0.47 mg/dL 0.0-0.20 H SGOT/AST (test code = AST) 44 IUnit/L 15-37 H SGPT/ALT (test code = ALT) 21 IUnit/L 12-78 N ALKALINE PHOSPHATASE TOTAL (test code = ALKP) 124 IUnit/L 45-117 H Note change in reference range due to change in reagent. [id number] 21:21:00* Test Item Value Reference Range Interpretation Comments LIPASE (test code = LIP) 73 U/L 73.0-393.0 N [id number] 21:21:00* Test Item Value Reference Range Interpretation Comments MAGNESIUM (test code = MAG) 2.2 mg/dL 1.8-2.4 N [id number] 21:21:00* Test Item Value Reference Range Interpretation Comments TROPONIN-I (test code = TROPI) <0.015 ng/mL 0-0.045 N CBC W/O [id number] 21:09:00* Test Item Value Reference Range Interpretation Comments WHITE BLOOD CELL (test code = WBC) 3.6 K/mm3 4.5-12.5 L RED BLOOD CELL (test code = RBC) 2.13 mill/mm3 3.7-5.2 L HEMOGLOBIN (test code = HGB) 6.6 gram/dL 11.5-15.5 L HEMATOCRIT (test code = HCT) 21.4 % 36.0-46.0 Results called to [id number] by BETO.[email or web address] 06/30/182108Critical results verified and read back by Nurse? Y MEAN CELL VOLUME (test code = MCV) 100.5 fL 80-98 H MEAN CELL HGB (test code = MCH) 31.0 picogram 27.0-33.0 N MEAN CELL HGB CONCETRATION (test code = MCHC) 30.8 gram/dL 33.0-36. 0 L RED CELL DISTRIBUTION WIDTH (test code = RDW) 14.1 % 11.6-16. 2 N PLATELET COUNT (test code = PLT) 75 K/mm3 150-450 L MEAN PLATELET VOLUME (test code = MPV) 11.8 fL 6.7-11.0 H PROTHROMBIN [id number] 21:08:00* Test Item Value Reference Range Interpretation Comments PROTHROMBIN TIME PATIENT (test code = PTP) 12.7 seconds 9.0-14.0 N INTERNATIONAL NORMAL RATIO (test code = INR) 1.1 0.8-1.2 N The therapeutic range for oral anticoagulant therapy [...] (2.5-3.5) IS PATIENT ON ANTICOAGULANTS? NTHROMBOPLASTIN TIME [id number] 21:08:00* Test Item Value Reference Range Interpretation Comments THROMBOPLASTIN TIME PARTIAL (test code = PTT) 28.5 seconds 25.0-36. 5 N IS PATIENT ON ANTICOAGULANTS? NBASIC METABOLIC [id number] 21:07:00* Test Item Value Reference Range Interpretation Comments SODIUM (test code = NA) 134 mmol/L 136-145 L POTASSIUM (test code = K) 4.4 mmol/L 3.5-5.1 N CHLORIDE (test code = CL) 98.0 mmol/L 98-107 N CARBON DIOXIDE (test code = CO2) mmol/L 21-32 ANION GAP (test code = GAP) 10-20 GLUCOSE (test code = GLU) mg/dL 74-106 BLOOD UREA NITROGEN (test code = BUN) mg/dL 7-18 GLOMERULAR FILTRATION RATE (test code = GFR) mL/min >=60 CREATININE (test code = CREAT) mg/dL 0.55-1.02 BUN/CREATININE RATIO (test code = BUN/CREA) 10-20 CALCIUM (test code = CA) mg/dL 8.5-10.1 HEPATIC FUNCTION [id number] 21:07:00* Test Item Value Reference Range Interpretation Comments TOTAL PROTEIN (test code = PROT) gram/dL 6.4-8.2 ALBUMIN (test code = ALB) g/dL 3.4-5.0 GLOBULIN (test code = GLOB) gram/dL 2.7-4.2 ALBUMIN/GLOBULIN RATIO (test code = A/G) 0.75-1.50 BILIRUBIN TOTAL (test code = BILT) mg/dL 0.0-1.0 BILIRUBIN DIRECT (test code = BILD) mg/dL 0.0-0.20 SGOT/AST (test code = AST) IUnit/L 15-37 SGPT/ALT (test code = ALT) IUnit/L 12-78 ALKALINE PHOSPHATASE TOTAL (test code = ALKP) IUnit/L 45-117 [id number] 21:07:00* Test Item Value Reference Range Interpretation Comments LIPASE (test code = LIP) U/L 73.0-393.0 [id number] 21:07:00* Test Item Value Reference Range Interpretation Comments MAGNESIUM (test code = MAG) mg/dL 1.8-2.4 [id number] 21:07:00* Test Item Value Reference Range Interpretation Comments TROPONIN-I (test code = TROPI) ng/mL 0-0.045 [id number] 16:48:00* Test Item Value Reference Range Interpretation Comments GLUBED (test code = GLUBED) 130 mg/dL 74-106 H Performed by certified collar turner operator at [facility] [id number] 11:41:00* Test Item Value Reference Range Interpretation Comments GLUBED (test code = GLUBED) 134 mg/dL 74-106 H Performed by certified collar turner operator at [facility] [id number] 07:04:00* Test Item Value Reference Range Interpretation Comments GLUBED (test code = GLUBED) 141 mg/dL 74-106 H [facility] certified collar turn[facility]~ [id number] 21:36:00* Test Item Value Reference Range Interpretation Comments GLUBED (test code = GLUBED) 229 mg/dL 74-106 H [facility] certified collar turner [facility]~ [id number] 16:49:00* Test Item Value Reference Range Interpretation Comments GLUBED (test code = GLUBED) 142 mg/dL 74-106 H Performed by certified collar turner operator at [facility] [id number] 12:26:00* Test Item Value Reference Range Interpretation Comments GLUBED (test code = GLUBED) 130 mg/dL 74-106 H Performed by certified collar turner operator at [facility] [id number] 07:00:00* Test Item Value Reference Range Interpretation Comments GLUBED (test code = GLUBED) 130 mg/dL 74-106 H [facility] certified collar turner [facility]~ COMPREHENSIVE METABOLIC [id number] 05:10:00* Test Item Value Reference Range Interpretation Comments SODIUM (test code = NA) 138 mmol/L 136-145 N POTASSIUM (test code = K) 4.0 mmol/L 3.5-5.1 N CHLORIDE (test code = CL) 104.0 mmol/L 98-107 N CARBON DIOXIDE (test code = CO2) 25.0 mmol/L 21-32 N ANION GAP (test code = GAP) 13.0 10-20 N GLUCOSE (test code = GLU) 119 mg/dL 74-106 H BLOOD UREA NITROGEN (test code = BUN) 26 mg/dL 7-18 H GLOMERULAR FILTRATION RATE (test code = GFR) 45 mL/min >=60 Estimated GFR by using Modified MDRD formula.Chronic kidney disease is defined as either kidney damageor GFR <60 mL/min/1.73 m2 for >3 months. CREATININE (test code = CREAT) 1.20 mg/dL 0.55-1.02 H Note change in reference range due to change in reagent. BUN/CREATININE RATIO (test code = BUN/CREA) 20.8 10-20 H TOTAL PROTEIN (test code = PROT) 6.8 gram/dL 6.4-8.2 N ALBUMIN (test code = ALB) 2.0 g/dL 3.4-5.0 L GLOBULIN (test code = GLOB) 4.8 gram/dL 2.7-4.2 H ALBUMIN/GLOBULIN RATIO (test code = A/G) 0.4 0.75-1.50 L CALCIUM (test code = CA) 7.6 mg/dL 8.5-10.1 L BILIRUBIN TOTAL (test code = BILT) 1.10 mg/dL 0.0-1.0 H SGOT/AST (test code = AST) 59 IUnit/L 15-37 H SGPT/ALT (test code = ALT) 30 IUnit/L 12-78 N ALKALINE PHOSPHATASE TOTAL (test code = ALKP) 162 IUnit/L 45-117 H Note change in reference range due to change in reagent. CBC W/AUTO [id number] 04:54:00* Test Item Value Reference Range Interpretation Comments WHITE BLOOD CELL (test code = WBC) 4.3 K/mm3 4.5-12.5 L RED BLOOD CELL (test code = RBC) 2.87 mill/mm3 3.7-5.2 L HEMOGLOBIN (test code = HGB) 8.8 gram/dL 11.5-15.5 L HEMATOCRIT (test code = HCT) 27.7 % 36.0-46.0 L MEAN CELL VOLUME (test code = MCV) 96.5 fL 80-98 N MEAN CELL HGB (test code = MCH) 30.7 picogram 27.0-33.0 N MEAN CELL HGB CONCETRATION (test code = MCHC) 31.8 gram/dL 33.0-36. 0 L RED CELL DISTRIBUTION WIDTH (test code = RDW) 19.2 % 11.6-16. 2 H RED CELL DISTRIBUTION WIDTH SD (test code = RDW-SD) 65.6 fL 37 .0-51.0 H PLATELET COUNT (test code = PLT) 75 K/mm3 150-450 L MEAN PLATELET VOLUME (test code = MPV) 10.9 fL 6.7-11.0 N NEUTROPHIL % (test code = NT%) 65.4 % 39.0-69.0 N IMMATURE GRANULOCYTE % (test code = IG%) 0.2 % 0.0-5.0 N LYMPHOCYTE % (test code = LY%) 18.6 % 25.0-55.0 L MONOCYTE % (test code = MO%) 12.0 % 0.0-10.0 H EOSINOPHIL % (test code = EO%) 3.1 % 0.0-5.0 N BASOPHIL % (test code = BA%) 0.7 % 0.0-1.0 N NUCLEATED RBC % (test code = NRBC%) 0.0 % 0-0 N NEUTROPHIL # (test code = NT#) 2.78 K/mm3 1.8-7.7 N IMMATURE GRANULOCYTE # (test code = IG#) 0.01 x10 3/uL 0-0.03 N LYMPHOCYTE # (test code = LY#) 0.79 K/mm3 1.0-5.0 L MONOCYTE # (test code = MO#) 0.51 K/mm3 0-0.8 N EOSINOPHIL # (test code = EO#) 0.13 K/mm3 0.0-0.5 N BASOPHIL # (test code = BA#) 0.03 K/mm3 0.0-0.2 N NUCLEATED RBC # (test code = NRBC#) 0.00 K/mm3 0.0-0.1 N MANUAL DIFF REQUIRED (test code = MDIFF) NO, ONLY SCAN NEEDED DIFFERENTIAL [id number] 04:54:00* Test Item Value Reference Range Interpretation Comments STAIN ACCEPTABILITY (test code = STN ACCEPTABLE) STAIN ACCEPTABLE POLYCHROMASIA (test code = POLC) 1+ ANISOCYTOSIS (test code = ANISO) 1+ PLATELET ESTIMATE (test code = PLTEST) DECREASED PLATELET MORPHOLOGY (test code = PLTMORPH) NORMAL [id number] 04:54:00* Test Item Value Reference Range Interpretation Comments AMMONIA (test code = AMM) 125 umol/L 11-32 H COMPREHENSIVE METABOLIC [id number] 04:50:00* Test Item Value Reference Range Interpretation Comments SODIUM (test code = NA) 138 mmol/L 136-145 N POTASSIUM (test code = K) 4.0 mmol/L 3.5-5.1 N CHLORIDE (test code = CL) 104.0 mmol/L 98-107 N CARBON DIOXIDE (test code = CO2) mmol/L 21-32 ANION GAP (test code = GAP) 10-20 GLUCOSE (test code = GLU) mg/dL 74-106 BLOOD UREA NITROGEN (test code = BUN) mg/dL 7-18 GLOMERULAR FILTRATION RATE (test code = GFR) mL/min >=60 CREATININE (test code = CREAT) mg/dL 0.55-1.02 BUN/CREATININE RATIO (test code = BUN/CREA) 10-20 TOTAL PROTEIN (test code = PROT) gram/dL 6.4-8.2 ALBUMIN (test code = ALB) g/dL 3.4-5.0 GLOBULIN (test code = GLOB) gram/dL 2.7-4.2 ALBUMIN/GLOBULIN RATIO (test code = A/G) 0.75-1.50 CALCIUM (test code = CA) mg/dL 8.5-10.1 BILIRUBIN TOTAL (test code = BILT) mg/dL 0.0-1.0 SGOT/AST (test code = AST) IUnit/L 15-37 SGPT/ALT (test code = ALT) IUnit/L 12-78 ALKALINE PHOSPHATASE TOTAL (test code = ALKP) IUnit/L 45-117 CBC W/AUTO [id number] 04:38:00* Test Item Value Reference Range Interpretation Comments WHITE BLOOD CELL (test code = WBC) 4.3 K/mm3 4.5-12.5 L RED BLOOD CELL (test code = RBC) 2.87 mill/mm3 3.7-5.2 L HEMOGLOBIN (test code = HGB) 8.8 gram/dL 11.5-15.5 L HEMATOCRIT (test code = HCT) 27.7 % 36.0-46.0 L MEAN CELL VOLUME (test code = MCV) 96.5 fL 80-98 N MEAN CELL HGB (test code = MCH) 30.7 picogram 27.0-33.0 N MEAN CELL HGB CONCETRATION (test code = MCHC) 31.8 gram/dL 33.0-36. 0 L RED CELL DISTRIBUTION WIDTH (test code = RDW) 19.2 % 11.6-16. 2 H RED CELL DISTRIBUTION WIDTH SD (test code = RDW-SD) 65.6 fL 37 .0-51.0 H PLATELET COUNT (test code = PLT) 75 K/mm3 150-450 L MEAN PLATELET VOLUME (test code = MPV) 10.9 fL 6.7-11.0 N NEUTROPHIL % (test code = NT%) 65.4 % 39.0-69.0 N IMMATURE GRANULOCYTE % (test code = IG%) 0.2 % 0.0-5.0 N LYMPHOCYTE % (test code = LY%) 18.6 % 25.0-55.0 L MONOCYTE % (test code = MO%) 12.0 % 0.0-10.0 H EOSINOPHIL % (test code = EO%) 3.1 % 0.0-5.0 N BASOPHIL % (test code = BA%) 0.7 % 0.0-1.0 N NUCLEATED RBC % (test code = NRBC%) 0.0 % 0-0 N NEUTROPHIL # (test code = NT#) 2.78 K/mm3 1.8-7.7 N IMMATURE GRANULOCYTE # (test code = IG#) 0.01 x10 3/uL 0-0.03 N LYMPHOCYTE # (test code = LY#) 0.79 K/mm3 1.0-5.0 L MONOCYTE # (test code = MO#) 0.51 K/mm3 0-0.8 N EOSINOPHIL # (test code = EO#) 0.13 K/mm3 0.0-0.5 N BASOPHIL # (test code = BA#) 0.03 K/mm3 0.0-0.2 N NUCLEATED RBC # (test code = NRBC#) 0.00 K/mm3 0.0-0.1 N MANUAL DIFF REQUIRED (test code = MDIFF) NO, ONLY SCAN NEEDED DIFFERENTIAL [id number] 04:38:00* Test Item Value Reference Range Interpretation Comments STAIN ACCEPTABILITY (test code = STN ACCEPTABLE) CABOT RINGS (test code = CAB) MORPHOLOGY COMMENT (test code = MOC) PLATELET ESTIMATE (test code = PLTEST) PLATELET MORPHOLOGY (test code = PLTMORPH) CBC W/AUTO [id number] 04:38:00* Test Item Value Reference Range Interpretation Comments WHITE BLOOD CELL (test code = WBC) 4.3 K/mm3 4.5-12.5 L RED BLOOD CELL (test code = RBC) 2.87 mill/mm3 3.7-5.2 L HEMOGLOBIN (test code = HGB) 8.8 gram/dL 11.5-15.5 L HEMATOCRIT (test code = HCT) 27.7 % 36.0-46.0 L MEAN CELL VOLUME (test code = MCV) 96.5 fL 80-98 N MEAN CELL HGB (test code = MCH) 30.7 picogram 27.0-33.0 N MEAN CELL HGB CONCETRATION (test code = MCHC) 31.8 gram/dL 33.0-36. 0 L RED CELL DISTRIBUTION WIDTH (test code = RDW) 19.2 % 11.6-16. 2 H RED CELL DISTRIBUTION WIDTH SD (test code = RDW-SD) 65.6 fL 37 .0-51.0 H PLATELET COUNT (test code = PLT) 75 K/mm3 150-450 L MEAN PLATELET VOLUME (test code = MPV) 10.9 fL 6.7-11.0 N NEUTROPHIL % (test code = NT%) 65.4 % 39.0-69.0 N IMMATURE GRANULOCYTE % (test code = IG%) 0.2 % 0.0-5.0 N LYMPHOCYTE % (test code = LY%) 18.6 % 25.0-55.0 L MONOCYTE % (test code = MO%) 12.0 % 0.0-10.0 H EOSINOPHIL % (test code = EO%) 3.1 % 0.0-5.0 N BASOPHIL % (test code = BA%) 0.7 % 0.0-1.0 N NUCLEATED RBC % (test code = NRBC%) 0.0 % 0-0 N NEUTROPHIL # (test code = NT#) 2.78 K/mm3 1.8-7.7 N IMMATURE GRANULOCYTE # (test code = IG#) 0.01 x10 3/uL 0-0.03 N LYMPHOCYTE # (test code = LY#) 0.79 K/mm3 1.0-5.0 L MONOCYTE # (test code = MO#) 0.51 K/mm3 0-0.8 N EOSINOPHIL # (test code = EO#) 0.13 K/mm3 0.0-0.5 N BASOPHIL # (test code = BA#) 0.03 K/mm3 0.0-0.2 N NUCLEATED RBC # (test code = NRBC#) 0.00 K/mm3 0.0-0.1 N MANUAL DIFF REQUIRED (test code = MDIFF) NO, ONLY SCAN NEEDED DIFFERENTIAL [id number] 04:38:00* Test Item Value Reference Range Interpretation Comments STAIN ACCEPTABILITY (test code = STN ACCEPTABLE) MORPHOLOGY COMMENT (test code = MOC) PLATELET ESTIMATE (test code = PLTEST) PLATELET MORPHOLOGY (test code = PLTMORPH) CBC W/AUTO [id number] 04:38:00* Test Item Value Reference Range Interpretation Comments WHITE BLOOD CELL (test code = WBC) 4.3 K/mm3 4.5-12.5 L RED BLOOD CELL (test code = RBC) 2.87 mill/mm3 3.7-5.2 L HEMOGLOBIN (test code = HGB) 8.8 gram/dL 11.5-15.5 L HEMATOCRIT (test code = HCT) 27.7 % 36.0-46.0 L MEAN CELL VOLUME (test code = MCV) 96.5 fL 80-98 N MEAN CELL HGB (test code = MCH) 30.7 picogram 27.0-33.0 N MEAN CELL HGB CONCETRATION (test code = MCHC) 31.8 gram/dL 33.0-36. 0 L RED CELL DISTRIBUTION WIDTH (test code = RDW) 19.2 % 11.6-16. 2 H RED CELL DISTRIBUTION WIDTH SD (test code = RDW-SD) 65.6 fL 37 .0-51.0 H PLATELET COUNT (test code = PLT) 75 K/mm3 150-450 L MEAN PLATELET VOLUME (test code = MPV) 10.9 fL 6.7-11.0 N NEUTROPHIL % (test code = NT%) 65.4 % 39.0-69.0 N IMMATURE GRANULOCYTE % (test code = IG%) 0.2 % 0.0-5.0 N LYMPHOCYTE % (test code = LY%) 18.6 % 25.0-55.0 L MONOCYTE % (test code = MO%) 12.0 % 0.0-10.0 H EOSINOPHIL % (test code = EO%) 3.1 % 0.0-5.0 N BASOPHIL % (test code = BA%) 0.7 % 0.0-1.0 N NUCLEATED RBC % (test code = NRBC%) 0.0 % 0-0 N NEUTROPHIL # (test code = NT#) 2.78 K/mm3 1.8-7.7 N IMMATURE GRANULOCYTE # (test code = IG#) 0.01 x10 3/uL 0-0.03 N LYMPHOCYTE # (test code = LY#) 0.79 K/mm3 1.0-5.0 L MONOCYTE # (test code = MO#) 0.51 K/mm3 0-0.8 N EOSINOPHIL # (test code = EO#) 0.13 K/mm3 0.0-0.5 N BASOPHIL # (test code = BA#) 0.03 K/mm3 0.0-0.2 N NUCLEATED RBC # (test code = NRBC#) 0.00 K/mm3 0.0-0.1 N MANUAL DIFF REQUIRED (test code = MDIFF) NO, ONLY SCAN NEEDED DIFFERENTIAL [id number] 04:38:00* Test Item Value Reference Range Interpretation Comments STAIN ACCEPTABILITY (test code = STN ACCEPTABLE) MORPHOLOGY COMMENT (test code = MOC) PLATELET ESTIMATE (test code = PLTEST) PLATELET MORPHOLOGY (test code = PLTMORPH) CBC W/AUTO [id number] 04:38:00* Test Item Value Reference Range Interpretation Comments WHITE BLOOD CELL (test code = WBC) 4.3 K/mm3 4.5-12.5 L RED BLOOD CELL (test code = RBC) 2.87 mill/mm3 3.7-5.2 L HEMOGLOBIN (test code = HGB) 8.8 gram/dL 11.5-15.5 L HEMATOCRIT (test code = HCT) 27.7 % 36.0-46.0 L MEAN CELL VOLUME (test code = MCV) 96.5 fL 80-98 N MEAN CELL HGB (test code = MCH) 30.7 picogram 27.0-33.0 N MEAN CELL HGB CONCETRATION (test code = MCHC) 31.8 gram/dL 33.0-36. 0 L RED CELL DISTRIBUTION WIDTH (test code = RDW) 19.2 % 11.6-16. 2 H RED CELL DISTRIBUTION WIDTH SD (test code = RDW-SD) 65.6 fL 37 .0-51.0 H PLATELET COUNT (test code = PLT) 75 K/mm3 150-450 L MEAN PLATELET VOLUME (test code = MPV) 10.9 fL 6.7-11.0 N NEUTROPHIL % (test code = NT%) 65.4 % 39.0-69.0 N IMMATURE GRANULOCYTE % (test code = IG%) 0.2 % 0.0-5.0 N LYMPHOCYTE % (test code = LY%) 18.6 % 25.0-55.0 L MONOCYTE % (test code = MO%) 12.0 % 0.0-10.0 H EOSINOPHIL % (test code = EO%) 3.1 % 0.0-5.0 N BASOPHIL % (test code = BA%) 0.7 % 0.0-1.0 N NUCLEATED RBC % (test code = NRBC%) 0.0 % 0-0 N NEUTROPHIL # (test code = NT#) 2.78 K/mm3 1.8-7.7 N IMMATURE GRANULOCYTE # (test code = IG#) 0.01 x10 3/uL 0-0.03 N LYMPHOCYTE # (test code = LY#) 0.79 K/mm3 1.0-5.0 L MONOCYTE # (test code = MO#) 0.51 K/mm3 0-0.8 N EOSINOPHIL # (test code = EO#) 0.13 K/mm3 0.0-0.5 N BASOPHIL # (test code = BA#) 0.03 K/mm3 0.0-0.2 N NUCLEATED RBC # (test code = NRBC#) 0.00 K/mm3 0.0-0.1 N MANUAL DIFF REQUIRED (test code = MDIFF) NO, ONLY SCAN NEEDED DIFFERENTIAL [id number] 04:38:00* Test Item Value Reference Range Interpretation Comments STAIN ACCEPTABILITY (test code = STN ACCEPTABLE) CABOT RINGS (test code = CAB) MORPHOLOGY COMMENT (test code = MOC) PLATELET ESTIMATE (test code = PLTEST) PLATELET MORPHOLOGY (test code = PLTMORPH) [id number] 21:59:00* Test Item Value Reference Range Interpretation Comments GLUBED (test code = GLUBED) 146 mg/dL 74-106 H [facility] [id number] 16:11:00* Test Item Value Reference Range Interpretation Comments GLUBED (test code = GLUBED) 125 mg/dL 74-106 H Performed by certified collar turner operator at [facility] [id number] 06:36:00* Test Item Value Reference Range Interpretation Comments GLUBED (test code = GLUBED) 112 mg/dL 74-106 H [facility] BASIC METABOLIC [id number] 06:05:00* Test Item Value Reference Range Interpretation Comments SODIUM (test code = NA) 138 mmol/L 136-145 N POTASSIUM (test code = K) 3.8 mmol/L 3.5-5.1 N CHLORIDE (test code = CL) 104.0 mmol/L 98-107 N CARBON DIOXIDE (test code = CO2) 25.0 mmol/L 21-32 N ANION GAP (test code = GAP) 12.8 10-20 N GLUCOSE (test code = GLU) 96 mg/dL 74-106 N BLOOD UREA NITROGEN (test code = BUN) 30 mg/dL 7-18 H GLOMERULAR FILTRATION RATE (test code = GFR) 38 mL/min >=60 Estimated GFR by using Modified MDRD formula.Chronic kidney disease is defined as either kidney damageor GFR <60 mL/min/1.73 m2 for >3 months. CREATININE (test code = CREAT) 1.40 mg/dL 0.55-1.02 H Note change in reference range due to change in reagent. BUN/CREATININE RATIO (test code = BUN/CREA) 20.8 10-20 H CALCIUM (test code = CA) 7.8 mg/dL 8.5-10.1 L BASIC METABOLIC [id number] 05:46:00* Test Item Value Reference Range Interpretation Comments SODIUM (test code = NA) 138 mmol/L 136-145 N POTASSIUM (test code = K) 3.8 mmol/L 3.5-5.1 N CHLORIDE (test code = CL) 104.0 mmol/L 98-107 N CARBON DIOXIDE (test code = CO2) mmol/L 21-32 ANION GAP (test code = GAP) 10-20 GLUCOSE (test code = GLU) mg/dL 74-106 BLOOD UREA NITROGEN (test code = BUN) mg/dL 7-18 GLOMERULAR FILTRATION RATE (test code = GFR) mL/min >=60 CREATININE (test code = CREAT) mg/dL 0.55-1.02 BUN/CREATININE RATIO (test code = BUN/CREA) 10-20 CALCIUM (test code = CA) mg/dL 8.5-10.1 [id number] 04:40:00* Test Item Value Reference Range Interpretation Comments AMMONIA (test code = AMM) 80 umol/L 11-32 H [id number] 21:50:00* Test Item Value Reference Range Interpretation Comments GLUBED (test code = GLUBED) 160 mg/dL 74-106 H Performed by certified collar turner operator at [facility] [id number] 16:26:00* Test Item Value Reference Range Interpretation Comments GLUBED (test code = GLUBED) 148 mg/dL 74-106 H Performed by certified collar turner operator at [facility] [id number] 12:22:00* Test Item Value Reference Range Interpretation Comments GLUBED (test code = GLUBED) 137 mg/dL 74-106 H Performed by certified collar turner operator at [facility] [id number] 12:21:00* Test Item Value Reference Range Interpretation Comments GLUBED (test code = GLUBED) 117 mg/dL 74-106 H Performed by certified collar turner operator at [facility] BASIC METABOLIC [id number] 05:22:00* Test Item Value Reference Range Interpretation Comments SODIUM (test code = NA) 140 mmol/L 136-145 N POTASSIUM (test code = K) 3.7 mmol/L 3.5-5.1 N CHLORIDE (test code = CL) 105.0 mmol/L 98-107 N CARBON DIOXIDE (test code = CO2) 26.0 mmol/L 21-32 N ANION GAP (test code = GAP) 12.7 10-20 N GLUCOSE (test code = GLU) 102 mg/dL 74-106 N BLOOD UREA NITROGEN (test code = BUN) 28 mg/dL 7-18 H GLOMERULAR FILTRATION RATE (test code = GFR) 41 mL/min >=60 Estimated GFR by using Modified MDRD formula.Chronic kidney disease is defined as either kidney damageor GFR <60 mL/min/1.73 m2 for >3 months. CREATININE (test code = CREAT) 1.30 mg/dL 0.55-1.02 H Note change in reference range due to change in reagent. BUN/CREATININE RATIO (test code = BUN/CREA) 21.7 10-20 H CALCIUM (test code = CA) 8.0 mg/dL 8.5-10.1 L [id number] 05:12:00* Test Item Value Reference Range Interpretation Comments AMMONIA (test code = AMM) 62 umol/L 11-32 H BASIC METABOLIC [id number] 05:11:00* Test Item Value Reference Range Interpretation Comments SODIUM (test code = NA) 140 mmol/L 136-145 N POTASSIUM (test code = K) 3.7 mmol/L 3.5-5.1 N CHLORIDE (test code = CL) 105.0 mmol/L 98-107 N CARBON DIOXIDE (test code = CO2) mmol/L 21-32 ANION GAP (test code = GAP) 10-20 GLUCOSE (test code = GLU) mg/dL 74-106 BLOOD UREA NITROGEN (test code = BUN) mg/dL 7-18 GLOMERULAR FILTRATION RATE (test code = GFR) mL/min >=60 CREATININE (test code = CREAT) mg/dL 0.55-1.02 BUN/CREATININE RATIO (test code = BUN/CREA) 10-20 CALCIUM (test code = CA) mg/dL 8.5-10.1 [id number] 21:49:00* Test Item Value Reference Range Interpretation Comments GLUBED (test code = GLUBED) 92 mg/dL 74-106 N Performed by certified collar turner operator at [facility] [id number] 15:23:00* Test Item Value Reference Range Interpretation Comments GLUBED (test code = GLUBED) 132 mg/dL 74-106 H Performed by certified collar turner operator at [facility] [id number] 11:18:00* Test Item Value Reference Range Interpretation Comments GLUBED (test code = GLUBED) 187 mg/dL 74-106 H Performed by certified collar turner operator at [facility] - US ABDOMEN [id number] 07:37:00 Name: ALEX STANTON [facility] : 1950 Age/S: 67 / F [address] [facility] Unit #: [id number] Loc: [place] [address] Phys: Nicole Aguiar Acct: [id number] Dis Date: Status: ADM IN PHONE #: [phone] Exam Date: 04/20/2018 001 FAX #: [phone] Reason: us abd screen for ascites EXAMS: CPT CODE: [id number] US ABDOMEN [facility] [id number] EXAM: Ultrasound abdomen, limited; INFORMATION: HISTORY of [...] and signed by: Gonsalo Mayorga M.D. CC: John Lopez; Nicole Aguiar Technologist: SOREN WONG RDMS [facility] Date/Time: 04/20/2018 (0737) [facility] Print D/T: S: 04/20/2018 (0740) Probe: PAGE 1 Signed Report CBC W/AUTO [id number] 06:56:00* Test Item Value Reference Range Interpretation Comments WHITE BLOOD CELL (test code = WBC) 4.1 K/mm3 4.5-12.5 L RED BLOOD CELL (test code = RBC) 2.95 mill/mm3 3.7-5.2 L HEMOGLOBIN (test code = HGB) 9.0 gram/dL 11.5-15.5 L HEMATOCRIT (test code = HCT) 28.6 % 36.0-46.0 L MEAN CELL VOLUME (test code = MCV) 96.9 fL 80-98 N MEAN CELL HGB (test code = MCH) 30.5 picogram 27.0-33.0 N MEAN CELL HGB CONCETRATION (test code = MCHC) 31.5 gram/dL 33.0-36. 0 L RED CELL DISTRIBUTION WIDTH (test code = RDW) 19.7 % 11.6-16. 2 H RED CELL DISTRIBUTION WIDTH SD (test code = RDW-SD) 69.7 fL 37 .0-51.0 H PLATELET COUNT (test code = PLT) 82 K/mm3 150-450 L MEAN PLATELET VOLUME (test code = MPV) 11.5 fL 6.7-11.0 H NEUTROPHIL % (test code = NT%) 60.2 % 39.0-69.0 N IMMATURE GRANULOCYTE % (test code = IG%) 0.2 % 0.0-5.0 N LYMPHOCYTE % (test code = LY%) 23.8 % 25.0-55.0 L MONOCYTE % (test code = MO%) 12.9 % 0.0-10.0 H EOSINOPHIL % (test code = EO%) 2.2 % 0.0-5.0 N BASOPHIL % (test code = BA%) 0.7 % 0.0-1.0 N NUCLEATED RBC % (test code = NRBC%) 0.0 % 0-0 N NEUTROPHIL # (test code = NT#) 2.48 K/mm3 1.8-7.7 N IMMATURE GRANULOCYTE # (test code = IG#) 0.01 x10 3/uL 0-0.03 N LYMPHOCYTE # (test code = LY#) 0.98 K/mm3 1.0-5.0 L MONOCYTE # (test code = MO#) 0.53 K/mm3 0-0.8 N EOSINOPHIL # (test code = EO#) 0.09 K/mm3 0.0-0.5 N BASOPHIL # (test code = BA#) 0.03 K/mm3 0.0-0.2 N NUCLEATED RBC # (test code = NRBC#) 0.00 K/mm3 0.0-0.1 N MANUAL DIFF REQUIRED (test code = MDIFF) NO, ONLY SCAN NEEDED DIFFERENTIAL [id number] 06:56:00* Test Item Value Reference Range Interpretation Comments STAIN ACCEPTABILITY (test code = STN ACCEPTABLE) STAIN ACCEPTABLE PLATELET ESTIMATE (test code = PLTEST) DECREASED PLATELET MORPHOLOGY (test code = PLTMORPH) NORMAL BASIC METABOLIC [id number] 06:02:00* Test Item Value Reference Range Interpretation Comments SODIUM (test code = NA) 142 mmol/L 136-145 N POTASSIUM (test code = K) 3.6 mmol/L 3.5-5.1 N CHLORIDE (test code = CL) 106.0 mmol/L 98-107 N CARBON DIOXIDE (test code = CO2) 28.0 mmol/L 21-32 N ANION GAP (test code = GAP) 11.6 10-20 N GLUCOSE (test code = GLU) 137 mg/dL 74-106 H BLOOD UREA NITROGEN (test code = BUN) 28 mg/dL 7-18 H GLOMERULAR FILTRATION RATE (test code = GFR) 38 mL/min >=60 Estimated GFR by using Modified MDRD formula.Chronic kidney disease is defined as either kidney damageor GFR <60 mL/min/1.73 m2 for >3 months. CREATININE (test code = CREAT) 1.40 mg/dL 0.55-1.02 H Note change in reference range due to change in reagent. BUN/CREATININE RATIO (test code = BUN/CREA) 20.1 10-20 H CALCIUM (test code = CA) 7.9 mg/dL 8.5-10.1 L BASIC METABOLIC [id number] 05:58:00* Test Item Value Reference Range Interpretation Comments SODIUM (test code = NA) 142 mmol/L 136-145 N POTASSIUM (test code = K) 3.6 mmol/L 3.5-5.1 N CHLORIDE (test code = CL) 106.0 mmol/L 98-107 N CARBON DIOXIDE (test code = CO2) mmol/L 21-32 ANION GAP (test code = GAP) 10-20 GLUCOSE (test code = GLU) mg/dL 74-106 BLOOD UREA NITROGEN (test code = BUN) mg/dL 7-18 GLOMERULAR FILTRATION RATE (test code = GFR) mL/min >=60 CREATININE (test code = CREAT) mg/dL 0.55-1.02 BUN/CREATININE RATIO (test code = BUN/CREA) 10-20 CALCIUM (test code = CA) mg/dL 8.5-10.1 [id number] 05:45:00* Test Item Value Reference Range Interpretation Comments GLUBED (test code = GLUBED) 114 mg/dL 74-106 H Performed by certified collar turner operator at [facility] CBC W/AUTO [id number] 05:36:00* Test Item Value Reference Range Interpretation Comments WHITE BLOOD CELL (test code = WBC) 4.1 K/mm3 4.5-12.5 L RED BLOOD CELL (test code = RBC) 2.95 mill/mm3 3.7-5.2 L HEMOGLOBIN (test code = HGB) 9.0 gram/dL 11.5-15.5 L HEMATOCRIT (test code = HCT) 28.6 % 36.0-46.0 L MEAN CELL VOLUME (test code = MCV) 96.9 fL 80-98 N MEAN CELL HGB (test code = MCH) 30.5 picogram 27.0-33.0 N MEAN CELL HGB CONCETRATION (test code = MCHC) 31.5 gram/dL 33.0-36. 0 L RED CELL DISTRIBUTION WIDTH (test code = RDW) 19.7 % 11.6-16. 2 H RED CELL DISTRIBUTION WIDTH SD (test code = RDW-SD) 69.7 fL 37 .0-51.0 H PLATELET COUNT (test code = PLT) 82 K/mm3 150-450 L MEAN PLATELET VOLUME (test code = MPV) 11.5 fL 6.7-11.0 H NEUTROPHIL % (test code = NT%) 60.2 % 39.0-69.0 N IMMATURE GRANULOCYTE % (test code = IG%) 0.2 % 0.0-5.0 N LYMPHOCYTE % (test code = LY%) 23.8 % 25.0-55.0 L MONOCYTE % (test code = MO%) 12.9 % 0.0-10.0 H EOSINOPHIL % (test code = EO%) 2.2 % 0.0-5.0 N BASOPHIL % (test code = BA%) 0.7 % 0.0-1.0 N NUCLEATED RBC % (test code = NRBC%) 0.0 % 0-0 N NEUTROPHIL # (test code = NT#) 2.48 K/mm3 1.8-7.7 N IMMATURE GRANULOCYTE # (test code = IG#) 0.01 x10 3/uL 0-0.03 N LYMPHOCYTE # (test code = LY#) 0.98 K/mm3 1.0-5.0 L MONOCYTE # (test code = MO#) 0.53 K/mm3 0-0.8 N EOSINOPHIL # (test code = EO#) 0.09 K/mm3 0.0-0.5 N BASOPHIL # (test code = BA#) 0.03 K/mm3 0.0-0.2 N NUCLEATED RBC # (test code = NRBC#) 0.00 K/mm3 0.0-0.1 N MANUAL DIFF REQUIRED (test code = MDIFF) NO, ONLY SCAN NEEDED DIFFERENTIAL [id number] 05:36:00* Test Item Value Reference Range Interpretation Comments STAIN ACCEPTABILITY (test code = STN ACCEPTABLE) CABOT RINGS (test code = CAB) MORPHOLOGY COMMENT (test code = MOC) PLATELET ESTIMATE (test code = PLTEST) PLATELET MORPHOLOGY (test code = PLTMORPH) CBC W/AUTO [id number] 05:36:00* Test Item Value Reference Range Interpretation Comments WHITE BLOOD CELL (test code = WBC) 4.1 K/mm3 4.5-12.5 L RED BLOOD CELL (test code = RBC) 2.95 mill/mm3 3.7-5.2 L HEMOGLOBIN (test code = HGB) 9.0 gram/dL 11.5-15.5 L HEMATOCRIT (test code = HCT) 28.6 % 36.0-46.0 L MEAN CELL VOLUME (test code = MCV) 96.9 fL 80-98 N MEAN CELL HGB (test code = MCH) 30.5 picogram 27.0-33.0 N MEAN CELL HGB CONCETRATION (test code = MCHC) 31.5 gram/dL 33.0-36. 0 L RED CELL DISTRIBUTION WIDTH (test code = RDW) 19.7 % 11.6-16. 2 H RED CELL DISTRIBUTION WIDTH SD (test code = RDW-SD) 69.7 fL 37 .0-51.0 H PLATELET COUNT (test code = PLT) 82 K/mm3 150-450 L MEAN PLATELET VOLUME (test code = MPV) 11.5 fL 6.7-11.0 H NEUTROPHIL % (test code = NT%) 60.2 % 39.0-69.0 N IMMATURE GRANULOCYTE % (test code = IG%) 0.2 % 0.0-5.0 N LYMPHOCYTE % (test code = LY%) 23.8 % 25.0-55.0 L MONOCYTE % (test code = MO%) 12.9 % 0.0-10.0 H EOSINOPHIL % (test code = EO%) 2.2 % 0.0-5.0 N BASOPHIL % (test code = BA%) 0.7 % 0.0-1.0 N NUCLEATED RBC % (test code = NRBC%) 0.0 % 0-0 N NEUTROPHIL # (test code = NT#) 2.48 K/mm3 1.8-7.7 N IMMATURE GRANULOCYTE # (test code = IG#) 0.01 x10 3/uL 0-0.03 N LYMPHOCYTE # (test code = LY#) 0.98 K/mm3 1.0-5.0 L MONOCYTE # (test code = MO#) 0.53 K/mm3 0-0.8 N EOSINOPHIL # (test code = EO#) 0.09 K/mm3 0.0-0.5 N BASOPHIL # (test code = BA#) 0.03 K/mm3 0.0-0.2 N NUCLEATED RBC # (test code = NRBC#) 0.00 K/mm3 0.0-0.1 N MANUAL DIFF REQUIRED (test code = MDIFF) NO, ONLY SCAN NEEDED DIFFERENTIAL [id number] 05:36:00* Test Item Value Reference Range Interpretation Comments STAIN ACCEPTABILITY (test code = STN ACCEPTABLE) CABOT RINGS (test code = CAB) MORPHOLOGY COMMENT (test code = MOC) PLATELET ESTIMATE (test code = PLTEST) PLATELET MORPHOLOGY (test code = PLTMORPH) CBC W/AUTO [id number] 05:36:00* Test Item Value Reference Range Interpretation Comments WHITE BLOOD CELL (test code = WBC) 4.1 K/mm3 4.5-12.5 L RED BLOOD CELL (test code = RBC) 2.95 mill/mm3 3.7-5.2 L HEMOGLOBIN (test code = HGB) 9.0 gram/dL 11.5-15.5 L HEMATOCRIT (test code = HCT) 28.6 % 36.0-46.0 L MEAN CELL VOLUME (test code = MCV) 96.9 fL 80-98 N MEAN CELL HGB (test code = MCH) 30.5 picogram 27.0-33.0 N MEAN CELL HGB CONCETRATION (test code = MCHC) 31.5 gram/dL 33.0-36. 0 L RED CELL DISTRIBUTION WIDTH (test code = RDW) 19.7 % 11.6-16. 2 H RED CELL DISTRIBUTION WIDTH SD (test code = RDW-SD) 69.7 fL 37 .0-51.0 H PLATELET COUNT (test code = PLT) 82 K/mm3 150-450 L MEAN PLATELET VOLUME (test code = MPV) 11.5 fL 6.7-11.0 H NEUTROPHIL % (test code = NT%) 60.2 % 39.0-69.0 N IMMATURE GRANULOCYTE % (test code = IG%) 0.2 % 0.0-5.0 N LYMPHOCYTE % (test code = LY%) 23.8 % 25.0-55.0 L MONOCYTE % (test code = MO%) 12.9 % 0.0-10.0 H EOSINOPHIL % (test code = EO%) 2.2 % 0.0-5.0 N BASOPHIL % (test code = BA%) 0.7 % 0.0-1.0 N NUCLEATED RBC % (test code = NRBC%) 0.0 % 0-0 N NEUTROPHIL # (test code = NT#) 2.48 K/mm3 1.8-7.7 N IMMATURE GRANULOCYTE # (test code = IG#) 0.01 x10 3/uL 0-0.03 N LYMPHOCYTE # (test code = LY#) 0.98 K/mm3 1.0-5.0 L MONOCYTE # (test code = MO#) 0.53 K/mm3 0-0.8 N EOSINOPHIL # (test code = EO#) 0.09 K/mm3 0.0-0.5 N BASOPHIL # (test code = BA#) 0.03 K/mm3 0.0-0.2 N NUCLEATED RBC # (test code = NRBC#) 0.00 K/mm3 0.0-0.1 N MANUAL DIFF REQUIRED (test code = MDIFF) NO, ONLY SCAN NEEDED DIFFERENTIAL [id number] 05:36:00* Test Item Value Reference Range Interpretation Comments STAIN ACCEPTABILITY (test code = STN ACCEPTABLE) MORPHOLOGY COMMENT (test code = MOC) PLATELET ESTIMATE (test code = PLTEST) PLATELET MORPHOLOGY (test code = PLTMORPH) CBC W/AUTO [id number] 05:36:00* Test Item Value Reference Range Interpretation Comments WHITE BLOOD CELL (test code = WBC) 4.1 K/mm3 4.5-12.5 L RED BLOOD CELL (test code = RBC) 2.95 mill/mm3 3.7-5.2 L HEMOGLOBIN (test code = HGB) 9.0 gram/dL 11.5-15.5 L HEMATOCRIT (test code = HCT) 28.6 % 36.0-46.0 L MEAN CELL VOLUME (test code = MCV) 96.9 fL 80-98 N MEAN CELL HGB (test code = MCH) 30.5 picogram 27.0-33.0 N MEAN CELL HGB CONCETRATION (test code = MCHC) 31.5 gram/dL 33.0-36. 0 L RED CELL DISTRIBUTION WIDTH (test code = RDW) 19.7 % 11.6-16. 2 H RED CELL DISTRIBUTION WIDTH SD (test code = RDW-SD) 69.7 fL 37 .0-51.0 H PLATELET COUNT (test code = PLT) 82 K/mm3 150-450 L MEAN PLATELET VOLUME (test code = MPV) 11.5 fL 6.7-11.0 H NEUTROPHIL % (test code = NT%) 60.2 % 39.0-69.0 N IMMATURE GRANULOCYTE % (test code = IG%) 0.2 % 0.0-5.0 N LYMPHOCYTE % (test code = LY%) 23.8 % 25.0-55.0 L MONOCYTE % (test code = MO%) 12.9 % 0.0-10.0 H EOSINOPHIL % (test code = EO%) 2.2 % 0.0-5.0 N BASOPHIL % (test code = BA%) 0.7 % 0.0-1.0 N NUCLEATED RBC % (test code = NRBC%) 0.0 % 0-0 N NEUTROPHIL # (test code = NT#) 2.48 K/mm3 1.8-7.7 N IMMATURE GRANULOCYTE # (test code = IG#) 0.01 x10 3/uL 0-0.03 N LYMPHOCYTE # (test code = LY#) 0.98 K/mm3 1.0-5.0 L MONOCYTE # (test code = MO#) 0.53 K/mm3 0-0.8 N EOSINOPHIL # (test code = EO#) 0.09 K/mm3 0.0-0.5 N BASOPHIL # (test code = BA#) 0.03 K/mm3 0.0-0.2 N NUCLEATED RBC # (test code = NRBC#) 0.00 K/mm3 0.0-0.1 N MANUAL DIFF REQUIRED (test code = MDIFF) NO, ONLY SCAN NEEDED DIFFERENTIAL [id number] 05:36:00* Test Item Value Reference Range Interpretation Comments STAIN ACCEPTABILITY (test code = STN ACCEPTABLE) CABOT RINGS (test code = CAB) MORPHOLOGY COMMENT (test code = MOC) PLATELET ESTIMATE (test code = PLTEST) PLATELET MORPHOLOGY (test code = PLTMORPH) [id number] 05:16:00* Test Item Value Reference Range Interpretation Comments AMMONIA (test code = AMM) 91 umol/L 11-32 H ACUTE HEPATITIS [id number] 04:11:00* Test Item Value Reference Range Interpretation Comments AB HEPATITIS A IGM (test code = HAVMAB) Negative Negative AG HEPAT B SURF (test code = HBSAG) Negative Negative HEPATITIS B CORE ANTIBODY,IGM (test code = HBCMAB) Negative Neg ative AB HEPATITIS C (test code = HCVAB) <0.1 0.0-0.9 INFCE Result Units: s/co ratio Negative: < 0.8 Indeterminate: 0.8 - 0.9 Positive: > 0.9 The CDC recommends that a positive HCV antibody result be followed up with a HCV Nucleic Acid Amplification test ([id number]).Performed At: [facility] [address] [id number] Lawson Walker MD Ph:[phone] [id number] 20:46:00* Test Item Value Reference Range Interpretation Comments GLUBED (test code = GLUBED) 121 mg/dL 74-106 H Performed by certified collar turner operator at [facility] BASIC METABOLIC [id number] 18:53:00* Test Item Value Reference Range Interpretation Comments SODIUM (test code = NA) 141 mmol/L 136-145 N POTASSIUM (test code = K) 5.2 mmol/L 3.5-5.1 H CHLORIDE (test code = CL) 105.0 mmol/L 98-107 N CARBON DIOXIDE (test code = CO2) 24.0 mmol/L 21-32 N ANION GAP (test code = GAP) 17.2 10-20 N GLUCOSE (test code = GLU) 144 mg/dL 74-106 H BLOOD UREA NITROGEN (test code = BUN) 28 mg/dL 7-18 H GLOMERULAR FILTRATION RATE (test code = GFR) 35 mL/min >=60 Estimated GFR by using Modified MDRD formula.Chronic kidney disease is defined as either kidney damageor GFR <60 mL/min/1.73 m2 for >3 months. CREATININE (test code = CREAT) 1.50 mg/dL 0.55-1.02 H Note change in reference range due to change in reagent. BUN/CREATININE RATIO (test code = BUN/CREA) 18.9 10-20 N CALCIUM (test code = CA) 7.9 mg/dL 8.5-10.1 L [id number] 16:18:00* Test Item Value Reference Range Interpretation Comments GLUBED (test code = GLUBED) 102 mg/dL 74-106 N Performed by certified collar turner operator at [facility] [id number] 12:14:00* Test Item Value Reference Range Interpretation Comments GLUBED (test code = GLUBED) 154 mg/dL 74-106 H Performed by certified collar turner operator at [facility] CBC W/AUTO [id number] 10:20:00* Test Item Value Reference Range Interpretation Comments WHITE BLOOD CELL (test code = WBC) 3.1 K/mm3 4.5-12.5 L RED BLOOD CELL (test code = RBC) 2.93 mill/mm3 3.7-5.2 L HEMOGLOBIN (test code = HGB) 8.7 gram/dL 11.5-15.5 L HEMATOCRIT (test code = HCT) 28.8 % 36.0-46.0 L MEAN CELL VOLUME (test code = MCV) 98.3 fL 80-98 H MEAN CELL HGB (test code = MCH) 29.7 picogram 27.0-33.0 N MEAN CELL HGB CONCETRATION (test code = MCHC) 30.2 gram/dL 33.0-36. 0 L RED CELL DISTRIBUTION WIDTH (test code = RDW) 20.2 % 11.6-16. 2 H RED CELL DISTRIBUTION WIDTH SD (test code = RDW-SD) 72.4 fL 37 .0-51.0 H PLATELET COUNT (test code = PLT) 75 K/mm3 150-450 L MEAN PLATELET VOLUME (test code = MPV) 11.2 fL 6.7-11.0 H NEUTROPHIL % (test code = NT%) 56.4 % 39.0-69.0 N IMMATURE GRANULOCYTE % (test code = IG%) 0.3 % 0.0-5.0 N LYMPHOCYTE % (test code = LY%) 29.0 % 25.0-55.0 N MONOCYTE % (test code = MO%) 12.4 % 0.0-10.0 H EOSINOPHIL % (test code = EO%) 1.3 % 0.0-5.0 N BASOPHIL % (test code = BA%) 0.6 % 0.0-1.0 N NUCLEATED RBC % (test code = NRBC%) 0.0 % 0-0 N NEUTROPHIL # (test code = NT#) 1.77 K/mm3 1.8-7.7 L IMMATURE GRANULOCYTE # (test code = IG#) 0.01 x10 3/uL 0-0.03 N LYMPHOCYTE # (test code = LY#) 0.91 K/mm3 1.0-5.0 L MONOCYTE # (test code = MO#) 0.39 K/mm3 0-0.8 N EOSINOPHIL # (test code = EO#) 0.04 K/mm3 0.0-0.5 N BASOPHIL # (test code = BA#) 0.02 K/mm3 0.0-0.2 N NUCLEATED RBC # (test code = NRBC#) 0.00 K/mm3 0.0-0.1 N MANUAL DIFF REQUIRED (test code = MDIFF) NO, ONLY SCAN NEEDED DIFFERENTIAL [id number] 10:20:00* Test Item Value Reference Range Interpretation Comments STAIN ACCEPTABILITY (test code = STN ACCEPTABLE) STAIN ACCEPTABLE HYPOCHROMIA (test code = HYPO) 1+ ANISOCYTOSIS (test code = ANISO) 1+ MACROCYTOSIS (test code = MACR) 1+ PLATELET ESTIMATE (test code = PLTEST) DECREASED PLATELET MORPHOLOGY (test code = PLTMORPH) NORMAL [id number] 07:50:00* Test Item Value Reference Range Interpretation Comments GLUBED (test code = GLUBED) 104 mg/dL 74-106 N Performed by certified collar turner operator at [facility] CBC W/AUTO [id number] 07:21:00* Test Item Value Reference Range Interpretation Comments WHITE BLOOD CELL (test code = WBC) 3.1 K/mm3 4.5-12.5 L RED BLOOD CELL (test code = RBC) 2.93 mill/mm3 3.7-5.2 L HEMOGLOBIN (test code = HGB) 8.7 gram/dL 11.5-15.5 L HEMATOCRIT (test code = HCT) 28.8 % 36.0-46.0 L MEAN CELL VOLUME (test code = MCV) 98.3 fL 80-98 H MEAN CELL HGB (test code = MCH) 29.7 picogram 27.0-33.0 N MEAN CELL HGB CONCETRATION (test code = MCHC) 30.2 gram/dL 33.0-36. 0 L RED CELL DISTRIBUTION WIDTH (test code = RDW) 20.2 % 11.6-16. 2 H RED CELL DISTRIBUTION WIDTH SD (test code = RDW-SD) 72.4 fL 37 .0-51.0 H PLATELET COUNT (test code = PLT) 75 K/mm3 150-450 L MEAN PLATELET VOLUME (test code = MPV) 11.2 fL 6.7-11.0 H NEUTROPHIL % (test code = NT%) 56.4 % 39.0-69.0 N IMMATURE GRANULOCYTE % (test code = IG%) 0.3 % 0.0-5.0 N LYMPHOCYTE % (test code = LY%) 29.0 % 25.0-55.0 N MONOCYTE % (test code = MO%) 12.4 % 0.0-10.0 H EOSINOPHIL % (test code = EO%) 1.3 % 0.0-5.0 N BASOPHIL % (test code = BA%) 0.6 % 0.0-1.0 N NUCLEATED RBC % (test code = NRBC%) 0.0 % 0-0 N NEUTROPHIL # (test code = NT#) 1.77 K/mm3 1.8-7.7 L IMMATURE GRANULOCYTE # (test code = IG#) 0.01 x10 3/uL 0-0.03 N LYMPHOCYTE # (test code = LY#) 0.91 K/mm3 1.0-5.0 L MONOCYTE # (test code = MO#) 0.39 K/mm3 0-0.8 N EOSINOPHIL # (test code = EO#) 0.04 K/mm3 0.0-0.5 N BASOPHIL # (test code = BA#) 0.02 K/mm3 0.0-0.2 N NUCLEATED RBC # (test code = NRBC#) 0.00 K/mm3 0.0-0.1 N MANUAL DIFF REQUIRED (test code = MDIFF) NO, ONLY SCAN NEEDED DIFFERENTIAL [id number] 07:21:00* Test Item Value Reference Range Interpretation Comments STAIN ACCEPTABILITY (test code = STN ACCEPTABLE) CABOT RINGS (test code = CAB) MORPHOLOGY COMMENT (test code = MOC) PLATELET ESTIMATE (test code = PLTEST) PLATELET MORPHOLOGY (test code = PLTMORPH) CBC W/AUTO [id number] 07:21:00* Test Item Value Reference Range Interpretation Comments WHITE BLOOD CELL (test code = WBC) 3.1 K/mm3 4.5-12.5 L RED BLOOD CELL (test code = RBC) 2.93 mill/mm3 3.7-5.2 L HEMOGLOBIN (test code = HGB) 8.7 gram/dL 11.5-15.5 L HEMATOCRIT (test code = HCT) 28.8 % 36.0-46.0 L MEAN CELL VOLUME (test code = MCV) 98.3 fL 80-98 H MEAN CELL HGB (test code = MCH) 29.7 picogram 27.0-33.0 N MEAN CELL HGB CONCETRATION (test code = MCHC) 30.2 gram/dL 33.0-36. 0 L RED CELL DISTRIBUTION WIDTH (test code = RDW) 20.2 % 11.6-16. 2 H RED CELL DISTRIBUTION WIDTH SD (test code = RDW-SD) 72.4 fL 37 .0-51.0 H PLATELET COUNT (test code = PLT) 75 K/mm3 150-450 L MEAN PLATELET VOLUME (test code = MPV) 11.2 fL 6.7-11.0 H NEUTROPHIL % (test code = NT%) 56.4 % 39.0-69.0 N IMMATURE GRANULOCYTE % (test code = IG%) 0.3 % 0.0-5.0 N LYMPHOCYTE % (test code = LY%) 29.0 % 25.0-55.0 N MONOCYTE % (test code = MO%) 12.4 % 0.0-10.0 H EOSINOPHIL % (test code = EO%) 1.3 % 0.0-5.0 N BASOPHIL % (test code = BA%) 0.6 % 0.0-1.0 N NUCLEATED RBC % (test code = NRBC%) 0.0 % 0-0 N NEUTROPHIL # (test code = NT#) 1.77 K/mm3 1.8-7.7 L IMMATURE GRANULOCYTE # (test code = IG#) 0.01 x10 3/uL 0-0.03 N LYMPHOCYTE # (test code = LY#) 0.91 K/mm3 1.0-5.0 L MONOCYTE # (test code = MO#) 0.39 K/mm3 0-0.8 N EOSINOPHIL # (test code = EO#) 0.04 K/mm3 0.0-0.5 N BASOPHIL # (test code = BA#) 0.02 K/mm3 0.0-0.2 N NUCLEATED RBC # (test code = NRBC#) 0.00 K/mm3 0.0-0.1 N MANUAL DIFF REQUIRED (test code = MDIFF) NO, ONLY SCAN NEEDED DIFFERENTIAL [id number] 07:21:00* Test Item Value Reference Range Interpretation Comments STAIN ACCEPTABILITY (test code = STN ACCEPTABLE) CABOT RINGS (test code = CAB) MORPHOLOGY COMMENT (test code = MOC) PLATELET ESTIMATE (test code = PLTEST) PLATELET MORPHOLOGY (test code = PLTMORPH) CBC W/AUTO [id number] 07:21:00* Test Item Value Reference Range Interpretation Comments WHITE BLOOD CELL (test code = WBC) 3.1 K/mm3 4.5-12.5 L RED BLOOD CELL (test code = RBC) 2.93 mill/mm3 3.7-5.2 L HEMOGLOBIN (test code = HGB) 8.7 gram/dL 11.5-15.5 L HEMATOCRIT (test code = HCT) 28.8 % 36.0-46.0 L MEAN CELL VOLUME (test code = MCV) 98.3 fL 80-98 H MEAN CELL HGB (test code = MCH) 29.7 picogram 27.0-33.0 N MEAN CELL HGB CONCETRATION (test code = MCHC) 30.2 gram/dL 33.0-36. 0 L RED CELL DISTRIBUTION WIDTH (test code = RDW) 20.2 % 11.6-16. 2 H RED CELL DISTRIBUTION WIDTH SD (test code = RDW-SD) 72.4 fL 37 .0-51.0 H PLATELET COUNT (test code = PLT) 75 K/mm3 150-450 L MEAN PLATELET VOLUME (test code = MPV) 11.2 fL 6.7-11.0 H NEUTROPHIL % (test code = NT%) 56.4 % 39.0-69.0 N IMMATURE GRANULOCYTE % (test code = IG%) 0.3 % 0.0-5.0 N LYMPHOCYTE % (test code = LY%) 29.0 % 25.0-55.0 N MONOCYTE % (test code = MO%) 12.4 % 0.0-10.0 H EOSINOPHIL % (test code = EO%) 1.3 % 0.0-5.0 N BASOPHIL % (test code = BA%) 0.6 % 0.0-1.0 N NUCLEATED RBC % (test code = NRBC%) 0.0 % 0-0 N NEUTROPHIL # (test code = NT#) 1.77 K/mm3 1.8-7.7 L IMMATURE GRANULOCYTE # (test code = IG#) 0.01 x10 3/uL 0-0.03 N LYMPHOCYTE # (test code = LY#) 0.91 K/mm3 1.0-5.0 L MONOCYTE # (test code = MO#) 0.39 K/mm3 0-0.8 N EOSINOPHIL # (test code = EO#) 0.04 K/mm3 0.0-0.5 N BASOPHIL # (test code = BA#) 0.02 K/mm3 0.0-0.2 N NUCLEATED RBC # (test code = NRBC#) 0.00 K/mm3 0.0-0.1 N MANUAL DIFF REQUIRED (test code = MDIFF) NO, ONLY SCAN NEEDED DIFFERENTIAL [id number] 07:21:00* Test Item Value Reference Range Interpretation Comments STAIN ACCEPTABILITY (test code = STN ACCEPTABLE) MORPHOLOGY COMMENT (test code = MOC) PLATELET ESTIMATE (test code = PLTEST) PLATELET MORPHOLOGY (test code = PLTMORPH) CBC W/AUTO [id number] 07:21:00* Test Item Value Reference Range Interpretation Comments WHITE BLOOD CELL (test code = WBC) 3.1 K/mm3 4.5-12.5 L RED BLOOD CELL (test code = RBC) 2.93 mill/mm3 3.7-5.2 L HEMOGLOBIN (test code = HGB) 8.7 gram/dL 11.5-15.5 L HEMATOCRIT (test code = HCT) 28.8 % 36.0-46.0 L MEAN CELL VOLUME (test code = MCV) 98.3 fL 80-98 H MEAN CELL HGB (test code = MCH) 29.7 picogram 27.0-33.0 N MEAN CELL HGB CONCETRATION (test code = MCHC) 30.2 gram/dL 33.0-36. 0 L RED CELL DISTRIBUTION WIDTH (test code = RDW) 20.2 % 11.6-16. 2 H RED CELL DISTRIBUTION WIDTH SD (test code = RDW-SD) 72.4 fL 37 .0-51.0 H PLATELET COUNT (test code = PLT) 75 K/mm3 150-450 L MEAN PLATELET VOLUME (test code = MPV) 11.2 fL 6.7-11.0 H NEUTROPHIL % (test code = NT%) 56.4 % 39.0-69.0 N IMMATURE GRANULOCYTE % (test code = IG%) 0.3 % 0.0-5.0 N LYMPHOCYTE % (test code = LY%) 29.0 % 25.0-55.0 N MONOCYTE % (test code = MO%) 12.4 % 0.0-10.0 H EOSINOPHIL % (test code = EO%) 1.3 % 0.0-5.0 N BASOPHIL % (test code = BA%) 0.6 % 0.0-1.0 N NUCLEATED RBC % (test code = NRBC%) 0.0 % 0-0 N NEUTROPHIL # (test code = NT#) 1.77 K/mm3 1.8-7.7 L IMMATURE GRANULOCYTE # (test code = IG#) 0.01 x10 3/uL 0-0.03 N LYMPHOCYTE # (test code = LY#) 0.91 K/mm3 1.0-5.0 L MONOCYTE # (test code = MO#) 0.39 K/mm3 0-0.8 N EOSINOPHIL # (test code = EO#) 0.04 K/mm3 0.0-0.5 N BASOPHIL # (test code = BA#) 0.02 K/mm3 0.0-0.2 N NUCLEATED RBC # (test code = NRBC#) 0.00 K/mm3 0.0-0.1 N MANUAL DIFF REQUIRED (test code = MDIFF) NO, ONLY SCAN NEEDED DIFFERENTIAL [id number] 07:21:00* Test Item Value Reference Range Interpretation Comments STAIN ACCEPTABILITY (test code = STN ACCEPTABLE) CABOT RINGS (test code = CAB) MORPHOLOGY COMMENT (test code = MOC) PLATELET ESTIMATE (test code = PLTEST) PLATELET MORPHOLOGY (test code = PLTMORPH) BASIC METABOLIC [id number] 07:19:00* Test Item Value Reference Range Interpretation Comments SODIUM (test code = NA) 144 mmol/L 136-145 RESU LT VERIFIED BY REPEAT ANALYSIS POTASSIUM (test code = K) 3.9 mmol/L 3.5-5.1 N CHLORIDE (test code = CL) 106.0 mmol/L 98-107 N CARBON DIOXIDE (test code = CO2) 30.0 mmol/L 21-32 N ANION GAP (test code = GAP) 11.9 10-20 N GLUCOSE (test code = GLU) 97 mg/dL 74-106 N BLOOD UREA NITROGEN (test code = BUN) 29 mg/dL 7-18 H GLOMERULAR FILTRATION RATE (test code = GFR) 50 mL/min >=60 Estimated GFR by using Modified MDRD formula.Chronic kidney disease is defined as either kidney damageor GFR <60 mL/min/1.73 m2 for >3 months. CREATININE (test code = CREAT) 1.10 mg/dL 0.55-1.02 H Note change in reference range due to change in reagent. BUN/CREATININE RATIO (test code = BUN/CREA) 25.9 10-20 H CALCIUM (test code = CA) 8.0 mg/dL 8.5-10.1 L [id number] 06:45:00* Test Item Value Reference Range Interpretation Comments AMMONIA (test code = AMM) 103 umol/L 11-32 H ARTERIAL BLOOD [id number] 18:47:00* Test Item Value Reference Range Interpretation Comments ARTERIAL BLOOD GAS PH (test code = PHA) 7.57 7.35-7.45 H H Results called to and read back by Violette MCGOVERN 18:46 - 04/18/2018; by SOCRATES ARTERIAL BLOOD GAS PCO2 (test code = PCO2A) 32.6 mm Hg 35-45 L ARTERIAL BLOOD GAS PO2 (test code = PO2A) 73.8 mmHg 80-100 L BICARBONATE TOTAL HCO3 (test code = HCO3) 28.9 mmol/L 23.0-27.0 H BASE EXCESS (test code = JIMMY) 6.8 mmol/L -3.0-5.0 HH Results called to and read back by Violette MCGOVERN 18:46 - 04/18/2018; by SOCRATES ABG O2 SATURATION (test code = SATA) 95.1 % 90.0-98.0 N ABG TYPE (test code = TYPEA) Arterial FIO2 (test code = FIO2A) 21.0 ABG SITE (test code = SITEA) Rt RADIAL ARTERY MODIFIED ALLENS (test code = MODALL) Yes CHECK PERFORMED HEMATOCRIT (test code = HCT/ABG) 32 % 35-47 L TOTAL HGB (test code = THB) 10.8 gram/dL 11.5-15.5 L HGB O2 SAT (test code = HBOSAT) 93.8 % 94.00-98.00 L CARBOXYHEMOGLOBIN (test code = HOHGBT) 1.0 %totalHg 0.5-1.5 N METHEMOGLOBIN (test code = METHGB) 0.4 % 0.0-1.50 N O2 CONTENT (test code = O2CT) 14.3 % vol 18.0-22.0 L [id number] 17:30:00* Test Item Value Reference Range Interpretation Comments GLUBED (test code = GLUBED) 78 mg/dL 74-106 N Performed by certified collar turner operator at [facility] B-TYPE NATRIURETIC [id number] 09:37:00* Test Item Value Reference Range Interpretation Comments B-TYPE NATRIURETIC PEPTIDE (test code = BNP) 8.63 pgram/mL 0-100 N URINALYSIS [id number] 09:18:00* Test Item Value Reference Range Interpretation Comments UA COLOR (test code = COLU) DARK YELLOW YELLOW A UA APPEARANCE (test code = APPU) CLEAR CLEAR UA GLUCOSE DIPSTICK (test code = DGLUU) NEGATIVE mg/dL NEGATIVE UA BILIRUBIN DIPSTICK (test code = BILU) NEGATIVE mg/dL NEGATIVE UA KETONE DIPSTICK (test code = KETU) Negative mg/dL NEGATIVE UA SPECIFIC GRAVITY (test code = SGU) 1.014 1.001-1.035 UA BLOOD DIPSTICK (test code = VIJAY) 3+ (Large) NEGATIVE A UA PH DIPSTICK (test code = RACHNA) 8.0 5.0-8.0 UA PROTEIN DIPSTICK (test code = PROU) 30 (1+) mg/dL NEGATIVE A UA UROBILINIOGEN DIPSTICK (test code = URO) 1 mg/dL (1+) mg/dL 0.0 -0.2 UA NITRITE DIPSTICK (test code = ROCKY) NEGATIVE NEGATIVE UA LEUKOCYTE ESTERASE W REFLEX (test code = LEUUR) NEGATIVE NEG ATIVE UA WBC (test code = WBCU) >50 per HPF 0-5 IN SOME URINARY TRACT INFECTIONS THERE MAY NOT BE ENOUGHWBCs IN THE URINE TO TRIGGER AN AUTOMATIC (REFLEX) URINECULTURE. A SEPERATE ORDER FOR URINE CULTURE IS RECOMMENDEDIF THERE IS STRONG SUPPORT FOR A URINARY TRACT INFECTIONCLINICALLY. UA RBC (test code = RBCU) 10-15 per HPF 0-5 A UA EPITHELIAL CELLS (test code = EPIU) FEW per HPF Few UA BACTERIA (test code = BACU) RARE per HPF NONE Urine Source? Clean CatchDRUGS OF ABUSE SCREEN [id number] 09:18:00* Test Item Value Reference Range Interpretation Comments URN COCAINE (test code = COCAURN) NEGATIVE <300 ng/mL URN CANNABINOIDS (test code = CANNABURN) POSITIVE <50 ng/mL A This test provides only a preliminary test [...] (e.g., employment testing, legaltesting). URN AMPHETAMINE (test code = AMPHETURN) NEGATIVE <1000 ng/mL URN BARBITURATE (test code = BARBITURN) NEGATIVE <200 ng/mL URN BENZODIAZEPINE (test code = BENZOURN) NEGATIVE <200 ng/mL URN OPIATES (test code = OPIATURN) NEGATIVE <300 ng/mL URN PHENCYCLIDINE (PCP) (test code = PHENCURN) NEGATIVE <25 ng/ mL URN METHADONE (test code = METHAURN) NEGATIVE <300 ng/mL Urine Source? Clean CatchURINALYSIS [id number] 09:12:00* Test Item Value Reference Range Interpretation Comments UA COLOR (test code = COLU) DARK YELLOW YELLOW A UA APPEARANCE (test code = APPU) CLEAR CLEAR UA GLUCOSE DIPSTICK (test code = DGLUU) NEGATIVE mg/dL NEGATIVE UA BILIRUBIN DIPSTICK (test code = BILU) NEGATIVE mg/dL NEGATIVE UA KETONE DIPSTICK (test code = KETU) Negative mg/dL NEGATIVE UA SPECIFIC GRAVITY (test code = SGU) 1.014 1.001-1.035 UA BLOOD DIPSTICK (test code = VIJAY) 3+ (Large) NEGATIVE A UA PH DIPSTICK (test code = RACHNA) 8.0 5.0-8.0 UA PROTEIN DIPSTICK (test code = PROU) 30 (1+) mg/dL NEGATIVE A UA UROBILINIOGEN DIPSTICK (test code = URO) 1 mg/dL (1+) mg/dL 0.0 -0.2 UA NITRITE DIPSTICK (test code = ROCKY) NEGATIVE NEGATIVE UA LEUKOCYTE ESTERASE W REFLEX (test code = LEUUR) NEGATIVE NEG ATIVE UA WBC (test code = WBCU) per HPF 0-5 Urine Source? Clean CatchDRUGS OF ABUSE SCREEN [id number] 09:12:00* Test Item Value Reference Range Interpretation Comments URN COCAINE (test code = COCAURN) NEGATIVE <300 ng/mL URN CANNABINOIDS (test code = CANNABURN) POSITIVE <50 ng/mL A This test provides only a preliminary test [...] (e.g., employment testing, legaltesting). URN AMPHETAMINE (test code = AMPHETURN) NEGATIVE <1000 ng/mL URN BARBITURATE (test code = BARBITURN) NEGATIVE <200 ng/mL URN BENZODIAZEPINE (test code = BENZOURN) NEGATIVE <200 ng/mL URN OPIATES (test code = OPIATURN) NEGATIVE <300 ng/mL URN PHENCYCLIDINE (PCP) (test code = PHENCURN) NEGATIVE <25 ng/ mL URN METHADONE (test code = METHAURN) NEGATIVE <300 ng/mL Urine Source? Clean CatchURINALYSIS [id number] 08:58:00* Test Item Value Reference Range Interpretation Comments UA COLOR (test code = COLU) DARK YELLOW YELLOW A UA APPEARANCE (test code = APPU) CLEAR CLEAR UA GLUCOSE DIPSTICK (test code = DGLUU) NEGATIVE mg/dL NEGATIVE UA BILIRUBIN DIPSTICK (test code = BILU) NEGATIVE mg/dL NEGATIVE UA KETONE DIPSTICK (test code = KETU) Negative mg/dL NEGATIVE UA SPECIFIC GRAVITY (test code = SGU) 1.014 1.001-1.035 UA BLOOD DIPSTICK (test code = VIJAY) 3+ (Large) NEGATIVE A UA PH DIPSTICK (test code = RACHNA) 8.0 5.0-8.0 UA PROTEIN DIPSTICK (test code = PROU) 30 (1+) mg/dL NEGATIVE A UA UROBILINIOGEN DIPSTICK (test code = URO) 1 mg/dL (1+) mg/dL 0.0 -0.2 UA NITRITE DIPSTICK (test code = ROCKY) NEGATIVE NEGATIVE UA LEUKOCYTE ESTERASE W REFLEX (test code = LEUUR) NEGATIVE NEG ATIVE UA WBC (test code = WBCU) per HPF 0-5 Urine Source? Clean CatchDRUGS OF ABUSE SCREEN [id number] 08:58:00* Test Item Value Reference Range Interpretation Comments URN COCAINE (test code = COCAURN) <300 ng/mL URN CANNABINOIDS (test code = CANNABURN) <50 ng/mL URN AMPHETAMINE (test code = AMPHETURN) <1000 ng/mL URN BARBITURATE (test code = BARBITURN) <200 ng/mL URN BENZODIAZEPINE (test code = BENZOURN) <200 ng/mL URN OPIATES (test code = OPIATURN) <300 ng/mL URN PHENCYCLIDINE (PCP) (test code = PHENCURN) <25 ng/ mL URN METHADONE (test code = METHAURN) <300 ng/mL Urine Source? Clean CatchBASIC METABOLIC [id number] 08:57:00* Test Item Value Reference Range Interpretation Comments SODIUM (test code = NA) 139 mmol/L 136-145 N POTASSIUM (test code = K) 5.7 mmol/L 3.5-5.1 H CHLORIDE (test code = CL) 102.0 mmol/L 98-107 N CARBON DIOXIDE (test code = CO2) 31.0 mmol/L 21-32 N ANION GAP (test code = GAP) 11.7 10-20 N GLUCOSE (test code = GLU) 194 mg/dL 74-106 H BLOOD UREA NITROGEN (test code = BUN) 27 mg/dL 7-18 H GLOMERULAR FILTRATION RATE (test code = GFR) 55 mL/min >=60 Estimated GFR by using Modified MDRD formula.Chronic kidney disease is defined as either kidney damageor GFR <60 mL/min/1.73 m2 for >3 months. CREATININE (test code = CREAT) 1.00 mg/dL 0.55-1.02 N Note change in reference range due to change in reagent. BUN/CREATININE RATIO (test code = BUN/CREA) 26.5 10-20 H CALCIUM (test code = CA) 7.5 mg/dL 8.5-10.1 L HEPATIC FUNCTION [id number] 08:57:00* Test Item Value Reference Range Interpretation Comments TOTAL PROTEIN (test code = PROT) 7.1 gram/dL 6.4-8.2 N ALBUMIN (test code = ALB) 2.0 g/dL 3.4-5.0 L GLOBULIN (test code = GLOB) 5.1 gram/dL 2.7-4.2 H ALBUMIN/GLOBULIN RATIO (test code = A/G) 0.4 0.75-1.50 L BILIRUBIN TOTAL (test code = BILT) 1.00 mg/dL 0.0-1.0 N BILIRUBIN DIRECT (test code = BILD) 0.37 mg/dL 0.0-0.20 H SGOT/AST (test code = AST) 62 IUnit/L 15-37 H SGPT/ALT (test code = ALT) 28 IUnit/L 12-78 N ALKALINE PHOSPHATASE TOTAL (test code = ALKP) 174 IUnit/L 45-117 H Note change in reference range due to change in reagent. [id number] 08:57:00* Test Item Value Reference Range Interpretation Comments TROPONIN-I (test code = TROPI) <0.015 ng/mL 0-0.045 N [id number] 08:57:00* Test Item Value Reference Range Interpretation Comments ACETAMINOPHEN (test code = ACET) < 10 mcg/mL 10-30 L A RANGE OF 10-30 mcg/mL IS A THERAPEUTIC RANGE. TOXIC CONCENTRATIONS: >150 mcg/mL AT 4 HOURS AFTER INGESTION >= 50 mcg/mL AT 12 HOURS AFTER INGESTION [id number] 08:57:00* Test Item Value Reference Range Interpretation Comments SALICYLATE (test code = LUNA) < 1.7 mg/dL 2.8-20.0 L [id number] 08:57:00* Test Item Value Reference Range Interpretation Comments ALCOHOL (test code = ALC) < 3 mg/dL 0.0-3.0 N -- INTERPRETIVE DATA NOTE: POSITIVE SCREENING RESULTS SHOULD BE CONSIDERED PRESUMPTIVE.WHEN COLLECTED FOR MEDICAL PURPOSES ONLY. SPECIMEN WILL NOTBE COLLECTED BY CHAIN OF CUSTODY.IF A CONFIRMATION OF POSITIVE RESULTS IS DESIRED, ACONFIRMATION TEST MUST BE REQUESTED BY THE PHYSICIAN AT ANADDITIONAL CHARGE TO THE PATIENT. CBC W/AUTO [id number] 08:53:00* Test Item Value Reference Range Interpretation Comments WHITE BLOOD CELL (test code = WBC) 3.7 K/mm3 4.5-12.5 L RED BLOOD CELL (test code = RBC) 3.06 mill/mm3 3.7-5.2 L HEMOGLOBIN (test code = HGB) 9.0 gram/dL 11.5-15.5 L HEMATOCRIT (test code = HCT) 29.5 % 36.0-46.0 L MEAN CELL VOLUME (test code = MCV) 96.4 fL 80-98 N MEAN CELL HGB (test code = MCH) 29.4 picogram 27.0-33.0 N MEAN CELL HGB CONCETRATION (test code = MCHC) 30.5 gram/dL 33.0-36. 0 L RED CELL DISTRIBUTION WIDTH (test code = RDW) 19.8 % 11.6-16. 2 H RED CELL DISTRIBUTION WIDTH SD (test code = RDW-SD) 69.3 fL 37 .0-51.0 H PLATELET COUNT (test code = PLT) 78 K/mm3 150-450 L MEAN PLATELET VOLUME (test code = MPV) 11.7 fL 6.7-11.0 H NEUTROPHIL % (test code = NT%) 73.8 % 39.0-69.0 H IMMATURE GRANULOCYTE % (test code = IG%) 1.1 % 0.0-5.0 N LYMPHOCYTE % (test code = LY%) 13.9 % 25.0-55.0 L MONOCYTE % (test code = MO%) 9.9 % 0.0-10.0 N EOSINOPHIL % (test code = EO%) 0.8 % 0.0-5.0 N BASOPHIL % (test code = BA%) 0.5 % 0.0-1.0 N NUCLEATED RBC % (test code = NRBC%) 0.0 % 0-0 N NEUTROPHIL # (test code = NT#) 2.76 K/mm3 1.8-7.7 N IMMATURE GRANULOCYTE # (test code = IG#) 0.04 x10 3/uL 0-0.03 H LYMPHOCYTE # (test code = LY#) 0.52 K/mm3 1.0-5.0 L MONOCYTE # (test code = MO#) 0.37 K/mm3 0-0.8 N EOSINOPHIL # (test code = EO#) 0.03 K/mm3 0.0-0.5 N BASOPHIL # (test code = BA#) 0.02 K/mm3 0.0-0.2 N NUCLEATED RBC # (test code = NRBC#) 0.00 K/mm3 0.0-0.1 N MANUAL DIFF REQUIRED (test code = MDIFF) NO, ONLY SCAN NEEDED DIFFERENTIAL [id number] 08:53:00* Test Item Value Reference Range Interpretation Comments STAIN ACCEPTABILITY (test code = STN ACCEPTABLE) STAIN ACCEPTABLE ANISOCYTOSIS (test code = ANISO) 1+ MACROCYTOSIS (test code = MACR) 1+ PLATELET ESTIMATE (test code = PLTEST) DECREASED PLATELET MORPHOLOGY (test code = PLTMORPH) SIZE VARIABLE [id number] 08:44:00* Test Item Value Reference Range Interpretation Comments AMMONIA (test code = AMM) 268 umol/L 11-32 H BASIC METABOLIC [id number] 08:43:00* Test Item Value Reference Range Interpretation Comments SODIUM (test code = NA) 139 mmol/L 136-145 N POTASSIUM (test code = K) 5.7 mmol/L 3.5-5.1 H CHLORIDE (test code = CL) 102.0 mmol/L 98-107 N CARBON DIOXIDE (test code = CO2) mmol/L 21-32 ANION GAP (test code = GAP) 10-20 GLUCOSE (test code = GLU) mg/dL 74-106 BLOOD UREA NITROGEN (test code = BUN) mg/dL 7-18 GLOMERULAR FILTRATION RATE (test code = GFR) mL/min >=60 CREATININE (test code = CREAT) mg/dL 0.55-1.02 BUN/CREATININE RATIO (test code = BUN/CREA) 10-20 CALCIUM (test code = CA) mg/dL 8.5-10.1 HEPATIC FUNCTION [id number] 08:43:00* Test Item Value Reference Range Interpretation Comments TOTAL PROTEIN (test code = PROT) gram/dL 6.4-8.2 ALBUMIN (test code = ALB) g/dL 3.4-5.0 GLOBULIN (test code = GLOB) gram/dL 2.7-4.2 ALBUMIN/GLOBULIN RATIO (test code = A/G) 0.75-1.50 BILIRUBIN TOTAL (test code = BILT) mg/dL 0.0-1.0 BILIRUBIN DIRECT (test code = BILD) mg/dL 0.0-0.20 SGOT/AST (test code = AST) IUnit/L 15-37 SGPT/ALT (test code = ALT) IUnit/L 12-78 ALKALINE PHOSPHATASE TOTAL (test code = ALKP) IUnit/L 45-117 [id number] 08:43:00* Test Item Value Reference Range Interpretation Comments TROPONIN-I (test code = TROPI) ng/mL 0-0.045 [id number] 08:43:00* Test Item Value Reference Range Interpretation Comments ACETAMINOPHEN (test code = ACET) mcg/mL 10-30 [id number] 08:43:00* Test Item Value Reference Range Interpretation Comments SALICYLATE (test code = LUNA) mg/dL 2.8-20.0 [id number] 08:43:00* Test Item Value Reference Range Interpretation Comments ALCOHOL (test code = ALC) mg/dL 0-3 PROTHROMBIN [id number] 08:40:00* Test Item Value Reference Range Interpretation Comments PROTHROMBIN TIME PATIENT (test code = PTP) 12.2 seconds 9.0-14.0 N INTERNATIONAL NORMAL RATIO (test code = INR) 1.0 0.8-1.2 N The therapeutic range for oral anticoagulant therapy [...] (2.5-3.5) IS PATIENT ON ANTICOAGULANTS? NTHROMBOPLASTIN TIME [id number] 08:40:00* Test Item Value Reference Range Interpretation Comments THROMBOPLASTIN TIME PARTIAL (test code = PTT) 30.5 seconds 25.0-36. 5 N IS PATIENT ON ANTICOAGULANTS? [id number] 08:33:00* Test Item Value Reference Range Interpretation Comments GLUBED (test code = GLUBED) 192 mg/dL 74-106 H Performed by certified collar turner operator at [facility] - CT HEAD/BRAIN W/O [id number] 08:14:00 Name: ALEX STANTON [facility] : 1950 Age/S: 67 / F [address] [facility] Unit #: [id number] [place]: [place] [address] Phys: Xavier Davila MD Acct: [id number] Dis Date: Status: REG ER PHONE #: [phone] Exam Date: 04/18/2018 0749 FAX #: [phone] Reason: Altered Mental Status EXAMS: CPT CODE: [id number] CT HEAD/BRAIN W/O CONT 33622 HISTORY: Confusion COMPARISON: March 22, 2018. CT [...] Montano RT(R),(MR),(CT); CTDI: DLP: Trnscb Date/Time: 04/18/2018 (08) [email or web address] Orig Print D/T: S: 04/18/2018 (0817) CTDI: DLP: PAGE 1 Signed Report CBC W/AUTO [id number] 08:12:00* Test Item Value Reference Range Interpretation Comments WHITE BLOOD CELL (test code = WBC) 3.7 K/mm3 4.5-12.5 L RED BLOOD CELL (test code = RBC) 3.06 mill/mm3 3.7-5.2 L HEMOGLOBIN (test code = HGB) 9.0 gram/dL 11.5-15.5 L HEMATOCRIT (test code = HCT) 29.5 % 36.0-46.0 L MEAN CELL VOLUME (test code = MCV) 96.4 fL 80-98 N MEAN CELL HGB (test code = MCH) 29.4 picogram 27.0-33.0 N MEAN CELL HGB CONCETRATION (test code = MCHC) 30.5 gram/dL 33.0-36. 0 L RED CELL DISTRIBUTION WIDTH (test code = RDW) 19.8 % 11.6-16. 2 H RED CELL DISTRIBUTION WIDTH SD (test code = RDW-SD) 69.3 fL 37 .0-51.0 H PLATELET COUNT (test code = PLT) 78 K/mm3 150-450 L MEAN PLATELET VOLUME (test code = MPV) 11.7 fL 6.7-11.0 H NEUTROPHIL % (test code = NT%) 73.8 % 39.0-69.0 H IMMATURE GRANULOCYTE % (test code = IG%) 1.1 % 0.0-5.0 N LYMPHOCYTE % (test code = LY%) 13.9 % 25.0-55.0 L MONOCYTE % (test code = MO%) 9.9 % 0.0-10.0 N EOSINOPHIL % (test code = EO%) 0.8 % 0.0-5.0 N BASOPHIL % (test code = BA%) 0.5 % 0.0-1.0 N NUCLEATED RBC % (test code = NRBC%) 0.0 % 0-0 N NEUTROPHIL # (test code = NT#) 2.76 K/mm3 1.8-7.7 N IMMATURE GRANULOCYTE # (test code = IG#) 0.04 x10 3/uL 0-0.03 H LYMPHOCYTE # (test code = LY#) 0.52 K/mm3 1.0-5.0 L MONOCYTE # (test code = MO#) 0.37 K/mm3 0-0.8 N EOSINOPHIL # (test code = EO#) 0.03 K/mm3 0.0-0.5 N BASOPHIL # (test code = BA#) 0.02 K/mm3 0.0-0.2 N NUCLEATED RBC # (test code = NRBC#) 0.00 K/mm3 0.0-0.1 N MANUAL DIFF REQUIRED (test code = MDIFF) NO, ONLY SCAN NEEDED DIFFERENTIAL [id number] 08:12:00* Test Item Value Reference Range Interpretation Comments STAIN ACCEPTABILITY (test code = STN ACCEPTABLE) CABOT RINGS (test code = CAB) MORPHOLOGY COMMENT (test code = MOC) PLATELET ESTIMATE (test code = PLTEST) PLATELET MORPHOLOGY (test code = PLTMORPH) CBC W/AUTO [id number] 08:12:00* Test Item Value Reference Range Interpretation Comments WHITE BLOOD CELL (test code = WBC) 3.7 K/mm3 4.5-12.5 L RED BLOOD CELL (test code = RBC) 3.06 mill/mm3 3.7-5.2 L HEMOGLOBIN (test code = HGB) 9.0 gram/dL 11.5-15.5 L HEMATOCRIT (test code = HCT) 29.5 % 36.0-46.0 L MEAN CELL VOLUME (test code = MCV) 96.4 fL 80-98 N MEAN CELL HGB (test code = MCH) 29.4 picogram 27.0-33.0 N MEAN CELL HGB CONCETRATION (test code = MCHC) 30.5 gram/dL 33.0-36. 0 L RED CELL DISTRIBUTION WIDTH (test code = RDW) 19.8 % 11.6-16. 2 H RED CELL DISTRIBUTION WIDTH SD (test code = RDW-SD) 69.3 fL 37 .0-51.0 H PLATELET COUNT (test code = PLT) 78 K/mm3 150-450 L MEAN PLATELET VOLUME (test code = MPV) 11.7 fL 6.7-11.0 H NEUTROPHIL % (test code = NT%) 73.8 % 39.0-69.0 H IMMATURE GRANULOCYTE % (test code = IG%) 1.1 % 0.0-5.0 N LYMPHOCYTE % (test code = LY%) 13.9 % 25.0-55.0 L MONOCYTE % (test code = MO%) 9.9 % 0.0-10.0 N EOSINOPHIL % (test code = EO%) 0.8 % 0.0-5.0 N BASOPHIL % (test code = BA%) 0.5 % 0.0-1.0 N NUCLEATED RBC % (test code = NRBC%) 0.0 % 0-0 N NEUTROPHIL # (test code = NT#) 2.76 K/mm3 1.8-7.7 N IMMATURE GRANULOCYTE # (test code = IG#) 0.04 x10 3/uL 0-0.03 H LYMPHOCYTE # (test code = LY#) 0.52 K/mm3 1.0-5.0 L MONOCYTE # (test code = MO#) 0.37 K/mm3 0-0.8 N EOSINOPHIL # (test code = EO#) 0.03 K/mm3 0.0-0.5 N BASOPHIL # (test code = BA#) 0.02 K/mm3 0.0-0.2 N NUCLEATED RBC # (test code = NRBC#) 0.00 K/mm3 0.0-0.1 N MANUAL DIFF REQUIRED (test code = MDIFF) NO, ONLY SCAN NEEDED DIFFERENTIAL [id number] 08:12:00* Test Item Value Reference Range Interpretation Comments STAIN ACCEPTABILITY (test code = STN ACCEPTABLE) CABOT RINGS (test code = CAB) MORPHOLOGY COMMENT (test code = MOC) PLATELET ESTIMATE (test code = PLTEST) PLATELET MORPHOLOGY (test code = PLTMORPH) CBC W/AUTO [id number] 08:12:00* Test Item Value Reference Range Interpretation Comments WHITE BLOOD CELL (test code = WBC) 3.7 K/mm3 4.5-12.5 L RED BLOOD CELL (test code = RBC) 3.06 mill/mm3 3.7-5.2 L HEMOGLOBIN (test code = HGB) 9.0 gram/dL 11.5-15.5 L HEMATOCRIT (test code = HCT) 29.5 % 36.0-46.0 L MEAN CELL VOLUME (test code = MCV) 96.4 fL 80-98 N MEAN CELL HGB (test code = MCH) 29.4 picogram 27.0-33.0 N MEAN CELL HGB CONCETRATION (test code = MCHC) 30.5 gram/dL 33.0-36. 0 L RED CELL DISTRIBUTION WIDTH (test code = RDW) 19.8 % 11.6-16. 2 H RED CELL DISTRIBUTION WIDTH SD (test code = RDW-SD) 69.3 fL 37 .0-51.0 H PLATELET COUNT (test code = PLT) 78 K/mm3 150-450 L MEAN PLATELET VOLUME (test code = MPV) 11.7 fL 6.7-11.0 H NEUTROPHIL % (test code = NT%) 73.8 % 39.0-69.0 H IMMATURE GRANULOCYTE % (test code = IG%) 1.1 % 0.0-5.0 N LYMPHOCYTE % (test code = LY%) 13.9 % 25.0-55.0 L MONOCYTE % (test code = MO%) 9.9 % 0.0-10.0 N EOSINOPHIL % (test code = EO%) 0.8 % 0.0-5.0 N BASOPHIL % (test code = BA%) 0.5 % 0.0-1.0 N NUCLEATED RBC % (test code = NRBC%) 0.0 % 0-0 N NEUTROPHIL # (test code = NT#) 2.76 K/mm3 1.8-7.7 N IMMATURE GRANULOCYTE # (test code = IG#) 0.04 x10 3/uL 0-0.03 H LYMPHOCYTE # (test code = LY#) 0.52 K/mm3 1.0-5.0 L MONOCYTE # (test code = MO#) 0.37 K/mm3 0-0.8 N EOSINOPHIL # (test code = EO#) 0.03 K/mm3 0.0-0.5 N BASOPHIL # (test code = BA#) 0.02 K/mm3 0.0-0.2 N NUCLEATED RBC # (test code = NRBC#) 0.00 K/mm3 0.0-0.1 N MANUAL DIFF REQUIRED (test code = MDIFF) NO, ONLY SCAN NEEDED DIFFERENTIAL [id number] 08:12:00* Test Item Value Reference Range Interpretation Comments STAIN ACCEPTABILITY (test code = STN ACCEPTABLE) MORPHOLOGY COMMENT (test code = MOC) PLATELET ESTIMATE (test code = PLTEST) PLATELET MORPHOLOGY (test code = PLTMORPH) CBC W/AUTO [id number] 08:12:00* Test Item Value Reference Range Interpretation Comments WHITE BLOOD CELL (test code = WBC) 3.7 K/mm3 4.5-12.5 L RED BLOOD CELL (test code = RBC) 3.06 mill/mm3 3.7-5.2 L HEMOGLOBIN (test code = HGB) 9.0 gram/dL 11.5-15.5 L HEMATOCRIT (test code = HCT) 29.5 % 36.0-46.0 L MEAN CELL VOLUME (test code = MCV) 96.4 fL 80-98 N MEAN CELL HGB (test code = MCH) 29.4 picogram 27.0-33.0 N MEAN CELL HGB CONCETRATION (test code = MCHC) 30.5 gram/dL 33.0-36. 0 L RED CELL DISTRIBUTION WIDTH (test code = RDW) 19.8 % 11.6-16. 2 H RED CELL DISTRIBUTION WIDTH SD (test code = RDW-SD) 69.3 fL 37 .0-51.0 H PLATELET COUNT (test code = PLT) 78 K/mm3 150-450 L MEAN PLATELET VOLUME (test code = MPV) 11.7 fL 6.7-11.0 H NEUTROPHIL % (test code = NT%) 73.8 % 39.0-69.0 H IMMATURE GRANULOCYTE % (test code = IG%) 1.1 % 0.0-5.0 N LYMPHOCYTE % (test code = LY%) 13.9 % 25.0-55.0 L MONOCYTE % (test code = MO%) 9.9 % 0.0-10.0 N EOSINOPHIL % (test code = EO%) 0.8 % 0.0-5.0 N BASOPHIL % (test code = BA%) 0.5 % 0.0-1.0 N NUCLEATED RBC % (test code = NRBC%) 0.0 % 0-0 N NEUTROPHIL # (test code = NT#) 2.76 K/mm3 1.8-7.7 N IMMATURE GRANULOCYTE # (test code = IG#) 0.04 x10 3/uL 0-0.03 H LYMPHOCYTE # (test code = LY#) 0.52 K/mm3 1.0-5.0 L MONOCYTE # (test code = MO#) 0.37 K/mm3 0-0.8 N EOSINOPHIL # (test code = EO#) 0.03 K/mm3 0.0-0.5 N BASOPHIL # (test code = BA#) 0.02 K/mm3 0.0-0.2 N NUCLEATED RBC # (test code = NRBC#) 0.00 K/mm3 0.0-0.1 N MANUAL DIFF REQUIRED (test code = MDIFF) NO, ONLY SCAN NEEDED DIFFERENTIAL [id number] 08:12:00* Test Item Value Reference Range Interpretation Comments STAIN ACCEPTABILITY (test code = STN ACCEPTABLE) CABOT RINGS (test code = CAB) MORPHOLOGY COMMENT (test code = MOC) PLATELET ESTIMATE (test code = PLTEST) PLATELET MORPHOLOGY (test code = PLTMORPH) - XR CHEST 1 [id number] 07:35:00 FAX: Xavier Davila [place]: B St: REG FAX: John Motta MD [phone] Name: ALEX STANTON [facility] : 1950 Age/S: 67/F [address] [facility] Unit #: [id number] Loc: [place] [address] Phys: Xavier Davila MD Acct: [id number] Dis Date: Status: REG ER PHONE #: [phone] Exam Date: 04/18/2018724 FAX #: [phone] Reason: Altered Mental Status EXAMS: CPT CODE: [id number] XR CHEST 1 V 90561 EXAM: Chest x-ray, one view; INFORMATION: Altered [...] S: 04/18/2018 (0738) PAGE 1 Signed Report [id number] 16:52:00* Test Item Value Reference Range Interpretation Comments GLUBED (test code = GLUBED) 221 mg/dL 74-106 H Performed by certified collar turner operator at [facility] BASIC METABOLIC [id number] 11:02:00* Test Item Value Reference Range Interpretation Comments SODIUM (test code = NA) 141 mmol/L 136-145 N POTASSIUM (test code = K) 3.5 mmol/L 3.5-5.1 N CHLORIDE (test code = CL) 103.0 mmol/L 98-107 N CARBON DIOXIDE (test code = CO2) 27.0 mmol/L 21-32 N ANION GAP (test code = GAP) 14.5 10-20 N GLUCOSE (test code = GLU) 94 mg/dL 74-106 N BLOOD UREA NITROGEN (test code = BUN) 14 mg/dL 7-18 N GLOMERULAR FILTRATION RATE (test code = GFR) 50 mL/min >=60 Estimated GFR by using Modified MDRD formula.Chronic kidney disease is defined as either kidney damageor GFR <60 mL/min/1.73 m2 for >3 months. CREATININE (test code = CREAT) 1.10 mg/dL 0.55-1.02 H Note change in reference range due to change in reagent. BUN/CREATININE RATIO (test code = BUN/CREA) 12.5 10-20 N CALCIUM (test code = CA) 7.7 mg/dL 8.5-10.1 L BASIC METABOLIC [id number] 10:52:00* Test Item Value Reference Range Interpretation Comments SODIUM (test code = NA) 141 mmol/L 136-145 N POTASSIUM (test code = K) 3.5 mmol/L 3.5-5.1 N CHLORIDE (test code = CL) 103.0 mmol/L 98-107 N CARBON DIOXIDE (test code = CO2) mmol/L 21-32 ANION GAP (test code = GAP) 10-20 GLUCOSE (test code = GLU) mg/dL 74-106 BLOOD UREA NITROGEN (test code = BUN) mg/dL 7-18 GLOMERULAR FILTRATION RATE (test code = GFR) mL/min >=60 CREATININE (test code = CREAT) mg/dL 0.55-1.02 BUN/CREATININE RATIO (test code = BUN/CREA) 10-20 CALCIUM (test code = CA) mg/dL 8.5-10.1 CBC W/AUTO [id number] 05:23:00* Test Item Value Reference Range Interpretation Comments WHITE BLOOD CELL (test code = WBC) 3.0 K/mm3 4.5-12.5 L RED BLOOD CELL (test code = RBC) 2.81 mill/mm3 3.7-5.2 L HEMOGLOBIN (test code = HGB) 8.2 gram/dL 11.5-15.5 L HEMATOCRIT (test code = HCT) 26.1 % 36.0-46.0 L MEAN CELL VOLUME (test code = MCV) 92.9 fL 80-98 N MEAN CELL HGB (test code = MCH) 29.2 picogram 27.0-33.0 N MEAN CELL HGB CONCETRATION (test code = MCHC) 31.4 gram/dL 33.0-36. 0 L RED CELL DISTRIBUTION WIDTH (test code = RDW) 18.2 % 11.6-16. 2 H RED CELL DISTRIBUTION WIDTH SD (test code = RDW-SD) 59.7 fL 37 .0-51.0 H PLATELET COUNT (test code = PLT) 81 K/mm3 150-450 L MEAN PLATELET VOLUME (test code = MPV) 10.9 fL 6.7-11.0 N NEUTROPHIL % (test code = NT%) 53.6 % 39.0-69.0 N IMMATURE GRANULOCYTE % (test code = IG%) 0.3 % 0.0-5.0 N LYMPHOCYTE % (test code = LY%) 31.5 % 25.0-55.0 N MONOCYTE % (test code = MO%) 12.6 % 0.0-10.0 H EOSINOPHIL % (test code = EO%) 1.0 % 0.0-5.0 N BASOPHIL % (test code = BA%) 1.0 % 0.0-1.0 N NUCLEATED RBC % (test code = NRBC%) 0.0 % 0-0 N NEUTROPHIL # (test code = NT#) 1.62 K/mm3 1.8-7.7 L IMMATURE GRANULOCYTE # (test code = IG#) 0.01 x10 3/uL 0-0.03 N LYMPHOCYTE # (test code = LY#) 0.95 K/mm3 1.0-5.0 L MONOCYTE # (test code = MO#) 0.38 K/mm3 0-0.8 N EOSINOPHIL # (test code = EO#) 0.03 K/mm3 0.0-0.5 N BASOPHIL # (test code = BA#) 0.03 K/mm3 0.0-0.2 N NUCLEATED RBC # (test code = NRBC#) 0.00 K/mm3 0.0-0.1 N MANUAL DIFF REQUIRED (test code = MDIFF) NO, ONLY SCAN NEEDED DIFFERENTIAL [id number] 05:23:00* Test Item Value Reference Range Interpretation Comments STAIN ACCEPTABILITY (test code = STN ACCEPTABLE) STAIN ACCEPTABLE ANISOCYTOSIS (test code = ANISO) 1+ PLATELET ESTIMATE (test code = PLTEST) DECREASED PLATELET MORPHOLOGY (test code = PLTMORPH) SIZE VARIABLE CBC W/AUTO [id number] 04:55:00* Test Item Value Reference Range Interpretation Comments WHITE BLOOD CELL (test code = WBC) 3.0 K/mm3 4.5-12.5 L RED BLOOD CELL (test code = RBC) 2.81 mill/mm3 3.7-5.2 L HEMOGLOBIN (test code = HGB) 8.2 gram/dL 11.5-15.5 L HEMATOCRIT (test code = HCT) 26.1 % 36.0-46.0 L MEAN CELL VOLUME (test code = MCV) 92.9 fL 80-98 N MEAN CELL HGB (test code = MCH) 29.2 picogram 27.0-33.0 N MEAN CELL HGB CONCETRATION (test code = MCHC) 31.4 gram/dL 33.0-36. 0 L RED CELL DISTRIBUTION WIDTH (test code = RDW) 18.2 % 11.6-16. 2 H RED CELL DISTRIBUTION WIDTH SD (test code = RDW-SD) 59.7 fL 37 .0-51.0 H PLATELET COUNT (test code = PLT) 81 K/mm3 150-450 L MEAN PLATELET VOLUME (test code = MPV) 10.9 fL 6.7-11.0 N NEUTROPHIL % (test code = NT%) 53.6 % 39.0-69.0 N IMMATURE GRANULOCYTE % (test code = IG%) 0.3 % 0.0-5.0 N LYMPHOCYTE % (test code = LY%) 31.5 % 25.0-55.0 N MONOCYTE % (test code = MO%) 12.6 % 0.0-10.0 H EOSINOPHIL % (test code = EO%) 1.0 % 0.0-5.0 N BASOPHIL % (test code = BA%) 1.0 % 0.0-1.0 N NUCLEATED RBC % (test code = NRBC%) 0.0 % 0-0 N NEUTROPHIL # (test code = NT#) 1.62 K/mm3 1.8-7.7 L IMMATURE GRANULOCYTE # (test code = IG#) 0.01 x10 3/uL 0-0.03 N LYMPHOCYTE # (test code = LY#) 0.95 K/mm3 1.0-5.0 L MONOCYTE # (test code = MO#) 0.38 K/mm3 0-0.8 N EOSINOPHIL # (test code = EO#) 0.03 K/mm3 0.0-0.5 N BASOPHIL # (test code = BA#) 0.03 K/mm3 0.0-0.2 N NUCLEATED RBC # (test code = NRBC#) 0.00 K/mm3 0.0-0.1 N MANUAL DIFF REQUIRED (test code = MDIFF) NO, ONLY SCAN NEEDED DIFFERENTIAL [id number] 04:55:00* Test Item Value Reference Range Interpretation Comments STAIN ACCEPTABILITY (test code = STN ACCEPTABLE) CABOT RINGS (test code = CAB) MORPHOLOGY COMMENT (test code = MOC) PLATELET ESTIMATE (test code = PLTEST) PLATELET MORPHOLOGY (test code = PLTMORPH) CBC W/AUTO [id number] 04:55:00* Test Item Value Reference Range Interpretation Comments WHITE BLOOD CELL (test code = WBC) 3.0 K/mm3 4.5-12.5 L RED BLOOD CELL (test code = RBC) 2.81 mill/mm3 3.7-5.2 L HEMOGLOBIN (test code = HGB) 8.2 gram/dL 11.5-15.5 L HEMATOCRIT (test code = HCT) 26.1 % 36.0-46.0 L MEAN CELL VOLUME (test code = MCV) 92.9 fL 80-98 N MEAN CELL HGB (test code = MCH) 29.2 picogram 27.0-33.0 N MEAN CELL HGB CONCETRATION (test code = MCHC) 31.4 gram/dL 33.0-36. 0 L RED CELL DISTRIBUTION WIDTH (test code = RDW) 18.2 % 11.6-16. 2 H RED CELL DISTRIBUTION WIDTH SD (test code = RDW-SD) 59.7 fL 37 .0-51.0 H PLATELET COUNT (test code = PLT) 81 K/mm3 150-450 L MEAN PLATELET VOLUME (test code = MPV) 10.9 fL 6.7-11.0 N NEUTROPHIL % (test code = NT%) 53.6 % 39.0-69.0 N IMMATURE GRANULOCYTE % (test code = IG%) 0.3 % 0.0-5.0 N LYMPHOCYTE % (test code = LY%) 31.5 % 25.0-55.0 N MONOCYTE % (test code = MO%) 12.6 % 0.0-10.0 H EOSINOPHIL % (test code = EO%) 1.0 % 0.0-5.0 N BASOPHIL % (test code = BA%) 1.0 % 0.0-1.0 N NUCLEATED RBC % (test code = NRBC%) 0.0 % 0-0 N NEUTROPHIL # (test code = NT#) 1.62 K/mm3 1.8-7.7 L IMMATURE GRANULOCYTE # (test code = IG#) 0.01 x10 3/uL 0-0.03 N LYMPHOCYTE # (test code = LY#) 0.95 K/mm3 1.0-5.0 L MONOCYTE # (test code = MO#) 0.38 K/mm3 0-0.8 N EOSINOPHIL # (test code = EO#) 0.03 K/mm3 0.0-0.5 N BASOPHIL # (test code = BA#) 0.03 K/mm3 0.0-0.2 N NUCLEATED RBC # (test code = NRBC#) 0.00 K/mm3 0.0-0.1 N MANUAL DIFF REQUIRED (test code = MDIFF) NO, ONLY SCAN NEEDED DIFFERENTIAL [id number] 04:55:00* Test Item Value Reference Range Interpretation Comments STAIN ACCEPTABILITY (test code = STN ACCEPTABLE) MORPHOLOGY COMMENT (test code = MOC) PLATELET ESTIMATE (test code = PLTEST) PLATELET MORPHOLOGY (test code = PLTMORPH) CBC W/AUTO [id number] 04:55:00* Test Item Value Reference Range Interpretation Comments WHITE BLOOD CELL (test code = WBC) 3.0 K/mm3 4.5-12.5 L RED BLOOD CELL (test code = RBC) 2.81 mill/mm3 3.7-5.2 L HEMOGLOBIN (test code = HGB) 8.2 gram/dL 11.5-15.5 L HEMATOCRIT (test code = HCT) 26.1 % 36.0-46.0 L MEAN CELL VOLUME (test code = MCV) 92.9 fL 80-98 N MEAN CELL HGB (test code = MCH) 29.2 picogram 27.0-33.0 N MEAN CELL HGB CONCETRATION (test code = MCHC) 31.4 gram/dL 33.0-36. 0 L RED CELL DISTRIBUTION WIDTH (test code = RDW) 18.2 % 11.6-16. 2 H RED CELL DISTRIBUTION WIDTH SD (test code = RDW-SD) 59.7 fL 37 .0-51.0 H PLATELET COUNT (test code = PLT) 81 K/mm3 150-450 L MEAN PLATELET VOLUME (test code = MPV) 10.9 fL 6.7-11.0 N NEUTROPHIL % (test code = NT%) 53.6 % 39.0-69.0 N IMMATURE GRANULOCYTE % (test code = IG%) 0.3 % 0.0-5.0 N LYMPHOCYTE % (test code = LY%) 31.5 % 25.0-55.0 N MONOCYTE % (test code = MO%) 12.6 % 0.0-10.0 H EOSINOPHIL % (test code = EO%) 1.0 % 0.0-5.0 N BASOPHIL % (test code = BA%) 1.0 % 0.0-1.0 N NUCLEATED RBC % (test code = NRBC%) 0.0 % 0-0 N NEUTROPHIL # (test code = NT#) 1.62 K/mm3 1.8-7.7 L IMMATURE GRANULOCYTE # (test code = IG#) 0.01 x10 3/uL 0-0.03 N LYMPHOCYTE # (test code = LY#) 0.95 K/mm3 1.0-5.0 L MONOCYTE # (test code = MO#) 0.38 K/mm3 0-0.8 N EOSINOPHIL # (test code = EO#) 0.03 K/mm3 0.0-0.5 N BASOPHIL # (test code = BA#) 0.03 K/mm3 0.0-0.2 N NUCLEATED RBC # (test code = NRBC#) 0.00 K/mm3 0.0-0.1 N MANUAL DIFF REQUIRED (test code = MDIFF) NO, ONLY SCAN NEEDED DIFFERENTIAL [id number] 04:55:00* Test Item Value Reference Range Interpretation Comments STAIN ACCEPTABILITY (test code = STN ACCEPTABLE) MORPHOLOGY COMMENT (test code = MOC) PLATELET ESTIMATE (test code = PLTEST) PLATELET MORPHOLOGY (test code = PLTMORPH) CBC W/AUTO [id number] 04:55:00* Test Item Value Reference Range Interpretation Comments WHITE BLOOD CELL (test code = WBC) 3.0 K/mm3 4.5-12.5 L RED BLOOD CELL (test code = RBC) 2.81 mill/mm3 3.7-5.2 L HEMOGLOBIN (test code = HGB) 8.2 gram/dL 11.5-15.5 L HEMATOCRIT (test code = HCT) 26.1 % 36.0-46.0 L MEAN CELL VOLUME (test code = MCV) 92.9 fL 80-98 N MEAN CELL HGB (test code = MCH) 29.2 picogram 27.0-33.0 N MEAN CELL HGB CONCETRATION (test code = MCHC) 31.4 gram/dL 33.0-36. 0 L RED CELL DISTRIBUTION WIDTH (test code = RDW) 18.2 % 11.6-16. 2 H RED CELL DISTRIBUTION WIDTH SD (test code = RDW-SD) 59.7 fL 37 .0-51.0 H PLATELET COUNT (test code = PLT) 81 K/mm3 150-450 L MEAN PLATELET VOLUME (test code = MPV) 10.9 fL 6.7-11.0 N NEUTROPHIL % (test code = NT%) 53.6 % 39.0-69.0 N IMMATURE GRANULOCYTE % (test code = IG%) 0.3 % 0.0-5.0 N LYMPHOCYTE % (test code = LY%) 31.5 % 25.0-55.0 N MONOCYTE % (test code = MO%) 12.6 % 0.0-10.0 H EOSINOPHIL % (test code = EO%) 1.0 % 0.0-5.0 N BASOPHIL % (test code = BA%) 1.0 % 0.0-1.0 N NUCLEATED RBC % (test code = NRBC%) 0.0 % 0-0 N NEUTROPHIL # (test code = NT#) 1.62 K/mm3 1.8-7.7 L IMMATURE GRANULOCYTE # (test code = IG#) 0.01 x10 3/uL 0-0.03 N LYMPHOCYTE # (test code = LY#) 0.95 K/mm3 1.0-5.0 L MONOCYTE # (test code = MO#) 0.38 K/mm3 0-0.8 N EOSINOPHIL # (test code = EO#) 0.03 K/mm3 0.0-0.5 N BASOPHIL # (test code = BA#) 0.03 K/mm3 0.0-0.2 N NUCLEATED RBC # (test code = NRBC#) 0.00 K/mm3 0.0-0.1 N MANUAL DIFF REQUIRED (test code = MDIFF) NO, ONLY SCAN NEEDED DIFFERENTIAL [id number] 04:55:00* Test Item Value Reference Range Interpretation Comments STAIN ACCEPTABILITY (test code = STN ACCEPTABLE) CABOT RINGS (test code = CAB) MORPHOLOGY COMMENT (test code = MOC) PLATELET ESTIMATE (test code = PLTEST) PLATELET MORPHOLOGY (test code = PLTMORPH) [id number] 20:45:00* Test Item Value Reference Range Interpretation Comments GLUBED (test code = GLUBED) 124 mg/dL 74-106 H Performed by certified collar turner operator at [facility] [id number] 17:04:00* Test Item Value Reference Range Interpretation Comments GLUBED (test code = GLUBED) 93 mg/dL 74-106 N Performed by certified collar turner operator at [facility] [id number] 12:50:00* Test Item Value Reference Range Interpretation Comments GLUBED (test code = GLUBED) 144 mg/dL 74-106 H Performed by certified collar turner operator at [facility] [id number] 12:38:00* Test Item Value Reference Range Interpretation Comments AMMONIA (test code = AMM) 117 umol/L 11-32 H [id number] 08:41:00* Test Item Value Reference Range Interpretation Comments GLUBED (test code = GLUBED) 99 mg/dL 74-106 N Performed by certified collar turner operator at [facility] CBC W/AUTO [id number] 06:01:00* Test Item Value Reference Range Interpretation Comments WHITE BLOOD CELL (test code = WBC) 2.8 K/mm3 4.5-12.5 L RED BLOOD CELL (test code = RBC) 2.59 mill/mm3 3.7-5.2 L HEMOGLOBIN (test code = HGB) 7.3 gram/dL 11.5-15.5 L HEMATOCRIT (test code = HCT) 24.2 % 36.0-46.0 L MEAN CELL VOLUME (test code = MCV) 93.4 fL 80-98 N MEAN CELL HGB (test code = MCH) 28.2 picogram 27.0-33.0 N MEAN CELL HGB CONCETRATION (test code = MCHC) 30.2 gram/dL 33.0-36. 0 L RED CELL DISTRIBUTION WIDTH (test code = RDW) 18.8 % 11.6-16. 2 H RED CELL DISTRIBUTION WIDTH SD (test code = RDW-SD) 62.8 fL 37 .0-51.0 H PLATELET COUNT (test code = PLT) 80 K/mm3 150-450 L MEAN PLATELET VOLUME (test code = MPV) 11.1 fL 6.7-11.0 H NEUTROPHIL % (test code = NT%) 52.4 % 39.0-69.0 N IMMATURE GRANULOCYTE % (test code = IG%) 0.4 % 0.0-5.0 N LYMPHOCYTE % (test code = LY%) 29.3 % 25.0-55.0 N MONOCYTE % (test code = MO%) 16.8 % 0.0-10.0 H EOSINOPHIL % (test code = EO%) 0.4 % 0.0-5.0 N BASOPHIL % (test code = BA%) 0.7 % 0.0-1.0 N NUCLEATED RBC % (test code = NRBC%) 0.0 % 0-0 N NEUTROPHIL # (test code = NT#) 1.47 K/mm3 1.8-7.7 L IMMATURE GRANULOCYTE # (test code = IG#) 0.01 x10 3/uL 0-0.03 N LYMPHOCYTE # (test code = LY#) 0.82 K/mm3 1.0-5.0 L MONOCYTE # (test code = MO#) 0.47 K/mm3 0-0.8 N EOSINOPHIL # (test code = EO#) 0.01 K/mm3 0.0-0.5 N BASOPHIL # (test code = BA#) 0.02 K/mm3 0.0-0.2 N NUCLEATED RBC # (test code = NRBC#) 0.00 K/mm3 0.0-0.1 N MANUAL DIFF REQUIRED (test code = MDIFF) NO, ONLY SCAN NEEDED DIFFERENTIAL [id number] 06:01:00* Test Item Value Reference Range Interpretation Comments STAIN ACCEPTABILITY (test code = STN ACCEPTABLE) STAIN ACCEPTABLE ANISOCYTOSIS (test code = ANISO) 1+ PLATELET ESTIMATE (test code = PLTEST) DECREASED PLATELET MORPHOLOGY (test code = PLTMORPH) NORMAL CBC W/AUTO [id number] 05:44:00* Test Item Value Reference Range Interpretation Comments WHITE BLOOD CELL (test code = WBC) 2.8 K/mm3 4.5-12.5 L RED BLOOD CELL (test code = RBC) 2.59 mill/mm3 3.7-5.2 L HEMOGLOBIN (test code = HGB) 7.3 gram/dL 11.5-15.5 L HEMATOCRIT (test code = HCT) 24.2 % 36.0-46.0 L MEAN CELL VOLUME (test code = MCV) 93.4 fL 80-98 N MEAN CELL HGB (test code = MCH) 28.2 picogram 27.0-33.0 N MEAN CELL HGB CONCETRATION (test code = MCHC) 30.2 gram/dL 33.0-36. 0 L RED CELL DISTRIBUTION WIDTH (test code = RDW) 18.8 % 11.6-16. 2 H RED CELL DISTRIBUTION WIDTH SD (test code = RDW-SD) 62.8 fL 37 .0-51.0 H PLATELET COUNT (test code = PLT) 80 K/mm3 150-450 L MEAN PLATELET VOLUME (test code = MPV) 11.1 fL 6.7-11.0 H NEUTROPHIL % (test code = NT%) 52.4 % 39.0-69.0 N IMMATURE GRANULOCYTE % (test code = IG%) 0.4 % 0.0-5.0 N LYMPHOCYTE % (test code = LY%) 29.3 % 25.0-55.0 N MONOCYTE % (test code = MO%) 16.8 % 0.0-10.0 H EOSINOPHIL % (test code = EO%) 0.4 % 0.0-5.0 N BASOPHIL % (test code = BA%) 0.7 % 0.0-1.0 N NUCLEATED RBC % (test code = NRBC%) 0.0 % 0-0 N NEUTROPHIL # (test code = NT#) 1.47 K/mm3 1.8-7.7 L IMMATURE GRANULOCYTE # (test code = IG#) 0.01 x10 3/uL 0-0.03 N LYMPHOCYTE # (test code = LY#) 0.82 K/mm3 1.0-5.0 L MONOCYTE # (test code = MO#) 0.47 K/mm3 0-0.8 N EOSINOPHIL # (test code = EO#) 0.01 K/mm3 0.0-0.5 N BASOPHIL # (test code = BA#) 0.02 K/mm3 0.0-0.2 N NUCLEATED RBC # (test code = NRBC#) 0.00 K/mm3 0.0-0.1 N MANUAL DIFF REQUIRED (test code = MDIFF) NO, ONLY SCAN NEEDED DIFFERENTIAL [id number] 05:44:00* Test Item Value Reference Range Interpretation Comments STAIN ACCEPTABILITY (test code = STN ACCEPTABLE) CABOT RINGS (test code = CAB) MORPHOLOGY COMMENT (test code = MOC) PLATELET ESTIMATE (test code = PLTEST) PLATELET MORPHOLOGY (test code = PLTMORPH) CBC W/AUTO [id number] 05:44:00* Test Item Value Reference Range Interpretation Comments WHITE BLOOD CELL (test code = WBC) 2.8 K/mm3 4.5-12.5 L RED BLOOD CELL (test code = RBC) 2.59 mill/mm3 3.7-5.2 L HEMOGLOBIN (test code = HGB) 7.3 gram/dL 11.5-15.5 L HEMATOCRIT (test code = HCT) 24.2 % 36.0-46.0 L MEAN CELL VOLUME (test code = MCV) 93.4 fL 80-98 N MEAN CELL HGB (test code = MCH) 28.2 picogram 27.0-33.0 N MEAN CELL HGB CONCETRATION (test code = MCHC) 30.2 gram/dL 33.0-36. 0 L RED CELL DISTRIBUTION WIDTH (test code = RDW) 18.8 % 11.6-16. 2 H RED CELL DISTRIBUTION WIDTH SD (test code = RDW-SD) 62.8 fL 37 .0-51.0 H PLATELET COUNT (test code = PLT) 80 K/mm3 150-450 L MEAN PLATELET VOLUME (test code = MPV) 11.1 fL 6.7-11.0 H NEUTROPHIL % (test code = NT%) 52.4 % 39.0-69.0 N IMMATURE GRANULOCYTE % (test code = IG%) 0.4 % 0.0-5.0 N LYMPHOCYTE % (test code = LY%) 29.3 % 25.0-55.0 N MONOCYTE % (test code = MO%) 16.8 % 0.0-10.0 H EOSINOPHIL % (test code = EO%) 0.4 % 0.0-5.0 N BASOPHIL % (test code = BA%) 0.7 % 0.0-1.0 N NUCLEATED RBC % (test code = NRBC%) 0.0 % 0-0 N NEUTROPHIL # (test code = NT#) 1.47 K/mm3 1.8-7.7 L IMMATURE GRANULOCYTE # (test code = IG#) 0.01 x10 3/uL 0-0.03 N LYMPHOCYTE # (test code = LY#) 0.82 K/mm3 1.0-5.0 L MONOCYTE # (test code = MO#) 0.47 K/mm3 0-0.8 N EOSINOPHIL # (test code = EO#) 0.01 K/mm3 0.0-0.5 N BASOPHIL # (test code = BA#) 0.02 K/mm3 0.0-0.2 N NUCLEATED RBC # (test code = NRBC#) 0.00 K/mm3 0.0-0.1 N MANUAL DIFF REQUIRED (test code = MDIFF) NO, ONLY SCAN NEEDED DIFFERENTIAL [id number] 05:44:00* Test Item Value Reference Range Interpretation Comments STAIN ACCEPTABILITY (test code = STN ACCEPTABLE) CABOT RINGS (test code = CAB) MORPHOLOGY COMMENT (test code = MOC) PLATELET ESTIMATE (test code = PLTEST) PLATELET MORPHOLOGY (test code = PLTMORPH) CBC W/AUTO [id number] 05:44:00* Test Item Value Reference Range Interpretation Comments WHITE BLOOD CELL (test code = WBC) 2.8 K/mm3 4.5-12.5 L RED BLOOD CELL (test code = RBC) 2.59 mill/mm3 3.7-5.2 L HEMOGLOBIN (test code = HGB) 7.3 gram/dL 11.5-15.5 L HEMATOCRIT (test code = HCT) 24.2 % 36.0-46.0 L MEAN CELL VOLUME (test code = MCV) 93.4 fL 80-98 N MEAN CELL HGB (test code = MCH) 28.2 picogram 27.0-33.0 N MEAN CELL HGB CONCETRATION (test code = MCHC) 30.2 gram/dL 33.0-36. 0 L RED CELL DISTRIBUTION WIDTH (test code = RDW) 18.8 % 11.6-16. 2 H RED CELL DISTRIBUTION WIDTH SD (test code = RDW-SD) 62.8 fL 37 .0-51.0 H PLATELET COUNT (test code = PLT) 80 K/mm3 150-450 L MEAN PLATELET VOLUME (test code = MPV) 11.1 fL 6.7-11.0 H NEUTROPHIL % (test code = NT%) 52.4 % 39.0-69.0 N IMMATURE GRANULOCYTE % (test code = IG%) 0.4 % 0.0-5.0 N LYMPHOCYTE % (test code = LY%) 29.3 % 25.0-55.0 N MONOCYTE % (test code = MO%) 16.8 % 0.0-10.0 H EOSINOPHIL % (test code = EO%) 0.4 % 0.0-5.0 N BASOPHIL % (test code = BA%) 0.7 % 0.0-1.0 N NUCLEATED RBC % (test code = NRBC%) 0.0 % 0-0 N NEUTROPHIL # (test code = NT#) 1.47 K/mm3 1.8-7.7 L IMMATURE GRANULOCYTE # (test code = IG#) 0.01 x10 3/uL 0-0.03 N LYMPHOCYTE # (test code = LY#) 0.82 K/mm3 1.0-5.0 L MONOCYTE # (test code = MO#) 0.47 K/mm3 0-0.8 N EOSINOPHIL # (test code = EO#) 0.01 K/mm3 0.0-0.5 N BASOPHIL # (test code = BA#) 0.02 K/mm3 0.0-0.2 N NUCLEATED RBC # (test code = NRBC#) 0.00 K/mm3 0.0-0.1 N MANUAL DIFF REQUIRED (test code = MDIFF) NO, ONLY SCAN NEEDED DIFFERENTIAL [id number] 05:44:00* Test Item Value Reference Range Interpretation Comments STAIN ACCEPTABILITY (test code = STN ACCEPTABLE) MORPHOLOGY COMMENT (test code = MOC) PLATELET ESTIMATE (test code = PLTEST) PLATELET MORPHOLOGY (test code = PLTMORPH) CBC W/AUTO [id number] 05:44:00* Test Item Value Reference Range Interpretation Comments WHITE BLOOD CELL (test code = WBC) 2.8 K/mm3 4.5-12.5 L RED BLOOD CELL (test code = RBC) 2.59 mill/mm3 3.7-5.2 L HEMOGLOBIN (test code = HGB) 7.3 gram/dL 11.5-15.5 L HEMATOCRIT (test code = HCT) 24.2 % 36.0-46.0 L MEAN CELL VOLUME (test code = MCV) 93.4 fL 80-98 N MEAN CELL HGB (test code = MCH) 28.2 picogram 27.0-33.0 N MEAN CELL HGB CONCETRATION (test code = MCHC) 30.2 gram/dL 33.0-36. 0 L RED CELL DISTRIBUTION WIDTH (test code = RDW) 18.8 % 11.6-16. 2 H RED CELL DISTRIBUTION WIDTH SD (test code = RDW-SD) 62.8 fL 37 .0-51.0 H PLATELET COUNT (test code = PLT) 80 K/mm3 150-450 L MEAN PLATELET VOLUME (test code = MPV) 11.1 fL 6.7-11.0 H NEUTROPHIL % (test code = NT%) 52.4 % 39.0-69.0 N IMMATURE GRANULOCYTE % (test code = IG%) 0.4 % 0.0-5.0 N LYMPHOCYTE % (test code = LY%) 29.3 % 25.0-55.0 N MONOCYTE % (test code = MO%) 16.8 % 0.0-10.0 H EOSINOPHIL % (test code = EO%) 0.4 % 0.0-5.0 N BASOPHIL % (test code = BA%) 0.7 % 0.0-1.0 N NUCLEATED RBC % (test code = NRBC%) 0.0 % 0-0 N NEUTROPHIL # (test code = NT#) 1.47 K/mm3 1.8-7.7 L IMMATURE GRANULOCYTE # (test code = IG#) 0.01 x10 3/uL 0-0.03 N LYMPHOCYTE # (test code = LY#) 0.82 K/mm3 1.0-5.0 L MONOCYTE # (test code = MO#) 0.47 K/mm3 0-0.8 N EOSINOPHIL # (test code = EO#) 0.01 K/mm3 0.0-0.5 N BASOPHIL # (test code = BA#) 0.02 K/mm3 0.0-0.2 N NUCLEATED RBC # (test code = NRBC#) 0.00 K/mm3 0.0-0.1 N MANUAL DIFF REQUIRED (test code = MDIFF) NO, ONLY SCAN NEEDED DIFFERENTIAL [id number] 05:44:00* Test Item Value Reference Range Interpretation Comments STAIN ACCEPTABILITY (test code = STN ACCEPTABLE) CABOT RINGS (test code = CAB) MORPHOLOGY COMMENT (test code = MOC) PLATELET ESTIMATE (test code = PLTEST) PLATELET MORPHOLOGY (test code = PLTMORPH) [id number] 20:59:00* Test Item Value Reference Range Interpretation Comments GLUBED (test code = GLUBED) 125 mg/dL 74-106 H Performed by certified collar turner operator at [facility] [id number] 16:43:00* Test Item Value Reference Range Interpretation Comments GLUBED (test code = GLUBED) 162 mg/dL 74-106 H Performed by certified collar turner operator at [facility] [id number] 11:57:00* Test Item Value Reference Range Interpretation Comments GLUBED (test code = GLUBED) 162 mg/dL 74-106 H Performed by certified collar turner operator at [facility] CBC W/AUTO [id number] 08:43:00* Test Item Value Reference Range Interpretation Comments WHITE BLOOD CELL (test code = WBC) 2.7 K/mm3 4.5-12.5 L RED BLOOD CELL (test code = RBC) 2.54 mill/mm3 3.7-5.2 L HEMOGLOBIN (test code = HGB) 7.4 gram/dL 11.5-15.5 L HEMATOCRIT (test code = HCT) 23.2 % 36.0-46.0 L MEAN CELL VOLUME (test code = MCV) 91.3 fL 80-98 N MEAN CELL HGB (test code = MCH) 29.1 picogram 27.0-33.0 N MEAN CELL HGB CONCETRATION (test code = MCHC) 31.9 gram/dL 33.0-36. 0 L RED CELL DISTRIBUTION WIDTH (test code = RDW) 19.2 % 11.6-16. 2 H RED CELL DISTRIBUTION WIDTH SD (test code = RDW-SD) 63.5 fL 37 .0-51.0 H PLATELET COUNT (test code = PLT) 86 K/mm3 150-450 L RESULT VERIFIED BY REPEAT ANALYSIS MEAN PLATELET VOLUME (test code = MPV) 11.4 fL 6.7-11.0 H NEUTROPHIL % (test code = NT%) 53.6 % 39.0-69.0 N IMMATURE GRANULOCYTE % (test code = IG%) 0.4 % 0.0-5.0 N LYMPHOCYTE % (test code = LY%) 32.5 % 25.0-55.0 N MONOCYTE % (test code = MO%) 12.4 % 0.0-10.0 H EOSINOPHIL % (test code = EO%) 0.0 % 0.0-5.0 N BASOPHIL % (test code = BA%) 1.1 % 0.0-1.0 H NUCLEATED RBC % (test code = NRBC%) 0.0 % 0-0 N NEUTROPHIL # (test code = NT#) 1.47 K/mm3 1.8-7.7 L IMMATURE GRANULOCYTE # (test code = IG#) 0.01 x10 3/uL 0-0.03 N LYMPHOCYTE # (test code = LY#) 0.89 K/mm3 1.0-5.0 L MONOCYTE # (test code = MO#) 0.34 K/mm3 0-0.8 N EOSINOPHIL # (test code = EO#) 0.00 K/mm3 0.0-0.5 N BASOPHIL # (test code = BA#) 0.03 K/mm3 0.0-0.2 N NUCLEATED RBC # (test code = NRBC#) 0.00 K/mm3 0.0-0.1 N MANUAL DIFF REQUIRED (test code = MDIFF) NO, ONLY SCAN NEEDED DIFFERENTIAL [id number] 08:43:00* Test Item Value Reference Range Interpretation Comments STAIN ACCEPTABILITY (test code = STN ACCEPTABLE) STAIN ACCEPTABLE POLYCHROMASIA (test code = POLC) 1+ ANISOCYTOSIS (test code = ANISO) 1+ MACROCYTOSIS (test code = MACR) 1+ PLATELET ESTIMATE (test code = PLTEST) DECREASED PLATELET MORPHOLOGY (test code = PLTMORPH) NORMAL [id number] 08:23:00* Test Item Value Reference Range Interpretation Comments GLUBED (test code = GLUBED) 129 mg/dL 74-106 H Performed by certified collar turner operator at [facility] [id number] 08:06:00* Test Item Value Reference Range Interpretation Comments GLUBED (test code = GLUBED) 125 mg/dL 74-106 H Performed by certified collar turner operator at [facility] CBC W/AUTO [id number] 07:35:00* Test Item Value Reference Range Interpretation Comments WHITE BLOOD CELL (test code = WBC) 2.7 K/mm3 4.5-12.5 L RED BLOOD CELL (test code = RBC) 2.54 mill/mm3 3.7-5.2 L HEMOGLOBIN (test code = HGB) 7.4 gram/dL 11.5-15.5 L HEMATOCRIT (test code = HCT) 23.2 % 36.0-46.0 L MEAN CELL VOLUME (test code = MCV) 91.3 fL 80-98 N MEAN CELL HGB (test code = MCH) 29.1 picogram 27.0-33.0 N MEAN CELL HGB CONCETRATION (test code = MCHC) 31.9 gram/dL 33.0-36. 0 L RED CELL DISTRIBUTION WIDTH (test code = RDW) 19.2 % 11.6-16. 2 H RED CELL DISTRIBUTION WIDTH SD (test code = RDW-SD) 63.5 fL 37 .0-51.0 H PLATELET COUNT (test code = PLT) 86 K/mm3 150-450 L RESULT VERIFIED BY REPEAT ANALYSIS MEAN PLATELET VOLUME (test code = MPV) 11.4 fL 6.7-11.0 H NEUTROPHIL % (test code = NT%) 53.6 % 39.0-69.0 N IMMATURE GRANULOCYTE % (test code = IG%) 0.4 % 0.0-5.0 N LYMPHOCYTE % (test code = LY%) 32.5 % 25.0-55.0 N MONOCYTE % (test code = MO%) 12.4 % 0.0-10.0 H EOSINOPHIL % (test code = EO%) 0.0 % 0.0-5.0 N BASOPHIL % (test code = BA%) 1.1 % 0.0-1.0 H NUCLEATED RBC % (test code = NRBC%) 0.0 % 0-0 N NEUTROPHIL # (test code = NT#) 1.47 K/mm3 1.8-7.7 L IMMATURE GRANULOCYTE # (test code = IG#) 0.01 x10 3/uL 0-0.03 N LYMPHOCYTE # (test code = LY#) 0.89 K/mm3 1.0-5.0 L MONOCYTE # (test code = MO#) 0.34 K/mm3 0-0.8 N EOSINOPHIL # (test code = EO#) 0.00 K/mm3 0.0-0.5 N BASOPHIL # (test code = BA#) 0.03 K/mm3 0.0-0.2 N NUCLEATED RBC # (test code = NRBC#) 0.00 K/mm3 0.0-0.1 N MANUAL DIFF REQUIRED (test code = MDIFF) NO, ONLY SCAN NEEDED DIFFERENTIAL [id number] 07:35:00* Test Item Value Reference Range Interpretation Comments STAIN ACCEPTABILITY (test code = STN ACCEPTABLE) CABOT RINGS (test code = CAB) MORPHOLOGY COMMENT (test code = MOC) PLATELET ESTIMATE (test code = PLTEST) PLATELET MORPHOLOGY (test code = PLTMORPH) CBC W/AUTO [id number] 07:35:00* Test Item Value Reference Range Interpretation Comments WHITE BLOOD CELL (test code = WBC) 2.7 K/mm3 4.5-12.5 L RED BLOOD CELL (test code = RBC) 2.54 mill/mm3 3.7-5.2 L HEMOGLOBIN (test code = HGB) 7.4 gram/dL 11.5-15.5 L HEMATOCRIT (test code = HCT) 23.2 % 36.0-46.0 L MEAN CELL VOLUME (test code = MCV) 91.3 fL 80-98 N MEAN CELL HGB (test code = MCH) 29.1 picogram 27.0-33.0 N MEAN CELL HGB CONCETRATION (test code = MCHC) 31.9 gram/dL 33.0-36. 0 L RED CELL DISTRIBUTION WIDTH (test code = RDW) 19.2 % 11.6-16. 2 H RED CELL DISTRIBUTION WIDTH SD (test code = RDW-SD) 63.5 fL 37 .0-51.0 H PLATELET COUNT (test code = PLT) 86 K/mm3 150-450 L RESULT VERIFIED BY REPEAT ANALYSIS MEAN PLATELET VOLUME (test code = MPV) 11.4 fL 6.7-11.0 H NEUTROPHIL % (test code = NT%) 53.6 % 39.0-69.0 N IMMATURE GRANULOCYTE % (test code = IG%) 0.4 % 0.0-5.0 N LYMPHOCYTE % (test code = LY%) 32.5 % 25.0-55.0 N MONOCYTE % (test code = MO%) 12.4 % 0.0-10.0 H EOSINOPHIL % (test code = EO%) 0.0 % 0.0-5.0 N BASOPHIL % (test code = BA%) 1.1 % 0.0-1.0 H NUCLEATED RBC % (test code = NRBC%) 0.0 % 0-0 N NEUTROPHIL # (test code = NT#) 1.47 K/mm3 1.8-7.7 L IMMATURE GRANULOCYTE # (test code = IG#) 0.01 x10 3/uL 0-0.03 N LYMPHOCYTE # (test code = LY#) 0.89 K/mm3 1.0-5.0 L MONOCYTE # (test code = MO#) 0.34 K/mm3 0-0.8 N EOSINOPHIL # (test code = EO#) 0.00 K/mm3 0.0-0.5 N BASOPHIL # (test code = BA#) 0.03 K/mm3 0.0-0.2 N NUCLEATED RBC # (test code = NRBC#) 0.00 K/mm3 0.0-0.1 N MANUAL DIFF REQUIRED (test code = MDIFF) NO, ONLY SCAN NEEDED DIFFERENTIAL [id number] 07:35:00* Test Item Value Reference Range Interpretation Comments STAIN ACCEPTABILITY (test code = STN ACCEPTABLE) CABOT RINGS (test code = CAB) MORPHOLOGY COMMENT (test code = MOC) PLATELET ESTIMATE (test code = PLTEST) PLATELET MORPHOLOGY (test code = PLTMORPH) CBC W/AUTO [id number] 07:35:00* Test Item Value Reference Range Interpretation Comments WHITE BLOOD CELL (test code = WBC) 2.7 K/mm3 4.5-12.5 L RED BLOOD CELL (test code = RBC) 2.54 mill/mm3 3.7-5.2 L HEMOGLOBIN (test code = HGB) 7.4 gram/dL 11.5-15.5 L HEMATOCRIT (test code = HCT) 23.2 % 36.0-46.0 L MEAN CELL VOLUME (test code = MCV) 91.3 fL 80-98 N MEAN CELL HGB (test code = MCH) 29.1 picogram 27.0-33.0 N MEAN CELL HGB CONCETRATION (test code = MCHC) 31.9 gram/dL 33.0-36. 0 L RED CELL DISTRIBUTION WIDTH (test code = RDW) 19.2 % 11.6-16. 2 H RED CELL DISTRIBUTION WIDTH SD (test code = RDW-SD) 63.5 fL 37 .0-51.0 H PLATELET COUNT (test code = PLT) 86 K/mm3 150-450 L RESULT VERIFIED BY REPEAT ANALYSIS MEAN PLATELET VOLUME (test code = MPV) 11.4 fL 6.7-11.0 H NEUTROPHIL % (test code = NT%) 53.6 % 39.0-69.0 N IMMATURE GRANULOCYTE % (test code = IG%) 0.4 % 0.0-5.0 N LYMPHOCYTE % (test code = LY%) 32.5 % 25.0-55.0 N MONOCYTE % (test code = MO%) 12.4 % 0.0-10.0 H EOSINOPHIL % (test code = EO%) 0.0 % 0.0-5.0 N BASOPHIL % (test code = BA%) 1.1 % 0.0-1.0 H NUCLEATED RBC % (test code = NRBC%) 0.0 % 0-0 N NEUTROPHIL # (test code = NT#) 1.47 K/mm3 1.8-7.7 L IMMATURE GRANULOCYTE # (test code = IG#) 0.01 x10 3/uL 0-0.03 N LYMPHOCYTE # (test code = LY#) 0.89 K/mm3 1.0-5.0 L MONOCYTE # (test code = MO#) 0.34 K/mm3 0-0.8 N EOSINOPHIL # (test code = EO#) 0.00 K/mm3 0.0-0.5 N BASOPHIL # (test code = BA#) 0.03 K/mm3 0.0-0.2 N NUCLEATED RBC # (test code = NRBC#) 0.00 K/mm3 0.0-0.1 N MANUAL DIFF REQUIRED (test code = MDIFF) NO, ONLY SCAN NEEDED DIFFERENTIAL [id number] 07:35:00* Test Item Value Reference Range Interpretation Comments STAIN ACCEPTABILITY (test code = STN ACCEPTABLE) MORPHOLOGY COMMENT (test code = MOC) PLATELET ESTIMATE (test code = PLTEST) PLATELET MORPHOLOGY (test code = PLTMORPH) CBC W/AUTO [id number] 07:35:00* Test Item Value Reference Range Interpretation Comments WHITE BLOOD CELL (test code = WBC) 2.7 K/mm3 4.5-12.5 L RED BLOOD CELL (test code = RBC) 2.54 mill/mm3 3.7-5.2 L HEMOGLOBIN (test code = HGB) 7.4 gram/dL 11.5-15.5 L HEMATOCRIT (test code = HCT) 23.2 % 36.0-46.0 L MEAN CELL VOLUME (test code = MCV) 91.3 fL 80-98 N MEAN CELL HGB (test code = MCH) 29.1 picogram 27.0-33.0 N MEAN CELL HGB CONCETRATION (test code = MCHC) 31.9 gram/dL 33.0-36. 0 L RED CELL DISTRIBUTION WIDTH (test code = RDW) 19.2 % 11.6-16. 2 H RED CELL DISTRIBUTION WIDTH SD (test code = RDW-SD) 63.5 fL 37 .0-51.0 H PLATELET COUNT (test code = PLT) 86 K/mm3 150-450 L RESULT VERIFIED BY REPEAT ANALYSIS MEAN PLATELET VOLUME (test code = MPV) 11.4 fL 6.7-11.0 H NEUTROPHIL % (test code = NT%) 53.6 % 39.0-69.0 N IMMATURE GRANULOCYTE % (test code = IG%) 0.4 % 0.0-5.0 N LYMPHOCYTE % (test code = LY%) 32.5 % 25.0-55.0 N MONOCYTE % (test code = MO%) 12.4 % 0.0-10.0 H EOSINOPHIL % (test code = EO%) 0.0 % 0.0-5.0 N BASOPHIL % (test code = BA%) 1.1 % 0.0-1.0 H NUCLEATED RBC % (test code = NRBC%) 0.0 % 0-0 N NEUTROPHIL # (test code = NT#) 1.47 K/mm3 1.8-7.7 L IMMATURE GRANULOCYTE # (test code = IG#) 0.01 x10 3/uL 0-0.03 N LYMPHOCYTE # (test code = LY#) 0.89 K/mm3 1.0-5.0 L MONOCYTE # (test code = MO#) 0.34 K/mm3 0-0.8 N EOSINOPHIL # (test code = EO#) 0.00 K/mm3 0.0-0.5 N BASOPHIL # (test code = BA#) 0.03 K/mm3 0.0-0.2 N NUCLEATED RBC # (test code = NRBC#) 0.00 K/mm3 0.0-0.1 N MANUAL DIFF REQUIRED (test code = MDIFF) NO, ONLY SCAN NEEDED DIFFERENTIAL [id number] 07:35:00* Test Item Value Reference Range Interpretation Comments STAIN ACCEPTABILITY (test code = STN ACCEPTABLE) CABOT RINGS (test code = CAB) MORPHOLOGY COMMENT (test code = MOC) PLATELET ESTIMATE (test code = PLTEST) PLATELET MORPHOLOGY (test code = PLTMORPH) [id number] 20:37:00* Test Item Value Reference Range Interpretation Comments GLUBED (test code = GLUBED) 140 mg/dL 74-106 H Performed by certified collar turner operator at [facility] [id number] 12:48:00* Test Item Value Reference Range Interpretation Comments GLUBED (test code = GLUBED) 116 mg/dL 74-106 H Performed by certified collar turner operator at [facility] CBC W/AUTO [id number] 12:16:00* Test Item Value Reference Range Interpretation Comments WHITE BLOOD CELL (test code = WBC) 2.8 K/mm3 4.5-12.5 L RED BLOOD CELL (test code = RBC) 2.73 mill/mm3 3.7-5.2 L HEMOGLOBIN (test code = HGB) 7.9 gram/dL 11.5-15.5 L HEMATOCRIT (test code = HCT) 25.2 % 36.0-46.0 L MEAN CELL VOLUME (test code = MCV) 92.3 fL 80-98 N MEAN CELL HGB (test code = MCH) 28.9 picogram 27.0-33.0 N MEAN CELL HGB CONCETRATION (test code = MCHC) 31.3 gram/dL 33.0-36. 0 L RED CELL DISTRIBUTION WIDTH (test code = RDW) 19.5 % 11.6-16. 2 H RED CELL DISTRIBUTION WIDTH SD (test code = RDW-SD) 65.2 fL 37 .0-51.0 H PLATELET COUNT (test code = PLT) 61 K/mm3 150-450 L RESULT VERIFIED BY REPEAT ANALYSIS MEAN PLATELET VOLUME (test code = MPV) 11.3 fL 6.7-11.0 H NEUTROPHIL % (test code = NT%) 64.6 % 39.0-69.0 N IMMATURE GRANULOCYTE % (test code = IG%) 0.0 % 0.0-5.0 N LYMPHOCYTE % (test code = LY%) 22.4 % 25.0-55.0 L MONOCYTE % (test code = MO%) 11.9 % 0.0-10.0 H EOSINOPHIL % (test code = EO%) 0.4 % 0.0-5.0 N BASOPHIL % (test code = BA%) 0.7 % 0.0-1.0 N NUCLEATED RBC % (test code = NRBC%) 0.0 % 0-0 N NEUTROPHIL # (test code = NT#) 1.79 K/mm3 1.8-7.7 L IMMATURE GRANULOCYTE # (test code = IG#) 0.00 x10 3/uL 0-0.03 N LYMPHOCYTE # (test code = LY#) 0.62 K/mm3 1.0-5.0 L MONOCYTE # (test code = MO#) 0.33 K/mm3 0-0.8 N EOSINOPHIL # (test code = EO#) 0.01 K/mm3 0.0-0.5 N BASOPHIL # (test code = BA#) 0.02 K/mm3 0.0-0.2 N NUCLEATED RBC # (test code = NRBC#) 0.00 K/mm3 0.0-0.1 N MANUAL DIFF REQUIRED (test code = MDIFF) NO, ONLY SCAN NEEDED 04/08/18 [id number] [id number] 12:16:00* Test Item Value Reference Range Interpretation Comments STAIN ACCEPTABILITY (test code = STN ACCEPTABLE) STAIN ACCEPTABLE POLYCHROMASIA (test code = POLC) 1+ PLATELET ESTIMATE (test code = PLTEST) DECREASED PLATELET MORPHOLOGY (test code = PLTMORPH) NORMAL 04/08/18 [id number] 11:52:00* Test Item Value Reference Range Interpretation Comments GLUBED (test code = GLUBED) 91 mg/dL 74-106 N Performed by certified collar turner operator at [facility] BASIC METABOLIC [id number] 11:13:00* Test Item Value Reference Range Interpretation Comments SODIUM (test code = NA) 139 mmol/L 136-145 N POTASSIUM (test code = K) 4.9 mmol/L 3.5-5.1 N CHLORIDE (test code = CL) 108.0 mmol/L 98-107 H CARBON DIOXIDE (test code = CO2) 25.0 mmol/L 21-32 N ANION GAP (test code = GAP) 10.9 10-20 N GLUCOSE (test code = GLU) 95 mg/dL 74-106 N BLOOD UREA NITROGEN (test code = BUN) 17 mg/dL 7-18 N GLOMERULAR FILTRATION RATE (test code = GFR) > 60 mL/min >=60 Estimated GFR by using Modified MDRD formula.Chronic kidney disease is defined as either kidney damageor GFR <60 mL/min/1.73 m2 for >3 months. CREATININE (test code = CREAT) 0.80 mg/dL 0.55-1.02 N Note change in reference range due to change in reagent. BUN/CREATININE RATIO (test code = BUN/CREA) 20.4 10-20 H CALCIUM (test code = CA) 7.7 mg/dL 8.5-10.1 L 04/08/18 [facility] W/AUTO [id number] 10:31:00* Test Item Value Reference Range Interpretation Comments WHITE BLOOD CELL (test code = WBC) 2.8 K/mm3 4.5-12.5 L RED BLOOD CELL (test code = RBC) 2.73 mill/mm3 3.7-5.2 L HEMOGLOBIN (test code = HGB) 7.9 gram/dL 11.5-15.5 L HEMATOCRIT (test code = HCT) 25.2 % 36.0-46.0 L MEAN CELL VOLUME (test code = MCV) 92.3 fL 80-98 N MEAN CELL HGB (test code = MCH) 28.9 picogram 27.0-33.0 N MEAN CELL HGB CONCETRATION (test code = MCHC) 31.3 gram/dL 33.0-36. 0 L RED CELL DISTRIBUTION WIDTH (test code = RDW) 19.5 % 11.6-16. 2 H RED CELL DISTRIBUTION WIDTH SD (test code = RDW-SD) 65.2 fL 37 .0-51.0 H PLATELET COUNT (test code = PLT) 61 K/mm3 150-450 L RESULT VERIFIED BY REPEAT ANALYSIS MEAN PLATELET VOLUME (test code = MPV) 11.3 fL 6.7-11.0 H NEUTROPHIL % (test code = NT%) 64.6 % 39.0-69.0 N IMMATURE GRANULOCYTE % (test code = IG%) 0.0 % 0.0-5.0 N LYMPHOCYTE % (test code = LY%) 22.4 % 25.0-55.0 L MONOCYTE % (test code = MO%) 11.9 % 0.0-10.0 H EOSINOPHIL % (test code = EO%) 0.4 % 0.0-5.0 N BASOPHIL % (test code = BA%) 0.7 % 0.0-1.0 N NUCLEATED RBC % (test code = NRBC%) 0.0 % 0-0 N NEUTROPHIL # (test code = NT#) 1.79 K/mm3 1.8-7.7 L IMMATURE GRANULOCYTE # (test code = IG#) 0.00 x10 3/uL 0-0.03 N LYMPHOCYTE # (test code = LY#) 0.62 K/mm3 1.0-5.0 L MONOCYTE # (test code = MO#) 0.33 K/mm3 0-0.8 N EOSINOPHIL # (test code = EO#) 0.01 K/mm3 0.0-0.5 N BASOPHIL # (test code = BA#) 0.02 K/mm3 0.0-0.2 N NUCLEATED RBC # (test code = NRBC#) 0.00 K/mm3 0.0-0.1 N MANUAL DIFF REQUIRED (test code = MDIFF) NO, ONLY SCAN NEEDED 04/08/18 [id number] [id number] 10:31:00* Test Item Value Reference Range Interpretation Comments STAIN ACCEPTABILITY (test code = STN ACCEPTABLE) CABOT RINGS (test code = CAB) MORPHOLOGY COMMENT (test code = MOC) PLATELET ESTIMATE (test code = PLTEST) PLATELET MORPHOLOGY (test code = PLTMORPH) 04/08/18 0803CBC W/AUTO [id number] 10:31:00* Test Item Value Reference Range Interpretation Comments WHITE BLOOD CELL (test code = WBC) 2.8 K/mm3 4.5-12.5 L RED BLOOD CELL (test code = RBC) 2.73 mill/mm3 3.7-5.2 L HEMOGLOBIN (test code = HGB) 7.9 gram/dL 11.5-15.5 L HEMATOCRIT (test code = HCT) 25.2 % 36.0-46.0 L MEAN CELL VOLUME (test code = MCV) 92.3 fL 80-98 N MEAN CELL HGB (test code = MCH) 28.9 picogram 27.0-33.0 N MEAN CELL HGB CONCETRATION (test code = MCHC) 31.3 gram/dL 33.0-36. 0 L RED CELL DISTRIBUTION WIDTH (test code = RDW) 19.5 % 11.6-16. 2 H RED CELL DISTRIBUTION WIDTH SD (test code = RDW-SD) 65.2 fL 37 .0-51.0 H PLATELET COUNT (test code = PLT) 61 K/mm3 150-450 L RESULT VERIFIED BY REPEAT ANALYSIS MEAN PLATELET VOLUME (test code = MPV) 11.3 fL 6.7-11.0 H NEUTROPHIL % (test code = NT%) 64.6 % 39.0-69.0 N IMMATURE GRANULOCYTE % (test code = IG%) 0.0 % 0.0-5.0 N LYMPHOCYTE % (test code = LY%) 22.4 % 25.0-55.0 L MONOCYTE % (test code = MO%) 11.9 % 0.0-10.0 H EOSINOPHIL % (test code = EO%) 0.4 % 0.0-5.0 N BASOPHIL % (test code = BA%) 0.7 % 0.0-1.0 N NUCLEATED RBC % (test code = NRBC%) 0.0 % 0-0 N NEUTROPHIL # (test code = NT#) 1.79 K/mm3 1.8-7.7 L IMMATURE GRANULOCYTE # (test code = IG#) 0.00 x10 3/uL 0-0.03 N LYMPHOCYTE # (test code = LY#) 0.62 K/mm3 1.0-5.0 L MONOCYTE # (test code = MO#) 0.33 K/mm3 0-0.8 N EOSINOPHIL # (test code = EO#) 0.01 K/mm3 0.0-0.5 N BASOPHIL # (test code = BA#) 0.02 K/mm3 0.0-0.2 N NUCLEATED RBC # (test code = NRBC#) 0.00 K/mm3 0.0-0.1 N MANUAL DIFF REQUIRED (test code = MDIFF) NO, ONLY SCAN NEEDED 04/08/18 [id number] [id number] 10:31:00* Test Item Value Reference Range Interpretation Comments STAIN ACCEPTABILITY (test code = STN ACCEPTABLE) MORPHOLOGY COMMENT (test code = MOC) PLATELET ESTIMATE (test code = PLTEST) PLATELET MORPHOLOGY (test code = PLTMORPH) 04/08/18 0803CB W/AUTO [id number] 10:31:00* Test Item Value Reference Range Interpretation Comments WHITE BLOOD CELL (test code = WBC) 2.8 K/mm3 4.5-12.5 L RED BLOOD CELL (test code = RBC) 2.73 mill/mm3 3.7-5.2 L HEMOGLOBIN (test code = HGB) 7.9 gram/dL 11.5-15.5 L HEMATOCRIT (test code = HCT) 25.2 % 36.0-46.0 L MEAN CELL VOLUME (test code = MCV) 92.3 fL 80-98 N MEAN CELL HGB (test code = MCH) 28.9 picogram 27.0-33.0 N MEAN CELL HGB CONCETRATION (test code = MCHC) 31.3 gram/dL 33.0-36. 0 L RED CELL DISTRIBUTION WIDTH (test code = RDW) 19.5 % 11.6-16. 2 H RED CELL DISTRIBUTION WIDTH SD (test code = RDW-SD) 65.2 fL 37 .0-51.0 H PLATELET COUNT (test code = PLT) 61 K/mm3 150-450 L RESULT VERIFIED BY REPEAT ANALYSIS MEAN PLATELET VOLUME (test code = MPV) 11.3 fL 6.7-11.0 H NEUTROPHIL % (test code = NT%) 64.6 % 39.0-69.0 N IMMATURE GRANULOCYTE % (test code = IG%) 0.0 % 0.0-5.0 N LYMPHOCYTE % (test code = LY%) 22.4 % 25.0-55.0 L MONOCYTE % (test code = MO%) 11.9 % 0.0-10.0 H EOSINOPHIL % (test code = EO%) 0.4 % 0.0-5.0 N BASOPHIL % (test code = BA%) 0.7 % 0.0-1.0 N NUCLEATED RBC % (test code = NRBC%) 0.0 % 0-0 N NEUTROPHIL # (test code = NT#) 1.79 K/mm3 1.8-7.7 L IMMATURE GRANULOCYTE # (test code = IG#) 0.00 x10 3/uL 0-0.03 N LYMPHOCYTE # (test code = LY#) 0.62 K/mm3 1.0-5.0 L MONOCYTE # (test code = MO#) 0.33 K/mm3 0-0.8 N EOSINOPHIL # (test code = EO#) 0.01 K/mm3 0.0-0.5 N BASOPHIL # (test code = BA#) 0.02 K/mm3 0.0-0.2 N NUCLEATED RBC # (test code = NRBC#) 0.00 K/mm3 0.0-0.1 N MANUAL DIFF REQUIRED (test code = MDIFF) NO, ONLY SCAN NEEDED 04/08/18 0803DIFFERENTIAL [id number] 10:31:00* Test Item Value Reference Range Interpretation Comments STAIN ACCEPTABILITY (test code = STN ACCEPTABLE) MORPHOLOGY COMMENT (test code = MOC) PLATELET ESTIMATE (test code = PLTEST) PLATELET MORPHOLOGY (test code = PLTMORPH) 04/08/18 0803CBC W/AUTO [id number] 10:31:00* Test Item Value Reference Range Interpretation Comments WHITE BLOOD CELL (test code = WBC) 2.8 K/mm3 4.5-12.5 L RED BLOOD CELL (test code = RBC) 2.73 mill/mm3 3.7-5.2 L HEMOGLOBIN (test code = HGB) 7.9 gram/dL 11.5-15.5 L HEMATOCRIT (test code = HCT) 25.2 % 36.0-46.0 L MEAN CELL VOLUME (test code = MCV) 92.3 fL 80-98 N MEAN CELL HGB (test code = MCH) 28.9 picogram 27.0-33.0 N MEAN CELL HGB CONCETRATION (test code = MCHC) 31.3 gram/dL 33.0-36. 0 L RED CELL DISTRIBUTION WIDTH (test code = RDW) 19.5 % 11.6-16. 2 H RED CELL DISTRIBUTION WIDTH SD (test code = RDW-SD) 65.2 fL 37 .0-51.0 H PLATELET COUNT (test code = PLT) 61 K/mm3 150-450 L RESULT VERIFIED BY REPEAT ANALYSIS MEAN PLATELET VOLUME (test code = MPV) 11.3 fL 6.7-11.0 H NEUTROPHIL % (test code = NT%) 64.6 % 39.0-69.0 N IMMATURE GRANULOCYTE % (test code = IG%) 0.0 % 0.0-5.0 N LYMPHOCYTE % (test code = LY%) 22.4 % 25.0-55.0 L MONOCYTE % (test code = MO%) 11.9 % 0.0-10.0 H EOSINOPHIL % (test code = EO%) 0.4 % 0.0-5.0 N BASOPHIL % (test code = BA%) 0.7 % 0.0-1.0 N NUCLEATED RBC % (test code = NRBC%) 0.0 % 0-0 N NEUTROPHIL # (test code = NT#) 1.79 K/mm3 1.8-7.7 L IMMATURE GRANULOCYTE # (test code = IG#) 0.00 x10 3/uL 0-0.03 N LYMPHOCYTE # (test code = LY#) 0.62 K/mm3 1.0-5.0 L MONOCYTE # (test code = MO#) 0.33 K/mm3 0-0.8 N EOSINOPHIL # (test code = EO#) 0.01 K/mm3 0.0-0.5 N BASOPHIL # (test code = BA#) 0.02 K/mm3 0.0-0.2 N NUCLEATED RBC # (test code = NRBC#) 0.00 K/mm3 0.0-0.1 N MANUAL DIFF REQUIRED (test code = MDIFF) NO, ONLY SCAN NEEDED 04/08/18 0803DIFFERENTIAL [id number] 10:31:00* Test Item Value Reference Range Interpretation Comments STAIN ACCEPTABILITY (test code = STN ACCEPTABLE) CABOT RINGS (test code = CAB) MORPHOLOGY COMMENT (test code = MOC) PLATELET ESTIMATE (test code = PLTEST) PLATELET MORPHOLOGY (test code = PLTMORPH) 04/08/18 0803HGB [id number] 04:10:00* Test Item Value Reference Range Interpretation Comments HEMOGLOBIN (test code = HGB) 6.6 gram/dL 11.5-15.5 L HEMATOCRIT (test code = HCT) 21.9 % 36.0-46.0 L Results called to [id number] by ORACIO 04/08/18 0410Critical results verified and read back by Nurse? Y [id number] METABOLIC [id number] 16:10:00* Test Item Value Reference Range Interpretation Comments SODIUM (test code = NA) 138 mmol/L 136-145 N POTASSIUM (test code = K) 5.3 mmol/L 3.5-5.1 H CHLORIDE (test code = CL) 106.0 mmol/L 98-107 N CARBON DIOXIDE (test code = CO2) 26.0 mmol/L 21-32 N ANION GAP (test code = GAP) 11.3 10-20 N GLUCOSE (test code = GLU) 99 mg/dL 74-106 N BLOOD UREA NITROGEN (test code = BUN) 19 mg/dL 7-18 H GLOMERULAR FILTRATION RATE (test code = GFR) > 60 mL/min >=60 Estimated GFR by using Modified MDRD formula.Chronic kidney disease is defined as either kidney damageor GFR <60 mL/min/1.73 m2 for >3 months. CREATININE (test code = CREAT) 0.90 mg/dL 0.55-1.02 N Note change in reference range due to change in reagent. BUN/CREATININE RATIO (test code = BUN/CREA) 21.6 10-20 H CALCIUM (test code = CA) 8.1 mg/dL 8.5-10.1 L HEPATIC FUNCTION [id number] 16:10:00* Test Item Value Reference Range Interpretation Comments TOTAL PROTEIN (test code = PROT) 7.4 gram/dL 6.4-8.2 N ALBUMIN (test code = ALB) 1.8 g/dL 3.4-5.0 L GLOBULIN (test code = GLOB) 5.6 gram/dL 2.7-4.2 H ALBUMIN/GLOBULIN RATIO (test code = A/G) 0.3 0.75-1.50 L BILIRUBIN TOTAL (test code = BILT) 1.00 mg/dL 0.0-1.0 N BILIRUBIN DIRECT (test code = BILD) 0.36 mg/dL 0.0-0.20 H SGOT/AST (test code = AST) 43 IUnit/L 15-37 H SGPT/ALT (test code = ALT) 18 IUnit/L 12-78 N ALKALINE PHOSPHATASE TOTAL (test code = ALKP) 147 IUnit/L 45-117 H Note change in reference range due to change in reagent. [id number] 16:10:00* Test Item Value Reference Range Interpretation Comments TROPONIN-I (test code = TROPI) <0.015 ng/mL 0-0.045 N BASIC METABOLIC [id number] 15:55:00* Test Item Value Reference Range Interpretation Comments SODIUM (test code = NA) 138 mmol/L 136-145 N POTASSIUM (test code = K) 5.3 mmol/L 3.5-5.1 H CHLORIDE (test code = CL) 106.0 mmol/L 98-107 N CARBON DIOXIDE (test code = CO2) mmol/L 21-32 ANION GAP (test code = GAP) 10-20 GLUCOSE (test code = GLU) mg/dL 74-106 BLOOD UREA NITROGEN (test code = BUN) mg/dL 7-18 GLOMERULAR FILTRATION RATE (test code = GFR) mL/min >=60 CREATININE (test code = CREAT) mg/dL 0.55-1.02 BUN/CREATININE RATIO (test code = BUN/CREA) 10-20 CALCIUM (test code = CA) mg/dL 8.5-10.1 HEPATIC FUNCTION [id number] 15:55:00* Test Item Value Reference Range Interpretation Comments TOTAL PROTEIN (test code = PROT) gram/dL 6.4-8.2 ALBUMIN (test code = ALB) g/dL 3.4-5.0 GLOBULIN (test code = GLOB) gram/dL 2.7-4.2 ALBUMIN/GLOBULIN RATIO (test code = A/G) 0.75-1.50 BILIRUBIN TOTAL (test code = BILT) mg/dL 0.0-1.0 BILIRUBIN DIRECT (test code = BILD) mg/dL 0.0-0.20 SGOT/AST (test code = AST) IUnit/L 15-37 SGPT/ALT (test code = ALT) IUnit/L 12-78 ALKALINE PHOSPHATASE TOTAL (test code = ALKP) IUnit/L 45-117 [id number] 15:55:00* Test Item Value Reference Range Interpretation Comments TROPONIN-I (test code = TROPI) ng/mL 0-0.045 PROTHROMBIN [id number] 14:08:00* Test Item Value Reference Range Interpretation Comments PROTHROMBIN TIME PATIENT (test code = PTP) 12.2 seconds 9.0-14.0 N INTERNATIONAL NORMAL RATIO (test code = INR) 1.0 0.8-1.2 N The therapeutic range for oral anticoagulant therapy [...] (2.5-3.5) IS PATIENT ON ANTICOAGULANTS? NTHROMBOPLASTIN TIME [id number] 14:08:00* Test Item Value Reference Range Interpretation Comments THROMBOPLASTIN TIME PARTIAL (test code = PTT) 22.3 seconds 25.0-36. 5 L IS PATIENT ON ANTICOAGULANTS? NCBC W/O [id number] 14:00:00* Test Item Value Reference Range Interpretation Comments WHITE BLOOD CELL (test code = WBC) 3.1 K/mm3 4.5-12.5 L RED BLOOD CELL (test code = RBC) 2.09 mill/mm3 3.7-5.2 L HEMOGLOBIN (test code = HGB) 6.3 gram/dL 11.5-15.5 L RESULT VERIFIED BY REPEAT ANALYSIS HEMATOCRIT (test code = HCT) 20.5 % 36.0-46.0 LL Results called to [id number] by MATTIE 04/07/18 1359Critical results verified and read back by Nurse? Y MEAN CELL VOLUME (test code = MCV) 98.1 fL 80-98 H MEAN CELL HGB (test code = MCH) 30.1 picogram 27.0-33.0 N MEAN CELL HGB CONCETRATION (test code = MCHC) 30.7 gram/dL 33.0-36. 0 L RED CELL DISTRIBUTION WIDTH (test code = RDW) 16.9 % 11.6-16. 2 H PLATELET COUNT (test code = PLT) 96 K/mm3 150-450 L MEAN PLATELET VOLUME (test code = MPV) 11.4 fL 6.7-11.0 H - XR CHEST 1 [id number] 13:37:00 FAX: Drew Muñoz DO [place]: St: PRE Name: ALEX [facility]DRUM [facility] : 09/[birth year]/18 51 Age/S: 67/F [address] [facility] Unit #: [id number] Loc: [place] [address] Phys: Drew Muñoz DO Acct: [id number] Dis Date: Status: PRE ER PHONE #: [phone] Exam Date: 04/07/2018 1326 FAX #: [phone] Reason: CHEST PAIN EXAMS: CPT CODE: [id number] XR CHEST 1 V 14544 HISTORY: Chest pain. COMPARISON: March 22, 2018. No acute infiltrates, effusion or c ongestion is noted. Suboptimal inspiration. Dependent changes. Cardiomegaly. IMPRESSION: No acute infi ltrates, effusion or congestion. at 1337 Reported and signed by: Stuart Elias M.D. CC: Drew Muñoz DO Technologist: Inder Olmstead RT(R) Trnscrd Date/Time/By: 04/07/2018 (5330) : By: [email or web address] Orig Print D/T: S: 04/07/2018 (0434) PAGE 1 Signed Report SERUM [id number] 13:16:00* Test Item Value Reference Range Interpretation Comments SERUM IRON (test code = IRON) 43 ug/dL 50-175 L VITAMIN [id number] 13:16:00* Test Item Value Reference Range Interpretation Comments VITAMIN B12 (test code = VITB12) 1015 pg/mL 193-986 H FOLIC [id number] 13:16:00* Test Item Value Reference Range Interpretation Comments FOLIC ACID (test code = FOL) 6.4 ng/mL 3.10-17.50 N [id number] 13:16:00* Test Item Value Reference Range Interpretation Comments FERRITIN (test code = NGUYỄN) 16 ng/mL 8-388 N VITAMIN D 1,59-[id number] 13:16:00* Test Item Value Reference Range Interpretation Comments VITAMIN D 1,25-DIHYDROXY (test code = HEYH579) 22.9 pg/mL 19.9-79 .3 Performed At: [facility] [id number] Sanjai MD Ph:[id number] performed at: [facility] [address] [place] [address] [id number] 16:18:00* Test Item Value Reference Range Interpretation Comments GLUBED (test code = GLUBED) 124 mg/dL 74-106 H Performed by certified collar turner operator at [facility] CBC W/AUTO [id number] 13:35:00* Test Item Value Reference Range Interpretation Comments WHITE BLOOD CELL (test code = WBC) 2.2 K/mm3 4.5-12.5 L RED BLOOD CELL (test code = RBC) 2.97 mill/mm3 3.7-5.2 L HEMOGLOBIN (test code = HGB) 8.6 gram/dL 11.5-15.5 L HEMATOCRIT (test code = HCT) 29.5 % 36.0-46.0 L MEAN CELL VOLUME (test code = MCV) 99.3 fL 80-98 H MEAN CELL HGB (test code = MCH) 29.0 picogram 27.0-33.0 N MEAN CELL HGB CONCETRATION (test code = MCHC) 29.2 gram/dL 33.0-36. 0 L RED CELL DISTRIBUTION WIDTH (test code = RDW) 17.9 % 11.6-16. 2 H RED CELL DISTRIBUTION WIDTH SD (test code = RDW-SD) 64.3 fL 37 .0-51.0 H PLATELET COUNT (test code = PLT) 81 K/mm3 150-450 L MEAN PLATELET VOLUME (test code = MPV) 11.7 fL 6.7-11.0 H NEUTROPHIL % (test code = NT%) 53.6 % 39.0-69.0 N IMMATURE GRANULOCYTE % (test code = IG%) 0.9 % 0.0-5.0 N LYMPHOCYTE % (test code = LY%) 27.9 % 25.0-55.0 N MONOCYTE % (test code = MO%) 16.7 % 0.0-10.0 H EOSINOPHIL % (test code = EO%) 0.0 % 0.0-5.0 N BASOPHIL % (test code = BA%) 0.9 % 0.0-1.0 N NUCLEATED RBC % (test code = NRBC%) 0.0 % 0-0 N NEUTROPHIL # (test code = NT#) 1.19 K/mm3 1.8-7.7 L IMMATURE GRANULOCYTE # (test code = IG#) 0.02 x10 3/uL 0-0.03 N LYMPHOCYTE # (test code = LY#) 0.62 K/mm3 1.0-5.0 L MONOCYTE # (test code = MO#) 0.37 K/mm3 0-0.8 N EOSINOPHIL # (test code = EO#) 0.00 K/mm3 0.0-0.5 N BASOPHIL # (test code = BA#) 0.02 K/mm3 0.0-0.2 N NUCLEATED RBC # (test code = NRBC#) 0.00 K/mm3 0.0-0.1 N MANUAL DIFF REQUIRED (test code = MDIFF) NO, ONLY SCAN NEEDED DIFFERENTIAL [id number] 13:35:00* Test Item Value Reference Range Interpretation Comments STAIN ACCEPTABILITY (test code = STN ACCEPTABLE) STAIN ACCEPTABLE POLYCHROMASIA (test code = POLC) 1+ HYPOCHROMIA (test code = HYPO) 1+ ANISOCYTOSIS (test code = ANISO) 1+ PLATELET ESTIMATE (test code = PLTEST) DECREASED PLATELET MORPHOLOGY (test code = PLTMORPH) NORMAL CBC W/AUTO [id number] 12:40:00* Test Item Value Reference Range Interpretation Comments WHITE BLOOD CELL (test code = WBC) 2.2 K/mm3 4.5-12.5 L RED BLOOD CELL (test code = RBC) 2.97 mill/mm3 3.7-5.2 L HEMOGLOBIN (test code = HGB) 8.6 gram/dL 11.5-15.5 L HEMATOCRIT (test code = HCT) 29.5 % 36.0-46.0 L MEAN CELL VOLUME (test code = MCV) 99.3 fL 80-98 H MEAN CELL HGB (test code = MCH) 29.0 picogram 27.0-33.0 N MEAN CELL HGB CONCETRATION (test code = MCHC) 29.2 gram/dL 33.0-36. 0 L RED CELL DISTRIBUTION WIDTH (test code = RDW) 17.9 % 11.6-16. 2 H RED CELL DISTRIBUTION WIDTH SD (test code = RDW-SD) 64.3 fL 37 .0-51.0 H PLATELET COUNT (test code = PLT) 81 K/mm3 150-450 L MEAN PLATELET VOLUME (test code = MPV) 11.7 fL 6.7-11.0 H NEUTROPHIL % (test code = NT%) 53.6 % 39.0-69.0 N IMMATURE GRANULOCYTE % (test code = IG%) 0.9 % 0.0-5.0 N LYMPHOCYTE % (test code = LY%) 27.9 % 25.0-55.0 N MONOCYTE % (test code = MO%) 16.7 % 0.0-10.0 H EOSINOPHIL % (test code = EO%) 0.0 % 0.0-5.0 N BASOPHIL % (test code = BA%) 0.9 % 0.0-1.0 N NUCLEATED RBC % (test code = NRBC%) 0.0 % 0-0 N NEUTROPHIL # (test code = NT#) 1.19 K/mm3 1.8-7.7 L IMMATURE GRANULOCYTE # (test code = IG#) 0.02 x10 3/uL 0-0.03 N LYMPHOCYTE # (test code = LY#) 0.62 K/mm3 1.0-5.0 L MONOCYTE # (test code = MO#) 0.37 K/mm3 0-0.8 N EOSINOPHIL # (test code = EO#) 0.00 K/mm3 0.0-0.5 N BASOPHIL # (test code = BA#) 0.02 K/mm3 0.0-0.2 N NUCLEATED RBC # (test code = NRBC#) 0.00 K/mm3 0.0-0.1 N MANUAL DIFF REQUIRED (test code = MDIFF) NO, ONLY SCAN NEEDED DIFFERENTIAL [id number] 12:40:00* Test Item Value Reference Range Interpretation Comments STAIN ACCEPTABILITY (test code = STN ACCEPTABLE) CABOT RINGS (test code = CAB) MORPHOLOGY COMMENT (test code = MOC) PLATELET ESTIMATE (test code = PLTEST) PLATELET MORPHOLOGY (test code = PLTMORPH) CBC W/AUTO [id number] 12:40:00* Test Item Value Reference Range Interpretation Comments WHITE BLOOD CELL (test code = WBC) 2.2 K/mm3 4.5-12.5 L RED BLOOD CELL (test code = RBC) 2.97 mill/mm3 3.7-5.2 L HEMOGLOBIN (test code = HGB) 8.6 gram/dL 11.5-15.5 L HEMATOCRIT (test code = HCT) 29.5 % 36.0-46.0 L MEAN CELL VOLUME (test code = MCV) 99.3 fL 80-98 H MEAN CELL HGB (test code = MCH) 29.0 picogram 27.0-33.0 N MEAN CELL HGB CONCETRATION (test code = MCHC) 29.2 gram/dL 33.0-36. 0 L RED CELL DISTRIBUTION WIDTH (test code = RDW) 17.9 % 11.6-16. 2 H RED CELL DISTRIBUTION WIDTH SD (test code = RDW-SD) 64.3 fL 37 .0-51.0 H PLATELET COUNT (test code = PLT) 81 K/mm3 150-450 L MEAN PLATELET VOLUME (test code = MPV) 11.7 fL 6.7-11.0 H NEUTROPHIL % (test code = NT%) 53.6 % 39.0-69.0 N IMMATURE GRANULOCYTE % (test code = IG%) 0.9 % 0.0-5.0 N LYMPHOCYTE % (test code = LY%) 27.9 % 25.0-55.0 N MONOCYTE % (test code = MO%) 16.7 % 0.0-10.0 H EOSINOPHIL % (test code = EO%) 0.0 % 0.0-5.0 N BASOPHIL % (test code = BA%) 0.9 % 0.0-1.0 N NUCLEATED RBC % (test code = NRBC%) 0.0 % 0-0 N NEUTROPHIL # (test code = NT#) 1.19 K/mm3 1.8-7.7 L IMMATURE GRANULOCYTE # (test code = IG#) 0.02 x10 3/uL 0-0.03 N LYMPHOCYTE # (test code = LY#) 0.62 K/mm3 1.0-5.0 L MONOCYTE # (test code = MO#) 0.37 K/mm3 0-0.8 N EOSINOPHIL # (test code = EO#) 0.00 K/mm3 0.0-0.5 N BASOPHIL # (test code = BA#) 0.02 K/mm3 0.0-0.2 N NUCLEATED RBC # (test code = NRBC#) 0.00 K/mm3 0.0-0.1 N MANUAL DIFF REQUIRED (test code = MDIFF) NO, ONLY SCAN NEEDED DIFFERENTIAL [id number] 12:40:00* Test Item Value Reference Range Interpretation Comments STAIN ACCEPTABILITY (test code = STN ACCEPTABLE) CABOT RINGS (test code = CAB) MORPHOLOGY COMMENT (test code = MOC) PLATELET ESTIMATE (test code = PLTEST) PLATELET MORPHOLOGY (test code = PLTMORPH) CBC W/AUTO [id number] 12:40:00* Test Item Value Reference Range Interpretation Comments WHITE BLOOD CELL (test code = WBC) 2.2 K/mm3 4.5-12.5 L RED BLOOD CELL (test code = RBC) 2.97 mill/mm3 3.7-5.2 L HEMOGLOBIN (test code = HGB) 8.6 gram/dL 11.5-15.5 L HEMATOCRIT (test code = HCT) 29.5 % 36.0-46.0 L MEAN CELL VOLUME (test code = MCV) 99.3 fL 80-98 H MEAN CELL HGB (test code = MCH) 29.0 picogram 27.0-33.0 N MEAN CELL HGB CONCETRATION (test code = MCHC) 29.2 gram/dL 33.0-36. 0 L RED CELL DISTRIBUTION WIDTH (test code = RDW) 17.9 % 11.6-16. 2 H RED CELL DISTRIBUTION WIDTH SD (test code = RDW-SD) 64.3 fL 37 .0-51.0 H PLATELET COUNT (test code = PLT) 81 K/mm3 150-450 L MEAN PLATELET VOLUME (test code = MPV) 11.7 fL 6.7-11.0 H NEUTROPHIL % (test code = NT%) 53.6 % 39.0-69.0 N IMMATURE GRANULOCYTE % (test code = IG%) 0.9 % 0.0-5.0 N LYMPHOCYTE % (test code = LY%) 27.9 % 25.0-55.0 N MONOCYTE % (test code = MO%) 16.7 % 0.0-10.0 H EOSINOPHIL % (test code = EO%) 0.0 % 0.0-5.0 N BASOPHIL % (test code = BA%) 0.9 % 0.0-1.0 N NUCLEATED RBC % (test code = NRBC%) 0.0 % 0-0 N NEUTROPHIL # (test code = NT#) 1.19 K/mm3 1.8-7.7 L IMMATURE GRANULOCYTE # (test code = IG#) 0.02 x10 3/uL 0-0.03 N LYMPHOCYTE # (test code = LY#) 0.62 K/mm3 1.0-5.0 L MONOCYTE # (test code = MO#) 0.37 K/mm3 0-0.8 N EOSINOPHIL # (test code = EO#) 0.00 K/mm3 0.0-0.5 N BASOPHIL # (test code = BA#) 0.02 K/mm3 0.0-0.2 N NUCLEATED RBC # (test code = NRBC#) 0.00 K/mm3 0.0-0.1 N MANUAL DIFF REQUIRED (test code = MDIFF) NO, ONLY SCAN NEEDED DIFFERENTIAL [id number] 12:40:00* Test Item Value Reference Range Interpretation Comments STAIN ACCEPTABILITY (test code = STN ACCEPTABLE) MORPHOLOGY COMMENT (test code = MOC) PLATELET ESTIMATE (test code = PLTEST) PLATELET MORPHOLOGY (test code = PLTMORPH) CBC W/AUTO [id number] 12:40:00* Test Item Value Reference Range Interpretation Comments WHITE BLOOD CELL (test code = WBC) 2.2 K/mm3 4.5-12.5 L RED BLOOD CELL (test code = RBC) 2.97 mill/mm3 3.7-5.2 L HEMOGLOBIN (test code = HGB) 8.6 gram/dL 11.5-15.5 L HEMATOCRIT (test code = HCT) 29.5 % 36.0-46.0 L MEAN CELL VOLUME (test code = MCV) 99.3 fL 80-98 H MEAN CELL HGB (test code = MCH) 29.0 picogram 27.0-33.0 N MEAN CELL HGB CONCETRATION (test code = MCHC) 29.2 gram/dL 33.0-36. 0 L RED CELL DISTRIBUTION WIDTH (test code = RDW) 17.9 % 11.6-16. 2 H RED CELL DISTRIBUTION WIDTH SD (test code = RDW-SD) 64.3 fL 37 .0-51.0 H PLATELET COUNT (test code = PLT) 81 K/mm3 150-450 L MEAN PLATELET VOLUME (test code = MPV) 11.7 fL 6.7-11.0 H NEUTROPHIL % (test code = NT%) 53.6 % 39.0-69.0 N IMMATURE GRANULOCYTE % (test code = IG%) 0.9 % 0.0-5.0 N LYMPHOCYTE % (test code = LY%) 27.9 % 25.0-55.0 N MONOCYTE % (test code = MO%) 16.7 % 0.0-10.0 H EOSINOPHIL % (test code = EO%) 0.0 % 0.0-5.0 N BASOPHIL % (test code = BA%) 0.9 % 0.0-1.0 N NUCLEATED RBC % (test code = NRBC%) 0.0 % 0-0 N NEUTROPHIL # (test code = NT#) 1.19 K/mm3 1.8-7.7 L IMMATURE GRANULOCYTE # (test code = IG#) 0.02 x10 3/uL 0-0.03 N LYMPHOCYTE # (test code = LY#) 0.62 K/mm3 1.0-5.0 L MONOCYTE # (test code = MO#) 0.37 K/mm3 0-0.8 N EOSINOPHIL # (test code = EO#) 0.00 K/mm3 0.0-0.5 N BASOPHIL # (test code = BA#) 0.02 K/mm3 0.0-0.2 N NUCLEATED RBC # (test code = NRBC#) 0.00 K/mm3 0.0-0.1 N MANUAL DIFF REQUIRED (test code = MDIFF) NO, ONLY SCAN NEEDED DIFFERENTIAL [id number] 12:40:00* Test Item Value Reference Range Interpretation Comments STAIN ACCEPTABILITY (test code = STN ACCEPTABLE) CABOT RINGS (test code = CAB) MORPHOLOGY COMMENT (test code = MOC) PLATELET ESTIMATE (test code = PLTEST) PLATELET MORPHOLOGY (test code = PLTMORPH) [id number] 08:33:00* Test Item Value Reference Range Interpretation Comments GLUBED (test code = GLUBED) 95 mg/dL 74-106 N Performed by certified collar turner operator at [facility] [id number] 22:18:00* Test Item Value Reference Range Interpretation Comments GLUBED (test code = GLUBED) 139 mg/dL 74-106 H Performed by certified collar turner operator at [facility] [id number] 16:49:00* Test Item Value Reference Range Interpretation Comments GLUBED (test code = GLUBED) 129 mg/dL 74-106 H Performed by certified collar turner operator at [facility] [id number] 09:41:00* Test Item Value Reference Range Interpretation Comments GLUBED (test code = GLUBED) 80 mg/dL 74-106 N Performed by certified collar turner operator at [facility] [id number] 19:59:00* Test Item Value Reference Range Interpretation Comments GLUBED (test code = GLUBED) 164 mg/dL 74-106 H Performed by certified collar turner operator at [facility] [id number] 17:25:00* Test Item Value Reference Range Interpretation Comments GLUBED (test code = GLUBED) 105 mg/dL 74-106 N Performed by certified collar turner operator at [facility] [id number] 11:59:00* Test Item Value Reference Range Interpretation Comments GLUBED (test code = GLUBED) 96 mg/dL 74-106 N Performed by certified collar turner operator at [facility] HGB [id number] 10:31:00* Test Item Value Reference Range Interpretation Comments HEMOGLOBIN (test code = HGB) 8.3 gram/dL 11.5-15.5 L HEMATOCRIT (test code = HCT) 28.0 % 36.0-46.0 L [id number] 20:22:00* Test Item Value Reference Range Interpretation Comments GLUBED (test code = GLUBED) 87 mg/dL 74-106 N Performed by certified collar turner operator at [facility] [id number] 16:01:00* Test Item Value Reference Range Interpretation Comments GLUBED (test code = GLUBED) 103 mg/dL 74-106 N Performed by certified collar turner operator at [facility] [id number] 13:48:00* Test Item Value Reference Range Interpretation Comments GLUBED (test code = GLUBED) 90 mg/dL 74-106 N Performed by certified collar turner operator at [facility] CBC W/AUTO [id number] 13:36:00* Test Item Value Reference Range Interpretation Comments WHITE BLOOD CELL (test code = WBC) 2.5 K/mm3 4.5-12.5 L RED BLOOD CELL (test code = RBC) 2.26 mill/mm3 3.7-5.2 L HEMOGLOBIN (test code = HGB) 6.7 gram/dL 11.5-15.5 L HEMATOCRIT (test code = HCT) 21.9 % 36.0-46.0 L RESULT VERIFIED BY REPEAT ANALYSISCritical results verified and read back by Nurse? Y MEAN CELL VOLUME (test code = MCV) 96.9 fL 80-98 N MEAN CELL HGB (test code = MCH) 29.6 picogram 27.0-33.0 N MEAN CELL HGB CONCETRATION (test code = MCHC) 30.6 gram/dL 33.0-36. 0 L RED CELL DISTRIBUTION WIDTH (test code = RDW) 19.7 % 11.6-16. 2 H RED CELL DISTRIBUTION WIDTH SD (test code = RDW-SD) 70.1 fL 37 .0-51.0 H PLATELET COUNT (test code = PLT) 67 K/mm3 150-450 L MEAN PLATELET VOLUME (test code = MPV) 11.1 fL 6.7-11.0 H NEUTROPHIL % (test code = NT%) 61.3 % 39.0-69.0 N IMMATURE GRANULOCYTE % (test code = IG%) 0.0 % 0.0-5.0 N LYMPHOCYTE % (test code = LY%) 25.8 % 25.0-55.0 N MONOCYTE % (test code = MO%) 12.1 % 0.0-10.0 H EOSINOPHIL % (test code = EO%) 0.0 % 0.0-5.0 N BASOPHIL % (test code = BA%) 0.8 % 0.0-1.0 N NUCLEATED RBC % (test code = NRBC%) 0.0 % 0-0 N NEUTROPHIL # (test code = NT#) 1.52 K/mm3 1.8-7.7 L IMMATURE GRANULOCYTE # (test code = IG#) 0.00 x10 3/uL 0-0.03 N LYMPHOCYTE # (test code = LY#) 0.64 K/mm3 1.0-5.0 L MONOCYTE # (test code = MO#) 0.30 K/mm3 0-0.8 N EOSINOPHIL # (test code = EO#) 0.00 K/mm3 0.0-0.5 N BASOPHIL # (test code = BA#) 0.02 K/mm3 0.0-0.2 N NUCLEATED RBC # (test code = NRBC#) 0.00 K/mm3 0.0-0.1 N MANUAL DIFF REQUIRED (test code = MDIFF) NO, ONLY SCAN NEEDED DIFFERENTIAL [id number] 13:36:00* Test Item Value Reference Range Interpretation Comments STAIN ACCEPTABILITY (test code = STN ACCEPTABLE) STAIN ACCEPTABLE HYPOCHROMIA (test code = HYPO) 1+ ANISOCYTOSIS (test code = ANISO) 1+ PLATELET ESTIMATE (test code = PLTEST) DECREASED PLATELET MORPHOLOGY (test code = PLTMORPH) APPEAR LARGE SERUM [id number] 12:16:00* Test Item Value Reference Range Interpretation Comments SERUM IRON (test code = IRON) 43 ug/dL 50-175 L VITAMIN [id number] 12:16:00* Test Item Value Reference Range Interpretation Comments VITAMIN B12 (test code = VITB12) 1015 pg/mL 193-986 H FOLIC [id number] 12:16:00* Test Item Value Reference Range Interpretation Comments FOLIC ACID (test code = FOL) 6.4 ng/mL 3.10-17.50 N [id number] 12:16:00* Test Item Value Reference Range Interpretation Comments FERRITIN (test code = NGUYỄN) 16 ng/mL 8-388 N VITAMIN D 1,15-[id number] 12:16:00* Test Item Value Reference Range Interpretation Comments VITAMIN D 1,25-DIHYDROXY (test code = XTGN833) pgram/mL CBC W/AUTO [id number] 11:52:00* Test Item Value Reference Range Interpretation Comments WHITE BLOOD CELL (test code = WBC) 2.5 K/mm3 4.5-12.5 L RED BLOOD CELL (test code = RBC) 2.26 mill/mm3 3.7-5.2 L HEMOGLOBIN (test code = HGB) 6.7 gram/dL 11.5-15.5 L HEMATOCRIT (test code = HCT) 21.9 % 36.0-46.0 L RESULT VERIFIED BY REPEAT ANALYSISCritical results verified and read back by Nurse? Y MEAN CELL VOLUME (test code = MCV) 96.9 fL 80-98 N MEAN CELL HGB (test code = MCH) 29.6 picogram 27.0-33.0 N MEAN CELL HGB CONCETRATION (test code = MCHC) 30.6 gram/dL 33.0-36. 0 L RED CELL DISTRIBUTION WIDTH (test code = RDW) 19.7 % 11.6-16. 2 H RED CELL DISTRIBUTION WIDTH SD (test code = RDW-SD) 70.1 fL 37 .0-51.0 H PLATELET COUNT (test code = PLT) 67 K/mm3 150-450 L MEAN PLATELET VOLUME (test code = MPV) 11.1 fL 6.7-11.0 H NEUTROPHIL % (test code = NT%) 61.3 % 39.0-69.0 N IMMATURE GRANULOCYTE % (test code = IG%) 0.0 % 0.0-5.0 N LYMPHOCYTE % (test code = LY%) 25.8 % 25.0-55.0 N MONOCYTE % (test code = MO%) 12.1 % 0.0-10.0 H EOSINOPHIL % (test code = EO%) 0.0 % 0.0-5.0 N BASOPHIL % (test code = BA%) 0.8 % 0.0-1.0 N NUCLEATED RBC % (test code = NRBC%) 0.0 % 0-0 N NEUTROPHIL # (test code = NT#) 1.52 K/mm3 1.8-7.7 L IMMATURE GRANULOCYTE # (test code = IG#) 0.00 x10 3/uL 0-0.03 N LYMPHOCYTE # (test code = LY#) 0.64 K/mm3 1.0-5.0 L MONOCYTE # (test code = MO#) 0.30 K/mm3 0-0.8 N EOSINOPHIL # (test code = EO#) 0.00 K/mm3 0.0-0.5 N BASOPHIL # (test code = BA#) 0.02 K/mm3 0.0-0.2 N NUCLEATED RBC # (test code = NRBC#) 0.00 K/mm3 0.0-0.1 N MANUAL DIFF REQUIRED (test code = MDIFF) NO, ONLY SCAN NEEDED DIFFERENTIAL [id number] 11:52:00* Test Item Value Reference Range Interpretation Comments STAIN ACCEPTABILITY (test code = STN ACCEPTABLE) MORPHOLOGY COMMENT (test code = MOC) PLATELET ESTIMATE (test code = PLTEST) PLATELET MORPHOLOGY (test code = PLTMORPH) CBC W/AUTO [id number] 11:49:00* Test Item Value Reference Range Interpretation Comments WHITE BLOOD CELL (test code = WBC) 2.5 K/mm3 4.5-12.5 L RED BLOOD CELL (test code = RBC) 2.26 mill/mm3 3.7-5.2 L HEMOGLOBIN (test code = HGB) 6.7 gram/dL 11.5-15.5 L HEMATOCRIT (test code = HCT) 21.9 % 36.0-46.0 L RESULT VERIFIED BY REPEAT ANALYSISCritical results verified and read back by Nurse? Y MEAN CELL VOLUME (test code = MCV) 96.9 fL 80-98 N MEAN CELL HGB (test code = MCH) 29.6 picogram 27.0-33.0 N MEAN CELL HGB CONCETRATION (test code = MCHC) 30.6 gram/dL 33.0-36. 0 L RED CELL DISTRIBUTION WIDTH (test code = RDW) 19.7 % 11.6-16. 2 H RED CELL DISTRIBUTION WIDTH SD (test code = RDW-SD) 70.1 fL 37 .0-51.0 H PLATELET COUNT (test code = PLT) 67 K/mm3 150-450 L MEAN PLATELET VOLUME (test code = MPV) 11.1 fL 6.7-11.0 H NEUTROPHIL % (test code = NT%) 61.3 % 39.0-69.0 N IMMATURE GRANULOCYTE % (test code = IG%) 0.0 % 0.0-5.0 N LYMPHOCYTE % (test code = LY%) 25.8 % 25.0-55.0 N MONOCYTE % (test code = MO%) 12.1 % 0.0-10.0 H EOSINOPHIL % (test code = EO%) 0.0 % 0.0-5.0 N BASOPHIL % (test code = BA%) 0.8 % 0.0-1.0 N NUCLEATED RBC % (test code = NRBC%) 0.0 % 0-0 N NEUTROPHIL # (test code = NT#) 1.52 K/mm3 1.8-7.7 L IMMATURE GRANULOCYTE # (test code = IG#) 0.00 x10 3/uL 0-0.03 N LYMPHOCYTE # (test code = LY#) 0.64 K/mm3 1.0-5.0 L MONOCYTE # (test code = MO#) 0.30 K/mm3 0-0.8 N EOSINOPHIL # (test code = EO#) 0.00 K/mm3 0.0-0.5 N BASOPHIL # (test code = BA#) 0.02 K/mm3 0.0-0.2 N NUCLEATED RBC # (test code = NRBC#) 0.00 K/mm3 0.0-0.1 N MANUAL DIFF REQUIRED (test code = MDIFF) NO, ONLY SCAN NEEDED DIFFERENTIAL [id number] 11:49:00* Test Item Value Reference Range Interpretation Comments STAIN ACCEPTABILITY (test code = STN ACCEPTABLE) CABOT RINGS (test code = CAB) MORPHOLOGY COMMENT (test code = MOC) PLATELET ESTIMATE (test code = PLTEST) PLATELET MORPHOLOGY (test code = PLTMORPH) CBC W/AUTO [id number] 11:49:00* Test Item Value Reference Range Interpretation Comments WHITE BLOOD CELL (test code = WBC) 2.5 K/mm3 4.5-12.5 L RED BLOOD CELL (test code = RBC) 2.26 mill/mm3 3.7-5.2 L HEMOGLOBIN (test code = HGB) 6.7 gram/dL 11.5-15.5 L HEMATOCRIT (test code = HCT) 21.9 % 36.0-46.0 L RESULT VERIFIED BY REPEAT ANALYSISCritical results verified and read back by Nurse? Y MEAN CELL VOLUME (test code = MCV) 96.9 fL 80-98 N MEAN CELL HGB (test code = MCH) 29.6 picogram 27.0-33.0 N MEAN CELL HGB CONCETRATION (test code = MCHC) 30.6 gram/dL 33.0-36. 0 L RED CELL DISTRIBUTION WIDTH (test code = RDW) 19.7 % 11.6-16. 2 H RED CELL DISTRIBUTION WIDTH SD (test code = RDW-SD) 70.1 fL 37 .0-51.0 H PLATELET COUNT (test code = PLT) 67 K/mm3 150-450 L MEAN PLATELET VOLUME (test code = MPV) 11.1 fL 6.7-11.0 H NEUTROPHIL % (test code = NT%) 61.3 % 39.0-69.0 N IMMATURE GRANULOCYTE % (test code = IG%) 0.0 % 0.0-5.0 N LYMPHOCYTE % (test code = LY%) 25.8 % 25.0-55.0 N MONOCYTE % (test code = MO%) 12.1 % 0.0-10.0 H EOSINOPHIL % (test code = EO%) 0.0 % 0.0-5.0 N BASOPHIL % (test code = BA%) 0.8 % 0.0-1.0 N NUCLEATED RBC % (test code = NRBC%) 0.0 % 0-0 N NEUTROPHIL # (test code = NT#) 1.52 K/mm3 1.8-7.7 L IMMATURE GRANULOCYTE # (test code = IG#) 0.00 x10 3/uL 0-0.03 N LYMPHOCYTE # (test code = LY#) 0.64 K/mm3 1.0-5.0 L MONOCYTE # (test code = MO#) 0.30 K/mm3 0-0.8 N EOSINOPHIL # (test code = EO#) 0.00 K/mm3 0.0-0.5 N BASOPHIL # (test code = BA#) 0.02 K/mm3 0.0-0.2 N NUCLEATED RBC # (test code = NRBC#) 0.00 K/mm3 0.0-0.1 N MANUAL DIFF REQUIRED (test code = MDIFF) NO, ONLY SCAN NEEDED DIFFERENTIAL [id number] 11:49:00* Test Item Value Reference Range Interpretation Comments STAIN ACCEPTABILITY (test code = STN ACCEPTABLE) MORPHOLOGY COMMENT (test code = MOC) PLATELET ESTIMATE (test code = PLTEST) PLATELET MORPHOLOGY (test code = PLTMORPH) CBC W/AUTO [id number] 11:49:00* Test Item Value Reference Range Interpretation Comments WHITE BLOOD CELL (test code = WBC) 2.5 K/mm3 4.5-12.5 L RED BLOOD CELL (test code = RBC) 2.26 mill/mm3 3.7-5.2 L HEMOGLOBIN (test code = HGB) 6.7 gram/dL 11.5-15.5 L HEMATOCRIT (test code = HCT) 21.9 % 36.0-46.0 L RESULT VERIFIED BY REPEAT ANALYSISCritical results verified and read back by Nurse? Y MEAN CELL VOLUME (test code = MCV) 96.9 fL 80-98 N MEAN CELL HGB (test code = MCH) 29.6 picogram 27.0-33.0 N MEAN CELL HGB CONCETRATION (test code = MCHC) 30.6 gram/dL 33.0-36. 0 L RED CELL DISTRIBUTION WIDTH (test code = RDW) 19.7 % 11.6-16. 2 H RED CELL DISTRIBUTION WIDTH SD (test code = RDW-SD) 70.1 fL 37 .0-51.0 H PLATELET COUNT (test code = PLT) 67 K/mm3 150-450 L MEAN PLATELET VOLUME (test code = MPV) 11.1 fL 6.7-11.0 H NEUTROPHIL % (test code = NT%) 61.3 % 39.0-69.0 N IMMATURE GRANULOCYTE % (test code = IG%) 0.0 % 0.0-5.0 N LYMPHOCYTE % (test code = LY%) 25.8 % 25.0-55.0 N MONOCYTE % (test code = MO%) 12.1 % 0.0-10.0 H EOSINOPHIL % (test code = EO%) 0.0 % 0.0-5.0 N BASOPHIL % (test code = BA%) 0.8 % 0.0-1.0 N NUCLEATED RBC % (test code = NRBC%) 0.0 % 0-0 N NEUTROPHIL # (test code = NT#) 1.52 K/mm3 1.8-7.7 L IMMATURE GRANULOCYTE # (test code = IG#) 0.00 x10 3/uL 0-0.03 N LYMPHOCYTE # (test code = LY#) 0.64 K/mm3 1.0-5.0 L MONOCYTE # (test code = MO#) 0.30 K/mm3 0-0.8 N EOSINOPHIL # (test code = EO#) 0.00 K/mm3 0.0-0.5 N BASOPHIL # (test code = BA#) 0.02 K/mm3 0.0-0.2 N NUCLEATED RBC # (test code = NRBC#) 0.00 K/mm3 0.0-0.1 N MANUAL DIFF REQUIRED (test code = MDIFF) NO, ONLY SCAN NEEDED DIFFERENTIAL [id number] 11:49:00* Test Item Value Reference Range Interpretation Comments STAIN ACCEPTABILITY (test code = STN ACCEPTABLE) CABOT RINGS (test code = CAB) MORPHOLOGY COMMENT (test code = MOC) PLATELET ESTIMATE (test code = PLTEST) PLATELET MORPHOLOGY (test code = PLTMORPH) [id number] 08:28:00* Test Item Value Reference Range Interpretation Comments GLUBED (test code = GLUBED) 91 mg/dL 74-106 N Performed by certified collar turner operator at [facility] [id number] 22:08:00* Test Item Value Reference Range Interpretation Comments GLUBED (test code = GLUBED) 118 mg/dL 74-106 H Performed by certified collar turner operator at [facility] [id number] 16:55:00* Test Item Value Reference Range Interpretation Comments GLUBED (test code = GLUBED) 86 mg/dL 74-106 N Performed by certified collar turner operator at [facility] HGB [id number] 16:01:00* Test Item Value Reference Range Interpretation Comments HEMOGLOBIN (test code = HGB) 7.1 gram/dL 11.5-15.5 L HEMATOCRIT (test code = HCT) 24.6 % 36.0-46.0 L [id number] 15:01:00* Test Item Value Reference Range Interpretation Comments GLUBED (test code = GLUBED) 95 mg/dL 74-106 N Performed by certified collar turner operator at [facility] [id number] 12:45:00* Test Item Value Reference Range Interpretation Comments GLUBED (test code = GLUBED) 61 mg/dL 74-106 L Performed by certified collar turner operator at [facility] CBC W/AUTO [id number] 10:17:00* Test Item Value Reference Range Interpretation Comments WHITE BLOOD CELL (test code = WBC) 2.5 K/mm3 4.5-12.5 L RED BLOOD CELL (test code = RBC) 2.13 mill/mm3 3.7-5.2 L HEMOGLOBIN (test code = HGB) 6.2 gram/dL 11.5-15.5 L HEMATOCRIT (test code = HCT) 21.2 % 36.0-46.0 LL Results called to [id number] by TERESSA 03/23/18 1016Critical results verified and read back by Nurse? Y MEAN CELL VOLUME (test code = MCV) 99.5 fL 80-98 H MEAN CELL HGB (test code = MCH) 29.1 picogram 27.0-33.0 N MEAN CELL HGB CONCETRATION (test code = MCHC) 29.2 gram/dL 33.0-36. 0 L RED CELL DISTRIBUTION WIDTH (test code = RDW) 20.8 % 11.6-16. 2 H RED CELL DISTRIBUTION WIDTH SD (test code = RDW-SD) 74.3 fL 37 .0-51.0 H PLATELET COUNT (test code = PLT) 69 K/mm3 150-450 L MEAN PLATELET VOLUME (test code = MPV) 11.2 fL 6.7-11.0 H NEUTROPHIL % (test code = NT%) 62.1 % 39.0-69.0 N IMMATURE GRANULOCYTE % (test code = IG%) 0.4 % 0.0-5.0 N LYMPHOCYTE % (test code = LY%) 24.7 % 25.0-55.0 L MONOCYTE % (test code = MO%) 12.0 % 0.0-10.0 H EOSINOPHIL % (test code = EO%) 0.0 % 0.0-5.0 N BASOPHIL % (test code = BA%) 0.8 % 0.0-1.0 N NUCLEATED RBC % (test code = NRBC%) 0.0 % 0-0 N NEUTROPHIL # (test code = NT#) 1.56 K/mm3 1.8-7.7 L IMMATURE GRANULOCYTE # (test code = IG#) 0.01 x10 3/uL 0-0.03 N LYMPHOCYTE # (test code = LY#) 0.62 K/mm3 1.0-5.0 L MONOCYTE # (test code = MO#) 0.30 K/mm3 0-0.8 N EOSINOPHIL # (test code = EO#) 0.00 K/mm3 0.0-0.5 N BASOPHIL # (test code = BA#) 0.02 K/mm3 0.0-0.2 N NUCLEATED RBC # (test code = NRBC#) 0.00 K/mm3 0.0-0.1 N MANUAL DIFF REQUIRED (test code = MDIFF) NO HGB [id number] 05:48:00* Test Item Value Reference Range Interpretation Comments HEMOGLOBIN (test code = HGB) 6.5 gram/dL 11.5-15.5 L HEMATOCRIT (test code = HCT) 21.7 % 36.0-46.0 LL Results called to [id number] by CINDA 03/23/18 0548Critical results verified and read back by Nurse? Y [id number] 22:09:00* Test Item Value Reference Range Interpretation Comments GLUBED (test code = GLUBED) 70 mg/dL 74-106 L Performed by certified collar turner operator at [facility] URINALYSIS [id number] 20:07:00* Test Item Value Reference Range Interpretation Comments UA COLOR (test code = COLU) ISRA YELLOW A UA APPEARANCE (test code = APPU) TURBID CLEAR A UA GLUCOSE DIPSTICK (test code = DGLUU) NEGATIVE mg/dL NEGATIVE UA BILIRUBIN DIPSTICK (test code = BILU) NEGATIVE mg/dL NEGATIVE UA KETONE DIPSTICK (test code = KETU) Negative mg/dL NEGATIVE UA SPECIFIC GRAVITY (test code = SGU) 1.013 1.001-1.035 UA BLOOD DIPSTICK (test code = VIJAY) 3+ (Large) NEGATIVE A UA PH DIPSTICK (test code = RACHNA) 7.0 5.0-8.0 UA PROTEIN DIPSTICK (test code = PROU) 30 (1+) mg/dL NEGATIVE A UA UROBILINIOGEN DIPSTICK (test code = URO) 4.0 (2+) mg/dL NEG ATIVE A UA NITRITE DIPSTICK (test code = ROCKY) POSITIVE NEGATIVE A UA LEUKOCYTE ESTERASE W REFLEX (test code = LEUUR) 3+ NEG ATIVE A UA WBC (test code = WBCU) >50 #/HPF 0-5 A UA RBC (test code = RBCU) >20 #/HPF 0-5 A UA WBC CLUMPS (test code = WBCUCL) >10 /HPF NONE A UA EPITHELIAL CELLS (test code = EPIU) FEW per HPF FEW UA BACTERIA (test code = BACU) MANY #/HPF NONE A UA RENAL CELLS (test code = RENNY) 0-2 #/HPF 0-5 Urine Source? Clean CatchURINALYSIS [id number] 20:03:00* Test Item Value Reference Range Interpretation Comments UA COLOR (test code = COLU) ISRA YELLOW A UA APPEARANCE (test code = APPU) TURBID CLEAR A UA GLUCOSE DIPSTICK (test code = DGLUU) NEGATIVE mg/dL NEGATIVE UA BILIRUBIN DIPSTICK (test code = BILU) NEGATIVE mg/dL NEGATIVE UA KETONE DIPSTICK (test code = KETU) Negative mg/dL NEGATIVE UA SPECIFIC GRAVITY (test code = SGU) 1.013 1.001-1.035 UA BLOOD DIPSTICK (test code = VIJAY) 3+ (Large) NEGATIVE A UA PH DIPSTICK (test code = RACHNA) 7.0 5.0-8.0 UA PROTEIN DIPSTICK (test code = PROU) 30 (1+) mg/dL NEGATIVE A UA UROBILINIOGEN DIPSTICK (test code = URO) 4.0 (2+) mg/dL NEG ATIVE A UA NITRITE DIPSTICK (test code = ROCKY) POSITIVE NEGATIVE A UA LEUKOCYTE ESTERASE W REFLEX (test code = LEUUR) 3+ NEG ATIVE A UA WBC (test code = WBCU) per HPF 0-5 Urine Source? Clean Catch- XR CHEST 1 [id number] 19:08:00 FAX: Beth Pizarro DO [place]: [address]: REG Name: ALEX [facility] : [birth year] Age/S: 67/F [address] [facility] Unit #: [id number] Loc: [place] [address] Phys: JuarezBeth DO Acct: [id number] Dis Date: Status: REG ER PHONE #: [phone] Exam Date: 03/22/2018 1900 FAX #: [phone] Reason: Altered Mental Status EXAMS: CPT CODE: [id number] XR CHEST 1 V 35912 EXAM: Chest x-ray, one view; INFORMATION: Altered [...] (1910) PAGE 1 Signed Report CBC W/AUTO [id number] 18:57:00* Test Item Value Reference Range Interpretation Comments WHITE BLOOD CELL (test code = WBC) 3.4 K/mm3 4.5-12.5 L RED BLOOD CELL (test code = RBC) 2.19 mill/mm3 3.7-5.2 L HEMOGLOBIN (test code = HGB) 6.4 gram/dL 11.5-15.5 L HEMATOCRIT (test code = HCT) 22.4 % 36.0-46.0 L MEAN CELL VOLUME (test code = MCV) 102.3 fL 80-98 H MEAN CELL HGB (test code = MCH) 29.2 picogram 27.0-33.0 N MEAN CELL HGB CONCETRATION (test code = MCHC) 28.6 gram/dL 33.0-36. 0 L RED CELL DISTRIBUTION WIDTH (test code = RDW) 18.5 % 11.6-16. 2 H RED CELL DISTRIBUTION WIDTH SD (test code = RDW-SD) 69.0 fL 37 .0-51.0 H PLATELET COUNT (test code = PLT) 95 K/mm3 150-450 L MEAN PLATELET VOLUME (test code = MPV) 11.5 fL 6.7-11.0 H NEUTROPHIL % (test code = NT%) 64.5 % 39.0-69.0 N IMMATURE GRANULOCYTE % (test code = IG%) 0.3 % 0.0-5.0 N LYMPHOCYTE % (test code = LY%) 24.5 % 25.0-55.0 L MONOCYTE % (test code = MO%) 10.1 % 0.0-10.0 H EOSINOPHIL % (test code = EO%) 0.0 % 0.0-5.0 N BASOPHIL % (test code = BA%) 0.6 % 0.0-1.0 N NUCLEATED RBC % (test code = NRBC%) 0.0 % 0-0 N NEUTROPHIL # (test code = NT#) 2.16 K/mm3 1.8-7.7 N IMMATURE GRANULOCYTE # (test code = IG#) 0.01 x10 3/uL 0-0.03 N LYMPHOCYTE # (test code = LY#) 0.82 K/mm3 1.0-5.0 L MONOCYTE # (test code = MO#) 0.34 K/mm3 0-0.8 N EOSINOPHIL # (test code = EO#) 0.00 K/mm3 0.0-0.5 N BASOPHIL # (test code = BA#) 0.02 K/mm3 0.0-0.2 N NUCLEATED RBC # (test code = NRBC#) 0.00 K/mm3 0.0-0.1 N MANUAL DIFF REQUIRED (test code = MDIFF) NO, ONLY SCAN NEEDED DIFFERENTIAL [id number] 18:57:00* Test Item Value Reference Range Interpretation Comments STAIN ACCEPTABILITY (test code = STN ACCEPTABLE) STAIN ACCEPTABLE POLYCHROMASIA (test code = POLC) 1+ HYPOCHROMIA (test code = HYPO) 2+ ANISOCYTOSIS (test code = ANISO) 1+ MACROCYTOSIS (test code = MACR) 1+ PLATELET ESTIMATE (test code = PLTEST) DECREASED PLATELET MORPHOLOGY (test code = PLTMORPH) SIZE VARIABLE BASIC METABOLIC [id number] 18:52:00* Test Item Value Reference Range Interpretation Comments SODIUM (test code = NA) 142 mmol/L 136-145 N POTASSIUM (test code = K) 4.0 mmol/L 3.5-5.1 N CHLORIDE (test code = CL) 106.0 mmol/L 98-107 N CARBON DIOXIDE (test code = CO2) 31.0 mmol/L 21-32 N ANION GAP (test code = GAP) 9.0 10-20 L GLUCOSE (test code = GLU) 64 mg/dL 74-106 L BLOOD UREA NITROGEN (test code = BUN) 15 mg/dL 7-18 N GLOMERULAR FILTRATION RATE (test code = GFR) > 60 mL/min >=60 Estimated GFR by using Modified MDRD formula.Chronic kidney disease is defined as either kidney damageor GFR <60 mL/min/1.73 m2 for >3 months. CREATININE (test code = CREAT) 0.90 mg/dL 0.55-1.02 N Note change in reference range due to change in reagent. BUN/CREATININE RATIO (test code = BUN/CREA) 17.4 10-20 N CALCIUM (test code = CA) 7.5 mg/dL 8.5-10.1 L HEPATIC FUNCTION [id number] 18:52:00* Test Item Value Reference Range Interpretation Comments TOTAL PROTEIN (test code = PROT) 6.9 gram/dL 6.4-8.2 N ALBUMIN (test code = ALB) 1.7 g/dL 3.4-5.0 L GLOBULIN (test code = GLOB) 5.2 gram/dL 2.7-4.2 H ALBUMIN/GLOBULIN RATIO (test code = A/G) 0.3 0.75-1.50 L BILIRUBIN TOTAL (test code = BILT) 0.90 mg/dL 0.0-1.0 N BILIRUBIN DIRECT (test code = BILD) 0.55 mg/dL 0.0-0.20 H SGOT/AST (test code = AST) 51 IUnit/L 15-37 H SGPT/ALT (test code = ALT) 18 IUnit/L 12-78 N ALKALINE PHOSPHATASE TOTAL (test code = ALKP) 161 IUnit/L 45-117 H Note change in reference range due to change in reagent. [id number] 18:52:00* Test Item Value Reference Range Interpretation Comments TROPONIN-I (test code = TROPI) <0.015 ng/mL 0-0.045 N BASIC METABOLIC [id number] 18:48:00* Test Item Value Reference Range Interpretation Comments SODIUM (test code = NA) 142 mmol/L 136-145 N POTASSIUM (test code = K) 4.0 mmol/L 3.5-5.1 N CHLORIDE (test code = CL) 106.0 mmol/L 98-107 N CARBON DIOXIDE (test code = CO2) mmol/L 21-32 ANION GAP (test code = GAP) 10-20 GLUCOSE (test code = GLU) mg/dL 74-106 BLOOD UREA NITROGEN (test code = BUN) mg/dL 7-18 GLOMERULAR FILTRATION RATE (test code = GFR) mL/min >=60 CREATININE (test code = CREAT) mg/dL 0.55-1.02 BUN/CREATININE RATIO (test code = BUN/CREA) 10-20 CALCIUM (test code = CA) mg/dL 8.5-10.1 HEPATIC FUNCTION [id number] 18:48:00* Test Item Value Reference Range Interpretation Comments TOTAL PROTEIN (test code = PROT) gram/dL 6.4-8.2 ALBUMIN (test code = ALB) g/dL 3.4-5.0 GLOBULIN (test code = GLOB) gram/dL 2.7-4.2 ALBUMIN/GLOBULIN RATIO (test code = A/G) 0.75-1.50 BILIRUBIN TOTAL (test code = BILT) mg/dL 0.0-1.0 BILIRUBIN DIRECT (test code = BILD) mg/dL 0.0-0.20 SGOT/AST (test code = AST) IUnit/L 15-37 SGPT/ALT (test code = ALT) IUnit/L 12-78 ALKALINE PHOSPHATASE TOTAL (test code = ALKP) IUnit/L 45-117 [id number] 18:48:00* Test Item Value Reference Range Interpretation Comments TROPONIN-I (test code = TROPI) ng/mL 0-0.045 [id number] 18:48:00* Test Item Value Reference Range Interpretation Comments AMMONIA (test code = AMM) 146 umol/L 11-32 H THROMBOPLASTIN TIME [id number] 18:42:00* Test Item Value Reference Range Interpretation Comments THROMBOPLASTIN TIME PARTIAL (test code = PTT) 33.3 seconds 25.0-36. 5 N IS PATIENT ON ANTICOAGULANTS? N- CT HEAD/BRAIN W/O [id number] 18:36:00 Name: ALEX STANTON [facility] : 1950 Age/S: 67 / F [place] Unit #: [id number] Loc: [place] [address] Phys: Aaron Pizarro lotuslakhwinder SORENSON Acct: [id number] Di s Date: Status: PRE ER PHONE #: Exam Date: 03/22/20181820 FAX #: Reason: Altered Mental Status EXAMS: CPT CODE: [id number] CT HEAD/BRAIN W/O CONT [id number] EXAM: CT of the head; INFORMATION: AMS; TECHNIQUE AND FINDINGS: CT dose reduction protocol; The ventricles are symmetric and of normal di ameter; normal width of basilar cisterns and sulci; normal monahan/white mat ter differentiation; no evidence of intra or extra-axial hemorrhage, mass lesion or midline shift. Bone windows show no abnormalities. There is opacification of right mastoid air cells. IMPRESSION: 1. Normal CT scan of the brain. 2. Right mastoiditis. at 1836 Report ed and signed by: Gonsalo Mayorga M.D. CC: Beth Pizarro DO Technologist:Geovanna Kan RT(R); STEPAN Isidro CTDI: DLP: Trnscb Date/Time: 03/22/2018 (1835) AgustoGRW Orig Print D/T: S: 03/22/2018 (1838) CTDI: DLP: PAGE 1 Signed Report CBC W/AUTO [id number] 18:33:00* Test Item Value Reference Range Interpretation Comments WHITE BLOOD CELL (test code = WBC) 3.4 K/mm3 4.5-12.5 L RED BLOOD CELL (test code = RBC) 2.19 mill/mm3 3.7-5.2 L HEMOGLOBIN (test code = HGB) 6.4 gram/dL 11.5-15.5 L HEMATOCRIT (test code = HCT) 22.4 % 36.0-46.0 L MEAN CELL VOLUME (test code = MCV) 102.3 fL 80-98 H MEAN CELL HGB (test code = MCH) 29.2 picogram 27.0-33.0 N MEAN CELL HGB CONCETRATION (test code = MCHC) 28.6 gram/dL 33.0-36. 0 L RED CELL DISTRIBUTION WIDTH (test code = RDW) 18.5 % 11.6-16. 2 H RED CELL DISTRIBUTION WIDTH SD (test code = RDW-SD) 69.0 fL 37 .0-51.0 H PLATELET COUNT (test code = PLT) 95 K/mm3 150-450 L MEAN PLATELET VOLUME (test code = MPV) 11.5 fL 6.7-11.0 H NEUTROPHIL % (test code = NT%) 64.5 % 39.0-69.0 N IMMATURE GRANULOCYTE % (test code = IG%) 0.3 % 0.0-5.0 N LYMPHOCYTE % (test code = LY%) 24.5 % 25.0-55.0 L MONOCYTE % (test code = MO%) 10.1 % 0.0-10.0 H EOSINOPHIL % (test code = EO%) 0.0 % 0.0-5.0 N BASOPHIL % (test code = BA%) 0.6 % 0.0-1.0 N NUCLEATED RBC % (test code = NRBC%) 0.0 % 0-0 N NEUTROPHIL # (test code = NT#) 2.16 K/mm3 1.8-7.7 N IMMATURE GRANULOCYTE # (test code = IG#) 0.01 x10 3/uL 0-0.03 N LYMPHOCYTE # (test code = LY#) 0.82 K/mm3 1.0-5.0 L MONOCYTE # (test code = MO#) 0.34 K/mm3 0-0.8 N EOSINOPHIL # (test code = EO#) 0.00 K/mm3 0.0-0.5 N BASOPHIL # (test code = BA#) 0.02 K/mm3 0.0-0.2 N NUCLEATED RBC # (test code = NRBC#) 0.00 K/mm3 0.0-0.1 N MANUAL DIFF REQUIRED (test code = MDIFF) NO, ONLY SCAN NEEDED DIFFERENTIAL [id number] 18:33:00* Test Item Value Reference Range Interpretation Comments STAIN ACCEPTABILITY (test code = STN ACCEPTABLE) CABOT RINGS (test code = CAB) MORPHOLOGY COMMENT (test code = MOC) PLATELET ESTIMATE (test code = PLTEST) PLATELET MORPHOLOGY (test code = PLTMORPH) CBC W/AUTO [id number] 18:33:00* Test Item Value Reference Range Interpretation Comments WHITE BLOOD CELL (test code = WBC) 3.4 K/mm3 4.5-12.5 L RED BLOOD CELL (test code = RBC) 2.19 mill/mm3 3.7-5.2 L HEMOGLOBIN (test code = HGB) 6.4 gram/dL 11.5-15.5 L HEMATOCRIT (test code = HCT) 22.4 % 36.0-46.0 L MEAN CELL VOLUME (test code = MCV) 102.3 fL 80-98 H MEAN CELL HGB (test code = MCH) 29.2 picogram 27.0-33.0 N MEAN CELL HGB CONCETRATION (test code = MCHC) 28.6 gram/dL 33.0-36. 0 L RED CELL DISTRIBUTION WIDTH (test code = RDW) 18.5 % 11.6-16. 2 H RED CELL DISTRIBUTION WIDTH SD (test code = RDW-SD) 69.0 fL 37 .0-51.0 H PLATELET COUNT (test code = PLT) 95 K/mm3 150-450 L MEAN PLATELET VOLUME (test code = MPV) 11.5 fL 6.7-11.0 H NEUTROPHIL % (test code = NT%) 64.5 % 39.0-69.0 N IMMATURE GRANULOCYTE % (test code = IG%) 0.3 % 0.0-5.0 N LYMPHOCYTE % (test code = LY%) 24.5 % 25.0-55.0 L MONOCYTE % (test code = MO%) 10.1 % 0.0-10.0 H EOSINOPHIL % (test code = EO%) 0.0 % 0.0-5.0 N BASOPHIL % (test code = BA%) 0.6 % 0.0-1.0 N NUCLEATED RBC % (test code = NRBC%) 0.0 % 0-0 N NEUTROPHIL # (test code = NT#) 2.16 K/mm3 1.8-7.7 N IMMATURE GRANULOCYTE # (test code = IG#) 0.01 x10 3/uL 0-0.03 N LYMPHOCYTE # (test code = LY#) 0.82 K/mm3 1.0-5.0 L MONOCYTE # (test code = MO#) 0.34 K/mm3 0-0.8 N EOSINOPHIL # (test code = EO#) 0.00 K/mm3 0.0-0.5 N BASOPHIL # (test code = BA#) 0.02 K/mm3 0.0-0.2 N NUCLEATED RBC # (test code = NRBC#) 0.00 K/mm3 0.0-0.1 N MANUAL DIFF REQUIRED (test code = MDIFF) NO, ONLY SCAN NEEDED DIFFERENTIAL [id number] 18:33:00* Test Item Value Reference Range Interpretation Comments STAIN ACCEPTABILITY (test code = STN ACCEPTABLE) MORPHOLOGY COMMENT (test code = MOC) PLATELET ESTIMATE (test code = PLTEST) PLATELET MORPHOLOGY (test code = PLTMORPH) CBC W/AUTO [id number] 18:33:00* Test Item Value Reference Range Interpretation Comments WHITE BLOOD CELL (test code = WBC) 3.4 K/mm3 4.5-12.5 L RED BLOOD CELL (test code = RBC) 2.19 mill/mm3 3.7-5.2 L HEMOGLOBIN (test code = HGB) 6.4 gram/dL 11.5-15.5 L HEMATOCRIT (test code = HCT) 22.4 % 36.0-46.0 L MEAN CELL VOLUME (test code = MCV) 102.3 fL 80-98 H MEAN CELL HGB (test code = MCH) 29.2 picogram 27.0-33.0 N MEAN CELL HGB CONCETRATION (test code = MCHC) 28.6 gram/dL 33.0-36. 0 L RED CELL DISTRIBUTION WIDTH (test code = RDW) 18.5 % 11.6-16. 2 H RED CELL DISTRIBUTION WIDTH SD (test code = RDW-SD) 69.0 fL 37 .0-51.0 H PLATELET COUNT (test code = PLT) 95 K/mm3 150-450 L MEAN PLATELET VOLUME (test code = MPV) 11.5 fL 6.7-11.0 H NEUTROPHIL % (test code = NT%) 64.5 % 39.0-69.0 N IMMATURE GRANULOCYTE % (test code = IG%) 0.3 % 0.0-5.0 N LYMPHOCYTE % (test code = LY%) 24.5 % 25.0-55.0 L MONOCYTE % (test code = MO%) 10.1 % 0.0-10.0 H EOSINOPHIL % (test code = EO%) 0.0 % 0.0-5.0 N BASOPHIL % (test code = BA%) 0.6 % 0.0-1.0 N NUCLEATED RBC % (test code = NRBC%) 0.0 % 0-0 N NEUTROPHIL # (test code = NT#) 2.16 K/mm3 1.8-7.7 N IMMATURE GRANULOCYTE # (test code = IG#) 0.01 x10 3/uL 0-0.03 N LYMPHOCYTE # (test code = LY#) 0.82 K/mm3 1.0-5.0 L MONOCYTE # (test code = MO#) 0.34 K/mm3 0-0.8 N EOSINOPHIL # (test code = EO#) 0.00 K/mm3 0.0-0.5 N BASOPHIL # (test code = BA#) 0.02 K/mm3 0.0-0.2 N NUCLEATED RBC # (test code = NRBC#) 0.00 K/mm3 0.0-0.1 N MANUAL DIFF REQUIRED (test code = MDIFF) NO, ONLY SCAN NEEDED DIFFERENTIAL [id number] 18:33:00* Test Item Value Reference Range Interpretation Comments STAIN ACCEPTABILITY (test code = STN ACCEPTABLE) MORPHOLOGY COMMENT (test code = MOC) PLATELET ESTIMATE (test code = PLTEST) PLATELET MORPHOLOGY (test code = PLTMORPH) CBC W/AUTO [id number] 18:33:00* Test Item Value Reference Range Interpretation Comments WHITE BLOOD CELL (test code = WBC) 3.4 K/mm3 4.5-12.5 L RED BLOOD CELL (test code = RBC) 2.19 mill/mm3 3.7-5.2 L HEMOGLOBIN (test code = HGB) 6.4 gram/dL 11.5-15.5 L HEMATOCRIT (test code = HCT) 22.4 % 36.0-46.0 L MEAN CELL VOLUME (test code = MCV) 102.3 fL 80-98 H MEAN CELL HGB (test code = MCH) 29.2 picogram 27.0-33.0 N MEAN CELL HGB CONCETRATION (test code = MCHC) 28.6 gram/dL 33.0-36. 0 L RED CELL DISTRIBUTION WIDTH (test code = RDW) 18.5 % 11.6-16. 2 H RED CELL DISTRIBUTION WIDTH SD (test code = RDW-SD) 69.0 fL 37 .0-51.0 H PLATELET COUNT (test code = PLT) 95 K/mm3 150-450 L MEAN PLATELET VOLUME (test code = MPV) 11.5 fL 6.7-11.0 H NEUTROPHIL % (test code = NT%) 64.5 % 39.0-69.0 N IMMATURE GRANULOCYTE % (test code = IG%) 0.3 % 0.0-5.0 N LYMPHOCYTE % (test code = LY%) 24.5 % 25.0-55.0 L MONOCYTE % (test code = MO%) 10.1 % 0.0-10.0 H EOSINOPHIL % (test code = EO%) 0.0 % 0.0-5.0 N BASOPHIL % (test code = BA%) 0.6 % 0.0-1.0 N NUCLEATED RBC % (test code = NRBC%) 0.0 % 0-0 N NEUTROPHIL # (test code = NT#) 2.16 K/mm3 1.8-7.7 N IMMATURE GRANULOCYTE # (test code = IG#) 0.01 x10 3/uL 0-0.03 N LYMPHOCYTE # (test code = LY#) 0.82 K/mm3 1.0-5.0 L MONOCYTE # (test code = MO#) 0.34 K/mm3 0-0.8 N EOSINOPHIL # (test code = EO#) 0.00 K/mm3 0.0-0.5 N BASOPHIL # (test code = BA#) 0.02 K/mm3 0.0-0.2 N NUCLEATED RBC # (test code = NRBC#) 0.00 K/mm3 0.0-0.1 N MANUAL DIFF REQUIRED (test code = MDIFF) NO, ONLY SCAN NEEDED DIFFERENTIAL [id number] 18:33:00* Test Item Value Reference Range Interpretation Comments STAIN ACCEPTABILITY (test code = STN ACCEPTABLE) CABOT RINGS (test code = CAB) MORPHOLOGY COMMENT (test code = MOC) PLATELET ESTIMATE (test code = PLTEST) PLATELET MORPHOLOGY (test code = PLTMORPH) FLUID,[id number] 15:16:00 RUN DATE: 02/01/18 [facility] PAGE 1 RUN TIME: 1516 Specimen Inqui ry RUN USER: INTERFACE PATIENT: ALEX STANTON ACCT #: [id number] LOC: [place] #: [id number] AGE/SX: 67/F ROOM: 2049 RE01/25/18REG DR: John Lopez MD : 50 BED: A DIS: STATUS: ADM IN TLOC: SPEC #: [id number] RECD: 01/31/18 STATUS: SOUT REQ #: [id number] PRANEETH: 01/31/18-[address] [facility] [address]: Drew Cole MD ENTERED: 01/31/18 SP TYPE: FL ASCITES OTHR DR: Gerson Messina MD, Zaher MDORDERED: GROSS COPIES TO: Gerson Messina MD [address] [facility] [place] [address] Drew Cole MD [address] [place] [address] Troy Rodriguez MD [address] [address] PROCEDURES: GROSS (02/01/18-1442) TISSUES: ASCITES FLUID - 30 ML YELLOW CLINICAL HISTORY CO LLECTION DATE: 01/31/18 ASCITES, CIRRHOSIS FINAL DIAGNOSIS Ascit es fluid for cytology, paracentesis: MESOTHELIAL CELLS, MACROPHAGES, AND WHITE BLOOD CELLS NEGATIVE FOR MALIGNANCY DMW/gm D 88712, 88626 CONTINUED ON NEXT PAGE RUN DATE: 02/01/18 [facility] P AGE 2 RUN TIME: 1516 Specimen Inquiry RUN USER: INTERFACE SPEC #: [id number] PATIENT: ALEX STANTON #[id number] (Continued) MACROSCOPIC The specimen consists of 30 mL of yellow fluid for concentration and evaluation. A cell bl ock will be prepared. GROSS PERFORMED AT [facility] [address] [place] [address] [phone] MICROSCOPIC MICROSCOPIC PERFORMED AT [facility] All of the stains, including any controls performed, stain appropriately. [facility] [address] [place] [address] [phone] PERFORMING SITE Processed at: [facility], [address] [address] [place] [address] ------- ----- Signed SIGNATURE ON FILE Francine Pacheco 02/01/18 1516 END OF R EPORT SHOULDER RIGHT COMPLETE [place] [address] Patient Name: ALEX STANTON MR #: [id number] : 1950 Age/Sex: 66/F Req #: [id number] Adm Physician: JOHN LOPEZ MD Ordered by: JOHN LOPEZ MD Report #: [id number] Location: MED/SURG3 Room/Bed: [facility] Procedure: DX/SHOULDER RIGHT COMPLETE Exam Date: 07/29/17 Exam [...] TO: JOHN LOPEZ MD SHOULDER LEFT COMPLETE [place] [address] Patient Name: ALEX STANTON MR #: [id number] : 1950 Age/Sex: 66/F Req #: [id number] [facility] Physician: JOHN LOPEZ MD Ordered by: JOHN LOPEZ MD Report #: [id number] Loc ation: MED/SURG3 Room/Bed: [facility] Procedure: DX/SHOULDER LEFT COMPLETE Exam Date: 07/29/17 Exam Time: 1857 REPORT STATUS: Signed EXAMINATION: SHOULDER LEFT COMPLETE 07/29/2017 6:37 PM COMPARISON: None INDICATION: Left shoulder pain DISCUSSION: 2 views of the left shoulder (AP internal and external rot ation) Internal and external rotation are adequate No fracture or disloca tion. Joint spaces are maintained. Soft tissues are unremarkable IMPRES JAKUB: No acute radiographic abnormality of the left shoulder Deion francisco MD Signed by: Dr. Deion Carter M.D. on 07/29/2017 8:08 PM Dic tated By: DEION CARTER MD 07 Transcribed By: NIRMALA on 07/29/172007 COPY TO: JOHN VELAZQUEZ MD KNEE LEFT THREE VIEWS [place] [address] Patient Name: ALEX STANTON MR #: [id number] : 1950 Age/Sex: 66/F Req #: [id number] Adm Physician: JOHN LOPEZ MD Ordered by: JOHN LOPEZ MD Report #: [id number] Location: MED/SURG3 Room/Bed: [facility] Procedure: [id number] DX/KNEE LEFT THREE VIEWS Exam Date: 07/29/17 Exam T unique: 1858 REPORT STATUS: Signed EXAMINATION: KNEE LEFT THREE VIEWS 07/29/2017 6:37 PM COMPARISON: None INDICATION: Left knee and ankle iban n DISCUSSION: 2 views of the left [...] JOHN LOPEZ MD ANKLE 3+ VIEWS LEFT [place] [address] Patient Name: ALEX STANTON MR #: [id number] : 1950 Age/Sex: 66/F Req #: [id number] Adm Physician: JOHN LOPEZ MD Ordered by: JOHN LOPEZ MD Report #: [id number] Location: [facility] Room/Bed: [facility] Procedure: [id number] DX/ANKLE 3+ VIEWS LEFT Exam Date: 07/29/17 [...] TO: JOHN LOPEZ MD CT CHEST W [facility] [address] [place] [address] Patient Name: ALEX STANTON MR #: [id number] : 1950 Age/Sex: 66/F Req #: [id number] Adm Physician: Ordered by: CARLOS PEDRZOA MD Report #: [id number] Location: ER Room/Bed: Procedure: [id number] CT/CT CHEST W Exam Date: 07/28/17 Exam Time: 2099 REPORT STATUS: Signed EXAM: CT CHEST W [...] ALFARO MD on 07/28/172214 Transcribed By: DAVID GOOD on 07/28/172214 COPY TO: CARLOS PEDROZA MD CHEST SINGLE (PORTABLE) [place] [address] Patient Name: ALEX STANTON MR #: [id number] : 1950 Age/Sex: 66/F Req #: [id number] Adm Physician: Ordered by: PAVITHRA ROMAN MD Report #: [id number] Location: ER Room/Bed: Procedure: [id number] DX/CHEST SINGLE (PORTAB LE) Exam Date: 07/28/17 Exam Time: 1800 REPORT STATUS: Signed PROCEDURE: A single AP view of the chest. COMPARISON: [facility], DX, CHEST SINGLE (PORTABLE), 02/05/2017, 11:56. INDICATIONS: [...] at 18:45 Dictated By: GIRMA MORRIS MD 5996 Transcribed By: SUZANNE on 07/28/17 1845 COPY TO: PAVITHRA STEPHEN MD CHEST SINGLE (PORTABLE) [place] [address] Patient Name: ALEX STANTON MR #: [id number] : 1950 Age/Sex: 66/F Req #: [id number] Adm Physician: JOHN LOPEZ MD Ordered by: GLORIA CALIX MD Report #: [id number] Location: MED/SURG3 Room/Bed: [facility] Procedure: [id number] DX/CHEST SINGLE (PORTABLE) Exam Date: 02/05/17 Exam [...] GLORIA CALIX MD KNEE RIGHT THREE VIEWS [place] [address] [place] [address] Patient Name: ALEX STANTON MR #: [id number] : 1950 Age/Sex: 66/F Req #: [id number] Adm Physician: Ordered by: OBINNA BOBO SLACK LINE YARDER Report #: [id number] Location: ER Room/Bed: Procedure: [id number] DX/KNEE RIGHT THREE VIE WS Exam Date: [...] at 14:18 Dictated By: BILLY BECKFORD MD 1418 Transcribed By: SUZANNE on 02/02/17 1418 COPY TO: OBINNA BOBO SLACK LINE YARDER CHEST XRAY LINE PLACEMENT [place] [address] Patient Name: ALEX STANTON MR #: [id number] : 1950 Age/Sex: 66/F Req #: [id number] Adm Physician: JOHN LOPEZ MD Ordered by: JOHN LOPEZ MD Report #: [id number] Location: MED/SURG Room/Bed: [facility] Procedure: [id number] DX /CHEST XRAY LINE PLACEMENT Exam Date: Exam Time: REPORT STATUS: Signed PROCEDURE: A single AP view of the chest. COMPARISON: Same day at 1516 hrs. INDICATIONS: PICC LINE PLACEMENT FINDINGS: See below. IMPRESSION: Interval retraction of right PI CC with tip overlying the inferior SVC. Pulmonary status is unchanged. No visi ble pneumothorax. Dictated by: Danita Hodgson M.D. on 12/28/2016 at 18:07 Electronically approved by: Danita Hodgson M.D. on 12/28/2016 at 18:07 Dictated By: DANITA HODGSON MD 06 Transcribed By: SUZANNE on 12/28/161806 COPY TO: JOHN LOPEZ MD CHEST XRAY LINE PLACEMENT [address] [address] Patient Name: ALEX STANTON MR #: [id number] : 1950 Age/Sex: 66/F Req #: [id number] Adm Physician: JOHN LOPEZ MD Ordered by: JOHN LOPEZ MD Report #: [id number] Location: MED/SURG Room/Bed: [facility] Procedure: DX/CHEST XRAY LINE PLACEMENT Exam Date: Exam [...] MD 06 Transcribed By: SUZANNE on 12/28/161806 CASKET TRIMMER Y TO: JOHN LOPEZ MD CHEST XRAY LINE PLACEMENT [place] [address] Patient Name: ALEX STANTON MR #: [id number] : 1950 Age/Sex: 66/F Req #: [id number] Adm Physician: JOHN LOPEZ MD Ordered by: EDEN ALVAREZ MD Report #: [id number] Location: MED/SURG Room/Bed: [facility] Procedure: DX /CHEST XRAY LINE PLACEMENT Exam Date: 12/28/16 Exam Time: 1632 REPORT STATUS: Signed PROCEDURE: A single AP view of the c hest. COMPARISON: Same day at 1445 hrs. INDICATIONS: PICC LINE ELDER CEMENT FINDINGS: See below. IMPRESSION: Interval advanc ement of right PICC, with tip now overlying the right atrium. Pulmonary sta tus is unchanged. No visible pneumothorax. Dictated by: Danita Hodgson M.D. on 12/28/2016 at 16:44 Electronically approved by: Josr Barba on 12/28/2016 at 16:44 Dictated By: DANITA HODGSON MD Elec tronically Signed By: DANITA HODGSON MD on 12/28/161643 Transcribed By: SUZANNE keane 12/28/161643 COPY TO: EDEN ALVAREZ MD CHEST XRAY LINE PLACEMENT [place] [address] Patient Name: ALEX STANTON MR #: [id number] : 1950 Age/Sex: 66/F Req #: [id number] Adm Physician: JOHN LOPEZ MD Ordered by: EDEN ALVAREZ MD Report #: [id number] Location: MED/SURG Room/Bed: [facility] Procedure: [id number] DX/CHEST XRAY LINE PLACEMENT Exam Date: 12/28/16 Exa m Time: 1632 REPORT STATUS: Signed PROCEDURE: [...] EDEN ALVAREZ MD CHEST XRAY LINE PLACEMENT [place] [address] Patient Name: ALEX STANTON MR #: [id number] : 1950 Age/Sex: 66/F Req #: [id number] Adm Physician: EDEN ALVAREZ MD Ordered by: EDEN ALVAREZ MD Report #: [id number] Location: MED/SURG Room/Bed: [facility] Procedure: [id number] DX /CHEST XRAY LINE PLACEMENT Exam Date: 12/28/16 Exam Time: 1550 REPORT STATUS: Signed PROCEDURE: A single AP view of the c hest. COMPARISON: 11/08/16 INDICATIONS: PICC LINE PLACEMENT FINDINGS: [...] overlying right brachiocephalic or proximal SVC. No visibl e pneumothorax. Limited by low lung volumes and body habitus. Significant cent ral peribronchovascular thickening/cuffing, accentuated by low lung volume s. Underlying infiltrates cannot be excluded. Dictated by: Danita Hodgson M.D. on 12/28/2016 at 16:14 Electronically approved by: Danita Hodgson M.D. on 12/28/2016 at 16:14 Dictated By: DANITA HODGSON MD Carmen ctronically Signed By: DANITA HODGSON MD on 12/28/161613 Transcribed By: SUZANNE on 12/28/161613 COPY TO: EDEN ALVAREZ MD CHEST XRAY LINE PLACEMENT [place] [address] Patient Name: ALEX STANTON MR #: [id number] : 1950 Age/Sex: 66/F Req #: [id number] Adm Physician: JOHN LOPEZ MD Ordered by: EDEN ALVAREZ MD Report #: [id number] Location: MED/SURG Room/Bed: [facility] Procedure: [id number] DX/CHEST XRAY LINE PLACEMENT Exam Date: 12/28/16 Exa m Time: 1550 REPORT STATUS: Signed PROCEDURE: A [...] DANITA HODGSON MD on 12/28/161613 Transcribed By: [facility] E on 12/28/161613 COPY TO: EDEN ALVAREZ MD KNEE RIGHT 1-2 VIEWS [place] [address] Patient Name: ALEX STANTON MR #: [id number] : 1950 Age/Sex: 66/F Req #: [id number] Adm Physician: EDEN ALVAREZ MD Ordered by: EDEN ALVAREZ MD Report #: [id number] Locat ion: MED/SURG Room/Bed: [facility] Procedure: [id number] DX /KNEE RIGHT 1-2 VIEWS Exam Date: 12/28/16 Exam Time: 1255 REPORT STATUS: Signed PROCEDURE: X-RAY RIGHT KNEE, ONE OR TWO VIE WS COMPARISON: 11/09/16 INDICATIONS: POST OPERATIVE RIGHT KNEE SURGERY FINDINGS: See conclusion. CONCLUSION: Status post removal of r ight knee prosthesis with surrounding soft tissue swelling, surgical drain, a ir and ayush consistent with recent surgery. Loss of joint spaces. Nondis placed anterior distal femoral fracture. Dictated by: Danita Hodgson M.D. on 12/28/2016 at 13:45 Electronically approved by: Danita Hodgson M.D. on 12/28/2016 at 13:45 Dictated By: DANITA HODGSON MD Electron ically Signed By: DANITA HODGSON MD on 12/28/161344 Transcribed By: SUZANNE on 1344 COPY TO: EDEN ALVAREZ MD KNEE RIGHT 1-2 VIEWS [place] [address] Patient Name: ALEX STANTON MR #: [id number] : 1950 Age/Sex: 66/F Req #: [id number] Adm Physician: JOHN LOPEZ MD Ordered by: EDEN ALVAREZ MD Report #: [id number] Loc ation: MED/SURG Room/Bed: [facility] Procedure: [id number] DX/KNEE RIGHT 1-2 VIEWS Exam Date: 12/28/16 [...] onically Signed By: DANITA HODGSON MD on 12/28/161344 Transcribed By: SUZANNE on 12/28/161344 COPY TO: EDEN ALVAREZ MD KNEE RIGHT 1-2 VIEWS [place] [address] Patient Name: ALEX STANTON MR #: [id number] : 1950 Age/Sex: 66/F Req #: [id number] Adm Physician: JOHN LOPEZ MD Ordered by: EDEN ALVAREZ MD Report #: [id number] Locat ion: MED/SURG Room/Bed: [facility] Procedure: [id number] DX /KNEE RIGHT 1-2 VIEWS Exam Date: 11/09/16 Exam Time: 1330 REPORT STATUS: Signed PROCEDURE: X-RAY RIGHT KNEE, ONE OR TWO V IEWS COMPARISON: [facility], , KNEE RIGHT 1-2 VIEWS, 1 03/13/2015, 13:20. INDICATIONS: POST KNEE SURGERY, THIRD KNEE REPLACEMENT FINDINGS: Status post total right knee arthroplasty with intact stemmed femoral and tibial prosthetic components in adequate anatomic alignment. There is post-operative suprapatellar effusion, soft tissue swelling and gas. Overlying surgical drain. Multiple surgical skin ayush. No acute fract ure-dislocation. CONCLUSION: Status post total right knee arthroplasty with intact prosthesis in adequate anatomic alignment. Ramona Manley M.D. Dictated by: Ramona Manley M.D. on 11/09/2016 at 14 :52 Electronically approved by: Ramona Manley M.D. on 11/09/2016 at 14:52 Dictated By: CHRIS MANLEY MD, MD Electronically Sig thad By: CHRIS MANLEY MD, MD on 11/09/161451 Transcribed By: SUZANNE on 11/09/161451 COPY TO: EDEN ALVAREZ MD KNEE RIGHT 1-2 VIEWS [place] [address] Patient Name: ALEX STANTON MR #: [id number] : 1950 Age/Sex: 66/F Req #: [id number] Adm Physician: JOHN LOPEZ MD Ordered by: EDEN ALVAREZ MD Report #: [id number] Loc ation: MED/SURG Room/Bed: [facility] Procedure: [id number] DX/KNEE RIGHT 1-2 VIEWS Exam Date: 11/09/16 Exam Patricio e: 1330 REPORT STATUS: Signed PROCEDURE: X-RAY RIGHT KNEE, ONE OR TWO VIEWS COMPARISON: [facility], DX, KNEE RIGHT 1-2 VIEWS, 01/12/2016, 13:20. [...] MANLEY MD, MD on 11/09/161451 Transcribed By: SUZANNE on 1451 COPY TO: EDEN ALVAREZ MD [facility] (PORTABLE) [place] [address] Patient Name: ALEX STANTON MR #: [id number] : 1950 Age/Sex: 66/F Req #: [id number] Adm Physician: Ordered by: CARLOS PEDROZA MD Report #: [id number] Location: ER Room/Bed: Procedure: [id number] DX/CHEST SINGLE (PORTABLE) E xam Date: 11/08/16 Exam Time: 2200 REPORT STATU S: Signed EXAM: CHEST SINGLE (PORTABLE), AP 1 view DATE: 11/08/2016 9:13 PM Time stamp on exam: 2153 hours INDICATION: Preop for knee surgery COMPARISO N: AP view of the chest September 06, 2016 FINDINGS: LINES/TUBES: None ALEXANDREA NGS: Low inspiration with bibasilar atelectasis and vascular prominence. P LEURA: No effusions or pneumothorax. HEART AND MEDIASTINUM: Stable enlargem ent of the cardiomediastinal silhouette with prominent central vessels and rig ht paratracheal stripe likely due to ectatic vasculature. BONES AND SOFT TISSUES: No acute findings. IMPRESSION: No interval change from prior ex am. Signed by: Dr. Gibson Blancas M.D. on 11/08/2016 10:16 PM Dictated By: GIBSON BLANCAS MD 15 Transcribed By: NIRMALA on 11/08/162215 COPY TO: Aaron PEDROZA MD CHEST SINGLE (PORTABLE) [place] [address] Patient Name: ALEX STANTON MR #: [id number] : 1950 Age/Sex: 66/F Req #: [id number] Adm Physician: JOHN LOPEZ MD Ordered by: CARLOS PEDROZA MD Report #: [id number] Location: MED/SURG Room/Bed: [facility] Procedure: [id number] DX/CHEST SINGLE (PORTABLE) Exam Date: 11/08/16 Exam Time: 0 REPORT STATUS: Signed EXAM: CHEST SINGLE (PORTABLE), [...] on 11/08/162215 COPY TO: CARLOS PEDROZA MD US ABDOMEN COMPLETE [place] [address] Patient Name: ALEX STANTON MR #: [id number] : 1950 Age/Sex: 66/F Req #: [id number] Adm Physician: JOHN LOPEZ MD Ordered by: DOROTA HOLLIS MD Report #: [id number] Location: IMCU Room/Bed: [facility] 184-1 Procedure: [id number] US/ US ABDOMEN COMPLETE Exam Date: 11/03/16 Exam Time: 1 740 REPORT STATUS: Signed PROCEDURE: ABDOMINAL ULTRASOUND COMPARISO N: [facility], US, US ABDOMEN LIMITED, 05/31/2016, 10:48. IND ICATIONS: Liver cirrhosis, evaluate liver and spleen FINDINGS: Liver: 19.0 cm. Nodular contour. Increased hepatic parenchymal echogenicity. No focal mass. Main portal vein: 1.2 cm. Hepatopetal flow. Gallbladder : Absent. Common Bile Duct: 0.5 cm. No echogenic filling defect. Sonographi c Pinto's sign: Negative Right kidney: 10.9 cm. No solid or cystic mass, echogenic calculi, or hydronephrosis. Normal parenchymal echogenicity. Left kidney: 12.0 cm. No solid or cystic mass, echogenic calculi, or hydronephros is. Normal parenchymal echogenicity. Spleen: 15.7 cm. No focal lesions. Pancreas: The visualized portions of the pancreas are normal. Inferior ve na cava: Normal. Aorta: Normal. Ascites: None. CONCLUSION: 1. hepatomegaly with nodular contour suggestive of cirrhosis. Increased parench ymal echogenicity, representing fatty infiltration. No focal lesions. 2. Sp lenomegaly, which may reflect portal hypertension. Zach Morris M.D. Dictated by: Girma Morris M.D. on 11/03/2016 at 1 9:13 Electronically approved by: Girma Morris M.D. on 11/03/2016 at 19:13 Dictated By: GIRMA MORRIS MD 12 Transcribed By: SUZANNE on 11/03/161912 COPY TO: DOROTA HOLLIS MD US ABDOMEN COMPLETE [facility] [address] [place] [address] Patient Name: ALEX STANTON MR #: [id number] : 1950 Age/Sex: 66/F Req #: [id number] Adm Physician: JOHN LOPEZ MD Ordered by: DOROTA HOLLIS MD Report #: [id number] Location: [facility] Room/Bed: [place] [address] Procedure: [id number] U S/US ABDOMEN COMPLETE Exam Date: 11/03/16 Exam Time: 1740 REPORT STATUS: Signed PROCEDURE: ABDOMINAL ULTRASOUND COMPARI SON: [facility], US, US ABDOMEN LIMITED, 05/31/2016, 10:48. I [...] 2. Splenomegaly, which may reflect portal hypertension. C shelly Morris M.D. Dictated by: Girma Morris M.D. on 11/03/2016 at 19:13 Electronically approved by: Girma Morris M.D. on 11/03/2016 at 19:13 Dictated By: GIRMA MORRIS MD 12 Transcribed By: SUZANNE on 11/03/161912 COPY TO: DOROTA HOLLIS MD CHEST SINGLE (PORTABLE) [place] [address] Patient Name: ALEX STANTON MR #: [id number] : 1950 Age/Sex: 66/F Req #: [id number] Adm Physician: Ordered by: MABEL WONG MD Report #: [id number] Location: ER Room/Bed: Procedure: [id number] DX/CHEST SINGLE (PORTABLE) Exam Date: Exam Time: [...] SUZANNE on 09/06/161822 COPY TO: MABEL WONG MD G I BLEED [place] [address] Patient Name: ALEX STANTON MR #: [id number] : 1950 Age/Sex: 66/F Req #: [id number] Adm Physician: JOHN LOPEZ MD Ordered by: GERSON MESSINA MD Report #: [id number] Lo cation: IM Room/Bed: [facility] 186-1 Procedure: 0606-000 1 NM/G I BLEED Exam Date: 08/03/16 [...] By: NIRMALA on 08/03/16 1341 COPY TO: GERSON MESSINA MD CHEST SINGLE (PORTABLE) [address] [place], [place] [address] Patient Name: ALEX STANTON MR #: [id number] : 1950 Age/Sex: 66/F Req #: [id number] Adm Physician: JOHN LOPEZ MD Ordered by: MABEL WONG MD Report #: [id number] Loca tion: [facility] Room/Bed: [place] [address] Procedure: [id number] DX/CHEST SINGLE (PORTABLE) Exam Date: 08/02/16 Exam Time: 1500 REPORT STATUS: Signed PROCEDURE: A single AP view of the c hest. COMPARISON: Portable chest 05/28/2016. INDICATIONS: CHEST IBAN N FINDINGS: Lines/tubes: None. Lungs: Low lung [...] at 15:53 Dictated By: BILLY BECKFORD MD 778 Transcribed By: SUZANNE on 08/02/161552 CASKET TRIMMER Y TO: MABEL WONG MD ABDOMEN LIMITED [facility] [address] [place] [address] Patient Name: ALEX STANTON MR #: [id number] : 1950 Age/Sex: 66/F Req #: [id number] Adm Physician: JOHN LOPEZ MD Ordered by: GERSON MESSINA MD Report #: [id number] Location: MED/SURG2 Room/Bed: 202 Procedure: [id number] 2 US/US ABDOMEN LIMITED Exam [...] By: SUZANNE on 05/31/16 1231 COPY TO: GERSON MESSINA MD [facility] (PORTABLE) [address], [place], [place] [address] Patient Name: ALEX STANTON MR #: [id number] : 1950 Age/Sex: 66/F Req #: [id number] Adm Physician: JOHN LOPEZ MD Ordered by: OBINNA STEVENSON MD Report #: [id number] Location: MED/SURG2 Room/Bed: [facility] Procedure: DX/CHEST SINGLE (PORTABLE) Exam Date: 05/28/16 [...] TO: OBINNA STEVENSON MD CHEST SINGLE (PORTABLE) [place] [address] Patient Name: ALEX STANTON MR #: [id number] : 1950 Age/Sex: 66/F Req #: [id number] Adm Physician: JOHN LOPEZ MD Ordered by: GERSON MESSINA MD Report #: [id number] Location: MED/SURG3 Room/Bed: [facility] Procedure: 0128-000 6 DX/CHEST SINGLE (PORTABLE) Exam Date: 03/27/16 Sonny johnson Time: 044 REPORT STATUS: Signed EXAMINATION: CHEST SINGLE (PORTABLE [...] on 03/27/2016 5:36 AM Dictated By: AMILCAR CASTOERNA MD El ectronically Signed By: AMILCAR CASTORENA MD on 03/27/1636 Transcribed By : NIRMALA on 03/27/1636 COPY TO: GERSON MESSINA MD [place] [address] Patient Name: ALEX STANTON MR #: [id number] DO B: 1950 Age/Sex: 66/F Req #: [id number] Adm Physici an: JOHN LOPEZ MD Ordered by: JOHN LOPEZ MD Report #: [id number] Loc ation: MED/SURG3 Room/Bed: 297-1 Procedure: 4005-4512 US/US LIVER Exam Date: 03/26/16 Exam Time: [...] JOHN LOPEZ MD CHEST XRAY LINE PLACEMENT [address], [place] [address] Patient Name: ALEX STANTON MR #: [id number] : 1950 Age/Sex: 66/F Req #: [id number] Adm Physician: JOHN LOPEZ MD Ordered by: JOHN LOPEZ MD Report #: [id number] Location: [facility]/SURG[facility] Room/Bed: [facility] Procedure: 2991-9122 DX/CHEST XRAY LINE PLACEMENT Exam Date: Exam [...] 03/25/161927 COPY TO: JOHN LOPEZ MD CHEST [facility] (PORTABLE) [facility] [address] [place] [address] Patient Name: ALEX STANTON MR #: [id number] : 1950 Age/Sex: 66/F Req #: [id number] Adm Physician: JOHN LOPEZ MD Ordered by: OBINNA STEVENSON MD Report #: [id number] Location: MED/SURG3 Room/Bed: [facility] Procedure: DX/CHEST SINGLE (PORTABLE) Exam Date: 03/24/16 [...] OBINNA STEVENSON MD CHEST XRAY LINE PLACEMENT [place] [address] Patient Name: ALEX STANTON MR #: [id number] : 1950 Age/Sex: 66/F Req #: [id number] Adm Physician: EDEN ALVAREZ MD Ordered by: EDEN ALVAREZ MD Report #: [id number] Location: MED/SURG Room/Bed: [facility] Procedure: [id number] DX/CHEST XRAY LINE PLACEMENT Exam Date: 01/12/16 Sonny johnson Time: 1610 REPORT STATUS: Signed PROCEDURE: A [...] EDEN ALVAREZ MD KNEE RIGHT 1-2 VIEWS [place] [address] Patient Name: ALEX STANTON MR #: [id number] : 1950 Age/Sex: 66/F Req #: [id number] Adm Physician: EDEN ALVAREZ MD Ordered by: EDEN ALVAREZ MD Report #: [id number] Loc ation: MED/SURG Room/Bed: 106-1 Procedure: [id number] DX/KNEE RIGHT 1-2 VIEWS Exam Date: 01/12/16 [...] TO: EDEN ALVAREZ MD CHEST 2 VIEWS [place] [address] Patient Name: ALEX STANTON MR #: [id number] : 1950 Age/Sex: 66/F Req #: [id number] Adm Physician: EDEN ALVAREZ MD Ordered by: EDEN ALVAREZ MD Report #: [id number] Loc ation: MED/SURG Room/Bed: 106-1 Procedure: [id number] DX/CHEST 2 VIEWS Exam Date: 01/09/16 Exam Time: 1350 REPORT STATUS: Signed PROCEDURE: CHEST 2 VIEWS TECHNIQUE: PA and lateral chest INDICATION: Preoperative evaluation for right knee replacement COMPARISON: [facility], DX, CHEST 2 VIEWS, 09/19/2015, 14:26. FINDINGS: [...] VILLARREAL MD 1424 Transcribed By: SUZANNE on 01/09/16 1424 COPY TO: EDEN ALVAREZ MD CHEST 2 VIEWS [place] [address] Patient Name: ALEX STANTON MR #: [id number] : 1950 Age/Sex: 66/F Req #: [id number] Adm Physician: Ordered by: EDEN ALVAREZ MD Report #: [id number] Location: OR Room/Bed: Procedure: [id number] DX/CHEST 2 VIEWS Exam Date : 09/19/15 Exam Time: 1430 REPORT STATUS: Kim d PROCEDURE: Frontal and lateral views of the chest. COMPARISON: [facility], DX, CHEST SINGLE (NOT PORTABLE), 08/14/2015, [...] TO: EDEN ALVAREZ MD G I BLEED [place] [address] Patient Name: ALEX STANTON MR #: [id number] : 1950 Age/Sex: 66/F Req #: [id number] Adm Physician: JOHN LOPEZ MD Ordered by: GERSON MESSINA MD Report #: [id number] Location: MED/SURG3 Room/Bed: [facility] Procedure: 619-000 1 NM/G I BLEED Exam Date: 08/18/15 [...] this time. Dictated By: ELLEN LONG MD 41 Transcribed By: NIRMALA on 08/18/151738 COPY TO: GERSON MESSINA MD ANKLE 3 + VIEWS RIGHT [place] [address] Patient Name: ALEX STANTON MR #: [id number] : 1950 Age/Sex: 66/F Req #: [id number] Adm Physician: JOHN LOPEZ MD Ordered by: WILLIAM HOLLAND, KENZIE HOLLAND Report #: [id number] Location: MED/[facility] Room/Bed: [facility] Procedure: 0616- 0027 DX/ANKLE 3 + VIEWS [...] NORA LANDA DO Electro nically Signed By: ONRA LANDA DO on 08/14/15 0950 Transcribed By: SUZANNE on 0 08/14/15 0958 COPY TO: KENZIE THOMAS CHEST SINGLE (NOT PORTABLE) [place] [address] Patient Name: ALEX STANTON MR #: [id number] DO B: 1950 Age/Sex: 66/F Req #: [id number] Adm Physici an: JOHN LOPEZ MD Ordered by: KENZIE THOMAS MD, MD Report #: [id number] Location: [facility]/SURG3 Room/Bed: [facility] Procedure: 0616- 0025 DX/CHEST SINGLE (NOT PORTABLE) Exam Date: 08/14/15 Exam Time: 0855 REPORT STATUS: Signed PROCEDURE: X-RAY CHEST, ONE VIEW COMPARISON: None. INDICATIONS: RIGHT KNEE/ANKLE PAIN FINDINGS: There are no consolidations, pleural effusions or pneumothorax. The cardiomediastinal silhouette is prominent. The pulmonary vasculature is normal. There are no acute osseous abnormalities. CONCLUSION: No [facility] cardiopulmonary abnormality. Nora Landa D.O. Dictated by: Nora Landa D.O. on 08/14/2015 at 9:52 Electronically approved by: Russell Landa D.O. on 08/14/2015 at 9:52 Dictated By: NORA SMART DO 0944 Transcribe d By: SUZANNE on 08/14/15 0952 COPY TO: KENZIE THOMAS KNEE RIGHT THREE VIEWS [place] [address] Patient Name: ALEX STANTON MR #: [id number] : 1950 Age/Sex: 66/F Req #: [id number] Adm Physician: JOHN LOPEZ MD Ordered by: KENZIE THOMAS MD, MD Report #: [id number] Location: MED/SURG3 Room/Bed: [facility] Procedure: 0616- 0019 DX/KNEE RIGHT THREE VIEWS Exam Date: 08/14/15 E xa Time: 0855 REPORT STATUS: Signed PROCEDURE: X-RAY [...]
--- NOTE | 2019-07-20 19:28 | Emergency Department Note ---
History of Present Illnes History of Present Illness Chief Complaint: Neurological History of Present Illness This is a 68 year old female brought by EMS for altered mental status. I assumed care of the patient at 1900. Seen at bedside lethargic and patient unable to provide meaningful history . 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 Any updates have been documented here. Past Medical History Recent Fever: No Clinical Suspicion of Infectio: No New/Unexplained Change in Ment: Yes Past Medical History: Hypertension, Diabetes, CHF, SC, Anemia, Anxiety, Depression, GERD, Hyperlipedemia, Chronic Kidney Disease Other Medical History: RT BKA CIRRHOSIS NEUROPATHY CKD STAGE 3 ESOPHAGEAL VARICES ASCITES MULTIPLE BLOOD TRANSFUSIONS Past Surgical History: Cholecysctectomy, Hysterectomy, Hip Replacement, Knee Replacement Other Surgery: RT BKA Social History Alcohol Use: Daily Family History Family history of heart diseas: No Other Last Tetanus: OOD Review of Systems ROS Narrative Unable to obtain ROS: Unable to obtain due to, altered mental status, critical patient Review of Systems Review of other systems All other systems reviewed and negative. Physical Exam Related Data Allergies: Coded Allergies: morphine (Verified Allergy, Intermediate, itching, 03/18/17) Triage Vital Signs Vital Signs Date Time Temp Pulse Resp B/P (MAP) Pulse Ox O2 Delivery O2 Flow Rate FiO2 07/20/19 18:20 98.3 88 16 108/80 99 Physical Exam CONSTITUTIONAL Constitutional: morbidly obese, distressed, ill appearing, other (lethargic) HENT HENT: normocephalic, atraumatic, oropharynx clear/moist, oropharynx normal HENT L/R: left ext ear normal, right ext ear normal EYES Eyes: scleral icterus NECK Neck: ROM normal PULMONARY Pulmonary: effort normal, breath sounds normal CARDIOVASCULAR Cardiovascular: regular rhythm, heart sounds normal, capillary refill normal, normal rate GASTROINTESTINAL Abdominal: soft, nontender, bowel sounds normal GENITOURINARY Genitourinary: exam deferred SKIN Skin: warm, dry MUSCULOSKELETAL Musculoskeletal: other (Right AKA) NEUROLOGICAL Neurological: DTRs normal, sensory deficit, weakness, other (lethargic. GCS 11, patient responsive to pain); alert, oriented x 3 PSYCHOLOGICAL Psychological: mood/affect normal, judgement normal Results Laboratory Laboratory Laboratory Tests Test 07/20/19 19:10 Lab results reviewed: Yes Imaging Impressions [facility] [address] [place] [address] Patient Name: ALEX STANTON MR #: [id number] : 1950 Age/Sex: 68/F Req #: [id number] Adm Physician: Ordered by: INGRID ZHENG NP Report #: [id number] Location: ER Room/Bed: Procedure: [id number] CT/CT BRAIN WO Exam Date: 07/20/19 Exam Time: 1850 REPORT STATUS: Signed History:AMS Comparison studies:None Technique: Axial images were obtained from the skull base to the vertex. Coronal and sagittal images reconstructed from the axial data. Intravenous contrast: None Dose modulation, iterative reconstruction, and/or weight based adjustment of the mA/kV was utilized to reduce the radiation dose to as low as reasonably achievable. Findings: Motion artifact limits evaluation in some of the images. Scalp/skull: No abnormalities. Extra-axial spaces: No masses. No fluid collections. Brain sulci: Mildly prominent. Ventricles: Age-appropriate. No hydrocephalus. Parenchyma: No abnormal densities. No masses, hemorrhage, acute or chronic cortical vascular insults. Sellar/suprasellar region: No abnormalities. Craniocervical junction: Patent foramen magnum. No Chiari one malformation. Incidental findings: Atherosclerotic calcifications in the carotid siphons . Impression: No acute abnormalities. Signed by: DR Zeeshan Mathias M.D. on 07/20/2019 7:38 PM Dictated By: ZEESHAN RANDALL MD 37 Transcribed By: NIRMALA on 07/20/191937 COPY TO: INGRID ZHENG STAFF COMMAND AND CONTROL OFFICER~ [place] [address] Patient Name: ALEX STANTON MR #: [id number] : 1950 Age/Sex: 68/F Req #: [id number] Adm Physician: Ordered by: INGRID ZHENG NP Report #: [id number] Location: ER Room/Bed: Procedure: [id number] DX/CHEST SINGLE (PORTABLE) Exam Date: 07/20/19 Exam Time: 1849 REPORT STATUS: Signed Examination: Single AP view of the chest. COMPARISON: Portable chest 04/15/2019 INDICATION: Shortness of breath IMPRESSION: 1. Lines and Tubes: None 2. Markedly hypoinflated lungs. Stable elevation of the right hemidiaphragm, which may be due to eventration. No definite consolidation or effusion. 3. Prominence of the cardiac silhouette and central pulmonary vascular crowding due to low lung volumes. 4. No acute bony abnormalities. Signed by: Dr. Franchesca Jamison M.D. on 07/20/2019 7:26 PM Dictated By: FRANCHESCA JAMISON MD 25 Transcribed By: NIRMALA on 07/20/191925 COPY TO: INGRID ZHENG STAFF COMMAND AND CONTROL OFFICER~ Procedures Central Line Placement Central Line Location: right femoral Time out performed: Yes Patient Placed on Monitor/Puls: Yes Prep: mask, gown, gloves, other Central Line Lumen Inserted: triple Post Procedure: sutured in place, good blood return Post Procedure X-ray: tip of catheter in good condition Patient tolerated procedure: well Complications: none Critical Care Time Total Critical Care Time (min): 31 Critcal care necessary due to: metabolic failure Critcal care time spent by me: blood dram for specimens, develop tx plan w patient/surrogate, evaluation patient response to tx, examination of patient, obtaining hx from patient/surrogate, order/perform tx or interventions, order/review radiographic studies, pulse oximetry, re-evaluation of patient condition, review of old charts, vascular access procedures Assessment & Plan Assessment & Plan Final Impression: (1) Hepatic encephalopathy (2) UTI (urinary tract infection) (3) Renal insufficiency (4) Hyperbilirubinemia Assessment & Plan discussed case with khadar and son. Plan to admit to the hospital for recurrent hepatic encephalopathy. Mentation improved prior to transfer to the floor. Depart Disposition: ADMITTED Last Vital Signs Date Time Temp Pulse Resp B/P (MAP) Pulse Ox O2 Delivery O2 Flow Rate FiO2 07/20/19 18:20 98.3 88 16 108/80 99 Home Meds Reported Medications Duloxetine Hcl (CYMBALTA) 60 Mg Capsule.dr, 60 MG PO DAILY 07/20/19 [Victoza 18MG/3ML] No Conflict Check, SC DAILY 07/20/19 Fe Fumarate/Fa/Mv, Min Comb#15 (HEMOCYTE PLUS CAPSULE) 1 Each Capsule, 1 CAP PO BID 07/20/19 Propranolol Hcl (PROPRANOLOL HCL) 10 Mg Tablet, 10 MG PO BID, TAB 07/20/19 Trazodone Hcl (TRAZODONE HCL) 300 Mg Tablet, 300 MG PO HS 07/20/19 Potassium Chloride (POTASSIUM CHLORIDE) 20 Meq Tab.er.prt, 20 MEQ PO DAILY 07/20/19 Sucralfate (SUCRALFATE) 1 Gm Tablet, 1 GM PO ACHS, TAB 02/07/19 Pantoprazole Sodium* (PROTONIX) 40 Mg Tablet.dr, 40 MG PO BID, TAB 02/07/19 Rifaximin (XIFAXAN) 550 Mg Tablet, 550 MG PO BID 10/20/18 Glimepiride (GLIMEPIRIDE) 2 Mg Tablet, 2 MG PO DAILY 10/20/18 Gabapentin (GABAPENTIN) 600 Mg Tablet, 600 MG PO Q6H 10/20/18 Furosemide (FUROSEMIDE) 40 Mg Tablet, 40 MG PO BID 10/20/18 Spironolactone (SPIRONOLACTONE) 25 Mg Tablet, 25 MG PO BID, #60 TAB 10/20/18 Lactulose (LACTULOSE) 10 Gm/15 Ml Solution, 15 ML PO TID 10/20/18 Discontinued Reported Medications Ergocalciferol (Vitamin D2) (Vitamin D2) 50 Mcg Capsule, 1.25 MG PO Q WEEK 02/07/19 Duloxetine Hcl (CYMBALTA) 30 Mg Capsule.dr, 60 MG PO HS, #30 CAP 02/07/19 Propranolol Hcl (PROPRANOLOL HCL) 60 Mg Cap.sa.24h, 10 MG PO BID 10/20/18 Trazodone Hcl (TRAZODONE HCL) 50 Mg Tablet, 300 MG PO HS 10/20/18 Potassium Chloride (POTASSIUM CHLORIDE) 10 Meq Tablet.er, 10 MEQ PO BID 10/20/18 Medications in the ED Sodium Chloride 1,000 ml @ 0 mls/hr Q0M STAT IV Last administered on 07/20/19at 20:11; Admin Dose 999 MLS/HR; Start 07/20/19 at 19:29; Stop 07/20/19 at 19:31; Status ARAM BENITEZ DO July 20, 2019 19:27
[2019-07-20] MEDS ORDERED: SODIUM CHLORIDE 0.9% 1000ML 1,000 ML IV STA (19:29)
[2019-07-20 19:31] LABS: BASOPHILS # (AUTO) 0.1 (0.0-0.1); EOSINOPHILS # (AUTO) 0.7 (0.0-0.4); EOSINOPHILS % 11.7 % (0.0-6.0); HEMATOCRIT 26.6 % (34.2-44.1); LYMPHOCYTES % 15.5 % (18.0-39.1); MEAN CORPUSCULAR HEMOGLOBIN 34.6 pg (28-32); MEAN CORPUSCULAR HGB CONC 30.1 g/dL (31-35); MEAN CORPUSCULAR VOLUME 115.2 fL (81-99); MONOCYTES # (AUTO) 0.7 (0.2-0.8); MONOCYTES % 11.2 % (4.4-11.3); NEUTROPHILS # (AUTO) 3.8 (2.1-6.9); NEUTROPHILS % 60.4 % (38.7-80.0); PLATELET COUNT 112 x10e3/uL (140-360); RED BLOOD COUNT 2.31 x10e6/uL (3.6-5.1); RED CELL DISTRIBUTION WIDTH 16.8 % (11.7-14.4)
--- NOTE | 2019-07-20 19:42 | Diagnostic Imaging Report ---
History:AMS Comparison studies:None Technique: Axial images were obtained from the skull base to the vertex. Coronal and sagittal images reconstructed from the axial data. Intravenous contrast: None Dose modulation, iterative reconstruction, and/or weight based adjustment of the mA/kV was utilized to reduce the radiation dose to as low as reasonably achievable. Findings: Motion artifact limits evaluation in some of the images. Scalp/skull: No abnormalities. Extra-axial spaces: No masses. No fluid collections. Brain sulci: Mildly prominent. Ventricles: Age-appropriate. No hydrocephalus. Parenchyma: No abnormal densities. No masses, hemorrhage, acute or chronic cortical vascular insults. Sellar/suprasellar region: No abnormalities. Craniocervical junction: Patent foramen magnum. No Chiari one malformation. Incidental findings: Atherosclerotic calcifications in the carotid siphons . Impression: No acute abnormalities. Signed by: DR Zeeshan Mathias M.D. on 07/20/2019 7:38 PM
[2019-07-20 19:43] LABS: INR 1.08; PROTHROMBIN TIME 14.7 seconds (11.9-14.5)
[2019-07-20 19:44] LABS: PARTIAL THROMBOPLASTIN TIME 33.3 seconds (23.8-35.5)
[2019-07-20 19:47] LABS: ALBUMIN 2.3 g/dL (3.5-5.0); ALBUMIN/GLOBULIN RATIO 0.7 (0.8-2.0); ANION GAP 12.2 mmol/L (8-16); CALCIUM 8.2 mg/dL (8.4-10.2); CREATININE, SERUM 1.15 mg/dL (0.57-1.11); POTASSIUM 3.2 mmol/L (3.5-5.1)
[2019-07-20 19:54] LABS: AMPHETAMINES SCREEN,URINE NEGATIVE (NEGATIVE); BENZODIAZEPINES SCREEN,URINE NEGATIVE (NEGATIVE); CLARITY,URINE SL CLOUDY (CLEAR); COLOR,URINE YELLOW (YELLOW); KETONES,URINE NEGATIVE (NEGATIVE); LEUKOCYTE ESTERASE ,URINE NEGATIVE (NEGATIVE); NITRITE,URINE NEGATIVE (NEGATIVE); PHENCYCLIDINE SCREEN,URINE NEGATIVE (NEGATIVE); PROTEIN,URINE DIPSTICK NEGATIVE (NEGATIVE)
[2019-07-20 19:55] LABS: BILIRUBIN,URINE NEGATIVE (NEGATIVE); URINE UROBILINOGEN 1 mg/dL (0.2 - 1)
[2019-07-20 20:02] LABS: BACTERIA,URINE MODERATE /HPF; EPITHELIAL CELLS,URINE FEW /LPF; RBC,URINE 0-5 /HPF (0-5); WBC,URINE (MAN) 0-5 /HPF (0-5)
[2019-07-20] MEDS: PIPER-TAZ 3.375 GM 50 ML IV SCH (20:40)
--- OUTSIDE RECORDS SUMMARY | 2019-07-20 21:10 | XMS REPORT ---
Author Author [facility] t Organization [facility] t Address [address] [place] [address] Phone Unavailable Care Team Providers Care Cake Wringer Name Role Phone JOHN LOPEZ MD PCP ARAM PACK Attphys Unavailable JOHN LOPEZ Attphys Unavailable DAHU, S JIRIES Attphys Unavailable KOSOWMYA, NEIDA Attphys Unavailable LUKASZ OWUSU Attphys Unavailable Jeanna WONG Attphys Unavailable EDEN ALVAREZ Attphys Unavailable JOHN LOPEZ Admphys Unavailable Shiv MEYER JIRIES Admphys Unavailable EDEN ALVAREZ Admphys Unavailable Payers Payer Name Policy Type Policy Number Effective Date Expiration Date Shiv mcknight [facility] [id number] 2008 00:00:00 [facility] Medicare A & B [id number] 2006 00:00:00 [facility] Medicare A & B [id number] 2006 00:00:00 [facility] Employees [id number] 2008 00:00:[address] [facility] Medicare A & B [id number] 2006 00:00:00 [facility] Employees [id number] 2008 00:00:0 0 [facility] Medicare A & B [id number] 2006 00:00:00 C [facility] Employees [id number] 2008 00:00:0 0 [facility] Medicare A & B [id number] 2006 00:00:00 C [facility] Employees [id number] 2008 00:00:0 0 [facility] Medicare A & B [id number] 2006 00:00:00 C [facility] Employees [id number] 2008 00:00:[address] [facility] Medicare A & B [id number] 2006 00:00:00 C [facility] Employees [id number] 2008 00:00:0 0 [facility] Medicare A & B [id number] 2006 00:00:00 C [facility] Problems Condition Name Condition Details Condition Category Status Onset Date Resolution Date Last Treatment Date Treating Clinician Comments Source Anemia Anemia Problem Active 2015-08-14 00:00:00 [facility] Cellulitis Cellulitis Problem Active 2015-08-14 00:00:00 [facility] Knee pain, right Knee pain, right Problem Active 2015-08-14 00:00:00 [facility] Weakness Weakness Problem Active 2015-08-14 00:00:00 [facility] Chest pain Chest pain Problem Active [facility] Hepatic cirrhosis Cirrhosis Problem Active [facility] Hyperglycemia Hyperglycemia Problem Active [facility] Infected hardware in right lower extremity Infected hardware in right leg Problem Active [facility] Pneumonia Pneumonia Problem Active [facility] Tachycardia Tachycardia Problem Active [facility] Urinary tract infection UTI (urinary tract infection) Problem Active [facility] Volume depletion Volume depletion Problem Active [facility] Elevated troponin level Elevated troponin Problem Active [facility] Allergies, Adverse Reactions, Alerts Allergy Name Allergy Type Status Severity Reaction(s) Onset Date Inacti ve Date Treating Clinician Comments Source No Known Allergies DA Active U 2018-08-29 00:00:00 [facility] No Known Allergies DA Active U 2018-06-30 00:00:00 [facility] No Known Allergies DA Active U 2018-04-18 00:00:00 [facility] No Known Allergies DA Active U 2018-04-07 00:00:00 [facility] No Known Allergies DA Active U 2018-01-25 00:00:00 [facility] No Known Allergies DA Active U 2017-10-19 00:00:00 [facility] Morphine Allergy to Substance Active Moderate itching 2017-03-18 00:00:00 [facility] Medications Ordered Medication Name Filled Medication Name Start Date Stop Da te Current Medication? Ordering Clinician Indication Dosage Frequency Signature (SIG) Comments Components Source Duloxetine Hcl (Cymbalta) 30 Mg Capsule. Duloxetine Hcl (Cymbalta) 30 Mg Capsule. Yes 60 Bedtime [facility] Ergocalciferol (Vitamin D2) (Vitamin D2) 50 Mcg Capsul e Ergocalciferol (Vitamin D2) (Vitamin D2) 50 Mcg Capsule Yes 1.25 Q Week [facility] Furosemide 40 Mg Tablet Furosemide 40 Mg Tablet Yes 40 Twice A Day [facility] Gabapentin 600 Mg Tablet Gabapentin 600 Mg Tablet Yes 600 Every 6 Hours [facility] Glimepiride 2 Mg Tablet Glimepiride 2 Mg Tablet Yes 2 Daily [facility] Lactulose 10 Gm/15 Ml Solution Lactulose 10 Gm/15 Ml Solution Yes 15 Twice A Day [facility] Pantoprazole Sodium (Protonix) 40 Mg Tablet. Pantopr azole Sodium (Protonix) 40 Mg Tablet. Yes 40 Daily [facility] Potassium Chloride 10 Meq Tablet.er Potassium Chloride 10 Meq Tablet. er Yes 10 Twice A Day [facility] Propranolol Hcl 60 Mg Cap.sa.24h Propranolol Hcl 60 Mg Cap.sa.24h Yes 10 Twice A Day [facility] Rifaximin (Xifaxan) 550 Mg Tablet Rifaximin (Xifaxan) 550 Mg Tablet Yes 550 Twice A Day [facility] Spironolactone 25 Mg Tablet Spironolactone 25 Mg Tablet Yes 25 Twice A Day [facility] Sucralfate 1 Gm Tablet Sucralfate 1 Gm Tablet Yes 1 Every 6 Hours [facility] Trazodone Hcl 50 Mg Tablet Trazodone Hcl 50 Mg Tablet Yes 300 Bedtime [facility] Liraglutide (Victoza 2-Elias) 0.6 Mg/0.1 Ml Pen.injctr, 18 Mg Sub-Q Liraglutide (Victoza 2-Elias) 0.6 Mg/0.1 Ml Pen.injctr, 18 Mg Sub-Q 2019-04-15 00:00:00 No 18 Bedtime [facility] Metoprolol Tartrate (Lopressor) 25 Mg Tab, 25 Mg Oral Metoprolol Tartrate (Lopressor) 25 Mg Tab, 25 Mg Oral 2019-04-15 00:00:00 No 25 Twice A Day [facility] Amlodipine Besylate 5 Mg Tablet, 5 Mg Oral Amlodipine Besylate 5 Mg Tablet, 5 Mg Oral 2019-02-07 00:00:00 No 5 Daily [facility] Tramadol Hcl (Ultram 50MG*) 50 Mg Tab, 50 Mg Oral Tram adol Hcl (Ultram 50MG*) 50 Mg Tab, 50 Mg Oral 2019-02-07 00:00:00 No 50 Every 6 Hours [facility] Amlodipine Besylate 5 Mg Tablet, 5 Mg Oral Amlodipine Besylate 5 Mg Tablet, 5 Mg Oral 2018-10-20 00:00:00 No 5 Daily [facility] Diphenhydramine Hcl (Benadryl) 25 Mg Capsule, 50 Diphe nhydramine Hcl (Benadryl) 25 Mg Capsule, 50 2018-10-20 00:00:00 No 50 Bedtim e [facility] Embrel , 50 Mg Embrel , 50 Mg 2018-10-20 00:00:00 No 50 Twice A Day [facility] Furosemide (Lasix) 40 Mg Tablet, 40 Mg Oral Furosemide (Lasix) 40 Mg Tablet, 40 Mg Oral 2018-10-20 00:00:00 No 40 Twice A Day [facility] Gabapentin 100 Mg Capsule, 600 Mg Oral Gabapentin 100 Mg Capsule , 600 Mg Oral 2018-10-20 00:00:00 No 600 Every 12 Hours [facility] Lactulose 20 Gm/30 Ml Solution, 30 Ml Oral Lactulose 2 0 Gm/30 Ml Solution, 30 Ml Oral 2018-10-20 00:00:00 No 30 Twice A Day [facility] Liraglutide (Victoza 3-Elias) 0.6 Mg/0.1 Ml Pen.injctr, 0.6 Mg Injection Liraglutide (Victoza 3-Elias) 0.6 Mg/0.1 Ml Pen.injctr, 0.6 Mg Injection 2018-10-20 00:00:00 No .6 Daily [facility] Otezla , Otezla , 2018-10-20 00:00:00 No [facility] Pantoprazole Sodium (Protonix) 40 Mg Tablet.dr, 40 Mg Oral Pantoprazole Sodium (Protonix) 40 Mg Tablet.dr, 40 Mg Oral 2018-10-20 00:00:00 No 40 Twice A Day [facility] Propranolol Hcl 20 Mg Tablet, Propranolol Hcl 20 Mg Tablet, 2018-10-20 00:00:00 No Daily [facility] Rifaximin (Xifaxan) 550 Mg Tablet, 550 Rifaximin (Xifaxan) 550 M g Tablet, 550 2018-10-20 00:00:00 No 550 Twice A Day [facility] Spironolactone 25 Mg Tablet, 25 Mg Oral Spironolactone 25 Mg Tablet, 25 Mg Oral 2018-10-20 00:00:00 No 25 Twice A Day [facility] Sucralfate 1 Gm Tablet, 1 Gm Oral Sucralfate 1 Gm Tablet, 1 Gm O ral 2018-10-20 00:00:00 No 1 Three Times A Day for Before Me als [facility] Tolterodine Tartrate (Detrol La) 4 Mg Cap.er.24h, 4 Mg Oral Tolterodine Tartrate (Detrol La) 4 Mg Cap.er.24h, 4 Mg Oral 2018-10-20 00:00:00 No 4 Bedtime [facility] Tramadol Hcl/Acetaminophen (Ultracet Tablet) 1 Each Ta blet, 1 Tab Oral Tramadol Hcl/Acetaminophen (Ultracet Tablet) 1 Each Tablet, 1 Tab Oral 2018-10-20 00:00:00 No 1 Every 6 Hours as needed for Iban n [facility] Trazodone Hcl 300 Mg Tablet, Trazodone Hcl 300 Mg Tablet, 2018-10-20 00:00:00 No Bedtime [facility] Victoza , 6 Units Victoza , 6 Units 2018-10-20 00:00:00 No 6 Daily [facility] Amlodipine Besylate (Norvasc) 5 Mg Tab, 5 Mg Oral Amlo dipine Besylate (Norvasc) 5 Mg Tab, 5 Mg Oral 2018-10-11 00:00:00 No 5 Srini y [facility] Furosemide (Lasix) 40 Mg Tablet, 40 Mg Oral Furosemide (Lasix) 40 Mg Tablet, 40 Mg Oral 2018-10-11 00:00:00 No 40 Twice A Day [facility] Hydrocodone , 500 Mg Hydrocodone , 500 Mg 2018-10-07 00:00:00 No 500 Daily [facility] Trazodone Hcl 50 Mg Tablet, 100 Mg Oral Trazodone Hcl 50 Mg Tablet, 100 Mg Oral 2018-10-07 00:00:00 No 100 Bedtime [facility] Zantac , Zantac , 2018-10-07 00:00:00 No As Need ed [facility] Pantoprazole Sodium (Protonix) 40 Mg Tablet.dr, 40 Mg Oral Pantoprazole Sodium (Protonix) 40 Mg Tablet.dr, 40 Mg Oral 2016-11-05 00:00:00 No 40 Daily [facility] Acetaminophen With Codeine (Tylenol With Codeine #3 Tablet) 1 Each Tablet, 300 Mg Oral Acetaminophen With Codeine (Tylenol With Codeine #3 Tablet) 1 Each Tablet, 300 Mg Oral 2016-11-02 00:00:00 No 300 Twic e A Day [facility] Oxybutynin Chloride (Oxybutynin Chloride Er) 5 Mg Tab. er.24, 30 Mg Oral Oxybutynin Chloride (Oxybutynin Chloride Er) 5 Mg Tab.er.24, 30 Mg Oral 2016-11-02 00:00:00 No 30 Twice A Day [facility] Vilazodone Hydrochloride (Viibryd) 40 Mg Tablet, 40 Mg Oral Vilazodone Hydrochloride (Viibryd) 40 Mg Tablet, 40 Mg Oral 2016-11-02 00:00:00 No 40 Daily [facility] Tramadol Hcl (Ultram 50MG*) 50 Mg Tab, 50 Mg Oral Tram adol Hcl (Ultram 50MG*) 50 Mg Tab, 50 Mg Oral 2016-08-02 00:00:00 No 50 Every 8 Hours as needed for Pain [facility] Trazodone 40 Mg, 80 Mg Oral Trazodone 40 Mg, 80 Mg Oral 2016-05-28 00:00:00 No 80 Bedtime [facility] Oxybutynin , Oral Oxybutynin , Oral 2016-03-27 00:00:00 No Daily [facility] Victoza , Injection Victoza , Injection 2016-03-27 00:00:00 No Daily [facility] Colestipol Hcl,Micronized (Colestipol Hcl) 1 Gm Tablet , 1 Gm Oral Colestipol Hcl,Micronized (Colestipol Hcl) 1 Gm Tablet, 1 Gm Oral 2015-12-30 1 00:00:00 No 1 Daily [facility] Etanercept (Enbrel) 25 Mg Kit, Injection Etanercept (Enbrel) 25 Mg Kit, Injection 2016-01-09 00:00:00 No 2XWK [facility] Gabapentin 100 Mg Capsule, 100 Mg Oral Gabapentin 100 Mg Capsule , 100 Mg Oral 2016-01-09 00:00:00 No 100 Twice A Day [facility] Mirabegron (Myrbetriq) 50 Mg Tab.er.24h, 50 Mg Oral Mi rabegron (Myrbetriq) 50 Mg Tab.er.24h, 50 Mg Oral 2016-01-09 00:00:00 No 50 D aily [facility] Trazodone Hcl 50 Mg Tablet, 50 Mg Oral Trazodone Hcl 50 Mg Table t, 50 Mg Oral 2016-01-09 00:00:00 No 50 Bedtime [facility] Victoza , Victoza , 2016-01-09 00:00:00 No Daily [facility] Oxybutynin Chloride (Oxybutynin Chloride Er) 10 Mg Tab .er.24, 10 Mg Oral Oxybutynin Chloride (Oxybutynin Chloride Er) 10 Mg Tab.er.24, 10 Mg Oral 2015-09-22 00:00:00 No 10 Daily [facility] Pregabalin (Lyrica) 50 Mg Cap, 50 Mg Oral Pregabalin ( Lyrica) 50 Mg Cap, 50 Mg Oral 2015-09-22 00:00:00 No 50 Bedtime [facility] Sertraline Hcl 50 Mg Tablet, 50 Mg Oral Sertraline Hcl 50 Mg Tablet, 50 Mg Oral 2015-09-22 00:00:00 No 50 Daily [facility] Tramadol/Acetaminophen (Tramadol-Acetaminophn 37.5-325 ) 1 Ea Tab, 1 Tab Oral Tramadol/Acetaminophen (Tramadol-Acetaminophn 37.5-325) 1 Ea Tab, 1 Tab Oral 2015-09-22 00:00:00 No 1 As Needed [facility] Victoza , Oral Victoza , Oral 2015-09-22 00:00:00 No Daily [facility] Alprazolam 0.5 Mg Tablet, 0.5 Mg Oral Alprazolam 0.5 Mg Tablet, 0.5 Mg Oral 2015-01-29 00:00:00 No .5 Tid Prn [facility] Famotidine (Pepcid) 20 Mg Tablet, 20 Mg Oral Famotidin e (Pepcid) 20 Mg Tablet, 20 Mg Oral 2015-01-29 00:00:00 No 20 Daily [facility] Hydrocodone Bit/Acetaminophen (Azle 10-325 Tablet) 1 Each Tablet, 1 Tab Oral Hydrocodone Bit/Acetaminophen (Azle 10-325 Tablet) 1 Each Tablet, 1 Tab Oral 2015-01-29 00:00:00 No 1 Q6 Prn [facility] Hydroxyzine Hcl 25 Mg Tablet, 25 Mg Oral Hydroxyzine H cl 25 Mg Tablet, 25 Mg Oral 2015-01-29 00:00:00 No 25 Q6 Prn [facility] Trazodone Hcl 50 Mg Tablet, 50 Mg Oral Trazodone Hcl 50 Mg Table t, 50 Mg Oral 2015-01-29 00:00:00 No 50 Daily [facility] Triamcinolone (Triamcinolone Acetonide) 15 Gm Oint, Topically Triamcinolone (Triamcinolone Acetonide) 15 Gm Oint, Topically 2015-01-29 00:00:00 No Twice A Day [facility] Rivaroxaban (Xarelto) 10 Mg Tablet, 10 Mg Oral Rivarox aban (Xarelto) 10 Mg Tablet, 10 Mg Oral 2013-06-13 00:00:00 No 10 Daily [facility] Procedures Procedure Date / Time Performed Performing Clinician [facility] X-ray of chest, two views 2019-03-20 [facility] DESTRUCTION OF STOMACH, PYLORUS, ENDO 2019-03-03 00:00:00 GERSON MESSINA [facility] US abdomen complete 2019-03-02 00:00:00 DAYO EDOUARD [facility] TRANSFUSE NONAUT RED BLOOD CELLS IN PERIPH VEIN, PERC 03-01 00:00:00 ABDULLAHI MEYER [facility] EGD LESION ABLATION 2019-02-09 00:00:00 GERSON MESSINA [facility] BLOOD TRANSFUSION SERVICE 2019-01-22 00:00:00 NEIDA CASTAÑEDA [facility] US Abdomen limited 2018-12-01 00:00:00 JOHN LOPEZ [facility] BLOOD TRANSFUSION SERVICE 2018-10-20 00:00:00 HAMIDA STEVENSON [facility] INSPECTION OF UPPER INTESTINAL TRACT, ENDO 2018-10-10 00:00:00 H GERSON EMANUEL [facility] TRANSFUSE NONAUT RED BLOOD CELLS IN PERIPH ART, OPEN 2018-09 00:00:00 GERSON MESSINA [facility] Computed tomography of brain without radiopaque contrast 201 11-05-08 00:00:00 INGRID ZHENG [facility] Encounters Start Date/Time End Date/Time Encounter Type Admission Type Attendi ng Clinicians Care Facility Care Department Encounter ID Source 2019-04-15 09:11:00 2019-04-17 19:59:00 Discharged Inpatient 1 JOHN LOPEZ [facility] [id number] [facility] 2019-03-20 13:31:00 2019-03-20 13:31:00 Registered Clinic 3 JESSICA, LUIS [facility] [id number] [facility] 2019-03-01 17:07:00 2019-03-04 16:41:00 Discharged Inpatient 1 ABDULLAHI MEYER [facility] [id number] [facility] 2019-02-09 05:55:00 2019-02-09 05:55:00 Registered Surgical Day Care [facility] [id number] [facility] 2019-02-05 19:15:00 2019-02-05 23:01:00 Departed Emergency Room [facility] [id number] [facility] 2019-01-22 18:21:00 2019-01-23 14:50:00 Discharged Inpatient (obs) 1 NEIDA CASTAÑEDA [facility] [id number] [facility] 2019-01-12 07:49:00 2019-01-12 07:49:00 Registered Clinic 3 LUKASZ OWUSU [facility] [id number] [facility] 2018-12-01 10:41:00 2018-12-01 10:41:00 Registered Clinic 3 JESSICA [facility] [id number] [facility] 2018-10-20 20:50:00 2018-10-21 15:09:00 Discharged Inpatient (obs) [facility] [id number] [facility] 2018-10-06 19:15:00 2018-10-11 19:12:00 Discharged Inpatient 1 JOHN LOPEZ [facility] [id number] [facility] 2018-05-11 15:32:00 2018-05-16 11:10:00 Discharged Inpatient [facility] [id number] [facility] 2018-03-06 17:05:00 2018-03-06 17:05:00 Registered Clinic [facility] [id number] [facility] 2017-07-28 23:06:00 2017-08-02 17:44:00 Discharged Inpatient 1 JESSICA [facility] [id number] [facility] 2017-03-18 13:21:00 2017-03-18 16:35:00 Departed Emergency Room [facility] [id number] [facility] 2017-02-02 14:34:00 2017-02-14 19:14:00 Discharged Inpatient ER JESSICA [facility] [id number] [facility] 2016-12-28 12:38:00 2016-12-29 16:38:00 Discharged Inpatient ER JESSICA [facility] [id number] [facility] 2016-11-08 23:19:00 2016-11-11 20:15:00 Discharged Inpatient ER JESSICA [facility] [id number] [facility] 2016-11-02 12:04:00 2016-11-05 17:44:00 Discharged Inpatient (obs) ER JESSICA [facility] [id number] [facility] 2016-11-02 05:00:00 2016-11-02 05:00:00 Registered [facility] [id number] [facility] Results Test Description Test Time Test Comments Results Result Comments Source CT BRAIN WO 2019-07-20 19:34:00 [place] [address] Patient Name: ALEX STANTON MR #: [id number] : 1950 Age/Sex: 68/F Req #: [id number] Adm Physician: Ordered by: INGRID ZHENG NP Report #: [id number] Location: ER Room/Bed: Procedure: [id number] CT/CT BRAIN WO Exam Date: 07/20/19 Exam Time: 1849 REPORT STATUS: Signed History:AMS Comparison studies:None Technique: Axial images were obtained from the skull base to the vertex. Coronal and sagittal images reconstructed from the axial data. Intravenous contrast: None Dose modulation, iterative reconstruction, and/or weight based adjustment of the mA/kV was utilized to reduce the radiation dose to as low as reasonably achievable. Findings: Motion artifact limits evaluation in some of the images. Scalp/skull: No abnormalities. Extra-axial spaces: No masses. No fluid collections. Brain sulci: Mildly prominent. Ventricles: Age-appropriate. No hydrocephalus. Parenchyma: No abnormal densities. No masses, hemorrhage, acute or chronic cortical vascular insults. Sellar/suprasellar region: No abnormalities. Craniocervical junction: Patent foramen magnum. No Chiari one malformation. Incidental findings: Atherosclerotic calcifications in the carotid siphons . Impression: No acute abnormalities. Signed by: DR Zeeshan Mathias M.D. on 07/20/2019 7:38 PM Dictated By: ZEESHAN RANDALL MD 37 Transcribed By: NIRMALA on 07/20/191937 COPY TO: INGRID ZHENG NP CHEST SINGLE (PORTABLE) 2019-07-20 19:24:00 [place] [address] Patient Name: ALEX STANTON MR #: [id number] : 1950 Age/Sex: 68/F Req #: [id number] Adm Physician: Ordered by: INGRID ZHENG 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 OPERATOR Report #: [id number] Location: ER Room/Bed: Procedure: [id number] DX/CHEST SINGLE (PORTABLE) Exam Date: 07/20/19 Exam Time: 1849 REPORT STATUS: Signed Examination: Single AP view of the chest. COMPARISON: Portable chest 04/15/2019 INDICATION: Shortness of breath IMPRESSION: 1. Lines and Tubes: None 2. Markedly hypoinflated lungs. Stable elevation of the right hemidiaphragm, which may be due to eventration. No definite consolidation or effusion. 3. Prominence of the cardiac silhouette and central pulmonary vascular crowding due to low lung volumes. 4. No acute bony abnormalities. Signed by: Dr. Girma Morris M.D. on 07/20/2019 7:26 PM Dictated By: GIRMA MORRIS MD 25 Transcribed By: NIRMALA on 07/20/191925 COPY TO: INGRID ZHENG 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 OPERATOR MRI ABDOMEN WOW 2019-07-20 14:12:00 [place] [address] Patient Name: ALEX STANTON MR #: [id number] : 1950 Age/Sex: 68/F Req #: [id number] Adm Physician: Ordered by: JOHN LOPEZ MD Report #: [id number] Location: MRI Room/Bed: Procedure: [id number] MRI/MRI ABDOMEN WOW Exam Date: Exam Time: [...] 2:22 PM Dictated By: TICO THOMAS MD 142 Transcribed By: NIRMALA on 07/20/19 142 COPY TO: JOHN LOPEZ MD - ABDOMEN COMPLETE 2019-05-25 13:25:00 Name : ALEX STANTON [facility] : 1950 Age/S: 68 / F [address] [facility] Unit #: [id number] Loc: [place] [address] Phys: Virgilio Ram MD Acct: [id number] Dis Date: Status: REG CLI PHONE #: [phone] Exam Date: 05/25/2019 1245 FAX #: [phone] Reason: CIRRHOSIS OF LIVER EXAMS: CPT CODE: [id number] US ABDOMEN COMPLETE 21122 REASON FOR EXAM: CIRRHOSIS OF LIVER EXAM [...] 1 Signed Report (CONTINUED) Name: ALEX STANTON [facility] : 1950 Age/S: 68 / F [address] [facility] Unit #: [id number] Loc: [place] [address] Phys: Virgilio Ram MD Acct: [id number] Dis Date: Status: REG CLI PHONE #: [phone] Exam Date: 05/25/2019 1245 FAX #: [phone] Reason: CIRRHOSIS OF LIVER EXAMS: CPT CODE: [id number] US ABDOMEN COMPLETE 15742 <Continued> cysts/masses: none hydronephrosis: none Spleen: size: 12.2 x 7.0 x 6.6 cm cysts/masses: Parenchyma is sonographically unremarkable. Ascites/pleural effusions: None IMPRESSION: Cirrhotic liver. Splenomegaly. This may be due to portal venous hypertension secondary to patient's cirrhosis. Location: [facility] at 1325 Reported and signed by: Dick Junior MD CC: Virgilio Ram MD; John Lopez Technologist: Montserrat Torres RDMS Trnscb Date/Time: 05/25/2019 (1325) [id number] Orig Print D/T: S: 05/25/2019 (1117) Probe: PAGE 2 Signed Report SMALL BOWEL SERIES 2019-04-17 16:07:00 [place] [address] Patient Name: ALEX STANTON MR #: [id number] : 1950 Age/Sex: 68/F Req #: [id number] Adm Physician: JOHN LOPEZ MD Ordered by: GERSON MESSINA MD Report #: [id number] Location: MED/SURG Room/Bed: [facility] Procedure: [id number] DX/SMALL BOWEL SERIES Exam Date: 04/17/19 Exam Time: 1535 REPORT STATUS: Signed FLUOROSCOPIC SMALL BOWEL SERIES SOFTWARE RELEASE ENGINEER(S): Mayra Viramontes MD Indication: Anemia Comparison: None. [...] 4:09 PM Dictated By: MAYRA VIRAMONTES MD 160 Transcribed By: NIRMALA on 04/17/19 160 COPY TO: GERSON MESSINA MD Bedside Glucose 2019-04-17 08:28:00 Test Item Bedside Glucose (test code = 47432-5) 152 70-120 Meter ID: [id number] [facility] I [id number] 15:12:00 [place] [address] Patient Name: ALEX STANTON MR #: [id number] : 1950 Age/Sex: 68/F Req #: [id number] Adm Physician: JOHN LOPEZ MD Ordered by: GERSON MESSINA MD Report #: [id number] Location: MED/SURG Room/Bed: [facility] Procedure: [id number] NM/G I BLEED Exam Date: 04/16/19 Exam [...] Count (test code = 6690-2) 3.72 4.8-10.8 [id number] 10:46:00* Test Item Value Reference Range Interpretation Comments Red Blood Count (test code = 789-8) 2.82 3.6-5.1 [facility] 10:46:00* Test Item Value Reference Range Interpretation Comments Hemoglobin (test code = 44778-2) 7.6 12.0-16.0 [facility] 10:46:00* Test Item Value Reference Range Interpretation Comments Hematocrit (test code = 4544-3) 25.0 34.2-44.1 [facility]evilleMean Corpuscular Vhwfuy8098-64-04 10:46:00* Test Item Value Reference Range Interpretation Comments Mean Corpuscular Volume (test code = 787-2) 88.7 81-99 [facility]evilleMean Corpuscular Kimzolatar7508-98-08 10:46:00* Test Item Value Reference Range Interpretation Comments Mean Corpuscular Hemoglobin (test code = 785-6) 27.0 28-32 [facility] Concent 2019-04-16 10:46:00* Test Item Value Reference Range Interpretation Comments Mean Corpuscular Hemoglobin Concent (test code = 786-4) 30.4 31-35 [facility]evilleRed Cell Distribution Gwoad6791-04-96 10:46:00* Test Item Value Reference Range Interpretation Comments Red Cell Distribution Width (test code = 27816-1) 18.1 11.7 -14.4 [facility] BeevillePlatelet Ystsd7617-73-47 10:46:00* Test Item Value Reference Range Interpretation Comments Platelet Count (test code = 777-3) 61 140-360 [facility]evilleNeutrophils (%) (Auto)2019-04-16 10:46:00 * Test Item Value Reference Range Interpretation Comments Neutrophils (%) (Auto) (test code = 61296-2) 60.0 38.7-80.0 [facility]evilleLymphocytes (%) (Auto)2019-04-16 10:46:00 * Test Item Value Reference Range Interpretation Comments Lymphocytes (%) (Auto) (test code = 736-9) 16.9 18.0-39.1 [facility]evilleMonocytes (%) (Auto)2019-04-16 10:46:00* Test Item Value Reference Range Interpretation Comments Monocytes (%) (Auto) (test code = 5905-5) 9.9 4.4-11.3 [facility]evilleEosinophils (%) (Auto)2019-04-16 10:46:00 * Test Item Value Reference Range Interpretation Comments Eosinophils (%) (Auto) (test code = 713-8) 12.4 0.0-6.0 [facility]evilleBasophils (%) (Auto)2019-04-16 10:46:00* Test Item Value Reference Range Interpretation Comments Basophils (%) (Auto) (test code = 706-2) 0.5 0.0-1.0 [facility]evilleIM GRANULOCYTES %2019-04-16 10:46:00* Test Item Value Reference Range Interpretation Comments IM GRANULOCYTES % (test code = IM GRANULOCYTES %) 0.3 0.0- 1.0 [facility]evilleNeutrophils # (Auto)2019-04-16 10:46:00* Test Item Value Reference Range Interpretation Comments Neutrophils # (Auto) (test code = 751-8) 2.2 2.1-6.9 [facility]evilleLymphocytes # (Auto)2019-04-16 10:46:00* Test Item Value Reference Range Interpretation Comments Lymphocytes # (Auto) (test code = 58417-3) 0.6 1.0-3.2 [facility]evilleMonocytes # (Auto)2019-04-16 10:46:00* Test Item Value Reference Range Interpretation Comments Monocytes # (Auto) (test code = 742-7) 0.4 0.2-0.8 [facility]evilleEosinophils # (Auto)2019-04-16 10:46:00* Test Item Value Reference Range Interpretation Comments Eosinophils # (Auto) (test code = 711-2) 0.5 0.0-0.4 [facility]evilleBasophils # (Auto)2019-04-16 10:46:00* Test Item Value Reference Range Interpretation Comments Basophils # (Auto) (test code = 704-7) 0.0 0.0-0.1 [facility]evilleAbsolute Immature Granulocyte (auto 2019-04-16 10:46:00* Test Item Value Reference Range Interpretation Comments Absolute Immature Granulocyte (auto (natalya t code = Absolute Immature Granulocyte (auto) 0.01 0-0.1 [facility] Marshallodium Namug0382-68-56 07:01:00* Test Item Value Reference Range Interpretation Comments Sodium Level (test code = 2951-2) 138 136-145 [facility]evillePotassium Epwdr4223-15-34 07:01:00* Test Item Value Reference Range Interpretation Comments Potassium Level (test code = 2823-3) 3.9 3.5-5.1 [facility]evilleChloride Rmiub7001-08-98 07:01:00* Test Item Value Reference Range Interpretation Comments Chloride Level (test code = 2075-0) 104 98-107 [facility] BeevilleCarbon Dioxide Qswfb1072-28-35 07:01:00* Test Item Value Reference Range Interpretation Comments Carbon Dioxide Level (test code = 2028-9) 27 22-29 [facility] BeevilleAnion Roh3171-73-25 07:01:00* Test Item Value Reference Range Interpretation Comments Anion Gap (test code = 60988-0) 10.9 8-16 [facility]evilleBlood Urea Qbjlbnfb8251-27-50 07:01:00* Test Item Value Reference Range Interpretation Comments Blood Urea Nitrogen (test code = 3094-0) 12 7-26 [facility]evilleCreatinine2020-02-17 07:01:00* Test Item Value Reference Range Interpretation Comments Creatinine (test code = 2160-0) 0.78 0.57-1.11 [facility]evilleBUN/Creatinine Zokws7291-09-29 07:01:00* Test Item Value Reference Range Interpretation Comments BUN/Creatinine Ratio (test code = 3097-3) 15 6-25 [facility] BeevilleEstimat Glomerular Filtration Rate 2019-04-16 07:01:00* Test Item Value Reference Range Interpretation Comments Estimat Glomerular Filtration Rate (test code = 362899703) > 60 >60 Ranges were taken from the National Kidney Disease Education Program and the [facility] literature.Reference ranges:60 or greater: Ffxhjy51-11 ( for 3 consecutive months): Chronic kidney disease 15 or less: Kidney failureCHRISTUS Spohn Hospital BeevilleGlucose Ojrfu3451-21-75 07:01:00* Test Item Value Reference Range Interpretation Comments Glucose Level (test code = QBQ2871) 143 74-118 [facility] BeevilleCalcium Sgykd1162-32-07 07:01:00* Test Item Value Reference Range Interpretation Comments Calcium Level (test code = 11261-4) 7.9 8.4-10.2 [facility]evilleTotal Cftaczozs0580-50-86 07:01:00* Test Item Value Reference Range Interpretation Comments Total Bilirubin (test code = 1975-2) 1.7 0.2-1.2 [facility] BeevilleAspartate Amino Transf (AST/SGOT) 2019-04-16 07:01:00* Test Item Value Reference Range Interpretation Comments Aspartate Amino Transf (AST/SGOT) (test code = Aspartate Amino Transf (AST/SGOT)) 27 5-34 [facility] BeevilleAlanine Aminotransferase (ALT/SGPT) 2019-04-16 07:01:00* Test Item Value Reference Range Interpretation Comments Alanine Aminotransferase (ALT/SGPT) (test code = 1742-6) 17 0-55 [facility]evilleTotal Gzeyhad0433-32-05 07:01:00* Test Item Value Reference Range Interpretation Comments Total Protein (test code = 2885-2) 5.6 6.5-8.1 [facility] BeevilleAlbumin2020-02-17 07:01:00* Test Item Value Reference Range Interpretation Comments Albumin (test code = 1751-7) 2.4 3.5-5.0 [facility] BeevilleGlobulin2020-02-17 07:01:00* Test Item Value Reference Range Interpretation Comments Globulin (test code = 99547-6) 3.2 2.3-3.5 [facility] BeevilleAlbumin/Globulin Gbnud2702-15-67 07:01:00 * Test Item Value Reference Range Interpretation Comments Albumin/Globulin Ratio (test code = 1759-0) 0.8 0.8-2.0 [facility] BeevilleAlkaline Vixpxstyqke3427-02-99 07:01:00* Test Item Value Reference Range Interpretation Comments Alkaline Phosphatase (test code = 6768-6) 148 40-150 [facility] BeevilleAmmonia2020-02-17 06:49:00* Test Item Value Reference Range Interpretation Comments Ammonia (test code = 83435-5) 96 31-123 [facility] BeevilleVitamin B12 Uuthh0151-42-26 10:15:00* Test Item Value Reference Range Interpretation Comments Vitamin B12 Level (test code = 22032-5) 1143 213-816 [facility] BeevilleFolate2020-02-16 10:15:00* Test Item Value Reference Range Interpretation Comments Folate (test code = 2284-8) 11.7 7.0-15.4 [facility] BeevilleFerritin2020-02-16 10:02:00* Test Item Value Reference Range Interpretation Comments Ferritin (test code = 2276-4) 12.18 4.63-204.00 [facility] BeevilleIron Gnvuo3989-92-69 09:39:00* Test Item Value Reference Range Interpretation Comments Iron Level (test code = 2498-4) 61 50-170 [facility]evilleTotal Iron Binding Wtuvyffr2569-04-21 09:39:00* Test Item Value Reference Range Interpretation Comments Total Iron Binding Capacity (test code = 2500-7) 489 261-4 78 [facility] BeevillePercent Iron Jbgsqlfdls6285-86-14 09:39:00* Test Item Value Reference Range Interpretation Comments Percent Iron Saturation (test code = 2502-3) 12 15-50 [facility] BeevilleTransferrin2020-02-16 09:39:00* Test Item Value Reference Range Interpretation Comments Transferrin (test code = 3034-6) 349 180-382 [facility] BeevilleCHEST SINGLE (PORTABLE)2019-04-15 09:34:00 [facility] [address] [address] Patient Name: ALEX STANTON MR #: [id number] : 1950 Age/Sex: 68/F Req #: [id number] Adm Physician: JOHN LOPEZ MD Ordered by: GLORIA CALIX MD Report #: [id number] Location: [facility] Room/Bed: [place] [address] Procedure: [id number] D X/CHEST SINGLE (PORTABLE) Exam Date: 04/15/19 [...] 4 COPY TO: GLORIA CALIX MD Platelet Bjvxvllx5821-61-57 09:31:00* Test Item Value Reference Range Interpretation Comments Platelet Estimate (test code = 15283-5) MARKEDLY DECREASED [facility] BeevillePlatelet Morphology Fdlgazb8235-70-79 09:31:00* Test Item Value Reference Range Interpretation Comments Platelet Morphology Comment (test code = 07507-8) NO EDTA PLT CLUMP S [facility] BeevillePercent Reticulocyte Qqqmq4975-19-97 09:28:00* Test Item Value Reference Range Interpretation Comments Percent Reticulocyte Count (test code = 24689-9) 5.0 0.8-2 .2 [facility] BeevilleCreatine Kinase ZO8596-72-33 06:08:00* Test Item Value Reference Range Interpretation Comments Creatine Kinase MB (test code = 31068-5) 1.50 0-5.0 [facility] BeevilleTroponin H2339-31-15 06:08:00* Test Item Value Reference Range Interpretation Comments Troponin I (test code = FZS8440) < 0.001 0-0.300 [facility] BeevilleUrine Ifowv6262-14-16 02:48:00* Test Item Value Reference Range Interpretation Comments Urine Color (test code = 5778-6) YELLOW YELLOW [facility] BeevilleUrine Uzjcxyf8802-27-42 02:48:00* Test Item Value Reference Range Interpretation Comments Urine Clarity (test code = 80905-7) CLEAR CLEAR [facility] BeevilleUrine Specific Vicnoeg7515-70-01 02:48:00 * Test Item Value Reference Range Interpretation Comments Urine Specific [place] (test code = 5811-5) 1.025 1.010-1.02 5 [facility] BeevilleUrine kR6557-52-52 02:48:00* Test Item Value Reference Range Interpretation Comments Urine pH (test code = 82869-7) 6 5-7 [facility] BeevilleUrine Leukocyte Mybvpgcm9323-55-76 02:48:00* Test Item Value Reference Range Interpretation Comments Urine Leukocyte Esterase (test code = 5799-2) NEGATIVE NEGATIVE [facility] BeevilleUrine Uotxpiz5098-92-95 02:48:00* Test Item Value Reference Range Interpretation Comments Urine Nitrite (test code = 72058-0) NEGATIVE NEGATIVE [facility] BeevilleUrine Yoyldhd9105-84-46 02:48:00* Test Item Value Reference Range Interpretation Comments Urine Protein (test code = 5804-0) NEGATIVE NEGATIVE [facility] BeevilleUrine Glucose (UA)2019-04-15 02:48:00* Test Item Value Reference Range Interpretation Comments Urine Glucose (UA) (test code = 2349-9) 3+ NEGATIVE [facility] BeevilleUrine Mpxatyf3445-05-09 02:48:00* Test Item Value Reference Range Interpretation Comments Urine Ketones (test code = 65019-3) NEGATIVE NEGATIVE [facility] BeevilleUrine Zapfjvfuencb9616-84-65 02:48:00* Test Item Value Reference Range Interpretation Comments Urine Urobilinogen (test code = 05298-6) 0.2 0.2-1 [facility]evilleUrine Rcgfciaem5853-49-72 02:48:00* Test Item Value Reference Range Interpretation Comments Urine Bilirubin (test code = 1978-6) NEGATIVE NEGATIVE [facility] BeevilleUrine Fysnx2842-78-25 02:48:00* Test Item Value Reference Range Interpretation Comments Urine Blood (test code = 75355-5) TRACE NEGATIVE [facility] BeevilleUrine MYS1398-24-31 02:48:00* Test Item Value Reference Range Interpretation Comments Urine WBC (test code = 5821-4) 0-5 0-5 [facility] BeevilleUrine POY2699-93-73 02:48:00* Test Item Value Reference Range Interpretation Comments Urine RBC (test code = 62677-7) 6-10 0-5 [facility]evilleUrine Aeibefju8570-88-80 02:48:00* Test Item Value Reference Range Interpretation Comments Urine Bacteria (test code = 86076-6) FEW NONE [facility] BeevilleUrine Epithelial Edamp4724-27-35 02:48:00 * Test Item Value Reference Range Interpretation Comments Urine Epithelial Cells (test code = 09694-2) FEW NONE [facility] BeevilleB-Type Natriuretic Cyjwwrx7269-85-06 02:08:00* Test Item Value Reference Range Interpretation Comments B-Type Natriuretic Peptide (test code = 98309-8) < 10.0 0-100 [facility] BeevilleArterial Blood mL1334-71-15 02:06:00* Test Item Value Reference Range Interpretation Comments Arterial Blood pH (test code = 2744-1) 7.38 7.31-7.41 [facility] BeevilleArterial Blood Partial Pressure CO2 2019-04-15 02:06:00* Test Item Value Reference Range Interpretation Comments Arterial Blood Partial Pressure CO2 (test code = 2019-8) 50 41-51 [facility] BeevilleArterial Blood Partial Pressure O2 2019-04-15 02:06:00* Test Item Value Reference Range Interpretation Comments Arterial Blood Partial Pressure O2 (test code = 2019-8) 66 80-105 [facility] BeevilleArterial Blood AOI99321-23-29 02:06:00* Test Item Value Reference Range Interpretation Comments Arterial Blood HCO3 (test code = 1960-4) 30 23-28 [facility] BeevilleArterial Blood Base Uzhwzw6890-88-96 02:06:00* Test Item Value Reference Range Interpretation Comments Arterial Blood Base Excess (test code = 1925-7) 4.0 -2-3 [facility]evilleArterial Blood Oxygen Saturation 2019-04-15 02:06:00* Test Item Value Reference Range Interpretation Comments Arterial Blood Oxygen Saturation (test code = 2708-6) 92.0 95-98 [facility] BeevilleFiO22020-02-16 02:06:00* Test Item Value Reference Range Interpretation Comments FiO2 (test code = FiO2) 21 Pt was on room air when ABG was drawnCHRISTUS [facility]eville Creatine Pfvwfh4021-17-19 01:44:00* Test Item Value Reference Range Interpretation Comments Creatine Kinase (test code = 2157-6) 44 29-168 [facility] BeevilleCHEST 2 QEAAN6041-67-63 14:17:00 [facility] [address] [address] Patient Name: ALEX STANTON MR #: [id number] : 1950 Age/Sex: 68/F Req #: [id number] Adm Physician: Ordered by: JOHN LOPEZ MD Report #: [id number] Location: [facility] Room/Bed: Procedure: [id number] DX /CHEST 2 VIEWS Exam Date: 03/20/19 [...] on 03/20/191418 COPY TO: JOHN LOPEZ MD Pstrukgrouv0305-37-83 23:21:00* Test Item Value Reference Range Interpretation Comments Haptoglobin (test code = 4542-7) <10 37-355 Please note reference interval changePerformed at: - Lab[address] [id number] Director: Kamaljit dugan MD, Phone: [phone] [facility]ohn Hospital BeevilleAnti- Mitochondrial Ewfxmjbc2499-09-37 23:21:00* Test Item Value Reference Range Interpretation Comments Anti-Mitochondrial Antibody (test code = 12746-2) <20.0 0.0- 20.0 Negative 0.0 - 20.0 Equivocal 20.1 - 24.9 Positive > 24.9Mitochondrial (M2) Antibodies are found in 90-96% ofpatients with primary bi liary cirrhosis.Performed at: - LabCo[address] [id number] Director: Kamaljit Wagner MD, Phone: [phone] [facility]2020-01-05 01:59:00* Test Item Value Reference Range Interpretation Comments Folate (test code = 2284-8) 7.0 >3.0 A serum folate concentration of less than 3.1 ng/mL isconsidered to represent cl inical deficiency.Performed at: - [facility]Co[address] [id number] Director: Lawson Jalloh MD, Phone: [phone] [facility] Marshalltool Occult Lgeyu0655-95-53 12:47:00* Test Item Value Reference Range Interpretation Comments Stool Occult Blood (test code = 2335-8) POSITIVE NEGATIVE [facility] AQHRIEJC0402-66-77 17:55:00 [address] [place] [address] Patient Name: ALEX STANTON MR #: [id number] : 1950 Age/Sex: 68/F Req #: [id number] [facility] Physician: ABDULLAHI MEYER MD Ordered by: DAYO EDOUARD Report #: [id number] Location: MED/SURG Room/Bed: [facility] Procedure: [id number] US/US ABDOMEN COMPLETE Exam Date: 03/02/19 Exam [...] on 03/02/191756 COPY TO: DAYO EDOUARD Prothrombin Fxou3221-03-76 17:24:00* Test Item Value Reference Range Interpretation Comments Prothrombin Time (test code = 5902-2) 14.6 11.9-14.5 [facility] BeevilleProthromb Time International Ratio 2019-03-02 17:24:00* Test Item Value Reference Range Interpretation Comments Prothromb Time International Ratio (test code = 6301-6) 1.09 Oral Anticoagulant Therapy INR Values:1. Low Intensity Therapy 1.5 - 2.02 . Moderate Intensity Therapy 2.0 - 3.03. High Intensity Therapy(1) 2.5 - 3. 54. High Intensity Therapy(2) 3.0 - 4.05. Panic Value INR > 5.0 [facility] BeevilleLactate Mgfxusajqxiqb9070-74-00 11:41:00 * Test Item Value Reference Range Interpretation Comments Lactate Dehydrogenase (test code = 446007838) 191 125-220 [facility] BeevilleActivated Partial Thromboplast Time 2019-02-08 13:28:00* Test Item Value Reference Range Interpretation Comments Activated Partial Thromboplast Time (test code = 69178-8) 30.0 23.8-35.5 [facility]evilleCHEST SINGLE (PORTABLE)2019-01-22 17:28:00 [address] [place] [address] Patient Name: ALEX STANTON MR #: [id number] : 1950 Age/Sex: 68/F Req #: [id number] Adm Physician: Ordered by: NEIDA CASTAÑEDA MD Report #: [id number] Location: Room/Bed: Procedure: [id number] DX/CHEST SINGLE (PORTABLE) Exam Date: 01/22/19 Exam [...] 01/22/191728 COPY TO: NEIDA FLORES MD Amylase Lgfnd7748-36-70 17:24:00* Test Item Value Reference Range Interpretation Comments Amylase Level (test code = 1798-8) 63 25-125 [facility] BeevilleLipase2019-11-25 17:24:00* Test Item Value Reference Range Interpretation Comments Lipase (test code = 3040-3) 27 8-78 [facility] Marshalltress Test - Treadmill TKXR7048-91-02 14:26:00 [facility] [address] [place], [place] [address] Patient Name : ALEX STANTON MR #: [id number] : 1950 Age/Sex: 68/F Adm Physician : LUKASZ OWUSU MD Admit Date : 01/12/19 Location : [place] Room/Bed : REPORT: Myoview Stress Te st [...] 66%. DO DULCE MARIA Orourke/LUPIS D: 14:26:54 /[id number] Signature Date Dictated By: RASHEL COREY DO Transcribed By: LUPIS on 01/12/19 <Electronically signed by RASHEL COREY DO><<Signature on File>> 01/18/191943 COPY TO: [id number] 12:02:00* Test Item Value Reference Range Interpretation Comments GLUBED (test code = GLUBED) 134 mg/dL 74-106 H Performed by certified tankage grinder operator at [facility] CBC W/AUTO UXKV2303-50-13 08:24:00* Test Item Value Reference Range Interpretation [...] = MDIFF) NO, ONLY SCAN NEEDED DIFFERENTIAL EVZQ2191-98-65 08:24:00* Test Item Value Reference Range Interpretation Comments STAIN ACCEPTABILITY (test code = STN ACCEPTABLE) STAIN ACCEPTABLE ANISOCYTOSIS (test code = ANISO) 1+ MACROCYTOSIS (test code = MACR) 1+ PLATELET ESTIMATE (test code = PLTEST) DECREASED PLATELET MORPHOLOGY (test code = PLTMORPH) NORMAL CBC W/AUTO EQPQ7570-67-33 07:55:00* Test Item Value Reference Range Interpretation [...] = MDIFF) NO, ONLY SCAN NEEDED DIFFERENTIAL NFBY1732-75-82 07:55:00* Test Item Value Reference Range Interpretation Comments STAIN ACCEPTABILITY (test code = STN ACCEPTABLE) MORPHOLOGY COMMENT (test code = MOC) PLATELET ESTIMATE (test code = PLTEST) PLATELET MORPHOLOGY (test code = PLTMORPH) CBC W/AUTO CDBG7549-28-44 07:53:00* Test Item Value Reference Range Interpretation [...] = MDIFF) NO, ONLY SCAN NEEDED DIFFERENTIAL YHVR9908-42-12 07:53:00* Test Item Value Reference Range Interpretation Comments STAIN ACCEPTABILITY (test code = STN ACCEPTABLE) CABOT RINGS (test code = CAB) MORPHOLOGY COMMENT (test code = MOC) PLATELET ESTIMATE (test code = PLTEST) PLATELET MORPHOLOGY (test code = PLTMORPH) CBC W/AUTO [id number] 07:53:00* Test Item Value Reference Range Interpretation [...] = MDIFF) NO, ONLY SCAN NEEDED DIFFERENTIAL KECG9691-22-37 07:53:00* Test Item Value Reference Range Interpretation Comments STAIN ACCEPTABILITY (test code = STN ACCEPTABLE) MORPHOLOGY COMMENT (test code = MOC) PLATELET ESTIMATE (test code = PLTEST) PLATELET MORPHOLOGY (test code = PLTMORPH) CBC W/AUTO RCYM9389-70-14 07:53:00* Test Item Value Reference Range Interpretation [...] = MDIFF) NO, ONLY SCAN NEEDED DIFFERENTIAL MUHC0555-59-50 07:53:00* Test Item Value Reference Range Interpretation Comments STAIN ACCEPTABILITY (test code = STN ACCEPTABLE) CABOT RINGS (test code = CAB) MORPHOLOGY COMMENT (test code = MOC) PLATELET ESTIMATE (test code = PLTEST) PLATELET MORPHOLOGY (test code = PLTMORPH) IZSNCO8881-29-02 16:34:00* Test Item Value Reference Range Interpretation Comments GLUBED (test code = GLUBED) 105 mg/dL 74-106 N Performed by certified tankage grinder operator at [facility] NOPDRV9696-23-81 12:33:00* Test Item Value Reference Range Interpretation Comments GLUBED (test code = GLUBED) 145 mg/dL 74-106 H Performed by certified tankage grinder operator at [facility] CBC W/AUTO KBYI9003-00-77 07:31:00* Test Item Value Reference Range Interpretation [...] = MDIFF) NO, ONLY SCAN NEEDED DIFFERENTIAL [id number] 07:31:00* Test Item Value Reference Range Interpretation Comments STAIN ACCEPTABILITY (test code = STN ACCEPTABLE) STAIN ACCEPTABLE ANISOCYTOSIS (test code = ANISO) 1+ MACROCYTOSIS (test code = MACR) 1+ PLATELET ESTIMATE (test code = PLTEST) DECREASED PLATELET MORPHOLOGY (test code = PLTMORPH) NORMAL MLNOLD9929-97-09 05:51:00* Test Item Value Reference Range Interpretation Comments GLUBED (test code = GLUBED) 106 mg/dL 74-106 N Performed by certified tankage grinder operator at [facility] CBC W/AUTO AWKH5316-28-55 05:12:00* Test Item Value Reference Range Interpretation [...] = MDIFF) NO, ONLY SCAN NEEDED DIFFERENTIAL [id number] 05:12:00* Test Item Value Reference Range Interpretation Comments STAIN ACCEPTABILITY (test code = STN ACCEPTABLE) CABOT RINGS (test code = CAB) MORPHOLOGY COMMENT (test code = MOC) PLATELET ESTIMATE (test code = PLTEST) PLATELET MORPHOLOGY (test code = PLTMORPH) CBC W/AUTO [id number] 05:12:00* Test Item Value Reference Range Interpretation [...] = MDIFF) NO, ONLY SCAN NEEDED DIFFERENTIAL [id number] 05:12:00* Test Item Value Reference Range Interpretation Comments STAIN ACCEPTABILITY (test code = STN ACCEPTABLE) MORPHOLOGY COMMENT (test code = MOC) PLATELET ESTIMATE (test code = PLTEST) PLATELET MORPHOLOGY (test code = PLTMORPH) CBC W/AUTO [id number] 05:11:00* Test Item Value Reference Range Interpretation [...] = MDIFF) NO, ONLY SCAN NEEDED DIFFERENTIAL [id number] 05:11:00* Test Item Value Reference Range Interpretation Comments STAIN ACCEPTABILITY (test code = STN ACCEPTABLE) CABOT RINGS (test code = CAB) MORPHOLOGY COMMENT (test code = MOC) PLATELET ESTIMATE (test code = PLTEST) PLATELET MORPHOLOGY (test code = PLTMORPH) CBC W/AUTO [id number] 05:11:00* Test Item Value Reference Range Interpretation [...] = MDIFF) NO, ONLY SCAN NEEDED DIFFERENTIAL [id number] 05:11:00* Test Item Value Reference Range Interpretation Comments STAIN ACCEPTABILITY (test code = STN ACCEPTABLE) CABOT RINGS (test code = CAB) MORPHOLOGY COMMENT (test code = MOC) PLATELET ESTIMATE (test code = PLTEST) PLATELET MORPHOLOGY (test code = PLTMORPH) [id number] 21:16:00* Test Item Value Reference Range Interpretation Comments GLUBED (test code = GLUBED) 139 mg/dL 74-106 H Performed by certified tankage grinder operator at [facility] [id number] 19:55:00* Test Item Value Reference Range Interpretation Comments HEMOGLOBIN (test code = HGB) 8.0 gram/dL 11.5-15.5 L HEMATOCRIT (test code = HCT) 27.0 % 36.0-46.0 L [id number] 18:56:00* Test Item Value Reference Range Interpretation Comments GLUBED (test code = GLUBED) 101 mg/dL 74-106 N Performed by certified [facility] gr[facility] [id number] 13:48:00* Test Item Value Reference Range Interpretation Comments HEMOGLOBIN (test code = HGB) 8.0 gram/dL 11.5-15.5 L HEMATOCRIT (test code = HCT) 26.9 % 36.0-46.0 L [id number] 13:01:00* Test Item Value Reference Range Interpretation Comments GLUBED (test code = GLUBED) 106 mg/dL 74-106 N Performed by certified tankage grinder operator at [facility] [id number] 13:01:00* Test Item Value Reference Range Interpretation Comments GLUBED (test code = GLUBED) < 10 mg/dL 74-106 LL Test performed as P.O.C. by nursing staff.[facility] CBC W/AUTO [id number] 10:45:00* Test Item Value Reference Range Interpretation [...] = MDIFF) NO, ONLY SCAN NEEDED DIFFERENTIAL [id number] 10:45:00* Test Item Value Reference Range Interpretation Comments STAIN ACCEPTABILITY (test code = STN ACCEPTABLE) STAIN ACCEPTABLE POLYCHROMASIA (test code = POLC) 1+ HYPOCHROMIA (test code = HYPO) 1+ ANISOCYTOSIS (test code = ANISO) 1+ PLATELET ESTIMATE (test code = PLTEST) DECREASED PLATELET MORPHOLOGY (test code = PLTMORPH) NORMAL CBC W/AUTO [id number] 10:16:00* Test Item Value Reference Range Interpretation [...] = MDIFF) NO, ONLY SCAN NEEDED DIFFERENTIAL [id number] 10:16:00* Test Item Value Reference Range Interpretation Comments STAIN ACCEPTABILITY (test code = STN ACCEPTABLE) CABOT RINGS (test code = CAB) MORPHOLOGY COMMENT (test code = MOC) PLATELET ESTIMATE (test code = PLTEST) PLATELET MORPHOLOGY (test code = PLTMORPH) CBC W/AUTO [id number] 10:16:00* Test Item Value Reference Range Interpretation [...] = MDIFF) NO, ONLY SCAN NEEDED DIFFERENTIAL [id number] 10:16:00* Test Item Value Reference Range Interpretation Comments STAIN ACCEPTABILITY (test code = STN ACCEPTABLE) CABOT RINGS (test code = CAB) MORPHOLOGY COMMENT (test code = MOC) PLATELET ESTIMATE (test code = PLTEST) PLATELET MORPHOLOGY (test code = PLTMORPH) CBC W/AUTO [id number] 10:16:00* Test Item Value Reference Range Interpretation [...] = MDIFF) NO, ONLY SCAN NEEDED DIFFERENTIAL [id number] 10:16:00* Test Item Value Reference Range Interpretation Comments STAIN ACCEPTABILITY (test code = STN ACCEPTABLE) MORPHOLOGY COMMENT (test code = MOC) PLATELET ESTIMATE (test code = PLTEST) PLATELET MORPHOLOGY (test code = PLTMORPH) CBC W/AUTO [id number] 10:16:00* Test Item Value Reference Range Interpretation [...] = MDIFF) NO, ONLY SCAN NEEDED DIFFERENTIAL [id number] 10:16:00* Test Item Value Reference Range Interpretation Comments STAIN ACCEPTABILITY (test code = STN ACCEPTABLE) CABOT RINGS (test code = CAB) MORPHOLOGY COMMENT (test code = MOC) PLATELET ESTIMATE (test code = PLTEST) PLATELET MORPHOLOGY (test code = PLTMORPH) HGB [id number] 08:37:00* Test Item Value Reference Range Interpretation Comments HEMOGLOBIN (test code = HGB) 8.6 gram/dL 11.5-15.5 L HEMATOCRIT (test code = HCT) 29.0 % 36.0-46.0 L HGB [id number] 02:08:00* Test Item Value Reference Range Interpretation Comments HEMOGLOBIN (test code = HGB) 7.0 gram/dL 11.5-15.5 L HEMATOCRIT (test code = HCT) 24.2 % 36.0-46.0 L URINALYSIS [id number] 21:13:00* Test Item Value Reference Range Interpretation [...] UA BLOOD DIPSTICK (test code = VIJAY) 1+ (Small) NEGATIVE A UA PH DIPSTICK [...] 0-2 #/HPF 0-5 Urine Source? Clean CatchURINALYSIS [id number] 21:08:00* Test Item Value Reference Range Interpretation [...] RENNY) 0-2 #/HPF 0-5 Urine Source? Clean [id number] 20:49:00* Test Item Value Reference Range Interpretation Comments AMMONIA (test code = AMM) 116 umol/L 11-32 H BASIC METABOLIC [id number] 20:48:00* Test Item Value Reference Range Interpretation [...] CA) 8.4 mg/dL 8.5-10.1 L HEPATIC FUNCTION [id number] 20:48:00* Test Item Value Reference Range Interpretation [...] reference range due to change in reagent. [id number] 20:48:00* Test Item Value Reference Range Interpretation Comments LIPASE (test code = LIP) 45 U/L 73.0-393.0 L [id number] 20:48:00* Test Item Value Reference Range Interpretation Comments TROPONIN-I (test code = TROPI) <0.015 ng/mL 0-0.045 N - CT HEAD/BRAIN W/O [id number] 20:43:00 Name: ALEX STANTON [facility] : 1950 Age/S: 68 / F [address] Unit #: [id number] Loc: [facility] [address] Phys: Sugey Burkett MD Acct: [id number] Dis Date: Status: REG ER PHONE #: [phone] Exam Date: 12/20/20182022 FAX #: [phone] Reason: ams EXAMS: CPT CODE: [id number] CT HEAD/BRAIN W/O CONT 30134 HISTORY: ams TECHNIQUE: Noncontrast 2.5 mm axial [...] prior exam. See a braulio discussion. Location: [facility] Pao li Signed by Dick Junior MD on 12/20/2018 at 2043 Rep orted and signed by: Dick Junior MD PAGE 1 Sign ed Report (CONTINUED) Name: ALEX STANTON [facility] : 1950 Age/S: 68 / F [address] Unit #: [id number] Loc: [facility] [address] Phys: Sugey Burkett MD Acct: [id number] Dis Date: Status: REG ER PHONE #: [phone] Exam Date: 12/20/20182022 FAX #: [phone] Reason: ams EXAMS: CPT CODE: [id number] CT HEAD/BRAIN W/O CONT 88469 <Continued> CC: Sugey Burkett MD Technologist:RT POPEYE(R) CT CTDI: DLP: Trnscb Date/Time: 12/20/2018 (2042) [email or web address] Orig Print D/T: S: 12/20/2018 (2045) PAGE 2 Signed Report PROTHROMBIN [id number] 20:42:00* Test Item Value Reference Range Interpretation [...] (2.5-3.5) IS PATIENT ON ANTICOAGULANTS? NTHROMBOPLASTIN TIME [id number] 20:42:00* Test Item Value Reference Range Interpretation Comments THROMBOPLASTIN TIME PARTIAL (test code = PTT) 34.2 seconds 25.0-36. 5 N IS PATIENT ON ANTICOAGULANTS? NBASIC METABOLIC [id number] 20:37:00* Test Item Value Reference Range Interpretation [...] code = CA) mg/dL 8.5-10.1 HEPATIC FUNCTION [id number] 20:37:00* Test Item Value Reference Range Interpretation [...] TOTAL (test code = ALKP) IUnit/L 45-117 [id number] 20:37:00* Test Item Value Reference Range Interpretation Comments LIPASE (test code = LIP) U/L 73.0-393.0 [id number] 20:37:00* Test Item Value Reference Range Interpretation Comments TROPONIN-I (test code = TROPI) ng/mL 0-0.045 CBC W/O [id number] 20:29:00* Test Item Value Reference Range Interpretation [...] code = MPV) 10.9 fL 6.7-11.0 N [id number] 12:28:00* Test Item Value Reference Range Interpretation Comments GLUBED (test code = GLUBED) 123 mg/dL 74-106 H Performed by certified tankage grinder operator at [facility] [id number] 08:13:00* Test Item Value Reference Range Interpretation Comments GLUBED (test code = GLUBED) 124 mg/dL 74-106 H Performed by certified tankage grinder operator at [facility] [id number] 21:01:00* Test Item Value Reference Range Interpretation Comments GLUBED (test code = GLUBED) 129 mg/dL 74-106 H Performed by certified tankage grinder operator at [facility] [id number] 15:56:00* Test Item Value Reference Range Interpretation Comments GLUBED (test code = GLUBED) 155 mg/dL 74-106 H Performed by certified tankage grinder operator at [facility] BASIC METABOLIC [id number] 12:04:00* Test Item Value Reference Range Interpretation [...] CA) 8.0 mg/dL 8.5-10.1 L BASIC METABOLIC [id number] 11:51:00* Test Item Value Reference Range Interpretation [...] CALCIUM (test code = CA) mg/dL 8.5-10.1 [id number] 11:45:00* Test Item Value Reference Range Interpretation Comments GLUBED (test code = GLUBED) 125 mg/dL 74-106 H Performed by certified tankage grinder operator at [facility] [id number] 08:02:00* Test Item Value Reference Range Interpretation Comments GLUBED (test code = GLUBED) 108 mg/dL 74-106 H Performed by certified tankage grinder operator at [facility] [id number] 05:07:00* Test Item Value Reference Range Interpretation Comments AMMONIA (test code = AMM) 94 umol/L 11-32 H [id number] 21:06:00* Test Item Value Reference Range Interpretation Comments GLUBED (test code = GLUBED) 139 mg/dL 74-106 H Performed by certified tankage grinder operator at [facility] CBC W/AUTO [id number] 18:14:00* Test Item Value Reference Range Interpretation [...] = MDIFF) NO, ONLY SCAN NEEDED DIFFERENTIAL [id number] 18:14:00* Test Item Value Reference Range Interpretation Comments STAIN ACCEPTABILITY (test code = STN ACCEPTABLE) STAIN ACCEPTABLE HYPOCHROMIA (test code = HYPO) 2+ PLATELET ESTIMATE (test code = PLTEST) DECREASED PLATELET MORPHOLOGY (test code = PLTMORPH) NORMAL [id number] 17:51:00* Test Item Value Reference Range Interpretation Comments AMMONIA (test code = AMM) 114 umol/L 11-32 H CBC W/AUTO [id number] 17:38:00* Test Item Value Reference Range Interpretation [...] = MDIFF) NO, ONLY SCAN NEEDED DIFFERENTIAL [id number] 17:38:00* Test Item Value Reference Range Interpretation Comments STAIN ACCEPTABILITY (test code = STN ACCEPTABLE) CABOT RINGS (test code = CAB) MORPHOLOGY COMMENT (test code = MOC) PLATELET ESTIMATE (test code = PLTEST) PLATELET MORPHOLOGY (test code = PLTMORPH) CBC W/AUTO [id number] 17:38:00* Test Item Value Reference Range Interpretation [...] = MDIFF) NO, ONLY SCAN NEEDED DIFFERENTIAL [id number] 17:38:00* Test Item Value Reference Range Interpretation Comments STAIN ACCEPTABILITY (test code = STN ACCEPTABLE) CABOT RINGS (test code = CAB) MORPHOLOGY COMMENT (test code = MOC) PLATELET ESTIMATE (test code = PLTEST) PLATELET MORPHOLOGY (test code = PLTMORPH) CBC W/AUTO [id number] 17:38:00* Test Item Value Reference Range Interpretation [...] = MDIFF) NO, ONLY SCAN NEEDED DIFFERENTIAL [id number] 17:38:00* Test Item Value Reference Range Interpretation Comments STAIN ACCEPTABILITY (test code = STN ACCEPTABLE) MORPHOLOGY COMMENT (test code = MOC) PLATELET ESTIMATE (test code = PLTEST) PLATELET MORPHOLOGY (test code = PLTMORPH) CBC W/AUTO [id number] 17:38:00* Test Item Value Reference Range Interpretation [...] = MDIFF) NO, ONLY SCAN NEEDED DIFFERENTIAL [id number] 17:38:00* Test Item Value Reference Range Interpretation Comments STAIN ACCEPTABILITY (test code = STN ACCEPTABLE) CABOT RINGS (test code = CAB) MORPHOLOGY COMMENT (test code = MOC) PLATELET ESTIMATE (test code = PLTEST) PLATELET MORPHOLOGY (test code = PLTMORPH) [id number] 15:22:00* Test Item Value Reference Range Interpretation Comments FERRITIN (test code = NGUYỄN) 22 ng/mL 8-388 N [id number] 15:09:00* Test Item Value Reference Range Interpretation Comments GLUBED (test code = GLUBED) 133 mg/dL 74-106 H Performed by certified tankage grinder operator at [facility] [id number] 11:43:00* Test Item Value Reference Range Interpretation Comments GLUBED (test code = GLUBED) 168 mg/dL 74-106 H Performed by certified tankage grinder operator at [facility] [id number] 07:31:00* Test Item Value Reference Range Interpretation Comments GLUBED (test code = GLUBED) 90 mg/dL 74-106 N Performed by certified tankage grinder operator at [facility] [id number] 20:42:00* Test Item Value Reference Range Interpretation Comments GLUBED (test code = GLUBED) 157 mg/dL 74-106 H Performed by certified tankage grinder operator at [facility] [id number] 20:30:00* Test Item Value Reference Range Interpretation Comments GLUBED (test code = GLUBED) 116 mg/dL 74-106 H Performed by certified tankage grinder operator at [facility] [id number] 11:22:00* Test Item Value Reference Range Interpretation Comments GLUBED (test code = GLUBED) 147 mg/dL 74-106 H Performed by certified tankage grinder operator at [facility] CBC W/AUTO [id number] 04:23:00* Test Item Value Reference Range Interpretation [...] = MDIFF) NO, ONLY SCAN NEEDED DIFFERENTIAL [id number] 04:23:00* Test Item Value Reference Range Interpretation Comments STAIN ACCEPTABILITY (test code = STN ACCEPTABLE) STAIN ACCEPTABLE POLYCHROMASIA (test code = POLC) 1+ ELLIPTOCYTES (test code = ELL) 1+ PLATELET ESTIMATE (test code = PLTEST) DECREASED PLATELET MORPHOLOGY (test code = PLTMORPH) NORMAL BASIC METABOLIC [id number] 04:22:00* Test Item Value Reference Range Interpretation [...] code = CA) 7.8 mg/dL 8.5-10.1 L [id number] 04:22:00* Test Item Value Reference Range Interpretation Comments PHOSPHORUS (test code = PHOS) 2.2 mg/dL 2.5-4.9 L [id number] 04:22:00* Test Item Value Reference Range Interpretation Comments MAGNESIUM (test code = MAG) 2.0 mg/dL 1.8-2.4 N CALCIUM [id number] 04:22:00* Test Item Value Reference Range Interpretation Comments CALCIUM IONIZED (test code = CARYN) 1.18 mmol/L 1.12-1.32 N BASIC METABOLIC [id number] 03:28:00* Test Item Value Reference Range Interpretation [...] code = CA) 7.8 mg/dL 8.5-10.1 L [id number] 03:28:00* Test Item Value Reference Range Interpretation Comments PHOSPHORUS (test code = PHOS) 2.2 mg/dL 2.5-4.9 L [id number] 03:28:00* Test Item Value Reference Range Interpretation Comments MAGNESIUM (test code = MAG) 2.0 mg/dL 1.8-2.4 N CALCIUM [id number] 03:28:00* Test Item Value Reference Range Interpretation Comments CALCIUM IONIZED (test code = CARYN) mmol/L 1.12-1.32 BASIC METABOLIC [id number] 03:21:00* Test Item Value Reference Range Interpretation [...] CALCIUM (test code = CA) mg/dL 8.5-10.1 [id number] 03:21:00* Test Item Value Reference Range Interpretation Comments PHOSPHORUS (test code = PHOS) mg/dL 2.5-4.9 [id number] 03:21:00* Test Item Value Reference Range Interpretation Comments MAGNESIUM (test code = MAG) mg/dL 1.8-2.4 CALCIUM [id number] 03:21:00* Test Item Value Reference Range Interpretation Comments CALCIUM IONIZED (test code = CARYN) mmol/L 1.12-1.32 CBC W/AUTO [id number] 02:59:00* Test Item Value Reference Range Interpretation [...] = MDIFF) NO, ONLY SCAN NEEDED DIFFERENTIAL [id number] 02:59:00* Test Item Value Reference Range Interpretation Comments STAIN ACCEPTABILITY (test code = STN ACCEPTABLE) CABOT RINGS (test code = CAB) MORPHOLOGY COMMENT (test code = MOC) PLATELET ESTIMATE (test code = PLTEST) PLATELET MORPHOLOGY (test code = PLTMORPH) CBC W/AUTO [id number] 02:59:00* Test Item Value Reference Range Interpretation [...] = MDIFF) NO, ONLY SCAN NEEDED DIFFERENTIAL [id number] 02:59:00* Test Item Value Reference Range Interpretation Comments STAIN ACCEPTABILITY (test code = STN ACCEPTABLE) CABOT RINGS (test code = CAB) MORPHOLOGY COMMENT (test code = MOC) PLATELET ESTIMATE (test code = PLTEST) PLATELET MORPHOLOGY (test code = PLTMORPH) CBC W/AUTO [id number] 02:59:00* Test Item Value Reference Range Interpretation [...] = MDIFF) NO, ONLY SCAN NEEDED DIFFERENTIAL [id number] 02:59:00* Test Item Value Reference Range Interpretation Comments STAIN ACCEPTABILITY (test code = STN ACCEPTABLE) MORPHOLOGY COMMENT (test code = MOC) PLATELET ESTIMATE (test code = PLTEST) PLATELET MORPHOLOGY (test code = PLTMORPH) CBC W/AUTO [id number] 02:59:00* Test Item Value Reference Range Interpretation [...] = MDIFF) NO, ONLY SCAN NEEDED DIFFERENTIAL [id number] 02:59:00* Test Item Value Reference Range Interpretation Comments STAIN ACCEPTABILITY (test code = STN ACCEPTABLE) CABOT RINGS (test code = CAB) MORPHOLOGY COMMENT (test code = MOC) PLATELET ESTIMATE (test code = PLTEST) PLATELET MORPHOLOGY (test code = PLTMORPH) HGB [id number] 22:11:00* Test Item Value Reference Range Interpretation Comments HEMOGLOBIN (test code = HGB) 8.5 gram/dL 11.5-15.5 L HEMATOCRIT (test code = HCT) 28.0 % 36.0-46.0 L [id number] 20:39:00* Test Item Value Reference Range Interpretation Comments GLUBED (test code = GLUBED) 122 mg/dL 74-106 H Performed by certified tankage grinder operator at [facility] [id number] 16:11:00* Test Item Value Reference Range Interpretation Comments GLUBED (test code = GLUBED) 125 mg/dL 74-106 H Performed by certified tankage grinder operator at [facility] FE W/TOTAL IRON BINDING CAP.2018-12-09 15:32:00* Test Item Value Reference Range Interpretation Comments SERUM IRON (test code = IRON) 253 ug/dL 50-175 H TOTAL IRON BINDING CAPACITY (test code = TIBC) 329 mcg/dL 250-450 N IRON SATURATION (test code = FESAT) 76.90 % 13-45 H VITAMIN [id number] 15:32:00* Test Item Value Reference Range Interpretation Comments VITAMIN B12 (test code = VITB12) 1411 pg/mL 193-986 H FOLIC [id number] 15:32:00* Test Item Value Reference Range Interpretation Comments FOLIC ACID (test code = FOL) 5.8 ng/mL 3.10-17.50 N CBC W/AUTO [id number] 15:20:00* Test Item Value Reference Range Interpretation [...] code = NRBC#) 0.00 K/mm3 0.0-0.1 N [id number] 11:05:00* Test Item Value Reference Range Interpretation Comments GLUBED (test code = GLUBED) 129 mg/dL 74-106 H Performed by certified tankage grinder operator at [facility] [id number] 08:31:00* Test Item Value Reference Range Interpretation Comments GLUBED (test code = GLUBED) 93 mg/dL 74-106 N Performed by certified tankage grinder operator at [facility] B-TYPE NATRIURETIC [id number] 06:25:00* Test Item Value Reference Range Interpretation Comments B-TYPE NATRIURETIC PEPTIDE (test code = BNP) 213.89 pgram/mL 0-100 H CBC W/AUTO [id number] 05:07:00* Test Item Value Reference Range Interpretation [...] = MDIFF) NO, ONLY SCAN NEEDED DIFFERENTIAL [id number] 05:07:00* Test Item Value Reference Range Interpretation Comments STAIN ACCEPTABILITY (test code = STN ACCEPTABLE) STAIN ACCEPTABLE POLYCHROMASIA (test code = POLC) 2+ ANISOCYTOSIS (test code = ANISO) 1+ MORPHOLOGY COMMENT (test code = MOC) NORMAL PLATELET ESTIMATE (test code = PLTEST) DECREASED PLATELET MORPHOLOGY (test code = PLTMORPH) NORMAL RETICULOCYTE [id number] 05:07:00* Test Item Value Reference Range Interpretation [...] is indicative of iron deficiency. COMPREHENSIVE METABOLIC [id number] 05:01:00* Test Item Value Reference Range Interpretation [...] reference range due to change in reagent. [id number] 05:01:00* Test Item Value Reference Range Interpretation Comments PHOSPHORUS (test code = PHOS) 2.8 mg/dL 2.5-4.9 N [id number] 05:01:00* Test Item Value Reference Range Interpretation Comments MAGNESIUM (test code = MAG) 2.0 mg/dL 1.8-2.4 N CALCIUM [id number] 05:01:00* Test Item Value Reference Range Interpretation Comments CALCIUM IONIZED (test code = CARYN) 1.15 mmol/L 1.12-1.32 N CBC W/AUTO [id number] 04:51:00* Test Item Value Reference Range Interpretation [...] = MDIFF) NO, ONLY SCAN NEEDED DIFFERENTIAL [id number] 04:51:00* Test Item Value Reference Range Interpretation Comments STAIN ACCEPTABILITY (test code = STN ACCEPTABLE) CABOT RINGS (test code = CAB) MORPHOLOGY COMMENT (test code = MOC) PLATELET ESTIMATE (test code = PLTEST) PLATELET MORPHOLOGY (test code = PLTMORPH) RETICULOCYTE [id number] 04:51:00* Test Item Value Reference Range Interpretation [...] is indicative of iron deficiency. CBC W/AUTO [id number] 04:51:00* Test Item Value Reference Range Interpretation [...] = MDIFF) NO, ONLY SCAN NEEDED DIFFERENTIAL [id number] 04:51:00* Test Item Value Reference Range Interpretation Comments STAIN ACCEPTABILITY (test code = STN ACCEPTABLE) CABOT RINGS (test code = CAB) MORPHOLOGY COMMENT (test code = MOC) PLATELET ESTIMATE (test code = PLTEST) PLATELET MORPHOLOGY (test code = PLTMORPH) RETICULOCYTE [id number] 04:51:00* Test Item Value Reference Range Interpretation [...] is indicative of iron deficiency. CBC W/AUTO [id number] 04:51:00* Test Item Value Reference Range Interpretation [...] = MDIFF) NO, ONLY SCAN NEEDED DIFFERENTIAL [id number] 04:51:00* Test Item Value Reference Range Interpretation Comments STAIN ACCEPTABILITY (test code = STN ACCEPTABLE) MORPHOLOGY COMMENT (test code = MOC) PLATELET ESTIMATE (test code = PLTEST) PLATELET MORPHOLOGY (test code = PLTMORPH) RETICULOCYTE [id number] 04:51:00* Test Item Value Reference Range Interpretation [...] is indicative of iron deficiency. CBC W/AUTO [id number] 04:51:00* Test Item Value Reference Range Interpretation [...] = MDIFF) NO, ONLY SCAN NEEDED DIFFERENTIAL [id number] 04:51:00* Test Item Value Reference Range Interpretation Comments STAIN ACCEPTABILITY (test code = STN ACCEPTABLE) CABOT RINGS (test code = CAB) MORPHOLOGY COMMENT (test code = MOC) PLATELET ESTIMATE (test code = PLTEST) PLATELET MORPHOLOGY (test code = PLTMORPH) RETICULOCYTE [id number] 04:51:00* Test Item Value Reference Range Interpretation [...] is indicative of iron deficiency. COMPREHENSIVE METABOLIC [id number] 04:42:00* Test Item Value Reference Range Interpretation [...] TOTAL (test code = ALKP) IUnit/L 45-117 [id number] 04:42:00* Test Item Value Reference Range Interpretation Comments PHOSPHORUS (test code = PHOS) mg/dL 2.5-4.9 [id number] 04:42:00* Test Item Value Reference Range Interpretation Comments MAGNESIUM (test code = MAG) mg/dL 1.8-2.4 CALCIUM [id number] 04:42:00* Test Item Value Reference Range Interpretation Comments CALCIUM IONIZED (test code = CARYN) 1.15 mmol/L 1.12-1.32 N [id number] 04:42:00* Test Item Value Reference Range Interpretation Comments AMMONIA (test code = AMM) 114 umol/L 11-32 H [id number] 20:08:00* Test Item Value Reference Range Interpretation Comments GLUBED (test code = GLUBED) 105 mg/dL 74-106 N Performed by certified tankage grinder operator at [facility] PLATELET [id number] 19:45:00* Test Item Value Reference Range Interpretation Comments PLATELET COUNT (test code = PLT) 67 K/mm3 150-450 L RESULT VERIFIED BY REPEAT ANALYSIS [id number] 16:33:00* Test Item Value Reference Range Interpretation Comments GLUBED (test code = GLUBED) 132 mg/dL 74-106 H Performed by certified tankage grinder operator at [facility] HGB [id number] 15:25:00* Test Item Value Reference Range Interpretation Comments HEMOGLOBIN (test code = HGB) 6.7 gram/dL 11.5-15.5 L HEMATOCRIT (test code = HCT) 21.5 % 36.0-46.0 LL Results called to [id number] by V.LAB.LL 12/08/18 1525Critical results verified and read back by Nurse? Y [id number] 15:02:00* Test Item Value Reference Range Interpretation Comments GLUBED (test code = GLUBED) 134 mg/dL 74-106 H Performed by certified tankage grinder operator at [facility] - CT ABD PELVIS W/O [id number] 14:23:00 Name: ALEX STANTON [facility] : 1950 Age/S: 68 / F [address] [facility] Unit #: [id number] Loc: [facility] [address] Phys: Kevin Cutler MD Acct: [id number] Dis Date: Status: ADM IN PHONE #: [phone] Exam Date: 12/08/2018 1255 FAX #: [phone] Reason: ANEMIA, R/O GI BLEED EXAMS: CPT CODE: [id number] CT ABD PELVIS W/O CONT 18611 HISTORY: Anemia and evaluate for GI bleed. [...] 1 Signed Report (CONTINUED) Name: ALEX STANTON [facility] : 1950 Age/S : 68 / F [address] [facility] Unit #: [id number] Loc: H[place] Khan [address] Phys: Kevin Cutler MD Acct: [id number] Dis Date: Status: ADM IN PHONE #: [phone] Exam Date: 12/08/2018 1255 FAX #: [phone] Reason: A NEMIA, R/O GI BLEED EXAMS: CPT CODE: [id number] CT ABD PELVIS W/O CONT 18439 <Continued> Nodular cirrhotic shrunken liver without discrete [...] Montano RT(R),(MR),(CT) CTDI: DLP: Trnscb Date/Time: 12/08/2018 (142) [email or web address].[email or web address].TH4 Orig Print D/T: S: 12/08/2018 (1426) PAGE 2 Signed Report [id number] 14:20:00* Test Item Value Reference Range Interpretation Comments GLYCOSYLATED HEMOGLOBIN (HA1C) (test code = GLYHGB) < 3.5 % HbA1 4. 8-6.0 L ESTIMATED AVERAGE GLUCOSE (test code = EAG) 54 MG/DL PT CAROLINASTELSY COULD NOT AHOLD OF ALEXANDER VMindyLAB.SC1 [id number] 12:28:00* Test Item Value Reference Range Interpretation Comments HEMOGLOBIN (test code = HGB) 6.8 gram/dL 11.5-15.5 L RESULT VERIFIED BY REPEAT ANALYSIS HEMATOCRIT (test code = HCT) 22.6 % 36.0-46.0 L [id number] 08:41:00* Test Item Value Reference Range Interpretation Comments GLUBED (test code = GLUBED) 95 mg/dL 74-106 N Performed by certified tankage grinder operator at [facility] B-TYPE NATRIURETIC [id number] 19:03:00* Test Item Value Reference Range Interpretation Comments B-TYPE NATRIURETIC PEPTIDE (test code = BNP) 201.28 pgram/mL 0-100 H PROTHROMBIN [id number] 18:49:00* Test Item Value Reference Range Interpretation [...] (2.5-3.5) IS PATIENT ON ANTICOAGULANTS? NTHROMBOPLASTIN TIME [id number] 18:49:00* Test Item Value Reference Range Interpretation Comments THROMBOPLASTIN TIME PARTIAL (test code = PTT) 31.2 seconds 25.0-36. 5 N IS PATIENT ON ANTICOAGULANTS? NCBC W/O [id number] 18:38:00* Test Item Value Reference Range Interpretation Comments WHITE BLOOD CELL (test code = WBC) 4.3 K/mm3 4.5-12.5 L RED BLOOD CELL (test code = RBC) 1.64 mill/mm3 3.7-5.2 L HEMOGLOBIN (test code = HGB) 4.2 gram/dL 11.5-15.5 L HEMATOCRIT (test code = HCT) 15.0 % 36.0-46.0 LL Results called to VSF6928 by V.LAB. 12/07/18 1828Critical results verified and read back [...] MPV) 11.9 fL 6.7-11.0 H BASIC METABOLIC [id number] 18:35:00* Test Item Value Reference Range Interpretation [...] CA) 7.9 mg/dL 8.5-10.1 L HEPATIC FUNCTION [id number] 18:35:00* Test Item Value Reference Range Interpretation [...] reference range due to change in reagent. [id number] 18:35:00* Test Item Value Reference Range Interpretation Comments MAGNESIUM (test code = MAG) 2.1 mg/dL 1.8-2.4 N [id number] 18:35:00* Test Item Value Reference Range Interpretation Comments TROPONIN-I (test code = TROPI) <0.015 ng/mL 0-0.045 N [id number] 18:28:00* Test Item Value Reference Range Interpretation Comments AMMONIA (test code = AMM) 74 umol/L 11-32 H BASIC METABOLIC [id number] 18:24:00* Test Item Value Reference Range Interpretation [...] code = CA) mg/dL 8.5-10.1 HEPATIC FUNCTION [id number] 18:24:00* Test Item Value Reference Range Interpretation [...] TOTAL (test code = ALKP) IUnit/L 45-117 [id number] 18:24:00* Test Item Value Reference Range Interpretation Comments MAGNESIUM (test code = MAG) mg/dL 1.8-2.4 [id number] 18:24:00* Test Item Value Reference Range Interpretation Comments TROPONIN-I (test code = TROPI) ng/mL 0-0.045 - XR CHEST 1 [id number] 16:55:00 FAX: Elaine Fleming [phone] [place]: B St: REG Name: ALEX LANDRUM [facility] : [birth year] Age/S: 68/F Nain [place] Unit #: [id number] [place]: [place] [address] Phys: Elaine Golden MD Acct: [id number] Dis Date: Status: REG ER PHONE #: [phone] Exam Date: 12/07/2018 1650 FAX #: [phone] Reason: Shortness of Breath EXAMS: CPT CODE: [id number] XR CHEST 1 V 80217 REASON FOR EXAM: Shortness of Breath Exam [...] finding secondary to diminished lung volumes. at 1652 Reported and signed by: Dick Junior MD CC: Elaine Golden MD Technologist: SAI GARCIA; ZAHEER VAUGHN, RT(R) T rnscrd Date/Time/By: 12/07/2018 (215) : By: [email or web address] Orig Print D/T: S: 12/07/2018 (3419) PAGE 1 Sign ed Report US ABDOMEN [id number] 11:35:00 [place] [address] Patient Name: ALEX STANTON MR #: [id number] : 1950 Age/Sex: 68/F Req #: [id number] Adm Physician: Ordered by: JOHN LOPEZ MD Report #: [id number] Location: Room/Bed: Procedure: 8032-9454 US /US ABDOMEN LIMITED Exam Date: 12/01/18 Exam Time: 1 109 REPORT STATUS: Signed EXAM: Focused Ultrasound Evaluation of the abdomen INDICATION: 1108 ASCITES COMPARISON: None TECHNIQUE: Monahan scale image s of the 4 quadrants of the abdomen were obtained. FINDINGS/IMPRESSION: Trace ascites in the right and left upper quadrants, insufficient for safe per formance of paracentesis. Signed by: Mayra Viramontes MD on 12/01/2018 11:37 AM Dictated By: MAYRA VIRAMONTES MD 1137 COPY TO: Aaron LOPEZ MD [id number] 07:18:00* Test Item Value Reference Range Interpretation Comments Anisocytosis (test code = 702-1) SLIGHT [facility] 07:18:00* Test Item Value Reference Range Interpretation Comments Macrocytosis (test code = 738-5) SLIGHT [facility]eville[facility]valocytes2019-08-14 07:18:00* Test Item Value Reference Range Interpretation Comments Ovalocytes (test code = 774-0) FEW [facility]eville[facility] Cell Morphology [id number] 07:18:00* Test Item Value Reference Range Interpretation Comments Red Cell Morphology Comment (test code = 6742-1) NORMAL [facility]evilleMagnesium [id number] 15:35:00* Test Item Value Reference Range Interpretation Comments Magnesium Level (test code = 98331-9) 1.7 1.3-2.1 [facility] Total Cells Counted 2018-10-09 08:25:00* Test Item Value Reference Range Interpretation Comments Differential Total Cells Counted (test code = Differsaundra tial Total Cells Counted) 100 [facility]eville[facility]utrophils % (Manual)2018-10-09 08:25:00 * Test Item Value Reference Range Interpretation Comments Neutrophils % (Manual) (test code = 56455-3) 80 40-74 [facility]evilleLymphocytes % (Manual)2018-10-09 08:25:00 * Test Item Value Reference Range Interpretation Comments Lymphocytes % (Manual) (test code = 737-7) 14 19-48 [facility] % (Manual)2018-10-09 08:25:00* Test Item Value Reference Range Interpretation Comments Monocytes % (Manual) (test code = 744-3) 5 3.4-9.0 [facility] % (Manual)2018-10-09 08:25:00 * Test Item Value Reference Range Interpretation Comments Eosinophils % (Manual) (test code = 714-6) 1 0-7 [facility]eville[facility]ikilocytosis2019-08-12 08:25:00* Test Item Value Reference Range Interpretation Comments Poikilocytosis (test code = 779-9) SLIGHT [facility]evilleG I [id number] 20:39:00 [facility] [address] [place] [address] Patient Name: ALEX STANTON MR #: [id number] : 1950 Age/Sex: 68/F Req #: [id number] Adm Physician: JOHN LOPEZ MD Ordered by: GERSON MESSINA MD Report #: [id number] Location: MED/SURG2 Room/Bed: [facility] Procedure: 0811-000 1 NM/G I BLEED Exam [...] GERSON ROBLEDO MD CHEST SINGLE (PORTABLE)2018-10-06 20:02:00 [place] [address] Patient Name: ALEX STANTON MR #: [id number] : 1950 Age/Sex: 68/F Req #: [id number] Adm Physician: SHIVA MESSINA MD Ordered by: INGRID 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 OPERATOR Report #: [id number] Location: [facility] Room/Bed: [place] [address] Procedure: 9 DX/CHEST SINGLE (PORTABLE) Exam Date: 10/06/18 Sonny m Time: 1942 REPORT STATUS: Signed Examination: Single [...] COPY TO: INGRID ZHENG NP CT BRAIN [id number] 19:55:00 [place] [address] Patient Name: ALEX STANTON MR #: [id number] : 1950 Age/Sex: 68/F Req #: [id number] Adm Physician: SHIVA MESSINA MD Ordered by: INGRID ZHENG NP Report #: [id number] Location: [facility] Room/Bed: [place] [address] Procedure: CT/CT BRAIN WO Exam Date: 10/06/18 Exam [...] COPY TO: INGRID ZHENG NP Urine Hyaline [id number] 18:59:00 * Test Item Value Reference Range Interpretation Comments Urine Hyaline Casts (test code = 77091-5) 6-10 0-1 [facility]eville[facility]UB[facility]2019-07-08 15:50:00* Test Item Value Reference Range Interpretation Comments GLUBED (test code = GLUBED) 101 mg/dL 74-106 N Performed by certified tankage grinder operator at [facility] [id number] 11:12:00* Test Item Value Reference Range Interpretation Comments GLUBED (test code = GLUBED) 122 mg/dL 74-106 H Performed by certified tankage grinder operator at [facility] [id number] 06:48:00* Test Item Value Reference Range Interpretation Comments AMMONIA (test code = AMM) 66 umol/L 11-32 H [id number] 02:29:00* Test Item Value Reference Range Interpretation Comments GLUBED (test code = GLUBED) 99 mg/dL 74-106 N Performed by certified tankage grinder operator at [facility] [id number] 17:03:00* Test Item Value Reference Range Interpretation Comments GLUBED (test code = GLUBED) 118 mg/dL 74-106 H Performed by certified tankage grinder operator at [facility] [id number] 17:03:00* Test Item Value Reference Range Interpretation Comments GLUBED (test code = GLUBED) 130 mg/dL 74-106 H Performed by certified tankage grinder operator at [facility] [id number] 14:21:00* Test Item Value Reference Range Interpretation Comments GLUBED (test code = GLUBED) 127 mg/dL 74-106 H Performed by certified tankage grinder operator at [facility] [id number] 05:37:00* Test Item Value Reference Range Interpretation Comments GLUBED (test code = GLUBED) 86 mg/dL 74-106 N Performed by certified tankage grinder operator at [facility] [id number] 17:45:00* Test Item Value Reference Range Interpretation Comments GLUBED (test code = GLUBED) 126 mg/dL 74-106 H Performed by certified tankage grinder operator at [facility] [id number] 17:45:00* Test Item Value Reference Range Interpretation Comments GLUBED (test code = GLUBED) 94 mg/dL 74-106 N Performed by certified tankage grinder operator at [facility] CBC W/AUTO [id number] 08:22:00* Test Item Value Reference Range Interpretation [...] = MDIFF) NO, ONLY SCAN NEEDED DIFFERENTIAL [id number] 08:22:00* Test Item Value Reference Range Interpretation Comments STAIN ACCEPTABILITY (test code = STN ACCEPTABLE) STAIN ACCEPTABLE PLATELET ESTIMATE (test code = PLTEST) DECREASED PLATELET MORPHOLOGY (test code = PLTMORPH) NORMAL CBC W/AUTO [id number] 07:40:00* Test Item Value Reference Range Interpretation [...] = MDIFF) NO, ONLY SCAN NEEDED DIFFERENTIAL [id number] 07:40:00* Test Item Value Reference Range Interpretation Comments STAIN ACCEPTABILITY (test code = STN ACCEPTABLE) CABOT RINGS (test code = CAB) MORPHOLOGY COMMENT (test code = MOC) PLATELET ESTIMATE (test code = PLTEST) PLATELET MORPHOLOGY (test code = PLTMORPH) CBC W/AUTO [id number] 07:40:00* Test Item Value Reference Range Interpretation [...] = MDIFF) NO, ONLY SCAN NEEDED DIFFERENTIAL [id number] 07:40:00* Test Item Value Reference Range Interpretation Comments STAIN ACCEPTABILITY (test code = STN ACCEPTABLE) CABOT RINGS (test code = CAB) MORPHOLOGY COMMENT (test code = MOC) PLATELET ESTIMATE (test code = PLTEST) PLATELET MORPHOLOGY (test code = PLTMORPH) CBC W/AUTO [id number] 07:40:00* Test Item Value Reference Range Interpretation [...] = MDIFF) NO, ONLY SCAN NEEDED DIFFERENTIAL [id number] 07:40:00* Test Item Value Reference Range Interpretation Comments STAIN ACCEPTABILITY (test code = STN ACCEPTABLE) MORPHOLOGY COMMENT (test code = MOC) PLATELET ESTIMATE (test code = PLTEST) PLATELET MORPHOLOGY (test code = PLTMORPH) CBC W/AUTO [id number] 07:40:00* Test Item Value Reference Range Interpretation [...] = MDIFF) NO, ONLY SCAN NEEDED DIFFERENTIAL [id number] 07:40:00* Test Item Value Reference Range Interpretation Comments STAIN ACCEPTABILITY (test code = STN ACCEPTABLE) CABOT RINGS (test code = CAB) MORPHOLOGY COMMENT (test code = MOC) PLATELET ESTIMATE (test code = PLTEST) PLATELET MORPHOLOGY (test code = PLTMORPH) [id number] 05:49:00* Test Item Value Reference Range Interpretation Comments GLUBED (test code = GLUBED) 97 mg/dL 74-106 N Performed by certified tankage grinder operator at [facility] ALPHA FETOPROTEIN TUMOR [id number] 03:06:00* Test Item Value Reference Range Interpretation Comments ALPHA FETOPROTEIN TUMOR MARKER (test code = AFPTM) 4.3 ng/mL 0.0 -8.3 [employer] [employer] Electrochemiluminescence Immunoassay(ECLIA)Values obtained with different assay methods or kits cannotbe used interchangeably. Results cannot be interpreted asabsolute evidence of the presence or absence of malignantdisease.This test is not interpretable in females.Performed At: [facility] [id number] Kyle L MD Ph:[phone] [id number] 21:20:00* Test Item Value Reference Range Interpretation Comments GLUBED (test code = GLUBED) 81 mg/dL 74-106 N Performed by certified tankage grinder operator at [facility] [id number] 17:02:00* Test Item Value Reference Range Interpretation Comments GLUBED (test code = GLUBED) 65 mg/dL 74-106 L Performed by certified tankage grinder operator at [facility] COMPREHENSIVE METABOLIC [id number] 07:45:00* Test Item Value Reference Range Interpretation [...] due to change in reagent. COMPREHENSIVE METABOLIC [id number] 07:20:00* Test Item Value Reference Range Interpretation [...] code = ALKP) IUnit/L 45-117 CBC W/AUTO [id number] 06:35:00* Test Item Value Reference Range Interpretation [...] DIFF REQUIRED (test code = MDIFF) NO [id number] 05:43:00* Test Item Value Reference Range Interpretation Comments GLUBED (test code = GLUBED) 99 mg/dL 74-106 N Performed by certified tankage grinder operator at [facility] [id number] 21:57:00* Test Item Value Reference Range Interpretation Comments GLUBED (test code = GLUBED) 119 mg/dL 74-106 H Performed by certified tankage grinder operator at [facility] [id number] 16:29:00* Test Item Value Reference Range Interpretation Comments GLUBED (test code = GLUBED) 169 mg/dL 74-106 H Per[facility] certified tankage grinder [facility]ified [facility]~ [id number] 12:17:00* Test Item Value Reference Range Interpretation Comments AMMONIA (test code = AMM) 74 umol/L 11-32 H [id number] 12:05:00* Test Item Value Reference Range Interpretation Comments GLUBED (test code = GLUBED) 170 mg/dL 74-106 H Performed by certified tankage grinder [facility]~ CBC W/AUTO [id number] 06:22:00* Test Item Value Reference Range Interpretation [...] = MDIFF) NO, ONLY SCAN NEEDED DIFFERENTIAL [id number] 06:22:00* Test Item Value Reference Range Interpretation Comments STAIN ACCEPTABILITY (test code = STN ACCEPTABLE) STAIN ACCEPTABLE POLYCHROMASIA (test code = POLC) 1+ HYPOCHROMIA (test code = HYPO) 1+ PLATELET ESTIMATE (test code = PLTEST) DECREASED PLATELET MORPHOLOGY (test code = PLTMORPH) NORMAL [id number] 05:19:00* Test Item Value Reference Range Interpretation Comments GLUBED (test code = GLUBED) 159 mg/dL 74-106 H Performed by certified tankage grinder operator at [facility] CBC W/AUTO [id number] 05:09:00* Test Item Value Reference Range Interpretation [...] = MDIFF) NO, ONLY SCAN NEEDED DIFFERENTIAL [id number] 05:09:00* Test Item Value Reference Range Interpretation Comments STAIN ACCEPTABILITY (test code = STN ACCEPTABLE) CABOT RINGS (test code = CAB) MORPHOLOGY COMMENT (test code = MOC) PLATELET ESTIMATE (test code = PLTEST) PLATELET MORPHOLOGY (test code = PLTMORPH) CBC W/AUTO [id number] 05:09:00* Test Item Value Reference Range Interpretation [...] = MDIFF) NO, ONLY SCAN NEEDED DIFFERENTIAL [id number] 05:09:00* Test Item Value Reference Range Interpretation Comments STAIN ACCEPTABILITY (test code = STN ACCEPTABLE) CABOT RINGS (test code = CAB) MORPHOLOGY COMMENT (test code = MOC) PLATELET ESTIMATE (test code = PLTEST) PLATELET MORPHOLOGY (test code = PLTMORPH) CBC W/AUTO [id number] 05:09:00* Test Item Value Reference Range Interpretation [...] = MDIFF) NO, ONLY SCAN NEEDED DIFFERENTIAL [id number] 05:09:00* Test Item Value Reference Range Interpretation Comments STAIN ACCEPTABILITY (test code = STN ACCEPTABLE) MORPHOLOGY COMMENT (test code = MOC) PLATELET ESTIMATE (test code = PLTEST) PLATELET MORPHOLOGY (test code = PLTMORPH) CBC W/AUTO [id number] 05:09:00* Test Item Value Reference Range Interpretation [...] = MDIFF) NO, ONLY SCAN NEEDED DIFFERENTIAL [id number] 05:09:00* Test Item Value Reference Range Interpretation Comments STAIN ACCEPTABILITY (test code = STN ACCEPTABLE) CABOT RINGS (test code = CAB) MORPHOLOGY COMMENT (test code = MOC) PLATELET ESTIMATE (test code = PLTEST) PLATELET MORPHOLOGY (test code = PLTMORPH) [id number] 20:41:00* Test Item Value Reference Range Interpretation Comments GLUBED (test code = GLUBED) 79 mg/dL 74-106 N Performed by certified tankage grinder operator at [facility] - CT ABD PELVIS [id number] 19:31:00 Name: ALEX STANTON [facility] : 1950 Age/S: 67 / F [place] Unit #: [id number] Loc: [place] [address] Phys: Alessandra Tompkins MD Acct: [id number] Dis Date: Status: ADM IN PHONE #: [phone] Exam Date: 08/30/2018 192 FAX #: [phone] Reason: cirrhosis EXAMS: CPT CODE: [id number] CT ABD PELVIS W/CONT 02247 REASON FOR EXAM: cirrhosis EXAM ORDER DATE: 08/30/2018 5:36 PM Ordering MUsama: Alessandra Tompkins MD PROCEDURE: - CT ABD [...] RT(R) CTDI: DLP: Trnscb Date/Time: 08/30/2018 (1930) t.SDR.VTL Orig Print D/T: S: 08/30/2018 (1933) PAGE 1 Signed Report [id number] 19:19:00* Test Item Value Reference Range Interpretation Comments AMMONIA (test code = AMM) 86 umol/L 11-32 H CBC W/AUTO [id number] 17:12:00* Test Item Value Reference Range Interpretation [...] NO, ONLY SCAN NEEDED QNS, REDRAW TO [facility]. 08/30/18 1539DIFFERENTIAL [id number] 17:12:00* Test Item Value Reference Range Interpretation Comments STAIN ACCEPTABILITY (test code = STN ACCEPTABLE) STAIN ACCEPTABLE POLYCHROMASIA (test code = POLC) 1+ PLATELET ESTIMATE (test code = PLTEST) DECREASED PLATELET MORPHOLOGY (test code = PLTMORPH) NORMAL QNS, REDRAW TO [facility]. 08/30/18 1539CBC W/AUTO [id number] 16:32:00 * Test Item Value Reference Range [...] NO, ONLY SCAN NEEDED QNS, REDRAW TO [employer]. 08/30/18 1539DIFFERENTIAL [id number] 16:32:00* Test Item Value Reference Range Interpretation Comments STAIN ACCEPTABILITY (test code = STN ACCEPTABLE) CABOT RINGS (test code = CAB) MORPHOLOGY COMMENT (test code = MOC) PLATELET ESTIMATE (test code = PLTEST) PLATELET MORPHOLOGY (test code = PLTMORPH) QNS, REDRAW TO [employer]. 08/30/18 1539CBC W/AUTO [id number] 16:32:00 * Test Item Value Reference Range [...] NO, ONLY SCAN NEEDED QNS, REDRAW TO [employer] 08/30/18 1539DIFFERENTIAL [id number] 16:32:00* Test Item Value Reference Range Interpretation Comments STAIN ACCEPTABILITY (test code = STN ACCEPTABLE) MORPHOLOGY COMMENT (test code = MOC) PLATELET ESTIMATE (test code = PLTEST) PLATELET MORPHOLOGY (test code = PLTMORPH) ROQUE, REDRAW TO [employer] 08/30/18 1539CBC W/AUTO [id number] 16:32:00 * Test Item Value Reference Range [...] NO, ONLY SCAN NEEDED QNS, REDRAW TO [employer]. 08/30/18 1539DIFFERENTIAL [id number] 16:32:00* Test Item Value Reference Range Interpretation Comments STAIN ACCEPTABILITY (test code = STN ACCEPTABLE) MORPHOLOGY COMMENT (test code = MOC) PLATELET ESTIMATE (test code = PLTEST) PLATELET MORPHOLOGY (test code = PLTMORPH) QNS, REDRAW TO [employer]. 08/30/18 1539CBC W/AUTO [id number] 16:32:00 * Test Item Value Reference Range [...] NO, ONLY SCAN NEEDED QNS, REDRAW TO [employer]. 08/30/18 1539DIFFERENTIAL [id number] 16:32:00* Test Item Value Reference Range Interpretation Comments STAIN ACCEPTABILITY (test code = STN ACCEPTABLE) CABOT RINGS (test code = CAB) MORPHOLOGY COMMENT (test code = MOC) PLATELET ESTIMATE (test code = PLTEST) PLATELET MORPHOLOGY (test code = PLTMORPH) QNS, REDRAW TO [employer]. 08/30/18 [id number] 12:38:00* Test Item Value Reference Range Interpretation Comments GLUBED (test code = GLUBED) 88 mg/dL 74-106 N Performed by certified tankage grinder operator at [facility] [id number] 07:24:00* Test Item Value Reference Range Interpretation Comments GLUBED (test code = GLUBED) 102 mg/dL 74-106 N Performed by certified tankage grinder operator at [facility] [id number] 23:13:00* Test Item Value Reference Range Interpretation Comments GLUBED (test code = GLUBED) 127 mg/dL 74-106 H Performed by certified tankage grinder operator at [facility] [id number] 21:19:00* Test Item Value Reference Range Interpretation Comments GLUBED (test code = GLUBED) 50 mg/dL 74-106 L Performed by certified tankage grinder operator at [facility] [id number] 18:46:00* Test Item Value Reference Range Interpretation Comments AMMONIA (test code = AMM) 54 umol/L 11-32 H B-TYPE NATRIURETIC [id number] 14:49:00* Test Item Value Reference Range Interpretation Comments B-TYPE NATRIURETIC PEPTIDE (test code = BNP) 88.07 pgram/mL 0-100 N BASIC METABOLIC [id number] 14:45:00* Test Item Value Reference Range Interpretation [...] CA) 7.6 mg/dL 8.5-10.1 L HEPATIC FUNCTION [id number] 14:45:00* Test Item Value Reference Range Interpretation [...] reference range due to change in reagent. [id number] 14:45:00* Test Item Value Reference Range Interpretation Comments LIPASE (test code = LIP) 67 U/L 73.0-393.0 L [id number] 14:45:00* Test Item Value Reference Range Interpretation Comments MAGNESIUM (test code = MAG) 2.1 mg/dL 1.8-2.4 N THYROID PROFILE [id number] 14:45:00* Test Item Value Reference Range Interpretation [...] 5.5 mIU/mL HYPER : < 0.35 mIU/mL [id number] 14:45:00* Test Item Value Reference Range Interpretation Comments TROPONIN-I (test code = TROPI) <0.015 ng/mL 0-0.045 N BASIC METABOLIC [id number] 14:31:00* Test Item Value Reference Range Interpretation [...] code = CA) mg/dL 8.5-10.1 HEPATIC FUNCTION [id number] 14:31:00* Test Item Value Reference Range Interpretation [...] TOTAL (test code = ALKP) IUnit/L 45-117 [id number] 14:31:00* Test Item Value Reference Range Interpretation Comments LIPASE (test code = LIP) U/L 73.0-393.0 [id number] 14:31:00* Test Item Value Reference Range Interpretation Comments MAGNESIUM (test code = MAG) mg/dL 1.8-2.4 THYROID PROFILE [id number] 14:31:00* Test Item Value Reference Range Interpretation Comments T3 UPTAKE (test code = T3UP) % 30.0-40.0 T4 (THYROXINE) (test code = T4) ug/dL 4.5-13.9 T7 (FREE THYROXINE INDEX) (test code = T7) FTI 1.3-5.1 THYROID STIMULATING HORMONE (test code = TSH) uIU/mL 0.36-3.7 4 [id number] 14:31:00* Test Item Value Reference Range Interpretation Comments TROPONIN-I (test code = TROPI) ng/mL 0-0.045 PROTHROMBIN [id number] 14:31:00* Test Item Value Reference Range Interpretation [...] (2.5-3.5) IS PATIENT ON ANTICOAGULANTS? NTHROMBOPLASTIN TIME [id number] 14:31:00* Test Item Value Reference Range Interpretation Comments THROMBOPLASTIN TIME PARTIAL (test code = PTT) 33.4 seconds 25.0-36. 5 N IS PATIENT ON ANTICOAGULANTS? NCBC W/O [id number] 14:27:00* Test Item Value Reference Range Interpretation [...] fL 6.7-11.0 H - XR CHEST 1 [id number] 14:12:00 FAX: Kadie Garcia MD [phone] [place]: St: PRE Name: Sandra PAEZALEX [facility] : [birth year] Age/S: 67/F [address] [facility] Unit #: [id number] Loc: [place] [address] Phys: Kadie Garcia MD Acct: [id number] Dis Date: Status: PRE ER PHONE #: [phone] Exam Date: 08/29/2018 1355 FAX #: [phone] Reason: Shortness of Breath EXAMS: CPT CODE: [id number] XR CHEST 1 V 19902 HISTORY: Shortness of breath. COMPARISON: July 10, 2018. No acute infiltrates, effusion or congestion is noted. Suboptimal inspiration with dependent changes. Ca rdiomegaly. IMPRESSION: No acute infiltrates , effusion or congestion. Suboptimal inspiration with dependent changes. at 1412 Reported and signed by: José Miguel Elias M.D. CC: Kadie Garcia MD Technol ogist: Arielle Tyson(R); Treva YODER(R) Trnscrd Date/Time/ By: 08/29/2018 (9542) : By: [email or web address] Orig Print D/T: S: 08/29/2018 (1 415) PAGE 1 Signed Report [id number] 11:42:00* Test Item Value Reference Range Interpretation Comments GLUBED (test code = GLUBED) 145 mg/dL 74-106 H Performed by certified tankage grinder operator at [facility] [id number] 06:32:00* Test Item Value Reference Range Interpretation Comments GLUBED (test code = GLUBED) 98 mg/dL 74-106 N Performed by certified tankage grinder operator at [facility] [id number] 05:15:00* Test Item Value Reference Range Interpretation Comments AMMONIA (test code = AMM) 46 umol/L 11-32 H BASIC METABOLIC [id number] 21:31:00* Test Item Value Reference Range Interpretation [...] CA) 7.5 mg/dL 8.5-10.1 L BASIC METABOLIC [id number] 21:25:00* Test Item Value Reference Range Interpretation [...] CALCIUM (test code = CA) mg/dL 8.5-10.1 [id number] 21:22:00* Test Item Value Reference Range Interpretation Comments GLUBED (test code = GLUBED) 127 mg/dL 74-106 H Performed by certified tankage grinder operator at [facility] [id number] 16:27:00* Test Item Value Reference Range Interpretation Comments GLUBED (test code = GLUBED) 117 mg/dL 74-106 H Performed by certified tankage grinder operator at [facility] [id number] 11:34:00* Test Item Value Reference Range Interpretation Comments GLUBED (test code = GLUBED) 116 mg/dL 74-106 H Performed by certified tankage grinder operator at [facility] [id number] 05:36:00* Test Item Value Reference Range Interpretation Comments GLUBED (test code = GLUBED) 100 mg/dL 74-106 N Performed by certified tankage grinder operator at [facility] [id number] 05:36:00* Test Item Value Reference Range Interpretation Comments GLUBED (test code = GLUBED) 125 mg/dL 74-106 H Performed by certified tankage grinder operator at [facility] [id number] 22:45:00* Test Item Value Reference Range Interpretation Comments TROPONIN-I (test code = TROPI) <0.015 ng/mL 0-0.045 N [id number] 17:01:00* Test Item Value Reference Range Interpretation Comments GLUBED (test code = GLUBED) 132 mg/dL 74-106 H Performed by certified tankage grinder operator at [facility] CBC W/MANUAL [id number] 15:06:00* Test Item Value Reference Range Interpretation [...] PT WENT FOR PROCEDURE PER ALEXANDER SOLIMAN @[employer].SP3 07/04/746897ZEZ W/MANUAL DIFF 2018-07-04 14:47:00* Test Item Value [...] PT WENT FOR PROCEDURE PER RN JANNY @[employer].LAB.SP3 07/04/945670- XR SMALL INTESTINE 2018-07-04 14:33:00 FAX: Gerson Roque MD [phone] [place]: B St: ADM FAX: John Motta MD [phone] Name: ALEX STANTON [facility] : 1950 Age/S: 67/F [address] Unit #: [id number] Loc: V.2078 [place] [address] Phys: Gerson Messina MD Acct: [id number] Dis Date: Status: ADM IN PHONE #: [phone] Exam Date: 07/04/2018 1226 FAX #: [phone] Reason: anemia EXAMS: CPT CODE: [id number] XR SMALL INTESTINE 11160 HISTORY: Anemia. COMPARISON: None available. Front Office Coordinator view of the abdomen demonstrating mild distention [...] Lopez Technologist: RT MINE(More) Trnscrd Date/Time/By: 07/04/2018 (3813) : By: Moira.TH4 Orig Print D/T: S: 07/04/2018 (3188) PAGE 1 Signed Report CBC W/MANUAL [id number] 13:46:00* Test Item Value Reference Range Interpretation [...] PT WENT FOR PROCEDURE PER RN JANNY @V.LAB.SP3 07/04/834782RPB W/MANUAL DIFF 2018-07-04 13:46:00* Test Item Value [...] PLTMORPH) PT WENT FOR PROCEDURE PER ALEXANDER SOLMIAN @[facility].SP3 07/04/101388EHG W/MANUAL DIFF 2018-07-04 13:46:00* Test Item Value [...] PT WENT FOR PROCEDURE PER ALEXANDER SOLIMAN @[employer].SP3 07/04/179686GSG W/MANUAL DIFF 2018-07-04 13:45:00* Test Item Value [...] PT WENT FOR PROCEDURE PER ALEXANDER SOLIMAN @[employer].SP3 07/04/304197VIB W/MANUAL DIFF 2018-07-04 13:45:00* Test Item Value [...] PT WENT FOR PROCEDURE PER ALEXANDER SOLIMAN @[employer].SP3 529921PDPPG [id number] 13:11:00* Test Item Value Reference Range Interpretation Comments SERUM IRON (test code = IRON) 82 ug/dL 50-175 N VITAMIN [id number] 13:11:00* Test Item Value Reference Range Interpretation Comments VITAMIN B12 (test code = VITB12) 878 pg/mL 193-986 N FOLIC [id number] 13:11:00* Test Item Value Reference Range Interpretation Comments FOLIC ACID (test code = FOL) 7.2 ng/mL 3.10-17.50 N [id number] 13:11:00* Test Item Value Reference Range Interpretation Comments FERRITIN (test code = NGUYỄN) 10 ng/mL 8-388 N VITAMIN D 1,81-KKZWNGOVW0384-24-07 13:11:00* Test Item Value Reference Range Interpretation Comments VITAMIN D 1,25-DIHYDROXY (test code = HBXA837) 35.4 pg/mL 19.9-79 .3 Performed At: [facility] [id number] Sanjai MD Ph:[phone] performed at: [facility] [address] [place] [address] [id number] 04:28:00* Test Item Value Reference Range Interpretation Comments GLUBED (test code = GLUBED) 137 mg/dL 74-106 H Performed by certified tankage grinder operator at [facility] [id number] 21:06:00* Test Item Value Reference Range Interpretation Comments GLUBED (test code = GLUBED) 159 mg/dL 74-106 H Performed by certified tankage grinder operator at [facility] BASIC METABOLIC [id number] 17:39:00* Test Item Value Reference Range Interpretation [...] = CA) 8.2 mg/dL 8.5-10.1 L LACTIC [id number] 17:35:00* Test Item Value Reference Range Interpretation Comments LACTIC ACID (test code = LACT) 1.7 mmol/L 0.4-1.9 N BASIC METABOLIC [id number] 17:35:00* Test Item Value Reference Range Interpretation [...] code = CA) mg/dL 8.5-10.1 CBC W/O [id number] 17:30:00* Test Item Value Reference Range Interpretation [...] code = MPV) 11.4 fL 6.7-11.0 H [id number] 17:10:00* Test Item Value Reference Range Interpretation Comments GLUBED (test code = GLUBED) 138 mg/dL 74-106 H Performed by certified tankage grinder operator at [facility] - NM ACUTE GI BLOOD [id number] 13:59:00 FAX: Gerson Roque MD [phone] [place]: B St: [facility] FAX: John Motta MD [phone] Name: ALEX STANTON [facility] : 1950 Age/S: 67/F [address] [facility] Unit #: [id number] Loc: V.4040 [place] [address] Phys: Gerson Messina MD Acct: [id number] Dis Date: Status: ADM IN PHONE #: [phone] Exam Date: 07/03/2018 1230 FAX #: [phone] Reason: ANEMIA EXAMS: CPT CODE: [id number] NM ACUTE GI BLOOD LOSS 77905 HISTORY: Anemia. COMPARISON: None available. GI bleeding [...] ormal uptake to suggest active bleed. at 1359 Reported and signed b y: José Miguel Elias M.D. CC: Gerson Messina MD; John Lopez Technologist: Lester Calvillo [facility] Trncord Date/Time/By: 07/03/2018 (1351) : By: [email or web address] Orig Print D/T: S: 07/03/2018 (4158) PAGE 1 Signed Report [id number] 13:42:00 * Test Item Value Reference Range Interpretation Comments GLUBED (test code = GLUBED) 129 mg/dL 74-106 H Performed by certified tankage grinder operator at [facility] CBC W/MANUAL [id number] 11:48:00* Test Item Value Reference Range Interpretation [...] IMMAT) 0 % 0-0 N CBC W/MANUAL [id number] 09:21:00* Test Item Value Reference Range Interpretation [...] MORPHOLOGY (test code = PLTMORPH) CBC W/MANUAL [id number] 09:21:00* Test Item Value Reference Range Interpretation [...] MORPHOLOGY (test code = PLTMORPH) CBC W/MANUAL [id number] 09:21:00* Test Item Value Reference Range Interpretation [...] MORPHOLOGY (test code = PLTMORPH) CBC W/MANUAL [id number] 09:20:00* Test Item Value Reference Range Interpretation [...] MORPHOLOGY (test code = PLTMORPH) CBC W/MANUAL [id number] 09:20:00* Test Item Value Reference Range Interpretation [...] PLTEST) PLATELET MORPHOLOGY (test code = PLTMORPH) [id number] 09:04:00* Test Item Value Reference Range Interpretation Comments GLUBED (test code = GLUBED) 190 mg/dL 74-106 H Performed by certified tankage grinder operator at [facility] [id number] 08:42:00* Test Item Value Reference Range Interpretation Comments AMMONIA (test code = AMM) 56 umol/L 11-32 H [id number] 20:47:00* Test Item Value Reference Range Interpretation Comments GLUBED (test code = GLUBED) 157 mg/dL 74-106 H Performed by certified tankage grinder operator at [facility] [id number] 18:21:00* Test Item Value Reference Range Interpretation Comments AMMONIA (test code = AMM) 69 umol/L 11-32 H [id number] 18:05:00* Test Item Value Reference Range Interpretation Comments GLUBED (test code = GLUBED) 203 mg/dL 74-106 H Performed by certified tankage grinder operator at [facility] [id number] 12:27:00* Test Item Value Reference Range Interpretation Comments GLUBED (test code = GLUBED) 263 mg/dL 74-106 H Performed by certified tankage grinder operator at [facility] CBC W/MANUAL [id number] 10:42:00* Test Item Value Reference Range Interpretation [...] IMMAT) 0 % 0-0 N CBC W/MANUAL [id number] 08:59:00* Test Item Value Reference Range Interpretation [...] MORPHOLOGY (test code = PLTMORPH) CBC W/MANUAL [id number] 08:59:00* Test Item Value Reference Range Interpretation [...] MORPHOLOGY (test code = PLTMORPH) CBC W/MANUAL [id number] 08:59:00* Test Item Value Reference Range Interpretation [...] MORPHOLOGY (test code = PLTMORPH) CBC W/MANUAL [id number] 08:59:00* Test Item Value Reference Range Interpretation [...] MORPHOLOGY (test code = PLTMORPH) CBC W/MANUAL [id number] 08:59:00* Test Item Value Reference Range Interpretation [...] PLTEST) PLATELET MORPHOLOGY (test code = PLTMORPH) [id number] 08:49:00* Test Item Value Reference Range Interpretation Comments GLUBED (test code = GLUBED) 251 mg/dL 74-106 H Performed by certified tankage grinder operator at [facility] [id number] 21:05:00* Test Item Value Reference Range Interpretation Comments GLUBED (test code = GLUBED) 165 mg/dL 74-106 H Performed by certified tankage grinder operator at [facility] [id number] 17:15:00* Test Item Value Reference Range Interpretation Comments GLUBED (test code = GLUBED) 261 mg/dL 74-106 H Performed by certified tankage grinder operator at [facility] [id number] 16:57:00* Test Item Value Reference Range Interpretation Comments GLUBED (test code = GLUBED) 258 mg/dL 74-106 H Performed by certified tankage grinder operator at [facility] SERUM [id number] 15:15:00* Test Item Value Reference Range Interpretation Comments SERUM IRON (test code = IRON) 82 ug/dL 50-175 N VITAMIN [id number] 15:15:00* Test Item Value Reference Range Interpretation Comments VITAMIN B12 (test code = VITB12) 878 pg/mL 193-986 N FOLIC [id number] 15:15:00* Test Item Value Reference Range Interpretation Comments FOLIC ACID (test code = FOL) 7.2 ng/mL 3.10-17.50 N [id number] 15:15:00* Test Item Value Reference Range Interpretation Comments FERRITIN (test code = NGUYỄN) 10 ng/mL 8-388 N VITAMIN D 1,70-SHCEDLFSP7169-29-04 15:15:00* Test Item Value Reference Range Interpretation Comments VITAMIN D 1,25-DIHYDROXY (test code = BPMX643) pgram/mL BASIC METABOLIC [id number] 14:53:00* Test Item Value Reference Range Interpretation [...] code = CA) 7.8 mg/dL 8.5-10.1 L [id number] 14:53:00* Test Item Value Reference Range Interpretation Comments AMMONIA (test code = AMM) 125 umol/L 11-32 H CBC W/AUTO [id number] 14:30:00* Test Item Value Reference Range Interpretation [...] DIFF REQUIRED (test code = MDIFF) NO [id number] 11:17:00* Test Item Value Reference Range Interpretation Comments GLUBED (test code = GLUBED) 73 mg/dL 74-106 L Performed by certified tankage grinder operator at [facility] [id number] 08:40:00* Test Item Value Reference Range Interpretation Comments GLUBED (test code = GLUBED) 103 mg/dL 74-106 N Performed by certified tankage grinder operator at [facility] [id number] 05:51:00* Test Item Value Reference Range Interpretation Comments GLUBED (test code = GLUBED) 73 mg/dL 74-106 L Performed by certified tankage grinder operator at [facility] [id number] 04:16:00* Test Item Value Reference Range Interpretation Comments GLUBED (test code = GLUBED) 26 mg/dL 74-106 LL Test performed as P.O.C. by nursing staff.Performed by certified tankage grinder [facility] Notified~Notified Nurse~ [id number] 23:32:00* Test Item Value Reference Range Interpretation Comments GLUBED (test code = GLUBED) 69 mg/dL 74-106 L Performed by certified tankage grinder operator at [facility] [id number] 23:19:00* Test Item Value Reference Range Interpretation Comments AMMONIA (test code = AMM) 61 umol/L 11-32 H URINALYSIS [id number] 23:16:00* Test Item Value Reference Range Interpretation [...] A UA PH DIPSTICK (test code = RACNHA) 5.5 5.0-8.0 UA PROTEIN DIPSTICK (test code [...] Urine Source? Clean Catch- XR CHEST 1 [id number] 23:05:00 FAX: Kadie Garcia MD [phone] [place]: St: REG Name: ALEX LANDRUM [facility] : [birth year] Age/S: 67/F [address] [facility] Unit #: [id number] Loc: [place] [address] Phys: Kadie Garcia MD Acct: [id number] Dis Date: Status: REG ER PHONE #: [phone] Exam Date: 06/30/2018 2301 FAX #: [phone] Reason: Shortness of Breath EXAMS: CPT CODE: [id number] XR CHEST 1 V 54517 EXAM: - XR CHEST 1 V LOCATION: [...] Garcia MD Tech nologist: Vickie Corrales; Wendy Tyson(R) Trnscrd Date/Ti me/By: 06/30/2018 (8108) : By: [email or web address] Orig Print D/T: S: 06/30/2018 (6289) PAGE 1 Signed Report - XR CHEST 1 [id number] 23:05:00 FAX: Kadie Garcia MD [phone] [place]: St: DIS Name: ALEX LANDRUM [facility] : [birth year] Age/S: 67/F [address] [facility] Unit #: [id number] Loc: V.2078 [place] [address] Phys: Kadie Garcia MD Acct: [id number] Dis Date: [id number] Status: DIS IN PHONE #: [phone] Exam Date: 06/30/2018 230 FAX #: [phone] Reason: Shortness of Breath EXAMS: CPT CODE: [id number] XR CHEST 1 V 57486 EXAM: - XR CHEST 1 V LOCATION: [...] CC: Kadie Garcia MD Tech nologist: Vickie Corrales(More) Trnscrd Date/Ti me/By: 06/30/2018 (6038) : By: [email or web address] Orig Print D/T: S: 06/30/2018 (1631) PAGE 1 Signed Report - CT HEAD/BRAIN W/O [id number] 22:46:00 Name: ALEX STANTON [facility] : 1950 Age/S: 67 / F [address] Unit #: [id number] Loc: [place] [address] Phys: Mari Garcia MD Acct: [id number] Di s Date: Status: REG ER PHONE #: Exam Date: 06/30/2018 2239 FAX #: Reason: CONFUSION EXAMS: CPT CODE: [id number] CT HEAD/BRAIN W/O CONT 59474 REASON FOR EXAM: CONFUSION EXAM ORDER DATE: 06/30/2018 10:28 PM Gray che M.D.: Kadie Garcia MD PROCEDURE: - CT HEAD/BRAIN [...] Cole M.D. CC: Kadie Garcia MD Technologist:Malick Arias, RT(R)(CT); [employer]IM[employer] CTDI: DLP: Trnscb Date/Time: 06/30/2018 ( 224) t.SDR.VTL Orig Print D/T: S: 06/30/2018 (2249) CTDI: DLP: PAGE 1 Signed Report B-TYPE NATRIURETIC [id number] 21:37:00* Test Item Value Reference Range Interpretation Comments B-TYPE NATRIURETIC PEPTIDE (test code = BNP) 36.23 pgram/mL 0-100 N BASIC METABOLIC [id number] 21:32:00* Test Item Value Reference Range Interpretation [...] mg/dL 74-106 LL Re sults called to [id number] by V.LAB. 06/30/18 2132Critical results verified and [...] CA) 8.0 mg/dL 8.5-10.1 L HEPATIC FUNCTION [id number] 21:32:00* Test Item Value Reference Range Interpretation [...] reference range due to change in reagent. [id number] 21:32:00* Test Item Value Reference Range Interpretation Comments LIPASE (test code = LIP) 73 U/L 73.0-393.0 N [id number] 21:32:00* Test Item Value Reference Range Interpretation Comments MAGNESIUM (test code = MAG) 2.2 mg/dL 1.8-2.4 N [id number] 21:32:00* Test Item Value Reference Range Interpretation Comments TROPONIN-I (test code = TROPI) <0.015 ng/mL 0-0.045 N BASIC METABOLIC [id number] 21:21:00* Test Item Value Reference Range Interpretation [...] CA) 8.0 mg/dL 8.5-10.1 L HEPATIC FUNCTION [id number] 21:21:00* Test Item Value Reference Range Interpretation [...] reference range due to change in reagent. [id number] 21:21:00* Test Item Value Reference Range Interpretation Comments LIPASE (test code = LIP) 73 U/L 73.0-393.0 N [id number] 21:21:00* Test Item Value Reference Range Interpretation Comments MAGNESIUM (test code = MAG) 2.2 mg/dL 1.8-2.4 N [id number] 21:21:00* Test Item Value Reference Range Interpretation Comments TROPONIN-I (test code = TROPI) <0.015 ng/mL 0-0.045 N CBC W/O [id number] 21:09:00* Test Item Value Reference Range Interpretation Comments WHITE BLOOD CELL (test code = WBC) 3.6 K/mm3 4.5-12.5 L RED BLOOD CELL (test code = RBC) 2.13 mill/mm3 3.7-5.2 L HEMOGLOBIN (test code = HGB) 6.6 gram/dL 11.5-15.5 L HEMATOCRIT (test code = HCT) 21.4 % 36.0-46.0 Results called to [id number] by V.LAB.HD1 06/30/182108Critical results verified and read back by [...] = MPV) 11.8 fL 6.7-11.0 H PROTHROMBIN [id number] 21:08:00* Test Item Value Reference Range Interpretation [...] (2.5-3.5) IS PATIENT ON ANTICOAGULANTS? NTHROMBOPLASTIN TIME [id number] 21:08:00* Test Item Value Reference Range Interpretation Comments THROMBOPLASTIN TIME PARTIAL (test code = PTT) 28.5 seconds 25.0-36. 5 N IS PATIENT ON ANTICOAGULANTS? NBASIC METABOLIC [id number] 21:07:00* Test Item Value Reference Range Interpretation [...] code = CA) mg/dL 8.5-10.1 HEPATIC FUNCTION [id number] 21:07:00* Test Item Value Reference Range Interpretation [...] TOTAL (test code = ALKP) IUnit/L 45-117 [id number] 21:07:00* Test Item Value Reference Range Interpretation Comments LIPASE (test code = LIP) U/L 73.0-393.0 [id number] 21:07:00* Test Item Value Reference Range Interpretation Comments MAGNESIUM (test code = MAG) mg/dL 1.8-2.4 [id number] 21:07:00* Test Item Value Reference Range Interpretation Comments TROPONIN-I (test code = TROPI) ng/mL 0-0.045 [id number] 16:48:00* Test Item Value Reference Range Interpretation Comments GLUBED (test code = GLUBED) 130 mg/dL 74-106 H Performed by certified tankage grinder operator at [facility] [id number] 11:41:00* Test Item Value Reference Range Interpretation Comments GLUBED (test code = GLUBED) 134 mg/dL 74-106 H Performed by certified tankage grinder operator at [facility] [id number] 07:04:00* Test Item Value Reference Range Interpretation Comments GLUBED (test code = GLUBED) 141 mg/dL 74-106 H Performed by certified tankage grinder [facility]ified [facility]~ [id number] 21:36:00* Test Item Value Reference Range Interpretation Comments GLUBED (test code = GLUBED) 229 mg/dL 74-106 H Performed by certified tankage grinder operator [facility]~ [id number] 16:49:00* Test Item Value Reference Range Interpretation Comments GLUBED (test code = GLUBED) 142 mg/dL 74-106 H Performed by certified tankage grinder operator at [facility] [id number] 12:26:00* Test Item Value Reference Range Interpretation Comments GLUBED (test code = GLUBED) 130 mg/dL 74-106 H Performed by certified tankage grinder operator at [facility] [id number] 07:00:00* Test Item Value Reference Range Interpretation Comments GLUBED (test code = GLUBED) 130 mg/dL 74-106 H Performed by certified tankage grinder operator [facility]~ COMPREHENSIVE METABOLIC [id number] 05:10:00* Test Item Value Reference Range Interpretation [...] due to change in reagent. CBC W/AUTO [id number] 04:54:00* Test Item Value Reference Range Interpretation [...] = MDIFF) NO, ONLY SCAN NEEDED DIFFERENTIAL [id number] 04:54:00* Test Item Value Reference Range Interpretation Comments STAIN ACCEPTABILITY (test code = STN ACCEPTABLE) STAIN ACCEPTABLE POLYCHROMASIA (test code = POLC) 1+ ANISOCYTOSIS (test code = ANISO) 1+ PLATELET ESTIMATE (test code = PLTEST) DECREASED PLATELET MORPHOLOGY (test code = PLTMORPH) NORMAL [id number] 04:54:00* Test Item Value Reference Range Interpretation Comments AMMONIA (test code = AMM) 125 umol/L 11-32 H COMPREHENSIVE METABOLIC [id number] 04:50:00* Test Item Value Reference Range Interpretation [...] code = ALKP) IUnit/L 45-117 CBC W/AUTO [id number] 04:38:00* Test Item Value Reference Range Interpretation [...] = MDIFF) NO, ONLY SCAN NEEDED DIFFERENTIAL [id number] 04:38:00* Test Item Value Reference Range Interpretation Comments STAIN ACCEPTABILITY (test code = STN ACCEPTABLE) CABOT RINGS (test code = CAB) MORPHOLOGY COMMENT (test code = MOC) PLATELET ESTIMATE (test code = PLTEST) PLATELET MORPHOLOGY (test code = PLTMORPH) CBC W/AUTO [id number] 04:38:00* Test Item Value Reference Range Interpretation [...] = MDIFF) NO, ONLY SCAN NEEDED DIFFERENTIAL [id number] 04:38:00* Test Item Value Reference Range Interpretation Comments STAIN ACCEPTABILITY (test code = STN ACCEPTABLE) MORPHOLOGY COMMENT (test code = MOC) PLATELET ESTIMATE (test code = PLTEST) PLATELET MORPHOLOGY (test code = PLTMORPH) CBC W/AUTO [id number] 04:38:00* Test Item Value Reference Range Interpretation [...] = MDIFF) NO, ONLY SCAN NEEDED DIFFERENTIAL [id number] 04:38:00* Test Item Value Reference Range Interpretation Comments STAIN ACCEPTABILITY (test code = STN ACCEPTABLE) MORPHOLOGY COMMENT (test code = MOC) PLATELET ESTIMATE (test code = PLTEST) PLATELET MORPHOLOGY (test code = PLTMORPH) CBC W/AUTO [id number] 04:38:00* Test Item Value Reference Range Interpretation [...] = MDIFF) NO, ONLY SCAN NEEDED DIFFERENTIAL [id number] 04:38:00* Test Item Value Reference Range Interpretation Comments STAIN ACCEPTABILITY (test code = STN ACCEPTABLE) CABOT RINGS (test code = CAB) MORPHOLOGY COMMENT (test code = MOC) PLATELET ESTIMATE (test code = PLTEST) PLATELET MORPHOLOGY (test code = PLTMORPH) [id number] 21:59:00* Test Item Value Reference Range Interpretation Comments GLUBED (test code = GLUBED) 146 mg/dL 74-106 H Performed by certified tankage grinder [facility]~ [id number] 16:11:00* Test Item Value Reference Range Interpretation Comments GLUBED (test code = GLUBED) 125 mg/dL 74-106 H Performed by certified tankage grinder operator at [facility] [id number] 06:36:00* Test Item Value Reference Range Interpretation Comments GLUBED (test code = GLUBED) 112 mg/dL 74-106 H Performed by certified tankage grinder operator [facility]~ BASIC METABOLIC [id number] 06:05:00* Test Item Value Reference Range Interpretation [...] CA) 7.8 mg/dL 8.5-10.1 L BASIC METABOLIC [id number] 05:46:00* Test Item Value Reference Range Interpretation [...] CALCIUM (test code = CA) mg/dL 8.5-10.1 [id number] 04:40:00* Test Item Value Reference Range Interpretation Comments AMMONIA (test code = AMM) 80 umol/L 11-32 H [id number] 21:50:00* Test Item Value Reference Range Interpretation Comments GLUBED (test code = GLUBED) 160 mg/dL 74-106 H Performed by certified tankage grinder operator at [facility] [id number] 16:26:00* Test Item Value Reference Range Interpretation Comments GLUBED (test code = GLUBED) 148 mg/dL 74-106 H Performed by certified tankage grinder operator at [facility] [id number] 12:22:00* Test Item Value Reference Range Interpretation Comments GLUBED (test code = GLUBED) 137 mg/dL 74-106 H Performed by certified tankage grinder operator at [facility] [id number] 12:21:00* Test Item Value Reference Range Interpretation Comments GLUBED (test code = GLUBED) 117 mg/dL 74-106 H Performed by certified tankage grinder operator at [facility] BASIC METABOLIC [id number] 05:22:00* Test Item Value Reference Range Interpretation [...] code = CA) 8.0 mg/dL 8.5-10.1 L [id number] 05:12:00* Test Item Value Reference Range Interpretation Comments AMMONIA (test code = AMM) 62 umol/L 11-32 H BASIC METABOLIC [id number] 05:11:00* Test Item Value Reference Range Interpretation [...] CALCIUM (test code = CA) mg/dL 8.5-10.1 [id number] 21:49:00* Test Item Value Reference Range Interpretation Comments GLUBED (test code = GLUBED) 92 mg/dL 74-106 N Performed by certified tankage grinder operator at [facility] [id number] 15:23:00* Test Item Value Reference Range Interpretation Comments GLUBED (test code = GLUBED) 132 mg/dL 74-106 H Performed by certified tankage grinder operator at [facility] [id number] 11:18:00* Test Item Value Reference Range Interpretation Comments GLUBED (test code = GLUBED) 187 mg/dL 74-106 H Performed by certified tankage grinder operator at [facility] - US ABDOMEN [id number] 07:37:00 Name: ALEX STANTON [facility] : 1950 Age/S: 67 / F [address] [facility] Unit #: [id number] Loc: [place] [address] Phys: Nicole Aguiar Acct: [id number] Dis Date: Status: ADM IN PHONE #: [phone] Exam Date: 04/20/2018 0019 FAX #: [phone] Reason: us abd screen for ascites EXAMS: CPT CODE: [id number] US ABDOMEN LTD 95735 EXAM: Ultrasound abdomen, limited; INFORMATION: HISTORY of [...] Lopez; Nicole Aguiar Technologist: SOREN WONG RDMS Trnscb Date/Time: 04/20/2018 (0737) [place] Orig Print D/T: S: 04/20/2018 (0748) Probe: PAGE 1 Signed Report CBC W/AUTO [id number] 06:56:00* Test Item Value Reference Range Interpretation [...] = MDIFF) NO, ONLY SCAN NEEDED DIFFERENTIAL [id number] 06:56:00* Test Item Value Reference Range Interpretation Comments STAIN ACCEPTABILITY (test code = STN ACCEPTABLE) STAIN ACCEPTABLE PLATELET ESTIMATE (test code = PLTEST) DECREASED PLATELET MORPHOLOGY (test code = PLTMORPH) NORMAL BASIC METABOLIC [id number] 06:02:00* Test Item Value Reference Range Interpretation [...] CA) 7.9 mg/dL 8.5-10.1 L BASIC METABOLIC [id number] 05:58:00* Test Item Value Reference Range Interpretation [...] CALCIUM (test code = CA) mg/dL 8.5-10.1 [id number] 05:45:00* Test Item Value Reference Range Interpretation Comments GLUBED (test code = GLUBED) 114 mg/dL 74-106 H Performed by certified tankage grinder operator at [facility] CBC W/AUTO [id number] 05:36:00* Test Item Value Reference Range Interpretation [...] = MDIFF) NO, ONLY SCAN NEEDED DIFFERENTIAL [id number] 05:36:00* Test Item Value Reference Range Interpretation Comments STAIN ACCEPTABILITY (test code = STN ACCEPTABLE) CABOT RINGS (test code = CAB) MORPHOLOGY COMMENT (test code = MOC) PLATELET ESTIMATE (test code = PLTEST) PLATELET MORPHOLOGY (test code = PLTMORPH) CBC W/AUTO [id number] 05:36:00* Test Item Value Reference Range Interpretation [...] = MDIFF) NO, ONLY SCAN NEEDED DIFFERENTIAL [id number] 05:36:00* Test Item Value Reference Range Interpretation Comments STAIN ACCEPTABILITY (test code = STN ACCEPTABLE) CABOT RINGS (test code = CAB) MORPHOLOGY COMMENT (test code = MOC) PLATELET ESTIMATE (test code = PLTEST) PLATELET MORPHOLOGY (test code = PLTMORPH) CBC W/AUTO [id number] 05:36:00* Test Item Value Reference Range Interpretation [...] = MDIFF) NO, ONLY SCAN NEEDED DIFFERENTIAL [id number] 05:36:00* Test Item Value Reference Range Interpretation Comments STAIN ACCEPTABILITY (test code = STN ACCEPTABLE) MORPHOLOGY COMMENT (test code = MOC) PLATELET ESTIMATE (test code = PLTEST) PLATELET MORPHOLOGY (test code = PLTMORPH) CBC W/AUTO [id number] 05:36:00* Test Item Value Reference Range Interpretation [...] = MDIFF) NO, ONLY SCAN NEEDED DIFFERENTIAL [id number] 05:36:00* Test Item Value Reference Range Interpretation Comments STAIN ACCEPTABILITY (test code = STN ACCEPTABLE) CABOT RINGS (test code = CAB) MORPHOLOGY COMMENT (test code = MOC) PLATELET ESTIMATE (test code = PLTEST) PLATELET MORPHOLOGY (test code = PLTMORPH) [id number] 05:16:00* Test Item Value Reference Range Interpretation Comments AMMONIA (test code = AMM) 91 umol/L 11-32 H ACUTE HEPATITIS [id number] 04:11:00* Test Item Value Reference Range Interpretation [...] with a HCV Nucleic Acid Amplification test ([id number]).Performed At: [facility] [id number] Lawson Walker MD Ph:[phone] [id number] 20:46:00* Test Item Value Reference Range Interpretation Comments GLUBED (test code = GLUBED) 121 mg/dL 74-106 H Performed by certified tankage grinder operator at [facility] BASIC METABOLIC [id number] 18:53:00* Test Item Value Reference Range Interpretation [...] code = CA) 7.9 mg/dL 8.5-10.1 L [id number] 16:18:00* Test Item Value Reference Range Interpretation Comments GLUBED (test code = GLUBED) 102 mg/dL 74-106 N Performed by certified tankage grinder operator at [facility] [id number] 12:14:00* Test Item Value Reference Range Interpretation Comments GLUBED (test code = GLUBED) 154 mg/dL 74-106 H Performed by certified tankage grinder operator at [facility] CBC W/AUTO [id number] 10:20:00* Test Item Value Reference Range Interpretation [...] = MDIFF) NO, ONLY SCAN NEEDED DIFFERENTIAL [id number] 10:20:00* Test Item Value Reference Range Interpretation Comments STAIN ACCEPTABILITY (test code = STN ACCEPTABLE) STAIN ACCEPTABLE HYPOCHROMIA (test code = HYPO) 1+ ANISOCYTOSIS (test code = ANISO) 1+ MACROCYTOSIS (test code = MACR) 1+ PLATELET ESTIMATE (test code = PLTEST) DECREASED PLATELET MORPHOLOGY (test code = PLTMORPH) NORMAL [id number] 07:50:00* Test Item Value Reference Range Interpretation Comments GLUBED (test code = GLUBED) 104 mg/dL 74-106 N Performed by certified tankage grinder operator at [facility] CBC W/AUTO [id number] 07:21:00* Test Item Value Reference Range Interpretation [...] = MDIFF) NO, ONLY SCAN NEEDED DIFFERENTIAL [id number] 07:21:00* Test Item Value Reference Range Interpretation Comments STAIN ACCEPTABILITY (test code = STN ACCEPTABLE) CABOT RINGS (test code = CAB) MORPHOLOGY COMMENT (test code = MOC) PLATELET ESTIMATE (test code = PLTEST) PLATELET MORPHOLOGY (test code = PLTMORPH) CBC W/AUTO [id number] 07:21:00* Test Item Value Reference Range Interpretation [...] = MDIFF) NO, ONLY SCAN NEEDED DIFFERENTIAL [id number] 07:21:00* Test Item Value Reference Range Interpretation Comments STAIN ACCEPTABILITY (test code = STN ACCEPTABLE) CABOT RINGS (test code = CAB) MORPHOLOGY COMMENT (test code = MOC) PLATELET ESTIMATE (test code = PLTEST) PLATELET MORPHOLOGY (test code = PLTMORPH) CBC W/AUTO [id number] 07:21:00* Test Item Value Reference Range Interpretation [...] = MDIFF) NO, ONLY SCAN NEEDED DIFFERENTIAL [id number] 07:21:00* Test Item Value Reference Range Interpretation Comments STAIN ACCEPTABILITY (test code = STN ACCEPTABLE) MORPHOLOGY COMMENT (test code = MOC) PLATELET ESTIMATE (test code = PLTEST) PLATELET MORPHOLOGY (test code = PLTMORPH) CBC W/AUTO [id number] 07:21:00* Test Item Value Reference Range Interpretation [...] = MDIFF) NO, ONLY SCAN NEEDED DIFFERENTIAL [id number] 07:21:00* Test Item Value Reference Range Interpretation Comments STAIN ACCEPTABILITY (test code = STN ACCEPTABLE) CABOT RINGS (test code = CAB) MORPHOLOGY COMMENT (test code = MOC) PLATELET ESTIMATE (test code = PLTEST) PLATELET MORPHOLOGY (test code = PLTMORPH) BASIC METABOLIC [id number] 07:19:00* Test Item Value Reference Range Interpretation [...] code = CA) 8.0 mg/dL 8.5-10.1 L [id number] 06:45:00* Test Item Value Reference Range Interpretation Comments AMMONIA (test code = AMM) 103 umol/L 11-32 H ARTERIAL BLOOD [id number] 18:47:00* Test Item Value Reference Range Interpretation [...] by Violette MCGOVERN 18:46 04/18/2018; by [employer] [facility] O2 SATURATION (test [...] = O2CT) 14.3 % vol 18.0-22.0 L [id number] 17:30:00* Test Item Value Reference Range Interpretation Comments GLUBED (test code = GLUBED) 78 mg/dL 74-106 N Performed by certified tankage grinder operator at [facility] B-TYPE NATRIURETIC [id number] 09:37:00* Test Item Value Reference Range Interpretation Comments B-TYPE NATRIURETIC PEPTIDE (test code = BNP) 8.63 pgram/mL 0-100 N URINALYSIS [id number] 09:18:00* Test Item Value Reference Range Interpretation [...] Urine Source? Clean CatchDRUGS OF ABUSE SCREEN [id number] 09:18:00* Test Item Value Reference Range Interpretation [...] NEGATIVE <300 ng/mL Urine Source? Clean CatchURINALYSIS [id number] 09:12:00* Test Item Value Reference Range Interpretation [...] Urine Source? Clean CatchDRUGS OF ABUSE SCREEN [id number] 09:12:00* Test Item Value Reference Range Interpretation [...] NEGATIVE <300 ng/mL Urine Source? Clean CatchURINALYSIS [id number] 08:58:00* Test Item Value Reference Range Interpretation [...] Urine Source? Clean CatchDRUGS OF ABUSE SCREEN [id number] 08:58:00* Test Item Value Reference Range Interpretation [...] <300 ng/mL Urine Source? Clean CatchBASIC METABOLIC [id number] 08:57:00* Test Item Value Reference Range Interpretation [...] CA) 7.5 mg/dL 8.5-10.1 L HEPATIC FUNCTION [id number] 08:57:00* Test Item Value Reference Range Interpretation [...] reference range due to change in reagent. [id number] 08:57:00* Test Item Value Reference Range Interpretation Comments TROPONIN-I (test code = TROPI) <0.015 ng/mL 0-0.045 N [id number] 08:57:00* Test Item Value Reference Range Interpretation Comments ACETAMINOPHEN (test code = ACET) < 10 mcg/mL 10-30 L A RANGE OF 10-30 mcg/mL IS A THERAPEUTIC RANGE. TOXIC CONCENTRATIONS: >150 mcg/mL AT 4 HOURS AFTER INGESTION >= 50 mcg/mL AT 12 HOURS AFTER INGESTION [id number] 08:57:00* Test Item Value Reference Range Interpretation Comments SALICYLATE (test code = LUNA) < 1.7 mg/dL 2.8-20.0 L [id number] 08:57:00* Test Item Value Reference Range Interpretation [...] ANADDITIONAL CHARGE TO THE PATIENT. CBC W/AUTO [id number] 08:53:00* Test Item Value Reference Range Interpretation [...] = MDIFF) NO, ONLY SCAN NEEDED DIFFERENTIAL [id number] 08:53:00* Test Item Value Reference Range Interpretation Comments STAIN ACCEPTABILITY (test code = STN ACCEPTABLE) STAIN ACCEPTABLE ANISOCYTOSIS (test code = ANISO) 1+ MACROCYTOSIS (test code = MACR) 1+ PLATELET ESTIMATE (test code = PLTEST) DECREASED PLATELET MORPHOLOGY (test code = PLTMORPH) SIZE VARIABLE [id number] 08:44:00* Test Item Value Reference Range Interpretation Comments AMMONIA (test code = AMM) 268 umol/L 11-32 H BASIC METABOLIC [id number] 08:43:00* Test Item Value Reference Range Interpretation [...] code = CA) mg/dL 8.5-10.1 HEPATIC FUNCTION [id number] 08:43:00* Test Item Value Reference Range Interpretation [...] TOTAL (test code = ALKP) IUnit/L 45-117 [id number] 08:43:00* Test Item Value Reference Range Interpretation Comments TROPONIN-I (test code = TROPI) ng/mL 0-0.045 [id number] 08:43:00* Test Item Value Reference Range Interpretation Comments ACETAMINOPHEN (test code = ACET) mcg/mL 10-30 [id number] 08:43:00* Test Item Value Reference Range Interpretation Comments SALICYLATE (test code = LUNA) mg/dL 2.8-20.0 [id number] 08:43:00* Test Item Value Reference Range Interpretation Comments ALCOHOL (test code = ALC) mg/dL 0-3 PROTHROMBIN [id number] 08:40:00* Test Item Value Reference Range Interpretation [...] (2.5-3.5) IS PATIENT ON ANTICOAGULANTS? NTHROMBOPLASTIN TIME [id number] 08:40:00* Test Item Value Reference Range Interpretation Comments THROMBOPLASTIN TIME PARTIAL (test code = PTT) 30.5 seconds 25.0-36. 5 N IS PATIENT ON ANTICOAGULANTS? [id number] 08:33:00* Test Item Value Reference Range Interpretation Comments GLUBED (test code = GLUBED) 192 mg/dL 74-106 H Performed by certified tankage grinder operator at [facility] - CT HEAD/BRAIN W/O [id number] 08:14:00 Name: ALEX STANTON [facility] : 1950 Age/S: 67 / F [address] [facility] Unit #: [id number] Loc: [place] [address] Phys: Xavier Davila MD Acct: [id number] Dis Date: Status: REG ER PHONE #: [phone] Exam Date: 04/18/2018 0749 FAX #: [phone] Reason: Altered Mental Status EXAMS: CPT CODE: [id number] CT HEAD/BRAIN W/O CONT 09527 HISTORY: Confusion COMPARISON: March 22, 2018. CT [...] RT(R),(MR),(CT); CTDI: DLP: Trnscb Date/Time: 04/18/2018 (813) [email or web address] Orig Print D/T: S: 04/18/2018 (08) CTDI: DLP: PAGE 1 Signed Report CBC W/AUTO [id number] 08:12:00* Test Item Value Reference Range Interpretation [...] = MDIFF) NO, ONLY SCAN NEEDED DIFFERENTIAL [id number] 08:12:00* Test Item Value Reference Range Interpretation Comments STAIN ACCEPTABILITY (test code = STN ACCEPTABLE) CABOT RINGS (test code = CAB) MORPHOLOGY COMMENT (test code = MOC) PLATELET ESTIMATE (test code = PLTEST) PLATELET MORPHOLOGY (test code = PLTMORPH) CBC W/AUTO [id number] 08:12:00* Test Item Value Reference Range Interpretation [...] = MDIFF) NO, ONLY SCAN NEEDED DIFFERENTIAL [id number] 08:12:00* Test Item Value Reference Range Interpretation Comments STAIN ACCEPTABILITY (test code = STN ACCEPTABLE) CABOT RINGS (test code = CAB) MORPHOLOGY COMMENT (test code = MOC) PLATELET ESTIMATE (test code = PLTEST) PLATELET MORPHOLOGY (test code = PLTMORPH) CBC W/AUTO [id number] 08:12:00* Test Item Value Reference Range Interpretation [...] = MDIFF) NO, ONLY SCAN NEEDED DIFFERENTIAL [id number] 08:12:00* Test Item Value Reference Range Interpretation Comments STAIN ACCEPTABILITY (test code = STN ACCEPTABLE) MORPHOLOGY COMMENT (test code = MOC) PLATELET ESTIMATE (test code = PLTEST) PLATELET MORPHOLOGY (test code = PLTMORPH) CBC W/AUTO [id number] 08:12:00* Test Item Value Reference Range Interpretation [...] = MDIFF) NO, ONLY SCAN NEEDED DIFFERENTIAL [id number] 08:12:00* Test Item Value Reference Range Interpretation Comments STAIN ACCEPTABILITY (test code = STN ACCEPTABLE) CABOT RINGS (test code = CAB) MORPHOLOGY COMMENT (test code = MOC) PLATELET ESTIMATE (test code = PLTEST) PLATELET MORPHOLOGY (test code = PLTMORPH) - XR CHEST 1 [id number] 07:35:00 FAX: Xavier Davila [place]: B St: REG FAX: John Motta MD [phone] Name: ALEX STANTON [facility] : 1950 Age/S: 67/F [address] Unit #: [id number] Loc: [place] [address] Phys: Xavier Davila MD Acct: [id number] Dis Date: Status: REG ER PHONE #: [phone] Exam Date: 04/18/2018 0725 FAX #: [phone] Reason: Altered Mental Status EXAMS: CPT CODE: [id number] XR CHEST 1 V 64658 EXAM: Chest x-ray, one view; INFORMATION: Altered [...] S: 04/18/2018 (0738) PAGE 1 Signed Report [id number] 16:52:00* Test Item Value Reference Range Interpretation Comments GLUBED (test code = GLUBED) 221 mg/dL 74-106 H Performed by certified tankage grinder operator at [facility] BASIC METABOLIC [id number] 11:02:00* Test Item Value Reference Range Interpretation [...] CA) 7.7 mg/dL 8.5-10.1 L BASIC METABOLIC [id number] 10:52:00* Test Item Value Reference Range Interpretation [...] code = CA) mg/dL 8.5-10.1 CBC W/AUTO [id number] 05:23:00* Test Item Value Reference Range Interpretation [...] = MDIFF) NO, ONLY SCAN NEEDED DIFFERENTIAL [id number] 05:23:00* Test Item Value Reference Range Interpretation Comments STAIN ACCEPTABILITY (test code = STN ACCEPTABLE) STAIN ACCEPTABLE ANISOCYTOSIS (test code = ANISO) 1+ PLATELET ESTIMATE (test code = PLTEST) DECREASED PLATELET MORPHOLOGY (test code = PLTMORPH) SIZE VARIABLE CBC W/AUTO [id number] 04:55:00* Test Item Value Reference Range Interpretation [...] = MDIFF) NO, ONLY SCAN NEEDED DIFFERENTIAL [id number] 04:55:00* Test Item Value Reference Range Interpretation Comments STAIN ACCEPTABILITY (test code = STN ACCEPTABLE) CABOT RINGS (test code = CAB) MORPHOLOGY COMMENT (test code = MOC) PLATELET ESTIMATE (test code = PLTEST) PLATELET MORPHOLOGY (test code = PLTMORPH) CBC W/AUTO [id number] 04:55:00* Test Item Value Reference Range Interpretation [...] = MDIFF) NO, ONLY SCAN NEEDED DIFFERENTIAL [id number] 04:55:00* Test Item Value Reference Range Interpretation Comments STAIN ACCEPTABILITY (test code = STN ACCEPTABLE) MORPHOLOGY COMMENT (test code = MOC) PLATELET ESTIMATE (test code = PLTEST) PLATELET MORPHOLOGY (test code = PLTMORPH) CBC W/AUTO [id number] 04:55:00* Test Item Value Reference Range Interpretation [...] = MDIFF) NO, ONLY SCAN NEEDED DIFFERENTIAL [id number] 04:55:00* Test Item Value Reference Range Interpretation Comments STAIN ACCEPTABILITY (test code = STN ACCEPTABLE) MORPHOLOGY COMMENT (test code = MOC) PLATELET ESTIMATE (test code = PLTEST) PLATELET MORPHOLOGY (test code = PLTMORPH) CBC W/AUTO [id number] 04:55:00* Test Item Value Reference Range Interpretation [...] = MDIFF) NO, ONLY SCAN NEEDED DIFFERENTIAL [id number] 04:55:00* Test Item Value Reference Range Interpretation Comments STAIN ACCEPTABILITY (test code = STN ACCEPTABLE) CABOT RINGS (test code = CAB) MORPHOLOGY COMMENT (test code = MOC) PLATELET ESTIMATE (test code = PLTEST) PLATELET MORPHOLOGY (test code = PLTMORPH) [id number] 20:45:00* Test Item Value Reference Range Interpretation Comments GLUBED (test code = GLUBED) 124 mg/dL 74-106 H Performed by certified tankage grinder operator at [facility] [id number] 17:04:00* Test Item Value Reference Range Interpretation Comments GLUBED (test code = GLUBED) 93 mg/dL 74-106 N Performed by certified tankage grinder operator at [facility] [id number] 12:50:00* Test Item Value Reference Range Interpretation Comments GLUBED (test code = GLUBED) 144 mg/dL 74-106 H Performed by certified tankage grinder operator at [facility] [id number] 12:38:00* Test Item Value Reference Range Interpretation Comments AMMONIA (test code = AMM) 117 umol/L 11-32 H [id number] 08:41:00* Test Item Value Reference Range Interpretation Comments GLUBED (test code = GLUBED) 99 mg/dL 74-106 N Performed by certified tankage grinder operator at [facility] CBC W/AUTO [id number] 06:01:00* Test Item Value Reference Range Interpretation [...] = MDIFF) NO, ONLY SCAN NEEDED DIFFERENTIAL [id number] 06:01:00* Test Item Value Reference Range Interpretation Comments STAIN ACCEPTABILITY (test code = STN ACCEPTABLE) STAIN ACCEPTABLE ANISOCYTOSIS (test code = ANISO) 1+ PLATELET ESTIMATE (test code = PLTEST) DECREASED PLATELET MORPHOLOGY (test code = PLTMORPH) NORMAL CBC W/AUTO [id number] 05:44:00* Test Item Value Reference Range Interpretation [...] = MDIFF) NO, ONLY SCAN NEEDED DIFFERENTIAL [id number] 05:44:00* Test Item Value Reference Range Interpretation Comments STAIN ACCEPTABILITY (test code = STN ACCEPTABLE) CABOT RINGS (test code = CAB) MORPHOLOGY COMMENT (test code = MOC) PLATELET ESTIMATE (test code = PLTEST) PLATELET MORPHOLOGY (test code = PLTMORPH) CBC W/AUTO [id number] 05:44:00* Test Item Value Reference Range Interpretation [...] = MDIFF) NO, ONLY SCAN NEEDED DIFFERENTIAL [id number] 05:44:00* Test Item Value Reference Range Interpretation Comments STAIN ACCEPTABILITY (test code = STN ACCEPTABLE) CABOT RINGS (test code = CAB) MORPHOLOGY COMMENT (test code = MOC) PLATELET ESTIMATE (test code = PLTEST) PLATELET MORPHOLOGY (test code = PLTMORPH) CBC W/AUTO [id number] 05:44:00* Test Item Value Reference Range Interpretation [...] = MDIFF) NO, ONLY SCAN NEEDED DIFFERENTIAL [id number] 05:44:00* Test Item Value Reference Range Interpretation Comments STAIN ACCEPTABILITY (test code = STN ACCEPTABLE) MORPHOLOGY COMMENT (test code = MOC) PLATELET ESTIMATE (test code = PLTEST) PLATELET MORPHOLOGY (test code = PLTMORPH) CBC W/AUTO [id number] 05:44:00* Test Item Value Reference Range Interpretation [...] = MDIFF) NO, ONLY SCAN NEEDED DIFFERENTIAL [id number] 05:44:00* Test Item Value Reference Range Interpretation Comments STAIN ACCEPTABILITY (test code = STN ACCEPTABLE) CABOT RINGS (test code = CAB) MORPHOLOGY COMMENT (test code = MOC) PLATELET ESTIMATE (test code = PLTEST) PLATELET MORPHOLOGY (test code = PLTMORPH) [id number] 20:59:00* Test Item Value Reference Range Interpretation Comments GLUBED (test code = GLUBED) 125 mg/dL 74-106 H Performed by certified tankage grinder operator at [facility] [id number] 16:43:00* Test Item Value Reference Range Interpretation Comments GLUBED (test code = GLUBED) 162 mg/dL 74-106 H Performed by certified tankage grinder operator at [facility] [id number] 11:57:00* Test Item Value Reference Range Interpretation Comments GLUBED (test code = GLUBED) 162 mg/dL 74-106 H Performed by certified tankage grinder operator at [facility] CBC W/AUTO [id number] 08:43:00* Test Item Value Reference Range Interpretation [...] = MDIFF) NO, ONLY SCAN NEEDED DIFFERENTIAL [id number] 08:43:00* Test Item Value Reference Range Interpretation Comments STAIN ACCEPTABILITY (test code = STN ACCEPTABLE) STAIN ACCEPTABLE POLYCHROMASIA (test code = POLC) 1+ ANISOCYTOSIS (test code = ANISO) 1+ MACROCYTOSIS (test code = MACR) 1+ PLATELET ESTIMATE (test code = PLTEST) DECREASED PLATELET MORPHOLOGY (test code = PLTMORPH) NORMAL [id number] 08:23:00* Test Item Value Reference Range Interpretation Comments GLUBED (test code = GLUBED) 129 mg/dL 74-106 H Performed by certified tankage grinder operator at [facility] [id number] 08:06:00* Test Item Value Reference Range Interpretation Comments GLUBED (test code = GLUBED) 125 mg/dL 74-106 H Performed by certified tankage grinder operator at [facility] CBC W/AUTO [id number] 07:35:00* Test Item Value Reference Range Interpretation [...] = MDIFF) NO, ONLY SCAN NEEDED DIFFERENTIAL [id number] 07:35:00* Test Item Value Reference Range Interpretation Comments STAIN ACCEPTABILITY (test code = STN ACCEPTABLE) CABOT RINGS (test code = CAB) MORPHOLOGY COMMENT (test code = MOC) PLATELET ESTIMATE (test code = PLTEST) PLATELET MORPHOLOGY (test code = PLTMORPH) CBC W/AUTO [id number] 07:35:00* Test Item Value Reference Range Interpretation [...] = MDIFF) NO, ONLY SCAN NEEDED DIFFERENTIAL [id number] 07:35:00* Test Item Value Reference Range Interpretation Comments STAIN ACCEPTABILITY (test code = STN ACCEPTABLE) CABOT RINGS (test code = CAB) MORPHOLOGY COMMENT (test code = MOC) PLATELET ESTIMATE (test code = PLTEST) PLATELET MORPHOLOGY (test code = PLTMORPH) CBC W/AUTO [id number] 07:35:00* Test Item Value Reference Range Interpretation [...] = MDIFF) NO, ONLY SCAN NEEDED DIFFERENTIAL [id number] 07:35:00* Test Item Value Reference Range Interpretation Comments STAIN ACCEPTABILITY (test code = STN ACCEPTABLE) MORPHOLOGY COMMENT (test code = MOC) PLATELET ESTIMATE (test code = PLTEST) PLATELET MORPHOLOGY (test code = PLTMORPH) CBC W/AUTO [id number] 07:35:00* Test Item Value Reference Range Interpretation [...] = MDIFF) NO, ONLY SCAN NEEDED DIFFERENTIAL [id number] 07:35:00* Test Item Value Reference Range Interpretation Comments STAIN ACCEPTABILITY (test code = STN ACCEPTABLE) CABOT RINGS (test code = CAB) MORPHOLOGY COMMENT (test code = MOC) PLATELET ESTIMATE (test code = PLTEST) PLATELET MORPHOLOGY (test code = PLTMORPH) [id number] 20:37:00* Test Item Value Reference Range Interpretation Comments GLUBED (test code = GLUBED) 140 mg/dL 74-106 H Performed by certified tankage grinder operator at [facility] [id number] 12:48:00* Test Item Value Reference Range Interpretation Comments GLUBED (test code = GLUBED) 116 mg/dL 74-106 H Performed by certified tankage grinder operator at [facility] CBC W/AUTO [id number] 12:16:00* Test Item Value Reference Range Interpretation [...] MDIFF) NO, ONLY SCAN NEEDED 04/08/18 0803DIFFERENTIAL [id number] 12:16:00* Test Item Value Reference Range Interpretation Comments STAIN ACCEPTABILITY (test code = STN ACCEPTABLE) STAIN ACCEPTABLE POLYCHROMASIA (test code = POLC) 1+ PLATELET ESTIMATE (test code = PLTEST) DECREASED PLATELET MORPHOLOGY (test code = PLTMORPH) NORMAL 04/08/18 [id number] 11:52:00* Test Item Value Reference Range Interpretation Comments GLUBED (test code = GLUBED) 91 mg/dL 74-106 N Performed by certified tankage grinder operator at [facility] BASIC METABOLIC [id number] 11:13:00* Test Item Value Reference Range Interpretation [...] = CA) 7.7 mg/dL 8.5-10.1 L 04/08/18 0802CBC W/AUTO [id number] 10:31:00* Test Item Value Reference Range Interpretation [...] MDIFF) NO, ONLY SCAN NEEDED 04/08/18 0803DIFFERENTIAL [id number] 10:31:00* Test Item Value Reference Range Interpretation Comments STAIN ACCEPTABILITY (test code = STN ACCEPTABLE) CABOT RINGS (test code = CAB) MORPHOLOGY COMMENT (test code = MOC) PLATELET ESTIMATE (test code = PLTEST) PLATELET MORPHOLOGY (test code = PLTMORPH) 04/08/18 0803CBC W/AUTO [id number] 10:31:00* Test Item Value Reference Range Interpretation [...] code = MDIFF) NO, ONLY SCAN NEEDED 04/08/18802DIFFERENTIAL [id number] 10:31:00* Test Item Value Reference Range Interpretation Comments STAIN ACCEPTABILITY (test code = STN ACCEPTABLE) MORPHOLOGY COMMENT (test code = MOC) PLATELET ESTIMATE (test code = PLTEST) PLATELET MORPHOLOGY (test code = PLTMORPH) 04/08/18 08CBC W/AUTO [id number] 10:31:00* Test Item Value Reference Range Interpretation [...] MDIFF) NO, ONLY SCAN NEEDED 04/08/18 0803DIFFERENTIAL [id number] 10:31:00* Test Item Value Reference Range Interpretation Comments STAIN ACCEPTABILITY (test code = STN ACCEPTABLE) MORPHOLOGY COMMENT (test code = MOC) PLATELET ESTIMATE (test code = PLTEST) PLATELET MORPHOLOGY (test code = PLTMORPH) 04/08/18 0803CBC W/AUTO [id number] 10:31:00* Test Item Value Reference Range Interpretation [...] MDIFF) NO, ONLY SCAN NEEDED 04/08/18 0803DIFFERENTIAL [id number] 10:31:00* Test Item Value Reference Range Interpretation Comments STAIN ACCEPTABILITY (test code = STN ACCEPTABLE) CABOT RINGS (test code = CAB) MORPHOLOGY COMMENT (test code = MOC) PLATELET ESTIMATE (test code = PLTEST) PLATELET MORPHOLOGY (test code = PLTMORPH) 04/08/18 0803HGB [id number] 04:10:00* Test Item Value Reference Range Interpretation Comments HEMOGLOBIN (test code = HGB) 6.6 gram/dL 11.5-15.5 L HEMATOCRIT (test code = HCT) 21.9 % 36.0-46.0 L Results called to [id number] by VCHAPIN 04/08/18 0410Critical results verified and read back by Nurse? Y FT5JLMLW METABOLIC [id number] 16:10:00* Test Item Value Reference Range Interpretation [...] CA) 8.1 mg/dL 8.5-10.1 L HEPATIC FUNCTION [id number] 16:10:00* Test Item Value Reference Range Interpretation [...] reference range due to change in reagent. [id number] 16:10:00* Test Item Value Reference Range Interpretation Comments TROPONIN-I (test code = TROPI) <0.015 ng/mL 0-0.045 N BASIC METABOLIC [id number] 15:55:00* Test Item Value Reference Range Interpretation [...] code = CA) mg/dL 8.5-10.1 HEPATIC FUNCTION [id number] 15:55:00* Test Item Value Reference Range Interpretation [...] TOTAL (test code = ALKP) IUnit/L 45-117 [id number] 15:55:00* Test Item Value Reference Range Interpretation Comments TROPONIN-I (test code = TROPI) ng/mL 0-0.045 PROTHROMBIN [id number] 14:08:00* Test Item Value Reference Range Interpretation [...] (2.5-3.5) IS PATIENT ON ANTICOAGULANTS? NTHROMBOPLASTIN TIME [id number] 14:08:00* Test Item Value Reference Range Interpretation Comments THROMBOPLASTIN TIME PARTIAL (test code = PTT) 22.3 seconds 25.0-36. 5 L IS PATIENT ON ANTICOAGULANTS? NCBC W/O [id number] 14:00:00* Test Item Value Reference Range Interpretation Comments WHITE BLOOD CELL (test code = WBC) 3.1 K/mm3 4.5-12.5 L RED BLOOD CELL (test code = RBC) 2.09 mill/mm3 3.7-5.2 L HEMOGLOBIN (test code = HGB) 6.3 gram/dL 11.5-15.5 L RESULT VERIFIED BY REPEAT ANALYSIS HEMATOCRIT (test code = HCT) 20.5 % 36.0-46.0 LL Results called to [id number] by MATTIE 04/07/18 1359Critical results verified and [...] fL 6.7-11.0 H - XR CHEST 1 [id number] 13:37:00 FAX: Drew Muñoz DO [place]: St: PRE Name: ALEX LANDRUM [facility] : 09[birth year] Age/S: 67/F [address] [facility] Unit #: [id number] Loc: [place] [address] Phys: Drew Muñoz DO Acct: [id number] Dis Date: Status: PRE ER PHONE #: [phone] Exam Date: 04/07/2018 1326 FAX #: [phone] Reason: CHEST PAIN EXAMS: CPT CODE: [id number] XR CHEST 1 V 39823 HISTORY: Chest pain. COMPARISON: March 22, 2018. No acute infiltrates, effusion or c ongestion is noted. Suboptimal inspiration. Dependent changes. Cardiomegaly. IMPRESSION: No acute infi ltrates, effusion or congestion. at 3106 Reported and signed by: Stuart Elias M.D. CC: Drew Muñoz DO Technologist: Inder Olmstead RT(R) Trnscrd Date/Time/By: 04/07/2018 (5763) : By: [email or web address] Orig Print D/T: S: 04/07/2018 (4521) PAGE 1 Signed Report SERUM [id number] 13:16:00* Test Item Value Reference Range Interpretation Comments SERUM IRON (test code = IRON) 43 ug/dL 50-175 L VITAMIN [id number] 13:16:00* Test Item Value Reference Range Interpretation Comments VITAMIN B12 (test code = VITB12) 1015 pg/mL 193-986 H FOLIC [id number] 13:16:00* Test Item Value Reference Range Interpretation Comments FOLIC ACID (test code = FOL) 6.4 ng/mL 3.10-17.50 N [id number] 13:16:00* Test Item Value Reference Range Interpretation Comments FERRITIN (test code = NGUYỄN) 16 ng/mL 8-388 N VITAMIN D 1,37-[id number] 13:16:00* Test Item Value Reference Range Interpretation Comments VITAMIN D 1,25-DIHYDROXY (test code = LRTO778) 22.9 pg/mL 19.9-79 .3 Performed At: [address] [id number] Sanjai MD Ph:[id number] performed at: [facility] [address] [place] [address] [id number] 16:18:00* Test Item Value Reference Range Interpretation Comments GLUBED (test code = GLUBED) 124 mg/dL 74-106 H Performed by certified tankage grinder operator at [facility] CBC W/AUTO [id number] 13:35:00* Test Item Value Reference Range Interpretation [...] = MDIFF) NO, ONLY SCAN NEEDED DIFFERENTIAL [id number] 13:35:00* Test Item Value Reference Range Interpretation Comments STAIN ACCEPTABILITY (test code = STN ACCEPTABLE) STAIN ACCEPTABLE POLYCHROMASIA (test code = POLC) 1+ HYPOCHROMIA (test code = HYPO) 1+ ANISOCYTOSIS (test code = ANISO) 1+ PLATELET ESTIMATE (test code = PLTEST) DECREASED PLATELET MORPHOLOGY (test code = PLTMORPH) NORMAL CBC W/AUTO [id number] 12:40:00* Test Item Value Reference Range Interpretation [...] = MDIFF) NO, ONLY SCAN NEEDED DIFFERENTIAL [id number] 12:40:00* Test Item Value Reference Range Interpretation Comments STAIN ACCEPTABILITY (test code = STN ACCEPTABLE) CABOT RINGS (test code = CAB) MORPHOLOGY COMMENT (test code = MOC) PLATELET ESTIMATE (test code = PLTEST) PLATELET MORPHOLOGY (test code = PLTMORPH) CBC W/AUTO [id number] 12:40:00* Test Item Value Reference Range Interpretation [...] = MDIFF) NO, ONLY SCAN NEEDED DIFFERENTIAL [id number] 12:40:00* Test Item Value Reference Range Interpretation Comments STAIN ACCEPTABILITY (test code = STN ACCEPTABLE) CABOT RINGS (test code = CAB) MORPHOLOGY COMMENT (test code = MOC) PLATELET ESTIMATE (test code = PLTEST) PLATELET MORPHOLOGY (test code = PLTMORPH) CBC W/AUTO [id number] 12:40:00* Test Item Value Reference Range Interpretation [...] = MDIFF) NO, ONLY SCAN NEEDED DIFFERENTIAL [id number] 12:40:00* Test Item Value Reference Range Interpretation Comments STAIN ACCEPTABILITY (test code = STN ACCEPTABLE) MORPHOLOGY COMMENT (test code = MOC) PLATELET ESTIMATE (test code = PLTEST) PLATELET MORPHOLOGY (test code = PLTMORPH) CBC W/AUTO [id number] 12:40:00* Test Item Value Reference Range Interpretation [...] = MDIFF) NO, ONLY SCAN NEEDED DIFFERENTIAL [id number] 12:40:00* Test Item Value Reference Range Interpretation Comments STAIN ACCEPTABILITY (test code = STN ACCEPTABLE) CABOT RINGS (test code = CAB) MORPHOLOGY COMMENT (test code = MOC) PLATELET ESTIMATE (test code = PLTEST) PLATELET MORPHOLOGY (test code = PLTMORPH) [id number] 08:33:00* Test Item Value Reference Range Interpretation Comments GLUBED (test code = GLUBED) 95 mg/dL 74-106 N Performed by certified tankage grinder operator at [facility] [id number] 22:18:00* Test Item Value Reference Range Interpretation Comments GLUBED (test code = GLUBED) 139 mg/dL 74-106 H Performed by certified tankage grinder operator at [facility] [id number] 16:49:00* Test Item Value Reference Range Interpretation Comments GLUBED (test code = GLUBED) 129 mg/dL 74-106 H Performed by certified tankage grinder operator at [facility] [id number] 09:41:00* Test Item Value Reference Range Interpretation Comments GLUBED (test code = GLUBED) 80 mg/dL 74-106 N Performed by certified tankage grinder operator at [facility] [id number] 19:59:00* Test Item Value Reference Range Interpretation Comments GLUBED (test code = GLUBED) 164 mg/dL 74-106 H Performed by certified tankage grinder operator at [facility] [id number] 17:25:00* Test Item Value Reference Range Interpretation Comments GLUBED (test code = GLUBED) 105 mg/dL 74-106 N Performed by certified tankage grinder operator at [facility] [id number] 11:59:00* Test Item Value Reference Range Interpretation Comments GLUBED (test code = GLUBED) 96 mg/dL 74-106 N Performed by certified tankage grinder operator at [facility] HGB [id number] 10:31:00* Test Item Value Reference Range Interpretation Comments HEMOGLOBIN (test code = HGB) 8.3 gram/dL 11.5-15.5 L HEMATOCRIT (test code = HCT) 28.0 % 36.0-46.0 L [id number] 20:22:00* Test Item Value Reference Range Interpretation Comments GLUBED (test code = GLUBED) 87 mg/dL 74-106 N Performed by certified tankage grinder operator at [facility] [id number] 16:01:00* Test Item Value Reference Range Interpretation Comments GLUBED (test code = GLUBED) 103 mg/dL 74-106 N Performed by certified tankage grinder operator at [facility] [id number] 13:48:00* Test Item Value Reference Range Interpretation Comments GLUBED (test code = GLUBED) 90 mg/dL 74-106 N Performed by certified tankage grinder operator at [facility] CBC W/AUTO [id number] 13:36:00* Test Item Value Reference Range Interpretation [...] = MDIFF) NO, ONLY SCAN NEEDED DIFFERENTIAL [id number] 13:36:00* Test Item Value Reference Range Interpretation Comments STAIN ACCEPTABILITY (test code = STN ACCEPTABLE) STAIN ACCEPTABLE HYPOCHROMIA (test code = HYPO) 1+ ANISOCYTOSIS (test code = ANISO) 1+ PLATELET ESTIMATE (test code = PLTEST) DECREASED PLATELET MORPHOLOGY (test code = PLTMORPH) APPEAR LARGE SERUM [id number] 12:16:00* Test Item Value Reference Range Interpretation Comments SERUM IRON (test code = IRON) 43 ug/dL 50-175 L VITAMIN [id number] 12:16:00* Test Item Value Reference Range Interpretation Comments VITAMIN B12 (test code = VITB12) 1015 pg/mL 193-986 H FOLIC [id number] 12:16:00* Test Item Value Reference Range Interpretation Comments FOLIC ACID (test code = FOL) 6.4 ng/mL 3.10-17.50 N [id number] 12:16:00* Test Item Value Reference Range Interpretation Comments FERRITIN (test code = NGUYỄN) 16 ng/mL 8-388 N VITAMIN D 1,09-[id number] 12:16:00* Test Item Value Reference Range Interpretation Comments VITAMIN D 1,25-DIHYDROXY (test code = ZLBD295) pgram/mL CBC W/AUTO [id number] 11:52:00* Test Item Value Reference Range Interpretation [...] = MDIFF) NO, ONLY SCAN NEEDED DIFFERENTIAL [id number] 11:52:00* Test Item Value Reference Range Interpretation Comments STAIN ACCEPTABILITY (test code = STN ACCEPTABLE) MORPHOLOGY COMMENT (test code = MOC) PLATELET ESTIMATE (test code = PLTEST) PLATELET MORPHOLOGY (test code = PLTMORPH) CBC W/AUTO [id number] 11:49:00* Test Item Value Reference Range Interpretation [...] = MDIFF) NO, ONLY SCAN NEEDED DIFFERENTIAL [id number] 11:49:00* Test Item Value Reference Range Interpretation Comments STAIN ACCEPTABILITY (test code = STN ACCEPTABLE) CABOT RINGS (test code = CAB) MORPHOLOGY COMMENT (test code = MOC) PLATELET ESTIMATE (test code = PLTEST) PLATELET MORPHOLOGY (test code = PLTMORPH) CBC W/AUTO [id number] 11:49:00* Test Item Value Reference Range Interpretation [...] = MDIFF) NO, ONLY SCAN NEEDED DIFFERENTIAL [id number] 11:49:00* Test Item Value Reference Range Interpretation Comments STAIN ACCEPTABILITY (test code = STN ACCEPTABLE) MORPHOLOGY COMMENT (test code = MOC) PLATELET ESTIMATE (test code = PLTEST) PLATELET MORPHOLOGY (test code = PLTMORPH) CBC W/AUTO [id number] 11:49:00* Test Item Value Reference Range Interpretation [...] = MDIFF) NO, ONLY SCAN NEEDED DIFFERENTIAL [id number] 11:49:00* Test Item Value Reference Range Interpretation Comments STAIN ACCEPTABILITY (test code = STN ACCEPTABLE) CABOT RINGS (test code = CAB) MORPHOLOGY COMMENT (test code = MOC) PLATELET ESTIMATE (test code = PLTEST) PLATELET MORPHOLOGY (test code = PLTMORPH) [id number] 08:28:00* Test Item Value Reference Range Interpretation Comments GLUBED (test code = GLUBED) 91 mg/dL 74-106 N Performed by certified tankage grinder operator at [facility] [id number] 22:08:00* Test Item Value Reference Range Interpretation Comments GLUBED (test code = GLUBED) 118 mg/dL 74-106 H Performed by certified tankage grinder operator at [facility] [id number] 16:55:00* Test Item Value Reference Range Interpretation Comments GLUBED (test code = GLUBED) 86 mg/dL 74-106 N Performed by certified tankage grinder operator at [facility] HGB [id number] 16:01:00* Test Item Value Reference Range Interpretation Comments HEMOGLOBIN (test code = HGB) 7.1 gram/dL 11.5-15.5 L HEMATOCRIT (test code = HCT) 24.6 % 36.0-46.0 L [id number] 15:01:00* Test Item Value Reference Range Interpretation Comments GLUBED (test code = GLUBED) 95 mg/dL 74-106 N Performed by certified tankage grinder operator at [facility] [id number] 12:45:00* Test Item Value Reference Range Interpretation Comments GLUBED (test code = GLUBED) 61 mg/dL 74-106 L Performed by certified tankage grinder operator at [facility] CBC W/AUTO [id number] 10:17:00* Test Item Value Reference Range Interpretation Comments WHITE BLOOD CELL (test code = WBC) 2.5 K/mm3 4.5-12.5 L RED BLOOD CELL (test code = RBC) 2.13 mill/mm3 3.7-5.2 L HEMOGLOBIN (test code = HGB) 6.2 gram/dL 11.5-15.5 L HEMATOCRIT (test code = HCT) 21.2 % 36.0-46.0 LL Results called to [id number] by TERESSA 03/23/18 1016Critical results verified and [...] REQUIRED (test code = MDIFF) NO HGB [id number] 05:48:00* Test Item Value Reference Range Interpretation Comments HEMOGLOBIN (test code = HGB) 6.5 gram/dL 11.5-15.5 L HEMATOCRIT (test code = HCT) 21.7 % 36.0-46.0 LL Results called to [id number] by CINDA 03/23/18 0548Critical results verified and read back by Nurse? Y [id number] 22:09:00* Test Item Value Reference Range Interpretation Comments GLUBED (test code = GLUBED) 70 mg/dL 74-106 L Performed by certified tankage grinder operator at [facility] URINALYSIS [id number] 20:07:00* Test Item Value Reference Range Interpretation [...] 0-2 #/HPF 0-5 Urine Source? Clean CatchURINALYSIS [id number] 20:03:00* Test Item Value Reference Range Interpretation [...] Urine Source? Clean Catch- XR CHEST 1 [id number] 19:08:00 FAX: Beth Pizarro DO [place]: Sandra St: REG Name: ALEX LANDRUM [facility] : 09[birth year]18 [birth year] Age/S: 67/F [address] [facility] Unit #: [id number] Loc: [place] [address] Phys: Beth Pizarro DO Acct: [id number] Dis Date: Status: REG ER PHONE #: [phone] Exam Date: 03/22/2018 1900 FAX #: [phone] Reason: Altered Mental Status EXAMS: CPT CODE: [id number] XR CHEST 1 V 21501 EXAM: Chest x-ray, one view; INFORMATION: Altered mental status; IMPRESSION: 1. Mild cardiomegaly. 2. No evidence of acute cardiothoracic abnormal ities. 3. No major change compared with a study from January 28, 2018. at 1908 Reporte d and signed by: Gonsalo Mayorga M.D. CC: Beth Duke DO Technologist: SAI GARCIA; MARI ERNST RT (R) Trnscrd Date/Time/By: 03/22/2018 (1907) : By: Dawood Orig Print D/T: S: 03/22/2018 (1910) PAGE 1 Signed Report CBC W/AUTO [id number] 18:57:00* Test Item Value Reference Range Interpretation [...] = MDIFF) NO, ONLY SCAN NEEDED DIFFERENTIAL [id number] 18:57:00* Test Item Value Reference Range Interpretation Comments STAIN ACCEPTABILITY (test code = STN ACCEPTABLE) STAIN ACCEPTABLE POLYCHROMASIA (test code = POLC) 1+ HYPOCHROMIA (test code = HYPO) 2+ ANISOCYTOSIS (test code = ANISO) 1+ MACROCYTOSIS (test code = MACR) 1+ PLATELET ESTIMATE (test code = PLTEST) DECREASED PLATELET MORPHOLOGY (test code = PLTMORPH) SIZE VARIABLE BASIC METABOLIC [id number] 18:52:00* Test Item Value Reference Range Interpretation [...] CA) 7.5 mg/dL 8.5-10.1 L HEPATIC FUNCTION [id number] 18:52:00* Test Item Value Reference Range Interpretation [...] reference range due to change in reagent. [id number] 18:52:00* Test Item Value Reference Range Interpretation Comments TROPONIN-I (test code = TROPI) <0.015 ng/mL 0-0.045 N BASIC METABOLIC [id number] 18:48:00* Test Item Value Reference Range Interpretation [...] code = CA) mg/dL 8.5-10.1 HEPATIC FUNCTION [id number] 18:48:00* Test Item Value Reference Range Interpretation [...] TOTAL (test code = ALKP) IUnit/L 45-117 [id number] 18:48:00* Test Item Value Reference Range Interpretation Comments TROPONIN-I (test code = TROPI) ng/mL 0-0.045 [id number] 18:48:00* Test Item Value Reference Range Interpretation Comments AMMONIA (test code = AMM) 146 umol/L 11-32 H THROMBOPLASTIN TIME [id number] 18:42:00* Test Item Value Reference Range Interpretation Comments THROMBOPLASTIN TIME PARTIAL (test code = PTT) 33.3 seconds 25.0-36. 5 N IS PATIENT ON ANTICOAGULANTS? N- CT HEAD/BRAIN W/O [id number] 18:36:00 Name: ALEX STANTON [facility] : 1950 Age/S: 67 / F [address] [facility] Unit #: [id number] Loc: [place] [address] Phys: Aaron Pizarro DO Acct: [id number] Di s Date: Status: PRE ER PHONE #: Exam Date: 03/22/20181820 FAX #: [phone] Reason: Altered Mental Status EXAMS: CPT CODE: [id number] CT HEAD/BRAIN W/O CONT 22401 EXAM: CT of the head; INFORMATION: AMS; [...] Isidro CTDI: DLP: Trnscb Date/Time: 03/22/2018 (1835) [id number] Orig Print D/T: S: 03/22/2018 (1838) CTDI: DLP: PAGE 1 Signed Report CBC W/AUTO [id number] 18:33:00* Test Item Value Reference Range Interpretation [...] = MDIFF) NO, ONLY SCAN NEEDED DIFFERENTIAL [id number] 18:33:00* Test Item Value Reference Range Interpretation Comments STAIN ACCEPTABILITY (test code = STN ACCEPTABLE) CABOT RINGS (test code = CAB) MORPHOLOGY COMMENT (test code = MOC) PLATELET ESTIMATE (test code = PLTEST) PLATELET MORPHOLOGY (test code = PLTMORPH) CBC W/AUTO [id number] 18:33:00* Test Item Value Reference Range Interpretation [...] = MDIFF) NO, ONLY SCAN NEEDED DIFFERENTIAL [id number] 18:33:00* Test Item Value Reference Range Interpretation Comments STAIN ACCEPTABILITY (test code = STN ACCEPTABLE) MORPHOLOGY COMMENT (test code = MOC) PLATELET ESTIMATE (test code = PLTEST) PLATELET MORPHOLOGY (test code = PLTMORPH) CBC W/AUTO [id number] 18:33:00* Test Item Value Reference Range Interpretation [...] = MDIFF) NO, ONLY SCAN NEEDED DIFFERENTIAL [id number] 18:33:00* Test Item Value Reference Range Interpretation Comments STAIN ACCEPTABILITY (test code = STN ACCEPTABLE) MORPHOLOGY COMMENT (test code = MOC) PLATELET ESTIMATE (test code = PLTEST) PLATELET MORPHOLOGY (test code = PLTMORPH) CBC W/AUTO [id number] 18:33:00* Test Item Value Reference Range Interpretation [...] = MDIFF) NO, ONLY SCAN NEEDED DIFFERENTIAL [id number] 18:33:00* Test Item Value Reference Range Interpretation Comments STAIN ACCEPTABILITY (test code = STN ACCEPTABLE) CABOT RINGS (test code = CAB) MORPHOLOGY COMMENT (test code = MOC) PLATELET ESTIMATE (test code = PLTEST) PLATELET MORPHOLOGY (test code = PLTMORPH) FLUID,[id number] 15:16:00 RUN DATE: 02/01/18 [place] - Lab PAGE 1 RUN TIME: 1516 Specimen Inqui ry RUN USER: INTERFACE PATIENT: ALEX STANTON ACCT #: [id number] LOC: CARLIE #: [id number] AGE/SX: 67/F ROOM: 2049 RE01/25/18REG DR: John Lopez MD : 50 BED: A DIS: STATUS: ADM IN TLOC: SPEC #: [id number] RECD: 01/31/18 STATUS: REMY REMeera #: [id number] PRANEETH: 01/31/18-[address] [facility] [address]: Drew Cole MD ENTERED: 01/31/18 SP TYPE: FL ASCITES OTHR DR: Gerson Messina MD, Zaher MDORDERED: DANIAL COPIES TO: Gerson Messina MD [address] [place] [address] Drew Cole MD [address] [place] [address] Troy Rodriguez MD [address] [facility] [place], [place] [id number] PROCEDURES: GROSS (02/01/18-1442) TISSUES: ASCITES FLUID - 30 ML YELLOW CLINICAL HISTORY CO LLECTION DATE: 01/31/18 ASCITES, CIRRHOSIS FINAL DIAGNOSIS Ascit es fluid for cytology, paracentesis: MESOTHELIAL CELLS, MACROPHAGES, AND WHITE BLOOD CELLS NEGATIVE FOR MALIGNANCY DMW/gm D 44505, 97456 CONTINUED ON NEXT PAGE RUN DATE: 02/01/18 [facility] P AGE 2 RUN TIME: 1515 Specimen Inquiry RUN USER: INTERFACE SPEC #: [id number] PATIENT: ALEX STANTON #[id number] (Continued) MACROSCOPIC The specimen consists of 30 mL of yellow fluid for concentration and evaluation. A cell bl ock will be prepared. GROSS PERFORMED AT [facility] [address] [facility] [place] [address] (P)[phone] MICROSCOPIC MICROSCOPIC PERFORMED AT [facility] All of the stains, including any controls performed, stain appropriately. [facility] [address] [place] [address] (p)[phone] PERFORMING SITE Processed at: [facility], [address] [place] [address] ------- ----- Signed SIGNATURE ON FILE Francine Pacheco Josr 02/01/18 1516 END OF R EPORT SHOULDER RIGHT COMPLETE [place] [address] Patient Name: ALEX STANTON MR #: [id number] : 1950 Age/Sex: 66/F Req #: [id number] Adm Physician: JOHN LOPEZ MD Ordered by: JOHN LOPEZ MD Report #: [id number] Location: MED/SURG3 Room/Bed: [facility] Procedure: [id number] DX/SHOULDER RIGHT COMPLETE Exam Date: 07/29/17 Exam [...] TO: JOHN LOPEZ MD SHOULDER LEFT COMPLETE [place] [address] Patient Name: ALEX STANTON MR #: [id number] : 1950 Age/Sex: 66/F Req #: [id number] Adm Physician: JOHN LOPEZ MD Ordered by: JOHN LOPEZ MD Report #: [id number] Loc ation: MED/SURG3 Room/Bed: [facility] Procedure: [id number] DX/SHOULDER LEFT COMPLETE Exam Date: 07/29/17 Exam Time: 1858 REPORT STATUS: Signed EXAMINATION: SHOULDER LEFT COMPLETE 07/29/2017 6:37 PM COMPARISON: None INDICATION: Left shoulder pain DISCUSSION: 2 views of the left shoulder (AP internal and external rot ation) Internal and external rotation are adequate No fracture or disloca tion. Joint spaces are maintained. Soft tissues are unremarkable IMPRES JAKUB: No acute radiographic abnormality of the left shoulder Deion francisco MD Signed by: Rani SimsD. on 07/29/2017 8:08 PM Dic tated By: DEION CARTER MD 07 Transcribed By: NIRMALA on 07/29/172007 COPY TO: JOHN VELAZQUEZ MD KNEE LEFT THREE VIEWS [place] [address] Patient Name: ALEX STANTON MR #: [id number] : 1950 Age/Sex: 66/F Req #: [id number] Adm Physician: JOHN LOPEZ MD Ordered by: JOHN LOPEZ MD Report #: [id number] Location: [facility] Room/Bed: [facility] Procedure: [id number] DX/KNEE LEFT THREE VIEWS Exam Date: 07/29/17 [...] JOHN LOPEZ MD ANKLE 3+ VIEWS LEFT [place] [address] Patient Name: ALEX STANTON MR #: [id number] : 1950 Age/Sex: 66/F Req #: [id number] Adm Physician: JOHN LOPEZ MD Ordered by: JOHN LOPEZ MD Report #: [id number] Location: [facility]/SURG3 Room/Bed: [facility] Procedure: 8333-5720 DX/ANKLE 3+ VIEWS LEFT Exam Date: 07/29/17 [...] TO: JOHN LOPEZ MD CT CHEST W [place] [address] Patient Name: ALEX STANTON MR #: [id number] : 1950 Age/Sex: 66/F Req #: [id number] Adm Physician: Ordered by: CARLOS PEDROZA MD Report #: [id number] Location: ER Room/Bed: Procedure: [id number] CT/CT CHEST W Exam Date: 0 07/28/17 Exam Time: 2099 REPORT STATUS: Signed [...] 07/28/172214 COPY TO: CARLOS PEDROZA MD CHEST [facility] (PORTABLE) [place] [address] Patient Name: ALEX STANTON MR #: [id number] : 1950 Age/Sex: 66/F Req #: [id number] Adm Physician: Ordered by: PAVITHRA ROMAN MD Report #: [id number] Location: ER Room/Bed: Procedure: 3012-9049 DX/CHEST SINGLE (PORTAB LE) Exam Date: 07/28/17 Exam Time: 1800 REPORT STATUS: Signed PROCEDURE: A single AP view of the chest. COMPARISON: [facility], , CHEST SINGLE (PORTABLE), 02/05/2017, 11:56. INDICATIONS: CHEST [...] TO: PAVITHRA STEPHEN MD CHEST SINGLE (PORTABLE) [place] [address] Patient Name: ALEX STANTON MR #: [id number] : 1950 Age/Sex: 66/F Req #: [id number] Adm Physician: JOHN LOPEZ MD Ordered by: GLORIA CALIX MD Report #: [id number] Location: MED/SURG3 Room/Bed: [facility] Procedure: 5906-1154 DX/CHEST SINGLE (PORTABLE) Exam Date: 02/05/17 Exam [...] GLORIA CALIX MD KNEE RIGHT THREE VIEWS [place] [address] Patient Name: ALEX STANTON MR #: [id number] : 1950 Age/Sex: 66/F Req #: [id number] Adm Physician: Ordered by: OBINNA BOBO 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 OPERATOR Report #: [id number] Location: ER Room/Bed: Procedure: [id number] DX/KNEE RIGHT THREE VIE WS Exam Date: [...] on 02/02/17 1418 COPY TO: OBINNA BOBO 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 OPERATOR CHEST XRAY LINE PLACEMENT [place] [address] Patient Name: ALEX STANTON MR #: [id number] : 1950 Age/Sex: 66/F Req #: [id number] Adm Physician: JOHN LOPEZ MD Ordered by: JOHN LOPEZ MD Report #: [id number] Location: MED/SURG Room/Bed: 109- Procedure: 6135-3170 DX /CHEST XRAY LINE PLACEMENT Exam Date: [...] JOHN LOPEZ MD CHEST XRAY LINE PLACEMENT [place] [address] Patient Name: ALEX STANTON MR #: [id number] : 1950 Age/Sex: 66/F Req #: [id number] Adm Physician: JOHN LOPEZ MD Ordered by: JOHN LOPEZ MD Report #: [id number] Location: MED/SURG Room/Bed: 109 Procedure: DX/CHEST XRAY LINE PLACEMENT Exam Date: [...] MD 06 Transcribed By: SUZANNE on 12/28/161806 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: JOHN LOPEZ MD CHEST XRAY LINE PLACEMENT [place] [address] Patient Name: ALEX STANTON MR #: [id number] : 1950 Age/Sex: 66/F Req #: [id number] Adm Physician: JOHN LOPEZ MD Ordered by: EDEN ALVAREZ MD Report #: [id number] Location: MED/SURG Room/Bed: [facility] Procedure: DX /CHEST XRAY LINE PLACEMENT Exam [...] EDEN ALVAREZ MD CHEST XRAY LINE PLACEMENT [place] [address] Patient Name: ALEX STANTON MR #: [id number] : 1950 Age/Sex: 66/F Req #: [id number] Adm Physician: JOHN LOPEZ MD Ordered by: EDEN ALVAREZ MD Report #: [id number] Location: MED/SURG Room/Bed: [facility] Procedure: [id number] DX/CHEST XRAY LINE PLACEMENT Ex[facility]: [facility]32 REPORT STATUS: Signed PROCEDURE: A [...] EDEN ALVAREZ MD CHEST XRAY LINE PLACEMENT [place] [address] Patient Name: ALEX STANTON MR #: [id number] : 1950 Age/Sex: 66/F Req #: [id number] Adm Physician: EDEN ALVAREZ MD Ordered by: EDEN ALVAREZ MD Report #: [id number] Location: MED/SURG Room/Bed: [facility] Procedure: 0414-2501 DX /CHEST XRAY LINE PLACEMENT Exam Date: [...] EDEN ALVAREZ MD CHEST XRAY LINE PLACEMENT [place] [address] Patient Name: ALEX STANTON MR #: [id number] : 1950 Age/Sex: 66/F Req #: [id number] Adm Physician: JOHN LOPEZ MD Ordered by: EDEN ALVAREZ MD Report #: [id number] Location: MED/SURG Room/Bed: [facility] Procedure: 0260-2913 DX/CHEST XRAY LINE PLACEMENT Exam Date: 12/28/16 Expito m Time: 1550 REPORT STATUS: Signed PROCEDURE: [...] at 16:14 Dictated By: DANITA HODGSON MD E lectronically Signed By: DANITA HODGSON MD on 12/28/16 161 Transcribed By: INFC E on 12/28/161613 COPY TO: EDEN ALVAREZ MD KNEE RIGHT 1-2 VIEWS [facility] [address] [place] [address] Patient Name: ALEX STANTON MR #: [id number] : 1950 Age/Sex: 66/F Req #: [id number] Adm Physician: EDEN ALVAREZ MD Ordered by: EDEN ALVAREZ MD Report #: [id number] Locat ion: MED/SURG Room/Bed: [facility] Procedure: [id number] DX /KNEE RIGHT 1-2 VIEWS Exam Date: [...] ically Signed By: DANITA HODGSON MD on 12/28/16 1345 Transcribed By: INFDUNIA on 1345 COPY TO: EDEN ALVAREZ MD KNEE RIGHT 1-2 VIEWS [facility] [address] [place] [address] Patient Name: ALEX STANTON MR #: [id number] : 1950 Age/Sex: 66/F Req #: [id number] Adm Physician: JOHN LOPEZ MD Ordered by: EDEN ALVAREZ MD Report #: [id number] Loc ation: MED/SURG Room/Bed: [facility] Procedure: 8522-1216 DX/KNEE RIGHT 1-2 VIEWS Exam Date: 12/28/16 [...] By: SUZANNE on 12/28/16 1345 COPY TO: EEDN ALVAREZ MD KNEE RIGHT 1-2 VIEWS [facility] [address] [place] [address] Patient Name: ALEX STANTON MR #: [id number] : 1950 Age/Sex: 66/F Req #: [id number] Adm Physician: JOHN LOPEZ MD Ordered by: EDEN ALVAREZ MD Report #: [id number] Locat ion: MED/SURG Room/Bed: 114-1 Procedure: 7401-8500 DX /KNEE RIGHT 1-2 VIEWS Exam Date: 11/09/16 Exam Time: 1330 REPORT STATUS: Signed PROCEDURE: X-RAY RIGHT KNEE, ONE OR TWO V IEWS COMPARISON: [facility], DX, KNEE RIGHT 1-2 VIEWS, 1 03/13/2015, 13:20. [...] MD on 11/09/161451 Transcribed By: SUZANNE on 11/09/16 1452 COPY TO: EDEN ALVAREZ MD KNEE RIGHT 1-2 VIEWS [place] [address] Patient Name: ALEX STANTON MR #: [id number] : 1950 Age/Sex: 66/F Req #: [id number] Adm Physician: JOHN LOPEZ MD Ordered by: EDEN ALVAREZ MD Report #: [id number] Loc ation: MED/SURG Room/Bed: 114-1 Procedure: 8575-1103 DX/KNEE RIGHT 1-2 VIEWS Exam Date: 11/09/16 Exam Patricio e: 1330 REPORT STATUS: Signed PROCEDURE: X-RAY RIGHT KNEE, ONE OR TWO VIEWS COMPARISON: [facility], DX, KNEE RIGHT 1-2 VIEWS, 01/12/2016, [...] MD on 11/09/161451 Transcribed By: SUZANNE on 1452 COPY TO: EDEN ALVAREZ MD [facility] (PORTABLE) [place] [address] Patient Name: ALEX STANTON MR #: [id number] : 1950 Age/Sex: 66/F Req #: [id number] Adm Physician: Ordered by: CARLOS PEDROZA MD Report #: [id number] Location: ER Room/Bed: Procedure: 7099-4708 DX/CHEST SINGLE (PORTABLE) E xam Date: 11/08/16 Exam Time: 0 REPORT STATU S: Signed EXAM: CHEST SINGLE [...] TO: Aaron PEDROZA MD CHEST SINGLE (PORTABLE) [place] [address] Patient Name: ALEX STANTON MR #: [id number] : 1950 Age/Sex: 66/F Req #: [id number] Adm Physician: JOHN LOPEZ MD Ordered by: CARLOS PEDROZA MD Report #: [id number] Location: MED/SURG Room/Bed: 114-1 Procedure: 6899-9030 DX/CHEST SINGLE (PORTABLE) Exam Date: 11/08/16 Exam [...] Merino on 11/08/2016 10:16 PM Dictated By: GIBOSN BLANCAS MD Electronically Si gned By: GIBSON BLANCAS MD on 11/08/162215 Transcribed By: NIRMALA on 11/08/162215 COPY TO: CARLOS PEDROZA MD ABDOMEN COMPLETE [place] [address] Patient Name: ALEX STANTON MR #: [id number] : 1950 Age/Sex: 66/F Req #: [id number] Adm Physician: JOHN LOPEZ MD Ordered by: DOROTA HOLLIS MD Report #: [id number] Location: [facility] Room/Bed: [place] [address] Procedure: 0206-9385 US/ US ABDOMEN COMPLETE Exam Date: 11/03/16 Exam Time: 1 740 REPORT STATUS: Signed PROCEDURE: ABDOMINAL ULTRASOUND COMPARISO N: Patients [facility], US, US ABDOMEN LIMITED, 05/31/2016, 10:48. IND [...] TO: DOROTA HOLLIS MD US ABDOMEN COMPLETE [facility] [address] [place] [address] Patient Name: ALEX STANTON MR #: [id number] : 1950 Age/Sex: 66/F Req #: [id number] Adm Physician: JOHN LOPEZ MD Ordered by: DOROTA HOLLIS MD Report #: [id number] Location: [facility] Room/Bed: [address] Procedure: 8516-1110 U S/US ABDOMEN COMPLETE Exam Date: 11/03/16 Exam Time: 1740 REPORT STATUS: Signed PROCEDURE: ABDOMINAL ULTRASOUND COMPARI SON: [facility], US, US ABDOMEN LIMITED, 05/31/2016, 10:48. [...] TO: DOROTA HOLLIS MD CHEST SINGLE (PORTABLE) [place] [address] Patient Name: ALEX STANTON MR #: [id number] : 1950 Age/Sex: 66/F Req #: [id number] Adm Physician: Ordered by: MABEL WONG MD Report #: [id number] Location: ER Room/Bed: Procedure: 6409-1472 DX/CHEST SINGLE (PORTABLE) Exam Date: Exam Time: [...] 09/06/161822 COPY TO: MABEL WONG MD, I BLEED [place] [address] Patient Name: ALEX STANTON MR #: [id number] : 1950 Age/Sex: 66/F Req #: [id number] Adm Physician: JOHN LOPEZ MD Ordered by: GERSON MESSINA MD Report #: [id number] Lo cation: [facility] Room/Bed: [place] [address] Procedure: 1 NM/G I BLEED Exam Date: [...] 1341 COPY TO: GERSON MESSINA MD CHEST [facility] (PORTABLE) [address] [address] Patient Name: ALEX STANTON MR #: [id number] : 1950 Age/Sex: 66/F Req #: [id number] Adm Physician: JOHN LOPEZ MD Ordered by: MABEL WONG MD Report #: [id number] Loca tion: I[facility] Room/Bed: [facility] 186-1 Procedure: 4945-4024 DX/CHEST SINGLE (PORTABLE) Exam Date: 08/02/16 Exam [...] at 15:53 Dictated By: BILLY BECKFORD MD 1553 Transcribed By: SUZANNE on 08/02/16 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: MABEL WONG MD ABDOMEN LIMITED [place] [address] Patient Name: ALEX STANTON MR #: [id number] : 1950 Age/Sex: 66/F Req #: [id number] Adm Physician: JOHN LOPEZ MD Ordered by: GERSON MESSINA MD Report #: [id number] Location: MED/SURG2 Room/Bed: 202-1 Procedure: 0403-000 2 US/US ABDOMEN LIMITED Exam [...] 05/31/16 1231 COPY TO: GERSON MESSINA MD [facility] (PORTABLE) [place] [address] Patient Name: ALEX STANTON MR #: [id number] : 1950 Age/Sex: 66/F Req #: [id number] Adm Physician: JOHN LOPEZ MD Ordered by: OBINNA STEVENSON MD Report #: [id number] Location: MED/SURG2 Room/Bed: 202-1 Procedure: DX/CHEST SINGLE (PORTABLE) Exam Date: 05/28/16 [...] TO: OBINNA STEVENSON MD CHEST SINGLE (PORTABLE) [place] [address] Patient Name: ALEX STANTON MR #: [id number] : 1950 Age/Sex: 66/F Req #: [id number] Adm Physician: JOHN LOPEZ MD Ordered by: GERSON MESSINA MD Report #: [id number] Location: MED/SURG3 Room/Bed: 297-1 Procedure: 0128-000 6 DX/CHEST SINGLE (PORTABLE) Exam Date: 03/27/16 Sonny johnson Time: 0445 REPORT STATUS: Signed EXAMINATION: CHEST SINGLE (PORTABLE [...] on 03/27/1636 Transcribed By : NIRMALA on 03/27/16535 COPY TO: GERSON MESSINA MD [place] [address] Patient Name: ALEX STANTON MR #: [id number] DO B: 1950 Age/Sex: 66/F Req #: [id number] Adm Physici an: JOHN LOPEZ MD Ordered by: JOHN LOPEZ MD Report #: [id number] Loc ation: MED/SURG3 Room/Bed: [facility] Procedure: 9678-9233 US/US LIVER Exam Date: 03/26/16 Exam Time: [...] JOHN LOPEZ MD CHEST XRAY LINE PLACEMENT [place] [address] Patient Name: ALEX STANTON MR #: [id number] : 1950 Age/Sex: 66/F Req #: [id number] Adm Physician: JOHN LOPEZ MD Ordered by: JOHN LOPEZ MD Report #: [id number] Location: MED/SURG3 Room/Bed: [facility] Procedure: 9993-6400 DX/CHEST XRAY LINE PLACEMENT Exam Date: Exam [...] TO: JOHN LOPEZ MD CHEST SINGLE (PORTABLE) [place] [address] Patient Name: ALEX STANTON MR #: [id number] : 1950 Age/Sex: 66/F Req #: [id number] Adm Physician: JOHN LOPEZ MD Ordered by: OBINNA STEVENSON MD Report #: [id number] Location: MED/SURG3 Room/Bed: [facility] Procedure: DX/CHEST SINGLE (PORTABLE) Exam Date: 03/24/16 [...] By: AMILCAR CASTORENA MD 03 Transcribed By: NIRAMLA on 03/24/162103 COPY TO: OBINNA STEVENSON MD CHEST XRAY LINE PLACEMENT [place] [address] Patient Name: ALEX STANTON MR #: [id number] : 1950 Age/Sex: 66/F Req #: [id number] Adm Physician: EDEN ALVAREZ MD Ordered by: EDEN ALVAREZ MD Report #: [id number] Location: MED/SURG Room/Bed: [facility] Procedure: 5265-9048 DX/CHEST XRAY LINE PLACEMENT Exam Date: 01/12/16 [...] EDEN ALVAREZ MD KNEE RIGHT 1-2 VIEWS [place] [address] Patient Name: ALEX STANTON MR #: [id number] : 1950 Age/Sex: 66/F Req #: [id number] Adm Physician: EDEN ALVAREZ MD Ordered by: EDEN ALVAREZ MD Report #: [id number] Loc ation: MED/SURG Room/Bed: 1061 Procedure: 6147-1601 DX/KNEE RIGHT 1-2 VIEWS Exam Date: 01/12/16 [...] TO: EDEN ALVAREZ MD CHEST 2 VIEWS [place] [address] Patient Name: ALEX STANTON MR #: [id number] : 1950 Age/Sex: 66/F Req #: [id number] Adm Physician: EDEN ALVAREZ MD Ordered by: EDEN ALVAREZ MD Report #: [id number] Loc ation: MED/SURG Room/Bed: [facility] Procedure: 6053-8052 DX/CHEST 2 VIEWS Exam Date: 01/09/16 Exam Time: 1350 REPORT STATUS: Signed PROCEDURE: CHEST 2 VIEWS TECHNIQUE: PA and lateral chest INDICATION: Preoperative evaluation for right knee replacement COMPARISON: [facility], DX, CHEST 2 VIEWS, 09/19/2015, 14:26. [...] at 14:24 Dictated By: DIANNA VILLARREAL MD 23 Transcribed By: SUZANNE on 01/09/161423 COPY TO: EDEN ALVAREZ MD CHEST 2 VIEWS [place] [address] Patient Name: ALEX STANTON MR #: [id number] : 1950 Age/Sex: 66/F Req #: [id number] Adm Physician: Ordered by: EDEN ALVAREZ MD Report #: [id number] Location: OR Room/Bed: Procedure: 8725-7278 DX/CHEST 2 VIEWS Exam Date : 09/19/15 Exam Time: 1430 REPORT STATUS: Kim d PROCEDURE: Frontal and lateral views of the chest. COMPARISON: [facility], DX, CHEST SINGLE (NOT PORTABLE), 08/14/2015, 8:37. [...] overt pulmonary edema, consolidation, or effusion. Girma Morirs M.D. Dictated by: Althea Morris M.D. on 09/19/2015 at 15:06 Electronically approved by: Girma Morris M.D. on 09/19/2015 at 15:06 Dictated By: ZACH MORRIS MD 1501 Tr anscribed By: SUZANNE on 09/19/15 1506 COPY TO: EDEN ALVAREZ MD G I BLEED [place] [address] Patient Name: ALEX STANTON MR #: [id number] : 1950 Age/Sex: 66/F Req #: [id number] Adm Physician: JOHN LOPEZ MD Ordered by: GERSON MESSINA MD Report #: [id number] Location: [facility] Room/Bed: [facility] Procedure: 0620-000 1 NM/G I BLEED Exam [...] this time. Dictated By: ELLEN LONG MD 1236 Transcribed By: NIRMALA on 08/18/15 1735 COPY TO: GERSON MESSINA MD ANKLE 3 + VIEWS RIGHT [place] [address] Patient Name: ALEX STANTON MR #: [id number] : 1950 Age/Sex: 66/F Req #: [id number] Adm Physician: JOHN LOPEZ MD Ordered by: WILLIAM HOLLAND, KENZIE HOLLAND Report #: [id number] Location: MED/SURG3 Room/Bed: [facility] Procedure: 0616- 0027 DX/ANKLE 3 [...] TO: KENZIE THOMAS CHEST SINGLE (NOT PORTABLE) [facility] [address] [place] [address] Patient Name: ALEX STANTON MR #: [id number] DO B: 1950 Age/Sex: 66/F Req #: [id number] Adm Physici an: JOHN LOPEZ MD Ordered by: KENZIE THOMAS MD, MD Report #: [id number] Location: MED/SURG3 Room/Bed: [facility] Procedure: 0616- 0025 DX/CHEST SINGLE (NOT PORTABLE) Exam Date: 08/14/15 Exam Time: 0855 REPORT STATUS: Signed PROCEDURE: X-RAY CHEST, ONE VIEW COMPARISON: None. INDICATIONS: RIGHT KNEE/ANKLE PAIN FINDINGS: There are no consolidations, pleural effusions or pneumothorax. The cardiomediastinal silhouette is prominent. The pulmonary vasculature is normal. There are no acute osseous abnormalities. CONCLUSION: No [place] cardiopulmonary abnormality. Nora Landa D.O. Dictated by: Nora Landa D.O. on 08/14/2015 at 9:52 Electronically approved by: Russell Landa D.O. on 08/14/2015 at 9:52 Dictated By: NORA SMART DO 0944 Transcribe d By: SUZANNE on 08/14/15 0952 COPY TO: KENZIE THOMAS KNEE RIGHT THREE VIEWS [facility] [address] [place] [address] Patient Name: ALEX STANTON MR #: [id number] : 1950 Age/Sex: 66/F Req #: [id number] Adm Physician: JOHN LOPEZ MD Ordered by: KENZIE THOMAS MD, MD Report #: [id number] Location: [facility]/SURG3 Room/Bed: [facility] Procedure: 0616- 0019 DX/KNEE RIGHT THREE VIEWS Exam Date: 08/14/15 E xam Time: 08 REPORT STATUS: Signed PROCEDURE: X-RAY RIGHT KNEE, [...]
--- NOTE | 2019-07-20 22:00 | NUR ---
COVID TEST DONE, PT TOLERATED WELL.
[2019-07-20] MEDS ORDERED: MINERAL OIL 132 ML BTL PR ONE (22:30)
[2019-07-20 22:49] VITALS: BP 105/65
--- NOTE | 2019-07-20 23:03 | NUR ---
Patient arrived to unit via stretcher in stable condition. Currently resting in bed, respirations even and unlabored, vital signs stable, no s/s of distress. Wynn catheter in place, catheter free of kinks, bag hung below bladder, draining to gravity. Bed locked and in low position, side rails up x3, call light placed within reach. All safety measures in place. Will continue to monitor.
[2019-07-20] MEDS: SODIUM CHLORIDE 0.9% 1000ML 1,000 ML IV SCH (23:18)
--- NOTE | 2019-07-20 23:30 | NUR ---
Fingerstick glucose level 70. Provided 8 oz of orange juice. Will continue to monitor patient.
[2019-07-20 23:31] VITALS: BP 105/65
[2019-07-20] MEDS ORDERED: POTASSIUM CHLO20 ME1 PO (23:43)
[2019-07-20] MEDS ORDERED: VICTOZA 18 MG/3 ML SC (23:43)
[2019-07-20] MEDS ORDERED: HEMOCYTE PLUS1 EACH PO (23:43)
[2019-07-20] MEDS ORDERED: PROPRANOLOL HCL10 MG PO (23:43)
[2019-07-20] MEDS ORDERED: TRAZODONE HCL300 MG PO (23:43)
[2019-07-20] MEDS ORDERED: CYMBALTA60 MG PO (23:44)
[2019-07-20 23:53] VITALS: BP 105/65
[2019-07-21 01:02] LABS: CREATINE KINASE MB 3.1 ng/mL (0-5.0)
[2019-07-21] MEDS: PIPER-TAZ 3.375 GM 50 ML IV SCH ×4 (03:05→21:00)
[2019-07-21 04:00] VITALS: BP 113/69
[2019-07-21] MEDS: SODIUM CHLORIDE 0.9% 1000ML 1,000 ML IV SCH ×2 (04:45→12:45)
[2019-07-21 06:18] LABS: BASOPHILS % 0.7 % (0.0-1.0); EOSINOPHILS # (AUTO) 0.5 (0.0-0.4); EOSINOPHILS % 11.8 % (0.0-6.0); HEMATOCRIT 24.1 % (34.2-44.1); HEMOGLOBIN 7.3 g/dL (12.0-16.0); LYMPHOCYTES # (AUTO) 0.7 (1.0-3.2); LYMPHOCYTES % 16.8 % (18.0-39.1); MEAN CORPUSCULAR HEMOGLOBIN 35.1 pg (28-32); MEAN CORPUSCULAR HGB CONC 30.3 g/dL (31-35); MEAN CORPUSCULAR VOLUME 115.9 fL (81-99); MONOCYTES # (AUTO) 0.5 (0.2-0.8); MONOCYTES % 10.6 % (4.4-11.3); NEUTROPHILS # (AUTO) 2.6 (2.1-6.9); NEUTROPHILS % 59.9 % (38.7-80.0); PLATELET COUNT 88 x10e3/uL (140-360); RED BLOOD COUNT 2.08 x10e6/uL (3.6-5.1); RED CELL DISTRIBUTION WIDTH 16.8 % (11.7-14.4)
[2019-07-21 06:51] LABS: ALBUMIN/GLOBULIN RATIO 0.7 (0.8-2.0); ANION GAP 11.1 mmol/L (8-16); CALCIUM 7.9 mg/dL (8.4-10.2); CREATININE, SERUM 1.1 mg/dL (0.57-1.11); POTASSIUM 3.1 mmol/L (3.5-5.1)
--- NOTE | 2019-07-21 06:59 | NUR ---
Informed by lab of glucose level of 57. Patient arousable, responsive, obeying commands. No s/s of distress. Provided orange juice. Will continue to monitor.
--- NOTE | 2019-07-21 07:10 | NUR ---
Bedside report given to oncoming nurse. Patient awake and resting in bed, no s/s of distress at this time. All safety measures in place.
[2019-07-21 07:20] LABS: CREATINE KINASE 119 IU/L (29-168)
[2019-07-21 12:00] VITALS: BP 154/84
[2019-07-21 12:21] LABS: PLATELET ESTIMATE SLIGHTLY DECREASED; PLATELET MORPHOLOGY COMMENT NORMAL
[2019-07-21 12:22] LABS: RBC MORPHOLOGY COMMENT ABNORMAL
[2019-07-21 12:26] LABS: NEUTROPHILS % (MANUAL) 62 % (40-74)
[2019-07-21 12:27] LABS: EOSINOPHILS % (MANUAL) 10 % (0-7); LYMPHOCYTES % (MANUAL) 18 % (19-48); MONOCYTES % (MANUAL) 10 % (3.4-9.0)
[2019-07-21 16:00] VITALS: BP 102/70
[2019-07-21] MEDS: PANTOPRAZOLE SOD 40 MG TABEC PO SCH (17:29)
[2019-07-21] MEDS: SUCRALFATE 1 GM TAB PO SCH ×2 (17:29→21:00)
[2019-07-21] MEDS: PROPRANOLOL HCL 10 MG TAB PO SCH (17:38)
[2019-07-21] MEDS: RIFAXIMIN 550 MG TABLET PO SCH (17:39)
[2019-07-21] MEDS: GABAPENTIN 300 MG CAP PO SCH (17:39)
[2019-07-21] MEDS: SPIRONOLACTONE 25 MG TAB PO SCH (17:39)
[2019-07-21] MEDS: FUROSEMIDE 40 MG TAB PO SCH (17:39)
[2019-07-21] MEDS: IRON-VITAMIN-MINERAL CAPSULE PO SCH (17:39)
[2019-07-21] MEDS: LACTULOSE SYRUP 20 GM/30 ML UDC PO PRN (17:40)
--- NOTE | 2019-07-21 18:55 | NUR ---
Bedside report completed with morning nurse. Pt alert and oriented to name, lying in bed HOB 60 degrees. Denies pain at this time. Call light within reach. Bed low and locked.
[2019-07-21 20:40] VITALS: BP 123/73
[2019-07-21] MEDS: TRAZODONE HCL 50 MG TAB PO SCH (21:00)
[2019-07-21 21:40] VITALS: BP 123/73
[2019-07-22] VITALS (7 sets, daily range): BP systolic 92–121; BP diastolic 56–90
[2019-07-22] MEDS: LACTULOSE SYRUP 20 GM/30 ML UDC PO PRN
[2019-07-22] MEDS: PIPER-TAZ 3.375 GM 50 ML IV SCH ×4 (03:00→21:00)
[2019-07-22] MEDS: GABAPENTIN 300 MG CAP PO SCH ×4 (06:00→17:24)
--- NOTE | 2019-07-22 06:09 | NUR ---
Right femoral sterile Drsg changed. Old dressing removed and discarded. Site without redness, swelling. Patient denies discomfort at site. Per sterile technique, area cleansed with chlorhexidine-impregnated sponge and allowed to air dry. Wiped with barrier film and applied transparent sterile membrane drsg. Needleless caps changed and line flushed with 10ml NS.
[2019-07-22 06:46] LABS: BASOPHILS % 0.8 % (0.0-1.0); EOSINOPHILS # (AUTO) 0.6 (0.0-0.4); EOSINOPHILS % 12.3 % (0.0-6.0); HEMATOCRIT 23.9 % (34.2-44.1); HEMOGLOBIN 7.1 g/dL (12.0-16.0); LYMPHOCYTES # (AUTO) 0.7 (1.0-3.2); LYMPHOCYTES % 13.4 % (18.0-39.1); MEAN CORPUSCULAR HEMOGLOBIN 34.3 pg (28-32); MEAN CORPUSCULAR HGB CONC 29.7 g/dL (31-35); MEAN CORPUSCULAR VOLUME 115.5 fL (81-99); MONOCYTES # (AUTO) 0.6 (0.2-0.8); MONOCYTES % 11.5 % (4.4-11.3); NEUTROPHILS # (AUTO) 3.2 (2.1-6.9); NEUTROPHILS % 61.6 % (38.7-80.0); PLATELET COUNT 91 x10e3/uL (140-360); RED BLOOD COUNT 2.07 x10e6/uL (3.6-5.1); RED CELL DISTRIBUTION WIDTH 16.9 % (11.7-14.4)
--- NOTE | 2019-07-22 07:00 | NUR ---
Received bedside shift report from off going nurse. Patient in stable condition, no s/s of distress noted. no pain voiced. Telemetry applied and working. Bed in lowest position and working. Call light within reach.
[2019-07-22 08:15] LABS: ANION GAP 15.1 mmol/L (8-16); CALCIUM 7.8 mg/dL (8.4-10.2); CREATININE, SERUM 1.22 mg/dL (0.57-1.11); POTASSIUM 3.1 mmol/L (3.5-5.1)
[2019-07-22] MEDS: PANTOPRAZOLE SOD 40 MG TABEC PO SCH ×2 (08:50→16:03)
[2019-07-22] MEDS: SUCRALFATE 1 GM TAB PO SCH ×4 (08:50→21:00)
[2019-07-22] MEDS: SPIRONOLACTONE 25 MG TAB PO SCH ×2 (08:50→16:03)
[2019-07-22] MEDS: DULOXETINE HCL 30 MG DELAYED RELEASE PO SCH (08:51)
[2019-07-22] MEDS: IRON-VITAMIN-MINERAL CAPSULE PO SCH ×2 (08:51→16:03)
[2019-07-22] MEDS: GLIMEPIRIDE 2 MG TAB PO SCH (08:51)
[2019-07-22] MEDS: RIFAXIMIN 550 MG TABLET PO SCH ×2 (08:52→16:05)
[2019-07-22] MEDS: FUROSEMIDE 40 MG TAB PO SCH ×2 (08:52→16:05)
[2019-07-22] MEDS ORDERED: SODIUM CHLORIDE 0.9% 250ML 250 ML ONE (09:03)
[2019-07-22] MEDS: PROPRANOLOL HCL 10 MG TAB PO SCH ×2 (10:00→16:04)
--- NOTE | 2019-07-22 10:00 | NUR ---
Paged Dr. Granda about the patients lab results of potassium of 3.1 and ammonia of 188. awaiting a return call.
--- NOTE | 2019-07-22 10:05 | NUR ---
Received a return call from Dr. Robinson Denton exhibition designer for Dr. Granda received new orders.
[2019-07-22] MEDS ORDERED: POTASSIUM CHLORIDE 20 MEQ TAB CR PO ONE ×3 (10:45→12:45)
[2019-07-22 11:23] LABS: PLATELET ESTIMATE SLIGHTLY DECREASED; PLATELET MORPHOLOGY COMMENT NORMAL; RBC MORPHOLOGY COMMENT ABNORMAL
[2019-07-22] MEDS: LACTULOSE SYRUP 20 GM/30 ML UDC PO SCH ×2 (15:02→21:00)
--- NOTE | 2019-07-22 18:58 | NUR ---
Completed bedside shift report and rounding with on coming night nurse. Patient in stable condition, no s/s of distress noted. No pain voiced. Telemetry applied. Wynn applied and draining in to the drainage bag. Bed alarm applied and working. Bed in lowest position and locked. Call light within reach.
--- NOTE | 2019-07-22 18:59 | NUR ---
Bedside nursing report completed with morning nurse. Pt sleepy, but alert and oriented to name, lying in bed HOB 60 degrees. Denies pain at this time. Call light within reach. Bed low and locked.
--- NOTE | 2019-07-22 20:41 | NUR ---
Spoke with Dr. Robinson Denton (on-call for Dr. Granda) regarding elevated BS 212, ordered low dose sliding scale insulin.
[2019-07-22] MEDS ORDERED: DEXTROSE 50% SYRINGE 50 ML IV PRN (20:45)
[2019-07-22] MEDS: TRAZODONE HCL 50 MG TAB PO SCH (21:00)
[2019-07-22] MEDS: INSULIN LISPRO 100 UNIT/1 ML 3ML VIAL SQ SCH (21:30)
[2019-07-23] VITALS (8 sets, daily range): BP systolic 106–121; BP diastolic 62–79
[2019-07-23] MEDS: PIPER-TAZ 3.375 GM 50 ML IV SCH ×4 (03:00→20:50)
[2019-07-23] MEDS: GABAPENTIN 300 MG CAP PO SCH ×5 (05:44→21:25)
[2019-07-23 06:11] LABS: BASOPHILS % 0.7 % (0.0-1.0); EOSINOPHILS # (AUTO) 0.5 (0.0-0.4); LYMPHOCYTES # (AUTO) 0.7 (1.0-3.2); MEAN CORPUSCULAR HEMOGLOBIN 37.1 pg (28-32); MEAN CORPUSCULAR HGB CONC 31.2 g/dL (31-35); MEAN CORPUSCULAR VOLUME 118.8 fL (81-99); MONOCYTES # (AUTO) 0.5 (0.2-0.8); MONOCYTES % 11.2 % (4.4-11.3); NEUTROPHILS # (AUTO) 2.7 (2.1-6.9); NEUTROPHILS % 60.6 % (38.7-80.0); PLATELET COUNT 86 x10e3/uL (140-360); RED BLOOD COUNT 1.86 x10e6/uL (3.6-5.1); RED CELL DISTRIBUTION WIDTH 16.8 % (11.7-14.4)
[2019-07-23 06:16] LABS: HEMATOCRIT 22.1 % (34.2-44.1); HEMOGLOBIN 6.9 g/dL (12.0-16.0)
--- NOTE | 2019-07-23 06:24 | NUR ---
Pg'd Dr. Robinson Denton regarding low lab Hgb 6.9, awaiting call back. Pt sleepy, alert to name call, no acute distress noted.
[2019-07-23 06:37] LABS: ANION GAP 12.2 mmol/L (8-16); CALCIUM 7.4 mg/dL (8.4-10.2); CREATININE, SERUM 1.38 mg/dL (0.57-1.11); POTASSIUM 3.2 mmol/L (3.5-5.1)
[2019-07-23] MEDS ORDERED: POTASSIUM CHLORIDE 20 MEQ TAB CR PO STA (07:25)
[2019-07-23] MEDS: INSULIN LISPRO 100 UNIT/1 ML 3ML VIAL SQ SCH ×4 (07:30→21:00)
[2019-07-23] MEDS ORDERED: SODIUM CHLORIDE 0.9% 250ML 250 ML IV ONE (07:30)
[2019-07-23] MEDS ORDERED: FUROSEMIDE INJ 10 MG/ML 2 ML VIAL IV PRN ×2 (07:30→15:45)
--- NOTE | 2019-07-23 08:00 | NUR ---
Received orders to transfuse 2 units PRBC for hgb of 6.9. Consent was signed by patient.
[2019-07-23] MEDS: GLIMEPIRIDE 2 MG TAB PO SCH (09:18)
[2019-07-23] MEDS: SPIRONOLACTONE 25 MG TAB PO SCH ×2 (09:18→16:21)
[2019-07-23] MEDS: SUCRALFATE 1 GM TAB PO SCH ×4 (09:18→20:50)
[2019-07-23] MEDS: PANTOPRAZOLE SOD 40 MG TABEC PO SCH ×2 (09:18→15:19)
[2019-07-23] MEDS: PROPRANOLOL HCL 10 MG TAB PO SCH ×2 (09:19→16:21)
[2019-07-23] MEDS: IRON-VITAMIN-MINERAL CAPSULE PO SCH ×2 (09:19→16:21)
[2019-07-23] MEDS: DULOXETINE HCL 30 MG DELAYED RELEASE PO SCH (09:19)
[2019-07-23] MEDS: FUROSEMIDE 40 MG TAB PO SCH ×2 (09:19→16:21)
[2019-07-23] MEDS: LACTULOSE SYRUP 20 GM/30 ML UDC PO SCH ×3 (09:19→20:54)
[2019-07-23] MEDS: RIFAXIMIN 550 MG TABLET PO SCH ×2 (09:20→16:21)
[2019-07-23] MEDS ORDERED: SODIUM CHLORIDE 0.9% 250ML 250 ML ONE ×2 (13:18→20:38)
--- NOTE | 2019-07-23 16:05 | NUR ---
First unit of blood complete at this time. No adverse reactions noted during or after transfusion. Pt denies any shortness of breath. Lasix 20mg IV was given after first unit of blood was complete.
--- NOTE | 2019-07-23 16:30 | NUR ---
Second unit of blood started at this time. 0 s/s of acute distress noted.
--- NOTE | 2019-07-23 17:09 | NUR ---
Nutrition Screen Note RD Recommendation for Physician: -Rec adding ADA 1600kcal diet restriction to current diet Plan of Care: RD following, monitoring for tolerance and adequacy Nutrition reason for involvement: Nutrition Risk Trigger MST Primary Diagnose(s): hepatic encephalopathy, UTI PMH: cirrhosis of the liver, diabetes, right vgxfh-fmx-wkvr amputation Ht: 64in Wt: 237.6lb BMI: n/a IBW: 113lb +/- 10% (adjusted for R BKA RD Assessment: (07/22) Chart reviewed. Labs and meds reviewed. 68yo F, who was admitted for hepatic encephalopathy. Visited pt in the room. Pt reported good appetite without any GI complains. Pt denied any chewing or swallowing difficulty. Pt has gained 20lbs recently, which she contributed to fluids gain. Will continue to monitor and follow. Current Diet: cardiac diet Malnutrition Evaluation (07/23/2019) The patient does not meet criteria for a specified degree of malnutrition at this time. Will re-evaluate at follow-up as appropriate. 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 Nutrition Care Level: low Signed: Bethany Barbour, MS, RD, LD
[2019-07-23] MEDS ORDERED: FUROSEMIDE INJ 10 MG/ML 2 ML VIAL IV ONE (18:45)
--- NOTE | 2019-07-23 19:10 | NUR ---
Patient visited in room during nursing rounds. Patient alert and oriented x3. Right BKA. Wynn in place for prolonged immobilization. Pt on bedrest at this time. No distress or discomfort noted at this time. Call garza within reach. Bed alarm active.
--- NOTE | 2019-07-23 19:45 | NUR ---
2nd unit of PRBC done. Pt tolerated transfusion well with no side effects of symptoms. Pt to be given Lasix 20mg IV (post transfusion) as per MD order.
[2019-07-23] MEDS: TRAZODONE HCL 50 MG TAB PO SCH (20:50)
--- NOTE | 2019-07-23 23:50 | NUR ---
Dr. Gerson Denton came and visited pt in room. MD aware of current patient condition. AM labs were ordered.
[2019-07-24] VITALS (8 sets, daily range): BP systolic 102–131; BP diastolic 57–75
[2019-07-24] MEDS: PIPER-TAZ 3.375 GM 50 ML IV SCH ×2 (03:20→08:18)
[2019-07-24] MEDS: SUCRALFATE 1 GM TAB PO SCH ×4 (06:00→20:30)
[2019-07-24] MEDS: GABAPENTIN 300 MG CAP PO SCH ×3 (06:00→17:00)
[2019-07-24] MEDS: PANTOPRAZOLE SOD 40 MG TABEC PO SCH ×2 (06:00→16:04)
[2019-07-24 06:16] LABS: BASOPHILS % 0.8 % (0.0-1.0); EOSINOPHILS # (AUTO) 0.6 (0.0-0.4); EOSINOPHILS % 11.9 % (0.0-6.0); HEMATOCRIT 28.7 % (34.2-44.1); HEMOGLOBIN 9.1 g/dL (12.0-16.0); LYMPHOCYTES # (AUTO) 0.6 (1.0-3.2); LYMPHOCYTES % 13.3 % (18.0-39.1); MEAN CORPUSCULAR HEMOGLOBIN 33.8 pg (28-32); MEAN CORPUSCULAR HGB CONC 31.7 g/dL (31-35); MEAN CORPUSCULAR VOLUME 106.7 fL (81-99); MONOCYTES # (AUTO) 0.5 (0.2-0.8); MONOCYTES % 11.3 % (4.4-11.3); NEUTROPHILS % 62.1 % (38.7-80.0); PLATELET COUNT 71 x10e3/uL (140-360); RED BLOOD COUNT 2.69 x10e6/uL (3.6-5.1); RED CELL DISTRIBUTION WIDTH 20.1 % (11.7-14.4)
[2019-07-24 06:45] LABS: ALBUMIN 1.9 g/dL (3.5-5.0); ALBUMIN/GLOBULIN RATIO 0.6 (0.8-2.0); CALCIUM 7.2 mg/dL (8.4-10.2); CREATININE, SERUM 1.24 mg/dL (0.57-1.11)
--- NOTE | 2019-07-24 06:54 | NUR ---
Received bedside shift report from off going nurse. Patient is resting in bed, no s/s of distress noted at this time. Call light within reach. Bed in the lowest position. Bed alarm on.
[2019-07-24] MEDS: INSULIN LISPRO 100 UNIT/1 ML 3ML VIAL SQ SCH ×4 (07:30→20:34)
[2019-07-24 07:59] LABS: FERRITIN 70.67 ng/mL (4.63-204.00)
[2019-07-24] MEDS: PROPRANOLOL HCL 10 MG TAB PO SCH ×2 (08:18→16:05)
[2019-07-24] MEDS: GLIMEPIRIDE 2 MG TAB PO SCH (08:18)
[2019-07-24] MEDS: IRON-VITAMIN-MINERAL CAPSULE PO SCH ×2 (08:18→16:05)
[2019-07-24] MEDS: FUROSEMIDE 40 MG TAB PO SCH ×2 (08:18→16:05)
[2019-07-24] MEDS: SPIRONOLACTONE 25 MG TAB PO SCH ×2 (08:18→16:05)
[2019-07-24] MEDS: RIFAXIMIN 550 MG TABLET PO SCH ×2 (08:18→16:05)
[2019-07-24] MEDS: LACTULOSE SYRUP 20 GM/30 ML UDC PO SCH ×3 (08:18→20:30)
[2019-07-24] MEDS: DULOXETINE HCL 30 MG DELAYED RELEASE PO SCH (08:18)
[2019-07-24] MEDS ORDERED: POTASSIUM CHLORIDE 10MEQ EA PO ONE (09:55)
--- NOTE | 2019-07-24 10:30 | NUR ---
CVC to right femoral discontinued with tip intact, pressure dressing applied to site.
--- NOTE | 2019-07-24 11:39 | Progress Note ---
DATE: 07/23/2019 HISTORY OF PRESENT ILLNESS: The patient is a 68-year-old female with history of liver cirrhosis, diabetes type 2 with neuropathy, chronic kidney disease, esophageal varices, ascites a recurrent history of anemia that was brought to the emergency room with changes in mental status. PHYSICAL EXAMINATION: GENERAL: Today, she answers simple questions, but she looks sleepy. VITAL SIGNS: Temperature is 99.2, blood pressure 112/65. HEART: Regular rate. LUNGS: Poor inspiratory effort. ABDOMEN: Distended and soft. LABORATORY DATA: On the blood work; white count is 4.37, hemoglobin is 6.9, hematocrit 22.1, creatinine is 1.38, potassium 3.2. Toxicology test came back negative. Blood culture so far negative. The head CT, no acute abnormality. Chest x-ray, a prominence of the with central pulmonary vascular congestion. ASSESSMENT AND PLAN: 1. Acute mental status secondary to hepatic encephalopathy. 2. Decompensated liver cirrhosis. 3. Diabetes type 2 with chronic kidney disease. 4. Chronic kidney disease, stage 3. 5. Coronary artery disease. 6. Anemia. 7. Right above-knee amputation. 8. Hypertension. 9. Hyperlipidemia. 10. Chronic diastolic congestive heart failure. 11. Diabetes type 2 with neuropathy. 12. Peripheral neuropathy. 13. Anxiety. PLAN: At present time is to monitor mental status on this patient and continue lactulose. Continue IV antibiotics. We are going to get a GI consult with Dr. Gerson Denton. Continue other home medications. ADA diet and sliding scale with insulin. The patient is going to also need a blood transfusion because her hemoglobin is very low. I spent more than 35 minutes examining the patient, reviewing overnight event, lab results, and discussing plan of care with the patient and nurse. Marla Sosa MD BASSEM/MODL /[id number] cc: John Granda MD
--- NOTE | 2019-07-24 11:50 | Progress Note ---
DATE: Internal Medicine Progress Note SUBJECTIVE: The patient is doing well. No significant complaint today. PHYSICAL EXAMINATION: VITAL SIGNS: Blood pressure is 113/75, temperature 97.8, heart rate 75 per minute, respiratory rate is 20 per minute, O2 saturation 96%. HEART: Showed regular rhythm. Normal S1, S2 sound. LUNGS: Clear bilaterally. ABDOMEN: Soft with a very distended. EXTREMITIES: Showed right above-knee amputation and edema on the left leg. LABORATORY DATA: On the blood test, we have CBC; white blood count 4.80, hemoglobin 9.1, hematocrit 28.7, and platelet count 71,000. On the chemistry, we have a sodium 130, potassium 3.0, chloride 103, CO2 27, BUN 19, creatinine 1.24, glucose 121, calcium 7.2. Iron 125, TIBC 269, transferrin 46, ferritin , total bilirubin to 2.3. AST 33, ALT 20, alkaline phosphatase 122, albumin 1.9, globulin 3.1. . The ammonia level is 74 when she came here. Blood cultures were negative. IMPRESSION: 1. Hepatic encephalopathy. 2. Hypertension. 3. Cirrhosis with ascites. 4. Obesity. 5. Anemia of chronic disease. 6. Hypokalemia. PLAN OF TREATMENT: Replace potassium with 40 mEq today. She is on Zosyn 3.375 g IV q.6 hours, D50 IV push as needed for hypoglycemia, Cymbalta 60 mg daily, furosemide 40 mg twice a day. Continue gabapentin 600 mg q.6 hours, glimepiride 2 mg daily. Continue monitoring blood sugar before meals and at bedtime. Continue Hemocyte Plus one tablet twice a day, lactulose 20 g twice a day as needed for constipation, 20 g three times a day, Protonix 40 mg twice a day, propranolol 10 mg twice a day, Xifaxan 550 mg twice a day, Aldactone 25 mg twice a day, Carafate 1 g before meals, trazodone 300 mg at bedtime. We are going to continue current medication regimen. Dr. Gerson Denton is on the case. She might need paracentesis. Time spent 45 minutes. MD IMANI Olmstead/LUPIS /[id number]
[2019-07-24 14:37] LABS: ANION GAP 11.5 mmol/L (8-16); CALCIUM 7.7 mg/dL (8.4-10.2); CREATININE, SERUM 1.25 mg/dL (0.57-1.11); POTASSIUM 3.5 mmol/L (3.5-5.1)
--- NOTE | 2019-07-24 15:22 | Diagnostic Imaging Report ---
Abdominal Ultrasound Clinical Diagnosis: Cirrhosis Comparison: Ultrasound May 01, 2015 and MRI 07/20/2019 Technique: Multiple transaxial and longitudinal images were obtained through the abdomen with real time ultrasonography. A low-frequency curvilinear transducer was utilized. Multiple images were submitted for interpretation. Report: Please note that this is a technically suboptimal study. The patient's large body habitus decreases the sensitivity of this examination. The kidneys and retroperitoneal structures are poorly visualized. Liver: The liver measures 14.6 cm in the right midaxillary line. The liver has a nodular contour and coarse architecture with increased echogenicity. The appearance is consistent with liver cirrhosis. There is a small echogenic lesion in the right lobe of the liver that measures 1 x 0.9 x 1.3 cm. It could represent a hemangioma. Other liver lesions are not ruled out. A recent MRI was nondiagnostic because of technical reasons. There are no abnormal cysts. Spleen: The spleen measures 12.7 cm in the left mid axillary line. There are no focal masses or cysts. Gallbladder: Status post cholecystectomy. Biliary tree: There is no gross evidence of intra or extra hepatic biliary ductal dilatation. The common bile duct measures 3 mm. Portal vein: The portal vein measures 9 mm. There is hepatopedal flow. Hepatic veins: Unremarkable. Pancreas: The pancreas is not well seen. Ascites: Moderate Pleural Effusion: Absent Right kidney: The right kidney is poorly visualized. It measures approximately 9.7 x 4.7 x 3.6 cm. Further evaluation is limited. Left kidney: The left kidney is visualized with great difficulty. The evaluation is unreliable. Grossly measures 9.2 x 4.8 x 4.8 cm. Other pathologies cannot BE ruled out. IVC/Aorta: Partially seen segments demonstrate no abnormality. Impression: Limited ultrasound exam because of the body habitus. Cirrhotic liver with ascites. An echogenic lesion in the right lobe of the liver. This could represent a hemangioma. A three-phase liver CT would be suitable in this patient if possible. The multislice detector CT is not as dependent as MRI on patient's cooperation with breath-holding. Signed by: Cleve Briceno MD on 07/24/2019 3:19 PM
--- NOTE | 2019-07-24 19:01 | NUR ---
PAGED DR. LOPEZ WITH ABDOMINAL US RESULTS, NO ANSWER, LVM.
--- NOTE | 2019-07-24 19:17 | NUR ---
BEDSIDE SHIFT REPORT GIVEN TO ONCOMING NURSE. PATIENT IS RESTING IN BED, NO ACUTE DISTRESS NOTED. CALL LIGHT WITHIN REACH. BED IN THE LOWEST POSITION.
--- NOTE | 2019-07-24 19:24 | NUR ---
Patient visited in room during nursing rounds. Patient alert and oriented x3. Right BKA and on bed rest. Pt able to turn in bed by self. Abd distended but soft. Wynn in place for prolonged immobilization. Call garza within reach. Will monitor pt closely.
[2019-07-24] MEDS: TRAZODONE HCL 50 MG TAB PO SCH (20:30)
--- NOTE | 2019-07-24 20:45 | NUR ---
Paged Dr. Granda to inquire if he was aware of abd ultrasound results and if pt will need Paracentesis by tomorrow. Awaiting on MD call back.
[2019-07-25] VITALS (8 sets, daily range): BP systolic 99–124; BP diastolic 57–73
--- NOTE | 2019-07-25 | NUR ---
No call back from Dr. Granda. Patient repositioned in bed for comfort. HOB elevated.
[2019-07-25] MEDS: GABAPENTIN 300 MG CAP PO SCH ×4 (00:10→17:49)
--- NOTE | 2019-07-25 00:45 | NUR ---
Dr. Rani Denton came and visited pt in room. MD aware of pt condition and ordered for pt to have Paracentesis today.
--- NOTE | 2019-07-25 02:45 | NUR ---
Patient signed consent form for Paracentesis.
[2019-07-25] MEDS: SUCRALFATE 1 GM TAB PO SCH ×4 (06:12→20:54)
[2019-07-25] MEDS: PANTOPRAZOLE SOD 40 MG TABEC PO SCH ×2 (06:12→16:30)
[2019-07-25] MEDS: INSULIN LISPRO 100 UNIT/1 ML 3ML VIAL SQ SCH ×4 (07:30→20:55)
--- NOTE | 2019-07-25 07:30 | NUR ---
PT IN BED SLEEPING NO DISTRESS NTOED ,DENIES [PAIN
[2019-07-25] MEDS: LACTULOSE SYRUP 20 GM/30 ML UDC PO SCH ×3 (09:00→20:54)
[2019-07-25] MEDS: FUROSEMIDE 40 MG TAB PO SCH ×2 (09:00→17:00)
[2019-07-25] MEDS: GLIMEPIRIDE 2 MG TAB PO SCH (09:00)
[2019-07-25] MEDS: PROPRANOLOL HCL 10 MG TAB PO SCH ×2 (09:00→17:00)
[2019-07-25] MEDS: SPIRONOLACTONE 25 MG TAB PO SCH ×2 (09:00→17:00)
[2019-07-25] MEDS: IRON-VITAMIN-MINERAL CAPSULE PO SCH ×2 (09:00→17:00)
[2019-07-25] MEDS: DULOXETINE HCL 30 MG DELAYED RELEASE PO SCH (09:00)
[2019-07-25] MEDS: RIFAXIMIN 550 MG TABLET PO SCH ×2 (09:00→17:00)
--- NOTE | 2019-07-25 11:19 | Progress Note ---
DATE: Internal Medicine Progress Note SUBJECTIVE: The patient is doing well except for some distention of the abdomen. She is going for paracentesis today. Also MRI of the liver will be done today because of some lesion in the liver. PHYSICAL EXAMINATION: VITAL SIGNS: Blood pressure 121/73, temperature is 97.4, heart rate 98 per minute, respiratory rate is 20 per minute, oxygen saturation 94%. HEART: Showed regular rhythm. Normal S1, S2 sound. LUNGS: Clear bilaterally. ABDOMEN: Soft but very distended. EXTREMITIES: Showed 1+ edema. LABORATORY DATA: On the blood work, we have CBC; white blood count 4.80, hemoglobin 9.1, hematocrit 28.7, and platelet count 71,000 On the BMP; sodium 136, potassium 3.5, chloride 103, CO2 25, BUN 18, creatinine 1.25, glucose 141, blood sugar of 116, calcium 7.7. FINAL IMPRESSION: 1. Hepatic encephalopathy which is resolving. 2. Cirrhosis of the liver with ascites. 3. Portal hypertension. 4. Uncontrolled diabetes mellitus type 2 with diabetic neuropathy and diabetic nephropathy. 5. Acute on chronic anemia. 6. Obesity. 7. Chronic renal failure stage 3. PLAN OF TREATMENT: She is going to have a paracentesis today. MRI of the liver to get a better picture of liver today because of some possible hemangioma, which is not well seen by ultrasound. Continue Cymbalta 60 mg daily, furosemide 40 mg twice a day, gabapentin 600 mg q.6 hours, glimepiride 2 mg daily. Continue monitoring blood sugar before meals and at bedtime. Continue Hemocyte Plus one tablet twice a day, lactulose 20 g twice a day as needed for constipation and lactulose 20 g three times a day. Continue Protonix 40 mg twice a day, propranolol 10 mg twice a day, Xifaxan 550 mg twice a day, Aldactone 25 mg twice a day, Carafate 1 g before meals and at bedtime, trazodone 300 mg at bedtime. MD IMANI Olmstead/LUPIS /[id number]
[2019-07-25 12:53] LABS: BODY FLUID APPEARANCE SL.CLOUDY; BODY FLUID COLOR YELLOW; BODY FLUID TYPE PERITONEAL
[2019-07-25 12:55] LABS: RBC,BODY FLUID 906 cells/uL; WBC,BODY FLUID 263 cells/uL
[2019-07-25 14:13] LABS: LYMPHOCYTES,BODY FLUID 47 %; MONO/MACROPHG,BODY FLUID 15 %; NEUTROPHILS,BODY FLUID 22 %; OTHER CELLS,BODY FLUID 16 %
--- NOTE | 2019-07-25 15:08 | Diagnostic Imaging Report ---
PROCEDURE: Ultrasound-guided paracentesis Procedural Personnel Attending physician(s): Reed Haddad MD Pre-procedure diagnosis: Ascites Post-procedure diagnosis: Unchanged Indication: Ascites with suspicion of infection Additional clinical history: None Complications: No immediate complications. IMPRESSION: Ultrasound-guided paracentesis with drainage of 1200 mL of serous fluid. Plan: Resume care by clinical team. PROCEDURE SUMMARY: - Limited abdominal ultrasound - Ultrasound-guided paracentesis - Additional procedure(s): None PROCEDURE DETAILS: Pre-procedure Consent: Informed consent for the procedure including risks, benefits and alternatives was obtained and time-out was performed prior to the procedure. Preparation: The site was prepared and draped using maximal sterile barrier technique including cutaneous antisepsis. Anesthesia/sedation Level of anesthesia/sedation: None Initial abdominal ultrasound Initial abdominal ultrasound was performed. Findings: Small ascites. A safe window for paracentesis was identified. Paracentesis Local anesthesia was administered. The peritoneal cavity was accessed and fluid return confirmed position. Ascites was drained. The catheter was then removed, and a sterile bandage was applied. Paracentesis access technique: Real-time ultrasound guidance. Catheter placed: 5Fr Yueh Post-drainage ultrasound: No visible ascites Additional Details Additional description of procedure: None Equipment details: None Specimens removed: Abdominal fluid Estimated blood loss (mL): Minimal (<10cc) Standardized report: [email or web address] Attestation Signer name: Reed Haddad MD I attest that I was present for the entire procedure. I reviewed the stored images and agree with the report as written. Signed by: Reed Haddad MD on 07/25/2019 3:05 PM
--- NOTE | 2019-07-25 15:23 | Diagnostic Imaging Report ---
TECHNIQUE: MRI of the abdomen WITHOUT intravenous contrast. INDICATION: 68-year-old woman with cirrhosis and liver lesion. COMPARISON: Abdomen ultrasound 07/24/2019, abdomen MRI 07/20/2019. FINDINGS: ABSENCE OF INTRAVENOUS CONTRAST DECREASES SENSITIVITY FOR DETECTION OF FOCAL LESIONS AND VASCULAR PATHOLOGY. SUBOPTIMAL EVALUATION SECONDARY TO MOTION ARTIFACT. LOWER THORAX: Unremarkable. LIVER: Cirrhotic morphology of the liver. No definite suspicious hepatic lesions. BILIARY: Prior cholecystectomy. No biliary ductal dilatation or filling defect. SPLEEN: Spleen is prominent and measures 15.9 cm in greatest dimension. PANCREAS: Questionable cystic lesions in the pancreas measure 0.8 cm in the body and 0.5 cm in the tail. No ductal dilatation. ADRENALS: No adrenal nodules. KIDNEYS/URETERS: No hydronephrosis or solid mass lesions. Subcentimeter right renal cysts. PERITONEUM/RETROPERITONEUM: Small volume ascites. LYMPH NODES: No lymphadenopathy. VESSELS: Unremarkable. GI TRACT: No distention or wall thickening. BONES AND SOFT TISSUES: Degenerative changes of the visualized spine. Edema in the soft tissues of the abdomen. IMPRESSION: Suboptimal evaluation secondary to lack of intravenous contrast and motion artifact. Cirrhosis with portal hypertension and small volume ascites. No definite suspicious liver lesion. If indicated, abdomen CT with and without intravenous contrast (liver protocol) may be obtained. Signed by: Camilla Thomas MD on 07/25/2019 3:19 PM
--- NOTE | 2019-07-25 16:34 | NUR ---
Nutrition Screen Note RD Recommendation for Physician: -Rec adding ADA 1600kcal diet restriction to current diet Plan of Care: RD following, monitoring for tolerance and adequacy - Diet education provided 07/24 Nutrition reason for involvement: MD consult- diet education Primary Diagnose(s): hepatic encephalopathy, UTI PMH: cirrhosis of the liver, diabetes, right [id number] amputation Ht: 64in Wt: 237.6lb BMI: n/a IBW: 113lb +/- 10% (adjusted for R BKA) RD Assessment: 07/24: Follow up. Pt seen per MD consult for diet education. Pt s/p paracentesis with 1200 ml fluid removal today. Pt reports that she does not feel any different with the fluid removal and continues on supplemental O2. Pt receptive to diet education at time of visit. Pt educated on high Na foods to avoid, label reading, recommended seasonings, and recommended Na amounts for snacks and meals. Diet education materials provided. All questions and concerns addressed at time of visit. Pt continues with good po intake, no GI distress. Will continue to monitor. (07/22) Chart reviewed. Labs and meds reviewed. 68yo F, who was admitted for hepatic encephalopathy. Visited pt in the room. Pt reported good appetite without any GI complains. Pt denied any chewing or swallowing difficulty. Pt has gained 20lbs recently, which she contributed to fluids gain. Will continue to monitor and follow. Current Diet: cardiac diet Malnutrition Evaluation (07/23/2019) The patient does not meet criteria for a specified degree of malnutrition at this time. Will re-evaluate at follow-up as appropriate. 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 Learner(s): pt Barriers: none Cultural/Language Modifications: none Readiness: ready Method: handout, discussion Topics: low sodium diet restriction Understanding/Compliance: fair Nutrition Care Level: low Signed: Rupa Gonzalez RD, LD,[facility]
--- NOTE | 2019-07-25 17:49 | NUR ---
PT UP IN BED ,DENIES PAIN ,O2 2L NC IN PLACE MEYER TO BSD YELLOW URINE.
--- NOTE | 2019-07-25 19:00 | NUR ---
RECEIVED PATIENT IN BEDSIDE SHIFT REPORT. PATIENT RESTING IN BED AT THIS TIME, BREATHING EVEN AND NON-LABORED. NO S&S OF DISTRESS NOTED. BED LOCKED IN LOWEST POSITION, SIDE RAILS UPX2, CALL LIGHT IN REACH.
[2019-07-25] MEDS: TRAZODONE HCL 50 MG TAB PO SCH (20:54)
[2019-07-26] VITALS (7 sets, daily range): BP systolic 99–107; BP diastolic 62–81
[2019-07-26] MEDS: GABAPENTIN 300 MG CAP PO SCH ×4 (00:41→17:20)
[2019-07-26 06:08] LABS: ANION GAP 9.3 mmol/L (8-16); CALCIUM 7.4 mg/dL (8.4-10.2); CREATININE, SERUM 1.52 mg/dL (0.57-1.11); POTASSIUM 3.3 mmol/L (3.5-5.1)
[2019-07-26] MEDS: INSULIN LISPRO 100 UNIT/1 ML 3ML VIAL SQ SCH (08:00)
[2019-07-26] MEDS: IRON-VITAMIN-MINERAL CAPSULE PO SCH ×2 (08:29→17:00)
[2019-07-26] MEDS: PANTOPRAZOLE SOD 40 MG TABEC PO SCH ×2 (08:29→16:30)
[2019-07-26] MEDS: GLIMEPIRIDE 2 MG TAB PO SCH (08:29)
[2019-07-26] MEDS: SUCRALFATE 1 GM TAB PO SCH ×4 (08:29→22:06)
[2019-07-26] MEDS: SPIRONOLACTONE 25 MG TAB PO SCH ×2 (08:29→17:00)
[2019-07-26] MEDS: DULOXETINE HCL 30 MG DELAYED RELEASE PO SCH (08:29)
[2019-07-26] MEDS: PROPRANOLOL HCL 10 MG TAB PO SCH ×2 (08:30→17:00)
[2019-07-26] MEDS: FUROSEMIDE 40 MG TAB PO SCH ×2 (08:30→17:00)
[2019-07-26] MEDS: LACTULOSE SYRUP 20 GM/30 ML UDC PO SCH ×3 (08:30→22:06)
[2019-07-26] MEDS: RIFAXIMIN 550 MG TABLET PO SCH ×2 (08:30→17:00)
[2019-07-26] MEDS ORDERED: ALBUTEROL SULF 0.083% NEB SOLN 3 ML NEB NEB PRN (09:30)
--- NOTE | 2019-07-26 10:59 | Diagnostic Imaging Report ---
EXAMINATION: CHEST SINGLE (PORTABLE) INDICATION: Shortness of breath COMPARISON: Chest are graft of 07/20/2019 FINDINGS: LINES/TUBES:EKG leads overlie the chest. LUNGS:The lung volumes remain very low. No focal consolidation or pulmonary edema. PLEURA:No pleural effusion or pneumothorax. MEDIASTINUM:The cardiomediastinal silhouette appears normal in size and shape. BONES/SOFT TISSUES:No acute osseous injury. ABDOMEN:No free air under the diaphragm. IMPRESSION: Very low lung volumes. No focal pneumonia or pulmonary edema. Signed by: Reed Haddad MD on 07/26/2019 10:56 AM
--- NOTE | 2019-07-26 11:25 | Progress Note ---
DATE: Internal Medicine Progress Note SUBJECTIVE: The patient is sleeping. PHYSICAL EXAMINATION: VITAL SIGNS: Blood pressure 99/81, temperature 97.4, heart rate 88 per minute, respiratory rate 18 per minute, and oxygen saturation 93%. HEART: Regular rhythm. Normal S1, S2 sound. LUNGS: Clear bilaterally. ABDOMEN: Soft, slightly distended. EXTREMITIES: 1+ edema on the left leg. LABORATORY DATA: On the blood work, we have BMP; sodium 131, potassium 3.3, chloride 102, CO2 of 23, BUN 24, creatinine 1.52, and glucose is 123, last blood sugar 159. Magnesium is 1.8. On the CBC; white blood count 4.80, hemoglobin 9.1, hematocrit 28.7, and platelet count is 71,000. MICROBIOLOGY: Blood culture x2 negative for 5 days. Fluid culture from the ascites is still pending. IMAGING DATA: MRI of the abdomen showed cirrhosis with portal hypertension, small volume ascites, no definitely suspicious liver lesion is indicated. Abdomen CT with or without intravenous contrast renal failure. Last chest x-ray showed hyperinflated lungs, stable elevation of the right hemidiaphragm which may be due to consolidation or effusion. Prominent cardiac silhouette and central vascular crowding due to low lung volumes. No acute bony abnormalities. FINAL IMPRESSION: 1. Hepatic encephalopathy. 2. Cirrhosis with ascites. 3. Portal hypertension secondary to cirrhosis. 4. Uncontrolled diabetes mellitus type 2 with diabetic neuropathy and diabetic nephropathy. 5. Acute on chronic anemia. 6. Obesity. 7. Chronic renal failure stage 3 secondary to diabetes. PLAN OF TREATMENT: We are going to order a chest x-ray today because of shortness of breath. We are going to continue Cymbalta 60 mg daily, furosemide 40 mg twice a day, continue gabapentin 600 mg q.6 hours, and glimepiride 2 mg daily. Continue to monitor blood sugar before meals and at bedtime. Continue Hemocyte Plus one tablet twice a day, lactulose 20 g twice a day as needed for constipation, and 20 g three times a day for schedule. Continue Protonix 40 mg twice a day, potassium chloride 40 mEq daily, propranolol 10 mg twice a day for portal hypertension, continue Xifaxan 550 mg twice a day, Aldactone 25 mg twice a day, Carafate 1 g before meals and at bedtime and Desyrel 300 mg at bedtime. We will increase the potassium to 40 mEq daily due to the hypokalemia. We are going to order a chest x-ray because she was complaining of shortness of breath. Yesterday. We are going to order some albuterol as needed for shortness of breath. The last chest x-ray showed no evidence of any CHF or pneumonia. I am going to order another chest x-ray today. MD IMANI Olmstead/LUPIS /[id number]
--- NOTE | 2019-07-26 11:29 | Progress Note ---
DATE: Internal Medicine Progress Note ADDENDUM: The patient is complaining of shortness of breath. I ordered a chest x-ray and also a V/Q scan to rule out PE, rule out CHF. Pulmonary consult with Dr. Cash, also on albuterol q.4 hours as needed for shortness of breath. Oxygen saturation was 93%. MD IMANI Olmstead/LUPIS /[id number]
[2019-07-26] MEDS ORDERED: DEXTROSE 50% SYRINGE 50 ML IV PRN (12:30)
[2019-07-26] MEDS: INSULIN REGULAR, HUMAN 100 UNIT/1 ML 3ML VIAL SQ SCH ×2 (16:30→22:07)
--- NOTE | 2019-07-26 17:16 | Consultation ---
DATE OF CONSULTATION: 07/26/2019 Pulmonary Medicine Consult REASON FOR REFERRAL: Shortness of breath. HISTORY OF PRESENT ILLNESS: Ms. Harden is a pleasant 68-year-old female with shortness of breath. The patient was admitted to emergency room on late July 20, 2019. The patient had altered mental status. The patient was lethargic. The patient with CT of the head, which was unremarkable. Chest x-ray was with significant hypoinflation lungs with significant elevation of right hemidiaphragm and at most, there is venous hyperemia due to either overload versus low lung volumes. The patient is continued in the hospital since. However, progress has been slow. It is felt that the hepatic encephalopathy is improving. The patient is definitely lethargic, a visit today. She is reported to be taking her medicines. She is alert and oriented x2. There is some shallow breathing, but no respiratory accessory muscle recruitment significant. PAST MEDICAL HISTORY: History of liver cirrhosis, esophageal varices, history of GI bleed, obesity BMI of 42, diabetes with neuropathy, depression, chronic diastolic CHF, stage 3 CKD, hyperlipidemia, hypertensive heart disease, GERD, anxiety, left hip replacement, right knee replacement, right AKA, laparoscopic cholecystectomy, and hysterectomy. MEDICATIONS: Medication list reviewed per the chart record. ALLERGIES: MORPHINE, PER RECORD. SOCIAL HISTORY: Limited, but reportedly was recently . Lives with . She was a smoker of tobacco. No alcohol cited common. FAMILY HISTORY: Noncontributory to this condition. REVIEW OF SYSTEMS: Cannot get reliably. She is lethargic and altered. PHYSICAL EXAMINATION: VITAL SIGNS: Afebrile, vital signs noted per the chart record. GENERAL: In bed, lethargic, awakens for about 6 to 8 seconds before falling back asleep. HEENT: Normocephalic and atraumatic. NECK: Supple. Throat midline. LUNGS: Bilateral air entry, limited, clear. CARDIOVASCULAR: S1 and S2. No murmurs, rubs, or gallops. ABDOMEN: Soft, obese, and nontender. EXTREMITIES: No clubbing. No cyanosis. There is edema to left leg. LABORATORY DATA: 5 white count, 29 hematocrit, 21 platelets. 6.9 reticulocyte. INR 1.08. Chemistry with 131 sodium, 3.3 potassium, 24 BUN, 1.5 creatinine, GFR 34 estimated, glucose 123, calcium 7.4. LFTs recently; AST normal, ALT normal, alkaline phosphatase normal. Ammonia came down from 74 to 26. Chest x-ray was done today with dry lungs, just low lung volumes. IMPRESSION AND PLAN: 1. Shortness of breath, multifactorial, but large component due to abdominal restriction. 2. Significantly elevated right hemidiaphragm. 3. Atelectasis. 4. Admit with encephalopathy, hepatic and toxic/metabolic components. 5. History of chronic diastolic congestive heart failure, mild acute congestive heart failure, probably better. 6. History of decompensated liver cirrhosis. 7. History of portal hypertension and esophageal varices. 8. Diabetes. 9. Obesity, possible obesity hypoventilation syndrome. 10. Obesity, possible sleep apnea. 11. History of depression. 12. Hyperlipidemia. 13. Hypertension. 14. Gastroesophageal reflux disease. 15. Anxiety. 16. History of? ischemic heart disease. 17. History of right above-knee amputation. 18. Debility/weakness. At this time, continue her lactulose and medicine for encephalopathy. Continue to follow up closely. We will check blood gas today in case we have to consider treatment. Positive airway pressure, we have some conveyed risks due to the patient's altered mental status. We will consider based on risk and benefit of blood gas analysis. Continue to give supportive oxygen to the patient. Noted the patient with ascites removal reported 1 L yesterday. Continue to decrease abdominal distention therefore improving breathing. We will follow along closely. Thank you very much, Dr. Granda, for this consult. Please call for questions. MD ALAN Lee/MODL /[id number]
--- NOTE | 2019-07-26 17:20 | NUR ---
PT IN BED RESTING ,NO DISTRESS NOTED,NO S/S DISCOMFORT.
--- NOTE | 2019-07-26 18:59 | Diagnostic Imaging Report ---
Perfusion Lung Scan NOTE: Lung ventilation studies with xenon are not being performed per the recommendation of the Society of [employer] and [employer]. It is not possible to be certain that the ventilation system is adequately disinfected. Ventilation studies with Tc-99m DTPA particles is contraindicated because the delivery by nebulization generates too many water droplets from the patient's airway. Clinical Information: SOB. Comparison: Chest radiograph 07/26/2019 Discussion: Ventilation images were not obtained. See note above. Perfusion images of the lungs were obtained in multiple projections following intravenous administration of approximately 6.3 mCi of Tc-99m MAA. Distribution of tracer is irregular throughout the lungs. There are no segmental perfusion defects of any size. The cardiomediastinal silhouette is unremarkable.. Impression: 1. Scan findings represent a VERY LOW probability for acute pulmonary embolic disease based on the PIOPED II criteria. A ventilation study would not have altered the assigned probability 2. Scan findings are compatible with diffuse parenchymal and/or obstructive lung disease. Signed by: Dr. Ellen Long M.D. on 07/26/2019 6:55 PM
--- NOTE | 2019-07-26 19:00 | NUR ---
RECEIVED PATIENT IN BEDSIDE SHIFT REPORT. PATIENT RESTING IN BED AT THIS TIME. NO PAIN REPORTED. NO S&S OF DISTRESS NOTED. BED ALARM ACTIVE. BED LOCKED IN LOWEST POSITION, SIDE RAILS UPX2, CALL LIGHT IN REACH.
[2019-07-26 19:46] LABS: ANION GAP 9.2 mmol/L (8-16); CALCIUM 7.6 mg/dL (8.4-10.2); CREATININE, SERUM 1.77 mg/dL (0.57-1.11); POTASSIUM 3.2 mmol/L (3.5-5.1)
[2019-07-26] MEDS: TRAZODONE HCL 50 MG TAB PO SCH (22:06)
[2019-07-27] VITALS (8 sets, daily range): BP systolic 95–119; BP diastolic 61–88
[2019-07-27] MEDS: GABAPENTIN 300 MG CAP PO SCH ×4 (00:44→18:20)
[2019-07-27 07:13] LABS: ANION GAP 10.9 mmol/L (8-16); CALCIUM 7.5 mg/dL (8.4-10.2); CREATININE, SERUM 1.75 mg/dL (0.57-1.11)
[2019-07-27 07:16] LABS: POTASSIUM 2.9 mmol/L (3.5-5.1)
--- NOTE | 2019-07-27 07:29 | NUR ---
PATIENT IN BED WITH HEAD OF BED ELEVATED WATCHING TV, NO DISTRESS NOTED. BED IN LOWER POSITION, CALL LIGHT AT REACH.
[2019-07-27] MEDS: INSULIN REGULAR, HUMAN 100 UNIT/1 ML 3ML VIAL SQ SCH ×4 (07:30→22:01)
[2019-07-27] MEDS: SUCRALFATE 1 GM TAB PO SCH ×4 (07:30→22:00)
[2019-07-27] MEDS: PANTOPRAZOLE SOD 40 MG TABEC PO SCH ×2 (07:30→16:30)
[2019-07-27] MEDS: PROPRANOLOL HCL 10 MG TAB PO SCH ×2 (09:00→17:00)
[2019-07-27] MEDS: IRON-VITAMIN-MINERAL CAPSULE PO SCH ×2 (09:59→17:20)
[2019-07-27] MEDS: DULOXETINE HCL 30 MG DELAYED RELEASE PO SCH (09:59)
[2019-07-27] MEDS: SPIRONOLACTONE 25 MG TAB PO SCH ×2 (09:59→17:20)
[2019-07-27] MEDS: POTASSIUM CHLORIDE 10MEQ EA PO SCH (09:59)
[2019-07-27] MEDS: GLIMEPIRIDE 2 MG TAB PO SCH (09:59)
[2019-07-27] MEDS: FUROSEMIDE 40 MG TAB PO SCH ×2 (10:00→17:21)
[2019-07-27] MEDS: RIFAXIMIN 550 MG TABLET PO SCH ×2 (10:00→17:21)
[2019-07-27] MEDS: LACTULOSE SYRUP 20 GM/30 ML UDC PO SCH ×3 (10:00→22:00)
--- NOTE | 2019-07-27 10:38 | NUR ---
SPOKE WITH MD REGARDING ABNORMAL LAB RESULT. NEW ORDER RECEIVED.
[2019-07-27] MEDS ORDERED: POTASSIUM CHLORIDE 10MEQ EA PO ONE ×2 (11:15→13:00)
--- NOTE | 2019-07-27 12:29 | NUR ---
Pulmonary Medicine DATE: 07/27/2019 SUBJECTIVE: 2 L/min oxygen NC delivery she ate well today much better mentation, conversing REVIEW OF SYSTEMS: no rash, no chest pain PHYSICAL EXAMINATION: VITAL SIGNS: vital signs noted per the chart record. GENERAL: In bed, ao x 3 HEENT: Normocephalic and atraumatic. NECK: Supple. Throat midline. LUNGS: Bilateral air entry, limited, clear. CARDIOVASCULAR: S1 and S2. No murmurs, rubs, or gallops. ABDOMEN: Soft, obese, nontender. EXTREMITIES: No clubbing. No cyanosis. edema to left leg. LABORATORY DATA: k 2.9, hco3 23, cr 1.75. wbc 4.8, hct 29, plt 71. IMPRESSION AND PLAN: 1. Shortness of breath, multifactorial, but large component due to abdominal restriction. 2. Significantly elevated right hemidiaphragm. Suspected obesity hypoventilation syndrome. 3. Atelectasis. 4. Admit with encephalopathy, hepatic and toxic/metabolic components. 5. History of chronic diastolic congestive heart failure, mild acute congestive heart failure, probably better. 6. History of decompensated liver cirrhosis. 7. History of portal hypertension and esophageal varices. 8. Diabetes. 9. Obesity, suspected OHS 10. Obesity, possible sleep apnea. 11. History of depression. 12. Hyperlipidemia. 13. Hypertension. 14. Gastroesophageal reflux disease. 15. Anxiety. 16. History of ?ischemic heart disease. 17. History of right above-knee amputation. 18. Debility/weakness. Continue lactulose, rifaximin Outpatient sleep studies Aggressive therapy, PT/OT Continue to decrease abdominal distention, diuretics + paracentesis prn Lung expansion fix k Thank you very much, Dr. Granda, for this consult. Please call for questions.
--- NOTE | 2019-07-27 15:12 | NUR ---
PATIENT ASSISTED WITH DIAPER CHANGE, REPOSITIONED IN BED. CALL LIGHT AT REACH.
--- NOTE | 2019-07-27 16:36 | Progress Note ---
DATE: Internal Medicine Progress Note SUBJECTIVE: The patient is doing well. She had a paracentesis done. We are waiting for the fluid culture report to come back and make sure it is negative before she gets discharged. She is going to have another paracentesis done. PHYSICAL EXAMINATION: VITAL SIGNS: Blood pressure 104/67, temperature 97.9, heart rate 82 per minute, respiratory rate 18 per minute, oxygen saturation 97%. HEART: Showed regular rhythm. Normal S1, S2 sound. LUNGS: Clear bilaterally. ABDOMEN: Soft, but very distended. EXTREMITIES: Show right above-knee amputation and now 2+ edema on the left leg. LABORATORY DATA: On the CBC, white blood count 4.80, hemoglobin 9.1, hematocrit 28.7, platelet count 71,000. On the BMP; sodium 134, potassium 2.9, chloride 103, CO2 23, BUN 27; creatinine 1.75, glucose 102, calcium 7.5, ammonia level is 74, back to normal finally. On the fluid culture, we have no organism seen, no growth after two days. We are going to wait until tomorrow and make sure there is no evidence of infection. The patient is on empiric antibiotics. She might have another paracentesis done due to the fluid retention. On the chest x-ray showed very low lung volume of focal pneumonia or pulmonary edema, which need V-Q scan also, which showed very low probability for acute thrombolic disease based on COPD criteria. Ventilation study diffuse parenchymal and other type of lung disease. MRI of the abdomen showed the cirrhosis with portal hypertension. No suspicious liver lesion. FINAL IMPRESSION: 1. Cirrhosis with ascites. 2. Hepatic encephalopathy. 3. Uncontrolled diabetes mellitus type 2 with diabetic neuropathy and diabetic nephropathy. 4. Depression. 5. Obesity. 6. Ascites secondary to portal hypertension. 7. Portal hypertension. 8. Right above-knee amputation. PLAN OF TREATMENT: The patient is getting albuterol q.4 hours as needed for shortness of breath, D50 IV push as needed for hypoglycemia, Cymbalta 60 mg daily, furosemide 50 mg p.o. twice a day, gabapentin 600 mg q.6 hours, glimepiride 2 mg daily, Hemocyte Plus one tablet twice a day, lactulose 20 g twice a day as needed for constipation, lactulose 20 g three times a day scheduled, Protonix 40 mg twice a day, potassium chloride 40 mEq daily. Continue with propranolol 10 mg twice a day, Xifaxan 550 mg twice a day, Aldactone 25 mg twice a day, Carafate 1 g before meals and at bedtime and trazodone 300 mg at bedtime. We are going to ordered another BMP and a CBC tomorrow. The patient received blood transfusion recently, we are going to be sure that hemoglobin does not drop, happened several times in the past and required blood transfusion. At the same time, I am going to be sure the fluid culture is negative after three days before the patient has been released. Dr. Kelsey is going to be covering for me starting today until July 29. Time spent around 45 minutes. MD IMANI Olmstead/LUPIS /[id number]
--- NOTE | 2019-07-27 19:00 | NUR ---
RECEIVED PATIENT IN BEDSIDE SHIFT REPORT. PATIENT A&OX3. NO PAIN REPORTED. NO S&S OF DISTRESS NOTED. RA AT THIS TIME, NO SOB REPORTED. BED ALARM ON. BED LOCKED IN LOWEST POSITION, SIDE RAILS UPX2, CALL LIGHT IN REACH.
[2019-07-27] MEDS: TRAZODONE HCL 50 MG TAB PO SCH (22:00)
[2019-07-28] VITALS (9 sets, daily range): BP systolic 97–117; BP diastolic 60–68
[2019-07-28] MEDS: GABAPENTIN 300 MG CAP PO SCH ×4 (01:17→16:59)
[2019-07-28 06:27] LABS: BASOPHILS % 0.3 % (0.0-1.0); EOSINOPHILS # (AUTO) 0.6 (0.0-0.4); EOSINOPHILS % 10.9 % (0.0-6.0); HEMATOCRIT 26.1 % (34.2-44.1); HEMOGLOBIN 8.4 g/dL (12.0-16.0); LYMPHOCYTES # (AUTO) 0.8 (1.0-3.2); LYMPHOCYTES % 13.2 % (18.0-39.1); MEAN CORPUSCULAR HEMOGLOBIN 34.4 pg (28-32); MEAN CORPUSCULAR HGB CONC 32.2 g/dL (31-35); MONOCYTES # (AUTO) 0.6 (0.2-0.8); MONOCYTES % 9.9 % (4.4-11.3); NEUTROPHILS # (AUTO) 3.8 (2.1-6.9); NEUTROPHILS % 65.4 % (38.7-80.0); PLATELET COUNT 68 x10e3/uL (140-360); RED BLOOD COUNT 2.44 x10e6/uL (3.6-5.1); RED CELL DISTRIBUTION WIDTH 18.9 % (11.7-14.4)
[2019-07-28 06:56] LABS: ALBUMIN 1.7 g/dL (3.5-5.0); ALBUMIN/GLOBULIN RATIO 0.5 (0.8-2.0); ANION GAP 9.6 mmol/L (8-16); CALCIUM 7.8 mg/dL (8.4-10.2); CREATININE, SERUM 1.68 mg/dL (0.57-1.11); POTASSIUM 3.6 mmol/L (3.5-5.1)
--- NOTE | 2019-07-28 07:37 | Diagnostic Imaging Report ---
EXAMINATION: CHEST SINGLE (PORTABLE) INDICATION: CHF. COMPARISON: Chest radiograph 07/26/2019. FINDINGS: LINES/TUBES: EKG leads overlie the chest. LUNGS: Low lung volumes with vascular crowding and mild interstitial opacities. No lobar consolidation. PLEURA: No pleural effusion or pneumothorax. MEDIASTINUM: The cardiomediastinal silhouette appears normal in size and shape. BONES/SOFT TISSUES: No acute osseous abnormality. ABDOMEN: No free air under the diaphragm. IMPRESSION: Very lung lung volumes, cannot exclude mild interstitial edema or infectious process. No lobar pneumonia. Signed by: Dr. Kristie Auguste MD on 07/28/2019 7:33 AM
[2019-07-28 09:31] LABS: PLATELET MORPHOLOGY COMMENT NORMAL
[2019-07-28 09:32] LABS: PLATELET ESTIMATE MODERATELY DECREASED
[2019-07-28 09:33] LABS: RBC MORPHOLOGY COMMENT ABNORMAL
[2019-07-28 09:34] LABS: HYPOCHROMASIA SLIGHT
[2019-07-28] MEDS: SUCRALFATE 1 GM TAB PO SCH ×4 (09:48→21:00)
[2019-07-28] MEDS: PANTOPRAZOLE SOD 40 MG TABEC PO SCH ×2 (09:48→16:17)
[2019-07-28] MEDS: INSULIN REGULAR, HUMAN 100 UNIT/1 ML 3ML VIAL SQ SCH ×4 (09:50→21:00)
[2019-07-28] MEDS: DULOXETINE HCL 30 MG DELAYED RELEASE PO SCH (09:50)
[2019-07-28] MEDS: IRON-VITAMIN-MINERAL CAPSULE PO SCH ×2 (09:50→16:57)
[2019-07-28] MEDS: SPIRONOLACTONE 25 MG TAB PO SCH ×2 (09:50→16:56)
[2019-07-28] MEDS: GLIMEPIRIDE 2 MG TAB PO SCH (09:50)
[2019-07-28] MEDS: PROPRANOLOL HCL 10 MG TAB PO SCH ×2 (09:52→16:59)
[2019-07-28] MEDS: LACTULOSE SYRUP 20 GM/30 ML UDC PO SCH ×3 (09:53→16:59)
[2019-07-28] MEDS: POTASSIUM CHLORIDE 10MEQ EA PO SCH (09:53)
[2019-07-28] MEDS: RIFAXIMIN 550 MG TABLET PO SCH ×2 (09:53→16:59)
[2019-07-28] MEDS: FUROSEMIDE 40 MG TAB PO SCH ×2 (09:53→16:59)
[2019-07-28] MEDS ORDERED: DEXTROSE 50% SYRINGE 50 ML IV PRN (16:15)
--- NOTE | 2019-07-28 17:26 | NUR ---
Pulmonary Medicine DATE: 07/28/2019 SUBJECTIVE: gerber in place UOP noted less edema to extremities 2 L/min oxygen REVIEW OF SYSTEMS: no rash, no chest pain PHYSICAL EXAMINATION: VITAL SIGNS: vital signs noted per the chart record. GENERAL: In bed, ao x 3 HEENT: Normocephalic and atraumatic. NECK: Supple. Throat midline. LUNGS: Bilateral air entry, limited, clear. CARDIOVASCULAR: S1 and S2. No murmurs, rubs, or gallops. ABDOMEN: Soft, obese, nontender. EXTREMITIES: No clubbing. No cyanosis. edema to left leg. LABORATORY DATA: 3.6 k, cr 1.68 . wbc 6, hct 26, plt 68 IMPRESSION AND PLAN: 1. Shortness of breath, multifactorial, but large component due to abdominal restriction. 2. Significantly elevated right hemidiaphragm. Suspected obesity hypoventilation syndrome. 3. Atelectasis. 4. Admit with encephalopathy, hepatic and toxic/metabolic components. 5. History of chronic diastolic congestive heart failure, mild acute congestive heart failure, probably better. 6. History of decompensated liver cirrhosis. 7. History of portal hypertension and esophageal varices. 8. Diabetes. 9. Obesity, suspected OHS 10. Obesity, possible sleep apnea. 11. History of depression. 12. Hyperlipidemia. 13. Hypertension. 14. Gastroesophageal reflux disease. 15. Anxiety. 16. History of ?ischemic heart disease. 17. History of right above-knee amputation. 18. Debility/weakness. Continue lactulose, rifaximin Outpatient sleep studies Aggressive therapy, PT/OT Continue to decrease abdominal distention, diuretics + paracentesis prn Lung expansion follow creatinine and k Thank you very much, Dr. Granda, for this consult. Please call for questions.
--- NOTE | 2019-07-28 20:00 | NUR ---
RECEIVED REPORT FROM 7AM NURSE, CALL LIGHT IN REACH. WILL CONTINUE TO MONITOR.
[2019-07-28] MEDS: TRAZODONE HCL 50 MG TAB PO SCH (21:00)
--- NOTE | 2019-07-28 21:24 | NUR ---
ASSUMED CARE OF PATIENT THIS AM. THE PATIENT HAS A LEFT NECK EJ 18G THAT IS SALINE LOCKED. SHE HAS A RIGHT AKA AND IS MORBIDLY OBESE. SHE IS ABLE TO CLEARLY ANSWER QUESTIONS APPROPRIATELY AND IS A A [employer]. SHE COMPLAINS OF NO PAIN. SHE IS ON LACTULOSE AND IS EXCORIATED IN HER GENITAL AREA. SHE HAS A MEYER BECAUSE OF THE DIARRHEA. SHE IS IN A DIAPER. SHE IS HELPED TO SIT UP IN BED FOR MEALS AND EAT FAIRLY WELL, SHE WAS SEEN BY DR. CALIX AND DR. Rani MESSINA TODAY. DR. CALIX BROUGHT UP HOSPICE IN A CONVERSATION WITH THE PATIENT TODAY AND DR. MESSINA BROUGHT UP THE SAME SUBJECT. HER DAUGHTER CALLED SEVERAL TIMES AND HER QUESTIONS WERE ANSWERED REGARDING HOSPICE. THE PATIENT NEEDS A CASE MANAGEMENT CONSULT TO HELP WITH HER DISCHARGE. THE PATIENT IS EDEMATOUS AND HAS 1+ PITTING IN HER LEFT LEG. SHE IS COMPLIANT WITH HER MEDS.
[2019-07-29] VITALS (9 sets, daily range): BP systolic 94–111; BP diastolic 60–75
[2019-07-29] MEDS: GABAPENTIN 300 MG CAP PO SCH ×4 (00:27→18:20)
[2019-07-29 07:01] LABS: BASOPHILS # (AUTO) 0.1 (0.0-0.1); BASOPHILS % 0.7 % (0.0-1.0); EOSINOPHILS # (AUTO) 0.8 (0.0-0.4); EOSINOPHILS % 9.5 % (0.0-6.0); HEMATOCRIT 28.4 % (34.2-44.1); LYMPHOCYTES % 11.8 % (18.0-39.1); MEAN CORPUSCULAR HEMOGLOBIN 34.4 pg (28-32); MEAN CORPUSCULAR HGB CONC 31.7 g/dL (31-35); MEAN CORPUSCULAR VOLUME 108.4 fL (81-99); MONOCYTES % 11.4 % (4.4-11.3); NEUTROPHILS # (AUTO) 5.5 (2.1-6.9); NEUTROPHILS % 66.1 % (38.7-80.0); PLATELET COUNT 94 x10e3/uL (140-360); RED BLOOD COUNT 2.62 x10e6/uL (3.6-5.1); RED CELL DISTRIBUTION WIDTH 18.7 % (11.7-14.4)
[2019-07-29 07:09] LABS: INR 1.01; PROTHROMBIN TIME 13.9 seconds (11.9-14.5)
[2019-07-29 07:21] LABS: ALBUMIN 1.8 g/dL (3.5-5.0); ALBUMIN/GLOBULIN RATIO 0.5 (0.8-2.0); ANION GAP 10.1 mmol/L (8-16); CALCIUM 7.9 mg/dL (8.4-10.2); CREATININE, SERUM 1.79 mg/dL (0.57-1.11); POTASSIUM 4.1 mmol/L (3.5-5.1)
--- NOTE | 2019-07-29 07:26 | NUR ---
PATIENT IN BED RESTING WITH EYES CLOSED, NO DISTRESS NOTED. DRYNESS TO SKIN. BED IN LOWER POSITION, CALL LIGHT AT REACH.
[2019-07-29] MEDS: INSULIN REGULAR, HUMAN 100 UNIT/1 ML 3ML VIAL SQ SCH ×4 (07:30→21:33)
[2019-07-29] MEDS: PANTOPRAZOLE SOD 40 MG TABEC PO SCH ×2 (08:00→16:30)
[2019-07-29] MEDS: SUCRALFATE 1 GM TAB PO SCH ×4 (08:00→21:27)
[2019-07-29 08:36] LABS: PLATELET MORPHOLOGY COMMENT NORMAL; RBC MORPHOLOGY COMMENT ABNORMAL
[2019-07-29 08:37] LABS: PLATELET ESTIMATE MODERATELY DECREASED
[2019-07-29] MEDS: DULOXETINE HCL 30 MG DELAYED RELEASE PO SCH (09:41)
[2019-07-29] MEDS: IRON-VITAMIN-MINERAL CAPSULE PO SCH ×2 (09:41→17:11)
[2019-07-29] MEDS: SPIRONOLACTONE 25 MG TAB PO SCH ×2 (09:41→17:11)
[2019-07-29] MEDS: FUROSEMIDE 40 MG TAB PO SCH ×2 (09:42→17:12)
[2019-07-29] MEDS: POTASSIUM CHLORIDE 10MEQ EA PO SCH (09:42)
[2019-07-29] MEDS: LACTULOSE SYRUP 20 GM/30 ML UDC PO SCH ×2 (09:42→17:12)
[2019-07-29] MEDS: PROPRANOLOL HCL 10 MG TAB PO SCH ×2 (09:42→17:00)
[2019-07-29] MEDS: RIFAXIMIN 550 MG TABLET PO SCH (09:42)
--- NOTE | 2019-07-29 11:20 | NUR ---
MD IN TO SEE PATIENT, NEW ORDER RECEIVED.
--- NOTE | 2019-07-29 12:18 | Progress Note ---
DATE: 07/29/2019 CHIEF COMPLAINT/HISTORY OF PRESENT ILLNESS: This is a 68-year-old woman, whose primary treating diagnosis decompensated liver cirrhosis. The patient was admitted with acute on chronic anemia during this hospitalization, which required transfusion of 2 units packed red blood cells. The patient also was admitted with a diagnosis of hepatic encephalopathy. Today's ammonia level 151. The patient's hemoglobin is 9 g/dL. The patient's BUN and creatinine today is 38 and 1.79 respectively. The patient unfortunately is only worsening clinically. The patient had chest x-ray on July 28, 2019, which revealed very low lung volumes with findings that could either be mild interstitial edema or infectious process, but no obvious lobar pneumonia was appreciated. REVIEW OF SYSTEMS: As per HPI. PHYSICAL EXAMINATION: GENERAL: She is awake, alert, oriented to herself only, not time or place. She is obviously confused. VITAL SIGNS: Blood pressure 108/68, pulse 96, respiratory rate 22, ox saturation 96% on room air, and temperature 98.9, BMI is 40. INTEGUMENT: Skin is warm and dry. No pallor, jaundice, or diaphoresis. HEENT: Anterior sclerae. Moist mucous membranes. NECK: Supple. CARDIOVASCULAR: Tachycardic rate, regular rhythm. The patient has an S3 gallop. LUNGS: Coarse breath sounds bilaterally. ABDOMEN: Obese. She has obvious fluid wave. EXTREMITIES: She has right [id number]-[id number] amputation. She has 1+ edema in the left lower leg. NEUROLOGIC: She is bedbound. She is obviously encephalopathic. DIAGNOSES: 1. Decompensated liver cirrhosis. 2. Hepatic encephalopathy. 3. Esophageal varices. 4. Acute on chronic anemia likely secondary to esophageal varices. 5. Acute on chronic renal insufficiency. 6. Acute on chronic diastolic congestive heart failure. 7. Extreme obesity, BMI 40. PLAN: 1. I spoke with the patient's adult niece, Ms. Araceli Guillen and we discussed end of life issues. 2. I informed the adult niece the patient may benefit from palliative treatment in the form of hospice care. 3. We will continue Xifaxan and lactulose for patient's hepatic encephalopathy. 4. Continue furosemide and spironolactone for patient's worsening ascites from her decompensated liver cirrhosis. 5. Follow hemoglobin and hematocrit. 6. Overall poor prognosis. I spent 35 minutes in the care of this patient. MD KIRIT Ge /[id number] MTDJeanna
--- NOTE | 2019-07-29 12:37 | NUR ---
CM called Araceli Guillen (niece) [phone]. She is not medical power of county attorney. She does not mind assisting, and said her mother could as well. She suggested CM call the son first. CM called patient's son: Sunil Avila [phone] who lives in [place], [place]. He stated he does not mind helping with decision, but the patient was recently and we should call her . He only knows that the 's name is Bryant. He does not know the 's last name. Sunil said to call him back if we need to. He is more than willing to help. CM went to pt room, but no visitors present.
--- NOTE | 2019-07-29 12:43 | NUR ---
Patient home number [phone] ARISTIDES unable to reach her , Bryant, who is Swiss speaking only. Will have CM/ SW follow up tomorrow.
--- NOTE | 2019-07-29 15:46 | NUR ---
PT REQUESTED AND RECEIVED A SNACK. IN BED WITH CALL LIGHT AT REACH.
--- NOTE | 2019-07-29 19:10 | NUR ---
BED SIDE SHIFT REPORT GIVEN TO ON COMING NURSE.
--- NOTE | 2019-07-29 20:43 | NUR ---
Pulmonary Medicine DATE: 07/29/2019 SUBJECTIVE: gerber in place still slow mentation however ao x 3 weak RA fio2 no resp distress REVIEW OF SYSTEMS: no rash, no chest pain PHYSICAL EXAMINATION: VITAL SIGNS: vital signs noted per the chart record. GENERAL: In bed, ao x 3 HEENT: Normocephalic and atraumatic. NECK: Supple. Throat midline. LUNGS: Bilateral air entry, limited, clear. CARDIOVASCULAR: S1 and S2. No murmurs, rubs, or gallops. ABDOMEN: Soft, obese, nontender. EXTREMITIES: No clubbing. No cyanosis. edema to left leg. LABORATORY DATA: k 4.1, cr 1.79. wbc 8.3, hct 28, plt 94 IMPRESSION AND PLAN: 1. Shortness of breath, multifactorial, but large component due to abdominal restriction. 2. Significantly elevated right hemidiaphragm. Suspected obesity hypoventilation syndrome. 3. Atelectasis. 4. Admit with encephalopathy, hepatic and toxic/metabolic components. 5. History of chronic diastolic congestive heart failure, mild acute congestive heart failure, probably better. 6. History of decompensated liver cirrhosis. 7. History of portal hypertension and esophageal varices. 8. Diabetes. 9. Obesity, suspected OHS 10. Obesity, possible sleep apnea. 11. History of depression. 12. Hyperlipidemia. 13. Hypertension. 14. Gastroesophageal reflux disease. 15. Anxiety. 16. History of ?ischemic heart disease. 17. History of right above-knee amputation. 18. Debility/weakness. Continue lactulose, rifaximin; treat liver disease per designated Outpatient sleep studies Aggressive therapy, PT/OT Continue to decrease abdominal distention, diuretics + paracentesis prn Lung expansion follow creatinine and k Thank you very much, Dr. Granda, for this consult. Please call for questions.
[2019-07-29] MEDS: TRAZODONE HCL 50 MG TAB PO SCH (21:27)
[2019-07-30] VITALS: BP 104/65
[2019-07-30] MEDS: GABAPENTIN 300 MG CAP PO SCH ×4 (00:13→18:13)
[2019-07-30 04:00] VITALS: BP 98/63
[2019-07-30 05:53] LABS: BASOPHILS % 0.6 % (0.0-1.0); EOSINOPHILS # (AUTO) 0.6 (0.0-0.4); EOSINOPHILS % 10.1 % (0.0-6.0); HEMOGLOBIN 8.4 g/dL (12.0-16.0); LYMPHOCYTES # (AUTO) 0.9 (1.0-3.2); MEAN CORPUSCULAR HEMOGLOBIN 34.4 pg (28-32); MEAN CORPUSCULAR HGB CONC 31.1 g/dL (31-35); MEAN CORPUSCULAR VOLUME 110.7 fL (81-99); MONOCYTES # (AUTO) 0.8 (0.2-0.8); MONOCYTES % 13.2 % (4.4-11.3); NEUTROPHILS # (AUTO) 3.8 (2.1-6.9); NEUTROPHILS % 61.8 % (38.7-80.0); PLATELET COUNT 91 x10e3/uL (140-360); RED BLOOD COUNT 2.44 x10e6/uL (3.6-5.1); RED CELL DISTRIBUTION WIDTH 18.4 % (11.7-14.4)
[2019-07-30 06:17] LABS: ALBUMIN 1.7 g/dL (3.5-5.0); ALBUMIN/GLOBULIN RATIO 0.5 (0.8-2.0); ANION GAP 9.6 mmol/L (8-16); CREATININE, SERUM 1.74 mg/dL (0.57-1.11); POTASSIUM 4.6 mmol/L (3.5-5.1)
--- NOTE | 2019-07-30 06:35 | NUR ---
patient is resting in the bed. bed is in the lowest position and call light is within reach. no signs of distress noted.
--- NOTE | 2019-07-30 07:17 | NUR ---
PATIENT IN BED RESTING WITH NO S/S OF DISTRESS. MEYER CATHETER DRAINING YELLOW URINE. BED IN LOWER POSITION, CALL LIGHT AT REACH.
[2019-07-30] MEDS: INSULIN REGULAR, HUMAN 100 UNIT/1 ML 3ML VIAL SQ SCH ×3 (07:30→16:30)
[2019-07-30 07:32] VITALS: BP 103/64
[2019-07-30 07:45] VITALS: BP 103/64
[2019-07-30] MEDS: SUCRALFATE 1 GM TAB PO SCH ×3 (08:00→16:30)
[2019-07-30] MEDS: PANTOPRAZOLE SOD 40 MG TABEC PO SCH ×2 (08:00→16:30)
[2019-07-30] MEDS: DULOXETINE HCL 30 MG DELAYED RELEASE PO SCH (09:03)
[2019-07-30] MEDS: PROPRANOLOL HCL 10 MG TAB PO SCH ×2 (09:03→17:47)
[2019-07-30] MEDS: SPIRONOLACTONE 25 MG TAB PO SCH ×2 (09:03→17:46)
[2019-07-30] MEDS: IRON-VITAMIN-MINERAL CAPSULE PO SCH ×2 (09:03→17:46)
[2019-07-30] MEDS: POTASSIUM CHLORIDE 10MEQ EA PO SCH (09:04)
[2019-07-30] MEDS: FUROSEMIDE 40 MG TAB PO SCH ×2 (09:04→17:47)
[2019-07-30] MEDS: LACTULOSE SYRUP 20 GM/30 ML UDC PO SCH ×2 (09:04→17:46)
--- NOTE | 2019-07-30 09:32 | NUR ---
CALLED HOME NUMBER NOT TAKING CALLS, CALLED SISTER VANI ALSO NOT TAKING MESSAGES, CALLED NIECE LUDIVINA [phone], SHE STATES THAT IT IS OKAY TO DO THE [facility], FILED CHOICE IN CHART AFTER SPOKE WITH PT. WILL FAX CLINICALS
--- NOTE | 2019-07-30 10:42 | Progress Note ---
DATE: 07/28/2019 CHIEF COMPLAINT/HISTORY OF PRESENT ILLNESS: This is a 68-year-old woman, whose primary treating diagnosis is decompensated liver cirrhosis, acute hepatic encephalopathy and acute ascites. The patient underwent paracentesis during this hospitalization, it was negative for spontaneous bacterial peritonitis. The patient was also found to be profoundly anemic and was transfused during this hospitalization a 2 units of packed red blood cells. The patient recently underwent MRI of the abdomen without contrast, which did not reveal any obvious hepatic mass. The patient also recently underwent a V/Q scan, which did not reveal evidence of obvious pulmonary embolism. Blood work today revealed BUN creatinine 34 and 1.68 respectively. The patient's ammonia level is 123, which is elevated. The patient's hemoglobin today is 8.4 g/dL. White blood cell count is 5800 with 55% segmented neutrophils. The nursing staff states that the patient is having profuse diarrhea and she is currently on lactulose 20 g t.i.d. REVIEW OF SYSTEMS: As per HPI. PHYSICAL EXAMINATION: GENERAL: She is awake. She is alert. She is fully oriented today. VITAL SIGNS: Blood pressure is 100/60, pulse is 94, respiratory rate 22, temperature 98.1, oxygen saturation 96% on room air. INTEGUMENT: Skin is warm and dry. No pallor, jaundice, or diaphoresis. HEENT: Anicteric sclerae with moist mucous membranes. NECK: Supple. CARDIOVASCULAR: Distant heart sounds. Tachycardic rate and regular rhythm. LUNGS: No rales. No rhonchi or wheezes. ABDOMEN: Obese. She has obvious fluid wave. She has 2+ edema in the left lower leg. She has a right pwvhv-vrb-tuxt amputation. NEUROLOGIC: No gross deficits. She is bedbound. DIAGNOSIS: 1. Decompensated liver cirrhosis. 2. Hepatic encephalopathy, resolving. 3. Acute on chronic anemia. 4. Ascites secondary to decompensated liver cirrhosis. 5. Type 2 diabetes mellitus. 6. Extreme obesity, BMI 40. PLAN: 1. Decrease lactulose to decrease lactulose 20 g from three times a day twice a day because of profuse diarrhea. 2. Continue Xifaxan 550 mg twice a day to help treat the patient's hepatic encephalopathy. 3. Continue oral furosemide and spironolactone for the patient's ascites. 4. Stop glimepiride since this medication could cause severe symptomatic hypoglycemia in people with liver disease and in people over the age of 55 years. 5. I discussed end of life issues with the patient and she states she is a full code status. 6. I also discussed the idea of palliative treatment in the form of hospice care, but the patient states that she is not interested in pursuing that type of treatment modality. 7. The patient states she wants to be discharged home today. 8. I spent 30 minutes in the care of this patient. MD STEFAN Ge/LUPIS /[id number] MTDJeanna
[2019-07-30 11:24] VITALS: BP 104/75
--- NOTE | 2019-07-30 11:33 | NUR ---
PATIENT IN BED TALKING TO HER SON VISITING, NO COMPLAIN VOICED. BED IN LOWER POSITION, CALL LIGHT AT REACH.
[2019-07-30 12:52] LABS: ANISOCYTOSIS SLIGHT; PLATELET ESTIMATE SLIGHTLY DECREASED; PLATELET MORPHOLOGY COMMENT NORMAL; POLYCHROMASIA FEW; RBC MORPHOLOGY COMMENT NORMAL
[2019-07-30 15:27] VITALS: BP 107/67
--- NOTE | 2019-07-30 15:50 | NUR ---
Pulmonary Medicine DATE: 07/30/2019 SUBJECTIVE: gerber in place son and at bedside. RA fio2 eating 1/3 declared for hospice REVIEW OF SYSTEMS: no rash, no chest pain PHYSICAL EXAMINATION: VITAL SIGNS: vital signs noted per the chart record. GENERAL: In bed, ao x 3 HEENT: Normocephalic and atraumatic. NECK: Supple. Throat midline. LUNGS: Bilateral air entry, limited, clear. CARDIOVASCULAR: S1 and S2. No murmurs, rubs, or gallops. ABDOMEN: Soft, obese, nontender. EXTREMITIES: No clubbing. No cyanosis. edema to left leg. LABORATORY DATA: ,k 4.6, cr 1.74. IMPRESSION AND PLAN: 1. Shortness of breath, multifactorial, but large component due to abdominal restriction. 2. Significantly elevated right hemidiaphragm. Suspected obesity hypoventilation syndrome. 3. Atelectasis. 4. Admit with encephalopathy, hepatic and toxic/metabolic components. 5. History of chronic diastolic congestive heart failure, mild acute congestive heart failure, probably better. 6. History of decompensated liver cirrhosis. 7. History of portal hypertension and esophageal varices. 8. Diabetes. 9. Obesity, suspected OHS 10. Obesity, possible sleep apnea. 11. History of depression. 12. Hyperlipidemia. 13. Hypertension. 14. Gastroesophageal reflux disease. 15. Anxiety. 16. History of ?ischemic heart disease. 17. History of right above-knee amputation. 18. Debility/weakness. Continue lactulose, rifaximin; treat liver disease per designated Outpatient sleep studies Aggressive therapy, PT/OT Continue to decrease abdominal distention, diuretics + paracentesis prn Lung expansion probably for hospice. possible discharge today. Thank you very much, Dr. Granda, for this consult. Please call for questions.
--- NOTE | 2019-07-30 16:19 | NUR ---
PATIENT IS TO BE DISCHARGED TO HOME WITH HOSPICE. AWAITING FOR HOSPITAL BED TO BE DELIVERED AT HOME.
--- NOTE | 2019-07-30 19:48 | NUR ---
PATIENT DISCHARGED WITH HOSPICE AT THIS TIME. IV TO L EJ D/C'D AT 1924, CATHETER TIP INTACT. PRESSURE DRESSING APPLIED. DISCHARGE PAPERWORK COMPLETED BY DAY SHIFT NURSE. VITAL SIGNS STABLE. NO QUESTIONS AT THIS TIME.
--- NOTE | 2019-07-31 04:42 | Discharge Summary ---
HOSPITAL COURSE: She is a 68-year-old female with past medical history positive for cirrhosis of the liver, history of diabetes, hypertension, diabetic neuropathy, diabetes mellitus type 2. The patient came with hepatic encephalopathy. She was started on Xifaxan and lactulose. She has had a paracentesis done due to the ascites, came back negative for growth. Blood culture came back negative for any growth. She is willing to go to hospice. She is going to be discharged today. PHYSICAL EXAMINATION: HEART: Showed regular rhythm. Normal S1, S2 sound. LUNGS: Clear bilaterally. ABDOMEN: Soft, slightly distended. EXTREMITIES: Show 1 to 2+ edema. LABORATORY DATA: On the blood work, we have a CBC; white blood count 6.21, hemoglobin 9.4, hematocrit 27.0, platelet count 91,000. On the BMP; sodium 132, potassium 4.6, chloride 105, CO2 22, BUN 42 and creatinine 1.74, glucose 96. Ammonia 220. AST 44, ALT 22. IMAGING STUDIES: The patient had an MRI of the liver, also which showed no evidence of any significant masses. She has cirrhosis. Last chest x-ray showed very low lung volumes. Cannot exclude mild interstitial edema or infectious process. No pneumonia. We did a V/Q scan came back low probability for PE. Abdominal ultrasound was done, also which show cirrhosis with ascites, possible hemangioma on the right lobe of the liver. This could represent hemangioma. MRI of the abdomen was done because of the finding contrast because of renal failure showed a cirrhosis with portal hypertension, small volume ascites. No definitive suspicious liver lesion is indicated. CT of the abdomen with or without contrast may be obtained, but the patient cannot do it because of the renal failure. going to dialysis. In any rate, the patient has been seen by Dr. Gerson Denton, for crm system administrator; Dr. Kelsey to the patient about hospice. She agreed with hospice. She is going to go home with hospice. The patient's prognosis is very poor because she has end-stage liver disease secondary to cirrhosis, recurrent due to hepatic encephalopathy. She has now renal insufficiency, so most likely she has hepatorenal syndrome. FINAL IMPRESSION: 1. 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 2. Hepatic encephalopathy. 3. Portal hypertension. 4. Pancytopenia secondary to cirrhosis of the liver. PLAN OF TREATMENT: The patient will continue with diuretics, lactulose, Xifaxan, and hospice evaluation. She agrees with that. She is going to be discharged home today. MD IMANI Olmstead/LUPIS /[id number]
== END 2019-07-30 20:00 | disposition hospice, home (50) | DRG 441 ==
LOC: ER 18:20 → ERHOLD 20:34 → MED/SURG3 22:49
PROVIDERS: ADMIT Internal Medicine; ATTEND Internal Medicine
PROC: 02HV33Z Insertion of Infusion Device into Superior Vena Cava, Percutaneous Approach (ICD-10-PCS; principal; 2019-07-20)
PROC: B548ZZA Ultrasonography of Superior Vena Cava, Guidance (ICD-10-PCS; 2019-07-20)
PROC: 0W9G3ZZ Drainage of Peritoneal Cavity, Percutaneous Approach (ICD-10-PCS; 2019-07-25)
PROC: 30233N1 Transfusion of Nonautologous Red Blood Cells into Peripheral Vein, Percutaneous Approach (ICD-10-PCS; 2019-07-25)
DX: K72.00 Acute and subacute hepatic failure without coma (principal); G92 Toxic encephalopathy; I50.33 Acute on chronic diastolic (congestive) heart failure; I85.11 Secondary esophageal varices with bleeding; Z68.41 Body mass index [BMI] 40.0-44.9, adult; I13.0 Hypertensive heart and chronic kidney disease with heart failure and stage 1 through stage 4 chronic kidney disease, or unspecified chronic kidney disease; K76.6 Portal hypertension; R18.8 Other ascites; N39.0 Urinary tract infection, site not specified; E66.2 Morbid (severe) obesity with alveolar hypoventilation; J98.11 Atelectasis; D62 Acute posthemorrhagic anemia; D61.818 Other pancytopenia; E11.22 Type 2 diabetes mellitus with diabetic chronic kidney disease; I25.2 Old myocardial infarction; K21.9 Gastro-esophageal reflux disease without esophagitis; E78.5 Hyperlipidemia, unspecified; K74.69 Other cirrhosis of liver; Z89.511 Acquired absence of right leg below knee; E11.42 Type 2 diabetes mellitus with diabetic polyneuropathy; N18.3 Chronic kidney disease, stage 3 (moderate); Z90.49 Acquired absence of other specified parts of digestive tract; Z90.710 Acquired absence of both cervix and uterus; E80.6 Other disorders of bilirubin metabolism; N28.9 Disorder of kidney and ureter, unspecified; Z96.642 Presence of left artificial hip joint; Z96.651 Presence of right artificial knee joint; Z89.611 Acquired absence of right leg above knee; D63.8 Anemia in other chronic diseases classified elsewhere; E87.6 Hypokalemia; E66.9 Obesity, unspecified; E11.21 Type 2 diabetes mellitus with diabetic nephropathy; D18.09 Hemangioma of other sites; E11.649 Type 2 diabetes mellitus with hypoglycemia without coma; R19.7 Diarrhea, unspecified; Z79.84 Long term (current) use of oral hypoglycemic drugs
CPT/HCPCS: 36415; 36555; 36600; 49083; 51700; 70450; 71045; 74181; 74470; 76700; 78580; 80048; 80053; 80307; 81001; 82105; 82140; 82550; 82553; 82607; 82728; 82746; 82948; 83540; 83605; 83735; 83880; 84132; 84466; 84484; 85025; 85045; 85610; 85730; 86850; 86900; 86920; 87040; 87070; 87205; 87635; 88112; 89051; 93005; 94640; 96372; 99251; 99284; A9540; C1729; J1817; J1940; J2543; J7030; J7050; P9016

== ENCOUNTER → 2019-07-20 | Outpatient (CLI) | payer MEDICARE, BC ==
[~2019-07-20] MED LIST changes: +CYMBALTA60 MG PO; +GADOBENATE DIMEGLUMINE 1 ML IV ONE; +HEMOCYTE PLUS1 EACH PO; +POTASSIUM CHLO20 ME1 PO; +PROPRANOLOL HCL10 MG PO; +SODIUM CHLORIDE 0.9% 50ML 50 ML ONE; +TRAZODONE HCL300 MG PO; +VICTOZA 18 MG/3 ML SC
[2019-07-20 11:50] LABS: CREATININE, SERUM 1.24 mg/dL (0.57-1.11)
--- NOTE | 2019-07-20 14:26 | Diagnostic Imaging Report ---
TECHNIQUE: MRI of the abdomen WITHOUT and WITH intravenous contrast. INDICATION: 68-year-old woman with liver mass. COMPARISON: Abdomen ultrasound 03/02/2019. FINDINGS: Suboptimal evaluation secondary to motion artifact and body habitus/ascites. LOWER THORAX: Unremarkable. LIVER: Cirrhotic morphology of the liver. No definite suspicious hepatic lesions. BILIARY: Gallbladder is not clearly visualized and may have been removed. No biliary ductal dilatation or filling defect. SPLEEN: Spleen is prominent and measures 14.5 cm in the anteroposterior dimension. PANCREAS: No focal masses or ductal dilatation. ADRENALS: No adrenal nodules. KIDNEYS/URETERS: No hydronephrosis or solid mass lesions. PERITONEUM/RETROPERITONEUM: Moderate volume ascites. LYMPH NODES: No lymphadenopathy. VESSELS: Portal vein is patent and measures 1.4 cm in diameter. Suspected small recanalized umbilical vein. Abdominal aorta is normal in caliber. GI TRACT: No distention or wall thickening. BONES AND SOFT TISSUES: Degenerative changes of the visualized spine. Mild edema in the soft tissues of the abdomen. IMPRESSION: Suboptimal evaluation secondary to motion artifact and body habitus/ascites. Cirrhosis with portal hypertension and moderate volume ascites. No definite suspicious liver lesion. If there is continued concern for liver mass, then abdomen CT with and without intravenous contrast (liver protocol) may be obtained for further evaluation. Signed by: Camilla Thomas MD on 07/20/2019 2:22 PM
== END ==
LOC: MRI 10:45
PROVIDERS: ATTEND Internal Medicine
DX: R16.0 Hepatomegaly, not elsewhere classified (principal)
CPT/HCPCS: 36415; 74183; 82565; 84520; A9577